=== PATIENT | female | born 1960 ===

== ENCOUNTER → 2020-12-06 10:36 | Outpatient (REF) | payer OTHER, SELFPAY ==
--- NOTE | 2020-12-06 10:30 | CA_ITS ---
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 Normal LV systolic and diastolic function 2. Probably mild mitral regurgitation 3. Normal RV systolic pressure 4. No pericardial effusion is Findings Left Ventricle Normal left ventricular size, thickness, and systolic function. The visually estimated ejection fraction is between 60-65%. Diastolic function is normal for age. Right Ventricle Normal right ventricular cavity size and systolic function. Atria Both atria are normal in size. Interatrial shunt cannot be excluded. Aortic Valve The aortic valve structure and function is likely normal. There is no aortic valve stenosis. There is no aortic valve regurgitation. Mitral Valve Likely normal mitral valve structure and function. There is mild mitral valve regurgitation. There is no mitral valve stenosis. Pulmonic Valve The pulmonic valve was not well visualized. Tricuspid Valve Likely normal tricuspid valve structure and function. There is trace tricuspid valve regurgitation. The right ventricular systolic pressure is normal. The right ventricular systolic pressure is 24 mmHg. Normal right atrial pressure. There is no evidence of pulmonary hypertension. Great Vessels All visible segments of the aorta are normal in size. The pulmonary artery was not well visualized. Venous The inferior vena cava is normal in size and collapses greater than 50% with inspiration. Pericardium/Pleural There is no evidence of pericardial effusion. Prior Study Comparison No significant change compared to prior study dated: 09/24/2018. Measurements 2D Linear Measurements IVSd: 1.03 0.6-0.9/0.6-1.0 cm LVIDd: 4.83 3.9-5.3/4.2-5.9 cm LVIDd Index: 2.67 2.4-3.2/2.2-3.1 cm/m2 LVIDs: 3.25 2.0-3.6 cm LVPWd: 0.94 0.7-1.1 cm Ao Root: 2.10 2.1-3.5 cm LA Diam: 3.70 2.7-3.8/3.0-4.0 cm LAIDs Index: 2.04 1.5-2.3 cm/m2 LV Mass: 209.10 67-162/88-224 g LV Mass Index: 115.53 43-95/49-115 g/m2 LVOT Diam: 2.00 3.0+(-)1.3 cm 2D Systolic Function EF 4C: 56.50 >55% Mitral Valve MV Pk E: 0.71 MV PK A: 0.53 MV Decel Time: 193.00 E/A: 1.30 E'Lateral: 12.20 E'Medial: 9.19 E/E' Med: 7.70 E/E' Lat: 5.80 PHT: 56.00 MVA PHT: 3.93 Decel [place]: 3.67 Aortic Valve AoV Pk Jared: 1.30 AoV Pk Grad: 7.00 LVOT LVOT Pk Jared: 0.98 LVOT Mn Jared: 0.67 LVOT VTI: 0.21 LVOT Pk Grad: 4.00 LVOT Mn Grad: 2.00 LVOT Diam: 2.00 LVOT Area: 3.14 Diastolic Function MV Pk E: 0.71 MV Pk A: 0.53 E/A: 1.30 E'Medial: 9.19 E/E' Med: 7.70 E' Laterial: 12.20 E/E' Lat: 5.80 Tricuspid Valve TR Pk Jared: 2.28 TR Pk Grad: 21.00 RA Press: 3.00 RVSP: 24.00 Great Vessels Aorta Ao Root-2D: 2.10 2.0-3.7 cm Ao Asc: 3.60 2.1-3.4 cm Ao Arch: 2.80 Updated in Other Vendor System with Status of Final Salvatore Carolina MD electronically signed on 12/06/2020 4:52:11 PM with status of Final
== END ==
LOC: HO.CARD 10:36
PROVIDERS: Visit Provider Family Medicine
DX: I34.0 Nonrheumatic mitral (valve) insufficiency (principal)
CPT/HCPCS: 93306

== ENCOUNTER 2020-12-24 12:45 | Outpatient (REF) | payer OTHER, SELFPAY | END 2020-12-24 12:46 | disposition home or self-care (01) | LOC: HO.HMGCLDS 12:45 | PROVIDERS: PCP Family Medicine; Visit Provider Internal Medicine | DX: Z20.822 Contact with and (suspected) exposure to COVID-19 (principal) | CPT/HCPCS: 36415; C9803; U0003 ==

== ENCOUNTER 2020-12-31 14:05 | Outpatient (REF) | payer OTHER, SELFPAY ==
[2020-12-31 14:20] LABS: Glucose Urine UA NEG (NEG); Leukocyte Esterase Urine 1+ (NEG); Nitrite Urine NEG (NEG); Specific Gravity - Urine 1.025 (1.005-1.025); UACC Culture Trigger YES; Urine Blood NEG (NEG); Urine Ketones NEG (NEG); Urine Protein NEG (NEG-TRACE)
[2020-12-31 14:21] LABS: Appearance Urine HAZY; Color Urine YELLOW
[2020-12-31 14:40] LABS: Bacteria Urine TRACE /LPF; Calcium Oxalate Crystals Urine 1+ /LPF; RBC Urine 0 /HPF (0); Squamous Epithelial Cell Urine 2+ /LPF
== END 2020-12-31 14:06 | disposition home or self-care (01) ==
LOC: HO.LNP 14:05
PROVIDERS: Visit Provider Physician Assistant
DX: N39.0 Urinary tract infection, site not specified (principal)
CPT/HCPCS: 81001; 81003; 87086

== ENCOUNTER 2021-01-08 16:45 | Outpatient (REF) | payer OTHER, SELFPAY | END 2021-01-08 16:46 | disposition home or self-care (01) | LOC: HO.LNP 16:45 | PROVIDERS: Visit Provider Nurse Practitioner Family | DX: N39.0 Urinary tract infection, site not specified (principal); N76.0 Acute vaginitis; B96.89 Other specified bacterial agents as the cause of diseases classified elsewhere | CPT/HCPCS: 87086 ==

== ENCOUNTER 2021-01-16 16:50 | Outpatient (REF) | payer OTHER, SELFPAY ==
--- NOTE | ~2021-01-16 | XR_ITS ---
EXAMINATION: XR KNEE, LEFT CLINICAL INFORMATION: Unspecified injury of left lower leg COMPARISON: Left knee 10/04/2019 TECHNIQUE: Four views of the left knee. FINDINGS: Again seen are some minimal unchanged degenerative changes in the patellofemoral joint. Some tiny osteophytes are noted arising from the tibial tuberosities. No fracture or effusion is seen. XR/XR knee LT 4V IMPRESSION: Minimal unchanged degenerative changes. No acute injury seen.
== END 2021-01-16 16:51 | disposition home or self-care (01) ==
LOC: HO.HMGCX 16:50
PROVIDERS: PCP Family Medicine; Visit Provider Nurse Practitioner Family
DX: S89.92XA Unspecified injury of left lower leg, initial encounter (principal)
CPT/HCPCS: 73564

== ENCOUNTER 2021-01-17 10:31 | Outpatient (REF) | payer OTHER, SELFPAY ==
--- NOTE | ~2021-01-17 | US_ITS ---
EXAMINATION: US ABDOMEN COMPLETE CLINICAL INFORMATION: Epigastric pain. COMPARISON: Renal ultrasound 02/11/2019 and 03/17/2014. CT abdomen and pelvis 04/12/2016. KUB 03/04/2011. TECHNIQUE: Real-time imaging of the abdominal viscera. FINDINGS: PANCREAS: Visualized pancreas is unremarkable. The tail is obscured by bowel gas shadowing. ABDOMINAL AORTA: Visualized portions unremarkable. INFERIOR VENA CAVA: Visualized portions unremarkable. LIVER: Unremarkable. GALLBLADDER: Unremarkable. COMMON BILE DUCT: Normal in caliber measuring 0.5 cm in diameter. RIGHT KIDNEY: 11.7 cm. Unremarkable. LEFT KIDNEY: 11.8 cm. Unremarkable. SPLEEN: 10.0 cm. Unremarkable. FREE FLUID: None. US/US abdomen complete IMPRESSION: Unremarkable abdominal ultrasound.
== END 2021-01-17 10:32 | disposition home or self-care (01) ==
LOC: HO.HMGCX 10:31
PROVIDERS: PCP Family Medicine; Visit Provider Family Medicine
DX: R10.13 Epigastric pain (principal)
CPT/HCPCS: 76700

== ENCOUNTER 2021-01-28 12:07 | Outpatient (REF) | payer OTHER, SELFPAY ==
--- NOTE | ~2021-01-28 | XR_ITS ---
EXAMINATION: XR KNEE, RIGHT CLINICAL INFORMATION: Pain COMPARISON: Previous x-ray September 2019 TECHNIQUE: Four views of the right knee. FINDINGS: Bone alignment is normal. No fracture or dislocation is seen. There are small osteophytes at the patellofemoral joint. Joint spaces are otherwise normal. There is an osteophyte at the quadriceps tendon insertion to the patella. There is no joint effusion. XR/XR knee RT 4V IMPRESSION: Mild degenerative changes at the patellofemoral joint.
--- NOTE | ~2021-01-28 | XR_ITS ---
EXAMINATION: LEFT ELBOW AND FOREARM X-RAY CLINICAL INFORMATION: Pain COMPARISON: None TECHNIQUE: 3 views of the left elbow and 2 views of the left forearm FINDINGS: Left elbow: Bone alignment is normal. No fracture or dislocation is seen. Joint spaces are normal. There is no joint effusion. Left forearm: Bone alignment is normal. No acute fracture or dislocation is seen. There is question of old trauma to the radial styloid. Joint spaces are normal. Soft tissues are normal. XR/XR forearm LT 2V IMPRESSION: Left elbow: Unremarkable exam. Left forearm: Question old trauma to the radial styloid otherwise unremarkable exam.
--- NOTE | ~2021-01-28 | XR_ITS ---
EXAMINATION: LEFT ELBOW AND FOREARM X-RAY CLINICAL INFORMATION: Pain COMPARISON: None TECHNIQUE: 3 views of the left elbow and 2 views of the left forearm FINDINGS: Left elbow: Bone alignment is normal. No fracture or dislocation is seen. Joint spaces are normal. There is no joint effusion. Left forearm: Bone alignment is normal. No acute fracture or dislocation is seen. There is question of old trauma to the radial styloid. Joint spaces are normal. Soft tissues are normal. XR/XR elbow LT min 3V IMPRESSION: Left elbow: Unremarkable exam. Left forearm: Question old trauma to the radial styloid otherwise unremarkable exam.
== END 2021-01-28 12:08 | disposition home or self-care (01) ==
LOC: HO.XRAY 12:07
PROVIDERS: Visit Provider Nurse Practitioner Family
DX: M25.561 Pain in right knee (principal); M79.602 Pain in left arm
CPT/HCPCS: 73080; 73090; 73564

== ENCOUNTER 2021-03-15 11:54 | Outpatient (REF) | payer OTHER, SELFPAY ==
--- NOTE | ~2021-03-15 | XR_ITS ---
EXAMINATION: XR HAND, LEFT CLINICAL INFORMATION: Pain COMPARISON: Left hand x-ray August 2010 TECHNIQUE: PA, lateral, and oblique views of the left hand. FINDINGS: The bones and soft tissues are normal. No fracture. Alignment is anatomic. Joint spaces are maintained. No erosions or soft tissue calcifications. XR/XR hand LT min 3V IMPRESSION: Normal left hand.
== END 2021-03-15 11:55 | disposition home or self-care (01) ==
LOC: HO.HMGCX 11:54
PROVIDERS: PCP Family Medicine; Visit Provider Nurse Practitioner Family
DX: M79.645 Pain in left finger(s) (principal)
CPT/HCPCS: 73130

== ENCOUNTER 2021-04-25 14:09 | Outpatient (REF) | payer OTHER, SELFPAY ==
--- NOTE | ~2021-04-25 | XR_ITS ---
EXAMINATION: XR CHEST 2 VIEWS CLINICAL INFORMATION: Persistent nocturnal cough of several months duration. COMPARISON: Radiographs dated 01/28/2018. TECHNIQUE: Frontal and lateral views of the chest were obtained. FINDINGS: The heart, great vessels, pulmonary vasculature and mediastinum are normal. The lungs show no focal infiltrate, effusion or pneumothorax. There is no acute osseous abnormality. There is multi-level thoracic spondylosis, with an appearance suggesting possible DISH (diffuse idiopathic skeletal hyperostosis). XR/XR chest 2V IMPRESSION: No active cardiopulmonary disease.
== END 2021-04-25 14:10 | disposition home or self-care (01) ==
LOC: HO.XRAY 14:09
PROVIDERS: PCP Family Medicine; Visit Provider Family Medicine
DX: R05 Cough (principal)
CPT/HCPCS: 71046

== ENCOUNTER 2021-06-17 11:06 | Outpatient (REF) | payer OTHER, SELFPAY ==
--- NOTE | ~2021-06-17 | XR_ITS ---
EXAMINATION: XR RIBS, LEFT CLINICAL INFORMATION: Pleurodynia COMPARISON: None TECHNIQUE: 3 views of the left ribs were obtained. FINDINGS: The lungs are well-expanded and clear. The heart size and pulmonary vascularity is normal. There is moderate spondylosis dorsal spine. No lytic process. Multiple views of left ribs reveal no visible acute fracture, dislocation or subluxation seen. No soft tissue abnormality seen. XR/XR ribs LT min 3V w CXR1V IMPRESSION: No acute cardiopulmonary process seen. No visible left rib fracture.
== END 2021-06-17 11:07 | disposition home or self-care (01) ==
LOC: HO.XRAY 11:06
PROVIDERS: PCP Family Medicine; Referring Provider Family Medicine; Visit Provider Emergency Medicine
DX: R07.81 Pleurodynia (principal); Z91.81 History of falling
CPT/HCPCS: 71101

== ENCOUNTER 2021-08-30 13:55 | Outpatient (REF) | payer OTHER, SELFPAY ==
--- NOTE | ~2021-08-30 | MM_ITS ---
EXAMINATION: MM SCREENING DIGITAL BREAST TOMOSYNTHESIS, BILATERAL CLINICAL INFORMATION: Screening. Asymptomatic. The lifetime risk of breast cancer based on the Tyrer-Cuzick Model is 5%. COMPARISON: Mammography: 08/24/2020, 04/19/2019, 03/22/2018 TECHNIQUE: Digital breast tomosynthesis is performed in both the craniocaudal and mediolateral oblique views along with computer-aided detection (CAD). Synthesized 2D images are generated from the tomosynthesis. Additional bilateral CC and additional bilateral MLO views are provided. FINDINGS: There are scattered areas of fibroglandular density (ACR BI-RADS breast composition Category b). Breast tissue composition borders on predominantly fatty. Background stromal and fibroglandular densities are stable. There is no interval mass or architectural abnormality or abnormal calcifications. The axilla and skin contours are unremarkable. No significant changes. MM/MM tomosynthesis screening BI IMPRESSION: No mammographic evidence of malignancy. ASSESSMENT: BI-RADS 1: Negative RECOMMENDATION: Routine annual mammography screening. This patient's information was entered into a reminder system with a target due date for their next mammogram.
== END 2021-08-30 13:56 | disposition home or self-care (01) ==
LOC: HO.MAMMO 13:55
PROVIDERS: Visit Provider Family Medicine
DX: Z12.31 Encounter for screening mammogram for malignant neoplasm of breast (principal)
CPT/HCPCS: 77063; 77067

== ENCOUNTER → 2021-09-12 09:40 | Outpatient (BNVA) | payer OTHER, SELFPAY | PROVIDERS: PCP Family Medicine; Visit Provider Internal Medicine Pulmonary Disease | DX: K21.9 Gastro-esophageal reflux disease without esophagitis (principal); R05.3 Chronic cough | CPT/HCPCS: 99202 ==

== ENCOUNTER 2021-09-23 09:52 | Outpatient (REF) | payer OTHER, SELFPAY ==
--- NOTE | 2021-09-23 17:11 | PFT_ITS ---
The patient was unable to perform slow vital capacity maneuver despite several attempts and different coaching methods. The patient did not want to continue further with the test. Test was aborted. IMPRESSION: Aborted pulmonary function test. MD NATIVIDAD Pozo/KIM / [phone]
== END 2021-09-23 09:53 | disposition home or self-care (01) ==
LOC: HO.RESP 09:52
PROVIDERS: PCP Family Medicine; Visit Provider Internal Medicine Pulmonary Disease
DX: Z13.89 Encounter for screening for other disorder (principal)

== ENCOUNTER 2021-09-25 14:09 | Outpatient (REF) | payer OTHER, SELFPAY ==
[2021-09-25 15:08] LABS: Influenza A PCR NEGATIVE (Negative); Influenza B PCR NEGATIVE (Negative); Resp Syncy Virus RNA Qual PCR NEGATIVE (Negative); SARS COV2 PCR INHOUSE POSITIVE (Negative)
== END 2021-09-25 14:10 | disposition home or self-care (01) ==
LOC: HO.LNP 14:09
PROVIDERS: Visit Provider Physician Assistant Medical
DX: J06.9 Acute upper respiratory infection, unspecified (principal); Z20.822 Contact with and (suspected) exposure to COVID-19
CPT/HCPCS: 0241U

== ENCOUNTER → 2021-12-04 14:08 | Outpatient (BNVA) | payer OTHER, SELFPAY | PROVIDERS: PCP Family Medicine; Visit Provider Internal Medicine Pulmonary Disease | DX: R05.3 Chronic cough (principal) | CPT/HCPCS: 99212 ==

== ENCOUNTER → 2022-03-21 13:32 | Outpatient (BNVA) | payer OTHER, SELFPAY | PROVIDERS: PCP Family Medicine; Visit Provider Internal Medicine Pulmonary Disease | DX: R05.3 Chronic cough (principal); Z79.899 Other long term (current) drug therapy | CPT/HCPCS: 99212 ==

== ENCOUNTER 2022-04-17 07:56 | Outpatient (REF) | payer OTHER, SELFPAY | END 2022-04-17 07:57 | disposition home or self-care (01) | LOC: HO.HOSX 07:56 | PROVIDERS: Visit Provider Physician Assistant | DX: Z13.89 Encounter for screening for other disorder (principal) ==

== ENCOUNTER 2022-04-29 09:02 | Outpatient (REF) | payer OTHER, SELFPAY | END 2022-04-29 09:03 | disposition home or self-care (01) | LOC: HO.HOSX 09:02 | PROVIDERS: Visit Provider Orthopaedic Surgery | DX: Z13.89 Encounter for screening for other disorder (principal) ==

== ENCOUNTER 2022-05-22 05:38 | Outpatient (REF) | payer OTHER, SELFPAY ==
--- NOTE | ~2022-05-22 | XR_ITS ---
EXAMINATION: AP BILATERAL KNEE AND LEFT KNEE 2 VIEWS CLINICAL INFORMATION: Pain right knee. COMPARISON: Right knee 01/28/2021. TECHNIQUE: AP bilateral knee standing and right knee 2 views. FINDINGS: AP BILATERAL KNEE: The medial and lateral compartment joint space of both knees are normal. No visible fracture, dislocation or bony erosive changes seen. The soft tissues are normal. LEFT KNEE: There is loss of patellofemoral compartment joint space. No bony erosive changes. The soft tissues are normal. XR/XR knee standing BI IMPRESSION: Unremarkable AP bilateral knee exam. Unremarkable left knee exam.
--- NOTE | ~2022-05-22 | XR_ITS ---
EXAMINATION: AP BILATERAL KNEE AND LEFT KNEE 2 VIEWS CLINICAL INFORMATION: Pain right knee. COMPARISON: Right knee 01/28/2021. TECHNIQUE: AP bilateral knee standing and right knee 2 views. FINDINGS: AP BILATERAL KNEE: The medial and lateral compartment joint space of both knees are normal. No visible fracture, dislocation or bony erosive changes seen. The soft tissues are normal. LEFT KNEE: There is loss of patellofemoral compartment joint space. No bony erosive changes. The soft tissues are normal. XR/XR knee LT 2V IMPRESSION: Unremarkable AP bilateral knee exam. Unremarkable left knee exam.
== END 2022-05-22 05:39 | disposition home or self-care (01) ==
LOC: HO.HOSX 05:38
PROVIDERS: Visit Provider Physician Assistant
DX: M22.2X2 Patellofemoral disorders, left knee (principal); M25.561 Pain in right knee; M25.562 Pain in left knee; M17.0 Bilateral primary osteoarthritis of knee
CPT/HCPCS: 73560; 73565; 99212

== ENCOUNTER 2022-08-08 12:39 | Outpatient (REF) | payer OTHER, SELFPAY ==
--- NOTE | ~2022-08-08 | XR_ITS ---
EXAMINATION: XR WRIST, RIGHT CLINICAL INFORMATION: Right wrist pain. COMPARISON: None TECHNIQUE: PA, lateral, and oblique views of the right wrist. FINDINGS: The bones and soft tissues are unremarkable aside from the presence of a tiny focus of calcification at the tip of the ulnar styloid of questionable significance. Alignment is anatomic with normal joint spaces. No erosions or abnormal soft tissue calcifications. XR/XR wrist RT min 3V IMPRESSION: No acute finding. Tiny area of calcification in the tip of the ulnar styloid may be related to remote trauma.
== END 2022-08-08 12:40 | disposition home or self-care (01) ==
LOC: HO.HMGCX 12:39
DX: M25.531 Pain in right wrist (principal)
CPT/HCPCS: 73110

== ENCOUNTER 2022-08-12 09:05 | Outpatient (REF) | payer OTHER, SELFPAY ==
--- NOTE | ~2022-08-12 | XR_ITS ---
EXAMINATION: XR HAND, RIGHT CLINICAL INFORMATION: Pain in right hand. COMPARISON: X-rays of the right wrist 08/08/2022 TECHNIQUE: PA, lateral, and oblique views of the right hand. FINDINGS: The bones and soft tissues are normal. No fracture. Alignment is anatomic. Joint spaces are maintained. No erosions. Minimal tiny calcification distal to the ulnar styloid unchanged dating back to 2009 likely dystrophic without clinical significance. XR/XR hand RT min 3V IMPRESSION: Normal right hand.
== END 2022-08-12 09:06 | disposition home or self-care (01) ==
LOC: HO.HOSX 09:05
PROVIDERS: Visit Provider Orthopaedic Surgery
DX: M65.4 Radial styloid tenosynovitis [de Quervain] (principal)
CPT/HCPCS: 20550; 73130; 99202; J1100

== ENCOUNTER 2022-09-01 10:28 | Outpatient (REF) | payer OTHER, SELFPAY ==
--- NOTE | ~2022-09-01 | MM_ITS ---
EXAMINATION: MM SCREENING DIGITAL BREAST TOMOSYNTHESIS, BILATERAL CLINICAL INFORMATION: Screening. Asymptomatic. The lifetime risk of breast cancer based on the Tyrer-Cuzick Model is 5%. COMPARISON: Mammography: 08/30/2021, 08/24/2020, 04/19/2019 TECHNIQUE: Digital breast tomosynthesis is performed in both the craniocaudal and mediolateral oblique views along with computer-aided detection (CAD). Synthesized 2D images are generated from the tomosynthesis. FINDINGS: There are scattered areas of fibroglandular density (ACR BI-RADS breast composition Category b). There are no significant masses, abnormal calcifications, or other abnormalities. Breast tissue composition borders on predominantly fatty. The stromal and fibroglandular markings are stable. No developing density. No architectural abnormality. The axilla are unremarkable. MM/MM tomosynthesis screening BI IMPRESSION: No mammographic evidence of malignancy. ASSESSMENT: BI-RADS 1: Negative RECOMMENDATION: Routine annual mammography screening. This patient's information was entered into a reminder system with a target due date for their next mammogram.
== END 2022-09-01 10:29 | disposition home or self-care (01) ==
LOC: HO.MAMMO 10:28
PROVIDERS: PCP Family Medicine; Visit Provider Family Medicine
DX: Z12.31 Encounter for screening mammogram for malignant neoplasm of breast (principal)
CPT/HCPCS: 77063; 77067

== ENCOUNTER 2022-09-21 00:33 | Emergency (ER) | payer OTHER, SELFPAY ==
--- NOTE | ~2022-09-21 | XR_ITS ---
EXAMINATION: XR FOOT, RIGHT CLINICAL INFORMATION: Toe pain COMPARISON: None TECHNIQUE: AP, lateral, and oblique views of the right foot. FINDINGS: No acute fracture or dislocation. Demineralized bones. Small marginal osteophytes of the first metatarsophalangeal joint. Bulky plantar posterior calcaneal enthesophytes. Diffuse mild soft tissue swelling. XR/XR foot RT 2V IMPRESSION: No acute findings
[2022-09-21 00:54] VITALS: BP 154/89; PULSE 84; RESP 20; TEMP 37.3; O2SAT 98; BMI 37.3
[2022-09-21] MEDS: Acetaminophen 325 MG TABLET 650 MG PO (00:59)
[2022-09-21 04:39] VITALS: BP 137/73; PULSE 90; RESP 20; TEMP 36.7; O2SAT 99
--- NOTE | 2022-09-21 06:10 | ED_ITS ---
HPI - Extremity Injury (Lower) General Chief Complaint: Extremity Injury, Lower Stated Complaint: foot pain Time Seen by Provider: 09/21/22 05:28 Source: patient Mode of arrival: ambulatory History of Present Illness HPI Narrative: 61-year-old female who is diabetic states that she began having significant pain at the right MTP and denies any preceding trauma. Related Data Home Medications Medication Instructions Recorded Confirmed aspirin 81 mg tablet,delayed 81 mg PO DAILY 03/15/21 09/20/22 release atorvastatin 40 mg tablet 40 mg PO BEDTIME 03/15/21 09/20/22 cholecalciferol (vitamin D3) 50 50 mcg PO DAILY 03/15/21 09/20/22 mcg (2,000 unit) tablet docusate sodium 100 mg capsule 100 mg PO BID 03/15/21 09/20/22 multivitamin-ferrous 0 tab PO 03/15/21 09/20/22 fumarate-folic acid 18 mg-400 mcg tablet omeprazole 20 mg capsule,delayed 20 mg PO BID 03/15/21 09/20/22 release polyethylene glycol 3350 17 17 g PO DAILY PRN constipation 03/15/21 09/20/22 gram/dose oral powder sertraline 50 mg tablet 50 mg PO DAILY 03/15/21 09/20/22 albuterol sulfate 90 mcg/actuation 2 puff PO Q4-6H PRN cough 03/21/22 09/20/22 aerosol inhaler losartan 50 mg tablet 50 mg PO DAILY 03/21/22 09/20/22 ascorbate calcium (vitamin C) 500 500 mg PO DAILY 05/22/22 09/20/22 mg tablet blood sugar diagnostic (FreeStyle #10 ea 05/22/22 09/20/22 Lite Strips) omega 0-gwq-ipa-fish oil 100 cap PO DAILY 05/22/22 09/20/22 mg-160 mg-1,000 mg capsule (Fish Oil) polyethylene glycol 3350 17 gram 17 g PO DAILY 09/20/22 09/20/22 oral powder packet (Miralax) Previous Rx's Medication Instructions Recorded fluticasone furoate 200 1 inh inhalation DAILY 30 days #1 12/04/21 mcg-vilanterol 25 mcg/dose ea inhalation powder (Breo Ellipta) diclofenac sodium 1 % topical gel 2 g topical QID #100 grams 09/20/22 (Voltaren Arthritis Pain) Allergies Allergy/AdvReac Type Severity Reaction Status Date / Time ibuprofen [From MOTRIN] Allergy Mild RASH Verified 09/21/22 00:53 Motrin Allergy Unknown rash Verified 09/21/22 00:53 Review of Systems Review of Systems: Pertinent positives and negatives as stated in HPI 10 point review of systems is otherwise negative. 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 GENERAL: Well developed, well nourished, in no acute distress. HEAD: Normocephalic/atraumatic EYES: PERRLA, EOMI EARS: Ext canals without abnormality OROPHARYNX: no oral lesions noted, posterior pharynx clear LUNGS: Normal breath sounds. No adventitious sounds or accessory muscle use. SpO2<99> CARDIOVASCULAR: Regular rate and rhythm without noted murmurs ABDOMEN: Soft, non-tender, non-distended with bowel sounds. MUSCULOSKELETAL: No tenderness, deformities, or effusions noted on gross inspection. EXTREMITIES: No cyanosis, clubbing or edema; RIGHT GREAT TOE: Erythematous and mildly swollen at the MTP, appears to be consistent with a gouty flare, no skin breaks noted, no toenail injuries. SKIN: Inspection of the skin reveals no rashes NEUROLOGIC: Alert and oriented x 4. Strength and sensation to light touch were grossly intact x 4. Course Course Course Narrative: 61-year-old female with history and clinical presentation most likely consistent with gout flare and will provide medication and I have instructed this patient to follow-up with her primary care provider. Review of the x-ray is negative for any bony or joint abnormality. Discharge Plan Discharge Clinical Impression: Gout attack Patient Disposition: Home, Self-Care Instructions: Gout (ED), Low Purine Diet (ED) Additional Instructions: 1. Resume all home medications as prescribed. 2. Suspect that you have gout and have undergone initial treatment. 3. Drink plenty of water over the next 24-48 hours. 4. Please follow-up with primary care provider by calling the office on Thursday morning. Return to the ER for worsening symptoms. Prescriptions: No Action polyethylene glycol 3350 17 gram/dose powder 17 g PO DAILY PRN (Reason: constipation) Centrum Women 18-400 mg-mcg tablet 0 tab PO cholecalciferol (vitamin D3) 50 mcg (2,000 unit) tablet 50 mcg PO DAILY sertraline 50 mg tablet 50 mg PO DAILY aspirin 81 mg tablet,delayed release (DR/EC) 81 mg PO DAILY omeprazole 20 mg capsule,delayed release(DR/EC) 20 mg PO BID atorvastatin 40 mg tablet 40 mg PO BEDTIME docusate sodium 100 mg capsule 100 mg PO BID polyethylene glycol 3350 [Miralax] 17 gram powder in packet 17 g PO DAILY diclofenac sodium [Voltaren Arthritis Pain] 1 % gel 2 g topical QID Qty: 100 0RF Rx Instructions: apply to single elbow, wrist or hand; for hand includes palm/fingers/back of hand losartan 50 mg tablet 50 mg PO DAILY albuterol sulfate 90 mcg/actuation HFA aerosol inhaler 2 puff PO Q4-6H PRN (Reason: cough) (DME) FreeStyle Lite Strips Strip See Rx Instructions Not Applicable BID Qty: 10 Rx Instructions: As directed ascorbate calcium (vitamin C) 500 mg tablet 500 mg PO DAILY Fish Oil 100-160-1,000 mg capsule PO DAILY Breo Ellipta 200-25 mcg/dose blister with device 1 inh inhalation DAILY 30 Days Qty: 1 6RF Referrals: Lorene Lugo DO [Primary Care Provider] -
[2022-09-21] MEDS: Colchicine 0.6 MG TABLET 1.2 MG PO (06:32)
[2022-09-21] MEDS: Colchicine 0.6 MG TABLET PO (06:34)
== END 2022-09-21 06:43 | disposition home or self-care (01) ==
PROVIDERS: Emergency Provider Student in an Organized Health Care Education/Training Program; PCP Family Medicine
DX: M10.09 Idiopathic gout, multiple sites (principal); Z79.899 Other long term (current) drug therapy
CPT/HCPCS: 73620; 99284

== ENCOUNTER → 2022-09-30 09:25 | Outpatient (BNVA) | payer OTHER, SELFPAY | PROVIDERS: PCP Family Medicine; Visit Provider Orthopaedic Surgery | DX: M65.4 Radial styloid tenosynovitis [de Quervain] (principal) | CPT/HCPCS: 99212 ==

== ENCOUNTER 2022-10-13 10:30 | Day surgery (SDC) | payer OTHER, SELFPAY ==
[2022-10-13 11:53] VITALS: BP 153/60; PULSE 75; RESP 16; TEMP 36.7; O2SAT 97; BMI 37.3
--- NOTE | 2022-10-13 13:16 | MHC.SHP ---
Pre-Procedural Eval Section A Date of Service: 10/13/22 The patient is an INPATIENT: No Changes since office visit: No Cold of Flu in the past 2 weeks, No New Medical Problems, No Changes in Medication and No Patient answered all questions The History & Physical has been completed within 30 days and I have reviewed it.: Yes Section B Chief Complaint: Radial styloid tenosynovitis [de Quervain] Allergies: Allergies Allergy/AdvReac Type Severity Reaction Status Date / Time ibuprofen [From MOTRIN] Allergy Mild RASH Verified 09/30/22 10:00 Motrin Allergy Unknown rash Verified 09/30/22 10:00 Plan I have reviewed the history and physical and performed a pertinent physical examination on my patient. No changes have occurred unless specified.
--- NOTE | 2022-10-13 13:16 | W.PM.OPN ---
Operative Note Operative Note Date of Service: 10/13/22 Narrative: Operative Note Preop diagnosis: 1. [ ] DeQuervain's tenosynovitis Postop diagnosis: 1. right DeQuervain's tenosynovitis Procedure: 1. right 1st dorsal compartment release 2. Right abductor pollicis longus tenosynovectomy Surgeon: Antonia Saavedra MD Anesthesia: local block using 1% lidocaine with epinephrine Findings: Thickened 1st dorsal compartment. abundant inflamed tenosynovium about the APL tendon EBL: Less than 5 mL Tourniquet time: None Specimens: None Complications: None Disposition: Brought to recovery room in stable condition Plan: Follow-up for 7-10 days for wound check and suture removal Indications: The patient is 61 years old, with right DeQuervain's tenosynovitis that has been unresponsive to nonoperative management. The risks and benefits of operative treatment including but not limited to risk of damage to blood vessels, nerves, tendons, infection, persistent pain, persistent symptoms, recurrence or possible need for additional surgery were discussed with the patient and the patient wishes to proceed with surgery. Procedure: Once consent was obtained a local block was performed in the preop area using a combination of 1% lidocaine with epinephrine. The patient was then brought back to the operating suite and placed on the operative table in supine position. A tourniquet was applied to the proximal aspect of the right upper extremity and the limb was prepped and draped in a standard surgical fashion. Once assured that we had a good block, a 1.5 cm longitudinal incision was made centered over the 1st dorsal compartment as it passed over the radial styloid of the right wrist. The incision was made through the skin to the subcutaneous tissues using a #15 blade. Careful dissection was made down to the level of the 1st dorsal compartment using tenotomy scissors, with care being taken to protect the nearby branches of the superficial radial nerve. Once the 1st dorsal compartment was exposed, A longitudinal incision was made in the 1st dorsal compartment 1st using a #15 blade, then using tenotomy scissors under direct visualization. The 1st dorsal compartment was noted to be thickened. both the APL and EPB tendons were noted to be in the same compartment. However, there was abundant inflamed tenosynovium about the APL tendon as well as a bit of an hourglass deformity of the tendon. I performed a tenosynovectomy excising this inflamed tenosynovium from about the APL tendon using tenotomy scissors. Following our release, we saw smooth gliding abductor pollicis longus and extensor pollicis brevis tendons. Once satisfied with our 1st dorsal compartment release and tenosynovectomythe wound was copiously irrigated with normal saline and hemostasis was obtained with a brief period of local pressure. The subcutaneous layer was closed with some 4-0 Vicryl suture, and the skin edges were reapproximated with some 5.0 nylon suture material. A sterile dressing was applied. The patient appears to have tolerated the procedure well and with no complications. All digits were well vascularized at the conclusion of the case.
[2022-10-13 14:23] VITALS: BP 144/62; PULSE 83; RESP 18; TEMP 36.8; O2SAT 97
== END 2022-10-13 14:33 | disposition home or self-care (01) ==
PROVIDERS: PCP Family Medicine; Visit Provider Orthopaedic Surgery
PROC: (CPT 25000; principal; 2022-10-13 12:00)
DX: M65.4 Radial styloid tenosynovitis [de Quervain] (principal)
CPT/HCPCS: 25000; J0171

== ENCOUNTER 2023-01-12 11:14 | Outpatient (REF) | payer OTHER, SELFPAY ==
--- NOTE | ~2023-01-12 | US_ITS ---
EXAMINATION: US RETROPERITONEAL LIMITED (RENAL ONLY) CLINICAL INFORMATION: Pain abdomen and flank. COMPARISON: Abdominal ultrasound 01/17/2021, lumbar radiographs 07/12/2019 TECHNIQUE: Ultrasound of the kidneys is performed using grayscale imaging and color Doppler. FINDINGS: RIGHT KIDNEY: 11.3 x 4.6 x 6.0 cm (SAG x AP x TRV). The kidney is normal in size, contour, and echogenicity. Renal cortical thickness is normal. No focal parenchymal lesions. No hydronephrosis or caliectasis. There are scattered specular echoes in the renal sinus but no focal posterior acoustic shadowing or definite twinkling artifact to confirm nonobstructing calculi. LEFT KIDNEY: 11.2 x 5.0 x 6.0 cm (SAG x AP x TRV). The kidney is normal in size, contour, and echogenicity. Renal cortical thickness is normal. No focal parenchymal lesions. No hydronephrosis or caliectasis. There are scattered specular echoes in the renal sinus but no focal posterior acoustic shadowing or definite twinkling artifact to confirm nonobstructing calculi. US/US renal BI IMPRESSION: 1. No hydronephrosis or caliectasis. 2. No definite posterior acoustic shadowing or twinkling artifact to confirm nonobstructing calculi.
== END 2023-01-12 11:15 | disposition home or self-care (01) ==
LOC: HO.HMGCX 11:14
PROVIDERS: PCP Family Medicine; Visit Provider Nurse Practitioner Family
DX: R10.9 Unspecified abdominal pain (principal); M54.50 Low back pain, unspecified; N39.0 Urinary tract infection, site not specified
CPT/HCPCS: 76775

== ENCOUNTER → 2023-04-29 08:33 | Outpatient (REF) | payer OTHER, SELFPAY ==
--- NOTE | 2023-04-29 08:36 | CA_ITS ---
Transthoracic Echocardiogram Patient (Last, First, Middle): Cheryl Samson I Gender: Female Date of : 1960 Age: 62 Procedure Date: 04/29/2023 Procedure Type: Transthoracic Echocardiogram Location: OP Height: 152.4 cm Weight: 87.54 kg BSA: 1.84 m2 Heart Rate: bpm BP: 130 / 70 mmHg [employer]: TO Referring MD: Lorene Lugo DO Organisation And Methods Analyst: Salvatore Carolina MD Symptoms: FATIGUE R53.83 WORSNING , H/O MR FOR FU Study Quality: Technically Difficult/No IV Access ECG Rhythm: Sinus Conclusions: - 1. Technically limited study, IV access could not be obtained 2. Normal LV systolic function with LVEF of 55-60% with normal filling pattern 3. Mild mitral regurgitation 4. Upper limits normal ascending aortic size Findings Left Ventricle Normal left ventricular size, thickness, and systolic function. The visually estimated ejection fraction is between 55-60%. Regional wall motion abnormalities can not be excluded due to suboptimal endocardial definition. Spectral Doppler is indicative of a normal filling pattern. Right Ventricle Normal right ventricular cavity size and systolic function. Atria The left atrium is likely dilated. Interatrial shunt cannot be excluded. The right atrium was not well visualized. Aortic Valve The aortic valve was not well visualized. There is no aortic valve stenosis. There is no aortic valve regurgitation. Mitral Valve There is mild anterior mitral leaflet thickening. There is mild mitral annular calcification. There is mild mitral valve regurgitation. There is no mitral valve stenosis. Pulmonic Valve The pulmonic valve was not well visualized. Tricuspid Valve The tricuspid valve was not well visualized. Tricuspid regurgitation envelope is inadequate for calculation of right ventricular systolic pressure. Normal right atrial pressure. Great Vessels The pulmonary artery was not well visualized. Venous The inferior vena cava is normal in size. Pericardium/Pleural The pericardium was not well visualized. Prior Study Comparison No significant change compared to prior study dated: 12/06/2020. Measurements 2D Linear Measurements IVSd: 1.07 0.6-0.9/0.6-1.0 cm LVIDd: 4.72 3.9-5.3/4.2-5.9 cm LVIDd Index: 2.57 2.4-3.2/2.2-3.1 cm/m2 LVIDs: 2.98 2.0-3.6 cm LVPWd: 0.88 0.7-1.1 cm LA Diam: 3.40 2.7-3.8/3.0-4.0 cm LAIDs Index: 1.85 1.5-2.3 cm/m2 LV Mass: 199.11 67-162/88-224 g LV Mass Index: 108.21 43-95/49-115 g/m2 LVOT Diam: 2.10 3.0+(-)1.3 cm 2D Systolic Function EF 4C: 56.60 >55% Mitral Valve MV Pk E: 0.69 MV PK A: 0.60 MV Decel Time: 242.00 E/A: 1.20 E'Lateral: 10.10 E'Medial: 5.66 E/E' Med: 12.20 E/E' Lat: 6.80 PHT: 75.00 MVA PHT: 2.93 Decel [place]: 2.56 Aortic Valve AoV Pk Jared: 1.32 AoV Mn Jared: 0.90 AoV VTI: 0.30 AoV Pk Grad: 7.00 Aov Mn Grad: 4.00 KALEN Cont.VTI: 2.39 LVOT LVOT Pk Jared: 0.95 LVOT Mn Jared: 0.63 LVOT VTI: 0.21 LVOT Pk Grad: 4.00 LVOT Mn Grad: 2.00 LVOT Diam: 2.10 LVOT Area: 3.46 Diastolic Function MV Pk E: 0.69 MV Pk A: 0.60 E/A: 1.20 E'Medial: 5.66 E/E' Med: 12.20 E' Laterial: 10.10 E/E' Lat: 6.80 Right Ventricle TAPSE (mm): 20.70 TVS' Jared: 14.40 Tricuspid Valve RA Press: 3.00 Great Vessels Aorta Sinus of Valsalva: 2.86 2.0-3.[address] [place]: 2.43 1.7-3.4 cm Ao Asc: 3.60 2.1-3.4 cm Updated in Other Vendor System with Status of Final Salvatore Carolina MD electronically signed on 05/01/2023 12:54:32 PM with status of Final
== END ==
LOC: HO.CARD 08:33
PROVIDERS: PCP Family Medicine; Visit Provider Family Medicine
DX: G47.30 Sleep apnea, unspecified (principal); R53.83 Other fatigue
CPT/HCPCS: 93306

== ENCOUNTER 2023-06-19 18:04 | Outpatient (REF) | payer OTHER, SELFPAY ==
[2023-06-20 11:48] LABS: BV Int Neg Control Negative (Negative); BV Int Pos Control Positive (Positive)
== END 2023-06-19 18:05 | disposition home or self-care (01) ==
LOC: HO.HHCLNP 18:04
PROVIDERS: Visit Provider Student in an Organized Health Care Education/Training Program
DX: N89.8 Other specified noninflammatory disorders of vagina (principal); R39.9 Unspecified symptoms and signs involving the genitourinary system
CPT/HCPCS: 87086; 87480; 87510; 87660

== ENCOUNTER 2023-07-04 09:15 | Outpatient (AMB) | payer OTHER, SELFPAY ==
--- NOTE | 2023-07-04 09:20 | AM.OFFWIN_ITS ---
Intake Vital Signs 07/04/23 09:25 BP 112/72 Blood Pressure Location Lt brachial Position Sitting Pulse 99 Pulse Source Pulse Oximeter Temp 99.2 F Temp Source Oral Pulse Oximetry (%) 97 Oxygen Delivery Method Room Air Intake Visit Reasons: Cough, runny nose Intake Note: Pt is here today c/o cough and nasal congestion x2days Patient Tobacco Use Status: Never used Tobacco Allergies ibuprofen [From Motrin] Allergy (Mild, Verified 07/04/23 09:48) Rash Medication List - Last Reconciled 07/04/23 by Lacie Byrnes CNP alcohol swabs 0 pad topical DAILY ascorbate calcium (vitamin C) 500 mg PO DAILY aspirin 81 mg PO DAILY atorvastatin 40 mg PO BEDTIME blood sugar diagnostic (FreeStyle Lite Strips) As directed cholecalciferol (vitamin D3) 50 mcg PO DAILY docusate sodium 100 mg PO BID lancets (FreeStyle Lancets) As directed losartan 50 mg PO DAILY dfuhgsqeskhm-dygg-oejll acid 18-400 mg-mcg 0 tabs PO omega 1-ecf-git-fish oil 100-160-1,000 mg (Fish Oil) caps PO DAILY omeprazole 20 mg PO BID polyethylene glycol 3350 17 grams PO DAILY PRN polyethylene glycol 3350 (Miralax) 17 grams PO DAILY sertraline 50 mg PO DAILY HPI HPI Comments History of Present Illness Details 62-year-old female presents today for sick visit complaining of runny nose, cough, and sore throat x2-4 days. She denies known contact to person + for covid, denies fever, chills, CP, SOB, headache, dizziness, abdominal pain, nausea, vomiting, changes in bowels or bladder. She does endorse sinus pressure. 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 Review of Systems Const All systems reviewed & are unremarkable except as noted in HPI and below Physical Exam Vital Signs: Last Vital Signs Temp 99.2 F 07/04/23 09:25 Pulse 99 07/04/23 09:25 BP 112/72 07/04/23 09:25 Pulse Ox 97 07/04/23 09:25 Oxygen Delivery Method Room Air 07/04/23 09:25 Const General: cooperative and no acute distress Nutritional Appearance: well nourished Orientation/consciousness: patient oriented x3 Limitations: no limitations HEENT Head: Yes normocephalic and Yes atraumatic Ears: hearing grossly normal bilaterally and TM's normal bilaterally General nose exam: Abnormal mucous membranes and turbinates present erythematous and no nasal discharge noted Face and sinus: Yes sinus tenderness Mouth: moist mucous membranes Throat: Yes posterior oropharynx normal Eyes General: appearance normal, both eyes and all related structures Resp Effort & Inspection: normal respiratory effort, Actively coughing Quality: dry, no respiratory distress and not tachypneic Auscultation: clear to auscultation bilaterally, no rhonchi and no wheezes Cardio Rate: regular rate Rhythm: regular rhythm Heart sounds: S1 normal heart sound present, S2 normal heart sound present and no murmurs Peripheral pulses: Peripheral pulses 2+ throughout GI Palpation (GI): Soft to palpation, nontender and No hepatosplenomegaly present Auscultation: normal bowel sounds General: Yes no CVA tenderness Back/Spine/Pelvis Back: no CVA tenderness Skin General skin exam: no rashes or lesions noted and turgor normal Neuro General: patient oriented x3, gait normal and moves all extremities Extrem General: Yes normal to inspection, Yes full ROM, Yes capillary refill normal and Yes no clubbing, cyanosis or edema Psych Appearance: well kempt Mental Status: mental status grossly normal Speech and movement: Normal speech and movement present Affect: normal affect Attitude: cooperative Assessment & Plan Assessment & Plan (1) Upper respiratory infection with cough and congestion: Code(s): J06.9 - Acute upper respiratory infection, unspecified Plan: 62-year-old female seen today with his upper respiratory infection symptoms. Nasal swab obtained to rule out COVID/RSV/influenza; will call patient with results Will treat with Z-Angel, 2 tabs p.o. today followed by 1 tab x4 days. Encouraged to drink plenty of fluid and get plenty of rest. Will return to office or follow-up with primary care provider for worsening or unresolved symptoms Orders: Orders SARS-CoV2/FLU/RSV Today J06.9 - Acute upper respiratory infection, unspecified Medications: New azithromycin For 250 mg dose pack: take 500 mg today (day 1), then 250 mg for 4 days (days 2-5) PO 6 tabs 0RF J06.9 - Acute upper respiratory infection, unspecified Coding Level of Care Code Est Pt Level 3 (43176) Diagnoses Upper respiratory infection with cough and congestion J06.9
[2023-07-04 09:25] VITALS: BP 112/72; PULSE 99; TEMP 37.3; O2SAT 97
== END 2023-07-04 09:58 | disposition home or self-care (01) ==
PROVIDERS: PCP Family Medicine; Visit Provider Nurse Practitioner Acute Care
DX: J06.9 Acute upper respiratory infection, unspecified (principal)
CPT/HCPCS: 99213

== ENCOUNTER 2023-07-04 09:56 | Outpatient (REF) | payer OTHER, SELFPAY | END 2023-07-04 09:57 | disposition home or self-care (01) | LOC: HO.LAB 09:56 | PROVIDERS: Visit Provider Nurse Practitioner Acute Care | DX: Z13.89 Encounter for screening for other disorder (principal) ==

== ENCOUNTER 2023-07-07 13:00 | Outpatient (REF) | payer OTHER, SELFPAY ==
[2023-07-07 13:34] LABS: Binax Internal Control QC Valid; Binax Now Covid-19 Ag Positive (Negative); Binax Performed by: PAULP
== END 2023-07-07 13:01 | disposition home or self-care (01) ==
LOC: HO.HMGCLDS 13:00
PROVIDERS: PCP Family Medicine; Visit Provider Internal Medicine
DX: J06.9 Acute upper respiratory infection, unspecified (principal); Z20.822 Contact with and (suspected) exposure to COVID-19
CPT/HCPCS: 87811; C9803

== ENCOUNTER → 2023-07-15 10:28 | Outpatient (REF) | payer OTHER, SELFPAY | LOC: HO.SL 10:28 | PROVIDERS: PCP Family Medicine; Visit Provider Family Medicine | DX: G47.30 Sleep apnea, unspecified (principal); R53.83 Other fatigue | CPT/HCPCS: 95806 ==

== ENCOUNTER → 2023-07-15 19:00 | Outpatient (BNV) | payer OTHER, SELFPAY | PROVIDERS: PCP Family Medicine; Visit Provider Internal Medicine | DX: R06.83 Snoring (principal) | CPT/HCPCS: 95806 ==

== ENCOUNTER 2023-08-25 18:39 | Outpatient (REF) | payer OTHER, SELFPAY | END 2023-08-25 18:40 | disposition home or self-care (01) | LOC: HO.HHCLNP 18:39 | PROVIDERS: Visit Provider Family Medicine | DX: R39.9 Unspecified symptoms and signs involving the genitourinary system (principal) | CPT/HCPCS: 87086 ==

== ENCOUNTER 2023-09-08 10:19 | Outpatient (REF) | payer OTHER, SELFPAY | END 2023-09-08 10:20 | disposition home or self-care (01) | LOC: HO.MAMMO 10:19 | PROVIDERS: PCP Family Medicine; Visit Provider Family Medicine | DX: Z12.31 Encounter for screening mammogram for malignant neoplasm of breast (principal) | CPT/HCPCS: 77063; 77067 ==

== ENCOUNTER → 2023-09-08 10:30 | Outpatient (BNV) | payer OTHER, SELFPAY | PROVIDERS: PCP Family Medicine; Visit Provider Radiology Diagnostic Radiology | DX: Z12.31 Encounter for screening mammogram for malignant neoplasm of breast (principal) | CPT/HCPCS: 77063; 77067 ==

== ENCOUNTER 2023-10-02 08:37 | Outpatient (REF) | payer OTHER, SELFPAY ==
--- NOTE | ~2023-10-02 | US_ITS ---
EXAMINATION: US ABDOMEN COMPLETE CLINICAL INFORMATION: Fatty liver. COMPARISON: Previous ultrasound December [address] of the abdomen and pelvis from 2016 TECHNIQUE: Real-time imaging of the abdominal viscera. FINDINGS: PANCREAS: Normal. ABDOMINAL AORTA: The proximal, mid, and distal segments are normal in caliber. INFERIOR VENA CAVA: Visualized portions are normal. LIVER: The liver is normal in size. The liver contour is normal. Parenchymal echogenicity is slightly increased. No focal hepatic lesion. There is no intrahepatic biliary duct dilatation seen. GALLBLADDER: Normal. The gallbladder is physiologically distended without evidence of stones, sludge, polyps, wall thickening or pericholecystic fluid. COMMON BILE DUCT: Normal in caliber measuring 0.3 cm in diameter. RIGHT KIDNEY: Normal. No hydronephrosis. No renal calculi or focal parenchymal lesions. The kidney measures 11 cm in maximum dimension. LEFT KIDNEY: Question small stone in the lower pole measuring 5 mm No hydronephrosis. No focal parenchymal lesions. The kidney measures 11 cm in maximum dimension. SPLEEN: Normal. The spleen measures 11 cm in maximum dimension. FREE FLUID: None. US/US abdomen complete IMPRESSION: Slightly echogenic liver probably representing fatty infiltration. Question small left renal stone.
== END 2023-10-02 08:38 | disposition home or self-care (01) ==
LOC: HO.HMGCX 08:37
PROVIDERS: PCP Family Medicine; Visit Provider Family Medicine
DX: K76.0 Fatty (change of) liver, not elsewhere classified (principal)
CPT/HCPCS: 76700

== ENCOUNTER 2023-10-27 09:19 | Outpatient (AMB) | payer OTHER, SELFPAY ==
[2023-10-27 10:31] VITALS: BP 120/70; PULSE 74; TEMP 36.7; O2SAT 98; BMI 37.5
--- NOTE | 2023-10-27 10:31 | AM.OFFWIN_ITS ---
Intake Vital Signs 10/27/23 10:31 Height 5 ft Weight 192 lb BMI 37.5 BP 120/70 Blood Pressure Location Lt brachial Position Sitting Pulse 74 Pulse Source Pulse Oximeter Temp 98.0 F Temp Source Oral Pulse Oximetry (%) 98 Oxygen Delivery Method Room Air Intake Visit Reasons: EP ?UTI (lobby) Intake Note: Pt is here today c/o foul urine odor x1week Patient Tobacco Use Status: Never used Tobacco Allergies ibuprofen [From Motrin] Allergy (Mild, Verified 10/27/23 10:43) Rash Medication List - Last Reconciled 10/27/23 by Jason Moscoso MD alcohol swabs 0 pad topical DAILY ascorbate calcium (vitamin C) 500 mg PO DAILY aspirin 81 mg PO DAILY atorvastatin 40 mg PO BEDTIME blood sugar diagnostic (FreeStyle Lite Strips) As directed cholecalciferol (vitamin D3) 50 mcg PO DAILY docusate sodium 100 mg PO BID lancets (FreeStyle Lancets) As directed losartan 50 mg PO DAILY dhakmlcloads-befd-svzud acid 18-400 mg-mcg 0 tabs PO omega 3-fck-mog-fish oil 100-160-1,000 mg (Fish Oil) caps PO DAILY omeprazole 20 mg PO BID polyethylene glycol 3350 17 grams PO DAILY PRN polyethylene glycol 3350 (Miralax) 17 grams PO DAILY sertraline 50 mg PO DAILY HPI EP ?UTI (lobby) HPI Details Patient presents for a sick visit. Reports symptoms of increased frequency of urination, burning on urination and discomfort in the suprapubic area. Symptoms started in the past few days. No fevers or chills. No nausea or vomiting. 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 Physical Exam Vital Signs: Last Vital Signs Temp 98.0 F 10/27/23 10:31 Pulse 74 10/27/23 10:31 BP 120/70 10/27/23 10:31 Pulse Ox 98 10/27/23 10:31 Oxygen Delivery Method Room Air 10/27/23 10:31 BMI result Body Mass Index 37.5 General: Yes Bimanual renal exam normal bilaterally, Yes bladder normal to inspection and Yes no CVA tenderness Back/Spine/Pelvis Back: no CVA tenderness Results AMB Urinalysis, Automated UA Leukoctes 15 Crispin/uL Last Edit by Guillermina Townsend CMA on 10/27/23 10:43 UA Nitrite Negative Last Edit by Guillermina Townsend CMA on 10/27/23 10:43 UA Urobilinogen 0.2 mg/dL Last Edit by Guillermina Townsend CMA on 10/27/23 10:43 UA Protein 0 mg/dL Last Edit by Guillermina Townsend CMA on 10/27/23 10:43 UA pH 6.0 Last Edit by Guillermina Townsend, EDDY on 10/27/23 10:43 UA Blood 80 Norman/uL Last Edit by Guillermina Townsend CMA on 10/27/23 10:43 UA Specific Serena 1.020 Last Edit by Guillermina Townsend CMA on 10/27/23 10:43 UA Ketone Negative Last Edit by Guillermina Townsend CMA on 10/27/23 10:43 UA Bilirubin 0 mg/dL Last Edit by Guillermina Townsend CMA on 10/27/23 10:43 UA Glucose 0 mg/dL Last Edit by Guillermina Townsend CMA on 10/27/23 10:43 Results Reviewed Results Reviewed: Laboratory Last Values Urine pH (Auto) 6.0 10/27/23 10:31 Specific Serena (Auto) 1.020 10/27/23 10:31 Urine Protein (Auto) 0 mg/dL 10/27/23 10:31 Glucose (UA)(Auto) 0 mg/dL 10/27/23 10:31 Urine Ketones (Auto) Negative 10/27/23 10:31 Urine Blood (Auto) 80 Norman/uL 10/27/23 10:31 Urine Nitrite (Auto) Negative 10/27/23 10:31 Urine Bilirubin (Auto) 0 mg/dL 10/27/23 10:31 Urine Urobilinogen (Auto) 0.2 mg/dL 10/27/23 10:31 Leukocyte Esterase (Auto) 15 Crispin/uL 10/27/23 10:31 Assessment & Plan Assessment & Plan (1) Urinary tract infection: Code(s): N39.0 - Urinary tract infection, site not specified Plan: Take antibiotics and Pyridium as directed. Increase fluid intake. If symptoms of burning persist, new onset of fever or lower back pain, to follow-up at the clinic. Orders: Orders AMB Urinalysis Automated Today Z13.9 - Encounter for screening, unspecified Coding Level of Care Code Est Pt Level 3 (90873) Diagnoses Urinary tract infection N39.0
== END 2023-10-27 11:37 | disposition home or self-care (01) ==
PROVIDERS: PCP Family Medicine; Visit Provider Internal Medicine
DX: N39.0 Urinary tract infection, site not specified (principal); R35.0 Frequency of micturition
CPT/HCPCS: 81003; 99213

== ENCOUNTER 2023-11-02 08:58 | Outpatient (REF) | payer OTHER, SELFPAY ==
[2023-11-02 11:26] LABS: MANUAL DIFF FLAG NO
[2023-11-02 11:37] LABS: Basophils Percent Auto 0.4 % (0-2); Eosinophils Absolute Auto 0.1 X10*3/uL (0.0-0.4); Eosinophils Percent Auto 2.5 % (0-4); Hematocrit 38.4 % (37.0-47.0); Hemoglobin 12.1 g/dl (12.0-16.0); Imm Gran Abs Auto 0.02 X10*3/uL (0.00-0.03); Imm Gran Pct Auto 0.4 % (0.0-0.4); Lymphocytes Absolute Auto 1.8 X10*3/uL (1.2-4.9); Lymphocytes Percent Auto 32.4 % (20-40); Mean Corpuscular HGB Conc 31.5 g/dl (31.0-35.0); Mean Corpuscular Hemoglobin 27.6 pg (27.0-33.0); Mean Corpuscular Volume 87.7 fL (80.0-98.0); Monocytes Absolute Auto 0.7 X10*3/uL (0.1-1.2); Monocytes Percent Auto 11.6 % (2-11); Neutrophils Percent Auto 52.7 % (45-73); Platelet Count 215 X10*3/uL (160-400); Red Blood Count 4.38 X10*6/uL (4.20-5.50); White Blood Count 5.7 X10*3/uL (4.8-10.8)
[2023-11-02 11:55] LABS: Alanine Aminotransferase 29 U/L (0-31); Alkaline Phosphatase 78 U/L (39-117); Anion Gap 13 (12-20); Aspartate Amino Transferase 27 U/L (5-31); Bilirubin Direct 0.2 mg/dL (0.0-0.5); Bilirubin Total 0.5 mg/dL (0.0-1.0); Blood Urea Nitrogen 9 mg/dL (9-16); Calcium 9.4 mg/dL (8.4-10.2); Carbon Dioxide 28 mmol/L (22-29); Chloride 106 mmol/L (96-108); Cholesterol 142 mg/dL (<200); Estimated Glomerular Filt Rate > 60; Glucose Random 144 mg/dL (60-115); HDL Cholesterol 48 mg/dL (>40); LDL Cholesterol Calculated 78 mg/dL (<100); Potassium 4.5 mmol/L (3.3-5.1); Sodium 142 mmol/L (135-145); Total Protein 7.3 g/dL (6.5-8.0); Triglycerides 80 mg/dL (<150)
[2023-11-02 12:06] LABS: Estimated Average Glucose 163 mg/dL; Hemoglobin A1c % 7.3 % (<6.0)
[2023-11-02 12:19] LABS: Free T4 (Free Thyroxine) 1.03 ng/dL (0.71-1.85); Thyroid Stimulating Hormone 0.76 uIU/mL (0.32-4.0); Vitamin D 25-OH Total 55.3 ng/mL (>30)
== END 2023-11-02 08:59 | disposition home or self-care (01) ==
LOC: HO.HHCL 08:58
PROVIDERS: Visit Provider Family Medicine
DX: R42 Dizziness and giddiness (principal); E55.9 Vitamin D deficiency, unspecified; E11.9 Type 2 diabetes mellitus without complications; E66.9 Obesity, unspecified; E78.5 Hyperlipidemia, unspecified; R80.9 Proteinuria, unspecified
CPT/HCPCS: 36415; 80048; 80061; 80076; 82306; 83036; 84439; 84443; 85025

== ENCOUNTER 2024-01-22 09:01 | Outpatient (AMB) | payer OTHER, SELFPAY ==
[2024-01-22 09:01] VITALS: BP 132/80; PULSE 76; TEMP 36.1; O2SAT 96; BMI 37.7
--- NOTE | 2024-01-22 09:01 | AM.OFFWIN_ITS ---
Intake Vital Signs 01/22/24 09:01 Height 5 ft Weight 193 lb BMI 37.7 BP 132/80 Blood Pressure Location Lt brachial Position Sitting Pulse 76 Pulse Source Pulse Oximeter Temp 97.0 F Temp Source Temporal Artery Scan Pulse Oximetry (%) 96 Oxygen Delivery Method Room Air Intake Visit Reasons: EP yeast infection Intake Note: pt is here today for yeast infection started 2 days ago Patient Tobacco Use Status: Never used Tobacco Allergies ibuprofen [From Motrin] Allergy (Mild, Verified 01/22/24 09:02) Rash Do you need a note to return to daycare/school/sports/work: No HPI HPI Comments History of Present Illness Details 63 y/o female patient who presents to [facility] in clinic with c/o vaginal itching for 2 days. Denies any H/o STIs. Sexually active with 1 male partner. Denies urinary symptoms. 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 OB/external & speculum: Deferred OB/external & speculum exam Psych Appearance: grossly normal Speech and movement: Normal speech and movement present Affect: normal affect Assessment & Plan Assessment & Plan (1) Vaginal itching: Code(s): N89.8 - Other specified noninflammatory disorders of vagina Plan: - Keep the skin dry and clean - Control BS - Use cream as directed. Medications: New clotrimazole-betamethasone 1-0.05 % 1 appl topical BID 2 weeks 45 grams 0RF N89.8 - Other specified noninflammatory disorders of vagina Coding Level of Care Code Est Pt Level 3 (48297) Diagnoses Vaginal itching N89.8 Time Spent (min) 15
== END 2024-01-22 09:50 | disposition home or self-care (01) ==
PROVIDERS: PCP Family Medicine; Visit Provider Nurse Practitioner Family
DX: N89.8 Other specified noninflammatory disorders of vagina (principal)
CPT/HCPCS: 99213

== ENCOUNTER 2024-01-26 15:18 | Outpatient (AMB) | payer OTHER, SELFPAY ==
[2024-01-26 15:25] VITALS: BP 132/80; PULSE 97; TEMP 36.7; O2SAT 97; BMI 37.7
--- NOTE | 2024-01-26 15:25 | MHC.OFFWIV ---
Intake Vital Signs 01/26/24 15:25 Height 5 ft Weight 193 lb BMI 37.7 BP 132/80 Blood Pressure Location Rt brachial Position Sitting Pulse 97 Pulse Source Pulse Oximeter Temp 98.0 F Temp Source Temporal Artery Scan Pulse Oximetry (%) 97 Oxygen Delivery Method Room Air Intake Visit Reasons: EST/heart palpitations since this morning (lobby) Intake Note: pt is here for c.o heart racing, possible palpitations since this morning, denies any other symptoms Patient Tobacco Use Status: Never used Tobacco Allergies ibuprofen [From Motrin] Allergy (Mild, Verified 01/26/24 15:27) Rash Do you need a note to return to daycare/school/sports/work: No HPI HPI Comments History of Present Illness Details This is a 63-year-old female with a past medical history of diabetes and hyperlipidemia presenting for evaluation of palpitations that she 1st felt last night. Patient states the palpitations have been persistent throughout the day. Patient denies having any chest pain, shortness for breath, cough, dyspnea on exertion, nausea, vomiting, abdominal pain or back pain. Patient denies taking any new medications. Patient has not yet checked her blood glucose today. 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 Review of Systems Const All systems reviewed & are unremarkable except as noted in HPI and below Reports no additional complaints Eyes Reports no additional complaints ENT Reports no additional complaints Card Denies chest pain, Denies chest pain at rest, Denies chest pain with activity, Reports rapid heart rate, Denies lightheadedness, Denies dyspnea and Denies dyspnea on exertion Resp Denies cough, Denies hemoptysis, Denies dyspnea and Denies dyspnea on exertion Physical Exam Vital Signs: Last Vital Signs Temp 98.0 F 01/26/24 15:25 Pulse 97 01/26/24 15:25 BP 132/80 01/26/24 15:25 Pulse Ox 97 01/26/24 15:25 Oxygen Delivery Method Room Air 01/26/24 15:25 BMI result Body Mass Index 37.7 Patient is afebrile and not tachycardic. Const General: cooperative, comfortable and no acute distress Nutritional Appearance: well nourished and overweight Orientation/consciousness: patient oriented x3 Limitations: no limitations HEENT Head: Yes normal to inspection and Yes normocephalic Eyes General: appearance normal, both eyes and all related structures Neck Lymphatic: no lymphadenopathy noted Resp Effort & Inspection: normal respiratory effort, able to speak in complete sentences, normal respiratory pattern, no cough, no respiratory distress and not tachypneic Auscultation: clear to auscultation bilaterally Cardio Rate: tachycardic Rhythm: regular rhythm Neuro General: patient oriented x3 Psych Appearance: grossly normal Mental Status: mental status grossly normal Insight: Good insight present (Psych) Judgement: Good judgement present (Psych) Results Reviewed Results Reviewed: EKG reveals normal sinus rhythm at a rate of 69bpm, blood glucose 107. Assessment & Plan Assessment & Plan (1) Palpitations: Comment: Patient is not tachycardic and is denying chest pain or shortness a breath. Patient's EKG reveals normal sinus rhythm at a rate of 69 beats per minute. Code(s): R00.2 - Palpitations Plan: Follow up with primary care provider as an outpatient within 5-7 days if symptoms persist. Orders: Orders AMB Random Glucose (hemocue) Today Z13.9 - Encounter for screening, unspecified AMB EKG-In Office Today R00.2 - Palpitations Coding Level of Care Code Est Pt Level 3 (01613) Diagnoses Palpitations R00.2 Time Spent (min) 25
== END 2024-01-26 16:39 | disposition home or self-care (01) ==
PROVIDERS: PCP Family Medicine; Visit Provider Physician Assistant
DX: R00.2 Palpitations (principal)
CPT/HCPCS: 99213

== ENCOUNTER → 2024-01-27 08:52 | Outpatient (BNV) | payer OTHER, SELFPAY | PROVIDERS: PCP Family Medicine; Visit Provider Physician Assistant | DX: E11.9 Type 2 diabetes mellitus without complications (principal) | CPT/HCPCS: 82948 ==

== ENCOUNTER 2024-02-17 16:54 | Outpatient (REF) | payer OTHER, SELFPAY ==
[2024-02-18 03:04] LABS: CT PCR NOT DETECTED (Not Detect.); NG PCR NOT DETECTED (Not Detect.)
[2024-02-18 15:42] LABS: BV Int Neg Control Negative (Negative); BV Int Pos Control Positive (Positive)
== END 2024-02-17 16:55 | disposition home or self-care (01) ==
LOC: HO.HHCLNP 16:54
PROVIDERS: Visit Provider Family Medicine
DX: N89.8 Other specified noninflammatory disorders of vagina (principal)
CPT/HCPCS: 0353U; 87480; 87510; 87660

== ENCOUNTER 2024-03-05 09:25 | Outpatient (AMB) | payer OTHER, SELFPAY ==
[2024-03-05 09:42] VITALS: BP 126/80; PULSE 69; TEMP 37.1; O2SAT 99; BMI 38.2
--- NOTE | 2024-03-05 09:42 | MHC.OFFWIV ---
Intake Vital Signs 03/05/24 09:42 Height 5 ft Weight 195 lb 6 oz BMI 38.2 BP 126/80 Blood Pressure Location Lt brachial Position Sitting Pulse 69 Pulse Source Pulse Oximeter Temp 98.8 F Temp Source Oral Pulse Oximetry (%) 99 Oxygen Delivery Method Room Air Intake Visit Reasons: EP Pain LT side~ Head-Ear Intake Note: Patient is here with left sided pain for 2 weeks, started with pain in left side of head down to her leg. Patient Tobacco Use Status: Never used Tobacco Allergies ibuprofen [From Motrin] Allergy (Mild, Verified 03/05/24 09:46) Rash Do you need a note to return to daycare/school/sports/work: No HPI EP Pain LT side~ Head-Ear HPI Details Patient is a 63-year-old female comes to the walk-in clinic complaining of left-sided neck pain for the last 2 weeks. She reports that the pain radiates down the left side of her neck into her shoulder area. No acute weakness numbness or tingling of the upper extremity. No acute trauma noted. 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 Review of Systems Const All systems reviewed & are unremarkable except as noted in HPI and below Physical Exam Vital Signs: Last Vital Signs Temp 98.8 F 03/05/24 09:42 Pulse 69 03/05/24 09:42 BP 126/80 03/05/24 09:42 Pulse Ox 99 03/05/24 09:42 Oxygen Delivery Method Room Air 03/05/24 09:42 BMI result Body Mass Index 38.2 Const General: cooperative, healthy appearing, comfortable, no acute distress, alert, awake, Physically active and well groomed; No anxious, diaphoretic, ill appearing, intoxicated appearing, poor hygiene or tired appearing Nutritional Appearance: average body habitus Orientation/consciousness: oriented to person Limitations: no limitations HEENT Head: Yes normal to inspection, Yes normocephalic and Yes atraumatic Ears: hearing grossly normal bilaterally, external ears normal, TM's normal bilaterally and EAC's normal General nose exam: Normal external nose present, Normal nares present, No nasal polyps present, Normal nasal mucous membranes and turbinates present, Normal septum present and No nasal discharge present Face and sinus: Yes normal facial exam, Yes sinuses nontender and Yes face symmetric Mouth: Normal oral and palatal mucosa present, lip normal and tongue normal Throat: Yes posterior oropharynx normal, No peritonsillar mass, No postnasal drainage, No uvular edema and No cobblestoning Eyes General: appearance normal, both eyes and all related structures Neck Neck: Yes normal visual inspection, Yes no lymphadenopathy, Yes trachea midline, Yes supple and No anterior neck swelling Resp Effort & Inspection: normal respiratory effort Auscultation: clear to auscultation bilaterally, no crackles, no rales, no rhonchi, no wheezes, lung sounds not diminished and No rub present Cardio Palpation: normal PMI Rate: regular rate Rhythm: regular rhythm Heart sounds: S1 normal heart sound present and S2 normal heart sound present Back/Spine/Pelvis Cervical Spine: pain with cervical ROM, cervical spasm and cervical ROM abnormal Skin Other: Good color, warm and dry Neuro General: oriented to person Psych Appearance: grossly normal Mental Status: mental status grossly normal Speech and movement: Normal speech and movement present Affect: normal affect Attitude: cooperative Thought process: Normal thought process present Insight: Good insight present (Psych) Judgement: Good judgement present (Psych) Assessment & Plan Assessment & Plan (1) Cervicalgia: Code(s): M54.2 - Cervicalgia Plan Patient is a 63-year-old female who comes to the walk-in clinic complaining left side neck pain. Twelve lead EKG done to rule out atypical cardiac symptoms, nondiagnostic for ACS but she does not have any other associated symptoms. Plain film x-ray today does show multilevel degenerative changes with obvious for mental stenosis of the upper and mid C-spine. This would be consistent with her having stiffness and decreased range of motion of her head and neck. There was no acute trauma reported. We discussed doing heating and gentle stretching, as well as continuing [id number] anti-inflammatories. I also wrote her for a course of Flexeril. She should follow up with PCP to discuss considering physical therapy or physiatry or other specialist referral if symptoms persist despite this, or shingles to the emergency department with worrisome symptoms. Orders: Orders AMB EKG-In Office 03/05/24 M54.2 - Cervicalgia Medications: New cyclobenzaprine Can cause sedation, so do not drive or do safety sensitive work while taking 5 mg PO TID 20 tabs 0RF muscle spasm Coding Level of Care Code Est Pt Level 4 (27862) Diagnoses Cervicalgia M54.2
== END 2024-03-05 10:45 | disposition home or self-care (01) ==
PROVIDERS: PCP Family Medicine; Visit Provider Physician Assistant Medical
DX: M54.2 Cervicalgia (principal)
CPT/HCPCS: 99214

== ENCOUNTER 2024-03-05 10:06 | Outpatient (REF) | payer OTHER, SELFPAY ==
--- NOTE | ~2024-03-05 | XR_ITS ---
EXAMINATION: XR CERVICAL SPINE CLINICAL INFORMATION: Cervicalgia COMPARISON: None available. TECHNIQUE: 5 views of the cervical spine including bilateral oblique views. FINDINGS: The cervical spine maintains normal alignment. C7 is not well evaluated on this exam. There is multilevel loss of intervertebral disc space with endplate degenerative changes. Vertebral body heights are maintained. There is multilevel bilateral mild foraminal stenosis of the upper and mid cervical spine. The paravertebral soft tissues are unremarkable. XR/XR cervical spine 5V IMPRESSION: Mild degenerative disease of the cervical spine.
== END 2024-03-05 10:07 | disposition home or self-care (01) ==
LOC: HO.HMGCX 10:06
PROVIDERS: PCP Family Medicine; Visit Provider Physician Assistant Medical
DX: M54.2 Cervicalgia (principal)
CPT/HCPCS: 72050

== ENCOUNTER → 2024-03-22 13:42 | Outpatient (REF) | payer OTHER, SELFPAY ==
--- NOTE | 2024-03-22 13:45 | CA_ITS ---
Transthoracic Echocardiogram Patient (Last, First, Middle): Cheryl Samson I Gender: Female Date of : 1960 Age: 63 Procedure Date: 03/22/2024 Procedure Type: Transthoracic Echocardiogram Location: OP Height: 152.4 cm Weight: 88.45 kg BSA: 1.85 m2 Heart Rate: bpm BP: 128 / 82 mmHg Wood Casket Maker: TO Referring MD: Lorene Lugo DO Chemical Process Project Engineer: Salvatore Carolina MD Symptoms: MITRAL VALVE INSUFFICIENCY Study Quality: Fair/Contrast ECG Rhythm: Sinus Conclusions: - 1. Low normal LV ejection fraction 50-55% 2. Mild mitral regurgitation 3. Mildly dilated ascending aorta at 3.7 cm Findings Procedure Information Contrast agent, definity, is being given per protocol without apparent complications. Left Ventricle Normal left ventricular cavity size. There is normal left ventricular wall thickness. The left ventricular systolic function is low normal. The visually estimated ejection fraction is between 50-55%. Spectral Doppler is indicative of a normal filling pattern. Right Ventricle Normal right ventricular cavity size and systolic function. Atria The left atrium is normal in size. Interatrial shunt cannot be excluded. The right atrium was not well visualized. Aortic Valve Normal aortic valve structure and function. There is no aortic valve stenosis. There is no aortic valve regurgitation. Mitral Valve Normal mitral valve structure and function. There is mild mitral valve regurgitation. There is no mitral valve stenosis. Pulmonic Valve The pulmonic valve is likely normal. There is trace pulmonic valve regurgitation. Tricuspid Valve Likely normal tricuspid valve structure and function. Tricuspid regurgitation envelope is inadequate for calculation of right ventricular systolic pressure. Normal right atrial pressure. Great Vessels The aorta was not well visualized. The pulmonary artery was not well visualized. There is mild dilatation of the ascending aorta measuring 3.70 cm. Venous The inferior vena cava is normal in size and collapses greater than 50% with inspiration. Pericardium/Pleural There is no evidence of pericardial effusion. Prior Study Comparison Changes noted compared to prior study dated: 04/29/2023. LV systolic function is marginally lower at 50-55% Measurements 2D Linear Measurements IVSd: 0.94 0.6-0.9/0.6-1.0 cm LVIDd: 4.42 3.9-5.3/4.2-5.9 cm LVIDd Index: 2.39 2.4-3.2/2.2-3.1 cm/m2 LVIDs: 3.07 2.0-3.6 cm LVPWd: 0.88 0.7-1.1 cm LA Diam: 3.50 2.7-3.8/3.0-4.0 cm LAIDs Index: 1.89 1.5-2.3 cm/m2 LV Mass: 162.64 67-162/88-224 g LV Mass Index: 87.91 43-95/49-115 g/m2 LVOT Diam: 2.00 3.0+(-)1.3 cm 2D Systolic Function EF 4C: 53.00 >55% EF 2C: 53.00 >55% EF BiP: 52.30 >55% Mitral Valve MV Pk E: 0.66 MV PK A: 0.54 MV Decel Time: 157.00 E/A: 1.20 E'Lateral: 8.38 E'Medial: 4.57 E/E' Med: 14.40 E/E' Lat: 7.90 PHT: 46.00 MVA PHT: 4.78 Decel Converse: 4.21 Aortic Valve AoV Pk Jared: 1.23 AoV Mn Jared: 0.83 AoV VTI: 0.24 AoV Pk Grad: 6.00 Aov Mn Grad: 3.00 KALEN Cont.VTI: 2.78 LVOT LVOT Pk Jared: 0.93 LVOT Mn Jared: 0.58 LVOT VTI: 0.21 LVOT Pk Grad: 3.00 LVOT Mn Grad: 2.00 LVOT Diam: 2.00 LVOT Area: 3.14 Diastolic Function MV Pk E: 0.66 MV Pk A: 0.54 E/A: 1.20 E'Medial: 4.57 E/E' Med: 14.40 E' Laterial: 8.38 E/E' Lat: 7.90 Right Ventricle TAPSE (mm): 22.60 TVS' Jared: 13.20 Tricuspid Valve RA Press: 3.00 Great Vessels Aorta Sinus of Valsalva: 2.75 2.0-3.5 cm Ao Asc: 3.70 2.1-3.4 cm Ao Arch: 2.80 Updated in Other Vendor System with Status of Final Salvatore Carolina MD electronically signed on 03/22/2024 4:24:41 PM with status of Final
== END ==
LOC: HO.CARD 13:42
PROVIDERS: PCP Family Medicine; Visit Provider Family Medicine
DX: I34.0 Nonrheumatic mitral (valve) insufficiency (principal)
CPT/HCPCS: 93306; Q9957

== ENCOUNTER → 2024-03-22 13:45 | Outpatient (BNV) | payer OTHER, SELFPAY | PROVIDERS: PCP Family Medicine; Visit Provider Internal Medicine Cardiovascular Disease | DX: I34.0 Nonrheumatic mitral (valve) insufficiency (principal) | CPT/HCPCS: 93306 ==

== ENCOUNTER 2024-04-01 08:25 | Outpatient (AMB) | payer OTHER, SELFPAY ==
[2024-04-01 08:28] VITALS: BP 128/86; PULSE 89; TEMP 37; O2SAT 96; BMI 38.1
--- NOTE | 2024-04-01 08:28 | AM.OFFWIN_ITS ---
Intake Vital Signs 04/01/24 08:28 Height 5 ft Weight 195 lb BMI 38.1 BP 128/86 Blood Pressure Location Lt brachial Position Sitting Pulse 89 Pulse Source Pulse Oximeter Temp 98.6 F Temp Source Oral Pulse Oximetry (%) 96 Oxygen Delivery Method Room Air Intake Visit Reasons: EP ?Pinched Nerve/?UTI Intake Note: Pt presents to the office today for c/o questioning pinched nerve/UTI. Pt states this started a few weeks ago. She states right lower back is painful when she bends down or is walking. She denies any injury to her back. Pt denies any UTI symptoms at this time. Patient Tobacco Use Status: Never used Tobacco Allergies ibuprofen [From Motrin] Allergy (Mild, Verified 04/01/24 08:29) Rash HPI EP ?Pinched Nerve/?UTI HPI Details This is a 63 year old female patient who presents today with a 2-3 week history of right lower back/buttocks pain. She is unsure if this is related to a UTI. Denies any dysuria, frequency, urgency of urination. No fever or chills. She reports pain is aching and throbbing, and will sometimes radiate down the back of her right leg. Denies any radiation down entire leg; denies any weakness/numbness/paresthesias. Denies any inciting event or trauma to area. Pain is worse with standing/walking and somewhat improved with rest. 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 Review of Systems Const All systems reviewed & are unremarkable except as noted in HPI and below Physical Exam Vital Signs: BMI result Body Mass Index 38.1 Const General: cooperative and no acute distress Nutritional Appearance: obese Limitations: no limitations HEENT Head: Yes normal to inspection Resp Effort & Inspection: normal respiratory effort Auscultation: clear to auscultation bilaterally Cardio Rate: regular rate Rhythm: regular rhythm General: Yes no CVA tenderness Back/Spine/Pelvis Back: no CVA tenderness Thoracic/Lumbar Spine: thoracic and lumbar spine normal to inspection, thoraco- lumbar ROM normal and straight leg raise negative bilaterally Sacroiliac joints: on the right tender to palpation, by compression of iliac crest and by passive hyperextension of lower ext Skin General skin exam: no rashes or lesions noted Neuro General: gait normal and deep tendon reflexes 2+ bilaterally Motor exam (neuro): 5/5 motor strength present throughout Extrem General: Yes capillary refill normal and Yes no clubbing, cyanosis or edema Psych Appearance: grossly normal Mental Status: mental status grossly normal Speech and movement: Normal speech and movement present Results AMB Urinalysis, Automated UA Leukoctes 70 Crispin/uL Last Edit by Kaur Banuelos CMA on 04/01/24 08:38 UA Nitrite Negative Last Edit by Kaur Banuelos CMA on 04/01/24 08:38 UA Urobilinogen 0.2 mg/dL Last Edit by Kaur Banuelos CMA on 04/01/24 08:38 UA Protein 0 mg/dL Last Edit by Kaur Banuelos CMA on 04/01/24 08:38 UA pH 6.5 Last Edit by Kaur Banuelos CMA on 04/01/24 08:38 UA Blood 0 Norman/uL Last Edit by Kaur Banuelos CMA on 04/01/24 08:38 UA Specific [place] 1.015 Last Edit by Kaur Banuelos CMA on 04/01/24 08:38 UA Ketone Negative Last Edit by Kaur Banuelos CMA on 04/01/24 08:38 UA Bilirubin 0 mg/dL Last Edit by Kaur Banuelos CMA on 04/01/24 08:38 UA Glucose 0 mg/dL Last Edit by Kaur Banuelos CMA on 04/01/24 08:38 Assessment & Plan Assessment & Plan (1) Inflammation of right sacroiliac joint: Code(s): M46.1 - Sacroiliitis, not elsewhere classified Plan: Patient's exam consistent with right SIJ inflammation. We discussed options for treatment. She cannot take NSAIDs however can take Tylenol, which I recommended she take prn for this pain. I am also going to start her on a short course of Baclofen, which she has done well on in the past. We reviewed indications, use, possible s/e of this. I offered her referral to physical therapy, however she declined at this time. We reviewed in the office some gentle stretches she can do for the SIJ. I will also obtain XR of the SIJ as she may be interested in interventional therapy/injections at the Pain Management office should this persist. She will f/u with PCP as needed if symptoms persist despite time and conservative measures. She agrees to plan. Orders: Orders AMB Urinalysis Automated Today Z13.9 - Encounter for screening, unspecified Medications: New baclofen 5 mg PO BID 7 days 14 tabs 0RF M46.1 - Sacroiliitis, not elsewhere classified Coding Level of Care Code Est Pt Level 4 (42381) Diagnoses Inflammation of right sacroiliac joint M46.1
== END 2024-04-01 09:06 | disposition home or self-care (01) ==
PROVIDERS: PCP Family Medicine; Visit Provider Nurse Practitioner Family
DX: M46.1 Sacroiliitis, not elsewhere classified (principal)
CPT/HCPCS: 81003; 99214

== ENCOUNTER 2024-04-01 08:58 | Outpatient (REF) | payer OTHER, SELFPAY ==
--- NOTE | ~2024-04-01 | XR_ITS ---
EXAMINATION: XR SACROILIAC JOINTS CLINICAL INFORMATION: Right SIJ dysfunction. COMPARISON: No similar priors. TECHNIQUE: 3 views of the sacroiliac joints FINDINGS: Mild asymmetric widening of the lower third of the right SI joint on the frontal view. On the oblique views both SI joints appear quite symmetric. No evidence of fractures or subluxation. No significant soft tissue abnormality. XR/XR sacroiliac joint min 3V IMPRESSION: Nonspecific mild asymmetric widening/lucency of the lower third of the right SI joint on the frontal view, consider further evaluation with CT of the pelvis as clinically warranted.
== END 2024-04-01 08:59 | disposition home or self-care (01) ==
LOC: HO.HMGCX 08:58
PROVIDERS: PCP Family Medicine; Visit Provider Nurse Practitioner Family
DX: M46.1 Sacroiliitis, not elsewhere classified (principal)
CPT/HCPCS: 72202

== ENCOUNTER 2024-04-22 07:25 | Day surgery (SDC) | payer OTHER, SELFPAY ==
[2024-01-29 13:45] VITALS: BMI 38.3
--- NOTE | 2024-01-29 15:49 | HO.ANESPROP2 ---
HPI - Anesthesia Eval Consult details Narrative: 63yo F for Colonoscopy, 02/23/24 Recent walk-in clinic visit for palps. EKG and exam reassuring. Anesthesia Pre-Procedure Meds Is the patient on any of the following meds?: Any other SGL-1 drugs or drugs that delay gastric emptying (Jardiance) PMFSH Active Problems Active Problems: All Active Problems (Updated 01/29/24 @ 13:55 by Faith Del Real, BROWN) Palpitations (Acute) Upper respiratory infection with cough and congestion (Acute) Upper respiratory tract infection (Acute) Right flank pain (Acute) Urinary tract infection (Acute) Foul smelling urine (Acute) Vaginal itching (Acute) Metatarsophalangeal joint sprain (Acute) De Quervain's tenosynovitis, right (Acute) Low back pain (Acute) Patellofemoral syndrome of left knee (Acute) Viral illness (Acute) GERD (gastroesophageal reflux disease) (Acute) Chronic cough (Acute) Contusion (Acute) Somatic dysfunction of right sacroiliac joint (Acute) Finger pain, left (Acute) Pharyngitis (Acute) Knee injury (Acute) Bacterial vaginosis (Acute) Urinary tract infection (Acute) Serous otitis media (Acute) Wrist pain, right (Acute) Past Medical History Medical History (Updated 01/29/24 @ 13:55 by Faith Del Real RN) History of palpitations Mitral valve regurgitation Hyperlipidemia Nephrolithiasis Wrist pain, right Diabetes Surgical History Surgical History (Updated 01/29/24 @ 13:48 by Faith Del Real RN) Hx of colonoscopy History of esophagogastroduodenoscopy (EGD) History of tubal ligation Social History Social History Patient Tobacco Use Status: Never used Tobacco Current occupational status: disabled 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 Meds Allergies Allergy/AdvReac Type Severity Reaction Status Date / Time ibuprofen [From Motrin] Allergy Mild Rash Verified 02/13/24 09:45 Home Medications Medication Instructions Recorded Confirmed Last Taken Type aspirin 81 mg tablet,delayed 81 mg PO DAILY 03/15/21 01/12/23 Unknown History release atorvastatin 40 mg tablet 40 mg PO BEDTIME 03/15/21 01/12/23 Unknown History cholecalciferol (vitamin D3) 50 50 mcg PO DAILY 03/15/21 01/12/23 Unknown History mcg (2,000 unit) tablet docusate sodium 100 mg capsule 100 mg PO BID 03/15/21 01/12/23 Unknown History multivitamin-ferrous 0 tab PO 03/15/21 01/12/23 Unknown History fumarate-folic acid 18 mg-400 mcg tablet omeprazole 20 mg capsule,delayed 20 mg PO BID 03/15/21 01/12/23 Unknown History release sertraline 50 mg tablet 50 mg PO DAILY 03/15/21 01/12/23 Unknown History losartan 50 mg tablet 50 mg PO DAILY 03/21/22 01/12/23 Unknown History ascorbate calcium (vitamin C) 500 500 mg PO DAILY 05/22/22 01/12/23 Unknown History mg tablet blood sugar diagnostic (FreeStyle #10 ea 05/22/22 01/12/23 Unknown History Lite Strips) omega 0-pyw-pds-fish oil 100 cap PO DAILY 05/22/22 01/12/23 Unknown History mg-160 mg-1,000 mg capsule (Fish Oil) polyethylene glycol 3350 17 gram 17 g PO DAILY 09/20/22 01/12/23 Unknown History oral powder packet (Miralax) alcohol swabs 0 pad topical DAILY 12/09/22 01/12/23 Unknown History lancets 28 gauge (FreeStyle #100 ea 12/09/22 01/12/23 Unknown History Lancets) empagliflozin 10 mg tablet 10 mg PO DAILY 01/22/24 Unknown History (Jardiance) multivit with min-folic 1 tab PO QAM 01/22/24 Unknown History acid-lutein 0.4 mg-250 mcg tablet (Essential Woman 50 Plus) Exam Height,Weight and Vital Signs: Height 4 ft 11.5 in Weight 87.453 kg Pertinent Lab Results Pertinent Lab Results: Laboratory Tests 11/02/23 09:03 WBC 5.7 Hgb 12.1 Hct 38.4 Plt Count 215 Sodium 142 Potassium 4.5 Chloride 106 Carbon Dioxide 28 BUN 9 Creatinine 0.78 Narrative Narrative: EKG 12/2023 NSR @ 69 ECHO 2022 Conclusions: - 1. Technically limited study, IV access could not be obtained 2. Normal LV systolic function with LVEF of 55-60% with normal filling pattern 3. Mild mitral regurgitation 4. Upper limits normal ascending aortic size Assessment and Plan Assessment Anesthesia Assessment: Chart Reviewed
[2024-04-20 11:34] VITALS: BMI 38.1
--- NOTE | 2024-04-21 09:32 | HO.ANESPROP2 ---
Documented by User: Prisca Rebolledo NP 04/21/24 09:33 HPI - Anesthesia Eval Consult details Narrative: 63yo F for Colonoscopy Anesthesia Pre-Procedure Meds Is the patient on any of the following meds?: GLP1/DPP4 PMFSH Active Problems Active Problems: All Active Problems Palpitations (Acute) Upper respiratory infection with cough and congestion (Acute) Upper respiratory tract infection (Acute) Right flank pain (Acute) Urinary tract infection (Acute) Foul smelling urine (Acute) Vaginal itching (Acute) Metatarsophalangeal joint sprain (Acute) De Quervain's tenosynovitis, right (Acute) Low back pain (Acute) Patellofemoral syndrome of left knee (Acute) Viral illness (Acute) GERD (gastroesophageal reflux disease) (Acute) Chronic cough (Acute) Contusion (Acute) Somatic dysfunction of right sacroiliac joint (Acute) Finger pain, left (Acute) Pharyngitis (Acute) Knee injury (Acute) Bacterial vaginosis (Acute) Urinary tract infection (Acute) Serous otitis media (Acute) Wrist pain, right (Acute) Past Medical History Medical History (Updated 04/22/24 @ 07:44 by Carmelita Elder RN) GERD (gastroesophageal reflux disease) Arthritis HTN (hypertension) History of palpitations Mitral valve regurgitation Hyperlipidemia Nephrolithiasis Wrist pain, right Diabetes Surgical History Surgical History Hx of colonoscopy History of esophagogastroduodenoscopy (EGD) History of tubal ligation Social History Social History Patient Tobacco Use Status: Never used Tobacco Use of substances other than those prescribed or required for medical reasons: No Are you DNR?: No Advance Directives: No Advance Directives Information Provided: Yes Current occupational status: disabled 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 Meds Allergies Allergy/AdvReac Type Severity Reaction Status Date / Time ibuprofen [From Motrin] Allergy Mild Rash Verified 04/22/24 07:45 Home Medications ?Medication ?Instructions ?Recorded ?Confirmed ?Last Taken ?Type aspirin 81 mg tablet,delayed 81 mg PO DAILY 03/15/21 04/20/24 Unknown History release atorvastatin 40 mg tablet 40 mg PO BEDTIME 03/15/21 04/20/24 Unknown History cholecalciferol (vitamin D3) 50 50 mcg PO DAILY 03/15/21 04/20/24 Unknown History mcg (2,000 unit) tablet docusate sodium 100 mg capsule 100 mg PO DAILY 03/15/21 04/20/24 Unknown History multivitamin-ferrous 1 tab PO DAILY 03/15/21 04/20/24 Unknown History fumarate-folic acid 18 mg-400 mcg tablet omeprazole 20 mg capsule,delayed 20 mg PO DAILY 03/15/21 04/20/24 Unknown History release sertraline 50 mg tablet 50 mg PO DAILY 03/15/21 04/20/24 Unknown History losartan 50 mg tablet 50 mg PO DAILY 03/21/22 04/20/24 Unknown History blood sugar diagnostic (FreeStyle #10 ea 05/22/22 01/12/23 Unknown History Lite Strips) omega 6-guq-xkb-fish oil 100 1 cap PO DAILY 05/22/22 04/20/24 Unknown History mg-160 mg-1,000 mg capsule (Fish Oil) lancets 28 gauge (FreeStyle #100 ea 12/09/22 01/12/23 Unknown History Lancets) dulaglutide 0.75 mg/0.5 mL 0.75 mg subcut QWEEK 04/01/24 04/20/24 04/13/24 History subcutaneous pen injector (Trulicity) cetirizine 10 mg tablet 10 mg PO DAILY 04/20/24 04/20/24 Unknown History Exam Height,Weight and Vital Signs: Height 4 ft 11.5 in Weight 87.09 kg Narrative Narrative: ECHO 02/2024 Conclusions: - 1. Low normal LV ejection fraction 50-55% 2. Mild mitral regurgitation 3. Mildly dilated ascending aorta at 3.7 cm Assessment and Plan Assessment Anesthesia Assessment: Chart Reviewed Documented by User: Kishan Wyatt MD 04/22/24 08:09 [facility] Past Medical History Medical History (Updated 04/22/24 @ 07:44 by Carmelita Elder RN) GERD (gastroesophageal reflux disease) Arthritis HTN (hypertension) History of palpitations Mitral valve regurgitation Hyperlipidemia Nephrolithiasis Wrist pain, right Diabetes Family History Family history of problems with anesthesia: No Surgical History Surgical History Hx of colonoscopy History of esophagogastroduodenoscopy (EGD) History of tubal ligation History of Problems with Anesthesia: No Social History Social History Patient Tobacco Use Status: Never used Tobacco Use of substances other than those prescribed or required for medical reasons: No Are you DNR?: No Advance Directives: No Advance Directives Information Provided: Yes Current occupational status: disabled 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 Meds Allergies Allergy/AdvReac Type Severity Reaction Status Date / Time ibuprofen [From Motrin] Allergy Mild Rash Verified 04/22/24 07:45 Home Medications ?Medication ?Instructions ?Recorded ?Confirmed ?Last Taken ?Type aspirin 81 mg tablet,delayed 81 mg PO DAILY 03/15/21 04/20/24 Unknown History release atorvastatin 40 mg tablet 40 mg PO BEDTIME 03/15/21 04/20/24 Unknown History cholecalciferol (vitamin D3) 50 50 mcg PO DAILY 03/15/21 04/20/24 Unknown History mcg (2,000 unit) tablet docusate sodium 100 mg capsule 100 mg PO DAILY 03/15/21 04/20/24 Unknown History multivitamin-ferrous 1 tab PO DAILY 03/15/21 04/20/24 Unknown History fumarate-folic acid 18 mg-400 mcg tablet omeprazole 20 mg capsule,delayed 20 mg PO DAILY 03/15/21 04/20/24 Unknown History release sertraline 50 mg tablet 50 mg PO DAILY 03/15/21 04/20/24 Unknown History losartan 50 mg tablet 50 mg PO DAILY 03/21/22 04/20/24 Unknown History blood sugar diagnostic (FreeStyle #10 ea 05/22/22 01/12/23 Unknown History Lite Strips) omega 5-maz-qxw-fish oil 100 1 cap PO DAILY 05/22/22 04/20/24 Unknown History mg-160 mg-1,000 mg capsule (Fish Oil) lancets 28 gauge (FreeStyle #100 ea 12/09/22 01/12/23 Unknown History Lancets) dulaglutide 0.75 mg/0.5 mL 0.75 mg subcut QWEEK 04/01/24 04/20/24 04/13/24 History subcutaneous pen injector (Trulicity) cetirizine 10 mg tablet 10 mg PO DAILY 04/20/24 04/20/24 Unknown History Exam Airway Mallampati Class: III TM Dist: <=3cm Neck ROM: Full Loose/Missing/Broken Teeth: No Heart: rrr Lungs: cta Assessment and Plan Assessment Anesthesia Assessment: Anesthesia Plan Discussed Final Anesthetic Review Family History of Problems with Anesthesia: No History of Problems with Anesthesia: No NPO: Yes ASA Class: III Final Preanesthetic Review: No Changes in Pt Med Stat, Meds/Allgs Chart Reviewed, Consent Obtained/Reviewed and Anes Risks/Benef Reviewed Patient Risk: Intermediate Procedure Risk: Intermediate Anesthetic Plan Anesthetic Plan: MAC: Disposition: Standard PACU
[2024-04-22 07:47] VITALS: BMI 38.1
[2024-04-22 07:55] VITALS: BP 171/80; PULSE 84; RESP 16; TEMP 36.6; O2SAT 97
[2024-04-22] MEDS: Lactated Ringers 1,000 ML 100 ML IVCONT (08:10)
[2024-04-22 08:15] LABS: Glucose, Whole Blood 84 mg/dL (60-115)
--- NOTE | 2024-04-22 08:54 | MHC.SHP ---
Pre-Procedural Eval Section A - 24 Hr Update-Section A only Date of Service: 04/22/24 Section B - Complete if H&P > 30 days Chief Complaint: Constipation, unspecified Details of Present Illness: see H&P no changes Relevant Family History (Specify if Yes): No Relevant Social History: None Present Medications: see Short Stay Collaborative assessment Medical History: No relevant PMH History of Previous Operations: No relevant previous surgery Allergies: Allergies Allergy/AdvReac Type Severity Reaction Status Date / Time ibuprofen [From Motrin] Allergy Mild Rash Verified 04/22/24 07:45 Review of Systems Sugical H&P ROS: Negative: Constitution, Cardiovascular, Respiratory, Neurological, Psychiatric, Hem-Onc, Allergic/Immunologic, Gastrointestinal, Genitourinary, Musculoskeletal, Integumentary, Endocrine and Eyes/Ears/Nose/Throat Exam Surgical H&P Exam: Normal: HEENT, Normal: Heart, Normal: Lungs, Normal: Extremities, Normal: Abdomen, Normal: Skin and Normal: Neurological Plan Diagnosis/Plan: Unchanged I have reviewed the history and physical and performed a pertinent physical examination on my patient. No changes have occurred unless specified. Time Spent With Patient Time: Total time managing care of this patient today ____ minutes.
[2024-04-22 09:31] VITALS: BP 111/55; PULSE 77; RESP 16; TEMP 36.2; O2SAT 97
[2024-04-22 09:46] VITALS: BP 129/73; PULSE 86; RESP 16; TEMP 36.2; O2SAT 99
--- NOTE | 2024-04-22 10:27 | OP_ITS ---
DATE OF SERVICE: 04/22/2024 SURGEON: Lauro Paredes MD INDICATIONS: Constipation and colon cancer screening. PREOPERATIVE DIAGNOSIS: POSTOPERATIVE DIAGNOSIS: PROCEDURE PERFORMED: Colonoscopy to the terminal ileum with snare polypectomy and biopsy. ESTIMATED BLOOD LOSS: COMPLICATIONS: ANESTHESIA: Monitored anesthesia care. ASSISTANTS: SPECIMENS: DESCRIPTION OF PROCEDURE: A history and physical was performed. The risks and benefits of the procedure were explained to the patient and informed consent was obtained. The patient was placed in the left lateral decubitus position. A digital rectal exam was performed and was found to be normal. The Olympus pediatric video colonoscope was introduced into the rectum and advanced to the cecum. The cecum was identified by transillumination, palpation, and identification of ileocecal valve. Examination was performed and the scope was removed. She tolerated the procedure well and was returned to the recovery area in stable condition. FINDINGS: The terminal ileum was examined and appeared normal. The visualized colonic mucosa was normal. The quality of the prep was good. Two polyps were identified. At 50 cm, a 7 mm polyp was removed with a hot snare and recovered via suction. At 45 cm, a less than 5 mm polyp was removed with biopsy forceps and no other polyps were identified. Retroflexed examination showed small internal hemorrhoids. IMPRESSION: Colon polyps. RECOMMENDATION: Follow up the biopsy results. MD DYAN Vásquez/KIM / [id number]
== END 2024-04-22 10:08 | disposition home or self-care (01) ==
PROVIDERS: PCP Family Medicine; Visit Provider Internal Medicine Gastroenterology
PROC: 0DJD8ZZ Inspection of Lower Intestinal Tract, Via Natural or Artificial Opening Endoscopic (ICD-10-PCS; CPT 45378; principal; 2024-04-22 09:10)
DX: Z12.11 Encounter for screening for malignant neoplasm of colon (principal); D12.5 Benign neoplasm of sigmoid colon; K64.8 Other hemorrhoids; K59.00 Constipation, unspecified; E11.9 Type 2 diabetes mellitus without complications; I10 Essential (primary) hypertension; E78.5 Hyperlipidemia, unspecified; Z79.82 Long term (current) use of aspirin; Z79.02 Long term (current) use of antithrombotics/antiplatelets; Z79.85 Long-term (current) use of injectable non-insulin antidiabetic drugs; Z79.899 Other long term (current) drug therapy
CPT/HCPCS: 45385; 45380; 82947; 88305; J2704

== ENCOUNTER 2024-05-05 08:29 | Outpatient (REF) | payer OTHER, SELFPAY ==
--- NOTE | ~2024-05-05 | XR_ITS ---
EXAMINATION: XR HAND, RIGHT CLINICAL INFORMATION: Pain, arthritis middle finger? COMPARISON: 08/12/2022 TECHNIQUE: PA, lateral, and oblique views of the right hand. FINDINGS: Minimal tiny calcification distal to the ulnar styloid stable dating back to 2009. Bones are diffusely demineralized. Moderate degenerative changes in the first carpometacarpal joint with joint space narrowing and hypertrophic change. Mild degenerative changes in multiple IP joints. No displaced fracture of the third digit appreciated. XR/XR hand RT min 3V IMPRESSION: 1. Moderate degenerative changes first carpometacarpal joint. 2. Mild degenerative changes multiple IP joints. 3. No displaced fracture of the third digit appreciated. Recommend follow-up imaging in 10-14 days if fracture is suspected.
== END 2024-05-05 08:30 | disposition home or self-care (01) ==
LOC: HO.HOSX 08:29
PROVIDERS: PCP Family Medicine; Visit Provider Physical Medicine & Rehabilitation
DX: M65.331 Trigger finger, right middle finger (principal); M54.50 Low back pain, unspecified; Z86.69 Personal history of other diseases of the nervous system and sense organs
CPT/HCPCS: 73130; 99202

== ENCOUNTER 2024-05-05 08:29 | Outpatient (AMB) | payer OTHER, SELFPAY ==
--- NOTE | 2024-05-05 08:31 | MHC.OFFVIS ---
Vital Signs 05/05/24 08:37 Height 5 ft Intake Visit Reasons: Newprob-Lower right side back pain Intake Note: This is a 63 year old female who presents for right hand middle finger pain. She reports the pain in her finger started a few weeks ago. She has pain with bending her finger. Allergies ibuprofen [From Motrin] Allergy (Mild, Verified 05/05/24 08:36) Rash Medication List - Last Reconciled 05/05/24 by Carmelita Lopes RN aspirin 81 mg PO DAILY atorvastatin 40 mg PO BEDTIME blood sugar diagnostic (FreeStyle Lite Strips) As directed cetirizine 10 mg PO DAILY cholecalciferol (vitamin D3) 50 mcg PO DAILY docusate sodium 100 mg PO DAILY dulaglutide (Trulicity) 0.75 mg subcut QWEEK lancets (FreeStyle Lancets) As directed losartan 50 mg PO DAILY cjlveadpsgon-efds-ggodn acid 18-400 mg-mcg 1 tab PO DAILY omega 1-jsj-kyp-fish oil 100-160-1,000 mg (Fish Oil) 1 cap PO DAILY omeprazole 20 mg PO DAILY sertraline 50 mg PO DAILY HPI Comments Details: 2 weeks ago, started having problems with right middle finger, gets stuck and painful on palm side. Denies numbness. Drops things or bothers her when she elena her hair. No inciting injuries. Says she has history of CTS, based on EMG. I don't have the EMG record for review. She has a scar which may have been de quervain surgery. 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 MSK: Minimal tenderness right 3rd IP joints and MCP joint. No joint effusion noted. No deformity noted. No intrinsic hand weakness noted. No atrophy noted. Raad test negative. Carpal compression test negative. Tinel sign negative. No actual triggering, no nodule palpable. Strength is 5/5 in all muscle groups tested. No increased tone noted. Neurological: Neurologic examination of the upper and lower extremities was nonfocal with intact sensation, muscle stretch reflexes and without focal motor deficits . Amaya?s negative bilaterally. Babinski was down going bilaterally. Clonus was negative. Results Reviewed Results Reviewed: I independently reviewed the results of the following: Cervical x-ray 03/05/2024 showed spondylosis. Ordering Physician: Carleen Armenta Date of Service: 03/05/24 Procedure(s): XR cervical spine 5V Accession Number(s): [id number] cc: Lorene Lugo DO; Carleen Armenta~ EXAMINATION: XR CERVICAL SPINE CLINICAL INFORMATION: Cervicalgia COMPARISON: None available. TECHNIQUE: 5 views of the cervical spine including bilateral oblique views. FINDINGS: The cervical spine maintains normal alignment. C7 is not well evaluated on this exam. There is multilevel loss of intervertebral disc space with endplate degenerative changes. Vertebral body heights are maintained. There is multilevel bilateral mild foraminal stenosis of the upper and mid cervical spine. The paravertebral soft tissues are unremarkable. XR/XR cervical spine 5V IMPRESSION: Mild degenerative disease of the cervical spine. I reviewed records from the following: PCP saw her 04/01/24 for right-sided back pain Occupational medicine saw her 03/05/2024 for left-sided neck pain Assessment & Plan Assessment & Plan (1) Trigger finger, right middle finger: Code(s): M65.331 - Trigger finger, right middle finger Category: Medical (2) History of carpal tunnel syndrome: Code(s): Z86.69 - Personal history of other diseases of the nervous system and sense organs Category: Medical Plan Patient with history of multiple pain complaints, coming today for pain on right middle finger. Possibly beginning of right trigger finger, 3rd digit. We will put her on a finger splint. We will do x-rays today to rule out DJD. She has history of Carpal Tunnel Syndrome, we will schedule EMG to confirm. Assessment and plan discussed with patient, and patient was agreeable. All questions were answered thoroughly. Traci Caballero MD, TIM Board Certified, [place] [employer] Physical Medicine and Rehabilitation (ABPMR) Board Certified, [place] Board of Electrodiagnostic Medicine (ABEM) Orders: Orders XR hand RT min 3V Today M65.331 - Trigger finger, right middle finger, M79.643 - Pain in unspecified hand, Z86.69 - Personal history of other diseases of the nervous system and sense organs NE nerve conduction velocity Today M65.331 - Trigger finger, right middle finger, Z86.69 - Personal history of other diseases of the nervous system and sense organs NE electromyogram (EMG) Today M65.331 - Trigger finger, right middle finger, Z86.69 - Personal history of other diseases of the nervous system and sense organs Coding Level of Care Code New Pt Level 4 (81179) Diagnoses Trigger finger, right middle finger M65.331 History of carpal tunnel syndrome Z86.69
== END 2024-05-05 10:22 | disposition home or self-care (01) ==
PROVIDERS: PCP Family Medicine; Visit Provider Physical Medicine & Rehabilitation
DX: M65.331 Trigger finger, right middle finger (principal); Z86.69 Personal history of other diseases of the nervous system and sense organs
CPT/HCPCS: 99203

== ENCOUNTER 2024-05-13 14:06 | Outpatient (REF) | payer OTHER, SELFPAY ==
--- NOTE | 2024-05-13 14:10 | EMG_ITS ---
Chief complaint: Right hand numbness, triggering of the middle finger Reason for referral: Evaluate for Carpal Tunnel Syndrome Procedure done: Right upper extremity NCS/EMG Precautions and/or limitations: None The limb temperature was monitored continuously and remained between 32-36 degrees C during the performance of the NCS. Nerve Conduction Studies Anti Sensory Summary Table ?Stim Site NR Onset (ms) Norm Onset (ms) Peak (ms) Norm Peak (ms) O-P Amp (?V) Norm O-P Amp Site1 Site2 Delta-0 (ms) Dist (cm) Jared (m/s) Norm Jared (m/s) Right Median Anti Sensory (2nd Digit) Wrist ? 3.6 4.4 <3.6 13.1 >10 Wrist 2nd Digit 3.6 14.0 39 Right Radial Anti Sensory (Thumb) Forearm ? 1.6 2.1 <3.1 2.9 Forearm Thumb 1.6 0.0 Right Ulnar Anti Sensory (5th Digit) Wrist ? 0.9 2.9 <3.7 18.2 >15.0 Wrist 5th Digit 0.9 14.0 156 Motor Summary Table ?Stim Site NR Onset (ms) Norm Onset (ms) O-P Amp (mV) Norm O-P Amp iAmp (mV) Amp (1st) (%) Site1 Site2 Delta-0 (ms) Dist (cm) Jared (m/s) Norm Jared (m/s) Right Median Motor (Abd Poll Brev) Wrist ? 4.9 <3.9 8.9 >4.5 10.4 100.0 Elbow Wrist 3.4 19.0 56 >45 Elbow ? 8.3 8.5 9.9 95.5 Right Ulnar Motor (Abd Dig Minimi) Wrist ? 2.7 <3.0 8.2 >5 9.7 100.0 B Elbow Wrist 2.9 17.0 59 >45 B Elbow ? 5.6 7.5 9.0 91.5 A Elbow B Elbow 1.6 10.0 62 >45 A Elbow ? 7.2 7.2 8.6 87.8 EMG ?Side Muscle Nerve Root Ins Act Fibs Psw Amp Dur Poly Recrt Int Pat Comment Right 1stDorInt Ulnar C8-T1 Nml Nml Nml Nml Nml 0 Nml Complete Right FlexCarRad Median C6-7 Nml Nml Nml Nml Nml 0 Nml Complete Right Biceps Musculocut C5-6 Nml Nml Nml Nml Nml 0 Nml Complete Right Triceps Radial C6-7-8 Nml Nml Nml Nml Nml 0 Nml Complete Right Deltoid Axillary C5-6 Nml Nml Nml Nml Nml 0 Nml Complete FINDINGS: Right median motor nerve showed prolonged distal latency, normal amplitude and normal conduction velocity. Right median sensory nerve showed prolonged peak latency. All other nerves tested were within normal. Concentric needle EMG was performed in selected muscles of the right upper extremity. Study did not reveal signs of electric abnormalities as shown in the table above. IMPRESSION: 1. This is an abnormal study. 2. There is electrodiagnostic evidence for right moderate-severe median neuropathy at the wrist, consistent with carpal tunnel syndrome. 3. There is no electrodiagnostic evidence for ulnar neuropathy, brachial plexopathy, or cervical radiculopathy. CLINICAL COMMENT: Offered referral to Dr. Saavedra for consideration of surgery, patient to think about it. Thank you for your kind referral. Traci Caballero MD, TIM Board Certified, [place] [employer] and [employer] (ABPMR) Board Certified, [place] Board of Electrodiagnostic Medicine (ABEM) [facility] [id number] [facility]
== END 2024-05-13 14:07 | disposition home or self-care (01) ==
LOC: HO.NEURO 14:06
PROVIDERS: Visit Provider Physical Medicine & Rehabilitation
DX: M65.331 Trigger finger, right middle finger (principal); Z86.69 Personal history of other diseases of the nervous system and sense organs; R20.0 Anesthesia of skin
CPT/HCPCS: 95886; 95909

== ENCOUNTER → 2024-05-13 14:10 | Outpatient (BNV) | payer OTHER, SELFPAY | PROVIDERS: Visit Provider Physical Medicine & Rehabilitation | DX: G56.01 Carpal tunnel syndrome, right upper limb (principal) | CPT/HCPCS: 95886; 95909 ==

== ENCOUNTER 2024-06-15 10:11 | Outpatient (AMB) | payer OTHER, SELFPAY ==
--- NOTE | 2024-06-15 10:13 | A.OFFVIS_ITS ---
Vital Signs 06/15/24 10:16 Height 5 ft Weight 199 lb BMI 38.9 Intake Visit Reasons: OV Trigger finger, right middle finger Intake Note: Cheryl is a 63 year old female who presents today for a follow up of her right hand middle trigger finger and EMG to evaluate CTS. EMG done on 05/13/24. Patient has been compliant with finger splinting for the right middle finger sinc her last visit, she is interested in an injection today. Allergies ibuprofen [From Motrin] Allergy (Mild, Verified 06/15/24 10:16) Rash Medication List - Last Reconciled 06/15/24 by Traci Caballero MD aspirin 81 mg PO DAILY atorvastatin 40 mg PO BEDTIME blood sugar diagnostic (FreeStyle Lite Strips) As directed cetirizine 10 mg PO DAILY cholecalciferol (vitamin D3) 50 mcg PO DAILY docusate sodium 100 mg PO DAILY dulaglutide (Trulicity) 0.75 mg subcut QWEEK lancets (FreeStyle Lancets) As directed losartan 50 mg PO DAILY bhdnddazlqur-uchl-bwmkv acid 18-400 mg-mcg 1 tab PO DAILY omega 4-cns-vme-fish oil 100-160-1,000 mg (Fish Oil) 1 cap PO DAILY omeprazole 20 mg PO DAILY sertraline 50 mg PO DAILY HPI Comments Details: Patient initially seen for right middle finger getting stuck and painful on palm side. Drops things or bothers her when she elena her hair. No inciting injuries. We placed her on a finger splint. Continues to have locking. Would like to have injection today. Says she has history of CTS, based on EMG years ago. Repeated EMG which showed Carpal Tunnel Syndrome, report below. She has a scar which may have been de quervain surgery. 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 MSK: Minimal tenderness right 3rd IP joints and MCP joint. No joint effusion noted. No deformity noted. No intrinsic hand weakness noted. No atrophy noted. Raad test negative. Carpal compression test positive right. Triggering right 3rd digit with palpable nodule. Strength is 5/5 in all muscle groups tested. No increased tone noted. Neurological: Neurologic examination of the upper and lower extremities was nonfocal with intact sensation, muscle stretch reflexes and without focal motor deficits . Amaya?s negative bilaterally. Office Procedures Tendon Injection Tendon Injection Details: Risks and benefits discussed. Consent obtained. Patient places right hand palm up on table. Identified and marked area over the A1 timur of the flexor tendon sheath of the right 3rd digit. Area prepped in sterile manner. I then injected the flexor tendon sheath with a combination of 10mg Kenalog and 0.75mg 2% Lidocaine, using a 27 gauge 0.5 inch needle. Patient tolerated procedure well. Post injection instructions given. [id number] Tendon Sheath Injection All charges added?: Procedure code (CPT) selection complete Results Reviewed Results Reviewed: EMG done by me 05/13/2024 IMPRESSION: 1. This is an abnormal study. 2. There is electrodiagnostic evidence for right moderate-severe median neuropathy at the wrist, consistent with carpal tunnel syndrome. 3. There is no electrodiagnostic evidence for ulnar neuropathy, brachial plexopa thy, or cervical radiculopathy. Ordering Physician: Traci Bee Date of Service: 05/05/24 Procedure(s): XR hand RT min 3V Accession Number(s): [id number] cc: Lorene Lugo DO; Traci Bee~ EXAMINATION: XR HAND, RIGHT CLINICAL INFORMATION: Pain, arthritis middle finger? COMPARISON: 08/12/2022 TECHNIQUE: PA, lateral, and oblique views of the right hand. FINDINGS: Minimal tiny calcification distal to the ulnar styloid stable dating back to 2009. Bones are diffusely demineralized. Moderate degenerative changes in the first carpometacarpal joint with joint space narrowing and hypertrophic change. Mild degenerative changes in multiple IP joints. No displaced fracture of the third digit appreciated. XR/XR hand RT min 3V IMPRESSION: 1. Moderate degenerative changes first carpometacarpal joint. 2. Mild degenerative changes multiple IP joints. 3. No displaced fracture of the third digit appreciated. Recommend follow-up imaging in 10-14 days if fracture is suspected. Assessment & Plan Assessment & Plan (1) Carpal tunnel syndrome of right wrist: Code(s): G56.01 - Carpal tunnel syndrome, right upper limb Category: Medical (2) Trigger finger, right middle finger: Code(s): M65.331 - Trigger finger, right middle finger Category: Medical Plan 1. Carpal Tunnel Syndrome-patient needs to see Dr. Saavedra to discuss Carpal Tunnel Syndrome surgery. To be scheduled. 2. Patient would like to proceed with trigger finger injection. Advised no driving or heavy lifting today. Continue to wear finger splint. Watch blood sugars Carpal Tunnel Syndrome that can be elevated temporarily with steroid. Patient tolerated procedure well. Instructions given. No complications. Assessment and plan discussed with patient, and patient was agreeable. All questions were answered thoroughly. Traci Caballero MD, TIM Board Certified, [place] [employer] and [employer] (ABPMR) Board Certified, [place] [employer] Electro[employer] (ABEM) Orders: Orders AMB Tendon Injection Today M65.331 - Trigger finger, right middle finger Coding Level of Care Code Est Pt Level 3 (75088) Diagnoses Carpal tunnel syndrome of right wrist G56.01 Trigger finger, right middle finger M65.331 CPT Codes Tendon Injection - Tendon Injection 1: [id number] Tendon Sheath Injection ([id number])
[2024-06-15 10:16] VITALS: BMI 38.9
== END 2024-06-15 10:41 | disposition home or self-care (01) ==
PROVIDERS: Visit Provider Physical Medicine & Rehabilitation
DX: G56.01 Carpal tunnel syndrome, right upper limb (principal); M65.331 Trigger finger, right middle finger
CPT/HCPCS: 20550; 99213

== ENCOUNTER → 2024-06-15 10:11 | Outpatient (BNVA) | payer OTHER, SELFPAY | PROVIDERS: Visit Provider Physical Medicine & Rehabilitation | DX: G56.01 Carpal tunnel syndrome, right upper limb (principal); M65.331 Trigger finger, right middle finger | CPT/HCPCS: 20550; 99212; J3301 ==

== ENCOUNTER 2024-08-18 09:00 | Outpatient (AMB) | payer OTHER, SELFPAY ==
[2024-08-18 09:07] VITALS: BP 126/74; PULSE 76; TEMP 37.1; O2SAT 98; BMI 38.9
--- NOTE | 2024-08-18 09:07 | MHC.OFFWIV ---
Intake Vital Signs 08/18/24 09:07 Height 5 ft Weight 199 lb BMI 38.9 BP 126/74 Blood Pressure Location Lt brachial Position Sitting Pulse 76 Pulse Source Pulse Oximeter Temp 98.7 F Temp Source Oral Pulse Oximetry (%) 98 Oxygen Delivery Method Room Air Intake Visit Reasons: EP-Pelvic pain Intake Note: pt c/o pelvic pain. Started 4 days ago Patient Tobacco Use Status: Never used Tobacco Allergies ibuprofen [From Motrin] Allergy (Mild, Verified 08/18/24 09:10) Rash Do you need a note to return to daycare/school/sports/work: No HPI HPI Comments History of Present Illness Details Patient is a 63-year-old female complaining of pelvic pain. She states the pain started 4 days ago. She says she has some abnormal discharge but is unable to describe it. She states it does not burn when she urinates but her urine does not seem normal but again she is unable to describe it. She states she is sexually active with 1 partner, this is not a new partner. She states she is not concerned about sexually transmitted diseases. She states she does have a history of bacterial vaginosis and she thinks maybe it is that. She denies any low back pain, fevers, a change in her bowels or her urinary habits. 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 Review of Systems Const All systems reviewed & are unremarkable except as noted in HPI and below Physical Exam Vital Signs: Last Vital Signs Temp 98.7 F 08/18/24 09:07 Pulse 76 08/18/24 09:07 BP 126/74 08/18/24 09:07 Pulse Ox 98 08/18/24 09:07 Oxygen Delivery Method Room Air 08/18/24 09:07 BMI result Body Mass Index 38.9 Const General: cooperative, healthy appearing, comfortable and no acute distress Orientation/consciousness: patient oriented x3 HEENT Head: Yes normal to inspection Ears: hearing grossly normal bilaterally General nose exam: Normal external nose present Face and sinus: Yes normal facial exam Neck Neck: Yes normal visual inspection, Yes trachea midline and Yes supple Resp Effort & Inspection: normal respiratory effort and able to speak in complete sentences Skin General skin exam: no rashes or lesions noted Neuro General: patient oriented x3 Psych Appearance: grossly normal Speech and movement: Normal speech and movement present Attitude: cooperative Thought process: Normal thought process present Insight: Good insight present (Psych) Judgement: Good judgement present (Psych) Results AMB Urinalysis, Automated UA Leukoctes 15 Crispin/uL Last Edit by Agueda Cade CCM on 08/18/24 09:39 UA Nitrite Negative Last Edit by Agueda Cade [facility] on 08/18/24 09:39 UA Urobilinogen 0.2 mg/dL Last Edit by Agueda Cade [facility] on 08/18/24 09:39 UA Protein 0 mg/dL Last Edit by Agueda Cade [facility] on 08/18/24 09:39 UA pH 6.0 Last Edit by Agueda Cade [facility] on 08/18/24 09:39 UA Blood 0 Norman/uL Last Edit by Agueda Cade [facility] on 08/18/24 09:39 UA Specific Guinda 1.015 Last Edit by Agueda Cade CCM on 08/18/24 09:39 UA Ketone Negative Last Edit by Agueda Cade [facility] on 08/18/24 09:39 UA Bilirubin 0 mg/dL Last Edit by Agueda Cade [facility] on 08/18/24 09:39 UA Glucose 0 mg/dL Last Edit by Agueda Cade [facility] on 08/18/24 09:39 Results Reviewed Results Reviewed: Laboratory Last Values Urine pH (Auto) 6.0 08/18/24 09:38 Specific Guinda (Auto) 1.015 08/18/24 09:38 Urine Protein (Auto) 0 mg/dL 08/18/24 09:38 Glucose (UA)(Auto) 0 mg/dL 08/18/24 09:38 Urine Ketones (Auto) Negative 08/18/24 09:38 Urine Blood (Auto) 0 Norman/uL 08/18/24 09:38 Urine Nitrite (Auto) Negative 08/18/24 09:38 Urine Bilirubin (Auto) 0 mg/dL 08/18/24 09:38 Urine Urobilinogen (Auto) 0.2 mg/dL 08/18/24 09:38 Leukocyte Esterase (Auto) 15 Crispin/uL 08/18/24 09:38 Assessment & Plan Assessment & Plan (1) Pelvic pain in female: Code(s): R10.2 - Pelvic and perineal pain Plan: UA is positive for 15 leukocyte esterase/uL, negative for nitrites, patient not particularly symptomatic for a UTI. We also did a bacterial vaginosis panel, once that results, if it is all negative, I will treat her for a UTI. As patient is unable to articulate how she is feeling and the UA is barely positive, could just be contamination, we will wait and see before we treat her. Did advise if her symptoms get dramatically worse prior to the bacterial vaginosis panel resulting, to call us and let us know. Plan See above Orders: Orders AMB Urinalysis Automated Today Z13.9 - Encounter for screening, unspecified Bacterial Vaginosis Panel Today R10.2 - Pelvic and perineal pain Coding Level of Care Code New Pt Level 3 (11732) Diagnoses Pelvic pain in female R10.2
== END 2024-08-18 10:07 | disposition home or self-care (01) ==
PROVIDERS: PCP Family Medicine; Visit Provider Physician Assistant
DX: R10.2 Pelvic and perineal pain (principal); Z13.9 Encounter for screening, unspecified

== ENCOUNTER 2024-08-18 09:00 | Outpatient (REF) | payer OTHER, SELFPAY ==
[2024-08-18 14:44] LABS: Bacterial Vaginosis PCR NEGATIVE (Negative); Candida Group PCR NOT DETECTED (Not Detect); Candida glab krusei PCR NOT DETECTED (Not Detect); Trichomonas vaginalis PCR NOT DETECTED (Not Detect)
== END 2024-08-18 09:01 | disposition home or self-care (01) ==
LOC: HO.LAB 09:00
PROVIDERS: PCP Family Medicine; Visit Provider Physician Assistant
DX: R10.2 Pelvic and perineal pain (principal)
CPT/HCPCS: 0352U; 81003; 99202

== ENCOUNTER 2024-09-15 09:42 | Outpatient (REF) | payer OTHER, SELFPAY ==
--- NOTE | ~2024-09-15 | MM_ITS ---
EXAMINATION: MM SCREENING DIGITAL BREAST TOMOSYNTHESIS, BILATERAL CLINICAL INFORMATION: Screening. Asymptomatic. COMPARISON: Mammography: Comparison is made with available priors TECHNIQUE: Digital breast mammography with tomosynthesis is performed in both the craniocaudal and mediolateral oblique views along with computer-aided detection (CAD). FINDINGS: There are scattered areas of fibroglandular density (ACR BI-RADS breast composition Category b). There are no significant masses, abnormal calcifications, or other abnormalities. MM/MM tomosynthesis screening BI IMPRESSION: No mammographic evidence of malignancy. ASSESSMENT: BI-RADS BI-RADS 1 - Negative RECOMMENDATION: Routine annual mammography screening. 1 year F/U This examination should not preclude the clinical evaluation of a suspicious palpable abnormality. This patient's information was entered into a reminder system with a target due date for their next mammogram. Electronically signed by: Audrey Ambrosio DO 09/27/2024 12:27 PM EDT
== END 2024-09-15 09:43 | disposition home or self-care (01) ==
LOC: HO.MAMMO 09:42
PROVIDERS: PCP Family Medicine; Visit Provider Family Medicine
DX: Z12.31 Encounter for screening mammogram for malignant neoplasm of breast (principal)
CPT/HCPCS: 77063; 77067

== ENCOUNTER → 2024-09-15 10:00 | Outpatient (BNV) | payer OTHER, SELFPAY | PROVIDERS: PCP Family Medicine; Visit Provider Internal Medicine | DX: Z12.31 Encounter for screening mammogram for malignant neoplasm of breast (principal) | CPT/HCPCS: 77063; 77067 ==

== ENCOUNTER 2024-10-21 10:01 | Outpatient (REF) | payer OTHER, SELFPAY ==
--- NOTE | ~2024-10-21 | XR_ITS ---
EXAMINATION: XR KNEE, LEFT CLINICAL INFORMATION: low back and L hip pain radiating down L leg COMPARISON: May 22, 2022 TECHNIQUE: Four views of the left knee. FINDINGS: No acute cortical disruption or malalignment. No joint effusion. No lytic or blastic lesions. XR/XR knee LT 3V IMPRESSION: No acute fracture or dislocation. Electronically signed by: Jules Devries MD 10/21/2024 03:34 PM EST
--- NOTE | ~2024-10-21 | XR_ITS ---
EXAMINATION: XR ANKLE, RIGHT CLINICAL INFORMATION: increased ankle pain and swelling COMPARISON: Collated to x-ray right foot dated May 25, 2016. TECHNIQUE: AP, lateral, and mortise views of the right ankle. FINDINGS: No acute cortical disruption or malalignment. No lytic or blastic lesions. Plantar calcaneal spur, large. Exostosis at the Achilles tendon insertion. Vascular calcifications. XR/XR ankle RT min 3V IMPRESSION: No acute fracture or dislocation. Concerning plantar fasciitis. Probable enthesopathy, Achilles tendon. Electronically signed by: Jules Devries MD 10/21/2024 03:33 PM [facility]
--- NOTE | ~2024-10-21 | XR_ITS ---
EXAMINATION: XR HIP, LEFT CLINICAL INFORMATION: low back and L hip pain radiating down L leg COMPARISON: X-ray dated August 07, 2015 TECHNIQUE: Two views of the left hip. FINDINGS: No acute cortical disruption or malalignment. Calcification adjacent to the greater trochanter. No lytic or blastic lesions. XR/XR hip LT min 2V IMPRESSION: No acute fracture or dislocation. Bursitis, greater trochanter cannot be excluded. Electronically signed by: Jules Devries MD 10/21/2024 03:27 PM [facility]
--- NOTE | ~2024-10-21 | XR_ITS ---
EXAMINATION: XR LUMBOSACRAL SPINE CLINICAL INFORMATION: low back and L hip pain radiating down L leg COMPARISON: X-ray dated July 12, 2019 TECHNIQUE: Three views of the lumbosacral spine. FINDINGS: No acute cortical disruption or malalignment. Multilevel syndesmophyte formation and marginal osteophyte formation lower thoracic spine. No lytic or blastic lesions. Sclerosis and the sacroiliac joints. XR/XR lumbar spine 2-3V IMPRESSION: Multilevel spondylosis without acute fracture or listhesis Electronically signed by: Jules Devries MD 10/21/2024 03:26 PM [facility]
[2024-10-21 11:22] LABS: Hematocrit 36.9 % (37.0-47.0); Hemoglobin 11.7 g/dl (12.0-16.0); Mean Corpuscular HGB Conc 31.7 g/dl (31.0-35.0); Mean Corpuscular Hemoglobin 27.6 pg (27.0-33.0); Mean Platelet Volume 10.4 fL (9.4-12.3); Platelet Count 217 X10*3/uL (160-400); Red Blood Count 4.24 X10*6/uL (4.20-5.50); Red Cell Distribution Width 13.2 % (11.0-16.0); White Blood Count 6.1 X10*3/uL (4.8-10.8)
[2024-10-21 11:31] LABS: Estimated Average Glucose 134 mg/dL; Hemoglobin A1C 136.1148 umol/L; Hemoglobin A1c % 6.3 % (<6.0); Total Hemoglobin (HGBA1C) 3036.6881 umol/L
[2024-10-21 12:20] LABS: Creatinine Urine 62.52 mg/dL; Microalbum/Creatinine Ratio Ur 15.9 ug/mg cr (<30)
[2024-10-21 12:23] LABS: Alanine Aminotransferase 25 U/L (0-31); Albumin Level 3.8 g/dL (3.5-5.0); Alkaline Phosphatase 83 U/L (39-117); Anion Gap 11 (12-20); Aspartate Amino Transferase 24 U/L (5-31); Bilirubin Direct 0.1 mg/dL (0.0-0.5); Bilirubin Total 0.4 mg/dL (0.0-1.0); Blood Urea Nitrogen 11 mg/dL (9-16); Calcium 9.3 mg/dL (8.4-10.2); Carbon Dioxide 30 mmol/L (22-29); Chloride 104 mmol/L (96-108); Cholesterol 170 mg/dL (<200); Estimated Glomerular Filt Rate > 60; Glucose Random 147 mg/dL (60-115); HDL Cholesterol 40 mg/dL (>40); LDL Cholesterol Calculated 104 mg/dL (<100); Potassium 4.4 mmol/L (3.3-5.1); Sodium 141 mmol/L (135-145); Total Protein 6.8 g/dL (6.5-8.0); Triglycerides 131 mg/dL (<150)
[2024-10-21 12:29] LABS: Free T4 (Free Thyroxine) 1.11 ng/dL (0.71-1.85); Thyroid Stimulating Hormone 0.97 uIU/mL (0.32-4.0); Vitamin D 25-OH Total 63.4 ng/mL (>30)
[2024-10-21 15:57] LABS: Iron 74 mcg/dL (30-160); Percent Iron Saturation 27 % (15-50); Total Iron Binding Capacity 274 mcg/dL (228-428); Unsaturated Iron Binding 200 ug/dL
[2024-10-21 16:17] LABS: Ferritin 96 ng/mL (10-250)
[2024-10-24 12:53] LABS: Alpha Fetoprotein 3.5 ng/mL
== END 2024-10-21 10:02 | disposition home or self-care (01) ==
LOC: HO.HHCL 10:01
PROVIDERS: Visit Provider Family Medicine
DX: E11.29 Type 2 diabetes mellitus with other diabetic kidney complication (principal); R80.9 Proteinuria, unspecified; K76.0 Fatty (change of) liver, not elsewhere classified; M79.605 Pain in left leg; E11.22 Type 2 diabetes mellitus with diabetic chronic kidney disease; D64.9 Anemia, unspecified; M25.571 Pain in right ankle and joints of right foot; G89.29 Other chronic pain
CPT/HCPCS: 36415; 72100; 73502; 73562; 73610; 80048; 80061; 80076; 82043; 82105; 82306; 82570; 82728; 83036; 83540; 84439; 84443; 85027

== ENCOUNTER → 2024-10-21 10:19 | Outpatient (BNV) | payer OTHER, SELFPAY | PROVIDERS: Visit Provider Radiology Diagnostic Radiology | DX: M47.894 Other spondylosis, thoracic region (principal); M47.897 Other spondylosis, lumbosacral region; M25.552 Pain in left hip; M25.562 Pain in left knee; M25.571 Pain in right ankle and joints of right foot | CPT/HCPCS: 72100; 73502; 73562; 73610 ==

== ENCOUNTER 2024-10-31 13:59 | Outpatient (REF) | payer OTHER, SELFPAY | END 2024-10-31 14:00 | disposition home or self-care (01) | LOC: HO.US 13:59 | PROVIDERS: PCP Family Medicine; Visit Provider Family Medicine | DX: M79.605 Pain in left leg (principal) | CPT/HCPCS: 93925 ==

== ENCOUNTER 2024-11-08 05:49 | Outpatient (REF) | payer OTHER, SELFPAY ==
--- NOTE | 2024-11-08 | EMG_ITS ---
FINDINGS: Left tibial and peroneal motor studies were performed. Left superficial peroneal, sural and medial and lateral mixed plantars sensory studies were performed. Tibial H-reflex was obtained and paraspinal muscles were tested with a needle. IMPRESSION: Fsrq-kf-[id number] axonal sensory motor peripheral neuropathy. MD GUY Jay/KIM / [id number]
== END 2024-11-08 05:50 | disposition home or self-care (01) ==
LOC: HO.NEURO 05:49
PROVIDERS: PCP Family Medicine; Visit Provider Family Medicine
DX: M79.605 Pain in left leg (principal)
CPT/HCPCS: 95886; 95910

== ENCOUNTER 2024-11-17 09:41 | Outpatient (AMB) | payer OTHER, SELFPAY ==
[2024-11-17 09:50] VITALS: BMI 38.9
--- NOTE | 2024-11-17 09:50 | A.OFFVIS_ITS ---
Vital Signs 11/17/24 09:50 Height 5 ft Weight 199 lb BMI 38.9 Intake Visit Reasons: New problem-lower back pain radiates to bilat hips Intake Note: Cheryl 63 yr old female presents today for a new problem visit for her left lower back pain. States her pain radiates to bilateral hips. No injury or falls she can recall. States she has had this pain for many years. She describe pain as a constant ache. She has tried cortisone injection many years in her left hip with good results. Denies doing P.T for LB or hip, numbness or tingling in toes. Hx of DM and high cholesterol. Allergies ibuprofen [From Motrin] Allergy (Mild, Verified 11/17/24 09:54) Rash HPI Comments Details: Previously seen for Carpal Tunnel Syndrome and trigger finger. Eventually saw Dr. Saavedra, but no surgery yet. Doing better. Here for left hip pain. Chronic, mostly at night. Does not go to groin. But goes to lateral thigh and calf. Calf feels hard . No numbness. She also has back pain. Does not want to try injections again. Had injection years ago, which only worked for a few weeks only. 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 Patient was appropriately conversant and oriented. Good historian. MSK: No specific abnormalities found on inspection of the spine and all extremities. No pain with palpation over the lumbar area. She indicates that the pain usually is in the left lateral hip but there was no specific tenderness over GT or ITB. No specific tenderness on SI joint. Lumbar ROM was full. Bilateral hip, knee and ankle ROM WNL. No ligamentous laxity or crepitance. No increased effusion. Straight-leg raising test negative. FABERE test negative. Strength is 5/5 in all muscle groups tested. No increased tone noted. Neurological: Neurologic examination of the upper and lower extremities was nonfocal with intact sensation, muscle stretch reflexes and without focal motor deficits . Amaya?s negative bilaterally. Babinski was down going bilaterally. Clonus was negative. Gait is non-antalgic without loss of balance. Results Reviewed Results Reviewed: Ordering Physician: Lorene Lugo DO Date of Service: 10/21/24 Procedure(s): XR lumbar spine 2-3V Accession Number(s): [id number] cc: Lorene Lugo DO~ EXAMINATION: XR LUMBOSACRAL SPINE CLINICAL INFORMATION: low back and L hip pain radiating down L leg COMPARISON: X-ray dated July 12, 2019 TECHNIQUE: Three views of the lumbosacral spine. FINDINGS: No acute cortical disruption or malalignment. Multilevel syndesmophyte formation and marginal osteophyte formation lower thoracic spine. No lytic or blastic lesions. Sclerosis and the sacroiliac joints. XR/XR lumbar spine 2-3V IMPRESSION: Multilevel spondylosis without acute fracture or listhesis Ordering Physician: Lorene Lugo DO Date of Service: 10/21/24 Procedure(s): XR hip LT min 2V Accession Number(s): [id number] cc: Lorene Lugo DO~ EXAMINATION: XR HIP, LEFT CLINICAL INFORMATION: low back and L hip pain radiating down L leg COMPARISON: X-ray dated August 07, 2015 TECHNIQUE: Two views of the left hip. FINDINGS: No acute cortical disruption or malalignment. Calcification adjacent to the greater trochanter. No lytic or blastic lesions. XR/XR hip LT min 2V IMPRESSION: No acute fracture or dislocation. Bursitis, greater trochanter cannot be excluded. Assessment & Plan Assessment & Plan (1) Lateral pain of left hip: Code(s): M25.552 - Pain in left hip Category: Medical Plan Chronic left lateral hip pain. X-ray 2022 did show calcification in the trochanteric? Although she does not have any pinpoint tenderness over GT that would indicate active bursitis. We talked about possible referral to PT versus injection. Patient defers both. Patient says she will call when pain is really severe. We talked about better sleeping position, perhaps avoiding sleeping on her left side. Also can trial icy hot lidocaine/menthol. No signs of lumbar radiculopathy on exam. Assessment and plan discussed with patient, and patient was agreeable. All questions were answered thoroughly. Traci Caballero MD, TIM Board Certified, [place] [employer] and [employer] (ABPMR) Board Certified, [place] [employer] Electrodiagnostic [employer] (ABEM) Coding Level of Care Code Est Pt Level 3 (77461) Diagnoses Lateral pain of left hip M25.552
== END 2024-11-17 10:12 | disposition home or self-care (01) ==
PROVIDERS: PCP Family Medicine; Visit Provider Physical Medicine & Rehabilitation
DX: M25.552 Pain in left hip (principal)
CPT/HCPCS: 99213

== ENCOUNTER → 2024-11-17 09:41 | Outpatient (BNVA) | payer OTHER, SELFPAY | PROVIDERS: PCP Family Medicine; Visit Provider Physical Medicine & Rehabilitation | DX: M25.552 Pain in left hip (principal) | CPT/HCPCS: 99212 ==

== ENCOUNTER 2025-02-14 03:07 | Emergency (ER) | payer OTHER, SELFPAY ==
[2025-02-14 03:10] VITALS: BP 163/81; PULSE 98; RESP 12; TEMP 36.9; O2SAT 97; BMI 38.5
[2025-02-14 03:26] VITALS: BP 163/81; PULSE 98; RESP 12; TEMP 36.9; O2SAT 97
[2025-02-14 04:02] LABS: MANUAL DIFF FLAG NO
[2025-02-14 04:03] LABS: Appearance Urine Cloudy; Color Urine Yellow; Glucose Urine UA Negative (Negative); Leukocyte Esterase Urine Small (1+) (Negative); Nitrite Urine Negative (Negative); UMIC TRIGGER UA YES; Urine Blood Negative (Negative); Urine Ketones Negative (Negative); Urine Protein Negative (Neg-Trace)
[2025-02-14 04:04] LABS: Basophils Percent Auto 0.3 % (0-2); Eosinophils Absolute Auto 0.1 X10*3/uL (0.0-0.4); Eosinophils Percent Auto 1.2 % (0-4); Hemoglobin 12.1 g/dl (12.0-16.0); Imm Gran Abs Auto 0.02 X10*3/uL (0.00-0.03); Imm Gran Pct Auto 0.3 % (0.0-0.4); Lymphocytes Absolute Auto 1.9 X10*3/uL (1.2-4.9); Lymphocytes Percent Auto 25.3 % (20-40); Mean Corpuscular HGB Conc 33.6 g/dl (31.0-35.0); Mean Corpuscular Hemoglobin 28.3 pg (27.0-33.0); Mean Corpuscular Volume 84.3 fL (80.0-98.0); Mean Platelet Volume 10.5 fL (9.4-12.3); Monocytes Absolute Auto 0.8 X10*3/uL (0.1-1.2); Monocytes Percent Auto 10.8 % (2-11); Neutrophils Absolute Auto 4.7 x10*3/uL (2.0-8.3); Neutrophils Percent Auto 62.1 % (45-73); Platelet Count 210 X10*3/uL (160-400); Red Blood Count 4.27 X10*6/uL (4.20-5.50); Red Cell Distribution Width 13.2 % (11.0-16.0); White Blood Count 7.6 X10*3/uL (4.8-10.8)
[2025-02-14 04:12] LABS: Bacteria Urine None Seen (None Seen); Hyaline Casts Urine 0-2 /LPF (0-2); Other Crystals Urine Present; RBC Urine 0-2 /HPF (0-2); Squamous Epithelial Cell Urine 0-2 /HPF (0-2); WBC Urine 0-5 /HPF (0-5)
[2025-02-14 04:16] LABS: IDNOW Serial# 58CA691E; Strep A Nucleic Acid Negative (Negative)
[2025-02-14 04:29] LABS: Alanine Aminotransferase 26 U/L (0-31); Albumin Level 3.8 g/dL (3.5-5.0); Alkaline Phosphatase 79 U/L (39-117); Anion Gap 13 (12-20); Aspartate Amino Transferase 27 U/L (5-31); Bilirubin Total 0.4 mg/dL (0.0-1.0); Blood Urea Nitrogen 12 mg/dL (9-16); Calcium 9.4 mg/dL (8.4-10.2); Carbon Dioxide 29 mmol/L (22-29); Chloride 105 mmol/L (96-108); Creatinine Clr Calc Pharmacy 83.4; Estimated Glomerular Filt Rate > 60; Glucose Random 154 mg/dL (60-115); Potassium 3.9 mmol/L (3.3-5.1); Sodium 143 mmol/L (135-145); Total Protein 7.3 g/dL (6.5-8.0)
[2025-02-14 04:42] LABS: Influenza A PCR NEGATIVE (Negative); Influenza B PCR NEGATIVE (Negative); Resp Syncy Virus RNA Qual PCR NEGATIVE (Negative); SARS COV2 PCR INHOUSE NEGATIVE (Negative)
--- NOTE | 2025-02-14 05:32 | ED_ITS ---
HPI - General Adult General Chief complaint: Upper Respiratory Symptoms Stated complaint: not feeling well Time Seen by Provider: 02/14/25 05:27 Source: patient Mode of arrival: ambulatory Limitations: no limitations History of Present Illness ED Provider: Dr. Laureen Mtz HPI narrative: Patient comes to the emergency room reporting that 3 hours ago patient woke up feeling hot and shaky. Patient denies chest pain or shortness of breath. Patient states that she feels a little sore throat but now it is gone. Denies nausea vomiting diarrhea. Denies abdominal pain. Patient states that at this time she feels much better than earlier today when she was at home. Related Data Home Medications ?Medication ?Instructions ?Recorded ?Confirmed aspirin 81 mg tablet,delayed 81 mg PO DAILY 03/15/21 06/15/24 release atorvastatin 40 mg tablet 40 mg PO BEDTIME 03/15/21 06/15/24 cholecalciferol (vitamin D3) 50 50 mcg PO DAILY 03/15/21 06/15/24 mcg (2,000 unit) tablet docusate sodium 100 mg capsule 100 mg PO DAILY 03/15/21 06/15/24 multivitamin-ferrous 1 tab PO DAILY 03/15/21 06/15/24 fumarate-folic acid 18 mg-400 mcg tablet omeprazole 20 mg capsule,delayed 20 mg PO DAILY 03/15/21 06/15/24 release sertraline 50 mg tablet 50 mg PO DAILY 03/15/21 06/15/24 losartan 50 mg tablet 50 mg PO DAILY 03/21/22 06/15/24 blood sugar diagnostic (FreeStyle #10 ea 05/22/22 06/15/24 Lite Strips) omega 0-voe-rih-fish oil 100 1 cap PO DAILY 05/22/22 06/15/24 mg-160 mg-1,000 mg capsule (Fish Oil) lancets 28 gauge (FreeStyle #100 ea 12/09/22 06/15/24 Lancets) cetirizine 10 mg tablet 10 mg PO DAILY 04/20/24 06/15/24 ascorbic acid (vitamin C) 500 mg mg PO 08/18/24 capsule dulaglutide 1.5 mg/0.5 mL mg subcut 08/18/24 subcutaneous pen injector (Trulicity) Previous Rx's ?Medication ?Instructions ?Recorded cefuroxime axetil 500 mg tablet 500 mg PO Q12H #10 tabs 08/18/24 Allergies Allergy/AdvReac Type Severity Reaction Status Date / Time ibuprofen [From Motrin] Allergy Mild Rash Verified 02/14/25 03:13 Review of Systems 2 Review of Systems: Constitutional : No Weight loss, No Fever, No Chills, No Night Sweats, No Fatigue, No Malaise, complaining of feeling hot ENT/Mouth : No Hearing loss, No Ear Pain, No Nasal Congestion, No Sinus Pain, No Hoarseness, complaining of mild sore throat, No Rhinorrhea, No Swallowing Difficulty Eyes: No Eye Pain, No Swelling, No Redness, No Foreign Body, No Discharge, No Vision Changes Cardiovascular : No Chest Pain, No SOB, No Dyspnea on Exertion, No Orthopnea, No Edema, No Palpitations Respiratory : No Cough, No Sputum, No Wheezing, No Smoke Exposure, No Dyspnea Gastrointestinal : No Nausea, No Vomiting, No Diarrhea, No Constipation, No abdominal Pain, No Hematochezia, No Melena Genitourinary : no irregular bleeding, No Dysuria, No Urinary Frequency, No Hematuria, No Urinary Incontinence, No Urgency, No Flank Pain, No Urinary Flow Changes, No Hesitancy Musculoskeletal : No joint pain, No Myalgias, No Joint Swelling Skin : No Skin Lesions, No rash Neuro : No Weakness, No Numbness, No Paresthesias, No Loss of Consciousness, No Dizziness, No Headache Psych : No Anxiety/Panic, No Depression, No SI/HI/AH/VH, No Social Issues, Heme/Lymph: No Bruising, No Bleeding,No Lymphadenopathy Endocrine : No Polyuria, No Polydipsia, No Temperature Intolerance [facility] Past Medical History Medical History Carpal tunnel syndrome of right wrist History of carpal tunnel syndrome GERD (gastroesophageal reflux disease) Arthritis HTN (hypertension) History of palpitations Mitral valve regurgitation Hyperlipidemia Nephrolithiasis Wrist pain, right Diabetes Surgical History Hx of colonoscopy History of esophagogastroduodenoscopy (EGD) History of tubal ligation Social History Social History Patient Tobacco Use Status: Never used Tobacco Smoked in Last 30 Days: No Use of substances other than those prescribed or required for medical reasons: No Advance Directives: No Advance Directives Information Provided: Yes Do you have a plan to hurt others: No Plan Current occupational status: disabled 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 Oriented X3. No acute distress. Eyes: Pupils equal, round and reactive to light. ENT: Pharynx normal. Neck: Normal inspection. Neck supple. No lymph nodes noted. No crepitus CVS: Normal heart rate and rhythm. Pulses normal. Normal S1 and S2 Respiratory: No respiratory distress. Breath sounds normal. No Wheezing. No rales Abdomen: Soft and nontender. No rigidity. No distention. Skin: Skin warm and dry. Normal skin color. Normal skin turgor. Extremities: No lower extremity edema. No Lacerations. No Rash Neuro: Oriented X 3. No motor deficit. No sensory deficit. Moving all extremities. No slurred speech. CN 2 through 12 grossly intact Psych: calm, cooperative, normal affect Medical Decision Making Medical Decision Making [facility] Narrative: My interpretation of labs, normal hematology, normal chemistry, normal LFTs, urinalysis negative, serology negative patient's physical exam is normal No acute abnormality in patient's vitals. Patient likely had a viral syndrome. Patient states that this time she feels better without any medication, feels well to go home. Differential Diagnosis Differential Diagnoses: The differential diagnosis associated with the presentation includes Lab Data [facility] Lab Attestation statement: I reviewed the patient's lab results. 02/14/25 03:48 02/14/25 03:48 Labs: Lab Results 02/14/25 02/14/25 02/14/25 Range/Units 03:44 03:48 03:51 WBC 7.6 (4.8-10.8) X10*3/uL RBC 4.27 (4.20-5.50) X10*6/uL Hgb 12.1 (12.0-16.0) g/dl Hct 36.0 L (37.0-47.0) % MCV 84.3 (80.0-98.0) fL MCH 28.3 (27.0-33.0) pg MCHC 33.6 (31.0-35.0) g/dl RDW 13.2 (11.0-16.0) % Plt Count 210 (160-400) X10*3/uL MPV 10.5 (9.4-12.3) fL Immature Gran % (Auto) 0.3 (0.0-0.4) % Neut % (Auto) 62.1 (45-73) % Lymph % (Auto) 25.3 (20-40) % [place] % (Auto) 10.8 (2-11) % Eos % (Auto) 1.2 (0-4) % Baso % (Auto) 0.3 (0-2) % Lymph # (Auto) 1.9 (1.2-4.9) X10*3/uL [place] # (Auto) 0.8 (0.1-1.2) X10*3/uL Eos # (Auto) 0.1 (0.0-0.4) X10*3/uL Baso # (Auto) 0.0 (0.0-0.2) X10*3/uL Abs Immat Gran (auto) 0.02 (0.00-0.03) X10*3/uL Absolute Neuts (auto) 4.7 (2.0-8.3) x10*3/uL Absolute Nucleated RBC 0.000 (0.0-0.012) X10*3/uL Nucleated RBC % (auto) 0.0 (0.0-0.2) /100WBC Sodium 143 (135-145) mmol/L Potassium 3.9 (3.3-5.1) mmol/L Chloride 105 (96-108) mmol/L Carbon Dioxide 29 (22-29) mmol/L Anion Gap 13 (12-20) BUN 12 (9-16) mg/dL Creatinine 0.66 (0.5-1.4) mg/dL Estim Creat Clear Calc 83.4 Estimated GFR > 60 Random Glucose 154 H (60-115) mg/dL Calcium 9.4 (8.4-10.2) mg/dL Total Bilirubin 0.4 (0.0-1.0) mg/dL AST 27 (5-31) U/L ALT 26 (0-31) U/L Alkaline Phosphatase 79 (39-117) U/L Total Protein 7.3 (6.5-8.0) g/dL Albumin 3.8 (3.5-5.0) g/dL Urine Color Yellow Urine Appearance Cloudy Urine pH 7.0 (5.0-9.0) Ur Specific [place] 1.010 (1.005-1.025) Urine Protein Negative (Neg-Trace) mg/dL Urine Glucose (UA) Negative (Negative) mg/dL Urine Ketones Negative (Negative) mg/dL Urine Blood Negative (Negative) Urine Nitrite Negative (Negative) Ur Leukocyte Esterase Small (1+) H (Negative) Urine RBC 0-2 (0-2) /HPF Urine WBC 0-5 (0-5) /HPF Ur Squamous Epith Cells 0-2 (0-2) /HPF Other Crystals Present Urine Bacteria None Seen (None Seen) Hyaline Casts 0-2 (0-2) /LPF Influenza Type A (PCR) NEGATIVE (Negative) Influenza Type B (PCR) NEGATIVE (Negative) RSV RNA Qual (PCR) NEGATIVE (Negative) SARS-CoV-2 RNA (RT-PCR) NEGATIVE (Negative) S. pyogenes GrpA JOSTIN Negative (Negative) Discharge Plan Discharge Clinical Impression: Acute viral syndrome Patient Disposition: Home, Self-Care Instructions: Viral Syndrome (ED) Additional Instructions: Please follow-up with your primary care physician tomorrow. If you have any worsening or new symptoms, please return to the emergency room or call 911 Prescriptions: No Action cefuroxime axetil 500 mg tablet 500 mg PO Q12H Qty: 10 0RF cetirizine 10 mg Tablet 10 mg PO DAILY Centrum Women 18-400 mg-mcg tablet 1 tab PO DAILY cholecalciferol (vitamin D3) 50 mcg (2,000 unit) tablet 50 mcg PO DAILY sertraline 50 mg tablet 50 mg PO DAILY aspirin 81 mg tablet,delayed release (DR/EC) 81 mg PO DAILY omeprazole 20 mg capsule,delayed release(DR/EC) 20 mg PO DAILY atorvastatin 40 mg tablet 40 mg PO BEDTIME docusate sodium 100 mg capsule 100 mg PO DAILY (DME) lancets [FreeStyle Lancets] 28 gauge misc See Rx Instructions .ROUTE BID Qty: 100 Rx Instructions: As directed losartan 50 mg tablet 50 mg PO DAILY (DME) FreeStyle Lite Strips Strip See Rx Instructions Not Applicable BID Qty: 10 Rx Instructions: As directed Fish Oil 100-160-1,000 mg capsule 1 cap PO DAILY Trulicity 1.5 mg/0.5 mL pen injector subcut ascorbic acid (vitamin C) 500 mg capsule PO Print Language: Lithuanian
[2025-02-14 05:40] VITALS: BP 154/74; PULSE 93; RESP 16; TEMP 36.6; O2SAT 98
== END 2025-02-14 05:49 | disposition home or self-care (01) ==
PROVIDERS: Emergency Provider Emergency Medicine; PCP Family Medicine
DX: B34.9 Viral infection, unspecified (principal); I10 Essential (primary) hypertension; E11.9 Type 2 diabetes mellitus without complications; K21.9 Gastro-esophageal reflux disease without esophagitis; E78.5 Hyperlipidemia, unspecified; Z03.818 Encounter for observation for suspected exposure to other biological agents ruled out; Z79.899 Other long term (current) drug therapy
CPT/HCPCS: 0241U; 80053; 81001; 81003; 85025; 87651; 99283; 99284

== ENCOUNTER 2025-03-17 02:33 | Emergency (ER) | payer OTHER, SELFPAY ==
--- NOTE | ~2025-03-17 | CT_ITS ---
EXAMINATION: CT ABDOMEN PELVIS WITH IV CONTRAST HISTORY: RLQ pain, R/O appy COMPARISON: Comparison is made with the prior examination dated 04/12/2016. TECHNIQUE: CT scan of the abdomen and pelvis was performed following administration of 85 mL Omnipaque 350 using standard departmental protocol. Coronal and sagittal reformatted images were generated and reviewed. Oral contrast material was not administered at the request of the referring physician. This CT exam was performed with one or more of the following dose reduction techniques: automated exposure control, adjustment of the mA and/or kV according to patient size, use of iterative reconstruction technique. DLP: 707 mGy-cm FINDINGS: LOWER CHEST: The visualized lung bases are clear. There is no pleural effusion. CARDIOVASCULATURE: The heart is normal in size. There is no pericardial effusion. LIVER: The liver is normal in size and contour. No liver mass is identified. The hepatic and portal veins are patent. GALLBLADDER / BILE DUCTS: The gallbladder is unremarkable. There is no intra or extrahepatic biliary ductal dilatation. SPLEEN: The spleen is normal in size. No focal splenic lesion is identified. PANCREAS: The pancreas is unremarkable in appearance. ADRENAL GLANDS: Within normal limits. KIDNEYS/RETROPERITONEUM: There is a 6 mm nonobstructing calculus in the interpolar region of the right kidney. A 3 mm nonobstructing calculus is seen at the lower pole of the left kidney. There is no hydronephrosis. No renal masses are identified. LYMPH NODES: There are mildly prominent mesenteric lymph nodes with associated slight mesenteric haziness without change. No para-aortic lymphadenopathy is seen. VASCULATURE: The abdominal aorta is normal in caliber. MESENTERY/PERITONEUM: No free fluid. No masses. There is no free intraperitoneal gas. STOMACH: The stomach is collapsed, limiting evaluation. SMALL BOWEL: The small bowel is normal in caliber. COLON: The colon is unremarkable. APPENDIX: Normal. URINARY BLADDER/PELVIC ORGANS: The urinary bladder is unremarkable. The uterus and ovaries are unremarkable. BONES / SOFT TISSUES: No suspicious bony or soft tissue abnormalities. CT/CT abdomen pelvis w IV con IMPRESSION: 1. A normal appendix is visualized. 2. Bilateral nephrolithiasis as described, without evidence of ureteral obstruction. Electronically signed by: Tung King MD 03/17/2025 08:56 AM EDT
[2025-03-17 02:35] VITALS: BP 168/86; PULSE 102; RESP 18; TEMP 36.4; O2SAT 97; BMI 35.2
[2025-03-17 04:17] LABS: MANUAL DIFF FLAG NO
[2025-03-17 04:20] LABS: Basophils Percent Auto 0.2 % (0-2); Eosinophils Percent Auto 0.4 % (0-4); Hemoglobin 11.9 g/dl (12.0-16.0); Imm Gran Abs Auto 0.01 X10*3/uL (0.00-0.03); Imm Gran Pct Auto 0.1 % (0.0-0.4); Lymphocytes Absolute Auto 1.2 X10*3/uL (1.2-4.9); Lymphocytes Percent Auto 15.2 % (20-40); Mean Corpuscular HGB Conc 33.1 g/dl (31.0-35.0); Mean Corpuscular Hemoglobin 28.3 pg (27.0-33.0); Mean Corpuscular Volume 85.7 fL (80.0-98.0); Mean Platelet Volume 10.2 fL (9.4-12.3); Monocytes Absolute Auto 0.7 X10*3/uL (0.1-1.2); Monocytes Percent Auto 8.2 % (2-11); Neutrophils Absolute Auto 6.1 x10*3/uL (2.0-8.3); Neutrophils Percent Auto 75.9 % (45-73); Platelet Count 198 X10*3/uL (160-400); Red Cell Distribution Width 13.2 % (11.0-16.0); White Blood Count 8.1 X10*3/uL (4.8-10.8)
--- NOTE | 2025-03-17 04:41 | PC.NURSE ---
pt feels like she is constipated. states she has to push too much when she needs to have a bm. last bm after buddhism at 2200.
[2025-03-17 04:47] LABS: Alanine Aminotransferase 23 U/L (0-31); Albumin Level 3.8 g/dL (3.5-5.0); Alkaline Phosphatase 78 U/L (39-117); Anion Gap 13 (12-20); Aspartate Amino Transferase 26 U/L (5-31); Bilirubin Total 0.4 mg/dL (0.0-1.0); Blood Urea Nitrogen 15 mg/dL (9-16); Calcium 8.9 mg/dL (8.4-10.2); Carbon Dioxide 24 mmol/L (22-29); Chloride 107 mmol/L (96-108); Creatinine Clr Calc Pharmacy 84.4; Estimated Glomerular Filt Rate > 60; Glucose Random 151 mg/dL (60-115); Potassium 3.9 mmol/L (3.3-5.1); Sodium 140 mmol/L (135-145)
[2025-03-17 04:56] VITALS: BP 162/83; PULSE 99; RESP 16; TEMP 36.8; O2SAT 97
[2025-03-17 06:00] VITALS: BP 151/75; PULSE 101; RESP 16; TEMP 37.5; O2SAT 95
--- NOTE | 2025-03-17 07:07 | ED.ABDPAIN ---
HPI - Abdominal Pain General Chief Complaint: Abdominal Pain Stated Complaint: abd pain Time Seen by Provider: 03/17/25 07:06 Source: patient Mode of arrival: ambulatory Limitations: no limitations History of Present Illness ED Provider: CITLALI AKINS narrative: 64 year-old female with PMHx of GERD, T2DM, presents to the ED today due to abdominal pain. She states she has chronic constipation and when she went to move her bowels last night (03/16) she experienced a sudden onset of generalized abdominal pain and pressure. She reports the pain is intermittent, worsens with movement and is associated with nausea, but did not vomit. She also reports having some chills last night after experiencing the abdominal pain. She explains she has never felt abdominal pain like this in her past. She denies recent illness, black or bloody stools, vomiting, fever, cough, chest pain, SOB or urinary symptoms. MD elicited complaint: abdominal pain Pertinent past history: constipation and other (T2DM) Onset (ago): hour(s) (last night (03/16) 10pm ) Pain Consistency: intermittent Location: RLQ Severity: moderate Quality: other (pressure ) Radiation: none Exacerbating factors: movement Relieving factors: nothing Related Data Home Medications ?Medication ?Instructions ?Recorded ?Confirmed aspirin 81 mg tablet,delayed 81 mg PO DAILY 03/15/21 06/15/24 release atorvastatin 40 mg tablet 40 mg PO BEDTIME 03/15/21 06/15/24 cholecalciferol (vitamin D3) 50 50 mcg PO DAILY 03/15/21 06/15/24 mcg (2,000 unit) tablet docusate sodium 100 mg capsule 100 mg PO DAILY 03/15/21 06/15/24 multivitamin-ferrous 1 tab PO DAILY 03/15/21 06/15/24 fumarate-folic acid 18 mg-400 mcg tablet omeprazole 20 mg capsule,delayed 20 mg PO DAILY 03/15/21 06/15/24 release sertraline 50 mg tablet 50 mg PO DAILY 03/15/21 06/15/24 losartan 50 mg tablet 50 mg PO DAILY 03/21/22 06/15/24 blood sugar diagnostic (FreeStyle #10 ea 05/22/22 06/15/24 Lite Strips) omega 6-qfq-edc-fish oil 100 1 cap PO DAILY 05/22/22 06/15/24 mg-160 mg-1,000 mg capsule (Fish Oil) lancets 28 gauge (FreeStyle #100 ea 12/09/22 06/15/24 Lancets) cetirizine 10 mg tablet 10 mg PO DAILY 04/20/24 06/15/24 ascorbic acid (vitamin C) 500 mg mg PO 08/18/24 capsule dulaglutide 1.5 mg/0.5 mL mg subcut 08/18/24 subcutaneous pen injector (Trulicity) Previous Rx's ?Medication ?Instructions ?Recorded cefuroxime axetil 500 mg tablet 500 mg PO Q12H #10 tabs 08/18/24 aluminum hydrox-magnesium carb 254 10 ml PO QID PRN dyspepsia #355 mL 03/17/25 mg-237.5 mg/5 mL oral suspension (Gaviscon Extra Strength) Allergies Allergy/AdvReac Type Severity Reaction Status Date / Time ibuprofen [From Motrin] Allergy Mild Rash Verified 03/17/25 02:37 Review of Systems Review of Systems Yes all other systems are reviewed and are negative PMFSH Past Medical History Attestation statement: The following information was validated with the patient. Source: old records reviewed Medical History Carpal tunnel syndrome of right wrist History of carpal tunnel syndrome GERD (gastroesophageal reflux disease) Arthritis HTN (hypertension) History of palpitations Mitral valve regurgitation Hyperlipidemia Nephrolithiasis Wrist pain, right Diabetes Surgical History Hx of colonoscopy History of esophagogastroduodenoscopy (EGD) History of tubal ligation Social History Social History Alcohol intake: never Patient Tobacco Use Status: Never used Tobacco Smoked in Last 30 Days: No Use of substances other than those prescribed or required for medical reasons: No Advance Directives: No Advance Directives Information Provided: Yes Do you have a plan to hurt others: No Plan Current occupational status: disabled 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 Physical Exam ED Vital Signs: Vital Signs - 24 hr 03/17/25 02:35 03/17/25 04:56 03/17/25 06:00 Temperature 97.5 F 98.3 F 99.5 F Pulse Rate 102 H 99 101 H Respiratory Rate 18 16 16 Blood Pressure 168/86 H 162/83 H 151/75 H Pulse Oximetry 97 97 95 Oxygen Delivery Method Room Air Room Air Room Air 03/17/25 08:42 Temperature 97.8 F Pulse Rate 102 H Respiratory Rate 16 Blood Pressure 141/77 H Pulse Oximetry 97 Oxygen Delivery Method Room Air BMI result Body Mass Index 35.2 Initial vital signs: Tachycardic rate- 101 BPM Elevated BP- 151/57 Exam: General: Awake, alert in no distress Head: Normocephalic, atraumatic EENT: PERRL, Lids normal, sclera normal, conjunctiva normal, nose normal , ears normal, throat without erythema or exudates Neck: Supple, no adenopathy Lung: breath sounds symmetric, no wheezing, rales or rhonchi Chest: symmetric movement, tenderness to palpation over right chest wall Heart: tachycardic rate and normal rhythm, normal S1, S2 no murmurs or rubs Abdomen: soft, nondistended, hyperactive bowel sounds, mild tenderness to palpation over epigastric region, moderate to severe tenderness to palpation over RLQ. Rovsing sign negative, Mcdowell's sign negative, mild tenderness to palpation over suprapubic area. Back: no vertebral tenderness, no CVAT Extremities: no deformities, moves all extremities symmetrically Neuro: Awake, alert, oriented, normal speech, cranial nerves intact, moves all extremities symmetrically Psych: Pleasant, cooperative Medical Decision Making Medical Decision Making MDM Narrative: 64 year-old female with PMHx of GERD, T2DM, presents to the ED today due to abdominal pain. She states she has chronic constipation and when she went to move her bowels last night (03/16) she experienced a sudden onset of generalized abdominal pain and pressure. She reports the pain is intermittent, worsens with movement and is associated with nausea, but did not vomit. She also reports having some chills last night after experiencing the abdominal pain. She explains she has never felt abdominal pain like this in her past. She denies recent illness, black or bloody stools, vomiting, fever, cough, chest pain, SOB or urinary symptoms. Patient vital signs are stable with exception of tacycardic rate at 101BPM and elevated BP at 151/75. She is in no acute distress and non-toxic appearing. On physical exam she has moderate to severe pain to palpation over the RLQ, does not appear to have peritoneal signs, rovsing sign is negative, Mcdowell's sign is negative. There are hyperactive bowel sounds over all abdominal quadrants. My interpretation of the labs are as follows: Labs are stable and unremarkable with exception of chronic normocitic anemia and elevated glucose at 151. Will start patient on IV fluids, IV Tylenol for pain management, and Ondansetron to address nausea. CT abdomen ordered to observe for acute abdomen. High suspicion for appendicitis as abdomen is significant for RLQ pain. Patient is passing flatus and stool, lower concerns for obstruction. Hyperactive bowel sounds make ileus less likely. Lipase within normal limits less likely pancreatitis. Course 09:12: CT abdomen pelvis resulted with no acute findings. Abdominal pain has resolved completely at this time, repeat exam showed no abdominal tenderness. Most likely gastritis. Patient counseled on continuing to take her omeprazole, and adding Gaviscon to her regimen to manage gastric acid production. She feels comfortable to go home. Differential Diagnosis Differential Diagnoses: The differential diagnosis associated with the presentation includes appendicitis, diverticulitis, pancreatitis, gastritis, gastroparesis, obstruction, ovarian cyst Admission/Observation Consideration of admission/observation: Escalation of care including admission/observation considered Lab Data MDM Lab Attestation statement: I reviewed the patient's lab results. 03/17/25 04:08 03/17/25 04:08 Labs: Lab Results 03/17/25 03/17/25 Range/Units 04:08 07:36 WBC 8.1 (4.8-10.8) X10*3/uL RBC 4.20 (4.20-5.50) X10*6/uL Hgb 11.9 L (12.0-16.0) g/dl Hct 36.0 L (37.0-47.0) % MCV 85.7 (80.0-98.0) fL MCH 28.3 (27.0-33.0) pg MCHC 33.1 (31.0-35.0) g/dl RDW 13.2 (11.0-16.0) % Plt Count 198 (160-400) X10*3/uL MPV 10.2 (9.4-12.3) fL Immature Gran % (Auto) 0.1 (0.0-0.4) % Neut % (Auto) 75.9 H (45-73) % Lymph % (Auto) 15.2 L (20-40) % [place] % (Auto) 8.2 (2-11) % Eos % (Auto) 0.4 (0-4) % Baso % (Auto) 0.2 (0-2) % Lymph # (Auto) 1.2 (1.2-4.9) X10*3/uL [place] # (Auto) 0.7 (0.1-1.2) X10*3/uL Eos # (Auto) 0.0 (0.0-0.4) X10*3/uL Baso # (Auto) 0.0 (0.0-0.2) X10*3/uL Abs Immat Gran (auto) 0.01 (0.00-0.03) X10*3/uL Absolute Neuts (auto) 6.1 (2.0-8.3) x10*3/uL Absolute Nucleated RBC 0.000 (0.0-0.012) X10*3/uL Nucleated RBC % (auto) 0.0 (0.0-0.2) /100WBC Sodium 140 (135-145) mmol/L Potassium 3.9 (3.3-5.1) mmol/L Chloride 107 (96-108) mmol/L Carbon Dioxide 24 (22-29) mmol/L Anion Gap 13 (12-20) BUN 15 (9-16) mg/dL Creatinine 0.62 (0.5-1.4) mg/dL Estim Creat Clear Calc 84.4 Estimated GFR > 60 Random Glucose 151 H (60-115) mg/dL Calcium 8.9 (8.4-10.2) mg/dL Total Bilirubin 0.4 (0.0-1.0) mg/dL AST 26 (5-31) U/L ALT 23 (0-31) U/L Alkaline Phosphatase 78 (39-117) U/L Total Protein 7.0 (6.5-8.0) g/dL Albumin 3.8 (3.5-5.0) g/dL Lipase 29 (8-78) U/L Urine Color Yellow Urine Appearance Clear Urine pH 6.5 (5.0-9.0) Ur Specific [place] 1.015 (1.005-1.025) Urine Protein Negative (Neg-Trace) mg/dL Urine Glucose (UA) Negative (Negative) mg/dL Urine Ketones Negative (Negative) mg/dL Urine Blood Negative (Negative) Urine Nitrite Negative (Negative) Ur Leukocyte Esterase Moderate (2+) H (Negative) Urine RBC 0-2 (0-2) /HPF Urine WBC 11-20 H (0-5) /HPF Ur Squamous Epith Cells 6-10 (0-2) /HPF Urine Bacteria Trace (None Seen) Hyaline Casts 0-2 (0-2) /LPF Independent Interpretation I performed an independent interpretation of an: CT Scan Radiology Impression Discussion of test interpretation with radiology: I have reviewed the radiologist's reading. Radiologist Impression: CT/CT abdomen pelvis w IV con IMPRESSION: 1. A normal appendix is visualized. 2. Bilateral nephrolithiasis as described, without evidence of ureteral obstruction. Electronically signed by: Tung King MD 03/17/2025 08:56 AM EDT External Record Review External record reviewed: Inpatient record Prescription Management I considered prescription management with: Other (Gaviscon, antacid medication ) Chronic Conditions Patient?s care impacted by: Diabetes Medications Administered Discontinued Medications Generic Name Dose Route Start Last Admin Trade Name Freq PRN Reason Stop Dose Admin Acetaminophen 1,000 mg in 100 mls @ 400 mls/hr 03/17/25 07:25 03/17/25 08:26 Ofirmev IV 03/17/25 07:39 Infused ONCE ONE Infusion Iohexol 100 ml 03/17/25 08:40 03/17/25 08:42 Iohexol 350 Mg/Ml 100 Ml Infus..Btl IV 03/17/25 08:41 85 ml ONCE ONE Administration Ondansetron HCl 4 mg 03/17/25 07:25 03/17/25 07:39 Ondansetron Hcl 4 Mg/2 Ml Vial IVPUSH 03/17/25 07:26 4 mg ONCE ONE Administration Discharge Plan Discharge Clinical Impression: Abdominal pain Qualifiers: Abdominal location: right lower quadrant Qualified Code(s): R10.31 - Right lower quadrant pain Gastritis Qualifiers: Gastritis type: unspecified gastritis Chronicity: acute Gastritis bleeding: without bleeding Qualified Code(s): K29.00 - Acute gastritis without bleeding Patient Disposition: Home, Self-Care Instructions: Gastritis (ED) Additional Instructions: You were evaluated in the Ed today for abdominal pain. Your vital signs, lab work and CT imaging of your abdomen and pelvis were all reassuring and did not reveal any findings. Your abdominal pain is due to gastritis due to overproduction of stomach acid causing your discomfort. It is important that you continue to take your omeprazole for management. Additionally, you will be discharged with a new medication called Gaviscon which is an extra strength antacid and anti gas medication that can offer additional aid in managing your symptoms. Please follow up with your primary care provider within 5 days to ensure your improvement of symptoms. Please return to the ED if you are experiencing fevers over 100.4, worsening abdominal pain, vomiting, diarrhea, or any other symptoms or concerns. Prescriptions: New Gaviscon Extra Strength 254-237.5 mg/5 mL suspension 10 ml PO QID PRN (Reason: dyspepsia) Qty: 355 0RF No Action cefuroxime axetil 500 mg tablet 500 mg PO Q12H Qty: 10 0RF cetirizine 10 mg Tablet 10 mg PO DAILY Centrum Women 18-400 mg-mcg tablet 1 tab PO DAILY cholecalciferol (vitamin D3) 50 mcg (2,000 unit) tablet 50 mcg PO DAILY sertraline 50 mg tablet 50 mg PO DAILY aspirin 81 mg tablet,delayed release (DR/EC) 81 mg PO DAILY omeprazole 20 mg capsule,delayed release(DR/EC) 20 mg PO DAILY atorvastatin 40 mg tablet 40 mg PO BEDTIME docusate sodium 100 mg capsule 100 mg PO DAILY (DME) lancets [FreeStyle Lancets] 28 gauge misc See Rx Instructions .ROUTE BID Qty: 100 Rx Instructions: As directed losartan 50 mg tablet 50 mg PO DAILY (DME) FreeStyle Lite Strips Strip See Rx Instructions Not Applicable BID Qty: 10 Rx Instructions: As directed Fish Oil 100-160-1,000 mg capsule 1 cap PO DAILY Trulicity 1.5 mg/0.5 mL pen injector subcut ascorbic acid (vitamin C) 500 mg capsule PO Print Language: Mauritian
[2025-03-17 07:28] LABS: Lipase 29 U/L (8-78)
[2025-03-17] MEDS: ondansetron HCL 4 MG/2 ML VIAL IVPUSH (07:39)
[2025-03-17] MEDS: Acetaminophen 1,000 MG/100 ML PIGGYBACK 400 MG IV (07:39)
[2025-03-17 07:45] LABS: Appearance Urine Clear; Color Urine Yellow; Glucose Urine UA Negative (Negative); Leukocyte Esterase Urine Moderate (2+) (Negative); Nitrite Urine Negative (Negative); PH 6.5 (5.0-9.0); Specific Gravity - Urine 1.015 (1.005-1.025); UMIC TRIGGER UACC YES; Urine Blood Negative (Negative); Urine Ketones Negative (Negative); Urine Protein Negative (Neg-Trace)
[2025-03-17 07:47] LABS: Bacteria Urine Trace (None Seen); Hyaline Casts Urine 0-2 /LPF (0-2); RBC Urine 0-2 /HPF (0-2); UACC Culture Trigger YES
[2025-03-17 08:42] VITALS: BP 141/77; PULSE 102; RESP 16; TEMP 36.6; O2SAT 97
[2025-03-17] MEDS: iohexoL 350 MG/ML 100 ML INFUS..BTL IV (08:42)
[2025-03-17 09:35] VITALS: BP 141/77; PULSE 102; RESP 16; TEMP 36.6; O2SAT 97
== END 2025-03-17 09:37 | disposition home or self-care (01) ==
PROVIDERS: Emergency Provider Emergency Medicine Emergency Medical Services; PCP Family Medicine
DX: K29.00 Acute gastritis without bleeding (principal); R10.2 Pelvic and perineal pain; K59.00 Constipation, unspecified; R10.31 Right lower quadrant pain; Z79.899 Other long term (current) drug therapy
CPT/HCPCS: 36415; 74177; 80053; 81001; 83690; 85025; 87086; 96365; 96375; 99284; 99285; J0131; J2405; Q9967

== ENCOUNTER → 2025-03-17 08:14 | Outpatient (BNV) | payer OTHER, SELFPAY | PROVIDERS: Emergency Provider Emergency Medicine Emergency Medical Services; PCP Family Medicine; Visit Provider Radiology Diagnostic Radiology | DX: N20.0 Calculus of kidney (principal) | CPT/HCPCS: 74177 ==

== ENCOUNTER 2025-03-27 23:05 | Emergency (ER) | payer OTHER, SELFPAY ==
[2025-03-27 23:10] VITALS: BP 158/76; PULSE 97; RESP 16; TEMP 36.6; O2SAT 99; BMI 35.3
[2025-03-27 23:30] LABS: MANUAL DIFF FLAG NO
[2025-03-27 23:31] LABS: Basophils Percent Auto 0.2 % (0-2); Eosinophils Absolute Auto 0.1 X10*3/uL (0.0-0.4); Eosinophils Percent Auto 0.8 % (0-4); Hematocrit 37.2 % (37.0-47.0); Hemoglobin 12.3 g/dl (12.0-16.0); Imm Gran Abs Auto 0.02 X10*3/uL (0.00-0.03); Imm Gran Pct Auto 0.2 % (0.0-0.4); Lymphocytes Absolute Auto 2.7 X10*3/uL (1.2-4.9); Lymphocytes Percent Auto 26.8 % (20-40); Mean Corpuscular HGB Conc 33.1 g/dl (31.0-35.0); Mean Corpuscular Hemoglobin 28.3 pg (27.0-33.0); Mean Corpuscular Volume 85.7 fL (80.0-98.0); Mean Platelet Volume 10.3 fL (9.4-12.3); Monocytes Absolute Auto 0.8 X10*3/uL (0.1-1.2); Monocytes Percent Auto 8.5 % (2-11); Neutrophils Absolute Auto 6.3 x10*3/uL (2.0-8.3); Neutrophils Percent Auto 63.5 % (45-73); Platelet Count 215 X10*3/uL (160-400); Red Blood Count 4.34 X10*6/uL (4.20-5.50); Red Cell Distribution Width 13.1 % (11.0-16.0); White Blood Count 9.9 X10*3/uL (4.8-10.8)
[2025-03-27 23:41] LABS: Appearance Urine Cloudy; Color Urine Dark Yellow; Glucose Urine UA Negative (Negative); Leukocyte Esterase Urine Moderate (2+) (Negative); Nitrite Urine Negative (Negative); Specific Gravity - Urine 1.025 (1.005-1.025); UMIC TRIGGER UACC YES; Urine Blood Negative (Negative); Urine Ketones Trace mg/dL (Negative); Urine Protein Trace mg/dL (Neg-Trace)
[2025-03-27 23:48] LABS: Alanine Aminotransferase 23 U/L (0-31); Alkaline Phosphatase 83 U/L (39-117); Anion Gap 15 (12-20); Aspartate Amino Transferase 26 U/L (5-31); Bilirubin Total 0.4 mg/dL (0.0-1.0); Blood Urea Nitrogen 14 mg/dL (9-16); Calcium 8.6 mg/dL (8.4-10.2); Carbon Dioxide 25 mmol/L (22-29); Chloride 107 mmol/L (96-108); Creatinine Clr Calc Pharmacy 84.7; Estimated Glomerular Filt Rate > 60; Glucose Random 140 mg/dL (60-115); Potassium 3.5 mmol/L (3.3-5.1); Sodium 143 mmol/L (135-145); Total Protein 7.1 g/dL (6.5-8.0)
[2025-03-27 23:54] LABS: Bacteria Urine Trace (None Seen); Calcium Oxalate Crystals Urine Present; Hyaline Casts Urine 0-2 /LPF (0-2); RBC Urine 0-2 /HPF (0-2); UACC Culture Trigger YES
[2025-03-28 00:07] LABS: Influenza A PCR NEGATIVE (Negative); Influenza B PCR NEGATIVE (Negative); Resp Syncy Virus RNA Qual PCR NEGATIVE (Negative); SARS COV2 PCR INHOUSE NEGATIVE (Negative)
--- OUTSIDE RECORDS SUMMARY | 2025-03-28 00:25 | XMS_ITS | Clinical Summary ---
Author Organization [address] [facility] Address 175 [place] [address] Phone Care Team Providers Care Skid Road Man Name Role Phone Lorene Lugo DO Primary Care Provider [phone] Social History Tobacco Use Types Packs/Day Years Used Date Smoking Tobacco: Never Assessed Comments Unknown Sex and Gender Information Value Date Recorded Sex Assigned at Not on file Legal Sex Female 10:48 PM EST Gender Identity Not on file Sexual Orientation Not on file Plan of Treatment Upcoming Encounters Date Type Department Care Team ([facility] Contact Info) Description 04/12/2025 9:15 AM EDT Consult Orthopedic Surgery - [place] [address] [address] Eleuterio Santiago, DPM [address] [address] Health Maintenance Due Date Last Done Comments Breast Cancer Screening 1960 DTaP,Tdap,and Td Vaccines (1 - Tdap) 1977 Pneumococcal Vaccine: 50+ Ye ars (1 of 1 - PCV) 2008 Zoster Vaccines (1 of 2) 2008 COVID-19 Vaccine ( - 2023-2 5 season) 2024 Colorectal Cancer Screening: Colonoscopy 11/22/2024 Depression Screening 11/22/2024 Falls Risk Assessment 11/22/2024 Hepatitis C Screening 11/22/2024 Medicare Annual Wellness Visit 11/22/2024 Osteoporosis Screening (Bone Density Screening) 11/22/2024 Social Influencers of Health Screening 11/22/2024 Influenza Vaccine (Season Ended) 2025 RSV Immunization Adult Patie nts (1 - 1-dose 75+ series) 2033 HIB Vaccines Aged Out No longer eligi ble based on patient's age to complete this topic HPV Vaccines Aged Out No longer eligi ble based on patient's age to complete this topic Hepatitis A Vaccines Aged Out No long er eligible based on patient's age to complete this topic Hepatitis B Vaccines Aged Out No long er eligible based on patient's age to complete this topic IPV Vaccines Aged Out No longer eligi ble based on patient's age to complete this topic MMR Vaccines Aged Out No longer eligi ble based on patient's age to complete this topic Meningococcal ACWY Vaccine Aged Out N o longer eligible based on patient's age to complete this topic Meningococcal B Vaccine Aged Out No l onger eligible based on patient's age to complete this topic RSV Immunization Patients Un katalina 20 months Aged Out No longer eligible b ased on patient's age to complete this topic Varicella Vaccines Aged Out No longer eligible based on patient's age to complete this topic Insurance [employer] MEDICARE Member Subscriber Plan / Payer (Ef fective 2024-Present) Name:Cheryl Samson Relation to Subscriber:Self Name:Cheryl Samson Payer ID:[id number] Group ID:[id number] Type:Not on file Address: [place] [address] [address] MEDICAID - [place] Care Teams Skid [address] Man Relationship Specialty Start Date End Date Lorene Lugo DO [address] [place] [address] PCP - General Family Medicine 11/21/24
--- OUTSIDE RECORDS SUMMARY | 2025-03-28 00:25 | XMS_ITS | Encounter Summary ---
Author Organization [employer] Address [address] [place] [address] 7t [place] [address] Care Team Providers Care Nuclear Fuel Processing Technician Name Role Phone Lorene Lugo DO Primary Care Provider [phone] [phone] Keiko Bowman PharmD Unavailable Reason for Visit * Reason Comments Med Refill Encounter Details Date Type Department Care Team ([facility] st Contact Info) Description 08/14/2024 Refill [facility] CHC MED & PEDS [address] [place], [place] [phone] Ximena Florez FNP 505 [place], [place] [phone] Social History Tobacco Use Types Packs/Day Years Used Date Smoking Tobacco: Never Passive Smoke Exposure: Never Smokeless Tobacco: Never Alcohol Use Standard Drinks/Week Comments Never 0 (1 standard drink = 0.6 oz pur e alcohol) Depression Answer Date Recorded Patient Health Questionnaire-9 Score 0 08/25/2023 Housing Stability Answer Date Recorded What is your housing situation today? I have patricia iraheta 09/14/[address] you li ve. Do you have problems with any of the following? None of the above 09/14/2023 Food Insecurity Answer Date Recorded Within the past 12 months, y ou worried that your food would run out before you got money to buy more: Never True 09/14/2023 Within the past 12 months,th e food you bought just didn't last and you didn't have enough money to get more: Never True Transportation Answer Date Recorded In the past 12 months, has l ack of transportation kept you from medical appts, meetings, work or from getting things needed for daily living? No 09/14/2023 Utilities Answer Date Recorded In the past 12 months, has t he electric, gas, oil or water company threatened to shut off services in your home? No 09/14/2023 Depression Answer Date Recorded Patient Health Questionnaire-2 Score 0 08/25/2023 Comments Unknown Sex and Gender Information Value Date Recorded Sex Assigned at Female 09/29/2022 10:16 AM EDT Legal Sex Female 10:16 AM EDT Gender Identity Female 09/29/2022 10:16 AM EDT Sexual Orientation Don't know 09/29/2022 10 :16 AM EDT documented as of this encounter Plan of Treatment Upcoming Encounters Date Type Department Care Team (Late st Contact Info) Description 04/10/2025 9:30 AM EDT Medication Management [facility] MEDICINE [address] [place] [address] Keiko Bowman, PharmD [address] [place] [address] documented as of this encounter Goals Goal Patient Goal Type Associated Problems Recent Progress Patient-Stated? Author Blood Pressure < 140/90 Blood Pressure 128/70(2024 8:59 AM EST) No Dellogono, Alo, PharmD Record your blood pressure at least once per week Blood Pressure Worsening(11/2022 9:44 AM EDT) No Puia, Keiko, PharmD Hemoglobin A1c < 7 Result Component 6.6( 9:01 AM EST) No Dellogono, Alo, PharmD Record your blood sugar as directed Result Component On track( 023 9:44 AM EDT) No Puia Keiko, PharmD documented as of this encounter Visit Diagnoses Not on filedocumented in this encounter Additional Health Concerns Assessment Noted Time PHQ-9 Depression Total Score: 0 08/25/20 23 9:41 AM EDT documented as of this encounter Care Teams Nuclear Fuel Processing Technician Relationship Specialty Start Date End Date Lorene Lugo DO [address] [place], [place] [phone] PCP - General Family Medicine 11/30/18 Keiko Bowman, EdsonD [address] [place] [address] [place] [address] Pharmacist Internal Medicine 06/19/23 documented as of this encounter
--- OUTSIDE RECORDS SUMMARY | 2025-03-28 00:25 | XMS_ITS | Encounter Summary ---
Author Organization [employer] Address [address] [place] [address] 7t [place] [address] Care Team Providers Care Investment Advisor Name Role Phone Lorene Lugo DO Primary Care Provider [phone] Keiko Bowman PharmD Unavailable [phone] Reason for Visit * Reason Onset Date Comments Request For Order(s) 02/22/2024 Encounter Details Date Type Department Care Team (Late st Contact Info) Description 02/22/2024 Telephone [facility] MEDICINE [address] [place], [place] [phone] Lorene Lugo DO [address] [place], [place] [phone] Request For Order(s) Social History Tobacco Use Types Packs/Day Years [...] AM EDT documented as of this encounter Miscellaneous Notes * Telephone Encounter - Yolis Woodruff RN - 02/22/2024 3:57 PM EDT TC placed to pt [phone] in regards to below message. Pt reports she has already called [facility] to cancel the colonoscopy. Pt informed PCP is going to order the cologuard test and it will be mailed to her house. Pt advised if cologuard returns positive, pt will need to have colonoscopy performed. Pt verbalized understanding. * Telephone Encounter - Beth Massey - 02/22/2024 10:20 AM EDT Tc from pt requesting to get a at home colon guard. Pt is scheduled for a colonoscopy tomorrow (02/22) but will be cancelled due to pt not feeling well. Please contact pt at [phone] documented in this encounter Plan of Treatment Upcoming Encounters Date Type Department Care Team (Late st Contact Info) Description 04/10/2025 9:30 AM EDT Medication Management [facility] MEDICINE [address] [place], [place] [phone] Keiko Bowman, PharmD [address] [place] [address] documented as of this encounter Goals Goal Patient Goal Type Associated Problems Recent Progress Patient-Stated? Author Blood Pressure < 140/90 Blood Pressure 128/70(2024 8:59 AM EST) No Alo Freitas PharmDillon Record your blood pressure at least once per week Blood Pressure Worsening(11/2022 9:44 AM EDT) No Keiko Bowman PharmD Hemoglobin A1c < 7 Result Component 6.6( 9:01 AM EST) No Alo Freitas PharmDillon Record your blood sugar as directed Result Component On track( 023 9:44 AM EDT) No Keiko Bowman PharmD documented as of this encounter Visit Diagnoses Not on filedocumented in this encounter Additional Health Concerns Assessment Noted Time PHQ-9 Depression Total Score: 0 08/25/20 9:41 AM EDT documented as of this encounter Care Teams Investment Advisor Relationship Specialty Start Date End Date Lorene Lugo DO [address] [place] [address] PCP - General Family Medicine 11/30/18 Keiko Bowman PharmD [address] [place] [address] Pharmacist Internal Medicine 06/19/23 documented as of this encounter
--- OUTSIDE RECORDS SUMMARY | 2025-03-28 00:25 | XMS_ITS | Encounter Summary ---
Author Organization [employer] Address [address] [place] [address] 7t [place] [address] Care Team Providers Care Podiatrist Name Role Phone Lorene Lugo DO Primary Care Provider [phone] Puia, Keiko PharmD Unavailable Reason for Visit * Reason Comments Med Refill Encounter Details Date Type Department Care Team (Late st Contact Info) Description 02/09/2025 Refill [facility] MEDICINE [address] [place], [place] [phone] Puia, Keiko, PharmD [address] [place] [address] Social History Tobacco Use Types Packs/Day Years [...] encounter Miscellaneous Notes * Telephone Encounter - Keiko Bowman PharmD - 02/10/2025 10:03 AM EDT Outgoing call to pharmacy, confirmed that patient has RX for Mounjaro 5 mg (increase, as intended per last CDTM plan) waiting for machine operator picker. This request for 2.5 mg was sent in error. No action required. documented in this encounter Plan of Treatment Upcoming Encounters Date Type Department Care Team (Late st Contact Info) Description 04/10/2025 9:30 AM EDT Medication Management [facility] MEDICINE [address] [place] [address] Keiko Bowman PharmD [address] [place] [address] documented as of this encounter Goals Goal Patient Goal Type Associated Problems Recent Progress Patient-Stated? Author Blood Pressure < 140/90 Blood Pressure 128/70(2024 8:59 AM EST) No Alo Freitas PharmD Record your blood pressure at least once per week Blood Pressure Worsening(11/2022 9:44 AM EDT) No Keiko Bowman PharmD Hemoglobin A1c < 7 Result Component 6.6( 9:01 AM EST) No Alo Freitas PharmD Record your blood sugar as directed Result Component On track( 023 9:44 AM EDT) No Keiko Bowman PharmD documented as of this encounter Visit Diagnoses Not on filedocumented in this encounter Additional Health Concerns Assessment Noted Time PHQ-9 Depression Total Score: 0 08/25/20 23 9:41 AM EDT documented as of this encounter Care Teams Podiatrist Relationship Specialty Start Date End Date Lorene Lugo DO [address] [place] [address] PCP - General Family Medicine 11/30/18 Keiko Bowman PharmD [address] [place] [address] Pharmacist Internal Medicine 06/19/23 documented as of this encounter
--- OUTSIDE RECORDS SUMMARY | 2025-03-28 00:25 | XMS_ITS | Encounter Summary ---
Author Organization [employer] Address [address] [place] [address] 7t [place] [address] Care Team Providers Care Dumb Waiter Operator Name Role Phone Lorene Lugo DO Primary Care Provider [phone] Keiko Bowman PharmD Unavailable Reason for Visit * Reason Comments Med Refill Encounter Details Date Type Department Care Team ([facility] st Contact Info) Description 07/13/2024 Refill [facility] CHC MED & PEDS [address] [place], [place] [phone] Ximena Florez FNP 505 [place], [place] [phone] Social History Tobacco Use Types Packs/Day Years [...] Description 04/10/2025 9:30 AM EDT Medication Management [facility] MEDICINE [address] [place] [address] Keiko Bowman, PharmD 230 [place] [address] documented as of this encounter Goals Goal [...] documented as of this encounter Care Teams Dumb Waiter Operator Relationship Specialty Start Date End Date Lorene Lugo DO [address] [place], [place] [phone] PCP - General Family Medicine 11/30/18 Keiko Bowman, EdsonD [address] [place] [address] [place] [address] Pharmacist Internal Medicine 06/19/23 documented as of this encounter
--- OUTSIDE RECORDS SUMMARY | 2025-03-28 00:25 | XMS_ITS | Encounter Summary ---
Author Organization [employer] Address [address] [facility] 7t [place] [address] Care Team Providers Care Supervisor Asphalt Paving Name Role Phone Lorene Lugo DO Primary Care Provider [phone] Keiko Bowman PharmD Unavailable [phone] Reason for Visit * Reason Comments Med Refill Encounter Details Date Type Department Care Team (Late st Contact Info) Description 02/09/2025 Refill [facility] CHC MED & PEDS [address] [place], [place] [phone] Lorene Luog DO [address] [place], [place] [phone] Healthcare maintenance Social History Tobacco Use Types Packs/Day Years [...] Description 04/10/2025 9:30 AM EDT Medication Management [facility] MEDICINE [address] [place] [address] PuiaNaderKeiko, PharmD [address] [place] [address] documented as of this encounter Goals Goal [...] On track( 023 9:44 AM EDT) No Puia, Keiko, PharmD documented as of this encounter Visit Diagnoses Diagnosis Healthcare maintenance documented in this encounter Additional Health Concerns Assessment Noted Time PHQ-9 Depression Total Score: 0 08/25/20 23 9:41 AM EDT documented as of this encounter Care Teams Supervisor Asphalt Paving Relationship Specialty Start Date End Date Lorene Lugo DO [address] [place] [address] PCP - General Family Medicine 11/30/18 Keiko Bowman, Sumit [address] [place] [address] Pharmacist Internal Medicine 06/19/23 documented as of this encounter
--- OUTSIDE RECORDS SUMMARY | 2025-03-28 00:25 | XMS_ITS | Encounter Summary ---
Author Organization [employer] Address [address] [facility] 7t [place] [address] Care Team Providers Care Informatics Analyst Name Role Phone Lorene Lugo DO Primary Care Provider [phone] Keiko Bowman PharmD Unavailable Reason for Visit * Reason Comments Med Refill Encounter Details Date Type Department Care Team ([facility] st Contact Info) Description 09/24/2024 Refill [facility] CHC MED & PEDS [address] [place], [place] [phone] Lorene Lugo DO 230 [place], [place] [phone] Social History Tobacco Use Types Packs/Day Years [...] Description 04/10/2025 9:30 AM EDT Medication Management [facility] MEDICINE [address] [place] [address] Keiko Bowman PharmD [address] [place] [address] documented as of this encounter Goals Goal Patient Goal Type Associated Problems Recent Progress Patient-Stated? Author Blood Pressure < 140/90 Blood Pressure 128/70(2024 8:59 AM EST) No Dellogono Alo, PharmD Record your blood pressure at least once per week Blood Pressure Worsening(11/2022 9:44 AM EDT) No PuiaNaderKeiko, PharmD Hemoglobin A1c < 7 Result Component 6.6( 9:01 AM EST) No Dellogono Alo, PharmD Record your blood sugar as directed Result Component On track( 023 9:44 AM EDT) No Puia Keiko, PharmD documented as of this encounter Visit Diagnoses Not on filedocumented in this encounter Additional Health Concerns Assessment Noted Time PHQ-9 Depression Total Score: 0 08/25/20 23 9:41 AM EDT documented as of this encounter Care Teams Informatics Analyst Relationship Specialty Start Date End Date Lorene Lugo DO [address] [place] [address] PCP - General Family Medicine 11/30/18 Keiko Bowman, Sumit [address] [place] [address] Pharmacist Internal Medicine 06/19/23 documented as of this encounter
--- OUTSIDE RECORDS SUMMARY | 2025-03-28 00:25 | XMS_ITS | Encounter Summary ---
Author Organization [employer] Address [address] [place] [address] 7t [place] [address] Care Team Providers Care Senior Housekeeper Name Role Phone Lorene Lugo DO Primary Care Provider [phone] Keiko Bowman PharmD Unavailable Reason for Visit * Reason Comments Med Refill Encounter Details Date Type Department Care Team ([facility] st Contact Info) Description 08/12/2024 Refill [facility] CHC MED & PEDS [address] [place], [place] [phone] Ximena Florez FNP [address] [place], [place] [phone] Social History Tobacco Use Types Packs/Day Years [...] 9:30 AM EDT Medication Management [facility] MEDICINE [address] [place] [address] Keiko Bwoman, PharmD [address] [place] [address] documented as of this encounter Goals Goal [...] documented as of this encounter Care Teams Senior Housekeeper Relationship Specialty Start Date End Date Lorene Lugo DO 230 [place], [place] [phone] PCP - General Family Medicine 11/30/18 Keiko Bowman, EdsonD [address] [place] [address] [place] [address] Pharmacist Internal Medicine 06/19/23 documented as of this encounter
--- OUTSIDE RECORDS SUMMARY | 2025-03-28 00:25 | XMS_ITS | Encounter Summary ---
Author Organization [employer] Address [address] [place] [address] 7t [place] [address] Care Team Providers Care Director Of Sales Marketing Name Role Phone Lorene Lugo DO Primary Care Provider [phone] Keiko Bowman PharmD Unavailable [phone] Reason for Visit * Reason Comments Med Refill Encounter Details Date Type Department Care Team (Late st Contact Info) Description 12/28/2024 Refill [facility] MEDICINE [address] [place], [place] [phone] Lorene Lugo DO 230 [place], [place] [phone] Social History Tobacco Use Types Packs/Day Years [...] 9:30 AM EDT Medication Management [facility] MEDICINE [address] [place] [address] PuiaKeiko, PharmD 230 [place] [address] documented as of this encounter Goals Goal [...] documented as of this encounter Care Teams Director Of Sales Marketing Relationship Specialty Start Date End Date Lorene Lugo DO [address] [place] [address] PCP - General Family Medicine 11/30/18 Keiko Bowman, EdsonD [address] [place] [address] Pharmacist Internal Medicine 06/19/23 documented as of this encounter
--- OUTSIDE RECORDS SUMMARY | 2025-03-28 00:25 | XMS_ITS | Encounter Summary ---
Author Organization [employer] Address [address] [place] [address] 7 [place] [address] Care Team Providers Care Security Expert Name Role Phone Lorene Lugo DO Primary Care Provider [phone] Keiko Bowman PharmD Unavailable [phone] Encounter Details Date Type Department Care Team (Late st Contact Info) Description 12/27/2024 Orders Only [facility] [address] [place] [address] ProviderBelinda MD Social History Tobacco Use Types Packs/Day Years [...] 9:30 AM EDT Medication Management [facility] MEDICINE 230 [place], [place] [phone] Keiko Bowman PharmD [address] [place] [address] documented as of this encounter Goals Goal Patient Goal Type Associated Problems Recent Progress Patient-Stated? Author Blood Pressure < 140/90 Blood Pressure 128/70(2024 8:59 AM EST) No DellogonoBillyis, PharmD Record your blood pressure at least once per week Blood Pressure Worsening(11/2022 9:44 AM EDT) No PuiaNaderKeiko, PharmD Hemoglobin A1c < 7 Result Component 6.6( 9:01 AM EST) No DellogAlo shrestha, PharmD Record your blood sugar as directed Result Component On track( 023 9:44 AM EDT) No PuiaNaderKeiko, PharmD documented as of this encounter Procedures Procedure Name Priority Date/Time Associated Diagnosis Comments CT ABDOMEN PELVIS WO CONTRAST Routine 12/26/2024 1:32 PM EST documented in this encounter Results * CT Abdomen Pelvis w/o Contrast (12/26/2024 1:32 PM EST) Anatomical Region Laterality Modality Body, Pelvis, Abdomen Computed T omography us Historical Provider MD NICOLAS CT PROCEDURES Final R esult documented in this encounter Visit Diagnoses Not on filedocumented in this encounter Additional Health Concerns Assessment Noted Time PHQ-9 Depression Total Score: 0 08/25/20 9:41 AM EDT documented as of this encounter Care Teams Security Expert Relationship Specialty Start Date End Date Lorene Lugo DO [address] [place] [address] PCP - General Family Medicine 11/30/18 Keiko Bowman PharmD [address] [place] [address] Pharmacist Internal Medicine 06/19/23 documented as of this encounter
--- OUTSIDE RECORDS SUMMARY | 2025-03-28 00:25 | XMS_ITS | Encounter Summary ---
Author Organization [employer] Address [address] [facility] [address] [place] [address] Care Team Providers Care Business Services Manager Name Role Phone Lorene Lugo DO Primary Care Provider [phone] Keiko Bowman PharmD Unavailable [phone] Reason for Visit * Reason Onset Date Comments Appointment Request 02/01/2024 Encounter Details Date Type Department Care Team (Late st Contact Info) Description 02/01/2024 Telephone [facility] [address], [place] [phone] Lorene Lugo DO [address] [place], [place] [phone] Appointment Request Social History Tobacco Use Types Packs/Day Years [...] encounter Miscellaneous Notes * Telephone Encounter - Estrella Mcmahon - 02/01/2024 2:19 PM EST TC from pt requesting to make a DM follow up appt with PCP. Agricultural Services Director verify notes from last visit on 08/25/2023 pcp put appt should be around 12/25 but we can't schedule [place] appts. Agricultural Services Director advised someone will be calling to schedule appt. documented in this encounter Plan of Treatment Upcoming Encounters Date Type Department Care Team (Late st Contact Info) Description 04/10/2025 9:30 AM EDT Medication Management [facility] [address] [place] [address] Keiko Bowman PharmD [address] [place] [address] documented as of this encounter Goals Goal Patient Goal Type Associated Problems Recent Progress Patient-Stated? Author Blood Pressure < 140/90 Blood Pressure 128/70(2024 8:59 AM EST) No Alo Freitas PharmDillon Record your blood pressure at least once per week Blood Pressure Worsening(11/2022 9:44 AM EDT) No Keiko Bowman PharmDillon Hemoglobin A1c < 7 Result Component 6.6(02/28/202 5 9:01 AM EST) No Alo Freitas PharmD Record your blood sugar as directed Result Component On track( 023 9:44 AM EDT) No Keiko Bowman PharmD documented as of this encounter Visit Diagnoses Not on filedocumented in this encounter Additional Health Concerns Assessment Noted Time PHQ-9 Depression Total Score: 0 08/25/20 23 9:41 AM EDT documented as of this encounter Care Teams Business Services Manager Relationship Specialty Start Date End Date Lorene Lugo DO [address] [place] [address] PCP - General Family Medicine 11/30/18 Keiko Bowman PharmD [address] [place] [address] Pharmacist Internal Medicine 06/19/23 documented as of this encounter
--- OUTSIDE RECORDS SUMMARY | 2025-03-28 00:26 | XMS_ITS | Encounter Summary ---
Author Organization [facility] Address [address] [place] [address] [address] [place] [address] Care Team Providers Care Sales Team Recruiter Name Role Phone Lorene Lugo DO Primary Care Provider Dellogono Alo PharmD Unavailable Unavail able Puia, Keiko PharmD Unavailable [phone] Encounter Details Date Type Department Care Team (Late st Contact Info) Description 12/30/2022 Telephone [facility] [address] [place] [phone] Lorene Lugo DO [address] [place] [address] Social History Tobacco Use Types Packs/Day Years [...] Medication Management [facility] [address] [place] [phone] Puia, Keiko, PharmD [address] [place] [address] documented as of this encounter Visit Diagnoses Not on filedocumented in this encounter Care Teams Sales Team Recruiter Relationship Specialty Start Date End Date Lroene Lugo DO [address] [place] [address] PCP - General Family Medicine 11/30/18 Alo Freitas, EdsonD [address] [place] [address] Pharmacist Internal Medicine 02/11/23 06/18/23 Keiko Bowman PharmD [address] [place] [address] Pharmacist Internal Medicine 06/19/23 documented as of this encounter
--- OUTSIDE RECORDS SUMMARY | 2025-03-28 00:26 | XMS_ITS | Clinical Summary ---
Author Organization [employer] Address [address] [place] [address] [address] [place] [address] Care Team Providers Care Care Taker Name Role Phone Lorene Lugo DO Primary Care Provider [phone] Keiko Bowman PharmD Unavailable [phone] Allergies Active Allergy Reactions Criticality Noted Date Comments Goyo Inhibitors Cough Ibuprofen Rash Medium Other reaction(s): rash Other Reaction(s): Unknown Medications ascorbid acid ER (Vitamin C) 1000 MG ER tablet 1 tab by mouth daily OTC Active losartan (Cozaar) 50 MG tabletIndications:E ssential hypertension,Type 2 diabetes mellitus with diabetic microalbuminuria, without long-term current use of insulin ([facility]) Take 1 tablet (50 mg) by mouth Once daily. 90 tablet 3 024 Active glucose blood (FREESTYLE LITE) test stripIndications:Ty pe 2 diabetes mellitus with microalbuminuria, without long-term current use of insulin ([facility]) USE TO TEST BLOOD SUGAR TWICE DAILY 100 strip 11 024 Active acetaminophen (Tylenol 8 Hour) 650 MG ER tablet Take 1 tablet (650 mg) by mouth every 8 (eight) hours if needed for mild pain. Do not crush, chew, or split. 60 tablet 2 024 2024 Active baclofen (Lioresal) 10 MG tablet Take 1 tablet (10 mg) by mouth if needed in the morning, at noon, and at bedtime for muscle spasms. 60 tablet 2 024 Active Aspirin Low Dose 81 MG EC tabletIndications:T ype 2 diabetes mellitus with microalbuminuria, without long-term current use of insulin ([facility]) TAKE 1 TABLET BY MOUTH EVERY MORNING 90 tablet 3 025 Active polyethylene glycol, PEG, 3350 (Glycolax) 17 GM/SCOOP powderIndications:C onstipation, unspecified constipation type DISSOLVE AND MIX 17 GM INTO WATER. DRINK ONCE DAILY NEEDED FOR CONSTIPATION 238 g 5 025 Active Alcohol Swabs (Alcohol Prep) 70 % pads USE TWICE DAILY 100 each 025 Active docusate sodium (Colace) 100 MG capsule TAKE 1 CAPSULE(100 MG) BY MOUTH TWICE DAILY 180 capsule 3 025 Active Tirzepatide (Mounjaro) 5 MG/0.5ML solution auto-injector Inject 5 mg under the skin 1 (one) time per week. 2 mL 025 Active sertraline (Zoloft) 50 MG tablet Take 1 tablet (50 mg) by mouth Once per day. 90 tablet 3 025 Active cetirizine (ZyrTEC) 10 MG tablet TAKE 1 TABLET BY MOUTH EVERY MORNING 90 tablet 025 Active atorvastatin (Lipitor) 80 MG tablet Take 1 tablet (80 mg) by mouth Once per day. 90 tablet 1 025 Active gabapentin (Neurontin) 100 MG capsule Take 1 capsule (100 mg) by mouth at bedtime. 30 capsule 3 025 2025 Active cholecalciferol (Vitamin D-3) 50 MCG (1999 UT) tablet TAKE 1 TABLET BY MOUTH EVERY DAY 90 tablet 025 Active Multiple Vitamins-Minerals (Multi For Her 50+) tabletIndications:H ealthcare maintenance TAKE 1 TABLET BY MOUTH EVERY MORNING 90 tablet 3 025 Active FreeStyle lancetsIndications: Type 2 diabetes mellitus with microalbuminuria, without long-term current use of insulin ([facility]) USE TO TEST BLOOD SUGAR TWICE DAILY 200 each 11 025 Active omeprazole (PriLOSEC) [address] capsuleIndications: Chronic gastroesophageal reflux disease TAKE 1 CAPSULE BY MOUTH TWICE DAILY BEFORE BREAKFAST AND DINNER 180 capsule 025 Active FreeStyle lancetsIndications: Type 2 diabetes mellitus with microalbuminuria, without long-term current use of insulin (CMS/HCC) 1 each by Other route 2 times daily. USE TWICE DAILY 100 each 11 024 2024 Discontinued omeprazole (PriLOSEC) [address] capsuleIndications: Chronic gastroesophageal reflux disease TAKE 1 CAPSULE BY MOUTH TWICE DAILY BEFORE BREAKFAST AND DINNER 180 capsule 025 2024 Discontinued Active Problems Problem Noted Date Diagnosed Date Fatty liver 02/17/2024 Assessment & Plan (02/17/2024 2:54 PM EDT): -abd US with echogenic liver, no focal lesion SEP 2023 -LFTs nml OCT 2023 -check AFP next labs -Hep A immune -Hep B booster today Sleep-disordered breathing 02/17/2024 Assessment & Plan (02/17/2024 2:56 PM EDT): -re-referred for sleep study as never done Essential hypertension 05/20/2023 Assessment & Plan (02/17/2024 2:53 PM EDT): BP controlled -cont losartan daily -Cr/GFR and urine microalbumin nml OCT 2023 -there is nml EKG in chart -optho as above Chronic gastroesophageal reflux disease 01/16/20 Assessment & Plan (02/17/2024 2:55 PM EDT): Controlled -cont prilosec BID History of nephrolithiasis 01/16/2023 Assessment & Plan (02/17/2024 3:00 PM EDT): -renal US with no hydronephrosis and bilateral, non-obstructing renal calculi JUL 2023 -f/u with urology as scheduled, due JUL 2024 Anxiety 01/16/2023 Assessment & Plan (02/17/2024 2:55 PM EDT): -she denies any SI/HI -she has the number for crisis -cont zoloft daily -she declines referral to therapist Mitral valve regurgitation 11/05/2015 Assessment & Plan (02/17/2024 2:55 PM EDT): ECHO with nml EF, mild MR, no significant change from prior March 2023 -referred for repeat Type 2 diabetes mellitus 11/05/2015 Assessment & Plan (02/17/2024 2:52 PM EDT): A1c at goal -she agrees to trial trulicity weekly, reviewed potential SEs with pt -advised stop jardiance daily -cont lifestyle modifications -cont regular FS monitoring -f/u with [facility] pharmacist as scheduled -cont aspirin, statin and ARB daily -s/p optho eval with Dr. Jara 2023 for annual f/u, will get copy of recent eval -nml monofilament exam April 2018, repeat next visit* Vitamin D deficiency 11/05/2015 Chronic constipation 10/03/2015 Assessment & Plan (02/17/2024 2:56 PM EDT): Sx unchanged -encouraged increased fiber, water, fruits, and vegetables -encouraged colace and fiber supplementation BID -cont senna nightly -cont miralax daily as needed -colonoscopy scheduled -f/u with GI as scheduled Anemia 10/03/2015 Hyperlipidemia 10/03/2015 Assessment & Plan (02/17/2024 2:53 PM EDT): LDL near-goal OCT 2023 -cont lipitor nightly with fish oil supplementation Microalbuminuria 10/03/2015 BMI 39.0-39.9,adult 10/03/2015 Resolved Problems Problem Noted Date Diagnosed Date Resolved Date Suprapubic pain 06/19/2023 08/25/2023 Assessment & Plan (06/19/2023 12:34 PM EDT): Pt w reported 1 week of SP pain after urination but improving ,denies other symptoms ,stable constipation improving w current meds and vaginal discharge appears normal Here UA only trace LE ,rest neg -will do Ucx and sureswab -self obtained -x now px pyridium x 2 days -tylenol prn -alarm signs and symptoms discussed Encounters Date Type Department Care Team Description 03/27/2025 Orders Only GENERIC EXTERNAL DATA DEPARTMENT Provider, Generic External Data 03/17/2025 Orders Only GENERIC EXTERNAL DATA DEPARTMENT Provider, Generic External Data 03/16/2025 Telephone [facility] [address] [place] [phone] Lorene Lugo DO Nurse Triage 03/10/2025 Refill [facility] [address] [place] [address] Lorene Lugo DO Chronic gastroesophageal reflux disease 02/27/2025 Refill [facility] [address] [place] [address] Lorene Lugo DO Type 2 diabetes mellitus with microalbuminuria, without long-term current use of insulin (CMS/HCC) 02/15/2025 Telephone [facility] [address] [place] [phone] Lorene Lugo DO ER Follow-up 02/14/2025 Orders Only GENERIC EXTERNAL DATA DEPARTMENT Provider, Generic External Data 02/09/2025 Refill [facility] [address] [place] [phone] Keiko Bowman, PharmD 02/09/2025 Refill [facility] [address] [place] [address] Lorene Lugo DO Healthcare maintenance 02/09/2025 Refill [facility] [address] [place] [address] Lorene Lugo DO Healthcare maintenance 01/27/2025 9:00 AM EST Office Visit [facility] [address] [place] [id number] Lorene Lugo DO Type 2 diabetes mellitus with diabetic microalbuminuria, without long-term current use of insulin ([facility]) (Primary Dx); Essential hypertension; Other hyperlipidemia; Fatty liver; Anxiety; Mitral valve insufficiency, unspecified etiology; Chronic gastroesophageal reflux disease; Chronic constipation; Sleep-disordered breathing; History of nephrolithiasis; Left leg pain; Healthcare maintenance 01/27/2025 Travel 01/24/2025 Travel 01/13/2025 Refill [facility] [address] [place] [address] Jayne Richardson MD 01/10/2025 Refill [facility] [address] [place] [address] Lorene Lugo, 01/10/2025 Travel 01/04/2025 Refill [facility] [address] [place] [address] Lorene Lugo, 12/28/2024 Refill [facility] [address] [place] [address] Lorene Lugo, 12/28/2024 Refill [facility] [address] [place] [address] Lorene Lugo, from Last 3 Months Immunizations Name Administration Dates Next Due Hep B, adult 02/17/2024, 5,08/28/2014,07/18 Influenza Injectable Quadriv alant Preservative Free IIV4 MDCK 09/03/2022,09/02/2021 Influenza injectable quadriv alent IIV4 with preservative 09/29/2018,09/10/2016,09/11/2015 Influenza injectable quadriv alent preservative free 08/25/2023,08/23/2020,08/30/2019,09/24 Influenza, High Dose Seasona l, Preservative Free 10/07/2024 Influenza, IIV3, injectable 11/30/2023,0 08/28/2014,08/14/2011,09/11,10/07/2007,09/24/2006,10/28/2005 ,10/07/2004,09/19/2003,09/29/2002,10/01 Influenza, Split (incl. shravan fied surface antigen) 09/16/2013,09/03/2012 Pfizer Covid-19 Vaccine 12+ 12/17/2021,,05/09/2021 Pneumococcal Conjugate PCV 20 03/11/2023 Pneumococcal Polysaccharide PPSV23 02/04/2011, RSV Bivalent 11/11/2023 TD (adult), 2 Lf tetanus tox oid, preservative free, adsorbed 08/02/2021,05/06/2002 Tdap 02/04/2011 Zoster, Recombinant 04/18/2019,02/14/2019 Social History Tobacco Use Types Packs/Day Years Used Date Smoking Tobacco: Never Passive Smoke Exposure: Never Smokeless Tobacco: Never Tobacco Cessation:Counseling Given: Not Answered Alcohol Use Standard Drinks/Week Comments Never 0 [...] Don't know 09/29/2022 10 :16 AM EDT Last Filed Vital Signs Vital Sign Reading Time Taken Comments Blood Pressure 128/70 01/27/2025 8:59 AM EST Pulse 78 01/27/2025 8:59 AM EST Temperature 37.1 ??C (98.7 ??F) 01/27/2025 8:59 AM ES T Respiratory Rate 18 01/27/2025 8:59 AM EST Oxygen Saturation 98% 06/20/2024 9:08 AM EDT Inhaled Oxygen Concentration - - Weight 91.4 kg (201 lb 9.6 oz) 01/27/2025 8:59 A M EST Height 154.9 cm (5' 1 ) 01/27/2025 8:59 AM EST Body Mass Index 38.09 01/27/2025 8:59 AM EST Plan of Treatment Upcoming Encounters Date Type Department Care Team (Late st Contact Info) Description 04/10/2025 9:30 AM EDT Medication Management [facility] [address] [place], [place] [phone] Keiko Bowman, PharmD [address] [place] [address] Health Maintenance Due Date Last Done Comments CT Colonography 1960 FIT 1960 FOBT 1960 Sigmoidoscopy 1960 Diabetes: Foot Exam 1968 Eye Exam 1968 Alcohol/Substance Use Screening 1970 Hepatitis A Vaccines (1 of 2 - Risk 2-dose series) 1977 COVID-19 Vaccine ( season) 2024 12/17/2021, 05/30/2021, 05/09/2021 Depression Screening 08/25/2024 08/25/2023, 08/25/20 23 SDOH Screening 08/25/2024 08/25/2023 Colonoscopy 12/13/2024 12/13/2014 Diabetes: Hemoglobin A1C 07/27/2025 025, 01/10/2025, 10/21/2024, Additional history exists Mammogram 09/15/2025 09/15/2024, 08/30, 09/08/2023, Additional history exists Lipid Panel 10/21/2025 10/21/2024, 1202/2023, 01/23/2023, Additional history exists Tobacco Screening 10/21/2025 10/21/2024 Colorectal Cancer Screening 03/04/2027 FIT DNA/Cologuard 03/04/2027 03/04/2024 DTaP/Tdap/Td Vaccines (3 - Td or Tdap) 08/02/2031 08/02/2021, 02/04/2011, 05/06/2002 Zoster Vaccines Completed 04/18/2019, 02/14/2019 Cervical Cancer Screening Discontinued HPV/Cotest Discontinued 01/16/2023, 01/01, 11/21/2016 Pap Smear Discontinued 01/16/2023 Hepatitis C Screening Completed 01/23/2023, 020 Pneumococcal Vaccine: 50+ Years Completed 03/11/2023, 02/04/2011, 05/06/2002 RSV Patients and Patients Aged 60 years or older Completed 11/11/2023 Hepatitis B Vaccines Completed 02/17/2024, 01/17/2015, 08/28/2014, Additional history exists Influenza Vaccine Completed 10/07/2024, , 08/25/2023, Additional history exists HIB Vaccines Aged Out No longer eligi ble based on patient's age to complete this topic HPV Vaccines Aged Out No longer eligi ble based on patient's age to complete this topic IPV Vaccines Aged Out No longer eligi ble based on patient's age to complete this topic Meningococcal Vaccine Aged Out No delano fatimah eligible based on patient's age to complete this topic RSV under 20 months Aged Out No longe r eligible based on patient's age to complete this topic Rotavirus Vaccines Aged Out No longer eligible based on patient's age to complete this topic Goals Goal Patient Goal Type Associated Problems Recent Progress Patient-Stated? Author Blood Pressure < 140/90 Blood Pressure 128/70(2024 8:59 AM EST) No Alo Freitas, PharmD Record your blood pressure at least once per week Blood Pressure Worsening(11/2022 9:44 AM EDT) No Keiko Bowman, PharmDillon Hemoglobin A1c < 7 Result Component 6.6( 9:01 AM EST) No Alo Freitas, PharmDillon Record your blood sugar as directed Result Component On track( 023 9:44 AM EDT) No Keiko Bowman PharmDillon Procedures Procedure Name Priority Date/Time Associated Diagnosis Comments URINALYSIS, COMPLETE, WITH REFLEX TO CULTURE Routine 03/27/2025 11:36 PM EDT COMPREHENSIVE METABOLIC PANEL Routine 03/27/2025 11:26 PM EDT CBC WITH AUTO DIFFERENTIAL Routine 03/27/2025 11:26 PM EDT SARS COV2/INFLUENZA A/B AND RSV RNA QL NAAT Routine 03/27/2025 11:[address] ABDOMEN PELVIS W CONTRAST Routine 03/17/2025 8:22 AM EDT URINALYSIS, COMPLETE, WITH REFLEX TO CULTURE Routine 03/17/2025 7:36 AM EDT COMPREHENSIVE METABOLIC PANEL Routine 03/17/2025 4:08 AM EDT CBC WITH AUTO DIFFERENTIAL Routine 03/17/2025 4:08 AM EDT CULTURE, URINE, ROUTINE Routine 03/17/2025 12:00 AM EDT URINALYSIS, COMPLETE Routine 02/14/2025 3:51 AM EDT COMPREHENSIVE METABOLIC PANEL Routine 02/14/2025 3:48 AM EDT CBC WITH AUTO DIFFERENTIAL Routine 02/14/2025 3:48 AM EDT SARS COV2/INFLUENZA A/B AND RSV RNA QL NAAT Routine 02/14/2025 3:44 AM EDT STREP A NUCLEIC ACID Routine 02/14/2025 3:44 AM EDT POCT GLUCOSE Routine 01/27/2025 9:02 AM EST Type 2 diabetes mellitus with diabetic microalbuminuria, without long-term current use of insulin ([facility]) POCT GLYCOSYLATED HEMOGLOBIN (HGB A1C) Routine 01/27/2025 9:01 AM EST Type 2 diabetes mellitus with diabetic microalbuminuria, without long-term current use of insulin ([facility]) POCT GLYCATED HEMOGLOBIN, TOTAL Routine 01/10/2025 9:20 AM EST Type 2 diabetes mellitus with diabetic microalbuminuria, without long-term current use of insulin (CMS/HCC) LIPID PANEL, STANDARD Routine 10/21/2024 10:04 AM EST Type 2 diabetes mellitus with diabetic microalbuminuria, without long-term current use of insulin (CMS/HCC) BI MAMMOGRAM SCREENING TOMOSYNTHESIS BILATERAL Routine 09/15/2024 9:52 AM EDT LAB COLOGUARD?? COLON CANCER SCREEN Routine 03/04/2024 3:00 PM EDT Colon cancer screening HEPATITIS C AB W/RFL RNA, PCR W/RFL GENOTYPE,LIPA Routine 01/23/2023 8:47 AM EST Type 2 diabetes mellitus with microalbuminuria, without long-term current use of insulin (CMS/HCC) THINPREP PAP, HPV MRNA E6/E7 RFX HPV 16,18/45, CHLAMYDIA/N.GONORRHOE AE Routine 01/16/2023 10:19 AM EST Encounter for gynecological examination without abnormal finding COLONOSCOPY Routine 12/13/2014 from Last 3 Months or Most Recently Relevant to Health Maintenance Results * (ABNORMAL) Urinalysis, Complete, with Reflex to Culture (03/27/2025 11:36 PM EDT) Only the most recent of2 resultswithin the time period is included. Color Urine Dark Yellow [facility] Appearance Urine Cloudy [facility] PH 6.0 5.0 - 9.0 [facility] Glucose Urine UA Negative Negative mg/dL [facility] Urine Blood Negative Negative [facility] Specific [place] - Urine 1.025 1.005 - 1.025 [facility] Urine Protein Trace Neg-Trace mg/dL [facility] Urine Ketones Trace Negative mg/dL [facility] Nitrite Urine Negative Negative [facility] Leukocyte Esterase Urine Moderate (2+)(A) Negative [facility] RBC Urine 0-2 0 - 2 /HPF [facility] Urine WBC 6-10 0 - 5 /HPF [facility] Urine Squamous Epithelial Cell 11-20 0 - 2 /HPF [facility] CALCIUM OXALATE CRYSTAL, UR Present [facility] Urine Bacteria Trace None Seen [facility] Hyaline Casts, Urine 0-2 0 - 2 /LPF [facility] 03/27/2025 11:3 6 PM EDT 03/27/2025 11:43 PM EDT Narrative [facility] - 03/27/2025 11:56 PM EDT [id number], Clean Catch us Generic External Data Provider LAB URINE ORDERAB LES Final Result [facility] [address] [place] [address] [phone] * SARS-CoV-2 RNA, Influenza A/B, and RSV RNA, Ql NAAT (03/27/2025 11:26 PM EDT) Only the most recent of2 resultswithin the time period is included. Influenza A PCR NEGATIVE Negative [facility] Influenza B PCR NEGATIVE Negative [facility] Resp Syncy Virus RNA Qual PCR NEGATIVE Negative [facility] SARS COV2 PCR NEGATIVE Negative [facility] Comment:All test results mus t be correlated with clinical findings.Negative results do not preclude SARS-CoV2, influenza Avirus, influenza B virus and/or RSV infectionand should not be used as the sole basis for treatment orother patient management decisions. Negative results must becombined with clinical observations, patient history, andepidemiological information.This test has not been evaluated for monitoring treatment ofinfection.This test has been authorized by the FDA under an EmergencyUse Authorization (EUA) for use by authorized laboratories.Testing performed on the Palmap GeneXpert utilizingreal-time RT-PCR.All SARS CoV2 and positive influenza A/B results arereported to [facility]. 03/27/2025 11:2 6 PM EDT 03/27/2025 11:28 PM EDT us Generic External Data Provider LAB MICROBIOLOGY - GENERAL ORDERABLES Final Result [facility] [address] [place] [address] [phone] * CBC auto differential (03/27/2025 11:26 PM EDT) Only the most recent of3 resultswithin the time period is included. White Blood Count 9.9 4.8 - 10.8 X10*3/uL [facility] Red Blood Count 4.34 4.20 - 5.50 X10*6/uL [facility] Hemoglobin 12.3 12.0 - 16.0 g/dl [facility] Hematocrit 37.2 37.0 - 47.0 % [facility] Mean Corpuscular Volume 85.7 80.0 - 98.0 fL [facility] Mean Corpuscular Hemoglobin 28.3 27.0 - 33.0 pg [facility] Mean Corpuscular HGB Conc 33.1 31.0 - 35.0 g/dl [facility] Red Cell Distribution Width 13.1 11.0 - 16.0 % [facility] Platelet Count 215 160 - 400 X10*3/uL [facility] Mean Platelet Volume 10.3 9.4 - 12.3 fL [facility] Neutrophils Percent Auto 63.5 45 - 73 % [facility] Imm Gran Pct Auto 0.2 0.0 - 0.4 % [facility] Lymphocytes Percent Auto 26.8 20 - 40 % [facility] Monocytes Percent Auto 8.5 2 - 11 % [facility] Eosinophils Percent Auto 0.8 0 - 4 % [facility] Basophils Percent Auto 0.2 0 - 2 % [facility] NRBC Pct Auto 0.0 0.0 - 0.2 /100WBC [facility] Neutrophils Absolute Auto 6.3 2.0 - 8.3 x10*3/uL [facility] Imm Gran Abs Auto 0.02 0.00 - 0.03 X10*3/uL [facility] Lymphocytes Absolute Auto 2.7 1.2 - 4.9 X10*3/uL [facility] Monocytes Absolute Auto 0.8 0.1 - 1.2 X10*3/uL [facility] Eosinophils Absolute Auto 0.1 0.0 - 0.4 X10*3/uL [facility] Basophils Absolute Auto 0.0 0.0 - 0.2 X10*3/uL [facility] NRBC Abs Auto 0.000 0.0 - 0.012 X10*3/uL [facility] 03/27/2025 11:2 6 PM EDT 03/27/2025 11:29 PM EDT us Generic External Data Provider LAB BLOOD ORDERAB LES Final Result [facility] [address] [place] [phone] * (ABNORMAL) Comprehensive Metabolic Panel (03/27/2025 11:26 PM EDT) Only the most recent of3 resultswithin the time period is included. Sodium 143 135 - 145 mmol/L [facility] Potassium 3.5 3.3 - 5.1 mmol/L [facility] Chloride 107 96 - 108 mmol/L [facility] Carbon Dioxide 25 22 - 29 mmol/L [facility] Anion Gap 15 12 - 20 [facility] Urea Nitrogen (BUN) 14 9 - 16 mg/dL [facility] Creatinine, Serum 0.62 0.5 - 1.4 mg/dL [facility] Creatinine Clr Calc Pharmacy 84.7 [facility] Comment:Provided height and weight: 152.4 cm,82.1 kg.eGFR (calculated from the MDRD study equation) and eCrCl(calculated from the Cockcroft-Gault equation) are based ondifferent parameters and may not yield comparable results.If eCrCl result is absurd, please check patient'sheight/weight. Estimated Glomerular Filt Rate >60 [facility] Comment:Chronic Kidney Disea se: Estimated GFR < 60 mL/min/1.58o0Djprgi Kidney Disease: Estimated GFR < 15 mL/min/1.73m2 Glucose 140(H) 60 - 115 mg/dL [facility] Calcium 8.6 8.4 - 10.2 mg/dL [facility] Bilirubin, Total 0.4 0.0 - 1.0 mg/dL [facility] Aspartate Amino Transferase 26 5 - 31 U/L [facility] Alanine Aminotransferase 23 0 - 31 U/L [facility] Total Protein 7.1 6.5 - 8.0 g/dL [facility] Albumin Level 4.0 3.5 - 5.0 g/dL [facility] Alkaline Phosphatase 83 39 - 117 U/L [facility] 03/27/2025 11:2 6 PM EDT 03/27/2025 11:29 PM EDT us Generic External Data Provider LAB BLOOD ORDERAB LES Final Result [facility] [address] [place] [address] [phone] * CT Abdomen Pelvis w/ Contrast (03/17/2025 8:22 AM EDT) Anatomical Region Laterality Modality Body, Pelvis, Abdomen Computed T omography 03/17/2025 8:22 AM EDT Narrative 03/17/2025 8:59 AM EDT ? [facility] ?[address] [facility] ?[place] [address] ? CT Scan Report ? Signed ? Patient: Chapin,Cheryl I ?MR#: [id number] ?? 96 ? : 1960 ?Acct:[id number] ? Age/Sex: 64 / F ?ADM Date: 04/18/25 ? Loc: HO.ED ? Attending Dr: ? Ordering Physician: Ethan Lester MD ?? Date of Service: 03/17/25 ?? Procedure(s): CT abdomen pelvis w IV con ?? Accession Number(s): [id number] ? cc: Lorene Lugo DO; Ethan Lester MD ? Report Number: ?? [id number]: Total DLP = ??707.00 mGy-cm ?? EXAMINATION: ??CT ABDOMEN PELVIS WITH IV CONTRAST ? HISTORY: RLQ pain, R/O appy ? COMPARISON: Comparison is made with the prior examination dated ?? 04/12/2016. ? TECHNIQUE: CT scan of the abdomen and pelvis was performed following ?? administration of 85 mL Omnipaque 350 using standard departmental ?? protocol. Coronal and sagittal reformatted images were generated and ?? reviewed. ??Oral contrast material was not administered at the request ?? of the referring physician. ? This CT exam was performed with one or more of the following dose ?? reduction techniques: automated exposure control, adjustment of the mA ?? and/or kV according to patient size, use of iterative reconstruction ?? technique. ? DLP: 707 mGy-cm ? FINDINGS: ? LOWER CHEST: The visualized lung bases are clear. There is no pleural ?? effusion. ? CARDIOVASCULATURE: The heart is normal in size. ??There is no ?? pericardial effusion. ? LIVER: ??The liver is normal in size and contour. ??No liver mass is ?? identified. ??The hepatic and portal veins are patent. ? GALLBLADDER / BILE DUCTS: ??The gallbladder is unremarkable. There is no ?? intra or extrahepatic biliary ductal dilatation. ? SPLEEN: The spleen is normal in size. No focal splenic lesion is ?? identified. ? PANCREAS: The pancreas is unremarkable in appearance. ? ADRENAL GLANDS: Within normal limits. ? KIDNEYS/RETROPERITONEUM: There is a 6 mm nonobstructing calculus in the ?? interpolar region of the right kidney. A 3 mm nonobstructing calculus ?? is seen at the lower pole of the left kidney. There is no ?? hydronephrosis. ??No renal masses are identified. ? LYMPH NODES: ??There are mildly prominent mesenteric lymph nodes with ?? associated slight mesenteric haziness without change. No para-aortic ?? lymphadenopathy is seen. ? VASCULATURE: ??The abdominal aorta is normal in caliber. ? MESENTERY/PERITONEUM: No free fluid. No masses. ??There is no free ?? intraperitoneal gas. ? STOMACH: ??The stomach is collapsed, limiting evaluation. ? SMALL BOWEL: ?? The small bowel is normal in caliber. ? COLON: ??The colon is unremarkable. ? APPENDIX: ??Normal. ? URINARY BLADDER/PELVIC ORGANS: The urinary bladder is unremarkable. ? The uterus and ovaries are unremarkable. ? BONES / SOFT TISSUES: ??No suspicious bony or soft tissue abnormalities. ? CT/CT abdomen pelvis w IV con ?? IMPRESSION: ? 1. A normal appendix is visualized. ? 2. Bilateral nephrolithiasis as described, without evidence of ureteral ?? obstruction. ? Electronically signed by: ??Tung King MD ??03/17/2025 08:56 AM EDT ? Dictated By: ?Tung King MD ? Signed By: ?<Electronically signed by Tung King MD in OV> ?03/17/25 0856 ? DD/ 0822 ? TD/TT: 03/17/25 0839 ? [employer] Compounder: ? Procedure Note Chante Joe - 03/17/[address] [place] [address] [address] Scan Report Signed Patient: Cheryl Samson IMR#: [id number] 96 : 9Acct:[id number] Age/Sex: 64 / FADM Date: 03/17/25 Loc: HO.ED Attending Dr: Ordering Physician: Ethan Lester MD Date of Service: 03/17/25 Procedure(s): CT abdomen pelvis w IV con Accession Number(s): [id number] cc: Jurcsak,Lorene Ethan Jerez MD Report Number: [id number]: Total DLP = 707.00 mGy-cm EXAMINATION: CT ABDOMEN PELVIS WITH IV CONTRAST HISTORY: RLQ pain, R/O appy COMPARISON: Comparison is made with the prior examination dated 04/12/2016. TECHNIQUE: CT scan of the abdomen and pelvis was performed following administration of 85 mL Omnipaque 350 using standard departmental protocol. Coronal and sagittal reformatted images were generated and reviewed. Oral contrast material was not administered at the request of the referring physician. This CT exam was performed with one or more of the following dose reduction techniques: automated exposure control, adjustment of the mA and/or kV according to patient size, use of iterative reconstruction technique. DLP: 707 mGy-cm FINDINGS: LOWER CHEST: The visualized lung bases are clear. There is no pleural effusion. CARDIOVASCULATURE: The heart is normal in size. There is no pericardial effusion. LIVER: The liver is normal in size and contour. No liver mass is identified. The hepatic and portal veins are patent. GALLBLADDER / BILE DUCTS: The gallbladder is unremarkable. There is no intra or extrahepatic biliary ductal dilatation. SPLEEN: The spleen is normal in size. No focal splenic lesion is identified. PANCREAS: The pancreas is unremarkable in appearance. ADRENAL GLANDS: Within normal limits. KIDNEYS/RETROPERITONEUM: There is a 6 mm nonobstructing calculus in the interpolar region of the right kidney. A 3 mm nonobstructing calculus is seen at the lower pole of the left kidney. There is no hydronephrosis. No renal masses are identified. LYMPH NODES: There are mildly prominent mesenteric lymph nodes with associated slight mesenteric haziness without change. No para-aortic lymphadenopathy is seen. VASCULATURE: The abdominal aorta is normal in caliber. MESENTERY/PERITONEUM: No free fluid. No masses. There is no free intraperitoneal gas. STOMACH: The stomach is collapsed, limiting evaluation. SMALL BOWEL: The small bowel is normal in caliber. COLON: The colon is unremarkable. APPENDIX: Normal. URINARY BLADDER/PELVIC ORGANS: The urinary bladder is unremarkable. The uterus and ovaries are unremarkable. BONES / SOFT TISSUES: No suspicious bony or soft tissue abnormalities. CT/CT abdomen pelvis w IV con IMPRESSION: 1. A normal appendix is visualized. 2. Bilateral nephrolithiasis as described, without evidence of ureteral obstruction. Electronically signed by: Tung King MD 03/17/2025 08:56 AM EDT RP Dictated By: Tung King MD Signed By: <Electronically signed by Tung King MD in OV> 03/17/25 0856 DD/ TD/TT: 03/17/25 0839 [employer] Compounder: [facility] External Provider IMG CT PROCEDURES Edited Result - Final * Culture, Urine, Routine (03/17/2025 12:00 AM EDT) Urine Urine specimen obtained by clean catch procedure / Unknown 03/17/2025 03/17/2025 Comment:UACC Narrative [facility] - 03/19/2025 11:18 AM EDT Urine Culture Report Result Urine Culture 10,000 to 50,000 cfu/ml Urine Culture Mixed bacterial meenu characteristic of Urine Culture urogenital contamination. Specimen Source: Urine clean catch Generic External Data Provider LAB MICROBIOLOGY - GENERAL ORDERABLES Final Result [facility] [address] [place] [phone] * (ABNORMAL) Urinalysis Complete (02/14/2025 3:51 AM EDT) Color Urine Yellow [facility] Appearance Urine Cloudy [facility] PH 7.0 5.0 - 9.0 [facility] Glucose Urine UA Negative Negative mg/dL [facility] Urine Blood Negative Negative [facility] Specific [place] - Urine 1.010 1.005 - 1.025 [facility] Urine Protein Negative Neg-Trace mg/dL [facility] Urine Ketones Negative Negative mg/dL [facility] Nitrite Urine Negative Negative [facility] Leukocyte Esterase Urine Small (1+)(A) Negative [facility] RBC Urine 0-2 0 - 2 /HPF [facility] Urine WBC 0-5 0 - 5 /HPF [facility] Urine Squamous Epithelial Cell 0-2 0 - 2 /HPF [facility] Other Crystals Urine Present [facility] Urine Bacteria None Seen None Seen [facility] Hyaline Casts, Urine 0-2 0 - 2 /LPF [facility] 02/14/2025 3:51 AM EDT 02/14/2025 3:59 AM EDT us Generic External Data Provider LAB URINE ORDERAB LES Final Result Performing Organization Address [facility] Co de Phone Number [facility] [address] [place] [phone] * Strep A Nucleic Acid (02/14/2025 3:44 AM EDT) IDNOW SERIAL# [id number] [facility] Strep A Nucleic Acid Negative Negative [facility] Comment:All test results mus t be correlated with clinical findings.This test has not been evaluated for monitoring treatment ofinfection.Additional follow-up testing using the culture method isrequired if the result is negative and clinical symptomspersist, or in the event of an acute rheumatic feveroutbreak. 02/14/2025 3:44 AM EDT 02/14/2025 3:59 AM EDT us Generic External Data Provider LAB MICROBIOLOGY - GENERAL ORDERABLES Final Result Performing Organization Address [facility]/ZIP Co de Phone Number [facility] [address] [place] [phone] * POCT glucose manually resulted (01/27/2025 9:02 AM EST) Glucose Blood, POC 187 60 - 200 mg/dL QC Media Lot # [id number] Lot# Expiration Date [id number] Blood Capillary blood specimen / Unknown 01/27/2025 9:02 AM EST Lorene Lugo DO POINT OF CARE TEST ENTER/TANNER T ORDERABLES Final Result * (ABNORMAL) POCT glycosylated hemoglobin (Hgb A1c) (01/27/2025 9:01 AM EST) Hemoglobin A1C 6.6(A) 4.0 - 6.0 % QC Media Lot # [id number] Lot# Expiration Date [id number] Blood Capillary blood specimen / Unknown 01/27/2025 9:01 AM EST Lorene Lugo DO POINT OF CARE TEST ENTER/TANNER T ORDERABLES Final Result * (ABNORMAL) POCT HGB A1C (01/10/2025 9:20 AM EST) Pathologist [facility] Hemoglobin A1C 6.5(A) 4.0 - 6.0 % QC Media Lot # [id number] Blood 01/10/2025 9:20 AM EST Lorene Lugo DO POINT OF CARE TEST ENTER/TANNER T ORDERABLES Final Result * (ABNORMAL) Lipid Panel, Standard (10/21/2024 10:04 AM EST) Triglycerides 131 <150 mg/dL [facility] Comment:Desirable Triglyceri de: less than 150 mg/dLBorderline High Triglyceride 150-199 mg/dLHigh Triglyceride: 200-499 mg/dLVery High Triglyceride: greater than or equal to 5OO mg/dL Cholesterol 170 <200 mg/dL [facility] Comment:Desirable Cholestero l: less than 200 mg/dLBorderline High Cholesterol: 200-239 mg/dLHigh Cholesterol: greater than 239 mg/dL LDL Cholesterol Calculated 104(H) <100 mg/dL [facility] Comment:Desirable LDL: less than 100 mg/dLNear Optimal/Above Optimal LDL: 110- 129 mg/dLBorderline High LDL: 130-159 mg/dLHigh LDL: 160-189 mg/dLVery High LDL: greater than or equal to 190 mg/dL HDL Cholesterol 40(L) >40 mg/dL [facility] Comment:Desirable HDL: great er than 40 mg/dL Note: This HDL assay may give artificially low results in patients with liver disease. Blood Venous blood specimen / Unknown 10/21/2024 10:04 AM EST 10/21/2024 11:05 AM EST us Lorene Lugo DO LAB BLOOD ORDERABLES Final R esult [facility] [address] [place] [phone] * BI Mammogram Screening Tomosynthesis Bilateral (09/15/2024 9:52 AM EDT) Anatomical Region Laterality Modality Breast Bilateral Mammography 09/15/2024 9:52 AM EDT Narrative 09/27/2024 12:30 PM EDT ? [facility] [place] ? [address] ?[place] [address] ? Mammography Report ? Signed with Addenda ? Patient: Chapin,Cheryl I ?MR#: [id number] ?? 96 ? : 1960 ?Acct:[id number] ? Age/Sex: 63 / F ?ADM Date: 10//24 ? Loc: HO.MAMMO ? Attending Dr: Lorene Lugo DO ? Ordering Physician: Lorene Lugo DO ?Results: 1N ?? egative ? Date of Service: 09/15/24 ?Follow Up: 1 Year From Orig ?? inal Mammogram ? Procedure(s): MM tomosynthesis screening BI ?? Accession Number(s): [id number] ? cc: Lorene Lugo DO ?ADDENDUM ? ADDENDUM #1 ? ADDENDUM: ?? Due to a software issue related to the original report, this case has ?? been reviewed again and the original findings and recommendations ?? remain the same. ? OVERALL ASSESSMENT: ?? BI-RADS 1 - Negative ? RECOMMENDATION: ?? 1 year F/U ? Electronically signed by: ??Audrey Ambrosio DO ??09/30/2024 10:49 AM EDT ? Addendum Dictated By: ?Audrey Ambrosio, DO ? Addendum Signed By: ? <Electronically signed by Audrey Ambrosio, DO in OV> ? 09/30/24 1049 ?? Addendum Cosigned By: ? DD/ ? TD/TT: 09/15/24 ? EXAMINATION: ?? MM SCREENING DIGITAL BREAST TOMOSYNTHESIS, BILATERAL ? CLINICAL INFORMATION: ? Screening. Asymptomatic. ? COMPARISON: ?? Mammography: Comparison is made with available priors ? TECHNIQUE: ?? Digital breast mammography with tomosynthesis is performed in both the ?? craniocaudal and mediolateral oblique views along with computer-aided ?? detection (CAD). ? FINDINGS: ?? There are scattered areas of fibroglandular density (ACR BI-RADS breast ?? composition Category b). ? There are no significant masses, abnormal calcifications, or other ?? abnormalities. ? MM/MM tomosynthesis screening BI ?? IMPRESSION: ?? No mammographic evidence of malignancy. ? ASSESSMENT: ? BI-RADS BI-RADS 1 - Negative ? RECOMMENDATION: ?? Routine annual mammography screening. ? 1 year F/U ? This examination should not preclude the clinical evaluation of a ?? suspicious palpable abnormality. ? This patient's information was entered into a reminder system with a ?? target due date for their next mammogram. ? Electronically signed by: ??Audrey Ambrosio DO ??09/27/2024 12:27 PM EDT ?? RP ? Dictated By: ?Audrey Ambrosio DO ? Signed By: ?<Electronically signed by Audrey Ambrosio, DO in OV> ? 09/27/24 1227 ? DD/ 0952 ? TD/TT: 09/15/24 1010 ? [employer] Compounder: ? Procedure Note [place], Image - 09/30/2024 [place] [facility] [address] [place], [place] [address] Mammography Report Signed with Addenda Patient: Cheryl Samson IMR#: [id number] 96 : 9Acct:[id number] Age/Sex: 63 / FADM Date: 09/15/24 Loc: HO.MAMMO Attending Dr: Lorene Lugo DO Ordering Physician: Lorene Lugoults: 1N egative Date of Service: 09/15/24Follow Up: 1 Year From Orig inal Mammogram Procedure(s): MM tomosynthesis screening BI Accession Number(s): [id number] cc: Lorene Lugo DO ADDENDUM ADDENDUM #1 ADDENDUM: Due to a software issue related to the original report, this case has been reviewed again and the original findings and recommendations remain the same. OVERALL ASSESSMENT: BI-RADS 1 - Negative RECOMMENDATION: 1 year F/U Electronically signed by: Audrey Ambrosio DO 09/30/2024 10:49 AM EDT Addendum Dictated By: Audrey Ambrosio DO Addendum Signed By: <Electronically signed by DO Abdiel in OV> 09/30/24 1049 Addendum Cosigned By: DD/ TD/TT: 09/15/24 EXAMINATION: MM SCREENING DIGITAL BREAST TOMOSYNTHESIS, BILATERAL CLINICAL INFORMATION: Screening. Asymptomatic. COMPARISON: Mammography: Comparison is made with available priors TECHNIQUE: Digital breast mammography with tomosynthesis is performed in both the craniocaudal and mediolateral oblique views along with computer-aided detection (CAD). FINDINGS: There are scattered areas of fibroglandular density (ACR BI-RADS breast composition Category b). There are no significant masses, abnormal calcifications, or other abnormalities. MM/MM tomosynthesis screening BI IMPRESSION: No mammographic evidence of malignancy. ASSESSMENT: BI-RADS BI-RADS 1 - Negative RECOMMENDATION: Routine annual mammography screening. 1 year F/U This examination should not preclude the clinical evaluation of a suspicious palpable abnormality. This patient's information was entered into a reminder system with a target due date for their next mammogram. Electronically signed by: Audrey Ambrosio DO 09/27/2024 12:27 PM EDT Dictated By: Audrey Ambrosio DO Signed By: <Electronically signed by Audrey Ambrosio DO in OV> 09/27/24 1227 DD/ 0952 TD/TT: 09/15/24 1010 [employer] Compounder: Lorene Lugo DO IMG BI PROCEDURES Edited Res ult - Final * (ABNORMAL) Cologuard?? colon cancer screening (03/04/2024 3:00 PM EDT) Cologuard Result Positive( A) Negative 03/10/2024 10:28 AM EDT [facility] (CLIA #:[id number]) Comment: POSITIVE TEST RESULT. A positive Cologuard result should be followed with a colonoscopy or visual examination of the colon. The normal value (reference range) for this assay is negative. TEST DESCRIPTION: Composite algorithmic analysis of stool DNA-biomarkers with hemoglobin immunoassay. ?? Quantitative values of individual biomarkers are not reportable and are not associated with individual biomarker result reference ranges. Cologuard is intended for colorectal cancer screening of adults of either sex, 45 years or older, who are at average-risk for colorectal cancer (CRC). Cologuard has been approved for use by the U.S. FDA. The performance of Cologuard was established in a cross sectional study of average-risk adults aged 50-84. Cologuard performance in patients ages 45 to 49 years was estimated by sub-group analysis of near-age groups. Colonoscopies performed for a positive result may find as the most clinically significant lesion: colorectal cancer [4.0%], advanced adenoma (including sessile serrated polyps greater than or equal to 1cm diameter) [20%] or non- advanced adenoma [31%]; or no colorectal neoplasia [45%]. These estimates are derived from a prospective cross-sectional screening study of 10,000 individuals at average risk for colorectal cancer who were screened with both Cologuard and colonoscopy. (Dominique Otto al, N Engl J Med 2014;370(14):0240-3715.) Cologuard may produce a false negative or false positive result (no colorectal cancer or precancerous polyp present at colonoscopy follow up). A negative Cologuard test result does not guarantee the absence of CRC or advanced adenoma (pre-cancer). The current Cologuard screening interval is every 3 years. ([place] [employer] and U.S. Multi-Society Task Force). Cologuard performance data in a 10,000 patient pivotal study using colonoscopy as the reference method can be accessed at the following location: www.[employer]/results. Additional description of the Cologuard test process, warnings and precautions can be found at www.Collect[employer].mangofizz jobs. Stool specimen (specimen) 03/04/2024 3:00 PM EDT 03/05/2024 11:39 AM EDT Lorene Lugo DO LAB MOLECULAR DIAGNOSTICS OR DERABLES Final Result [facility] (CLIA #:[id number]) [place] [address], * Hepatitis C Antibody with Reflex to HCV RNA,PCR w/Reflex to Genotype, LiPA (01/23/2023 8:47 AM EST) Hepatitis C Antibody NON-REACT MARCE NON-REACT MARCE [facility] Index <0.02 <1.00 [facility]os[facility] Comment: HCV antibody was non-reactive. There is no laboratory evidence of HCV infection. In most cases, no further action is required. However, if recent HCV exposure is suspected, a test for HCV RNA (test code 72581) is suggested. For additional information, please refer to http://education.Hurray!/faq/EAA497 (This link is being provided for informational/ educational purposes only.) 01/23/2023 8:47 AM EST 01/23/2023 8:48 AM EST Narrative [facility] - 01/24/2023 6:35 PM EST FASTING:YES FASTING: YES us Lorene Lugo DO LAB BLOOD ORDERABLES Final R esult [facility] [address] [place] [address], [place] [address] [facility] [address] [place] [address], ([address]2) [place] [address] * Thinprep PAP, HPV mRNA E6/E7 RFX HPV 16,18/45, Chlamydia/N. Gonorrhoeae (01/16/2023 10:19 AM EST) Clinical Information: SREENIN PAP [facility] LMP: NONE GIVEN [facility] Prev. PAP: YES [facility] Prev. BX: NO [facility] SOURCE: Cervix [facility] Statement Of Adequacy: SATISFACTORY FOR EVALUATION Partially obscuring inflammation [facility] Interpretation/Re sult: [facility] Comment: Negative for intraepithelial lesion or malignancy. Atrophic pattern; predominantly parabasal cells Detective: Qu Klatchert Comment: KR, CT(ASCP) CT screening location: [address] ??[address] (Always Message) [facility] Comment: EXPLANATORY NOTE: The Pap is a screening test for cervical cancer. It is not a diagnostic test and is subject to false negative and false positive results. It is most reliable when a satisfactory sample, regularly obtained, is submitted with relevant clinical findings and history, and when the Pap result is evaluated along with historic and current clinical information. HPV nRNA E6/E7 Not Detected Not Detected [facility] Comment: Methodology: Zipper Sewing Machine Operator-Mediated Amplification This assay detects E6/E7 viral messenger RNA (mRNA) from 14 high-risk HPV types (16,18,31,33,35,39,45,51,52,56,58,59,66,68). Cervical sources are required for HPV testing. If a vaginal source from a patient who has had a total hysterectomy with removal of cervix was submitted, please contact the testing laboratory for alternative testing options. For additional information, please refer to http://Ophis Vape.Vascular Dynamics/faq/KKB979w7 (This link if provided for information/ educational purposes only.) Chlamydia trachomatis RNA, TMA, Urogenital NOT DETECTED NOT DETECTED [facility] Neisseria gonorrhoeae RNA, TMA, Urogenital NOT DETECTED NOT DETECTED [facility] (Always Message) [facility] Comment: The analytical performance characteristics of this assay, when used to test SurePath(TM) specimens have been determined by [facility]. The modifications have not been cleared or approved by the FDA. This assay has been validated pursuant to the CLIA regulations and is used for clinical purposes. For additional information, please refer to https://Ophis Vape.V[employer] Dynamics/faq/PWY182 (This link is being provided for information/ educational purposes only.) Specimen from uterine cervix (specimen) 01/16/2023 10:19 AM EST 01/19/2023 12:52 AM EST Lorene Lugo DO LAB PATHOLOGY ORDERABLES Fin al Result [facility] [address], [place] [address] [facility] [address] [facility], (Nl2) [place] [address] * Hm Colonoscopy (12/13/2014) Colonoscopy Normal Normal Comment:Hyperplastic polyps 10yr 12/13/2014 Lauro Paredes MD HEALTH MAINTENANCE Final Res ult from Last 3 Months or Most Recently Relevant to Health Maintenance Insurance [facility] [employer] OPT[employer] (HMO D-SNP) [place] [id number] Care Teams Care Taker Relationship Specialty Start Date End Date Lorene Lugo DO [address] [place] [address] PCP - General Family Medicine 11/30/18 Keiko Bowman PharmD [address] [place] [address] Pharmacist Internal Medicine 06/19/23
--- OUTSIDE RECORDS SUMMARY | 2025-03-28 00:26 | XMS_ITS | Encounter Summary ---
Author Organization [facility] [employer] Address [address] [facility] [address] [place] [address] Care Team Providers Care Tire Maintenance Technician Name Role Phone Lorene Lugo DO Primary Care Provider [phone] Keiko Bowman PharmD Unavailable [phone] Encounter Details Date Type Department Care Team (Late st Contact Info) Description 03/27/2025 Orders Only GENERIC EXTERNAL DATA DEPARTMENT Provider, Generic External Data Social History Tobacco Use Types Packs/Day Years [...] Description 04/10/2025 9:30 AM EDT Medication Management [facility] [address] [place] [address] Keiko Bowman PharmD [address] [place] [address] documented as of this encounter Goals Goal Patient Goal Type Associated Problems Recent Progress Patient-Stated? Author Blood Pressure < 140/90 Blood Pressure 128/70(2024 8:59 AM EST) No Alo Freitas, PharmD Record your blood pressure at least once per week Blood Pressure Worsening(11/2022 9:44 AM EDT) No Keiko Bowman PharmDillon Hemoglobin A1c < 7 Result Component 6.6( 9:01 AM EST) No Alo Freitas, PharmD Record your blood sugar as directed Result Component On track( 023 9:44 AM EDT) No Keiko Bowman, PharmD documented as of this encounter Procedures Procedure Name Priority Date/Time Associated Diagnosis Comments URINALYSIS, COMPLETE, WITH REFLEX TO CULTURE Routine 03/27/2025 11:36 PM EDT SARS COV2/INFLUENZA A/B AND RSV RNA QL NAAT Routine 03/27/2025 11:26 PM EDT CBC WITH AUTO DIFFERENTIAL Routine 03/27/2025 11:26 PM EDT COMPREHENSIVE METABOLIC PANEL Routine 03/27/2025 11:26 PM EDT documented in this encounter Results * (ABNORMAL) Urinalysis, Complete, with Reflex to Culture (03/27/2025 11:36 PM EDT) Color Urine Dark Yellow [facility] Appearance Urine Cloudy [facility] PH 6.0 5.0 - 9.0 [facility] Glucose Urine UA Negative Negative mg/dL [facility] Urine Blood Negative Negative [facility] Specific [place] - Urine 1.025 1.005 - 1.025 [facility] Urine Protein Trace Neg-Trace mg/dL [facility] Urine Ketones Trace Negative mg/dL [facility] Nitrite Urine Negative Negative [facility] Leukocyte Esterase Urine Moderate (2+)(A) Negative [facility] RBC Urine 0-2 0 - 2 /HPF [facility] Urine WBC 6-10 0 - 5 /HPF [facility] Urine Squamous Epithelial Cell 11-20 0 - 2 /HPF [facility] CALCIUM OXALATE CRYSTAL, UR Present [facility] Urine Bacteria Trace None Seen [facility] Hyaline Casts, Urine 0-2 0 - 2 /LPF [facility] 03/27/2025 11:3 6 PM EDT 03/27/2025 11:43 PM EDT Narrative [facility] - 03/27/2025 11:56 PM EDT [id number], Clean Catch us Generic External Data Provider LAB URINE ORDERAB LES Final Result [facility] [address] [place] [address] [phone] * SARS-CoV-2 RNA, Influenza A/B, and RSV RNA, Ql NAAT (03/27/2025 11:26 PM EDT) Influenza A PCR NEGATIVE Negative [facility] Influenza B PCR NEGATIVE Negative [facility] Resp Syncy Virus RNA Qual PCR NEGATIVE Negative [facility] SARS COV2 PCR NEGATIVE Negative [facility] Comment:All test results mus t [...] use by authorized laboratories.Testing performed on the [facility] GeneXpert utilizingreal-time RT-PCR.All SARS CoV2 and positive influenza A/B results arereported to [facility]. 03/27/2025 11:2 6 PM EDT 03/27/2025 11:28 PM EDT us Generic External Data Provider LAB MICROBIOLOGY - GENERAL ORDERABLES Final Result [facility] [address] [place] [phone] * (ABNORMAL) Comprehensive Metabolic Panel (03/27/2025 11:26 PM EDT) Sodium 143 135 - 145 mmol/L [facility] Potassium 3.5 3.3 - 5.1 mmol/L [facility] Chloride 107 96 - 108 mmol/L [facility] Carbon Dioxide 25 22 - 29 mmol/L [facility] Anion Gap 15 12 - 20 [facility] Urea Nitrogen (BUN) 14 9 - 16 mg/dL [facility] Creatinine, Serum 0.62 0.5 - 1.4 mg/dL [facility] Creatinine Clr Calc Pharmacy 84.7 [facility] Comment:Provided height and weight: 152.4 cm,82.1 kg.eGFR (calculated from the MDRD study equation) and eCrCl(calculated from the Cockcroft-Gault equation) are based ondifferent parameters and may not yield comparable results.If eCrCl result is absurd, please check patient'sheight/weight. Estimated Glomerular Filt Rate >60 [facility] Comment:Chronic Kidney Disea se: Estimated GFR < 60 mL/min/[id number] Kidney Disease: Estimated GFR < 15 mL/min/1.73m2 Glucose 140(H) 60 - 115 mg/dL [facility] Calcium 8.6 8.4 - 10.2 mg/dL [facility] Bilirubin, Total 0.4 0.0 - 1.0 mg/dL [facility] Aspartate Amino Transferase 26 5 - 31 U/L [facility] Alanine Aminotransferase 23 0 - 31 U/L [facility] Total Protein 7.1 6.5 - 8.0 g/dL [facility] Albumin Level 4.0 3.5 - 5.0 g/dL [facility] Alkaline Phosphatase 83 39 - 117 U/L [facility] 03/27/2025 11:2 6 PM EDT 03/27/2025 11:29 PM EDT us Generic External Data Provider LAB BLOOD ORDERAB LES Final Result [facility] [address] [place] [address] [phone] * CBC auto differential (03/27/2025 11:26 PM EDT) White Blood Count 9.9 4.8 - 10.8 X10*3/uL [facility] Red Blood Count 4.34 4.20 - 5.50 X10*6/uL [facility] Hemoglobin 12.3 12.0 - 16.0 g/dl [facility] Hematocrit 37.2 37.0 - 47.0 % [facility] Mean Corpuscular Volume 85.7 80.0 - 98.0 fL [facility] Mean Corpuscular Hemoglobin 28.3 27.0 - 33.0 pg [facility] Mean Corpuscular HGB Conc 33.1 31.0 - 35.0 g/dl [facility] Red Cell Distribution Width 13.1 11.0 - 16.0 % [facility] Platelet Count 215 160 - 400 X10*3/uL [facility] Mean Platelet Volume 10.3 9.4 - 12.3 fL [facility] Neutrophils Percent Auto 63.5 45 - 73 % [facility] Imm Gran Pct Auto 0.2 0.0 - 0.4 % [facility] Lymphocytes Percent Auto 26.8 20 - 40 % [facility] Monocytes Percent Auto 8.5 2 - 11 % [facility] Eosinophils Percent Auto 0.8 0 - 4 % [facility] Basophils Percent Auto 0.2 0 - 2 % [facility] NRBC Pct Auto 0.0 0.0 - 0.2 /100WBC [facility] Neutrophils Absolute Auto 6.3 2.0 - 8.3 x10*3/uL [facility] Imm Gran Abs Auto 0.02 0.00 - 0.03 X10*3/uL [facility] Lymphocytes Absolute Auto 2.7 1.2 - 4.9 X10*3/uL [facility] Monocytes Absolute Auto 0.8 0.1 - 1.2 X10*3/uL [facility] Eosinophils Absolute Auto 0.1 0.0 - 0.4 X10*3/uL [facility] Basophils Absolute Auto 0.0 0.0 - 0.2 X10*3/uL [facility] NRBC Abs Auto 0.000 0.0 - 0.012 X10*3/uL [facility] 03/27/2025 11:2 6 PM EDT 03/27/2025 11:29 PM EDT us Generic External Data Provider LAB BLOOD ORDERAB LES Final Result [facility] [address] [place] [address] [phone] documented in this encounter Visit Diagnoses Not on filedocumented in this encounter Additional Health Concerns Assessment Noted Time PHQ-9 Depression Total Score: 0 08/25/20 23 9:41 AM EDT documented as of this encounter Care Teams Tire Maintenance Technician Relationship Specialty Start Date End Date Lorene Lugo DO [address] [place] [address] PCP - General Family Medicine 11/30/18 Keiko Bowman, Sumit [address] [place] [address] Pharmacist Internal Medicine 06/19/23 documented as of this encounter
--- OUTSIDE RECORDS SUMMARY | 2025-03-28 00:26 | XMS_ITS | Encounter Summary ---
Author Organization [employer] Address [address] [place] [address] [address] [place] [address] Care Team Providers Care Senior Net Application Developer Name Role Phone Lorene Lugo DO Primary Care Provider [phone] Dellogono Alo PharmD Unavailable Unavail able Puia, Keiko PharmD Unavailable [phone] Encounter Details Date Type Department Care Team (Late st Contact Info) Description 01/06/2023 Orders Only [facility] [address] [place] [address] Lorene Hollingsworth LPN Social History Tobacco Use Types Packs/Day Years [...] Medication Management [facility] [address] [place] [address] Puia, Keiko, PharmD [address] [place] [address] documented as of this encounter Procedures Procedure Name Priority Date/Time Associated Diagnosis Comments CULTURE, URINE, ROUTINE Routine 08/25/2023 9:49 AM EDT [facility] COVID-19 AG Routine 07/07/2023 1:04 PM EDT documented in this encounter Results * Culture, Urine, Routine (08/25/2023 9:49 AM EDT) Urine Urine specimen obtained by clean catch procedure / Unknown 08/25/2023 9:49 AM EDT 08/25/2023 6:40 PM EDT Comment:UACC Narrative [facility] - 08/27/2023 11:24 AM EDT Urine Culture Report Result Urine Culture 10,000 to 50,000 cfu/ml Urine Culture Mixed bacterial meenu characteristic of Urine Culture urogenital contamination. Specimen Source: Urine clean catch Lorene Lugo DO LAB MICROBIOLOGY - GENERAL O RDERABLES Final Result Performing Organization Address [facility] Co de Phone Number [facility] [address] [place] [phone] * (ABNORMAL) [facility]axNOW Covid-19 Ag (07/07/2023 1:04 PM EDT) [facility] Covid-19 Ag Positive (A) Negative [facility] Comment:Result reported to [facility].All test results must be correlated with clinical findings.This test has been authorized by the FDA under an EmergencyUse Authorization(EUA)for use by authorized laboratories.Testing performed on the [employer]axNow Covid-19 Ag Card which eva lateral flow immunoassay. The test does not differentiatebetween the SARS-CoV and SARS-COV-2. 07/07/2023 1:04 PM EDT 07/07/2023 1:34 PM EDT [facility] Exter nal Provider LAB BODY FLUIDS AND STOOLS ORDERABLES Final Result Performing Organization Address [facility]/ZIP Co de Phone Number [facility] [address] [place] [phone] documented in this encounter Visit Diagnoses Not on filedocumented in this encounter Care Teams Senior Net Application Developer Relationship Specialty Start Date End Date Lorene Lugo DO [address] [place] [address] PCP - General Family Medicine 11/30/18 Alo Freitas, EdsonD [address] [place] [address] Pharmacist Internal Medicine 02/11/23 06/18/23 Keiko Bowman PharmD [address] [place] [address] Pharmacist Internal Medicine 06/19/23 documented as of this encounter
--- NOTE | 2025-03-28 00:47 | ED_ITS ---
HPI - Abdominal Pain General Chief Complaint: Abdominal Pain Stated Complaint: Stomach Pain Time Seen by Provider: 03/28/25 00:32 Source: patient Mode of arrival: ambulatory Limitations: no limitations History of Present Illness ED Provider: Dr. Laureen Mtz HPI narrative: Patient comes to the emergency room complaining of epigastric pain for several days. Also 1 episode of diarrhea. Patient denies nausea or vomiting. Denies fever chills. Denies hematuria or dysuria. Denies chest pain. Patient states that she has a burning sensation in the epigastric area that radiates towards the chest. Patient has been taking omeprazole which was prescribed less than 2 weeks ago. Patient was seen here for the same reason. Related Data Home Medications ?Medication ?Instructions ?Recorded ?Confirmed aspirin 81 mg tablet,delayed 81 mg PO DAILY 03/15/21 06/15/24 release atorvastatin 40 mg tablet 40 mg PO BEDTIME 03/15/21 06/15/24 cholecalciferol (vitamin D3) 50 50 mcg PO DAILY 03/15/21 06/15/24 mcg (2,000 unit) tablet docusate sodium 100 mg capsule 100 mg PO DAILY 03/15/21 06/15/24 multivitamin-ferrous 1 tab PO DAILY 03/15/21 06/15/24 fumarate-folic acid 18 mg-400 mcg tablet omeprazole 20 mg capsule,delayed 20 mg PO DAILY 03/15/21 06/15/24 release sertraline 50 mg tablet 50 mg PO DAILY 03/15/21 06/15/24 losartan 50 mg tablet 50 mg PO DAILY 03/21/22 06/15/24 blood sugar diagnostic (FreeStyle #10 ea 05/22/22 06/15/24 Lite Strips) omega 6-sil-edv-fish oil 100 1 cap PO DAILY 05/22/22 06/15/24 mg-160 mg-1,000 mg capsule (Fish Oil) lancets 28 gauge (FreeStyle #100 ea 12/09/22 06/15/24 Lancets) cetirizine 10 mg tablet 10 mg PO DAILY 04/20/24 06/15/24 ascorbic acid (vitamin C) 500 mg mg PO 08/18/24 capsule dulaglutide 1.5 mg/0.5 mL mg subcut 08/18/24 subcutaneous pen injector ([facility] Previous Rx's ?Medication ?Instructions ?Recorded cefuroxime axetil 500 mg tablet 500 mg PO Q12H #10 tabs 08/18/24 aluminum hydrox-magnesium carb 254 10 ml PO QID PRN dyspepsia #355 mL 03/17/25 mg-237.5 mg/5 mL oral suspension (Gaviscon Extra Strength) sucralfate 1 gram tablet (Carafate) 1 g PO BID #60 tabs 03/28/25 Allergies Allergy/AdvReac Type Severity Reaction Status Date / Time ibuprofen [From Motrin] Allergy Mild Rash Verified 03/27/25 23:12 Review of Systems Review of Systems Constitutional : No Weight loss, No Fever, No Chills, No Night Sweats, No Fatigue, No Malaise ENT/Mouth : No Hearing loss, No Ear Pain, No Nasal Congestion, No Sinus Pain, No Hoarseness, No sore throat, No Rhinorrhea, No Swallowing Difficulty Eyes: No Eye Pain, No Swelling, No Redness, No Foreign Body, No Discharge, No Vision Changes Cardiovascular : No Chest Pain, No SOB, No Dyspnea on Exertion, No Orthopnea, No Edema, No Palpitations Respiratory : No Cough, No Sputum, No Wheezing, No Smoke Exposure, No Dyspnea Gastrointestinal : No Nausea, No Vomiting, No Diarrhea, No Constipation, Complaining of burning epigastric pain radiating into chest Genitourinary : no irregular bleeding, No Dysuria, No Urinary Frequency, No Hematuria, No Urinary Incontinence, No Urgency, No Flank Pain, No Urinary Flow Changes, No Hesitancy Musculoskeletal : No joint pain, No Myalgias, No Joint Swelling Skin : No Skin Lesions, No rash Neuro : No Weakness, No Numbness, No Paresthesias, No Loss of Consciousness, No Dizziness, No Headache Psych : No Anxiety/Panic, No Depression, No SI/HI/AH/VH, No Social Issues, Heme/Lymph: No Bruising, No Bleeding,No Lymphadenopathy Endocrine : No Polyuria, No Polydipsia, No Temperature Intolerance PMFSH Past Medical History Medical History Carpal tunnel syndrome of right wrist History of carpal tunnel syndrome GERD (gastroesophageal reflux disease) Arthritis HTN (hypertension) History of palpitations Mitral valve regurgitation Hyperlipidemia Nephrolithiasis Wrist pain, right Diabetes Surgical History Hx of colonoscopy History of esophagogastroduodenoscopy (EGD) History of tubal ligation Social History Social History Alcohol intake: never Patient Tobacco Use Status: Never used Tobacco Advance Directives: No Advance Directives Information Provided: Yes Do you have a plan to hurt others: No Plan Current occupational status: disabled 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 Oriented X3. No acute distress. Eyes: Pupils equal, round and reactive to light. ENT: Pharynx normal. Neck: Normal inspection. Neck supple. No lymph nodes noted. No crepitus CVS: Normal heart rate and rhythm. Pulses normal. Normal S1 and S2 Respiratory: No respiratory distress. Breath sounds normal. No Wheezing. No rales Abdomen: Soft and nontender. No rigidity. No distention. Skin: Skin warm and dry. Normal skin color. Normal skin turgor. Extremities: No lower extremity edema. No Lacerations. No Rash Neuro: Oriented X 3. No motor deficit. No sensory deficit. Moving all extremities. No slurred speech. CN 2 through 12 grossly intact Psych: calm, cooperative, normal affect Course Course Course Narrative: on physical exam, patient did not have any significant abdominal pain to deep palpation. No rebound or guarding. Patient states it is mostly a burning sensation. patient was given p.o. viscous lidocaine and Maalox Medical Decision Making Medical Decision Making [facility] Narrative: my interpretation of labs: No significant abnormality in patient's hematology and chemistry. LFTs normal, lipase normal. Urinalysis negative for UTI. Serology negative patient has CT scan done does not 2 weeks ago. Did not show any acute abnormality. Physical exam is reassuring. At this time, repeating a CT scan or adding an ultrasound would not be helpful at this time. patient well-appearing. Perforation not suspected Patient had improvement with the GI cocktail my interpretation of EKG: Normal sinus rhythm, heart rate 82, no ST segment depression or elevation, no T-wave inversion, QTC 4 awake I discussed with the patient that if within the next few weeks she does not have any improvement with the treatment, she may need an endoscopy. Differential Diagnosis Differential Diagnoses: The differential diagnosis associated with the presentation includes ( gastritis, peptic ulcer disease) Admission/Observation Consideration of admission/observation: Escalation of care including admission/observation considered ( given patient's reoccurrence of symptoms, observation was considered) Lab Data MDM Lab Attestation statement: I reviewed the patient's lab results. 03/27/25 23:26 03/27/25 23:26 Labs: Lab Results 03/27/25 03/27/25 Range/Units 23:26 23:36 WBC 9.9 (4.8-10.8) X10*3/uL RBC 4.34 (4.20-5.50) X10*6/uL Hgb 12.3 (12.0-16.0) g/dl Hct 37.2 (37.0-47.0) % MCV 85.7 (80.0-98.0) fL MCH 28.3 (27.0-33.0) pg MCHC 33.1 (31.0-35.0) g/dl RDW 13.1 (11.0-16.0) % Plt Count 215 (160-400) X10*3/uL MPV 10.3 (9.4-12.3) fL Immature Gran % (Auto) 0.2 (0.0-0.4) % Neut % (Auto) 63.5 (45-73) % Lymph % (Auto) 26.8 (20-40) % Harvey % (Auto) 8.5 (2-11) % Eos % (Auto) 0.8 (0-4) % Baso % (Auto) 0.2 (0-2) % Lymph # (Auto) 2.7 (1.2-4.9) X10*3/uL Harvey # (Auto) 0.8 (0.1-1.2) X10*3/uL Eos # (Auto) 0.1 (0.0-0.4) X10*3/uL Baso # (Auto) 0.0 (0.0-0.2) X10*3/uL Abs Immat Gran (auto) 0.02 (0.00-0.03) X10*3/uL Absolute Neuts (auto) 6.3 (2.0-8.3) x10*3/uL Absolute Nucleated RBC 0.000 (0.0-0.012) X10*3/uL Nucleated RBC % (auto) 0.0 (0.0-0.2) /100WBC Sodium 143 (135-145) mmol/L Potassium 3.5 (3.3-5.1) mmol/L Chloride 107 (96-108) mmol/L Carbon Dioxide 25 (22-29) mmol/L Anion Gap 15 (12-20) BUN 14 (9-16) mg/dL Creatinine 0.62 (0.5-1.4) mg/dL Estim Creat Clear Calc 84.7 Estimated GFR > 60 Random Glucose 140 H (60-115) mg/dL Calcium 8.6 (8.4-10.2) mg/dL Total Bilirubin 0.4 (0.0-1.0) mg/dL AST 26 (5-31) U/L ALT 23 (0-31) U/L Alkaline Phosphatase 83 (39-117) U/L Total Protein 7.1 (6.5-8.0) g/dL Albumin 4.0 (3.5-5.0) g/dL Lipase 44 (8-78) U/L Urine Color Dark Yellow Urine Appearance Cloudy Urine pH 6.0 (5.0-9.0) Ur Specific [place] 1.025 (1.005-1.025) Urine Protein Trace (Neg-Trace) mg/dL Urine Glucose (UA) Negative (Negative) mg/dL Urine Ketones Trace (Negative) mg/dL Urine Blood Negative (Negative) Urine Nitrite Negative (Negative) Ur Leukocyte Esterase Moderate (2+) H (Negative) Urine RBC 0-2 (0-2) /HPF Urine WBC 6-10 (0-5) /HPF Ur Squamous Epith Cells 11-20 (0-2) /HPF Calcium Oxalate Crystal Present Urine Bacteria Trace (None Seen) Hyaline Casts 0-2 (0-2) /LPF Influenza Type A (PCR) NEGATIVE (Negative) Influenza Type B (PCR) NEGATIVE (Negative) RSV RNA Qual (PCR) NEGATIVE (Negative) SARS-CoV-2 RNA (RT-PCR) NEGATIVE (Negative) Critical Care Time Critical Care Time Critical Care Time: Yes Total Critical Care Time: 35 Attestation: I have personally provided critical care time. Time includes review of lab data, radiology results, discussion with consultants, and monitoring for potential decompensation. Intervention performed as documented. Discharge Plan Discharge Clinical Impression: Peptic ulcer disease Patient Disposition: Home, Self-Care Instructions: Peptic Ulcer (ED), Diet for Stomach Ulcers and Gastritis (ED) Additional Instructions: Please follow-up with your primary care physician tomorrow. Avoid using ibuprofen /Advil. If you have any worsening or new symptoms, please return to the emergency room or call 911 Prescriptions: New sucralfate [Carafate] 1 gram tablet 1 g PO BID Qty: 60 0RF No Action cefuroxime axetil 500 mg tablet 500 mg PO Q12H Qty: 10 0RF Gaviscon Extra Strength 254-237.5 mg/5 mL suspension 10 ml PO QID PRN (Reason: dyspepsia) Qty: 355 0RF cetirizine 10 mg Tablet 10 mg PO DAILY Centrum Women 18-400 mg-mcg tablet 1 tab PO DAILY cholecalciferol (vitamin D3) 50 mcg (2,000 unit) tablet 50 mcg PO DAILY sertraline 50 mg tablet 50 mg PO DAILY aspirin 81 mg tablet,delayed release (DR/EC) 81 mg PO DAILY omeprazole 20 mg capsule,delayed release(DR/EC) 20 mg PO DAILY atorvastatin 40 mg tablet 40 mg PO BEDTIME docusate sodium 100 mg capsule 100 mg PO DAILY (DME) lancets [FreeStyle Lancets] 28 gauge misc See Rx Instructions .ROUTE BID Qty: 100 Rx Instructions: As directed losartan 50 mg tablet 50 mg PO DAILY (DME) FreeStyle Lite Strips Strip See Rx Instructions Not Applicable BID Qty: 10 Rx Instructions: As directed Fish Oil 100-160-1,000 mg capsule 1 cap PO DAILY Trulicity 1.5 mg/0.5 mL pen injector subcut ascorbic acid (vitamin C) 500 mg capsule PO Print Language: Vietnamese
--- NOTE | 2025-03-28 00:48 | ECG_ITS ---
Test Reason : ABD PAIN Blood Pressure : */* mmHG Vent. Rate : 82 BPM Atrial Rate : 82 BPM P-R Int : 160 ms QRS Dur : 76 ms QT Int : 350 ms P-R-T Axes : 44 42 36 degrees QTcB Int : 408 ms Normal sinus rhythm Normal ECG When compared with ECG of 23-Jan-2019 03:41, No significant change was found Referred By: Laureen Mtz Electronically Signed By: Robin Conti
[2025-03-28 00:49] LABS: Lipase 44 U/L (8-78)
[2025-03-28] MEDS: Magnesium Hydrox/Alum Hydrox 30 ML ORAL.SUSP PO (01:11)
[2025-03-28] MEDS: Lidocaine HCl Viscous 2 % 15 ML SOLUTION MUCOUS MEM (01:11)
[2025-03-28 01:14] VITALS: BP 158/76; PULSE 97; RESP 16; TEMP 36.6; O2SAT 99
== END 2025-03-28 01:15 | disposition home or self-care (01) ==
PROVIDERS: Emergency Provider Emergency Medicine; PCP Family Medicine
DX: K27.9 Peptic ulcer, site unspecified, unspecified as acute or chronic, without hemorrhage or perforation (principal); R10.13 Epigastric pain; R19.7 Diarrhea, unspecified; I10 Essential (primary) hypertension; E11.9 Type 2 diabetes mellitus without complications; Z79.899 Other long term (current) drug therapy; Z03.818 Encounter for observation for suspected exposure to other biological agents ruled out
CPT/HCPCS: 0241U; 36415; 80053; 81001; 83690; 85025; 87086; 93005; 99284

== ENCOUNTER → 2025-03-28 00:48 | Outpatient (BNV) | payer OTHER, SELFPAY | PROVIDERS: Emergency Provider Emergency Medicine; PCP Family Medicine; Visit Provider Internal Medicine Cardiovascular Disease | DX: R10.9 Unspecified abdominal pain (principal) | CPT/HCPCS: 93010 ==

== ENCOUNTER 2025-04-05 18:03 | Outpatient (REF) | payer OTHER, SELFPAY ==
--- OUTSIDE RECORDS SUMMARY | 2025-04-05 18:05 | XMS_ITS | Encounter Summary ---
Author Organization [employer] Address 75 [facility] 7t [place] [address] Care Team Providers Care Software Development Coordinator Name Role Phone Lorene Lugo DO Primary Care Provider [phone] Puia, Keiko PharmD Unavailable [phone] Reason for Visit * Reason Comments Med Refill Encounter Details Date Type Department Care Team (Late st Contact Info) Description 02/09/2025 Refill [facility] MEDICINE [address] [place] [address] Puia, Keiko, PharmD [address] [place], [place] [phone] Social History Tobacco Use Types Packs/Day Years [...] intended per last CDTM plan) waiting for pickle processor. This request for 2.5 mg was sent in error. No action required. documented in this encounter Plan of Treatment Upcoming Encounters Date Type Department Care Team (Late st Contact Info) Description 04/10/2025 9:30 AM EDT Medication Management [facility] MEDICINE [address] [place] [address] Keiko Bowman PharmD [address] [place] [address] documented as of this encounter Goals Goal Patient Goal Type Associated Problems Recent Progress Patient-Stated? Author Blood Pressure < 140/90 Blood Pressure 124/70(2024 11:52 AM EDT) No Alo Freitas PharmD Record your blood pressure at least once per week Blood Pressure Worsening(11/2022 9:44 AM EDT) No Keiko Bowman PharmD Hemoglobin A1c < 7 Result Component 6.2( 11:55 AM EDT) No Alo Freitas PharmD Record your blood sugar as directed Result Component On track( 023 9:44 AM EDT) No Keiko Bowman PharmD documented as of this encounter Visit Diagnoses Not on filedocumented in this encounter Additional Health Concerns Assessment Noted Time PHQ-9 Depression Total Score: 0 08/25/20 23 9:41 AM EDT documented as of this encounter Care Teams Software Development Coordinator Relationship Specialty Start Date End Date Lorene Lugo DO [address] [place] [address] PCP - General Family Medicine 11/30/18 Keiko Bowman PharmD [address] [place] [address] Pharmacist Internal Medicine 06/19/23 documented as of this encounter
--- OUTSIDE RECORDS SUMMARY | 2025-04-05 18:05 | XMS_ITS | Encounter Summary ---
Author Organization [employer] Address 75 [facility] 7t [place] [address] Care Team Providers Care Manufacturing Engineer Name Role Phone Lorene Lugo DO Primary Care Provider [phone] Keiko Bowman PharmD Unavailable [phone] Reason for Visit * Reason Comments Med Refill Encounter Details Date Type Department Care Team (Late st Contact Info) Description 04/13/2024 Refill [facility] CHC MED & PEDS [address] [place], [place] [phone] Lorene Lugo DO 230 [place], [place] [phone] Social History Tobacco Use Types Packs/Day Years [...] Description 04/10/2025 9:30 AM EDT Medication Management [facility] MEDICINE [address] [place] [address] Keiko Bowman PharmD 230 [place] [address] documented as of this encounter Goals Goal Patient Goal Type Associated Problems Recent Progress Patient-Stated? Author Blood Pressure < 140/90 Blood Pressure 124/70(2024 11:52 AM EDT) No Dellogono Alo, PharmD Record your blood pressure at least once per week Blood Pressure Worsening(11/2022 9:44 AM EDT) No Puia Keiko, PharmD Hemoglobin A1c < 7 Result Component 6.2( 11:55 AM EDT) No Dellogono, Alo, PharmD Record your blood sugar as directed Result Component On track( 023 9:44 AM EDT) No Puia Keiko, PharmD documented as of this encounter Visit Diagnoses Not on filedocumented in this encounter Additional Health Concerns Assessment Noted Time PHQ-9 Depression Total Score: 0 08/25/20 23 9:41 AM EDT documented as of this encounter Care Teams Manufacturing Engineer Relationship Specialty Start Date End Date Lorene Lugo DO 230 [place] [address] PCP - General Family Medicine 11/30/18 Keiko Bowman, Sumit 230 [place] [address] Pharmacist Internal Medicine 06/19/23 documented as of this encounter
--- OUTSIDE RECORDS SUMMARY | 2025-04-05 18:05 | XMS_ITS | Encounter Summary ---
Author Organization [employer] Address 75 [facility] 7t [place] [address] Care Team Providers Care Devops Solutions Architect Name Role Phone Lorene Lugo DO Primary Care Provider [phone] Keiko Bowman PharmD Unavailable [phone] Reason for Visit * Reason Comments Med Refill Encounter Details Date Type Department Care Team ([facility] st Contact Info) Description 07/13/2024 Refill [facility] CHC MED & PEDS [address] [place], [place] [phone] Ximena Florez FNP 505 [place], [place] [phone] Social History Tobacco Use Types Packs/Day Years [...] 9:30 AM EDT Medication Management [facility] MEDICINE [address] [place] [address] PuiaKeiko, PharmD [address] [place] [address] documented as of this encounter Goals Goal Patient Goal Type Associated Problems Recent Progress Patient-Stated? Author Blood Pressure < 140/90 Blood Pressure 124/70(2024 11:52 AM EDT) No Dellogono, Alo, PharmD Record [...] documented as of this encounter Care Teams Devops Solutions Architect Relationship Specialty Start Date End Date Lorene Luog DO [address] [place], [place] [phone] PCP - General Family Medicine 11/30/18 Keiko Bowman, EdsonD [address] [place] [address] [place] [address] Pharmacist Internal Medicine 06/19/23 documented as of this encounter
--- OUTSIDE RECORDS SUMMARY | 2025-04-05 18:05 | XMS_ITS | Clinical Summary ---
Author Organization 175 [facility] Address [address] [place] [address] Phone Care Team Providers Care Colloid Mill Operator Name Role Phone Lorene Lugo DO Primary Care Provider [phone] Social History Tobacco Use Types Packs/Day Years Used Date Smoking Tobacco: Never Assessed Comments Unknown Sex and Gender Information Value Date Recorded Sex Assigned at Not on file Legal Sex Female 10:48 PM EST Gender Identity Not on file Sexual Orientation Not on file Plan of Treatment Upcoming Encounters Date Type Department Care Team ([facility] Contact Info) Description 04/12/2025 9:15 AM EDT Consult Orthopedic Surgery - [place] [address] [address] Eleuteiro Santiago, DPM [address] [address] Health Maintenance Due Date Last Done Comments [...] ID:[id number] Group ID:[id number] Type:Not on file Address: [place] [address] [id number] MEDICAID - [place] Care Teams Colloid Mill Operator Relationship Specialty Start Date End Date Lorene Lugo DO [address] [place] [address] PCP - General Family Medicine 11/21/24
--- OUTSIDE RECORDS SUMMARY | 2025-04-05 18:05 | XMS_ITS | Encounter Summary ---
Author Organization [employer] Address 75 [facility] 7t [place] [address] Care Team Providers Care Manager Economic Name Role Phone Lorene Lugo DO Primary Care Provider [phone] Keiko Bowman PharmD Unavailable [phone] Reason for Visit * Reason Onset Date Comments Request For Order(s) 02/22/2024 Encounter Details Date Type Department Care Team (Late st Contact Info) Description 02/22/2024 Telephone [facility] MEDICINE [address] [place], [place] [phone] Lorene Lugo DO [address] [place], [place] [phone] Request For Order(s) Social History Tobacco Use Types Packs/Day Years Used Date Smoking Tobacco: Never Passive Smoke Exposure: Never Smokeless Tobacco: Never Alcohol Use Standard Drinks/Week Comments Never 0 (1 standard drink = 0.6 oz pur e alcohol) Depression Answer Date Recorded Patient Health Questionnaire-9 Score 0 08/25/2023 Housing Stability Answer Date Recorded What is your housing situation today? I have patriciamireya iraheta 09/14/[address] you [...] 3:57 PM EDT TC placed to pt [phone] in regards to below message. Pt reports she has already called [facility] to cancel the colonoscopy. Pt informed [...] not feeling well. Please contact pt at [phone] documented in this encounter Plan of Treatment Upcoming Encounters Date Type Department Care Team (Late st Contact Info) Description 04/10/2025 9:30 AM EDT Medication Management [facility] MEDICINE [address] [place] [address] Keiko Bowman, PharmD [address] [place] [address] documented as of this encounter Goals Goal Patient Goal Type Associated Problems Recent Progress Patient-Stated? Author Blood Pressure < 140/90 Blood Pressure 124/70(2024 11:52 AM EDT) No Alo Freitas, PharmDillon Record your blood pressure at least once per week Blood Pressure Worsening(11/2022 9:44 AM EDT) No Keiko Bowman PharmD Hemoglobin A1c < 7 Result Component 6.2( 11:55 AM EDT) No Alo Freitas, PharmD Record your blood sugar as directed Result Component On track( 023 9:44 AM EDT) No Keiko Bowman PharmD documented as of this encounter Visit Diagnoses Not on filedocumented in this encounter Additional Health Concerns Assessment Noted Time PHQ-9 Depression Total Score: 0 08/25/20 9:41 AM EDT documented as of this encounter Care Teams Manager Economic Relationship Specialty Start Date End Date Lorene Lugo DO [address] [place] [address] PCP - General Family Medicine 11/30/18 Keiko Bowman PharmD [address] [place] [address] Pharmacist Internal Medicine 06/19/23 documented as of this encounter
--- OUTSIDE RECORDS SUMMARY | 2025-04-05 18:05 | XMS_ITS | Encounter Summary ---
Author Organization [email or web address] Address 75 [facility] 7t [place] [address] Care Team Providers Care Tax Associate Attorney Name Role Phone Lorene Lugo DO Primary Care Provider [phone] Keiko Bowman PharmD Unavailable Reason for Visit * Reason Comments Med Refill Encounter Details Date Type Department Care Team ([facility] st Contact Info) Description 08/14/2024 Refill [facility] CHC MED & PEDS [address] [place], [place] [phone] Ximena Florez FNP 505 [place], [place] [phone] Social History Tobacco Use Types Packs/Day Years [...] Description 04/10/2025 9:30 AM EDT Medication Management [facility] MEDICINE [address] [place] [address] PuiaKeiko, PharmD [address] [place] [address] documented as of this encounter Goals Goal [...] documented as of this encounter Care Teams Tax Associate Attorney Relationship Specialty Start Date End Date Lorene Lugo DO [address] [place], [place] [phone] PCP - General Family Medicine 11/30/18 Keiko Bowman, EdsonD [address] [place] [address] [place] [address] Pharmacist Internal Medicine 06/19/23 documented as of this encounter
--- OUTSIDE RECORDS SUMMARY | 2025-04-05 18:05 | XMS_ITS | Encounter Summary ---
Author Organization [employer] Address 75 [facility] 7t [place] [address] Care Team Providers Care Marketing Co Op Name Role Phone Lorene Lugo DO Primary Care Provider [phone] Keiko Bowman PharmD Unavailable [phone] Reason for Visit * Reason Comments Med Refill Encounter Details Date Type Department Care Team ([facility] st Contact Info) Description 02/09/2025 Refill [facility] CHC MED & PEDS [address] [place], [place] [phone] Lorene Lugo DO [address] [place], [place] [phone] Healthcare maintenance Social History Tobacco Use Types [...] Medication Management [facility] MEDICINE [address] [place] [address] FrandyiaKeiko, PharmD [address] [place] [address] documented as of this encounter Goals Goal [...] documented as of this encounter Care Teams Marketing Co Op Relationship Specialty Start Date End Date Lorene Lugo DO 230 [place] [address] PCP - General Family Medicine 11/30/18 Keiko Bowman, Sumit [address] [place] [address] Pharmacist Internal Medicine 06/19/23 documented as of this encounter
--- OUTSIDE RECORDS SUMMARY | 2025-04-05 18:05 | XMS_ITS | Encounter Summary ---
Author Organization [employer] Address 75 [facility] 7t [place] [address] Care Team Providers Care Line Leader Name Role Phone Lorene Lugo DO Primary Care Provider [phone] Keiko Bowman PharmD Unavailable Reason for Visit * Reason Comments Med Refill Encounter Details Date Type Department Care Team ([facility] st Contact Info) Description 09/24/2024 Refill [facility] CHC MED & PEDS [address] [place], [place] [phone] Lorene Lugo DO [address] [place], [place] [phone] Social History Tobacco Use Types Packs/Day Years [...] Description 04/10/2025 9:30 AM EDT Medication Management [facility] MEDICINE [address] [place] [address] Keiko Bowman PharmD [address] [place] [address] documented as of this encounter Goals Goal [...] documented as of this encounter Care Teams Line Leader Relationship Specialty Start Date End Date Lorene Lugo DO [address] [place] [address] PCP - General Family Medicine 11/30/18 Keiko Bowman, Sumit [address] [place] [address] Pharmacist Internal Medicine 06/19/23 documented as of this encounter
--- OUTSIDE RECORDS SUMMARY | 2025-04-05 18:05 | XMS_ITS | Encounter Summary ---
Author Organization [employer] Address 75 [facility] 7t [place] [address] Care Team Providers Care Route Service Representative Name Role Phone Lorene Lugo DO Primary Care Provider [phone] Keiko Bowman PharmD Unavailable Reason for Visit * Reason Comments Med Refill Encounter Details Date Type Department Care Team (Late st Contact Info) Description 12/28/2024 Refill [facility] MEDICINE [address] [place], [place] [phone] Lorene Lugo DO [address] [place], [place] [phone] Social History Tobacco Use Types Packs/Day Years [...] 9:30 AM EDT Medication Management [facility] MEDICINE 230 [place] [address] PuiaNaderKeiko, PharmD [address] [place] [address] documented as of this encounter Goals Goal [...] track( 023 9:44 AM EDT) No Puia, Ekiko, PharmD documented as of this encounter Visit Diagnoses Not on filedocumented in this encounter Additional Health Concerns Assessment Noted Time PHQ-9 Depression Total Score: 0 08/25/20 23 9:41 AM EDT documented as of this encounter Care Teams Route Service Representative Relationship Specialty Start Date End Date Lorene Lugo DO [address] [place] [address] PCP - General Family Medicine 11/30/18 Keiko Bowman, EdsonD [address] [place] [address] Pharmacist Internal Medicine 06/19/23 documented as of this encounter
--- OUTSIDE RECORDS SUMMARY | 2025-04-05 18:05 | XMS_ITS | Patient Health Record ---
Author Organization [facility] Address [address] [place] [address] Care Team Providers Care Sash Finisher Name Role Phone Anna Marie Lugo M.D. Primary Care Provider Lauro Lock Jr Unavailable [phone] Allergies Allergen (clinical drug ingredient) Drug/Non Drug Allergy documented on EMR Reaction Allergy Type Onset Date Status Motrin Unknown Drug Allergy Active Results Component Value Reference Range Notes Glucose, Whole Blood Reviewed date:04/22/2024 04:22:48 PM Interpretation: Performing Lab:[facility], [address] [place] [id number] Notes/Report: Glucose, Whole Blood 84 60-115 mg/dL METER # : [id number] Pathology Reviewed date:05/05/2024 01:16:40 PM Interpretation: Performing Lab:[facility], [address] [place] [phone] Notes/Report: ----- Name: ChapinAlexandra Femi Age/Sex: 63/F : 1960 Unit#: [id number] Attend Dr: Lauro Paredes MD Re04/22/24 Status : [facility] Location: [facility] Disch: ----- SPEC : [id number] REC STATUS: ANAID BETANCOURT NUM: [id number] [place]: 04/22/[address] [facility] [address]: Lauro Paredes MD ENTERED: 04/22/24 39 SP TYPE: Surgical OTHR DR: Anna Marie Lugo DO ORDERED: HE Stain/6, Gross Micro L4/2 Diagnosis A. Colon, at 50 cm, polyp: Tubular adenoma; negative for high-grade dysplasia and carcinoma. B. Colon, at 45 cm, polyp: Polypoid colonic mucosa with lymphoid aggregate and focal hyperplastic changes ; no adenomatous dysplasia seen. Clinical History Pre-Op Dx: Constipation Post-Op Dx: Colon polyps Microscopic Description Microscopic sections reviewed. Material Received A. Polyp at 50 B. Polyp at 45 Gross Description Received in two parts. Part A: Received in formalin labeled ?polyp at 50 cm? is a 0.45 cm shelton-pink papular tissue fragment, submitted in toto in a cassette labeled A. Part B: Received in formalin labeled ?polyp at 45? is a 0.35 cm shelton-pink rectangular- papular tissue fragm ent, submitted in toto in a cassette labeled B. CEDS Copies To: Lauro Paredes MD [address] [place] [address] [address] [place], [place] [phone] Anna Marie Lugo DO [address] [place] [address] CONTINUED ON NEXT PAGE ----- Name: Alexandra Samson I Age/Sex: 63/F : 1960 Unit#: [id number] Attend Dr: Lauro Paredes MD Re04/22/24 Status : [facility] Location: [facility] Disch: ----- SPEC : [id number] RECD : 04/22/24 STATUS: ANAID BETANCOURT NUM: [id number] [place]: 04/22/[address] [facility] [address]: Lauro aPredes MD ENTERED: 04/22/24 39 SP TYPE: Surgical OTHR DR: Anna Marie Lugo DO ORDERED: BINA Vogel/6, Gross Micro L4/2 ----- Signed (signature on file) Faith Sam 04/26/24 1606 ----- END OF REPORT Reason For Referral No Information Medications Medication SIG (Take, Route, Frequency, Duration) Notes Start Date End Date Status MiraLax (colon prep) 17 GM/SCOOP mixed with Gatorade or Crystal Light Orally begin at 5:00 p.m. the day before the procedure for 1 day 12/28/2023 Active Dulcolax (colon prep) 5 MG take at 3:00 p.m and 7:00p.m. Orally two tablets twice a day for one day for 1 day 12/28/2023 Active Fish Oil 1000mg Acti ve Jardiance 10 MG Oral for 90 Ac tive MiraLax (colon prep) 8.3 ounce ((238) grams mixed with Gatorade or Crystal Light orally begin at 5:00 p.m. the day before the procedure for 1 day 12/28/2023 Active Doc-Q-Lace 60mg Acti ve Aspirin Low Dose 81 MG Oral for 90 Active Aspir-81 81mg Active MiraLax Active Multi For Her 50+ - TAKE 1 TABLET BY SIRI TH EVERY MORNING Oral for 90 Active Sertraline HCl 50 MG Oral for 90 Active Simvastatin 40mg Act may Atorvastatin Calcium 40 MG Oral for 90 Active Senna Lax 8.6mg Acti ve Docusate Sodium 100 MG Oral for 90 Active Candesartan Cilexetil 4mg Active Vitamin D3 50 MCG (1999 UT) Oral for 90 Active Omeprazole 20mg Acti ve Polyethylene Glycol 3350 17 GM/SCOOP Oral for 14 Active Colyte with Flavor Packs 240 GM As directed Orally Over the specified time. for 1 day(s) 03/01/2014 Active Iron Active Cetirizine HCl 10 MG Oral for 90 Active Losartan Potassium 50 MG Oral for 90 Active Immunizations Vaccine Route Administration Date Status Comme nts Influenza Unknown 11/30/2023 Administered Problems Problem Type SNOMED Code ICD Code Onset Dates Problem Status W/U Status Risk Notes Problem [id number] Constipation, unspecified constipation type (K59.00) Active confirmed Encounters Encounter Location Date Provider Diagnosis [facility] [address] [place], [place] [phone] 04/22/2024 Lauro Paredes Jr Encounter for screening colonoscopy Z12.11 and Colon polyps K63.5 [facility] [address] [facility] [address] [place] [address] 05/05/2024 Lauro Paredes Jr Assessments Encounter Date Diagnosis (ICD Code) Assessment Notes Treatment Notes Treatment Clinical Notes Section Notes 04/22/2024 Encounter for screening colonoscopy (ICD-10 - Z12.11) 04/22/2024 Colon polyps (ICD-10 - K63.5) Plan Of Treatment Future Test Test Name Order Date COLONOSCOPY 03/01/2014 COLONOSCOPY 12/28/2023 Insurance Providers Payer Name Payer Address Payer Phone Subscriber Number Group Number Insured Name Patient Relationship to Insured Coverage Start Date Coverage End Date [facility] [address] Attn Claims [place] [id number] ALEXANDRA SAMSON Self - patient is the insured Medical (General) History Medical History History ICD Code Gastroesophageal reflux dise ase, EGD 07/07, no H. pylori or Davila's esophagus. Diabetes type 2 Nephrolithiasis Hyperlipidemia Mitral valve regurgitation Elevated body mass index Colonoscopy 12/14, hyperplastic polyps, t en-year followup Surgical History Surgery Date(Month/Year) tubal ligation
--- OUTSIDE RECORDS SUMMARY | 2025-04-05 18:05 | XMS_ITS | Encounter Summary ---
Author Organization [employer] Address 75 [facility] 7t [place] [address] Care Team Providers Care Carbonation Tester Name Role Phone Lorene Lugo DO Primary Care Provider [phone] Keiko Bowman PharmD Unavailable [phone] Reason for Visit * Reason Comments Med Refill Encounter Details Date Type Department Care Team ([facility] st Contact Info) Description 08/12/2024 Refill [facility] CHC MED & PEDS [address] [place], [place] [phone] Ximena Florez FNP [address] [place], [place] [phone] Social History Tobacco Use Types Packs/Day Years [...] Description 04/10/2025 9:30 AM EDT Medication Management [facility] MEDICINE [address] [place] [address] PuiaKeiko, PharmD [address] [place] [address] documented as of this encounter Goals Goal [...] documented as of this encounter Care Teams Carbonation Tester Relationship Specialty Start Date End Date Lorene Lugo DO [address] [place], [place] [phone] PCP - General Family Medicine 11/30/18 Keiko Bowman, EdsonD [address] [place] [address] [place] [address] Pharmacist Internal Medicine 06/19/23 documented as of this encounter
--- OUTSIDE RECORDS SUMMARY | 2025-04-05 18:05 | XMS_ITS | Encounter Summary ---
Author Organization [employer] Address 75 [facility] 7t [place] [address] Care Team Providers Care Manager Pharmaceutical Name Role Phone Lorene Lugo DO Primary Care Provider [phone] Keiko Bowman PharmD Unavailable [phone] Encounter Details Date Type Department Care Team (Late st Contact Info) Description 12/27/2024 Orders Only [facility] [address] [place] [address] Provider, MD Belinda Social History Tobacco Use Types Packs/Day Years [...] 04/10/2025 9:30 AM EDT Medication Management [facility] MEDICINE [address] [place] [address] Keiko Bowman PharmD [address] [place] [address] documented as of this encounter Goals Goal Patient Goal Type Associated Problems Recent Progress Patient-Stated? Author Blood Pressure < 140/90 Blood Pressure 124/70(2024 11:52 AM EDT) No Dellogono Alo, PharmD Record your blood pressure at least once per week Blood Pressure Worsening(11/2022 9:44 AM EDT) No PuiaNaderKeiko, PharmD Hemoglobin A1c < 7 Result Component 6.2( 11:55 AM EDT) No DellogonoBillyis, PharmD Record your blood sugar as directed Result Component On track( 023 9:44 AM EDT) No Puia, Keiko, PharmD documented as of this encounter Procedures [...] as of this encounter Care Teams Manager Pharmaceutical Relationship Specialty Start Date End Date Lorene Lugo DO [address] [place] [address] PCP - General Family Medicine 11/30/18 Keiko Bowman PharmD [address] [place] [address] Pharmacist Internal Medicine 06/19/23 documented as of this encounter
--- OUTSIDE RECORDS SUMMARY | 2025-04-05 18:06 | XMS_ITS | Encounter Summary ---
Author Organization [employer] Address [address] [facility] [address] [place] [address] Care Team Providers Care Shell Reprint Operator Name Role Phone Lorene Lugo DO Primary Care Provider [phone] Keiko Bowman PharmD Unavailable [phone] Reason for Visit * Reason Comments Med Refill Encounter Details Date Type Department Care Team (Late st Contact Info) Description 03/30/2025 Refill [facility] [address], [place] [phone] Lorene Lugo DO [address], [place] [phone] Social History Tobacco Use Types Packs/Day Years [...] Description 04/10/2025 9:30 AM EDT Medication Management [facility] [address] [place] [address] PuiaNaderKeiko, PharmD [address] [place] [address] documented as of this encounter Goals Goal [...] documented as of this encounter Care Teams Shell Reprint Operator Relationship Specialty Start Date End Date Lorene Lugo DO [address] [place] [address] PCP - General Family Medicine 11/30/18 Keiko Bowman, EdsonD [address] [place] [id number] Pharmacist Internal Medicine 06/19/23 documented as of this encounter
--- OUTSIDE RECORDS SUMMARY | 2025-04-05 18:06 | XMS_ITS | Clinical Summary ---
Author Organization [employer] Address [address] [place] [address] [address] [place] [address] Care Team Providers Care Brim Stitcher Name Role Phone Lorene Lugo DO Primary Care Provider [phone] Keiko Bowman PharmD Unavailable [phone] Allergies Active Allergy Reactions Criticality Noted Date Comments Goyo Inhibitors Cough Ibuprofen Rash Medium Other reaction(s): rash Other Reaction(s): Unknown Medications ascorbid acid ER (Vitamin C) 1000 MG ER tablet 1 tab by mouth daily OTC Active losartan (Cozaar) 50 MG tabletIndications:E ssential hypertension,Type 2 diabetes mellitus with diabetic microalbuminuria, without long-term current use of insulin ([facility]) Take 1 tablet (50 mg) by mouth Once daily. 90 tablet 3 024 Active glucose blood (FREESTYLE LITE) test stripIndications:Ty pe 2 diabetes mellitus with microalbuminuria, without long-term current use of insulin ([facility]) USE TO TEST BLOOD SUGAR TWICE DAILY [...] microalbuminuria, without long-term current use of insulin ([facility]) TAKE 1 TABLET BY MOUTH EVERY MORNING [...] microalbuminuria, without long-term current use of insulin ([facility]) USE TO TEST BLOOD SUGAR TWICE DAILY 200 each 11 025 Active omeprazole (PriLOSEC) [address] capsuleIndications: Chronic gastroesophageal reflux disease TAKE 1 CAPSULE BY MOUTH TWICE DAILY BEFORE BREAKFAST AND DINNER 180 capsule 025 Active famotidine (Pepcid) 20 MG tablet Take 1 tablet (20 mg) by mouth if needed at bedtime for heartburn. 30 tablet 11 025 2025 Active omeprazole (PriLOSEC) [address] capsuleIndications: [...] Encounters Date Type Department Care Team Description 04/05/2025 11:00 AM EDT Office Visit [facility] [address] [place] [address] Lorene Lugo DO Epigastric pain (Primary Dx); Fatigue, unspecified type; Type 2 diabetes mellitus with diabetic microalbuminuria, without long-term current use of insulin ([facility]) 04/03/2025 Telephone [facility] [address] [place] [address] Lorene Lugo DO Chart Prep 03/30/2025 Refill [facility] [address] [place] [address] Lorene Lugo DO 03/29/2025 Telephone [facility] [address] [place] [phone] Lorene Lugo DO ER Follow-up 03/27/2025 Orders Only GENERIC EXTERNAL DATA DEPARTMENT Provider, Generic External Data 03/17/2025 Orders Only GENERIC EXTERNAL DATA DEPARTMENT Provider, Generic External Data 03/16/[address] [address] Lorene Lugo DO Nurse Triage 03/10/2025 Refill [facility] [address] [place], [place] [phone] Lorene Lugo DO Chronic gastroesophageal reflux disease 02/27/2025 Refill [facility] [address] [place] [phone] Lorene Lugo DO Type 2 diabetes mellitus with microalbuminuria, without long-term current use of insulin ([facility]) 02/15/2025 Telephone [facility] [address] [place] [phone] Lorene Lugo DO ER Follow-up 02/14/2025 Orders Only GENERIC EXTERNAL DATA DEPARTMENT Provider, Generic External Data 02/09/2025 Refill [facility] [address] [place] [phone] Keiko Bowman, PharmD 02/09/2025 Refill [facility] [address] [place] [address] Lorene Lugo DO Healthcare maintenance 02/09/2025 Refill [facility] [address] [place] [address] Lorene Lugo DO Healthcare maintenance 01/27/2025 9:00 AM EST Office Visit [facility] [address] [place] [address] Lorene Lugo DO Type 2 diabetes mellitus with diabetic microalbuminuria, without long-term current use of insulin ([facility]) (Primary Dx); Essential hypertension; Other hyperlipidemia; Fatty liver; Anxiety; Mitral valve insufficiency, unspecified etiology; Chronic gastroesophageal reflux disease; Chronic constipation; Sleep-disordered breathing; History of nephrolithiasis; Left leg pain; Healthcare maintenance 01/27/2025 Travel 01/24/2025 Travel 01/13/2025 Refill [facility] [address] [place] [address] Jayne Richardson MD 01/10/2025 Refill [facility] [address] [place] [address] Lorene Lugo DO 01/10/2025 Travel from Last 3 Months Immunizations Name Administration [...] the past 12 months, has t he Closet[employer], gas, oil or water company threatened to shut off services in your home? No 09/14/2023 Depression Answer Date Recorded Patient Health Questionnaire-2 Score 0 08/25/2023 Comments No Sex and Gender Information Value Date Recorded Sex Assigned at Female 09/29/2022 10:16 AM EDT Legal Sex Female 10:16 AM EDT Gender Identity Female 09/29/2022 10:16 AM EDT Sexual Orientation Don't know 09/29/2022 10 :16 AM EDT Last Filed Vital Signs Vital Sign Reading Time Taken Comments Blood Pressure 124/70 04/05/2025 11:52 AM EDT Pulse 82 04/05/2025 11:52 AM EDT Temperature 36.5 ??C (97.7 ??F) 04/05/2025 11:52 AM E DT Respiratory Rate 19 04/05/2025 11:52 AM EDT Oxygen Saturation 98% 04/05/2025 11:52 AM EDT Inhaled Oxygen Concentration - - Weight 87.3 kg (192 lb 8 oz) 04/05/2025 11:52 AM EDT Height 152.4 cm (5') 04/05/2025 11:52 AM EDT Body Mass Index 37.6 04/05/2025 11:52 AM EDT Plan of Treatment Upcoming Encounters Date Type Department Care Team (Late st Contact Info) Description 04/10/2025 9:30 AM EDT Medication Management [facility] [address], [place] [phone] Keiko Bowman, PharmD [address] [place], [place] [phone] Health Maintenance Due Date Last Done Comments CT Colonography 1960 FIT 1960 FOBT 1960 Sigmoidoscopy 1960 Diabetes: Foot Exam 1968 Eye Exam 1968 Hepatitis A Vaccines (1 of 2 - Risk 2-dose series) 1977 COVID-19 Vaccine ( season) 2024 12/17/2021, 05/30/2021, 05/09/2021 Depression Screening 08/25/2024 08/25/2023, 08/25/20 23 SDOH Screening 08/25/2024 08/25/2023 Colonoscopy 12/13/2024 12/13/2014 Mammogram 09/15/2025 09/15/2024, 08/30, 09/08/2023, Additional history exists Diabetes: Hemoglobin A1C 10/06/2025 025, 01/27/2025, 01/10/2025, Additional history exists Lipid Panel 10/21/2025 10/21/2024, 12/0 02/2023, 01/23/2023, Additional history exists Alcohol/Substance Use Screening 04/05/2026 04/05/2025 Tobacco Screening 04/05/2026 04/05/2025 Colorectal Cancer Screening 03/04/2027 FIT DNA/Cologuard 03/04/2027 [...] 124/70(2024 11:52 AM EDT) No Alo Freitas, PharmD Record your blood pressure at least once per week Blood Pressure Worsening(11/2022 9:44 AM EDT) No Keiko Bowman PharmD Hemoglobin A1c < 7 Result Component 6.2( 11:55 AM EDT) No Alo Freitas, PharmD Record your blood sugar as directed Result Component On track( 023 9:44 AM EDT) No Puia, Keiko, PharmD Procedures Procedure Name Priority Date/Time Associated Diagnosis Comments POCT GLYCATED HEMOGLOBIN, TOTAL Routine 04/05/2025 11:55 AM EDT Type 2 diabetes mellitus with diabetic microalbuminuria, without long-term current use of insulin ([facility]) POCT GLUCOSE Routine 04/05/2025 11:54 AM EDT Type 2 diabetes mellitus with diabetic microalbuminuria, without long-term current use of insulin ([facility]) URINALYSIS, COMPLETE, WITH REFLEX TO CULTURE Routine 03/27/2025 11:36 PM EDT COMPREHENSIVE METABOLIC PANEL Routine 03/27/2025 11:26 PM EDT CBC WITH AUTO DIFFERENTIAL Routine 03/27/2025 11:26 PM EDT SARS COV2/INFLUENZA A/B AND RSV RNA QL NAAT Routine 03/27/2025 11:26 PM EDT CULTURE, URINE, ROUTINE Routine 03/27/2025 12:[address] ABDOMEN PELVIS W CONTRAST Routine [...] without long-term current use of insulin (CMS/HCC) POCT GLYCOSYLATED HEMOGLOBIN (HGB A1C) Routine 01/27/2025 9:01 AM EST Type 2 diabetes mellitus with diabetic microalbuminuria, without long-term current use of insulin (CMS/HCC) POCT GLYCATED HEMOGLOBIN, TOTAL Routine 01/10/2025 9:20 [...] Encounter for gynecological examination without abnormal finding HM COLONOSCOPY Routine 12/13/2014 from Last 3 Months or Most Recently Relevant to Health Maintenance Results * (ABNORMAL) POCT HGB A1C (04/05/2025 11:55 AM EDT) Only the most recent of2 resultswithin the time period is included. Hemoglobin A1C 6.2(A) 4.0 - 6.0 % QC Media Lot # [id number] Lot# Expiration Date Blood 04/05/2025 11:5 5 AM EDT Lorene Brittney DO POINT OF CARE TEST ENTER/TANNER T ORDERABLES Final Result * POCT Glucose (04/05/2025 11:54 AM EDT) Only the most recent of2 resultswithin the time period is included. Pathologist [facility] Glucose Blood, POC 184 60 - 200 mg/dL QC Analyze Re Lot # [id number] Lot# Expiration Date Blood Capillary blood specimen / Unknown 04/05/2025 11:54 AM EDT Lorene [email or web address] DO POINT OF CARE TEST ENTER/TANNER T ORDERABLES Final Result * (ABNORMAL) Urinalysis, Complete, with Reflex to Culture (03/27/2025 11:36 PM EDT) Only the most recent of2 resultswithin the time period is included. Color Urine Dark Yellow [facility] Appearance Urine Cloudy [facility] PH 6.0 5.0 - 9.0 [facility] Glucose Urine UA Negative Negative mg/dL [facility] Urine Blood Negative Negative [facility] Specific [place] - Urine 1.025 1.005 - 1.025 [facility] Urine Protein Trace Neg-Trace mg/dL [facility] Urine Ketones Trace Negative mg/dL [facility] Nitrite Urine Negative Negative [facility] Leukocyte Esterase Urine Moderate (2+)(A) Negative [facility] RBC Urine 0-2 0 - 2 /HPF [facility] Urine WBC 6-10 0 - 5 /HPF [facility] Urine Squamous Epithelial Cell 11-20 0 - 2 /HPF [facility] CALCIUM OXALATE CRYSTAL, UR Present [facility] Urine Bacteria Trace None Seen [facility] Hyaline Casts, Urine 0-2 0 - 2 /LPF [facility] 03/27/2025 11:3 6 PM EDT 03/27/2025 11:43 PM EDT Narrative [facility] - 03/27/2025 11:56 PM EDT [id number], Clean Catch us Generic External Data Provider LAB URINE ORDERAB LES Final Result [facility] [address] [place] [phone] * SARS-CoV-2 RNA, Influenza A/B, and RSV RNA, Ql NAAT (03/27/2025 11:26 PM EDT) Only the most recent of2 resultswithin the time period is included. Influenza A PCR NEGATIVE Negative [facility] Influenza B PCR NEGATIVE Negative [facility] Resp Syncy Virus RNA Qual PCR NEGATIVE Negative [facility] SARS COV2 PCR NEGATIVE Negative [facility] Comment:All test results mus t be [...] use by authorized laboratories.Testing performed on the [employer] GeneXpert utilizingreal-time RT-PCR.All SARS CoV2 and positive influenza A/B results arereported to [facility]. 03/27/2025 11:2 6 PM EDT 03/27/2025 11:28 PM EDT us Generic External Data Provider LAB MICROBIOLOGY - GENERAL ORDERABLES Final Result [facility] [address] [place] [phone] * CBC auto differential (03/27/2025 11:26 PM EDT) Only the most recent of3 resultswithin the time period is included. Pathologist [facility] White Blood Count 9.9 4.8 - 10.8 X10*3/uL [facility] Red Blood Count 4.34 4.20 - 5.50 X10*6/uL [facility] Hemoglobin 12.3 12.0 - 16.0 g/dl [facility] Hematocrit 37.2 37.0 - 47.0 % [facility] Mean Corpuscular Volume 85.7 80.0 - 98.0 fL [facility] Mean Corpuscular Hemoglobin 28.3 27.0 - 33.0 pg [facility] Mean Corpuscular HGB Conc 33.1 31.0 - 35.0 g/dl [facility] Red Cell Distribution Width 13.1 11.0 - 16.0 % [facility] Platelet Count 215 160 - 400 X10*3/uL [facility] Mean Platelet Volume 10.3 9.4 - 12.3 fL [facility] Neutrophils Percent Auto 63.5 45 - 73 % [facility] Imm Gran Pct Auto 0.2 0.0 - 0.4 % [facility] Lymphocytes Percent Auto 26.8 20 - 40 % [facility] Monocytes Percent Auto 8.5 2 - 11 % [facility] Eosinophils Percent Auto 0.8 0 - 4 % [facility] Basophils Percent Auto 0.2 0 - 2 % [facility] NRBC Pct Auto 0.0 0.0 - 0.2 /100WBC [facility] Neutrophils Absolute Auto 6.3 2.0 - 8.3 x10*3/uL [facility] Imm Gran Abs Auto 0.02 0.00 - 0.03 X10*3/uL [facility] Lymphocytes Absolute Auto 2.7 1.2 - 4.9 X10*3/uL [facility] Monocytes Absolute Auto 0.8 0.1 - 1.2 X10*3/uL [facility] Eosinophils Absolute Auto 0.1 0.0 - 0.4 X10*3/uL [facility] Basophils Absolute Auto 0.0 0.0 - 0.2 X10*3/uL [facility] NRBC Abs Auto 0.000 0.0 - 0.012 X10*3/uL [facility] 03/27/2025 11:2 6 PM EDT 03/27/2025 11:29 PM EDT us Generic External Data Provider LAB BLOOD ORDERAB LES Final Result [facility] [address] [place] [phone] * (ABNORMAL) Comprehensive Metabolic Panel (03/27/2025 11:26 PM EDT) Only the most recent of3 resultswithin the time period is included. Sodium 143 135 - 145 mmol/L [facility] Potassium 3.5 3.3 - 5.1 mmol/L [facility] Chloride 107 96 - 108 mmol/L [facility] Carbon Dioxide 25 22 - 29 mmol/L [facility] Anion Gap 15 12 - 20 [facility] Urea Nitrogen (BUN) 14 9 - 16 mg/dL [facility] Creatinine, Serum 0.62 0.5 - 1.4 mg/dL [facility] Creatinine Clr Calc Pharmacy 84.7 [facility] Comment:Provided height and weight: 152.4 cm,82.1 kg.eGFR (calculated from the MDRD study equation) and eCrCl(calculated from the Cockcroft-Gault equation) are based ondifferent parameters and may not yield comparable results.If eCrCl result is absurd, please check patient'sheight/weight. Estimated Glomerular Filt Rate >60 [facility] Comment:Chronic Kidney Disea se: Estimated GFR < 60 mL/min/1.65e2Umltqe Kidney Disease: Estimated GFR < 15 mL/min/1.73m2 Glucose 140(H) 60 - 115 mg/dL [facility] Calcium 8.6 8.4 - 10.2 mg/dL [facility] Bilirubin, Total 0.4 0.0 - 1.0 mg/dL [facility] Aspartate Amino Transferase 26 5 - 31 U/L [facility] Alanine Aminotransferase 23 0 - 31 U/L [facility] Total Protein 7.1 6.5 - 8.0 g/dL [facility] Albumin Level 4.0 3.5 - 5.0 g/dL [facility] Alkaline Phosphatase 83 39 - 117 U/L [facility] 03/27/2025 11:2 6 PM EDT 03/27/2025 11:29 PM EDT us Generic External Data Provider LAB BLOOD ORDERAB LES Final Result Performing Organization Address City/[facility]/ZIP Co de Phone Number [facility] [address] [place] [phone] * Culture, Urine, Routine (03/27/2025 12:00 AM EDT) Only the most recent of2 resultswithin the time period is included. Urine Urine specimen obtained by clean catch procedure / Unknown 03/27/2025 03/27/2025 Comment:[facility] Narrative [facility] - 03/29/2025 11:26 AM EDT Lactobacillus species Quant 50,000 to 100,000 cfu/mL Specimen Source: Urine clean catch us Generic External Data Provider LAB MICROBIOLOGY - GENERAL ORDERABLES Final Result [facility] [address] [place] [phone] * CT Abdomen Pelvis w/ Contrast (03/17/2025 8:22 AM EDT) Anatomical Region Laterality Modality Body, Pelvis, Abdomen Computed T omography 03/17/2025 8:22 AM EDT Narrative 03/17/2025 8:59 AM EDT ? [facility] ?[address] ?[place], [place] [address] ? CT Scan Report ? Signed ? Patient: Chapin,Cheryl I ?MR#: [id number] ?? 96 ? : 1960 ?Acct:[id number] ? Age/Sex: 64 / F ?ADM Date: 03/17/25 ? Loc: HO.ED ? Attending Dr: ? Ordering Physician: Ethan Lester MD ?? Date of Service: 03/17/25 ?? Procedure(s): CT abdomen pelvis w IV con ?? Accession Number(s): [id number] ? cc: Lorene Lugo DO; Ethan Lester MD ? Report Number: ?? [id number]: Total DLP = ??707.00 mGy-cm ?? EXAMINATION: [...] ??Tung King MD ??03/17/2025 08:56 AM EDT ?? RP ? Dictated By: ?Tung King MD ? Signed By: ?<Electronically signed by Tung King MD in OV> ?03/17/25 0856 ? DD/ 0822 ? TD/TT: 03/17/25 0839 ? Tax Accounting Assistant: ? Procedure Note Donotuseinterpreter, Image - 03/17/[address] [address] [address] Scan Report Signed Patient: Cheryl Samson IMR#: [id number] [birth year] : 9Acct:[id number] Age/Sex: 64 / FADM Date: 03/17/25 Loc: HO.ED Attending Dr: Ordering Physician: Ethan Lester MD Date of Service: 03/17/25 Procedure(s): CT abdomen pelvis w IV con Accession Number(s): [id number] cc: Lorene Lugo DO; Ethan Lester MD Report Number: [id number]: Total DLP = 707.00 mGy-cm EXAMINATION: CT [...] King MD in OV> 03/17/25 0856 DD/ 0822 TD/TT: 03/17/25 0839 Tax Accounting Assistant: [facility] External Provider IMG CT PROCEDURES Edited Result - Final * (ABNORMAL) Urinalysis Complete (02/14/2025 3:51 AM EDT) Color Urine Yellow [facility] Appearance Urine Cloudy [facility] PH 7.0 5.0 - 9.0 [facility] Glucose Urine UA Negative Negative mg/dL [facility] Urine Blood Negative Negative [facility] Specific [place] - Urine 1.010 1.005 - 1.025 [facility] Urine Protein Negative Neg-Trace mg/dL [facility] Urine Ketones Negative Negative mg/dL [facility] Nitrite Urine Negative Negative [facility] Leukocyte Esterase Urine Small (1+)(A) Negative [facility] RBC Urine 0-2 0 - 2 /HPF [facility] Urine WBC 0-5 0 - 5 /HPF [facility] Urine Squamous Epithelial Cell 0-2 0 - 2 /HPF [facility] Other Crystals Urine Present [facility] Urine Bacteria None Seen None Seen [facility] Hyaline Casts, Urine 0-2 0 - 2 /LPF [facility] 02/14/2025 3:5 1 AM EDT 02/14/2025 3:59 AM EDT Generic External Data Provider LAB URINE ORDERAB LES Final Result Performing Organization Address [facility] Co de Phone Number [facility] [address] [place] [phone] * Strep A Nucleic Acid (02/14/2025 3:44 AM EDT) IDNOW SERIAL# [id number] [facility] Strep A Nucleic Acid Negative Negative [facility] Comment:All test results mus t be correlated with clinical findings.This test has not been evaluated for monitoring treatment ofinfection.Additional follow-up testing using the culture method isrequired if the result is negative and clinical symptomspersist, or in the event of an acute rheumatic feveroutbreak. 02/14/2025 3:44 AM EDT 02/14/2025 3:59 AM EDT Generic External Data Provider LAB MICROBIOLOGY - GENERAL ORDERABLES Final Result Performing Organization Address [facility]/ZIP Co de Phone Number [facility] [address] [place] [phone] [phone] * (ABNORMAL) POCT glycosylated hemoglobin (Hgb A1c) (01/27/2025 9:01 AM EST) Hemoglobin A1C 6.6(A) 4.0 - 6.0 % QC Media Lot # [id number] Lot# Expiration Date [id number] Blood Capillary blood specimen / Unknown 01/27/2025 9:01 AM EST Lorene Lugo DO POINT OF CARE TEST ENTER/TANNER T ORDERABLES Final Result * (ABNORMAL) Lipid Panel, Standard (10/21/2024 10:04 AM EST) Triglycerides 131 <150 mg/dL [facility] Comment:Desirable Triglyceri de: less than 150 mg/dLBorderline High Triglyceride 150-199 mg/dLHigh Triglyceride: 200-499 mg/dLVery High Triglyceride: greater than or equal to 5OO mg/dL Cholesterol 170 <200 mg/dL [facility] Comment:Desirable Cholestero l: less than 200 mg/dLBorderline High Cholesterol: 200-239 mg/dLHigh Cholesterol: greater than 239 mg/dL LDL Cholesterol Calculated 104(H) <100 mg/dL [facility] Comment:Desirable LDL: less than 100 mg/dLNear Optimal/Above Optimal LDL: 110- 129 mg/dLBorderline High LDL: 130-159 mg/dLHigh LDL: 160-189 mg/dLVery High LDL: greater than or equal to 190 mg/dL HDL Cholesterol 40(L) >40 mg/dL [facility] Comment:Desirable HDL: great er than 40 mg/dL Note: This HDL assay may give artificially low results in patients with liver disease. Blood Venous blood specimen / Unknown 10/21/2024 10:04 AM EST 10/21/2024 11:05 AM EST Lorene Lugo DO LAB BLOOD ORDERABLES Final R esult [facility] [address] [place] [phone] * BI Mammogram Screening Tomosynthesis Bilateral (09/15/2024 9:52 AM EDT) Anatomical Region Laterality Modality Breast Bilateral Mammography 09/15/2024 9:52 AM EDT Narrative 09/27/2024 12:30 PM EDT ? [facility] ? [address] ?[place] [address] ? Mammography Report ? Signed with Addenda ? Patient: Chapin,Cehryl I ?MR#: [id number] ?? 96 ? : 1960 ?Acct:[id number] ? Age/Sex: 63 / F ?ADM Date: 09/15/24 ? Loc: HO.MAMMO ? Attending Dr: Lorene Lugo DO ? Ordering Physician: Lorene Lugo DO ?Results: 1N ?? egative ? Date of Service: 09/15/24 ?Follow Up: 1 Year From Orig ?? inal Mammogram ? Procedure(s): MM tomosynthesis screening BI ?? Accession Number(s): [id number] ? cc: Lorene Lugo DO ?ADDENDUM ? [...] ??Audrey Ambrosio DO ??09/30/2024 10:49 AM EDT ?? RP ? Addendum Dictated By: ?Audrey Ambrosio, DO ? Addendum Signed By: ? <Electronically signed by Audrey Ambrosio, DO in OV> ? 09/30/249 ?? Addendum Cosigned By: ? DD/ ? [...] ??Audrey Ambrosio DO ??09/27/2024 12:27 PM EDT ? Dictated By: ?Audrey Ambrosio DO ? Signed By: ?<Electronically signed by Audrey Ambrosio, DO in OV> ? 09/27/24 1227 ? DD/ 0952 ? TD/TT: 09/15/24 1010 ? Tax Accounting Assistant: ? Procedure Note Tatyana, Image - 09/30/2024 [place] [facility] [address] [place], [place] [address] Mammography Report Signed with Corrieenda Patient: Cheryl Samson IMR#: [id number] 96 : 9Acct:[id number] Age/Sex: 63 / FADM Date: 09/15/24 Loc: [facility].MAMMO Attending Dr: Lorene Lugo DO Ordering Physician: Lorene Lugoults: 1N egative Date of Service: 09/15/24Follow Up: 1 Year From Orig inal Mammogram Procedure(s): MM tomosynthesis screening BI Accession Number(s): [id number] cc: Lorene Lugo DO ADDENDUM ADDENDUM #1 ADDENDUM: Due to a software issue related to the original report, this case has been reviewed again and the original findings and recommendations remain the same. OVERALL ASSESSMENT: BI-RADS 1 - Negative RECOMMENDATION: 1 year F/U Electronically signed by: Audrey Ambrosio DO 09/30/2024 10:49 AM EDT RP Addendum Dictated By: Audrey Ambrosio DO Addendum [...] their next mammogram. Electronically signed by: Audrey Abmrosio DO 09/27/2024 12:27 PM EDT RP Dictated By: Audrey Ambrosio DO Signed By: <Electronically signed by Audrey Ambrosio DO in OV> 09/27/24 1227 DD/ 1 TD/TT: 09/15/24 101 Tax Accounting Assistant: Lorene Lugo DO IMG BI PROCEDURES Edited Res ult - Final * (ABNORMAL) Cologuard?? colon cancer screening (03/04/2024 3:00 PM EDT) Cologuard Result Positive( A) Negative 03/10/2024 10:28 AM EDT [facility] (CLIA #:[id number]) Comment: POSITIVE TEST RESULT. A positive Cologuard [...] screened with both Cologuard and colonoscopy. (Dominique Rivers et al, N Engl J Med 2014;370(14):5862-8327.) Cologuard may produce a false negative or false positive result (no colorectal cancer or precancerous polyp present at colonoscopy follow up). A negative Cologuard test result does not guarantee the absence of CRC or advanced adenoma (pre-cancer). The current Cologuard screening interval is every 3 years. ([place] [employer] and U.S. Multi-Society Task Force). Cologuard performance data in a 10,000 patient pivotal study using colonoscopy as the reference method can be accessed at the following location: www.[employer]results. Additional description of the Cologuard test process, warnings and precautions can be found at www.cologuard.com. Stool specimen (specimen) 03/04/2024 3:00 PM EDT 03/05/2024 11:39 AM EDT Lorene Lugo DO LAB MOLECULAR DIAGNOSTICS OR DERABLES Final Result Performing Organization Address City/[facility]/ZIP Co de Phone Number [employer] (CLIA #:[id number]) [place] [address], * Hepatitis C Antibody with Reflex to HCV RNA,PCR w/Reflex to Genotype, LiPA (01/23/2023 8:47 AM EST) Pathologist [facility] Hepatitis C Antibody NON-REACT MARCE NON-REACT MARCE [employer] [place] [employer] Index <0.02 <1.00 [facility] [place] [facility] Comment: HCV antibody was non-reactive. There is no laboratory evidence of HCV infection. In most cases, no further action is required. However, if recent HCV exposure is suspected, a test for HCV RNA (test code 40521) is suggested. For additional information, please refer to http://education.TapTrak/faq/IXT378 (This link is being provided for informational/ educational purposes only.) 01/23/2023 8:47 AM EST 01/23/2023 8:48 AM EST Narrative [facility] - 01/24/2023 6:35 PM EST FASTING:YES FASTING: YES Lorene Lugo DO LAB BLOOD ORDERABLES Final R esult Performing Organization Address City/[facility]/ZIP Co de Phone Number [facility] [address], [place] [address] [employer] [place] [facility] [address] [facility], (Nl2) [place] [address] * Thinprep PAP, HPV mRNA E6/E7 RFX HPV 16,18/45, Chlamydia/N. Gonorrhoeae (01/16/2023 10:19 AM EST) Pathologist [facility] Clinical Information: SREENIN PAP [employer] [place] [facility] LMP: NONE GIVEN [employer] [place] Cash Check Card-[employer] Prev. PAP: YES [employer] [place] [employer] Prev. BX: NO [employer] [place] [facility] SOURCE: Cervix [facility] [employer] [facility] [place] [facility] Statement Of Adequacy: SATISFACTORY FOR EVALUATION Partially obscuring inflammation [facility] [employer] [place] [facility] Interpretation/Re sult: [employer] [place] [employer] Comment: Negative for intraepithelial lesion or malignancy. Atrophic pattern; predominantly parabasal cells Client Technologies Analyst: Quirino pack [employer] [place] [employer] Comment: KR, CT(ASCP) CT screening location: [address] ??[address] (Always Message) [facility] [place] [facility] Comment: EXPLANATORY NOTE: The Pap is a [...] HPV nRNA E6/E7 Not Detected Not Detected [employer] Comment: Methodology: Clinical Laboratory Assistant-Mediated Amplification This assay detects E6/E7 viral messenger RNA (mRNA) from 14 high-risk HPV types (16,18,31,33,35,39,45,51,52,56,58,59,66,68). Cervical sources are required for HPV testing. If a vaginal source from a patient who has had a total hysterectomy with removal of cervix was submitted, please contact the testing laboratory for alternative testing options. For additional information, please refer to http://education.Moodsnap/faq/CAX354e8 (This link if provided for information/ educational purposes only.) Chlamydia trachomatis RNA, TMA, Urogenital NOT DETECTED NOT DETECTED [employer] [place] [employer] Neisseria gonorrhoeae RNA, TMA, Urogenital NOT DETECTED NOT DETECTED [employer] (Always Message) Que [facility] [place] [facility] Comment: The analytical performance characteristics of this assay, when used to test SurePath(TM) specimens have been determined by [employer]. The modifications have not been cleared or approved by the FDA. This assay has been validated pursuant to the CLIA regulations and is used for clinical purposes. For additional information, please refer to https://education.Passlogix.[employer]Rx [employer]/faq/MRU340 (This link is being provided for information/ educational purposes only.) Specimen from uterine cervix (specimen) 01/16/2023 10:19 AM EST 01/19/2023 12:52 AM EST Lorene Lugo DO LAB PATHOLOGY ORDERABLES Fin al Result [facility] [address] [facility], [facility], [place] [address] [employer] [facility] [address] [facility], ([address]2) [place] [address] * Colonoscopy (12/13/2014) Colonoscopy Normal Normal Comment:Hyperplastic polyps 10yr 12/13/2014 Lauro Paredes MD HEALTH MAINTENANCE Final Res ult from Last 3 Months or Most Recently Relevant to Health Maintenance Insurance [facility] INTERMEDIATE OPTIONS (O D-SNP) [place] [id number] Care Teams Brim Stitcher Relationship Specialty Start Date End Date Lorene Lugo DO [address] [place] [address] PCP - General Family Medicine 11/30/18 Keiko Bowman PharmD [address] [place] [address] Pharmacist Internal Medicine 06/19/23
--- OUTSIDE RECORDS SUMMARY | 2025-04-05 18:06 | XMS_ITS | Encounter Summary ---
Author Organization [employer] Address [address] [facility] 7t [place] [address] Care Team Providers Care Paramedical Aide Name Role Phone Lorene Lugo DO Primary Care Provider [phone] Keiko Bowman PharmD Unavailable Reason for Visit * Reason Onset Date Comments Chart Prep 04/03/2025 Encounter Details Date Type Department Care Team ([facility] st Contact Info) Description 04/03/2025 Telephone [facility] [address] [place], [place] [phone] Lorene Lugo DO [address] [place], [place] [phone] Chart Prep Social History Tobacco Use Types Packs/Day Years [...] encounter Miscellaneous Notes * Telephone Encounter - Yelena Almonte [place] - 04/03/2025 3:30 PM EDT Chart Prep Labs: done Images: done CT Abdomen Report-03/17/25([facility]) Referrals: not applicable Vaccines due: Covid and Hep A Screenings: eye exam and foot exam Overdue care gaps: A1c, Glucose, SBIRT, SDOH, PHQ-9, DONIS-7, and Oral health screening documented in this encounter Plan of Treatment Upcoming Encounters Date Type Department Care Team (Late st Contact Info) Description 04/10/2025 9:30 AM EDT Medication Management [facility] [address] [place] [address] Keiko Bowman PharmD [address] [place] [address] documented as of this encounter Goals Goal Patient Goal Type Associated Problems Recent Progress Patient-Stated? Author Blood Pressure < 140/90 Blood Pressure 124/70(2024 11:52 AM EDT) No Alo Freitas, PharmD Record your blood pressure at least once per week Blood Pressure Worsening(11/2022 9:44 AM EDT) No Keiko Bowman PharmD Hemoglobin A1c < 7 Result Component 6.2( 5 11:55 AM EDT) No Alo Freitas PharmD Record your blood sugar as directed Result Component On track( 023 9:44 AM EDT) No Keiko Bowman PharmD documented as of this encounter Visit Diagnoses Not on filedocumented in this encounter Additional Health Concerns Assessment Noted Time PHQ-9 Depression Total Score: 0 08/25/20 23 9:41 AM EDT documented as of this encounter Care Teams Paramedical Aide Relationship Specialty Start Date End Date Lorene Lugo DO [address] [place] [address] PCP - General Family Medicine 11/30/18 Keiko Bowman PharmD [address] [place] [address] Pharmacist Internal Medicine 06/19/23 documented as of this encounter
--- OUTSIDE RECORDS SUMMARY | 2025-04-05 18:06 | XMS_ITS | Encounter Summary ---
Author Organization [employer] Address [address] [facility] 7t [place] [address] Care Team Providers Care Janitor And Cleaner Name Role Phone Lorene Lugo DO Primary Care Provider [phone] Keiko Bowman PharmD Unavailable Reason for Visit * Reason Onset Date Comments Appointment Request 02/01/2024 Encounter Details Date Type Department Care Team ([facility] st Contact Info) Description 02/01/2024 Telephone [facility] [address] [place], [place] [phone] Lorene Lugo DO [address] [place], [place] [phone] Appointment Request Social History Tobacco Use Types [...] a DM follow up appt with PCP. Bilingual Medical Receptionist verify notes from last visit on 08/25/2023 pcp put appt should be around 12/25 but we can't schedule [place] appts. Bilingual Medical Receptionist advised someone will be calling to schedule appt. documented in this encounter Plan of Treatment Upcoming Encounters Date Type Department Care Team (Late st Contact Info) Description 04/10/2025 9:30 AM EDT Medication Management [facility] [address] [place] [address] Keiko Bowman PharmD [address] [place] [address] documented as of this encounter Goals Goal Patient Goal Type Associated Problems Recent Progress Patient-Stated? Author Blood Pressure < 140/90 Blood Pressure 124/70(2024 11:52 AM EDT) No Alo Freitas PharmDillon Record your blood pressure at least once per week Blood Pressure Worsening(11/2022 9:44 AM EDT) No Keiko Bowman PharmDillon Hemoglobin A1c < 7 Result Component 6.2(05/07/202 5 11:55 AM EDT) No Alo Freitas PharmD Record your blood sugar as directed Result Component On track( 023 9:44 AM EDT) No Keiko Bowman PharmD documented as of this encounter Visit Diagnoses Not on filedocumented in this encounter Additional Health Concerns Assessment Noted Time PHQ-9 Depression Total Score: 0 08/25/20 23 9:41 AM EDT documented as of this encounter Care Teams Janitor And Cleaner Relationship Specialty Start Date End Date Lorene Lugo DO [address] [place] [address] PCP - General Family Medicine 11/30/18 Keiko Bowman PharmD [address] [place] [address] Pharmacist Internal Medicine 06/19/23 documented as of this encounter
--- OUTSIDE RECORDS SUMMARY | 2025-04-05 18:06 | XMS_ITS ---
Author Organization [facility] Address [address] [place] [address] Care Team Providers Care Flat Lock Machine Operator Name Role Phone Brittney James, Anna Marie Primary Care Provider Lauro Lock Jr Unavailable REASON FOR VISIT POSITIVE COLOGUARD Encounters Encounter Location Date Provider Diagnosis [facility] [address] [place], [place] [phone] 04/22/2024 Lauro Paredes Jr Encounter for screening colonoscopy Z12.11 and Colon polyps K63.5 Assessments Encounter Date Diagnosis (ICD Code) Assessment Notes Treatment Notes Treatment Clinical Notes Section Notes 04/22/2024 Encounter for screening colonoscopy (ICD-10 - Z12.11) 04/22/2024 Colon polyps (ICD-10 - K63.5) Plan Of Treatment No Information Progress Notes * ARMIN ALEXANDRA IDOB: 9 (64 yo F)Acc No.[id number]:04/22/2024 COLON WITH MAC Patient:?ARMIN ALEXANDRA Kahn Provider:?Lauro Paredes MD :1960???Age:63 Y???Sex:Female D ate:04/22/2024 Address:[address] [place] [address], [facility] Pcp:Anna Marie Lugo M.D. Subjective: * Chief Complaints: * ???1. POSITIVE COLOGUARD. * Medical History:? Objective: * Vitals:? Assessment: * Assessment: 1.?Encounter for screening c olonoscopy - Z12.11 (Primary)???2.?Colon polyps - K63.5??? Plan: * Treatment: * Procedure Codes:?27232 LESIO N REMOVAL COLONOSCOPY, 60808 COLONOSCOPY AND BIOPSY, Modifiers: 59 * * The named appointment provid er may or may not be the originator of this progress note, and it is not deemed complete until electronically signed by the appointment provider. Sign off status: Pending * Provider:?Lauro Paredes MD Date:?0 04/22/2024 Generated for Mariano knox/Radha/Annitting on:?04/05/2025 06:06 PM EDT
--- OUTSIDE RECORDS SUMMARY | 2025-04-05 18:06 | XMS_ITS | Encounter Summary ---
Author Organization [employer] Address [address] [place] [address] 7t [place] [address] Care Team Providers Care Director Enterprise Systems Name Role Phone Lorene Lugo DO Primary Care Provider Keiko Bowman PharmD Unavailable [phone] Reason for Referral * Consultation (STAT) - Pending Review Specialty Diagnoses / Procedures Referred By Chantell finn Referred To Contact Gastroenterology Diagnoses Epigastric pain Lorene Lugo DO [address] [place] [address] Phone: tel: fax: Referral ID Status Reason Start Date Expiration Date Visits Requested Visits Authorized [id number] Pending Review Specialty Services Required 04/05/2025 04/05/2026 1 1 Encounter Details Date Type Department Care Team (Late st Contact Info) Description 04/05/2025 11:00 AM EDT Office Visit [facility] [address] [place], [place] [phone] Lorene Lugo DO [address] [place], [place] [phone] Epigastric pain (Primary Dx); Fatigue, unspecified type; Type 2 diabetes mellitus with diabetic microalbuminuria, without long-term current use of insulin ([facility]) Social History Tobacco Use Types Packs/Day Years [...] AM EDT documented as of this encounter Last Filed Vital Signs Vital Sign Reading [...] Mass Index 37.6 04/05/2025 11:52 AM EDT documented in this encounter Plan of Treatment Upcoming Encounters Date Type Department Care Team (Late st Contact Info) Description 04/10/2025 9:30 AM EDT Medication Management [facility] [address] [place] [address] Keiko Bowman, PharmD [address] [place] [address] Scheduled Orders Name Type Priority Associated Diagnoses Orde r Schedule CBC auto differential Lab Routine Epigastric pain Fatigue, unspecified type Type 2 diabetes mellitus with diabetic microalbuminuria, without long-term current use of insulin ([facility]) Expected: 04/05/2025 (Approximate), Expires: 04/05/2026 Vitamin B12 (Cobalamin) and Folate Panel, Serum Lab Routine Epigastric pain Fatigue, unspecified type Type 2 diabetes mellitus with diabetic microalbuminuria, without long-term current use of insulin (CMS/HCC) Expected: 04/05/2025, Expires: 04/05/2026 Ferritin Lab Routine Epigastric pain Fatigue, unspecified type Type 2 diabetes mellitus with diabetic microalbuminuria, without long-term current use of insulin (CMS/HCC) Expected: 04/05/2025, Expires: 04/05/2026 Iron And Total Iron Binding Capacity Lab Routine Epigastric pain Fatigue, unspecified type Type 2 diabetes mellitus with diabetic microalbuminuria, without long-term current use of insulin (CMS/HCC) Expected: 04/05/2025, Expires: 04/05/2026 T4, Free Lab Routine Epigastric pain Fatigue, unspecified type Type 2 diabetes mellitus with diabetic microalbuminuria, without long-term current use of insulin (CMS/HCC) Expected: 04/05/2025 (Approximate), Expires: 04/05/2026 Lipid Panel, Standard Lab Routine Epigastric pain Fatigue, unspecified type Type 2 diabetes mellitus with diabetic microalbuminuria, without long-term current use of insulin (CMS/HCC) Expected: 04/05/2025 (Approximate), Expires: 04/05/2026 TSH Lab Routine Epigastric pain Fatigue, unspecified type Type 2 diabetes mellitus with diabetic microalbuminuria, without long-term current use of insulin (CMS/HCC) Expected: 04/05/2025 (Approximate), Expires: 04/05/2026 Vitamin D, 25-Hydroxy, Total, Immunoassay Lab Routine Epigastric pain Fatigue, unspecified type Type 2 diabetes mellitus with diabetic microalbuminuria, without long-term current use of insulin ([facility]) Expected: 04/05/2025 (Approximate), Expires: 04/05/2026 Hepatic Function Panel Lab Routine Epigastric pain Fatigue, unspecified type Type 2 diabetes mellitus with diabetic microalbuminuria, without long-term current use of insulin ([facility]) Expected: 04/05/2025 (Approximate), Expires: 04/05/2026 Hemoglobin A1c Lab Routine Epigastric pain Fatigue, unspecified type Type 2 diabetes mellitus with diabetic microalbuminuria, without long-term current use of insulin ([facility]) Expected: 04/05/2025 (Approximate), Expires: 04/05/2026 Basic Metabolic Panel Lab Routine Epigastric pain Fatigue, unspecified type Type 2 diabetes mellitus with diabetic microalbuminuria, without long-term current use of insulin ([facility]) Expected: 04/05/2025 (Approximate), Expires: 04/05/2026 Helicobacter pylori, Urea Breath Test Lab Routine Epigastric pain Ordered: 04/05/2025 Helicobacter pylori, Urea Breath Test Lab Routine Epigastric pain Expected: 04/05/2025 (Approximate), Expires: 04/05/2026 Scheduled Referrals Name Type Priority Associated Diagnoses Order Schedule Referral to Gastroenterology Outpatient Referral STAT Epigastric pain Expected: 04/05/2025 (Approximate), Expires: 04/05/2026 documented as of this encounter Goals Goal Patient Goal Type Associated Problems Recent Progress Patient-Stated? Author Blood Pressure < 140/90 Blood Pressure 124/70(2024 11:52 AM EDT) No Alo Freitas, PharmD Record your blood pressure at least once per week Blood Pressure Worsening(11/2022 9:44 AM EDT) No Keiko Bowman, PharmDillon Hemoglobin A1c < 7 Result Component 6.2( 11:55 AM EDT) No Alo Freitas, PharmD Record your blood sugar as directed Result Component On track( 023 9:44 AM EDT) No Keiko Bowman PharmD documented as of this encounter Procedures Procedure Name Priority Date/Time Associated Diagnosis Comments POCT GLYCATED HEMOGLOBIN, TOTAL Routine 04/05/2025 11:55 AM EDT Type 2 diabetes mellitus with diabetic microalbuminuria, without long-term current use of insulin ([facility]) POCT GLUCOSE Routine 04/05/2025 11:54 AM EDT Type 2 diabetes mellitus with diabetic microalbuminuria, without long-term current use of insulin ([facility]) documented in this encounter Results * (ABNORMAL) POCT HGB A1C (04/05/2025 11:55 AM EDT) Hemoglobin A1C 6.2(A) 4.0 - 6.0 % QC Media Lot # [id number] Lot# Expiration Date Blood 04/05/2025 11:5 5 AM EDT Lorene Lugo DO POINT OF CARE TEST ENTER/TANNER T ORDERABLES Final Result * POCT Glucose (04/05/2025 11:54 AM EDT) Glucose Blood, POC 184 60 - 200 mg/dL QC Media Lot # [id number] Lot# Expiration Date Blood Capillary blood specimen / Unknown 04/05/2025 11:54 AM EDT Lorene Lugo DO POINT OF CARE TEST ENTER/TANNER T ORDERABLES Final Result documented in this encounter Visit Diagnoses Diagnosis Epigastric pain- Primary Abdominal pain, epigastric Fatigue, unspecified type Type 2 diabetes mellitus with diabetic microalbuminuria, without long-term current use of insulin ([facility]) documented in this encounter Additional Health Concerns Assessment Noted Time PHQ-9 Depression Total Score: 0 08/25/20 23 9:41 AM EDT documented as of this encounter Care Teams Director Enterprise Systems Relationship Specialty Start Date End Date Lorene Lugo DO [address] [place] [address] PCP - General Family Medicine 11/30/18 Keiko Bowman, PharmD [address] [place] [address] Pharmacist Internal Medicine 06/19/23 documented as of this encounter
--- OUTSIDE RECORDS SUMMARY | 2025-04-05 18:06 | XMS_ITS ---
Author Organization [facility] Address [address] [place] [address] Care Team Providers Care Bed Teacher Name Role Phone Anna Marie Lugo M.D. Primary Care Provider Lauro Lock Jr REASON FOR VISIT medication adjustments for colonoscopy Encounters Encounter Location Date Provider Diagnosis [facility] [address] [place] [address] 03/10/2024 Lauro Paredes Jr Plan Of Treatment No Information Progress Notes * ALEXANDRA FUNEZ IDOB: 9 (63 yo F)Acc No.[id number]:03/10/2024 Patient:?ALEXANDRA FUNEZ I :1960???Age:63 Y???Sex:Female Address:[address] [facility] [address] [address] , [place] [address] * true * Date:? Generated for Mariano knox/Radha/eTransmitting on:?04/05/2025 08:54 AM EDT
--- OUTSIDE RECORDS SUMMARY | 2025-04-05 18:06 | XMS_ITS | Encounter Summary ---
Author Organization [employer] Address [address] [place] [address] 7t [place] [address] Care Team Providers Care Golf Stud Riveter Name Role Phone Lorene Lugo DO Primary Care Provider Dellogono Alo PharmD Unavailable Unavail able Puia, Keiko PharmD Unavailable Encounter Details Date Type Department Care Team (Late st Contact Info) Description 12/30/2022 Telephone [facility] [address] [place] [address] Lorene Lugo DO [address] [place] [address] Social History Tobacco Use Types Packs/Day Years [...] Description 04/10/2025 9:30 AM EDT Medication Management [facility] [address] [place] [address] Puia, Keiko, PharmD [address] [place] [address] documented as of this encounter Visit Diagnoses Not on filedocumented in this encounter Care Teams Golf Stud Riveter Relationship Specialty Start Date End Date Lorene Lugo DO [address] [place] [address] PCP - General Family Medicine 11/30/18 Alo Freitas, EdsonD [address] [place] [address] Pharmacist Internal Medicine 02/11/23 06/18/23 Keiko Bowman PharmD [address] [place] [address] Pharmacist Internal Medicine 06/19/23 documented as of this encounter
--- OUTSIDE RECORDS SUMMARY | 2025-04-05 18:06 | XMS_ITS ---
Author Organization [facility] Address [address] [place] [address] Care Team Providers Care Shot Grinder Operator Name Role Phone Anna Marie Lugo M.D. Primary Care Provider Lauro Lock Jr REASON FOR VISIT pathology Encounters Encounter Location Date Provider Diagnosis [facility] [address] [place] [address] 05/05/2024 Lauro Paredes Jr Plan Of Treatment No Information Progress Notes * ALEXANDRA FUNEZ IDOB: [birth year] (63 yo F)Acc No.[id number]:05/05/2024 Patient:?ALEXANDRA FUNEZ I :1960???Age:63 Y???Sex:Female Address:[address] [facility] [facility] [address], [place] [address] * true * Date:? Generated for Mariano knox/Radha/eTransmitting on:?04/05/2025 08:54 AM EDT
--- OUTSIDE RECORDS SUMMARY | 2025-04-05 18:06 | XMS_ITS | Encounter Summary ---
Author Organization [employer] Address [address] [place] [address] 7t [place] [address] Care Team Providers Care Dredge Engineer Name Role Phone Lorene Lugo DO Primary Care Provider [phone] Dellogono Alo PharmD Unavailable Unavail able Puia, Keiko PharmD Unavailable Encounter Details Date Type Department Care Team (Late st Contact Info) Description 01/06/2023 Orders Only [facility] CHC MED & PEDS [address] [place] [address] Lorene Hollingsworth LPN Social History Tobacco Use [...] 9:30 AM EDT Medication Management [facility] MEDICINE 230 [place] [address] Puia, Keiko, PharmD [address] [place] [address] documented as of this encounter Procedures Procedure Name Priority Date/Time Associated Diagnosis Comments CULTURE, URINE, ROUTINE Routine 08/25/2023 9:49 AM EDT BINAXNOW COVID-19 AG Routine 07/07/2023 1:04 PM EDT documented in this encounter Results * Culture, Urine, Routine (08/25/2023 9:49 AM EDT) Urine Urine specimen obtained by clean catch procedure / Unknown 08/25/2023 9:49 AM EDT 08/25/2023 6:40 PM EDT Comment:UACC Narrative [facility] - 08/27/2023 11:24 AM EDT Urine Culture Report Result Urine Culture 10,000 to 50,000 cfu/ml Urine Culture Mixed bacterial meenu characteristic of Urine Culture urogenital contamination. Specimen Source: Urine clean catch Lorene Lugo DO LAB MICROBIOLOGY - GENERAL O RDERABLES Final Result Performing Organization Address [facility] de Phone Number [facility] [address] [place] [phone] * (ABNORMAL) BinaxNOW Covid-19 Ag (07/07/2023 1:04 PM EDT) BinaxNOW Covid-19 Ag Positive (A) Negative [facility] Comment:Result reported to [facility].All test results must be correlated with clinical findings.This test has been authorized by the FDA under an EmergencyUse Authorization(EUA)for use by authorized laboratories.Testing performed on the BinaxNow Covid-19 Ag Card which eva lateral flow immunoassay. The test does not differentiatebetween the SARS-CoV and SARS-COV-2. 07/07/2023 1:04 PM EDT 07/07/2023 1:34 PM EDT [facility] Exter nal Provider LAB BODY FLUIDS AND STOOLS ORDERABLES Final Result Performing Organization Address [facility] Co de Phone Number [facility] [address] [place] [phone] documented in this encounter Visit Diagnoses Not on filedocumented in this encounter Care Teams Dredge Engineer Relationship Specialty Start Date End Date Lorene Lugo DO [address] [place] [address] PCP - General Family Medicine 11/30/18 Alo Freitas, EdsonD [address] [place] [address] Pharmacist Internal Medicine 02/11/23 06/18/23 Keiko Bowman PharmD [address] [place] [address] Pharmacist Internal Medicine 06/19/23 documented as of this encounter
[2025-04-06 08:59] LABS: H Pylori Breath Test Negative (Negative)
== END 2025-04-05 18:04 | disposition home or self-care (01) ==
LOC: HO.HHCLNP 18:03
PROVIDERS: Visit Provider Family Medicine
DX: R10.13 Epigastric pain (principal)
CPT/HCPCS: 83013

== ENCOUNTER 2025-04-06 10:17 | Outpatient (REF) | payer OTHER, SELFPAY ==
[2025-04-06 11:09] LABS: MANUAL DIFF FLAG NO
[2025-04-06 11:12] LABS: Basophils Percent Auto 0.5 % (0-2); Eosinophils Absolute Auto 0.1 X10*3/uL (0.0-0.4); Eosinophils Percent Auto 1.5 % (0-4); Hematocrit 36.5 % (37.0-47.0); Hemoglobin 12.2 g/dl (12.0-16.0); Imm Gran Abs Auto 0.01 X10*3/uL (0.00-0.03); Imm Gran Pct Auto 0.2 % (0.0-0.4); Lymphocytes Absolute Auto 1.7 X10*3/uL (1.2-4.9); Lymphocytes Percent Auto 28.3 % (20-40); Mean Corpuscular HGB Conc 33.4 g/dl (31.0-35.0); Mean Corpuscular Hemoglobin 28.4 pg (27.0-33.0); Mean Corpuscular Volume 85.1 fL (80.0-98.0); Mean Platelet Volume 10.5 fL (9.4-12.3); Monocytes Absolute Auto 0.6 X10*3/uL (0.1-1.2); Monocytes Percent Auto 9.3 % (2-11); Neutrophils Absolute Auto 3.7 x10*3/uL (2.0-8.3); Neutrophils Percent Auto 60.2 % (45-73); Platelet Count 198 X10*3/uL (160-400); Red Blood Count 4.29 X10*6/uL (4.20-5.50); Red Cell Distribution Width 13.5 % (11.0-16.0); White Blood Count 6.1 X10*3/uL (4.8-10.8)
[2025-04-06 11:23] LABS: Estimated Average Glucose 131 mg/dL; Hemoglobin A1C 144.4063 umol/L; Hemoglobin A1c % 6.2 % (<6.0); Total Hemoglobin (HGBA1C) 3263.2445 umol/L
--- OUTSIDE RECORDS SUMMARY | 2025-04-06 11:27 | XMS_ITS | Encounter Summary ---
Author Organization [employer] Address 75 [facility] 7t [place] [address] Care Team Providers Care Gas Fitter Name Role Phone Lorene Lugo DO Primary Care Provider [phone] [phone] Keiko Bowman PharmD Unavailable Reason for Visit * Reason Comments Med Refill Encounter Details Date Type Department Care Team ([facility] st Contact Info) Description 08/12/2024 Refill [facility] CHC MED & PEDS 505 [place], [place] [phone] Ximena Florez FNP 505 [place], [place] [phone] Social History Tobacco Use Types Packs/Day Years [...] Description 04/10/2025 9:30 AM EDT Medication Management [facility] MEDICINE 230 [place] [address] PuiaKeiko, PharmD 230 [place] [address] documented as of this encounter Goals Goal Patient Goal Type Associated Problems Recent Progress Patient-Stated? Author Blood Pressure < 140/90 Blood Pressure 124/70(2024 11:52 AM EDT) No Dellogono, Alo, PharmD Record your blood pressure at least once per week Blood Pressure Worsening(11/2022 9:44 AM EDT) No Puia, Keiko, PharmD Hemoglobin A1c < 7 Result Component 6.2( 10:19 AM EDT) No Dellogono, Alo, PharmD Record your blood sugar as directed Result Component On track( 023 9:44 AM EDT) No Puia, Keiko, PharmD documented as of this encounter Visit Diagnoses Not on filedocumented in this encounter Additional Health Concerns Assessment Noted Time PHQ-9 Depression Total Score: 0 08/25/20 23 9:41 AM EDT documented as of this encounter Care Teams Gas Fitter Relationship Specialty Start Date End Date Lorene Lugo DO 230 [place], [place] [phone] PCP - General Family Medicine 11/30/18 Keiko Bowman, EdsonD [address] [place] [address] [place] [address] Pharmacist Internal Medicine 06/19/23 documented as of this encounter
--- OUTSIDE RECORDS SUMMARY | 2025-04-06 11:27 | XMS_ITS | Encounter Summary ---
Author Organization [employer] Address 75 [facility] 7t [place] [address] Care Team Providers Care Water Control Station Engineer Name Role Phone Lorene Lugo DO Primary Care Provider [phone]- [phone] Keiko Bowman PharmD Unavailable [phone] Reason for Visit * Reason Comments Med Refill Encounter Details Date Type Department Care Team ([facility] st Contact Info) Description 02/09/2025 Refill [facility] CHC MED & PEDS [address] [place], [place] [phone] Lorene Lugo DO [address] [place], [place] [phone] Healthcare maintenance Social History Tobacco Use Types [...] Description 04/10/2025 9:30 AM EDT Medication Management [facility] MEDICINE 230 [place] [address] PuiaKeiko, PharmD [address] [place] [address] documented as of this encounter Goals Goal [...] documented as of this encounter Care Teams Water Control Station Engineer Relationship Specialty Start Date End Date Lorene Lugo DO 230 [place] [address] PCP - General Family Medicine 11/30/18 Keiko Bowman, Sumit [address] [place] [address] Pharmacist Internal Medicine 06/19/23 documented as of this encounter
--- OUTSIDE RECORDS SUMMARY | 2025-04-06 11:27 | XMS_ITS | Encounter Summary ---
Author Organization [employer] Address 75 [facility] 7t [place] [address] Care Team Providers Care Tax Clerk Name Role Phone Lorene Lugo DO Primary Care Provider [phone] [phone] Keiko Bowman PharmD Unavailable [phone] Reason for Visit * Reason Onset Date Comments Request For Order(s) 02/22/2024 Encounter Details Date Type Department Care Team (Late st Contact Info) Description 02/22/2024 Telephone [facility] MEDICINE 230 [place], [place] [phone] Lorene Lugo DO 230 [place], [place] [phone] Request For Order(s) Social History Tobacco Use [...] 3:57 PM EDT TC placed to pt [phone] in regards to below message. Pt reports she has already called [facility] to cancel the colonoscopy. Pt informed [...] not feeling well. Please contact pt at [phone] documented in this encounter Plan of Treatment Upcoming Encounters Date Type Department Care Team (Late st Contact Info) Description 04/10/2025 9:30 AM EDT Medication Management [facility] MEDICINE [address] [place] [address] Keiko Bowman, PharmD 230 [place] [address] documented as of this encounter Goals Goal Patient Goal Type Associated Problems Recent Progress Patient-Stated? Author Blood Pressure < 140/90 Blood Pressure 124/70(2024 11:52 AM EDT) No Alo Freitas, PharmDillon Record your blood pressure at least once per week Blood Pressure Worsening(11/2022 9:44 AM EDT) No Keiko Bowman PharmD Hemoglobin A1c < 7 Result Component 6.2( 10:19 AM EDT) No Alo Freitas, PharmD Record your blood sugar as directed Result Component On track( 023 9:44 AM EDT) No Keiko Bowman PharmD documented as of this encounter Visit Diagnoses Not on filedocumented in this encounter Additional Health Concerns Assessment Noted Time PHQ-9 Depression Total Score: 0 08/25/20 9:41 AM EDT documented as of this encounter Care Teams Tax Clerk Relationship Specialty Start Date End Date Lorene Lugo DO 230 [place] [address] PCP - General Family Medicine 11/30/18 Keiko Bowman PharmD [address] [place] [phone] Pharmacist Internal Medicine 06/19/23 documented as of this encounter
--- OUTSIDE RECORDS SUMMARY | 2025-04-06 11:27 | XMS_ITS | Encounter Summary ---
Author Organization [employer] Address 75 [facility] 7t [place] [address] Care Team Providers Care Transfer Coordinator Name Role Phone Lorene Lugo DO Primary Care Provider [phone] Puia, Keiko PharmD Unavailable [phone] Reason for Visit * Reason Comments Med Refill Encounter Details Date Type Department Care Team (Late st Contact Info) Description 02/09/[address] [facility] MEDICINE 230 [place] [address] Puia, Keiko, PharmD 230 [place], [place] [phone] Social History Tobacco Use Types Packs/Day Years [...] intended per last CDTM plan) waiting for tow picker. This request for 2.5 mg was sent in error. No action required. documented in this encounter Plan of Treatment Upcoming Encounters Date Type Department Care Team (Late st Contact Info) Description 04/10/2025 9:30 AM EDT Medication Management [facility] MEDICINE [address] [place] [address] Keiko Bowman PharmD [address] [place] [address] documented as of this encounter Goals Goal Patient Goal Type Associated Problems Recent Progress Patient-Stated? Author Blood Pressure < 140/90 Blood Pressure 124/70(2024 11:52 AM EDT) No Alo Freitas PharmD Record your blood pressure at least once per week Blood Pressure Worsening(11/2022 9:44 AM EDT) No Keiko Bowman PharmD Hemoglobin A1c < 7 Result Component 6.2( 10:19 AM EDT) No Alo Freitas PharmD Record your blood sugar as directed Result Component On track( 023 9:44 AM EDT) No Keiko Bowman PharmD documented as of this encounter Visit Diagnoses Not on filedocumented in this encounter Additional Health Concerns Assessment Noted Time PHQ-9 Depression Total Score: 0 08/25/20 23 9:41 AM EDT documented as of this encounter Care Teams Transfer Coordinator Relationship Specialty Start Date End Date Lorene Lugo DO 230 [place] [address] PCP - General Family Medicine 11/30/18 Keiko Bowman PharmD 230 [place] [address] Pharmacist Internal Medicine 06/19/23 documented as of this encounter
--- OUTSIDE RECORDS SUMMARY | 2025-04-06 11:27 | XMS_ITS | Encounter Summary ---
Author Organization [employer] Address 75 [facility] 7t [place] [address] Care Team Providers Care Composition Board Press Operator Name Role Phone Lorene Lugo DO Primary Care Provider [phone] [phone] Keiko Bowman PharmD Unavailable [phone] Encounter Details Date Type Department Care Team (Late st Contact Info) Description 12/27/2024 Orders Only [facility] 230 [place] [address] Provider, MD Belinda Social History Tobacco Use [...] Management [facility] MEDICINE 230 [place] [address] Keiko Bowman PharmD [address] [place] [address] documented as of this encounter Goals Goal Patient Goal Type Associated Problems Recent Progress Patient-Stated? Author Blood Pressure < 140/90 Blood Pressure 124/70(2024 11:52 AM EDT) No Dellogono Alo, PharmD Record your blood pressure at least once per week Blood Pressure Worsening(11/2022 9:44 AM EDT) No PuiaNaderKeiko, PharmD Hemoglobin A1c < 7 Result Component 6.2( 10:19 AM EDT) No Dellogono Alo, PharmD Record [...] documented as of this encounter Care Teams Composition Board Press Operator Relationship Specialty Start Date End Date Lorene Lugo DO 230 [place] [address] PCP - General Family Medicine 11/30/18 Keiko Bowman PharmD [address] [place] [address] Pharmacist Internal Medicine 06/19/23 documented as of this encounter
--- OUTSIDE RECORDS SUMMARY | 2025-04-06 11:27 | XMS_ITS | Encounter Summary ---
Author Organization [employer] Address 75 [facility] 7t [place] [address] Care Team Providers Care Grinder Operator Tool Name Role Phone Lorene Lugo DO Primary Care Provider [phone] Keiko Bowman PharmD Unavailable [phone] Reason for Visit * Reason Comments Med Refill Encounter Details Date Type Department Care Team (Late st Contact Info) Description 12/28/[address] [facility] MEDICINE 230 [place], [place] [phone] Lorene Lugo DO 230 [place], [place] [phone] Social History Tobacco Use Types Packs/Day Years [...] 9:30 AM EDT Medication Management [facility] MEDICINE [address] [place] [address] PuiaNaderKeiko, PharmD [address] [place] [address] documented as of this encounter Goals Goal [...] documented as of this encounter Care Teams Grinder Operator Tool Relationship Specialty Start Date End Date Lorene Lugo DO 230 [place] [address] PCP - General Family Medicine 11/30/18 Keiko Bowman, EdsonD [address] [place] [address] Pharmacist Internal Medicine 06/19/23 documented as of this encounter
--- OUTSIDE RECORDS SUMMARY | 2025-04-06 11:27 | XMS_ITS | Patient Health Record ---
Author Organization [facility] Address [address] [place] [address] Care Team Providers Care Recovery Unit Operator Name Role Phone Anna Marie Lugo M.D. Primary Care Provider Lauro Lock Jr Unavailable [phone] Allergies Allergen (clinical drug ingredient) Drug/Non Drug Allergy documented on EMR Reaction Allergy Type Onset Date Status Motrin Unknown Drug Allergy Active Results Component Value Reference Range Notes Glucose, Whole Blood Reviewed date:04/22/2024 04:22:48 PM Interpretation: Performing Lab:[facility], [address] [place] [phone] Notes/Report: Glucose, Whole Blood 84 60-115 mg/dL METER # : [id number] Pathology Reviewed date:05/05/2024 01:16:40 PM Interpretation: Performing Lab:[facility], [address] [place] [phone] Notes/Report: ----- Name: ChapinAlexandra Femi Age/Sex: 63/F : 1960 Unit#: [id number] Attend Dr: Lauro Paredes MD Re04/22/24 Status : [facility] Location: [facility] Disch: ----- SPEC : [id number] REC STATUS: ANAID BETANCOURT NUM: [id number] [place]: 04/22/[address] [facility] [address]: Lauro Paredes MD ENTERED: 04/22/24 [...] B. CEDS Copies To: Lauro Paredes MD [address] [place] [address] [address] [place], [place] [phone] Anna Marie Lugo DO [address] [place] [address] CONTINUED ON NEXT PAGE ----- Name: Alexandra Samson I Age/Sex: 63/F : 1960 Unit#: [id number] Attend Dr: Lauro Paredes MD Re04/22/24 [place] [facility] [place] [facility] Disch: ----- SPEC : [id number] RECD : 04/22/24 STATUS: ANAID BETANCOURT NUM: [id number] [place]: 04/22/[address] [facility] [address]: Lauro Paredes MD ENTERED: 04/22/24 [...] Problem Status W/U Status Risk Notes Problem [id number] Constipation, unspecified constipation type (K59.00) Active confirmed Encounters Encounter Location Date Provider Diagnosis [facility] Outpatient [address] [place], [place] [id number] 04/22/2024 Lauro Paredes Jr Encounter for screening colonoscopy Z12.11 and Colon polyps K63.5 [facility] [address] [facility] [address] [place] [address] 05/05/2024 Lauro Paredes Jr Assessments Encounter Date [...] Insured Coverage Start Date Coverage End Date [facility] [address] Attn Claims [place] [id number] ALEXANDRA SAMSON Self - patient is the insured Medical (General) History Medical History History ICD Code Gastroesophageal reflux dise ase, EGD 07/07, no H. pylori or Davila's esophagus. Diabetes type 2 Nephrolithiasis Hyperlipidemia Mitral valve regurgitation Elevated body mass index Colonoscopy 12/14, hyperplastic polyps, t en-year followup Surgical History Surgery Date(Month/Year) tubal ligation
--- OUTSIDE RECORDS SUMMARY | 2025-04-06 11:27 | XMS_ITS | Encounter Summary ---
Author Organization [employer] Address 75 [facility] 7t [place] [address] Care Team Providers Care Commercial Drone Pilot Name Role Phone Lorene Lugo DO Primary Care Provider [phone] Keiko Bowman PharmD Unavailable Reason for Visit * Reason Comments Med Refill Encounter Details Date Type Department Care Team (Late st Contact Info) Description 04/13/2024 Refill [facility] CHC MED & PEDS [address] [place], [place] [phone] Lorene Lugo DO [address] [place], [place] [phone] Social History Tobacco Use Types Packs/Day Years [...] 9:30 AM EDT Medication Management [facility] MEDICINE [address] [place] [address] Keiko Bowman PharmD 230 [place] [address] documented as of this encounter Goals Goal [...] documented as of this encounter Care Teams Commercial Drone Pilot Relationship Specialty Start Date End Date Lorene Lugo DO 230 [place] [address] PCP - General Family Medicine 11/30/18 Keiko Bowman, Sumit [address] [place] [address] Pharmacist Internal Medicine 06/19/23 documented as of this encounter
--- OUTSIDE RECORDS SUMMARY | 2025-04-06 11:27 | XMS_ITS | Clinical Summary ---
Author Organization [facility] Address [address] [place] [address] Phone Care Team Providers Care Arborist Name Role Phone Lorene Lugo DO Primary Care Provider [phone] Social History Tobacco Use Types Packs/Day Years Used Date Smoking Tobacco: Never Assessed Comments Unknown Sex and Gender Information Value Date Recorded Sex Assigned at Not on file Legal Sex Female 10:48 PM EST Gender Identity Not on file Sexual Orientation Not on file Plan of Treatment Upcoming Encounters Date Type Department Care Team ([facility] Contact Info) Description 04/12/2025 9:15 AM EDT Consult Orthopedic Surgery - [place] [address] [phone] Eleuterio Santiago, DPM [address] [address] Health Maintenance Due Date Last Done Comments [...] ID:[id number] Group ID:[id number] Type:Not on file Address: [place] [address] [address] [address] MEDICAID - [place] Care Teams Arborist Relationship Specialty Start Date End Date Lorene Lugo DO [address] [place] [address] PCP - General Family Medicine 11/21/24
--- OUTSIDE RECORDS SUMMARY | 2025-04-06 11:27 | XMS_ITS | Encounter Summary ---
Author Organization [employer] Address 75 [facility] 7t [place] [address] Care Team Providers Care Cover Making Machine Operator Name Role Phone Lorene Lugo DO Primary Care Provider [phone] Keiko Bowman PharmD Unavailable [phone] Reason for Visit * Reason Comments Med Refill Encounter Details Date Type Department Care Team ([facility] st Contact Info) Description 09/24/2024 Refill [facility] CHC MED & PEDS [address] [place], [place] [phone] Lorene Lugo DO [address] [place], [place] [phone] Social History Tobacco Use Types Packs/Day Years [...] [facility] MEDICINE [address] [place] [address] Keiko Bowman PharmD [address] [place] [address] documented as of this encounter Goals Goal [...] documented as of this encounter Care Teams Cover Making Machine Operator Relationship Specialty Start Date End Date Lorene Lugo DO [address] [place] [address] PCP - General Family Medicine 11/30/18 Keiko Bowman, Sumit [address] [place] [address] Pharmacist Internal Medicine 06/19/23 documented as of this encounter
--- OUTSIDE RECORDS SUMMARY | 2025-04-06 11:27 | XMS_ITS | Encounter Summary ---
Author Organization [employer] Address [address] [facility] 7t [place] [address] Care Team Providers Care Appraiser Timber Name Role Phone Lorene Lugo DO Primary Care Provider [phone] Keiko Bowman PharmD Unavailable Reason for Visit * Reason Comments Med Refill Encounter Details Date Type Department Care Team ([facility] st Contact Info) Description 08/14/2024 Refill [facility] CHC MED & PEDS [address] [place], [place] [phone] Ximena Florez FNP [address] [place], [place] [phone] Social History Tobacco Use Types Packs/Day Years [...] Description 04/10/2025 9:30 AM EDT Medication Management [facility] MEDICINE [address] [place] [address] PuiaKeiko, PharmD [address] [place] [address] documented as of this encounter Goals Goal [...] documented as of this encounter Care Teams Appraiser Timber Relationship Specialty Start Date End Date Lorene Lugo DO [address] [place], [place] [phone] PCP - General Family Medicine 11/30/18 Keiko Bowman, EdsonD [address] [place] [address] [place] [address] Pharmacist Internal Medicine 06/19/23 documented as of this encounter
--- OUTSIDE RECORDS SUMMARY | 2025-04-06 11:28 | XMS_ITS | Encounter Summary ---
Author Organization [employer] Address 75 [facility] 7t [place] [address] Care Team Providers Care Railroad Wheels And Axles Inspector Name Role Phone Lorene Lugo DO Primary Care Provider [phone] Keiko Bowman PharmD Unavailable [phone] Reason for Visit * Reason Onset Date Comments Appointment Request 02/01/2024 Encounter Details Date Type Department Care Team ([facility] st Contact Info) Description 02/01/2024 Telephone [facility] MEDICINE [address] [place], [place] [phone] Lorene Lugo DO [address] [place], [place] [phone] Appointment Request Social History Tobacco Use Types [...] a DM follow up appt with PCP. Twitchell Operator verify notes from last visit on 08/25/2023 pcp put appt should be around 12/25 but we can't schedule [place] appts. Twitchell Operator advised someone will be calling to schedule appt. documented in this encounter Plan of Treatment Upcoming Encounters Date Type Department Care Team (Late st Contact Info) Description 04/10/2025 9:30 AM EDT Medication Management [facility] MEDICINE [address] [place] [address] Keiko Bowman PharmD [address] [place] [address] documented as of this encounter Goals Goal Patient Goal Type Associated Problems Recent Progress Patient-Stated? Author Blood Pressure < 140/90 Blood Pressure 124/70(2024 11:52 AM EDT) No Alo Freitas PharmDillon Record your blood pressure at least once per week Blood Pressure Worsening(11/2022 9:44 AM EDT) No Keiko Bowman PharmDillon Hemoglobin A1c < 7 Result Component 6.2(05/08/202 5 10:19 AM EDT) No Alo Freitas PharmD Record your blood sugar as directed Result Component On track( 023 9:44 AM EDT) No Keiko Bowman PharmD documented as of this encounter Visit Diagnoses Not on filedocumented in this encounter Additional Health Concerns Assessment Noted Time PHQ-9 Depression Total Score: 0 08/25/20 23 9:41 AM EDT documented as of this encounter Care Teams Railroad Wheels And Axles Inspector Relationship Specialty Start Date End Date Lorene Lugo DO [address] [place] [address] PCP - General Family Medicine 11/30/18 Keiko Bowman PharmD [address] [place] [address] Pharmacist Internal Medicine 06/19/23 documented as of this encounter
--- OUTSIDE RECORDS SUMMARY | 2025-04-06 11:28 | XMS_ITS ---
Author Organization [facility] Address [address] [place] [phone] Care Team Providers Care Egg Smeller Name Role Phone Brittney James, Anna Marie Primary Care Provider Lauro Lock Jr Unavailable REASON FOR VISIT POSITIVE COLOGUARD Encounters Encounter Location Date Provider Diagnosis [facility] [address] [place] [phone] 04/22/2024 Lauro Paredes Jr Encounter for screening colonoscopy Z12.11 and Colon polyps K63.5 Assessments Encounter Date Diagnosis (ICD Code) Assessment Notes Treatment Notes Treatment Clinical Notes Section Notes 04/22/2024 Encounter for screening colonoscopy (ICD-10 - Z12.11) 04/22/2024 Colon polyps (ICD-10 - K63.5) Plan Of Treatment No Information Progress Notes * ARMIN ALEXANDRA IDOB: [birth year] (64 yo F)Acc No.[id number]:04/22/2024 COLON WITH MAC Patient:?ARMIN ALEXANDRA Kahn Provider:?Lauro Paredes MD :[id number]???Age:63 Y???Sex:Female D ate:04/22/2024 Address:[address] [place] [address], [id number] Pcp:Anna Marie Lugo M.D. Subjective: * Chief Complaints: * ???1. POSITIVE COLOGUARD. * Medical History:? Objective: * Vitals:? Assessment: * Assessment: 1.?Encounter for screening c olonoscopy - Z12.11 (Primary)???2.?Colon polyps - K63.5??? Plan: * Treatment: * Procedure Codes:?05365 LESIO N REMOVAL COLONOSCOPY, 61220 COLONOSCOPY AND BIOPSY, Modifiers: 59 * * The named appointment provid er may or may not be the originator of this progress note, and it is not deemed complete until electronically signed by the appointment provider. Sign off status: Pending * Provider:?Lauro Paredes MD Date:?0 04/22/2024 Generated for Mariano knox/Radha/Annitting on:?04/06/2025 11:28 AM EDT
--- OUTSIDE RECORDS SUMMARY | 2025-04-06 11:28 | XMS_ITS | Encounter Summary ---
Author Organization [employer] Address [address] [place] [address] [address] [place] [address] Care Team Providers Care Securities Sales Associate Name Role Phone Lorene Lugo DO Primary Care Provider [phone] Keiko Bowman PharmD Unavailable Reason for Referral * Consultation (STAT) - Pending Review Specialty Diagnoses / Procedures Referred By Chantell finn Referred To Contact Gastroenterology Diagnoses Epigastric pain Lorene Lugo DO [address] [place] [address] Phone: tel: fax: Referral ID Status Reason Start Date Expiration Date Visits Requested Visits Authorized [id number] Pending Review Specialty Services Required 04/05/2025 04/05/2026 1 1 Encounter Details Date Type Department Care Team (Late st Contact Info) Description 04/05/2025 11:00 AM EDT Office Visit [facility] [address] [place], [place] [phone] Lorene Lugo DO [address], [place] [phone] Epigastric pain (Primary Dx); Fatigue, unspecified type; Type 2 diabetes mellitus with diabetic microalbuminuria, without long-term current use of insulin ([facility]) Social History Tobacco Use Types Packs/Day Years [...] Description 04/10/2025 9:30 AM EDT Medication Management [facility] [address] [place] [address] Keiko Bowman, PharmD [address] [place] [address] Scheduled Orders Name Type Priority Associated Diagnoses Orde r Schedule Vitamin B12 (Cobalamin) and Folate Panel, Serum Lab Routine Epigastric pain Fatigue, unspecified type Type 2 diabetes mellitus with diabetic microalbuminuria, without long-term current use of insulin ([facility]) Expected: 04/05/2025, Expires: 04/05/2026 Ferritin Lab Routine [...] insulin (CMS/HCC) Expected: 04/05/2025 (Approximate), Expires: 04/05/2026 Hepatic Function Panel Lab Routine Epigastric pain Fatigue, unspecified type Type 2 diabetes mellitus with diabetic microalbuminuria, without long-term current use of insulin ([facility]) Expected: 04/05/2025 (Approximate), Expires: 04/05/2026 Basic Metabolic Panel Lab Routine Epigastric pain Fatigue, unspecified type Type 2 diabetes mellitus with diabetic microalbuminuria, without long-term current use of insulin (CMS/HCC) Expected: 04/05/2025 (Approximate), Expires: 04/05/2026 Helicobacter pylori, [...] Procedure Name Priority Date/Time Associated Diagnosis Comments CBC WITH AUTO DIFFERENTIAL Routine 04/06/2025 10:19 AM EDT Epigastric pain Fatigue, unspecified type Type 2 diabetes mellitus with diabetic microalbuminuria, without long-term current use of insulin ([facility]) HEMOGLOBIN A1C Routine 04/06/2025 10:19 AM EDT Epigastric pain Fatigue, unspecified type Type 2 diabetes mellitus with diabetic microalbuminuria, without long-term current use of insulin ([facility]) HELICOBACTER PYLORI, UREA BREATH TEST Routine 04/05/2025 1:15 PM EDT Epigastric pain POCT GLYCATED HEMOGLOBIN, TOTAL Routine 04/05/2025 11:55 AM EDT Type 2 diabetes mellitus with diabetic microalbuminuria, without long-term current use of insulin ([facility]) POCT GLUCOSE Routine 04/05/2025 11:54 AM EDT Type 2 diabetes mellitus with diabetic microalbuminuria, without long-term current use of insulin ([facility]) documented in this encounter Results * (ABNORMAL) Hemoglobin A1c (04/06/2025 10:19 AM EDT) Hemoglobin A1c 6.2(H) <6.0 % [facility] Comment:Hemoglobin A1C Refer ence Range Adults: 4.8 - 6.0 % Non diabetic: < 6.0 % Goal: < 7.0 %Additional Action Suggested: > 8.0 %Note: Hemoglobin A1c results are invalid for patients with abnormal amounts of HbF. Blood transfusions may impact the HbA1c concentration in the patient sample. Estimated Average Glucose 131 mg/dL [facility] Comment:eAG = Estimated ave rage glucose which is %A1C expressed asaverage glucose, using the formula of the U7O-QqhvoiqCovndaj Glucose study (ADAG), Diabetes Care, Vol.31,#8,Aug. 2007 Blood Venous blood specimen / Unknown 04/06/2025 10:19 AM EDT 04/06/2025 11:05 AM EDT us Lorene Lugo DO LAB BLOOD ORDERABLES Final R esult [facility] [address] [place] [phone] * (ABNORMAL) CBC auto differential (04/06/2025 10:19 AM EDT) White Blood Count 6.1 4.8 - 10.8 X10*3/uL [facility] Red Blood Count 4.29 4.20 - 5.50 X10*6/uL [facility] Hemoglobin 12.2 12.0 - 16.0 g/dl [facility] Hematocrit 36.5(L) 37.0 - 47.0 % [facility] Mean Corpuscular Volume 85.1 80.0 - 98.0 fL [facility] Mean Corpuscular Hemoglobin 28.4 27.0 - 33.0 pg [facility] Mean Corpuscular HGB Conc 33.4 31.0 - 35.0 g/dl [facility] Red Cell Distribution Width 13.5 11.0 - 16.0 % [facility] Platelet Count 198 160 - 400 X10*3/uL [facility] Mean Platelet Volume 10.5 9.4 - 12.3 fL [facility] Neutrophils Percent Auto 60.2 45 - 73 % [facility] Imm Gran Pct Auto 0.2 0.0 - 0.4 % [facility] Lymphocytes Percent Auto 28.3 20 - 40 % [facility] Monocytes Percent Auto 9.3 2 - 11 % [facility] Eosinophils Percent Auto 1.5 0 - 4 % [facility] Basophils Percent Auto 0.5 0 - 2 % [facility] NRBC Pct Auto 0.0 0.0 - 0.2 /100WBC [facility] Neutrophils Absolute Auto 3.7 2.0 - 8.3 x10*3/uL [facility] Imm Gran Abs Auto 0.01 0.00 - 0.03 X10*3/uL [facility] Lymphocytes Absolute Auto 1.7 1.2 - 4.9 X10*3/uL [facility] Monocytes Absolute Auto 0.6 0.1 - 1.2 X10*3/uL [facility] Eosinophils Absolute Auto 0.1 0.0 - 0.4 X10*3/uL [facility] Basophils Absolute Auto 0.0 0.0 - 0.2 X10*3/uL [facility] NRBC Abs Auto 0.000 0.0 - 0.012 X10*3/uL [facility] Blood Venous blood specimen / Unknown 04/06/2025 10:19 AM EDT 04/06/2025 11:05 AM EDT Lorene Lugo NeuroDerm LAB BLOOD ORDERABLES Final R esult Performing Organization Address [facility] Co de Phone Number [facility] [address] [place] [phone] * Helicobacter pylori, Urea Breath Test (04/05/2025 1:15 PM EDT) H. pylori Breath Test Negative Negative [facility] Comment:Antimicrobials, prot on pump inhibitors and bismuthpreparations are known to suppress H. pylori. Ingestingthese medications within two weeks prior to performing thebreath test may produce negative test results. A positiveresult is still clinically valid. Breath Oral cavity structure / Unknown 04/05/2025 1:15 PM EDT 04/05/2025 6:03 PM EDT Lorene Gilesmalenaterri [place] LAB BLOOD ORDERABLES Final R esult Performing Organization Address [facility] Co de Phone Number [facility] [address] [place] [phone] * (ABNORMAL) POCT HGB A1C (04/05/2025 11:55 AM EDT) Hemoglobin A1C 6.2(A) 4.0 - 6.0 % QC Media Lot # [id number] Lot# Expiration Date , Blood 04/05/2025 11:5 5 AM EDT Lorenejerel Tranterri DO POINT OF CARE TEST ENTER/TANNER T ORDERABLES Final Result * POCT Glucose (04/05/2025 11:54 AM EDT) Glucose Blood, POC 184 60 - 200 mg/dL QC Media Lot # [id number] Lot# Expiration Date ,025 Blood Capillary blood specimen / Unknown 04/05/2025 11:54 AM EDT Lorene Lugo DO POINT OF CARE TEST ENTER/TANNER T ORDERABLES Final Result documented in this encounter Visit Diagnoses Diagnosis Epigastric pain- Primary Abdominal pain, epigastric Fatigue, unspecified type Type 2 diabetes mellitus with diabetic microalbuminuria, without long-term current use of insulin ([facility]) documented in this encounter Additional Health Concerns Assessment Noted Time PHQ-9 Depression Total Score: 0 08/25/20 9:41 AM EDT documented as of this encounter Care Teams Securities Sales Associate Relationship Specialty Start Date End Date Lorene Lugo DO [address] [place] [address] PCP - General Family Medicine 11/30/18 Keiko Bowman PharmD [address] [place] [phone] Pharmacist Internal Medicine 06/19/23 documented as of this encounter
--- OUTSIDE RECORDS SUMMARY | 2025-04-06 11:28 | XMS_ITS | Clinical Summary ---
Author Organization [employer] Address [address] [place] [address] 7[address] [place] [address] Care Team Providers Care Utilization Review Rn Name Role Phone Lorene Lugo DO Primary Care Provider [phone] Keiko Bowman PharmD Unavailable Allergies Active Allergy Reactions Criticality Noted Date Comments Goyo Inhibitors Cough Ibuprofen Rash Medium Other reaction(s): rash Other Reaction(s): Unknown Medications ascorbid acid ER (Vitamin C) 1000 MG ER tablet 1 tab by mouth daily OTC Active losartan (Cozaar) 50 MG tabletIndications:E ssential hypertension,Type 2 diabetes mellitus with diabetic microalbuminuria, without long-term current use of insulin ([facility]) Take 1 tablet (50 mg) by mouth Once daily. 90 tablet 3 024 Active glucose blood (FREESTYLE LITE) test stripIndications:Ty pe 2 diabetes mellitus with microalbuminuria, without long-term current use of insulin ([facility]) USE TO TEST BLOOD SUGAR TWICE DAILY [...] microalbuminuria, without long-term current use of insulin ([facility]) TAKE 1 TABLET BY MOUTH EVERY MORNING [...] microalbuminuria, without long-term current use of insulin ([facility]) USE TO TEST BLOOD SUGAR TWICE DAILY [...] Description 04/05/2025 11:00 AM EDT Office Visit [facility] [address] [place] [address] Lorene Lugo DO Epigastric pain (Primary Dx); Fatigue, unspecified type; Type 2 diabetes mellitus with diabetic microalbuminuria, without long-term current use of insulin ([facility]) 04/03/[address] [facility] [address] [place] [address] Lorene Lugo DO Chart Prep 03/30/[address] [facility] [address] [place] [address] Lorene Lugo DO 03/29/[address] [facility] [address] [place] [phone] Lorene Lugo DO ER Follow-up 03/27/2025 Orders Only GENERIC EXTERNAL DATA DEPARTMENT Provider, Generic External Data 03/17/2025 Orders Only GENERIC EXTERNAL DATA DEPARTMENT Provider, Generic External Data 03/16/[address] [address] Lorene Lugo DO Nurse Triage 03/10/[address] [facility] [address] [place], [place] [phone] Lorene Lugo DO Chronic gastroesophageal reflux disease 02/27/[address] [facility] [address] [place] [phone] Lorene Lugo DO Type 2 diabetes mellitus with microalbuminuria, without long-term current use of insulin ([facility]) 02/15/[address] [facility] [address] [place] [phone] Lorene Lugo DO ER Follow-up 02/14/2025 Orders Only GENERIC EXTERNAL DATA DEPARTMENT Provider, Generic External Data 02/09/[address] [facility] [address] [place] [phone] Keiko Bowman, PharmD 02/09/[address] [facility] [address] [place] [address] Lorene Lugo DO Healthcare maintenance 02/09/[address] [facility] [address] [place] [address] Lorene Lugo DO Healthcare maintenance 01/27/2025 9:00 AM EST Office Visit [facility] [address] [place] [address] Lorene Lugo DO Type 2 diabetes mellitus with diabetic microalbuminuria, without long-term current use of insulin ([facility]) (Primary Dx); Essential hypertension; Other hyperlipidemia; Fatty liver; Anxiety; Mitral valve insufficiency, unspecified etiology; Chronic gastroesophageal reflux disease; Chronic constipation; Sleep-disordered breathing; History of nephrolithiasis; Left leg pain; Healthcare maintenance 01/27/2025 Travel 01/24/2025 Travel 01/13/[address] [facility] [address] [place] [phone] Jayne Richardson MD 01/10/[address] [facility] [address] [place] [address] Lorene Lugo DO 01/10/2025 Travel from Last [...] the past 12 months, has t he [employer], gas, oil or water company threatened to [...] EDT Medication Management [facility] [address] [place], [place] [phone] Keiko Bowman, PharmD [address] [place], [place] [phone] Health Maintenance Due Date Last Done Comments [...] history exists Diabetes: Hemoglobin A1C 10/06/2025 025, 04/05/2025, 01/27/2025, Additional history exists Lipid Panel 10/21/2025 10/21/2024, [...] Procedure Name Priority Date/Time Associated Diagnosis Comments HEMOGLOBIN A1C Routine 04/06/2025 10:19 AM EDT Epigastric pain Fatigue, unspecified type Type 2 diabetes mellitus with diabetic microalbuminuria, without long-term current use of insulin ([facility]) CBC WITH AUTO DIFFERENTIAL Routine 04/06/2025 10:19 AM EDT Epigastric pain Fatigue, unspecified type Type 2 diabetes mellitus with diabetic microalbuminuria, without long-term current use of insulin ([facility]) HELICOBACTER PYLORI, UREA BREATH TEST Routine 04/05/2025 1:15 PM EDT Epigastric pain POCT GLYCATED HEMOGLOBIN, TOTAL Routine 04/05/2025 11:55 AM EDT Type 2 diabetes mellitus with diabetic microalbuminuria, without long-term current use of insulin ([facility]) POCT GLUCOSE Routine 04/05/2025 11:54 AM EDT Type 2 diabetes mellitus with diabetic microalbuminuria, without long-term current use of insulin ([facility]) URINALYSIS, COMPLETE, WITH REFLEX TO CULTURE Routine [...] microalbuminuria, without long-term current use of insulin ([facility]) POCT GLYCOSYLATED HEMOGLOBIN (HGB A1C) Routine 01/27/2025 9:01 AM EST Type 2 diabetes mellitus with diabetic microalbuminuria, without long-term current use of insulin ([facility]) POCT GLYCATED HEMOGLOBIN, TOTAL Routine 01/10/2025 9:20 AM EST Type 2 diabetes mellitus with diabetic microalbuminuria, without long-term current use of insulin ([facility]) LIPID PANEL, STANDARD Routine 10/21/2024 10:04 AM EST Type 2 diabetes mellitus with diabetic microalbuminuria, without long-term current use of insulin ([facility]) BI MAMMOGRAM SCREENING TOMOSYNTHESIS BILATERAL Routine 09/15/2024 [...] Relevant to Health Maintenance Results * (ABNORMAL) CBC auto differential (04/06/2025 10:19 AM EDT) Only the most recent of4 resultswithin the time period is included. White Blood Count 6.1 4.8 - 10.8 X10*3/uL [facility] Red Blood Count 4.29 4.20 - 5.50 X10*6/uL [facility] Hemoglobin 12.2 12.0 - 16.0 g/dl [facility] Hematocrit 36.5(L) 37.0 - 47.0 % [facility] Mean Corpuscular Volume 85.1 80.0 - 98.0 fL [facility] Mean Corpuscular Hemoglobin 28.4 27.0 - 33.0 pg [facility] Mean Corpuscular HGB Conc 33.4 31.0 - 35.0 g/dl [facility] Red Cell Distribution Width 13.5 11.0 - 16.0 % [facility] Platelet Count 198 160 - 400 X10*3/uL [facility] Mean Platelet Volume 10.5 9.4 - 12.3 fL [facility] Neutrophils Percent Auto 60.2 45 - 73 % [facility] Imm Gran Pct Auto 0.2 0.0 - 0.4 % [facility] Lymphocytes Percent Auto 28.3 20 - 40 % [facility] Monocytes Percent Auto 9.3 2 - 11 % [facility] Eosinophils Percent Auto 1.5 0 - 4 % [facility] Basophils Percent Auto 0.5 0 - 2 % [facility] NRBC Pct Auto 0.0 0.0 - 0.2 /100WBC [facility] Neutrophils Absolute Auto 3.7 2.0 - 8.3 x10*3/uL [facility] Imm Gran Abs Auto 0.01 0.00 - 0.03 X10*3/uL [facility] Lymphocytes Absolute Auto 1.7 1.2 - 4.9 X10*3/uL [facility] Monocytes Absolute Auto 0.6 0.1 - 1.2 X10*3/uL [facility] Eosinophils Absolute Auto 0.1 0.0 - 0.4 X10*3/uL [facility] Basophils Absolute Auto 0.0 0.0 - 0.2 X10*3/uL [facility] NRBC Abs Auto 0.000 0.0 - 0.012 X10*3/uL [facility] Blood Venous blood specimen / Unknown 04/06/2025 10:19 AM EDT 04/06/2025 11:05 AM EDT us Lorene Lugo DO LAB BLOOD ORDERABLES Final R esult [facility] [address] [place] [phone] * (ABNORMAL) Hemoglobin A1c (04/06/2025 10:19 AM EDT) Hemoglobin A1c 6.2(H) <6.0 % [facility] Comment:Hemoglobin A1C Refer ence Range Adults: 4.8 - 6.0 % Non diabetic: < 6.0 % Goal: < 7.0 %Additional Action Suggested: > 8.0 %Note: Hemoglobin A1c results are invalid for patients with abnormal amounts of HbF. Blood transfusions may impact the HbA1c concentration in the patient sample. Estimated Average Glucose 131 mg/dL [facility] Comment:eAG = Estimated ave rage glucose which is %A1C expressed asaverage glucose, using the formula of the Y0B-ObcpdjnQdfpvdh Glucose study (ADAG), Diabetes Care, Vol.31,#8,Jun. 2007 Blood Venous blood specimen / Unknown 04/06/2025 10:19 AM EDT 04/06/2025 11:05 AM EDT Lorene Lugo DO LAB BLOOD ORDERABLES Final R esult Performing Organization Address [facility] Co de Phone Number [facility] [address] [place] [phone] * Helicobacter pylori, Urea Breath Test (04/05/2025 1:15 PM EDT) H. pylori Breath Test Negative Negative [facility] Comment:Antimicrobials, prot on pump inhibitors and bismuthpreparations are known to suppress H. pylori. Ingestingthese medications within two weeks prior to performing thebreath test may produce negative test results. A positiveresult is still clinically valid. Breath Oral cavity structure / Unknown 04/05/2025 1:15 PM EDT 04/05/2025 6:03 PM EDT Lorene Lugo DO LAB BLOOD ORDERABLES Final R esult Performing Organization Address [facility] de Phone Number [facility] [address] [place] [phone] * (ABNORMAL) POCT HGB A1C (04/05/2025 [...] of2 resultswithin the time period is included. Glucose Blood, POC 184 60 - 200 [...] period is included. Color Urine Dark Yellow [facility] Appearance Urine Cloudy [facility] PH 6.0 5.0 - 9.0 [facility] Glucose Urine UA Negative Negative mg/dL [facility] Urine Blood Negative Negative [facility] Specific [place] - Urine 1.025 1.005 - 1.025 [facility] Urine Protein Trace Neg-Trace mg/dL [facility] Urine Ketones Trace Negative mg/dL [facility] Nitrite Urine Negative Negative [facility] Leukocyte Esterase Urine Moderate (2+)(A) Negative [facility] RBC Urine 0-2 0 - 2 /HPF [facility] Urine WBC 6-10 0 - 5 /HPF [facility] Urine Squamous Epithelial Cell 11-20 0 - 2 /HPF [facility] CALCIUM OXALATE CRYSTAL, UR Present [facility] Urine Bacteria Trace None Seen [facility] Hyaline Casts, Urine 0-2 0 - 2 /LPF [facility] 03/27/2025 11:3 6 PM EDT 03/27/2025 11:43 PM EDT Narrative [facility] - 03/27/2025 11:56 PM EDT [id number], Clean Catch Generic External Data Provider LAB URINE ORDERAB LES Final Result Performing Organization Address [facility] Co de Phone Number [facility] [address] [place] [phone] * SARS-CoV-2 RNA, Influenza A/B, and RSV RNA, Ql NAAT (03/27/2025 11:26 PM EDT) Only the most recent of2 resultswithin the time period is included. Pathologist [facility] Influenza A PCR NEGATIVE Negative [facility] Influenza B PCR NEGATIVE Negative [facility] Resp Syncy Virus RNA Qual PCR NEGATIVE Negative [facility] SARS COV2 PCR NEGATIVE Negative [facility] Comment:All test results mus t [...] use by authorized laboratories.Testing performed on the [employer] GeneXpert utilizingreal-time RT-PCR.All SARS CoV2 and positive influenza A/B results arereported to [facility]. 03/27/2025 11:2 6 PM EDT 03/27/2025 11:28 PM EDT Generic External Data Provider LAB MICROBIOLOGY - GENERAL ORDERABLES Final Result Performing Organization Address [facility]/ZIP Co de Phone Number [facility] [address] [place] [phone] * (ABNORMAL) Comprehensive Metabolic Panel (03/27/2025 11:26 PM EDT) Only the most recent of3 resultswithin the time period is included. Sodium 143 135 - 145 mmol/L [facility] Potassium 3.5 3.3 - 5.1 mmol/L [facility] Chloride 107 96 - 108 mmol/L [facility] Carbon Dioxide 25 22 - 29 mmol/L [facility] Anion Gap 15 12 - 20 [facility] Urea Nitrogen (BUN) 14 9 - 16 mg/dL [facility] Creatinine, Serum 0.62 0.5 - 1.4 mg/dL [facility] Creatinine Clr Calc Pharmacy 84.7 [facility] Comment:Provided height and weight: 152.4 cm,82.1 kg.eGFR (calculated from the MDRD study equation) and eCrCl(calculated from the Cockcroft-Gault equation) are based ondifferent parameters and may not yield comparable results.If eCrCl result is absurd, please check patient'sheight/weight. Estimated Glomerular Filt Rate >60 [facility] Comment:Chronic Kidney Disea se: Estimated GFR < 60 mL/min/1.17w6Dhjinz Kidney Disease: Estimated GFR < 15 mL/min/1.73m2 Glucose 140(H) 60 - 115 mg/dL [facility] Calcium 8.6 8.4 - 10.2 mg/dL [facility] Bilirubin, Total 0.4 0.0 - 1.0 mg/dL [facility] Aspartate Amino Transferase 26 5 - 31 U/L [facility] Alanine Aminotransferase 23 0 - 31 U/L [facility] Total Protein 7.1 6.5 - 8.0 g/dL [facility] Albumin Level 4.0 3.5 - 5.0 g/dL [facility] Alkaline Phosphatase 83 39 - 117 U/L [facility] 03/27/2025 11:2 6 PM EDT 03/27/2025 11:29 PM EDT us Generic External Data Provider LAB BLOOD ORDERAB LES Final Result [facility] [address] [place] [phone] [phone] * Culture, Urine, Routine (03/27/2025 12:00 AM EDT) Only the most recent of2 resultswithin the time period is included. Urine Urine specimen obtained by clean catch procedure / Unknown 03/27/2025 03/27/2025 Comment:UACC Narrative [facility] - 03/29/2025 11:26 AM EDT Lactobacillus species Quant 50,000 to 100,000 cfu/mL Specimen Source: Urine clean catch us Generic External Data Provider LAB MICROBIOLOGY - GENERAL ORDERABLES Final Result [facility] [address] [place] [phone] * CT Abdomen Pelvis w/ Contrast (03/17/2025 8:22 AM EDT) Anatomical Region Laterality Modality Body, Pelvis, Abdomen Computed T omography 03/17/2025 8:22 AM EDT Narrative 03/17/2025 8:59 AM EDT ? [facility] ?[address] ?[place] [address] ? CT Scan Report ? Signed ? Patient: Cheryl Samson I ?MR#: [id number] ?? 96 ? : 1960 ?Acct:[id number] ? Age/Sex: 64 / F ?ADM Date: 03/17/25 ? Loc: HO.ED ? Attending Dr: ? Ordering Physician: Ethan Lester MD ?? Date of Service: 03/17/25 ?? Procedure(s): CT abdomen pelvis w IV con ?? Accession Number(s): [id number] ? cc: Lorene Lugo DO; Ethan Lester MD ? Report Number: ?? [id number]: Total DLP = ??707.00 mGy-cm ?? EXAMINATION: [...] DD/ 0822 ? TD/TT: 03/17/25 0839 ? Accountant Bookkeeper: ? Procedure Note Tatyana, Chante - 03/17/[address] [place] [address] [address] Scan Report Signed Patient: Cheryl Samson IMR#: [id number] 96 : 9Acct:[id number] Age/Sex: 64 / FADM Date: 03/17/25 Loc: HO.ED Attending Dr: Ordering Physician: Ethan Lester MD Date of Service: 03/17/25 Procedure(s): CT abdomen pelvis w IV con Accession Number(s): [id number] cc: Lorene Lugo DO; Ethan Lester MD Report Number: [id number]: Total DLP = 707.00 mGy-cm EXAMINATION: CT [...] Tung King MD 03/17/2025 08:56 AM EDT Dictated By: Tung King MD Signed By: <Electronically signed by Tung King MD in OV> 03/17/25 0856 DD/ 0822 TD/TT: 03/17/25 0839 Accountant Bookkeeper: [facility] External Provider IMG CT PROCEDURES Edited Result - Final * (ABNORMAL) Urinalysis Complete (02/14/2025 3:51 AM EDT) Color Urine Yellow [facility] Appearance Urine Cloudy [facility] PH 7.0 5.0 - 9.0 [facility] Glucose Urine UA Negative Negative mg/dL [facility] Urine Blood Negative Negative [facility] Specific [place] - Urine 1.010 1.005 - 1.025 [facility] Urine Protein Negative Neg-Trace mg/dL [facility] Urine Ketones Negative Negative mg/dL [facility] Nitrite Urine Negative Negative [facility] Leukocyte Esterase Urine Small (1+)(A) Negative [facility] RBC Urine 0-2 0 - 2 /HPF [facility] Urine WBC 0-5 0 - 5 /HPF [facility] Urine Squamous Epithelial Cell 0-2 0 - 2 /HPF [facility] Other Crystals Urine Present [facility] Urine Bacteria None Seen None Seen [facility] Hyaline Casts, Urine 0-2 0 - 2 /LPF [facility] 02/14/2025 3:51 AM EDT 02/14/2025 3:59 AM EDT us Generic External Data Provider LAB URINE ORDERAB LES Final Result Performing Organization Address City/State/[facility] Co de Phone Number [facility] [address] [place] [phone] * Strep A Nucleic Acid (02/14/2025 3:44 AM EDT) IDNOW SERIAL# [id number] [facility] Strep A Nucleic Acid Negative Negative [facility] Comment:All test results mus t [...] LAB MICROBIOLOGY - GENERAL ORDERABLES Final Result [facility] [address] [place] [phone] * (ABNORMAL) POCT glycosylated hemoglobin (Hgb A1c) (01/27/2025 9:01 AM EST) Hemoglobin A1C 6.6(A) 4.0 - 6.0 % QC Media Lot # [id number] Lot# Expiration Date ,080 Blood Capillary blood specimen / Unknown 01/27/2025 9:01 AM EST Lorene Lugo DO POINT OF CARE TEST ENTER/TANNER T ORDERABLES Final Result * (ABNORMAL) Lipid Panel, Standard (10/21/2024 10:04 AM EST) Triglycerides 131 <150 mg/dL [facility] Comment:Desirable Triglyceri de: less than 150 mg/dLBorderline High Triglyceride 150-199 mg/dLHigh Triglyceride: 200-499 mg/dLVery High Triglyceride: greater than or equal to 5OO mg/dL Cholesterol 170 <200 mg/dL [facility] Comment:Desirable Cholestero l: less than 200 mg/dLBorderline High Cholesterol: 200-239 mg/dLHigh Cholesterol: greater than 239 mg/dL LDL Cholesterol Calculated 104(H) <100 mg/dL [facility] Comment:Desirable LDL: less than 100 mg/dLNear Optimal/Above Optimal LDL: 110- 129 mg/dLBorderline High LDL: 130-159 mg/dLHigh LDL: 160-189 mg/dLVery High LDL: greater than or equal to 190 mg/dL HDL Cholesterol 40(L) >40 mg/dL [facility] Comment:Desirable HDL: great er than 40 mg/dL Note: This HDL assay may give artificially low results in patients with liver disease. Blood Venous blood specimen / Unknown 10/21/2024 10:04 AM EST 10/21/2024 11:05 AM EST us Lorene Lugo DO LAB BLOOD ORDERABLES Final R esult [facility] [address] [place] [address] [phone] * BI Mammogram Screening Tomosynthesis Bilateral (09/15/2024 9:52 AM EDT) Anatomical Region Laterality Modality Breast Bilateral Mammography 09/15/2024 9:52 AM EDT Narrative 09/27/2024 12:30 PM EDT ? [facility] ? [address] ?[place] [address] ? Mammography Report ? Signed with Addenda ? Patient: Cheryl Samson I ?MR#: [id number] ?? 96 ? : 1960 ?Acct:[id number] ? Age/Sex: 63 / F ?ADM Date: 09/15/24 ? Loc: HO.MAMMO ? Attending Dr: Lorene Lugo DO ? Ordering Physician: Lorene Lugo DO ?Results: 1N ?? egative ? Date of Service: 09/15/24 ?Follow Up: 1 Year From Orig ?? inal Mammogram ? Procedure(s): MM tomosynthesis screening BI ?? Accession Number(s): [id number] ? cc: Lorene Lugo DO ?ADDENDUM ? [...] DD/ 0952 ? TD/TT: 09/15/24 1010 ? Accountant Bookkeeper: ? Procedure Note Tatyana, Image - 09/30/2024 [facility] [address] [place], [place] [address] Mammography Report Signed with Addenda Patient: Cheryl Samson IMR#: [id number] 96 : 9Acct:[id number] Age/Sex: 63 / FADM Date: 09/15/24 Loc: HO.MAMMO Attending Dr: Lorene Lugo DO Ordering Physician: Lorene Lugoults: 1N egative Date of Service: 09/15/24Follow Up: 1 Year From Orig ina Mammogram Procedure(s): MM tomosynthesis screening BI Accession Number(s): [id number] cc: Lorene Lugo DO ADDENDUM ADDENDUM #1 [...] 09/27/24 1227 DD/ 0952 TD/TT: 09/15/24 1010 Accountant Bookkeeper: us Lorene Brittney DO IMG BI PROCEDURES Edited Res ult - Final * (ABNORMAL) Cologuard?? colon cancer screening (03/04/2024 3:00 PM EDT) Cologuard Result Positive( A) Negative 03/10/2024 10:28 AM EDT [employer] (CLIA #:[id number]) Comment: POSITIVE TEST RESULT. A positive Cologuard [...] (Dominique Otto al, N Engl J Med 2014;370(14):8181-0095.) Cologuard may produce a false negative or false positive result (no colorectal cancer or precancerous polyp present at colonoscopy follow up). A negative Cologuard test result does not guarantee the absence of CRC or advanced adenoma (pre-cancer). The current Cologuard screening interval is every 3 years. ([place] [employer] and U.S. Multi-Society Task Force). Cologuard performance data in a 10,000 patient pivotal study using colonoscopy as the reference method can be accessed at the following location: www.[email or web address]results. Additional description of the Cologuard test process, warnings and precautions can be found at [email or web address] Stool specimen (specimen) 03/04/2024 3:00 PM EDT 03/05/2024 11:39 AM EDT Lorene Lugo DO LAB MOLECULAR DIAGNOSTICS OR DERABLES Final Result [employer] (CLIA #:[id number]) [place] [address], * Hepatitis C Antibody with Reflex to HCV RNA,PCR w/Reflex to Genotype, LiPA (01/23/2023 8:47 AM EST) Hepatitis C Antibody NON-REACT MARCE NON-REACT MARCE [employer] Index <0.02 <1.00 [facility] Comment: HCV antibody was non-reactive. There is no laboratory evidence of HCV infection. In most cases, no further action is required. However, if recent HCV exposure is suspected, a test for HCV RNA (test code 02060) is suggested. For additional information, please refer to http://education.[employer]/faq/QOE229 (This link is being provided for informational/ educational purposes only.) 01/23/2023 8:47 AM EST 01/23/2023 8:48 AM EST Narrative [facility] - 01/24/2023 6:35 PM EST FASTING:YES FASTING: YES Lorene Lugo DO LAB BLOOD ORDERABLES Final R esult [facility] [address] [place] [address] Utility Funding [address], ([address]) [place] [address] * Thinprep PAP, HPV mRNA E6/E7 RFX HPV 16,18/45, Chlamydia/N. Gonorrhoeae (01/16/2023 10:19 AM EST) Clinical Information: SREENIN PAP Utility Funding LMP: NONE GIVEN Utility Funding Prev. PAP: YES Utility Funding Prev. BX: NO Utility Funding SOURCE: [employer] Utility Funding Statement Of Adequacy: SATISFACTORY FOR EVALUATION Partially obscuring inflammation Utility Funding Interpretation/Re sult: Utility Funding Comment: Negative for intraepithelial lesion or malignancy. Atrophic pattern; predominantly parabasal cells Teamsite Developer: Quirino Earthineer Comment: KR CT(ASCP) CT screening location: [address] ??[phone] (Always Message) [facility] [employer] Comment: EXPLANATORY NOTE: The Pap is a [...] HPV nRNA E6/E7 Not Detected Not Detected Utility Funding Comment: Methodology: Extraction Operator-Mediated Amplification This assay detects E6/E7 viral messenger RNA (mRNA) from 14 high-risk HPV types (16,18,31,33,35,39,45,51,52,56,58,59,66,68). Cervical sources are required for HPV testing. If a vaginal source from a patient who has had a total hysterectomy with removal of cervix was submitted, please contact the testing laboratory for alternative testing options. For additional information, please refer to http://[employer] [place]/faq/JVO627i5 (This link if provided for information/ educational purposes only.) Chlamydia trachomatis RNA, TMA, Urogenital NOT DETECTED NOT DETECTED [facility] [place] [employer] Neisseria gonorrhoeae RNA, TMA, Urogenital NOT DETECTED NOT DETECTED [facility] [place] [employer] (Always Message) [facility] [place] [employer] [facility] Comment: The analytical performance characteristics of this assay, when used to test SurePath(TM) specimens have been determined by [facility]. The modifications have not been cleared or approved by the FDA. This assay has been validated pursuant to the CLIA regulations and is used for clinical purposes. For additional information, please refer to https://[employer] [place]/faq/QCC343 (This link is being provided for information/ educational purposes only.) Specimen from uterine cervix (specimen) 01/16/2023 10:19 AM EST 01/19/2023 12:52 AM EST Lorene Lugo DO LAB PATHOLOGY ORDERABLES Fin al Result [facility] [address], [place] [address] [facility] [place] [employer] [address] [facility], (Nl2) [place] [address] * Colonoscopy (12/13/2014) Colonoscopy Normal Normal Comment:Hyperplastic polyps 10yr 12/13/2014 Lauro Paredes MD HEALTH MAINTENANCE Final Res ult from Last 3 Months or Most Recently Relevant to Health Maintenance Insurance [facility] LONG-TERM OPTIONS (HMO D-SNP) [place] [id number] Care Teams Utilization Review Rn Relationship Specialty Start Date End Date Lorene Lugo DO [address] [place] [address] PCP - General Family Medicine 11/30/18 Keiko Bowman PharmD [address] [place] [address] Pharmacist Internal Medicine 06/19/23
--- OUTSIDE RECORDS SUMMARY | 2025-04-06 11:28 | XMS_ITS | Encounter Summary ---
Author Organization [employer] Address [address] [facility] 7t [place] [address] Care Team Providers Care Beveling And Edging Machine Operator Name Role Phone Lorene Lugo DO Primary Care Provider [phone] Keiko Bowman PharmD Unavailable Reason for Visit * Reason Comments Med Refill Encounter Details Date Type Department Care Team ([facility] st Contact Info) Description 07/13/2024 Refill [facility] [address] [place], [place] [phone] Ximena Florez FNP [address] [place], [place] [phone] Social History Tobacco Use Types Packs/Day Years [...] 9:30 AM EDT Medication Management [facility] [address] [place] [address] PuiaKeiko, PharmD [address] [place] [address] documented as of this encounter Goals Goal [...] documented as of this encounter Care Teams Beveling And Edging Machine Operator Relationship Specialty Start Date End Date Lorene Lugo DO [address] [place], [place] [phone] PCP - General Family Medicine 11/30/18 Keiko Bowman, EdsonD [address] [place] [address] [place] [address] Pharmacist Internal Medicine 06/19/23 documented as of this encounter
--- OUTSIDE RECORDS SUMMARY | 2025-04-06 11:28 | XMS_ITS ---
Author Organization [facility] Address [address] [place] [address] Care Team Providers Care Marketing Intern Name Role Phone Anna Marie Lugo M.D. Primary Care Provider Lauro Lock Jr REASON FOR VISIT pathology Encounters Encounter Location Date Provider Diagnosis [facility] [address] [place] [address] 05/05/2024 Lauro Paredes Jr Plan Of Treatment No Information Progress Notes * ALEXANDRA FUNEZ IDOB: 9 (63 yo F)Acc No.[id number]:05/05/2024 Patient:?ALEXANDRA FUNEZ I :1960???Age:63 Y???Sex:Female Address:[address], [place] [address] * true * Date:? Generated for Mariano knox/Radha/eTransmitting on:?04/06/2025 10:34 AM EDT
--- OUTSIDE RECORDS SUMMARY | 2025-04-06 11:28 | XMS_ITS | Encounter Summary ---
Author Organization [facility] [employer] Address [address] [facility] 7t [place] [address] Care Team Providers Care Launch Manager Name Role Phone Lorene Lugo DO Primary Care Provider [phone] Keiko Bowman PharmD Unavailable Reason for Visit * Reason Comments Med Refill Encounter Details Date Type Department Care Team (Late st Contact Info) Description 03/30/2025 Refill [facility] [address] [place], [place] [phone] Lorene Lugo DO [address] [place], [place] [phone] Social History Tobacco Use Types Packs/Day Years [...] Description 04/10/2025 9:30 AM EDT Medication Management [facility] [address] [place] [address] PuiaNaderKeiko, PharmD [address] [place] [address] documented as of this encounter Goals Goal [...] documented as of this encounter Care Teams Launch Manager Relationship Specialty Start Date End Date Lorene Lugo DO [address] [place] [address] PCP - General Family Medicine 11/30/18 Keiko Bowman, EdsonD [address] [place] [phone] Pharmacist Internal Medicine 06/19/23 documented as of this encounter
--- OUTSIDE RECORDS SUMMARY | 2025-04-06 11:28 | XMS_ITS | Encounter Summary ---
Author Organization [facility] [employer] Address [address] [place] [address] 7t [place] [address] Care Team Providers Care Supervisor Underwriting Clerks Name Role Phone Lorene Lugo DO Primary Care Provider [phone] Dellogono Alo PharmD Unavailable Unavail able Puia, Keiko PharmD Unavailable [phone] Encounter Details Date Type Department Care Team (Late st Contact Info) Description 01/06/2023 Orders Only [facility] PEDS [address] [place] [address] Lorene Hollingsworth LPN Social History Tobacco Use [...] Description 04/10/2025 9:30 AM EDT Medication Management [facility] [address] [place] [address] Puia, Keiko, PharmD [address] [place] [address] documented as of this encounter Procedures Procedure Name Priority Date/Time Associated Diagnosis Comments CULTURE, URINE, ROUTINE Routine 08/25/2023 9:49 AM EDT [facility] COVID-19 AG Routine 07/07/2023 1:04 PM EDT documented in this encounter Results * Culture, Urine, Routine (08/25/2023 9:49 AM EDT) Urine Urine specimen obtained by clean catch procedure / Unknown 08/25/2023 9:49 AM EDT 08/25/2023 6:40 PM EDT Comment:UACC Narrative [facility] - 08/27/2023 11:24 AM EDT Urine Culture Report Result Urine Culture 10,000 to 50,000 cfu/ml Urine Culture Mixed bacterial meenu characteristic of Urine Culture urogenital contamination. Specimen Source: Urine clean catch Lorene Lugo DO LAB MICROBIOLOGY - GENERAL O RDERABLES Final Result Performing Organization Address [facility] de Phone Number [facility] [address] [place] [phone] * (ABNORMAL) [facility]axNOW Covid-19 Ag (07/07/2023 1:04 PM EDT) [facility] Covid-19 Ag Positive (A) Negative [facility] Comment:Result reported to [facility].All test results must be correlated with clinical findings.This test has been authorized by the FDA under an EmergencyUse Authorization(EUA)for use by authorized laboratories.Testing performed on the BinaxNow Covid-19 Ag Card which eva lateral flow immunoassay. The test does not differentiatebetween the SARS-CoV and SARS-COV-2. 07/07/2023 1:04 PM EDT 07/07/2023 1:[address]T [facility] Exter nal Provider LAB BODY FLUIDS AND STOOLS ORDERABLES Final Result Performing Organization Address [facility] Co de Phone Number [facility] [address] [place] [phone] documented in this encounter Visit Diagnoses Not on filedocumented in this encounter Care Teams Supervisor Underwriting Clerks Relationship Specialty Start Date End Date Lorene Lugo DO [address] [place] [address] PCP - General Family Medicine 11/30/18 Alo Freitas, EdsonD [address] [place] [address] Pharmacist Internal Medicine 02/11/23 06/18/23 Keiko Bowman PharmD [address] [place] [address] Pharmacist Internal Medicine 06/19/23 documented as of this encounter
--- OUTSIDE RECORDS SUMMARY | 2025-04-06 11:28 | XMS_ITS ---
Author Organization [facility] Address [address] [place] [address] Care Team Providers Care Scraper Hand Name Role Phone Anna Marie Lugo M.D. Primary Care Provider Lauro Lock Jr [phone] REASON FOR VISIT medication adjustments for colonoscopy Encounters Encounter Location Date Provider Diagnosis [facility] [address] [place] [address] 03/10/2024 Lauro Paredes Jr Plan Of Treatment No Information Progress Notes * ALEXANDRA FUNEZ IDOB: [birth year] (63 yo F)Acc No.[id number]:03/10/2024 Patient:?ALEXANDRA FUNEZ I :1960???Age:63 Y???Sex:Female Address:[address] , [place] [address] * true * Date:? Generated for Mariano knox/Radha/eTransmitting on:?04/06/2025 10:34 AM EDT
--- OUTSIDE RECORDS SUMMARY | 2025-04-06 11:28 | XMS_ITS | Encounter Summary ---
Author Organization [employer] Address [address] [place] [address] 7t [place] [address] Care Team Providers Care High School Music Director Name Role Phone Lorene Lugo DO Primary Care Provider [phone] Dellogono Alo PharmD Unavailable Unavail able Puia, Keiko PharmD Unavailable [phone] Encounter Details Date Type Department Care Team (Late st Contact Info) Description 12/30/2022 Telephone [facility] [address] [place] [phone] Lorene Lugo DO [address] [place] [address] Social History Tobacco Use Types Packs/Day Years [...] Description 04/10/2025 9:30 AM EDT Medication Management [facility] [address] [place] [phone] Puia, Keiko, PharmD [address] [place] [address] documented as of this encounter Visit Diagnoses Not on filedocumented in this encounter Care Teams High School Music Director Relationship Specialty Start Date End Date Lorene Lugo DO [address] [place] [address] PCP - General Family Medicine 11/30/18 Alo Freitas, EdsonD [address] [place] [address] Pharmacist Internal Medicine 02/11/23 06/18/23 Keiko Bowman PharmD [address] [place] [address] Pharmacist Internal Medicine 06/19/23 documented as of this encounter
--- OUTSIDE RECORDS SUMMARY | 2025-04-06 11:28 | XMS_ITS | Encounter Summary ---
Author Organization [facility] [employer] Address [address] [facility] 7t [place] [address] Care Team Providers Care Membership Correspondent Name Role Phone Lorene Lugo DO Primary Care Provider [phone] Keiko Bowman PharmD Unavailable [phone] Reason for Visit * Reason Onset Date Comments Chart Prep 04/03/2025 Encounter Details Date Type Department Care Team ([facility] st Contact Info) Description 04/03/2025 Telephone [facility] [address] [place], [place] [phone] Lorene Lugo DO [address] [place], [place] [phone] Chart Prep Social History Tobacco Use Types [...] Prep Labs: done Images: done CT Abdomen Report-03/17/25[facility] Referrals: not applicable Vaccines due: Covid and Hep A Screenings: eye exam and foot exam Overdue care gaps: A1c, Glucose, SBIRT, SDOH, PHQ-9, DONIS-7, and Oral health screening documented in this encounter Plan of Treatment Upcoming Encounters Date Type Department Care Team (Late st Contact Info) Description 04/10/2025 9:30 AM EDT Medication Management [facility] [address] [place] [address] Keiko Bowman PharmD [address] [place] [address] documented as of this encounter Goals Goal Patient Goal Type Associated Problems Recent Progress Patient-Stated? Author Blood Pressure < 140/90 Blood Pressure 124/70(2024 11:52 AM EDT) No Alo Freitas, PharmD Record your blood pressure at least once per week Blood Pressure Worsening(11/2022 9:44 AM EDT) No Keiko Bowman PharmD Hemoglobin A1c < 7 Result Component 6.2( 5 10:19 AM EDT) No Alo Freitas PharmD Record your blood sugar as directed Result Component On track( 023 9:44 AM EDT) No Keiko Bowman PharmD documented as of this encounter Visit Diagnoses Not on filedocumented in this encounter Additional Health Concerns Assessment Noted Time PHQ-9 Depression Total Score: 0 08/25/20 23 9:41 AM EDT documented as of this encounter Care Teams Membership Correspondent Relationship Specialty Start Date End Date Lorene Lugo DO [address] [place] [phone] PCP - General Family Medicine 11/30/18 Keiko Bowman PharmD [address] [place] [address] Pharmacist Internal Medicine 06/19/23 documented as of this encounter
[2025-04-06 11:45] LABS: Alanine Aminotransferase 24 U/L (0-31); Albumin Level 3.8 g/dL (3.5-5.0); Alkaline Phosphatase 70 U/L (39-117); Anion Gap 11 (12-20); Aspartate Amino Transferase 26 U/L (5-31); Bilirubin Direct 0.2 mg/dL (0.0-0.5); Bilirubin Total 0.4 mg/dL (0.0-1.0); Blood Urea Nitrogen 12 mg/dL (9-16); Calcium 9.1 mg/dL (8.4-10.2); Carbon Dioxide 28 mmol/L (22-29); Chloride 108 mmol/L (96-108); Cholesterol 115 mg/dL (<200); Estimated Glomerular Filt Rate > 60; Ferritin 88 ng/mL (10-250); Free T4 (Free Thyroxine) 1.06 ng/dL (0.71-1.85); Glucose Random 107 mg/dL (60-115); HDL Cholesterol 40 mg/dL (>40); Iron 53 mcg/dL (30-160); LDL Cholesterol Calculated 61 mg/dL (<100); Percent Iron Saturation 22 % (15-50); Potassium 4.2 mmol/L (3.3-5.1); Sodium 143 mmol/L (135-145); Thyroid Stimulating Hormone 0.77 uIU/mL (0.32-4.0); Total Iron Binding Capacity 244 mcg/dL (228-428); Total Protein 6.9 g/dL (6.5-8.0); Triglycerides 74 mg/dL (<150); Unsaturated Iron Binding 191 ug/dL; Vitamin D 25-OH Total 63.1 ng/mL (>30)
[2025-04-06 11:56] LABS: Folate 14.4 ng/mL (> or = 4.0); Vitamin B12 1225 pg/mL (200-900)
== END 2025-04-06 10:18 | disposition home or self-care (01) ==
LOC: HO.HHCL 10:17
PROVIDERS: Visit Provider Family Medicine
DX: R10.13 Epigastric pain (principal); R53.83 Other fatigue; E11.29 Type 2 diabetes mellitus with other diabetic kidney complication; R80.9 Proteinuria, unspecified
CPT/HCPCS: 36415; 80048; 80061; 80076; 82306; 82607; 82728; 82746; 83036; 83540; 84439; 84443; 85025

== ENCOUNTER 2025-04-12 11:46 | Emergency (ER) | payer OTHER, SELFPAY ==
--- NOTE | ~2025-04-12 | CT_ITS ---
EXAMINATION: CT CERVICAL SPINE WITHOUT CONTRAST CLINICAL INFORMATION: Fall, head strike, neck pain. COMPARISON: None available. TECHNIQUE: Spiral CT imaging of the cervical spine performed in axial plane without contrast. Multiplanar reformatted images were constructed from the axial data set. This CT examination was performed using dose optimization techniques as appropriate, variously including the following: *Automated exposure control *Adjustment of mA and/or kV according to patient size (this includes techniques or standardized protocols for targeted exams where dose is matched to indication/reason for exam; i.e. extremities or head) *Use of iterative reconstruction technique FINDINGS: CORONAL ALIGNMENT: -Normal. SAGITTAL ALIGNMENT: -Normal lordosis. No traumatic subluxation. C1-C2 AND CRANIOCERVICAL JUNCTION: -Intact and normally aligned. VERTEBRAL BODIES AND FACETS: -No fractures, compression deformities, or suspicious bone lesions. No evidence of traumatic subluxation. -Normal facet alignment bilaterally. DISCS: -Mild disc degeneration noted C3-C7. CENTRAL CANAL: -No evidence of high-grade central canal narrowing or large disc herniation allowing for modality limitations. PREVERTEBRAL AND PARAVERTEBRAL SOFT TISSUES: -No prevertebral or paravertebral soft tissue swelling or edema. -Normal-appearing thyroid gland by CT. - No masses or abnormal lymph nodes. LUNG APICES: -Clear bilaterally. CT/CT cervical spine wo IV con IMPRESSION: 1. No CT evidence of acute cervical spine fracture or injury. Electronically signed by: Will Oneal MD 04/12/2025 01:29 PM EDT
--- NOTE | ~2025-04-12 | XR_ITS ---
EXAMINATION: XR TIBIA AND FIBULA, LEFT CLINICAL INFORMATION: Pain and injury. COMPARISON: None available. TECHNIQUE: AP and lateral views of the left tibia and fibula were obtained. FINDINGS: The bones and soft tissues are normal. No fracture. No osseous lesions. Mild degenerative changes at the tibiotalar joint. There are prominent plantar and dorsal calcaneal spurs incidentally noted. XR/XR tibia fibula LT 2V IMPRESSION: Normal left tibia and fibula. Electronically signed by: Will Oneal MD 04/12/2025 03:35 PM EDT
--- NOTE | ~2025-04-12 | CT_ITS ---
EXAMINATION: CT HEAD WITHOUT CONTRAST CLINICAL INFORMATION: Fall with head strike. COMPARISON: 08/09/2015 TECHNIQUE: Contiguous axial imaging was performed from the skull base to vertex without intravenous administration of contrast. This CT examination was performed using dose optimization techniques as appropriate, variously including the following: *Automated exposure control *Adjustment of mA and/or kV according to patient size (this includes techniques or standardized protocols for targeted exams where dose is matched to indication/reason for exam; i.e. extremities or head) *Use of iterative reconstruction technique FINDINGS: There is no evidence of intracranial hemorrhage or extra-axial fluid collection. There is no mass effect, or edema. No CT evidence of acute territorial infarct. Ventricles, sulci, and cisterns are normal in size and configuration for patient age. No hydrocephalus. No midline shift. Negative hyperdense MCA sign. Negative insular ribbon sign. No significant white matter abnormality. Normal pituitary. Globes and orbital contents image normally. No extracranial soft tissue abnormalities. The paranasal sinuses, mastoid air cells, and tympanic cavities are normally aerated. No suspicious bony abnormalities. There are no acute fractures evident. CT/CT head/brain wo IV con IMPRESSION: No acute intracranial abnormality. No fractures seen. Electronically signed by: Will Oneal MD 04/12/2025 01:26 PM EDT
[2025-04-12 11:49] VITALS: BP 144/67; PULSE 74; RESP 16; TEMP 36.6; O2SAT 97; BMI 38.6
--- NOTE | 2025-04-12 11:51 | ED_ITS ---
HPI - General Adult General Chief complaint: Fall Stated complaint: fall, leg numbness Time Seen by Provider: 04/12/25 14:51 Source: patient Mode of arrival: ambulatory Limitations: no limitations History of Present Illness ED Provider: Chrissie Hwang PA-C HPI narrative: Patient is a 64 year old assigned female at with a history of GERD, chronic cough, and carpal tunnel presenting to the emergency department today with left lower leg pain after falling backwards. Patient states that she tripped and fell backwards outside and hit her head but did not lose consciousness. Patient denies any dizziness, lightheadedness, abdominal pain, nausea, vomiting, fever, chills, blurry vision, double vision, loss of vision, chest pain, difficulty breathing, shortness of breath, back pain, night sweats, pain with urination, increased urinary frequency, increased urinary urgency, blood in her urine or stool, syncope or a near syncopal episode, bowel incontinence, bladder incontinence, or any other complaints at this time. Relieving factors: none Exacerbating factors: none Treatments prior to arrival: none Related Data Home Medications ?Medication ?Instructions ?Recorded ?Confirmed aspirin 81 mg tablet,delayed 81 mg PO DAILY 03/15/21 06/15/24 release atorvastatin 40 mg tablet 40 mg PO BEDTIME 03/15/21 06/15/24 cholecalciferol (vitamin D3) 50 50 mcg PO DAILY 03/15/21 06/15/24 mcg (2,000 unit) tablet docusate sodium 100 mg capsule 100 mg PO DAILY 03/15/21 06/15/24 multivitamin-ferrous 1 tab PO DAILY 03/15/21 06/15/24 fumarate-folic acid 18 mg-400 mcg tablet omeprazole 20 mg capsule,delayed 20 mg PO DAILY 03/15/21 06/15/24 release sertraline 50 mg tablet 50 mg PO DAILY 03/15/21 06/15/24 losartan 50 mg tablet 50 mg PO DAILY 03/21/22 06/15/24 blood sugar diagnostic (Gideonyle #10 ea 05/22/22 06/15/24 Lite Strips) omega 6-sjh-xig-fish oil 100 1 cap PO DAILY 05/22/22 06/15/24 mg-160 mg-1,000 mg capsule (Fish Oil) lancets 28 gauge (FreeStyle #100 ea 12/09/22 06/15/24 Lancets) cetirizine 10 mg tablet 10 mg PO DAILY 04/20/24 06/15/24 ascorbic acid (vitamin C) 500 mg mg PO 08/18/24 capsule dulaglutide 1.5 mg/0.5 mL mg subcut 08/18/24 subcutaneous pen injector (Trulicity) Previous Rx's ?Medication ?Instructions ?Recorded cefuroxime axetil 500 mg tablet 500 mg PO Q12H #10 tabs 08/18/24 aluminum hydrox-magnesium carb 254 10 ml PO QID PRN dyspepsia #355 mL 03/17/25 mg-237.5 mg/5 mL oral suspension (Gaviscon Extra Strength) sucralfate 1 gram tablet (Carafate) 1 g PO BID #60 tabs 03/28/25 Allergies Allergy/AdvReac Type Severity Reaction Status Date / Time ibuprofen [From Motrin] Allergy Mild Rash Verified 04/12/25 11:52 Review of Systems 2 Constitutional: Constitutional: Reports no additional constitutional complaints, Denies chills, Denies fever(s) and Denies night sweats Eyes: Eyes: Reports no additional eye complaints, Denies blurry vision, Denies change in vision, Denies diplopia, Denies eye discharge, Denies loss of vision and Denies eye pain ENT: Denies dizziness Cardiovascular: Cardiovascular: Reports no additional cardiovascular comp laints, Denies chest pain, Denies lightheadedness, Denies Loss of Consciousness and Denies dyspnea Respiratory: Respiratory: Reports no additional respiratory complaints and Denies dyspnea Gastrointestinal: Gastrointestinal: Reports no additional gastrointestinal complaints, Denies abdominal pain, Denies melena, Denies hematochezia, Denies change in bowel habits and Denies change in stool character Genitourinary: Genitourinary: Denies hematuria, Denies urinary frequency, Denies dysuria, Denies urinary incontinence, Denies urinary hesitancy and Denies urinary urgency Musculoskeletal: Musculoskeletal: Reports no additional musculoskeletal complaints, Denies numbness and Denies tingling Comments: left lower leg pain Neurologic: Denies dizziness, Denies loss of vision, Denies numbness and Denies tingling Psychiatric: Psychiatric: Reports no additional psychiatric complaints Endocrine: Endocrine: Reports no additional endocrine complaints Hematologic/Lymphatic: Hematologic/Lymphatic: Reports no additional hematologic/lymphatic complaints Allergic/Immunologic: Allergic/Immunologic: Reports no additional allergic/immunologic complaints [facility] Past Medical History Attestation statement: The following information was validated with the patient. Source: old records reviewed and nursing notes reviewed Medical History Carpal tunnel syndrome of right wrist History of carpal tunnel syndrome GERD (gastroesophageal reflux disease) Arthritis HTN (hypertension) History of palpitations Mitral valve regurgitation Hyperlipidemia Nephrolithiasis Wrist pain, right Diabetes Surgical History Hx of colonoscopy History of esophagogastroduodenoscopy (EGD) History of tubal ligation Social History Social History Alcohol intake: never Patient Tobacco Use Status: Never used Tobacco Smoked in Last 30 Days: No Use of substances other than those prescribed or required for medical reasons: No Advance Directives: No Advance Directives Information Provided: Yes Current occupational status: disabled 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 Physical Exam ED Vital Signs: Vital Signs - 24 hr 04/12/25 11:49 04/12/25 16:17 Temperature 97.9 F 98.0 F Pulse Rate 74 62 Respiratory Rate 16 18 Blood Pressure 144/67 H 136/80 Pulse Oximetry 97 97 Oxygen Delivery Method Room Air Room Air BMI result Body Mass Index 38.6 Const General: cooperative, no acute distress, alert and awake Nutritional Appearance: well nourished Orientation/consciousness: patient oriented x3 HENMT Head: Yes normal to inspection and Yes atraumatic Ears: hearing grossly normal bilaterally and external ears normal General nose exam: Normal external nose present, no nasal discharge noted and no epistaxis Face and sinus: Yes normal facial exam, No abrasion and No laceration Mouth: Normal oral and palatal mucosa present, no drooling and no muffled voice Eyes General: appearance normal, both eyes and all related structures Periorbital: periorbital findings normal Eyelids: Yes eyelids normal Conjunctivae: conjunctivae normal Pupils: Equal, round and reactive pupils present EOM: EOMs intact bilaterally Neck Neck: Yes normal visual inspection, Yes full ROM and Yes no lymphadenopathy Resp Effort & Inspection: normal respiratory effort and able to speak in complete sentences Neuro General: patient oriented x3, moves all extremities and CN's II-XI intact bilaterally Cranial nerves: Yes Equal, round and reactive pupils present Cognition (Neuro): normal cognition Extrem Other: pain with palpation with the anterior left lower leg General: Yes normal to inspection, Yes full ROM and Yes capillary refill normal Psych Appearance: grossly normal Mental Status: mental status grossly normal Affect: normal affect Attitude: cooperative Thought process: Normal thought process present Thought content: Normal thought content present Insight: Good insight present (Psych) Course Course Course Narrative: This is a rapid medical exam performed by Mili Nelson NP: Additional HPI, ROS, PE not included below will be deferred to primary provider. Patient is a 64-year-old female with history of GERD presenting with complaint of lower back pain and bilateral lower extremity paresthesias after a trip and fall earlier today, has baseline balance issues. +HS, no LOC. Not anticoagulated. Plan: CT head and neck, will defer imaging of lumbar spine to primary provider after better physical exam Medical Decision Making Medical Decision Making MDM Narrative: Patient is a 64 year old assigned female at with a history of GERD, chronic cough, and carpal tunnel presenting to the emergency department today with left lower leg pain after falling backwards. Patient's physical exam was as noted in the physical exam portion of this note. Patient's left tib fib x-ray showed no acute process. Patient's CT head and c-spine showed no acute process. Patient declined any back pain to me. I explained my physical exam findings as well as all test results to the patient. I answered all questions asked by the patient. I stressed the importance of the patient taking her medication as direc sammy (either prescribed or as the over the counter packaging recommends). I stressed the importance of the patient following up with her primary care provider. I stressed the importance of the patient returning to the emergency department immediately if her symptoms were to worsen or if she were to develop any dizziness, shortness of breath, difficulty breathing, chest pain, blurry vision, loss of vision, nausea, vomiting, abdominal pain, fever, chills, back pain, or any other complaints. Patient verbalized agreement and understanding with this treatment plan and discharge. Differential Diagnosis Differential Diagnoses: The differential diagnosis associated with the presentation includes Fall Left lower leg pain Admission/Observation Consideration of admission/observation: Escalation of care including admission/observation considered Patient would have been admitted to the hospital had her work up had any findings where hospital admission was appropriate and her clinical presentation warranted hospital admission. Independent Interpretation I performed an independent interpretation of an: Plain X-Ray and CT Scan Interpretation: My interpretation is in agreement with the radiologist's impression of these imaging studies. Report Number: [id number]: Total DLP = 0.00 mGy-cm EXAMINATION: CT HEAD WITHOUT CONTRAST CLINICAL INFORMATION: Fall with head strike. COMPARISON: 08/09/2015 TECHNIQUE: Contiguous axial imaging was performed from the skull base to vertex without intravenous administration of contrast. This CT examination was performed using dose optimization techniques as appropriate, variously including the following: *Automated exposure control *Adjustment of mA and/or kV according to patient size (this includes techniques or standardized protocols for targeted exams where dose is matched to indication/reason for exam; i.e. extremities or head) *Use of iterative reconstruction technique FINDINGS: There is no evidence of intracranial hemorrhage or extra-axial fluid collection. There is no mass effect, or edema. No CT evidence of acute territorial infarct. Ventricles, sulci, and cisterns are normal in size and configuration for patient age. No hydrocephalus. No midline shift. Negative hyperdense MCA sign. Negative insular ribbon sign. No significant white matter abnormality. Normal pituitary. Globes and orbital contents image normally. No extracranial soft tissue abnormalities. The paranasal sinuses, mastoid air cells, and tympanic cavities are normally aerated. No suspicious bony abnormalities. There are no acute fractures evident. CT/CT head/brain wo IV con IMPRESSION: No acute intracranial abnormality. No fractures seen. Electronically signed by: Will Oneal MD 04/12/2025 01:26 PM EDT Dictated By: Will Oneal MD Signed By: Electronically signed by Will Oneal MD 04/12/25 1326 Report Number: [id number]: Total DLP = 1132.00 mGy-cm EXAMINATION: CT CERVICAL SPINE WITHOUT CONTRAST CLINICAL INFORMATION: Fall, head strike, neck pain. COMPARISON: None available. TECHNIQUE: Spiral CT imaging of the cervical spine performed in axial plane without contrast. Multiplanar reformatted images were constructed from the axial data set. This CT examination was performed using dose optimization techniques as appropriate, variously including the following: *Automated exposure control *Adjustment of mA and/or kV according to patient size (this includes techniques or standardized protocols for targeted exams where dose is matched to indication/reason for exam; i.e. extremities or head) *Use of iterative reconstruction technique FINDINGS: CORONAL ALIGNMENT: -Normal. SAGITTAL ALIGNMENT: -Normal lordosis. No traumatic subluxation. C1-C2 AND CRANIOCERVICAL JUNCTION: -Intact and normally aligned. VERTEBRAL BODIES AND FACETS: -No fractures, compression deformities, or suspicious bone lesions. No evidence of traumatic subluxation. -Normal facet alignment bilaterally. DISCS: -Mild disc degeneration noted C3-C7. CENTRAL CANAL: -No evidence of high-grade central canal narrowing or large disc herniation allowing for modality limitations. PREVERTEBRAL AND PARAVERTEBRAL SOFT TISSUES: -No prevertebral or paravertebral soft tissue swelling or edema. -Normal-appearing thyroid gland by CT. -No masses or abnormal lymph nodes. LUNG APICES: -Clear bilaterally. CT/CT cervical spine wo IV con IMPRESSION: 1. No CT evidence of acute cervical spine fracture or injury. Electronically signed by: Will Oneal MD 04/12/2025 01:29 PM EDT RP Dictated By: Will Oneal MD Signed By: Electronically signed by Will Oneal MD 04/12/25 1329 EXAMINATION: XR TIBIA AND FIBULA, LEFT CLINICAL INFORMATION: Pain and injury. COMPARISON: None available. TECHNIQUE: AP and lateral views of the left tibia and fibula were obtained. FINDINGS: The bones and soft tissues are normal. No fracture. No osseous lesions. Mild degenerative changes at the tibiotalar joint. There are prominent plantar and dorsal calcaneal spurs incidentally noted. XR/XR tibia fibula LT 2V IMPRESSION: Normal left tibia and fibula. Electronically signed by: Will Oneal MD 04/12/2025 03:35 PM EDT RP Dictated By: Will Oneal MD Signed By: Electronically signed by Will Oneal MD 04/12/25 1535 Radiology Impression Discussion of test interpretation with radiology: I have reviewed the radiologist's reading. Discharge Plan Discharge Clinical Impression: Leg pain, Fall Patient Disposition: Home, Self-Care Instructions: Leg Pain (ED) Additional Instructions: Your work up today was reassuring. Your CT head and c-spine were negative. Your left lower leg x-ray was negative. Follow up with your primary care provider. Return to the emergency department immediately if your symptoms worsen or if you develop any dizziness, shortness of breath, difficulty breathing, chest pain, blurry vision, loss of vision, nausea, vomiting, abdominal pain, fever, chills, back pain, or any other complaints. Hurtado trabajo de hoy fue tranquilizador. La tomograf?a de la skylar y la columna vertebral fueron negativas. La radiograf?a de la pierna izquierda shaw sido negativa. Alexy un seguimiento con hurtado m?dico de cabecera. Vuelva al servicio de urgencias inmediatamente si ernestine s?ntomas empeoran o si presenta mareos, falta de aliento, dificultad para respirar, dolor tor?cico, visi?n borrosa, p?rdida de visi?n, n?useas, v?mitos, dolor abdominal, fiebre, escalofr?os, dolor de espalda o cualquier otra molestia. Please see the information below about our Patient Portal. If you are not yet enrolled in the [facility] Patient Portal, you will receive an enrollment email invitation following your visit to any [facility] care setting. You may also self-enroll in the Patient Portal by visiting our website: [email or web address] The following information is required to access the Patient Portal: - Your [facility] Medical Record Number - Your personal home email address (must match what is in your electronic medical record, Registration staff can assist with this) - Name - Date of Capabilities of the Patient Portal: - Message some providers - View upcoming appointments - Access your health summary, medical history, and visit history - View current conditions and allergies - View procedure and lab results - View your medications, including guidelines, side effects, and precautions - Complete pre-appointment questionnaires requested by your provider - Ready summary reports of your office visits and procedures To access the Patient Portal Mobile Delicia, follow these directions: - Search Phoneplus in the Delicia Store or buySAFE Store - Download the Delicia - Search for [facility] - Enter your login/password Portal del paciente Si usted no esta inscrito en el portal de pacientes de [facility], recibira jefferson invitacion de inscripcion despues de hurtado visita al [facility] o al [facility] via correo electronico. Tambien puede inscribirse voluntariamente en el portal de pacientes visitando nuestra pagina web: [email or web address] La siguiente informacion sera requerida para acceder al portal: - Hurtado suleman de historia medica de [facility] - Hurtado direccion de correo electronico personal - Nombre - Fecha de nacimiento Capacidades: Las siguientes capacidades estan disponibles en el portal de pacientes: - Enviar mensajes a algunos doctores - Verificar proximas citas - Acceso a hurtado historial de zaki, registro medico e historial de visitas - Quinn las condiciones actuales y alergias quinn procedimientos y resultados del laboratorio - Quinn ernestine medicamentos, incluyendo las pautas - Efectos secundarios y precauciones - Completar o llenar formularios / cuestionarios de - Citas solicitadas por hurtado doctor - Leer los resumenes de reportes medicos de ernestine visitas y procedimientos Leti acceder a la aplicacion movil: - Glynn Phoneplus en la Delicia Store o buySAFE Store - Descargue la aplicacion - [facility] - Ingrese hurtado nombre de usuario / Contrasena Prescriptions: No Action cefuroxime axetil 500 mg tablet 500 mg PO Q12H Qty: 10 0RF Gaviscon Extra Strength 254-237.5 mg/5 mL suspension 10 ml PO QID PRN (Reason: dyspepsia) Qty: 355 0RF cetirizine 10 mg Tablet 10 mg PO DAILY sucralfate [Carafate] 1 gram tablet 1 g PO BID Qty: 60 0RF Centrum Women 18-400 mg-mcg tablet 1 tab PO DAILY cholecalciferol (vitamin D3) 50 mcg (2,000 unit) tablet 50 mcg PO DAILY sertraline 50 mg tablet 50 mg PO DAILY aspirin 81 mg tablet,delayed release (DR/EC) 81 mg PO DAILY omeprazole 20 mg capsule,delayed release(DR/EC) 20 mg PO DAILY atorvastatin 40 mg tablet 40 mg PO BEDTIME docusate sodium 100 mg capsule 100 mg PO DAILY (DME) lancets [FreeStyle Lancets] 28 gauge misc See Rx Instructions .ROUTE BID Qty: 100 Rx Instructions: As directed losartan 50 mg tablet 50 mg PO DAILY (DME) FreeStyle Lite Strips Strip See Rx Instructions Not Applicable BID Qty: 10 Rx Instructions: As directed Fish Oil 100-160-1,000 mg capsule 1 cap PO DAILY Trulicity 1.5 mg/0.5 mL pen injector subcut ascorbic acid (vitamin C) 500 mg capsule PO Referrals: Lorene Lugo DO [Primary Care Provider] - Interventions: ED Discharge Assessment Last Done: 04/12/25 16:17 Discharge Date/Time: 04/12/25 16:30 Print Language: Kiswahili
--- OUTSIDE RECORDS SUMMARY | 2025-04-12 14:11 | XMS_ITS | Encounter Summary ---
Author Organization [employer] Address [address] [facility] [address] [place] [address] Care Team Providers Care Save All Operator Name Role Phone Lorene Lugo DO Primary Care Provider [phone] Puia, Keiko PharmD Unavailable [phone] Reason for Visit * Reason Comments Med Refill Encounter Details Date Type Department Care Team ([facility] st Contact Info) Description 02/09/2025 Refill [facility] [address] [place] [address] Puia, Keiko, PharmD [address] [place], [place] [phone] Social History Tobacco Use Types Packs/Day Years [...] per last CDTM plan) waiting for pickle maker. This request for 2.5 mg was sent in error. No action required. documented in this encounter Plan of Treatment Not on file documented as of this encounter Goals Goal Patient Goal Type Associated Problems Recent Progress Patient-Stated? Author Blood Pressure < 140/90 Blood Pressure 120/74(2024 9:58 AM EDT) No Alo Freitas PharmD Record [...] documented as of this encounter Care Teams Save All Operator Relationship Specialty Start Date End Date Lorene Lugo DO [address] [place] [address] PCP - General Family Medicine 11/30/18 Keiko Bowman PharmD [address] [place] [address] Pharmacist Internal Medicine 06/19/23 04/09/25 documented as of this encounter
--- OUTSIDE RECORDS SUMMARY | 2025-04-12 14:11 | XMS_ITS | Encounter Summary ---
Author Organization [employer] Address [address] [facility] [address] [place] [address] Care Team Providers Care Junior Account Manager Name Role Phone Lorene Lugo DO Primary Care Provider [phone] Keiko Bowman PharmD Unavailable [phone] Reason for Visit * Reason Comments Med Refill Encounter Details Date Type Department Care Team (Late st Contact Info) Description 04/13/2024 Refill [facility] [address] [place], [place] [phone] Lorene Lugo DO [address] [place], [place] [phone] Social History Tobacco Use Types Packs/Day Years [...] as of this encounter Plan of Treatment Not on file documented as of this encounter Goals Goal Patient Goal Type Associated Problems Recent Progress Patient-Stated? Author Blood Pressure < 140/90 Blood Pressure 120/74(2024 9:58 AM EDT) No Dellogono Alo, PharmD Record [...] documented as of this encounter Care Teams Junior Account Manager Relationship Specialty Start Date End Date Lorene Lugo DO [address] [place] [address] PCP - General Family Medicine 11/30/18 PuiaKeiko, PharmD [address] [place] [address] Pharmacist Internal Medicine 06/19/23 04/09/25 documented as of this encounter
--- OUTSIDE RECORDS SUMMARY | 2025-04-12 14:11 | XMS_ITS | Encounter Summary ---
Author Organization [employer] Address [address] [facility] [address] [place] [address] Care Team Providers Care Marketing Assistant Name Role Phone Lorene Lugo DO Primary Care Provider [phone] Keiko Bowman PharmD Unavailable [phone] Reason for Visit * Reason Onset Date Comments Request For Order(s) 02/22/2024 Encounter Details Date Type Department Care Team (Late st Contact Info) Description 02/22/2024 Telephone [facility] [address] [place], [place] [phone] Lorene Lugo DO [address] [place], [place] [phone] Request For Order(s) Social History Tobacco Use [...] 3:57 PM EDT TC placed to pt [phone] in regards to below message. Pt reports she has already called [facility] to cancel the colonoscopy. Pt informed [...] not feeling well. Please contact pt at [phone] documented in this encounter Plan of Treatment Not on file documented as of this encounter Goals Goal Patient Goal Type Associated Problems Recent Progress Patient-Stated? Author Blood Pressure < 140/90 Blood Pressure 120/74(2024 9:58 AM EDT) No Dellogono, Alo, PharmD Record [...] as of this encounter Care Teams Marketing Assistant Relationship Specialty Start Date End Date Lorene Lugo DO [address] [place] [address] PCP - General Family Medicine 11/30/18 Keiko Bowman PharmD [address] [place] [address] Pharmacist Internal Medicine 06/19/23 04/09/25 documented as of this encounter
--- OUTSIDE RECORDS SUMMARY | 2025-04-12 14:11 | XMS_ITS | Encounter Summary ---
Author Organization [employer] Address [address] [facility] [address] [place] [address] Care Team Providers Care Mouse Breeder Name Role Phone Lorene Lugo DO Primary Care Provider [phone] Keiko Bowman PharmD Unavailable [phone] Reason for Visit * Reason Comments Med Refill Encounter Details Date Type Department Care Team ([facility] st Contact Info) Description 02/09/2025 Refill [facility] [address] [place], [place] [phone] Lorene Lugo DO [address] [place], [place] [phone] Healthcare maintenance Social History Tobacco Use Types [...] documented as of this encounter Care Teams Mouse Breeder Relationship Specialty Start Date End Date Lorene Lugo DO [address] [place] [address] PCP - General Family Medicine 11/30/18 Puia, Keiko, PharmD [address] [place] [address] Pharmacist Internal Medicine 06/19/23 04/09/25 documented as of this encounter
--- OUTSIDE RECORDS SUMMARY | 2025-04-12 14:12 | XMS_ITS | Encounter Summary ---
Author Organization [facility] Address [address] [place] [address] Care Team Providers Care Shactor Helper Name Role Phone Lorene Lugo DO Primary Care Provider [phone] Reason for Visit * Reason Comments Consult NPV right foot and a nkle pain * Consultation (Routine) - Authorized Specialty Diagnoses / Procedures Referred By Chantell finn Referred To Contact Podiatry / Orthopaedic Surgery Diagnoses Pain in right ankle and joints of right foot Other chronic pain Calcaneal spur, right foot Plantar fascial fibromatosis Lorene Lugo DO [address] [place], [place] Phone: tel: fax: Eleuterio Santiago DPM [address] [address] Phone: tel: fax: Referral ID Status Reason Start Date Expiration Date Visits Requested Visits Authorized [id number] Authorized Specialty Services Required 4 11/21/2025 1 1 Encounter Details Date Type Department Care Team ([facility] Contact Info) Description 04/12/2025 9:15 AM EDT Consult Orthopedic Surgery - [place] [address] [phone] Eleuterio Santiago DPM [address] [address] Pain in right ankle and joints of right foot (Primary Dx); Other chronic pain; Calcaneal spur, right foot; Plantar fascial fibromatosis; Neuritis; Diabetic mononeuropathy simplex (CMS/HCC V24, CMS/HCC V28) Social History Tobacco Use Types Packs/Day Years Used Date Smoking Tobacco: Never Assessed Comments Unknown Sex and Gender Information Value Date Recorded Sex Assigned at Not on file Legal Sex Female 10:48 PM EST Gender Identity Not on file Sexual Orientation Not on file documented as of this encounter Last Filed Vital Signs Vital Sign Reading Time Taken Comments Blood Pressure - - Pulse - - Temperature - - Respiratory Rate - - Oxygen Saturation - - Inhaled Oxygen Concentration - - Weight 87.1 kg (192 lb) 04/12/2025 9:29 AM EDT Height 152.4 cm (5') 04/12/2025 9:29 AM EDT Body Mass Index 37.5 04/12/2025 9:29 AM EDT documented in this encounter Ordered Prescriptions Prescription Sig Dispense Quantity Refills Last Filled Start Date End Date lidocaine (LIDODERM) 5 % patchIndications:N euritis Apply 1 patch topically 1 (one) time each day. Remove & discard patch within 12 hours or as directed by MD. 30 each 2 04/12/2025 documented in this encounter Progress Notes * Eleuterio Santiago DPM - 04/12/2025 9:15 AM EDT Last PCP visit:Referring MD: Lorene Lugo DO IDENTIFIER: Chapin is a 64 y.o. year old female who presents for consultation. CC: Foot pain HPI: Chapin is a 64 y.o. year old female presents complaining of chronic pain in her right ankle and footshe is throbbing achy pain is comes a 7-10 vision is good she has not that radiates to her feet sheis a type II diabetic endorses occasional numbness and tingling to her feet presents today with herhusband present reports that somebody for prolonged period time several months and affects the way she walks and her activities throughout the day ROS: GENERAL: Pt denies nausea, fever, vomiting, chills, or shortness of breath. Pt in NAD. CARDIOLOGY: pt denies chest pain, palpitations LUNGS: pt denies shortness of breath MUSCULOSKELETAL: See HPI, otherwise no joint pain or swelling, back pain, or muscle pain. SKIN: see HPI, otherwise no lesions, rash or itching NEURO: No persistent headache, weakness or numbness The remainder of the review of systems is noncontributory PAST MEDICAL HISTORY: There is no problem list on file for this patient. Type 2 diabetes vitamin D deficiency chronic gastroesophageal reflux disease history of nephrolithiasis anxiety fatty liver disease sleep breathing disorder SOCIAL HISTORY: Social History Tobacco Use Smoking status: Not on file Smokeless tobacco: Not on file Substance Use Topics Alcohol use: Not on file ACTIVE MEDICATIONS: No outpatient medications have been marked as taking for the 04/12/25 encounter (Consult) with Eleuterio Santiago DPM. ALLERGIES: Allergies Allergen Reactions Motrin [Ibuprofen] PHYSICAL EXAM: Visit Vitals Ht 1.524 m (60 ) Wt 87.1 kg (192 lb) BMI 37.50 kg/m?? BSA 1.83 m?? PODIATRIC EXAMINATION: GENERAL: Patient appears well nourished, with NAD. VASCULAR: Dorsalis pedis pulses are 2/4 bilaterally and Posterior tibial pulses are 2/4 bilaterally. Capillary filling time within normal limits the digits. No pallor on elevation or rubor on dependency. No varicosities. Denies rest pain or claudication pain. NEUROLOGICAL: Sharp/dull sensation , protective sensation 7/10 with Ipswitch touch test bilaterally, vibratory sensation intact to the tibial tuberosity. ORTHOPEDIC: Good muscle strength 5/5 of all flexors and extensors. Dorsi flexion of ankle ,10 degrees, plantar flexion WNL. No muscle atrophy. DERMATOLOGICAL:.No masses or skin lesions noted. Normal skin temperature, normal skin turgor. BIOMECHANICS: Ankle ROM WNL, STJ ROM pain patient with cervical interosseous ligament right with some crepitation impingement of the right ankle subtalar joint range of motion, MTJ ROM wnl, 1st MPJ ROM wnl. IMAGING: IMPRESSION: 1. Pain in right ankle and joints of right foot 2. Other chronic pain 3. Calcaneal spur, right foot 4. Plantar fascial fibromatosis 5. Neuritis 6. Diabetic mononeuropathy simplex ([facility] V24, [facility] V28) PLAN: Pt was seen and examined, history reviewed. Treatment options were discussed and reviewed including stretching exercises demonstrated for patient anti-inflammatory medications steroid injections orthotics and insoles Recommendations given for prefabricated insoles Referral offered physical therapy patient declined Prescription given for anti-inflammatory medication X-rays reviewed from September of last year Strongly recommend steroid injection patient declined Discussed with patient regarding proper glucose control, exercise, and diet. Explained to patient proper shoe gear, and importance of daily foot checks. I reviewed neuropathy and why it occurs in diabetics. I educated the patient on proper blood sugar control and the importance of an HgBA1c of less than 7.0%. I reviewed the signs and symptoms of neuropathy with the patient Pt to return for another evaluation in 1 months. Eleuterio Santiago DPM documented in this encounter Plan of Treatment Upcoming Encounters Date Type Department Care Team (Late st Contact Info) Description 05/24/2025 9:45 AM EDT Office Visit Orthopedic Surgery - [place] [address] [phone] Eleuterio Santiago DPM [address] [address] documented as of this encounter Visit Diagnoses Diagnosis Pain in right ankle and joints of right foot- Primary Other chronic pain Calcaneal spur, right foot Plantar fascial fibromatosis Neuritis Unspecified neuralgia, neuritis, and radiculitis Diabetic mononeuropathy simplex (CMS/HCC V24, CMS/HCC V28) Type II or unspecified type diabetes mellitus with neurological manifestations, not stated as uncontrolled documented in this encounter Orders Outpatient Referral Count Last Ordered Date Ordered Date AMB REFERRAL TO PODIATRY 1 04/12/2025 documented in this encounter Care Teams Shactor Helper Relationship Specialty Start Date End Date Lorene Lugo DO [address] [place] [address] PCP - General Family Medicine 11/21/24 documented as of this encounter
--- OUTSIDE RECORDS SUMMARY | 2025-04-12 14:12 | XMS_ITS | Encounter Summary ---
Author Organization [employer] Address [address] [facility] 7[address] [place] [address] Care Team Providers Care Rehabilitation Services Manager Name Role Phone Lorene Lugo DO Primary Care Provider [phone] Keiko Bowman PharmD Unavailable Reason for Visit * Reason Comments Med Refill Encounter Details Date Type Department Care Team (Late st Contact Info) Description 12/28/2024 Refill [facility] MEDICINE [address] [place], [place] [phone] Lorene Lugo DO [address] [place], [place] [phone] Social History Tobacco Use Types Packs/Day Years [...] Blood Pressure 120/74(2024 9:58 AM EDT) No DellogonoBillyis, PharmD Record your blood pressure [...] documented as of this encounter Care Teams Rehabilitation Services Manager Relationship Specialty Start Date End Date Lorene Lugo DO [address] [place] [address] PCP - General Family Medicine 11/30/18 Keiko Bowman, PharmD [address] [place] [address] Pharmacist Internal Medicine 06/19/23 04/09/25 documented as of this encounter
--- OUTSIDE RECORDS SUMMARY | 2025-04-12 14:12 | XMS_ITS | Encounter Summary ---
Author Organization [email or web address] Address [address] [facility] 7[address] [place] [address] Care Team Providers Care Valet Parking Attendant Name Role Phone Lorene Lugo DO Primary Care Provider [phone] Keiko Bowman PharmD Unavailable [phone] Encounter Details Date Type Department Care Team (Late st Contact Info) Description 12/27/2024 Orders Only [facility] [address] [place] [address] Provider, MD Belinda Social History Tobacco Use [...] Worsening(11/2022 9:44 AM EDT) No Keiko Bowman, PharmD Hemoglobin A1c < 7 Result Component 6.2( 10:19 AM EDT) No DellogBilly shresthais, PharmD Record your blood sugar as directed [...] documented as of this encounter Care Teams Valet Parking Attendant Relationship Specialty Start Date End Date Lorene Lugo DO [address] [place] [address] PCP - General Family Medicine 11/30/18 Keiko Bowman, EdsonD [address] [place] [address] Pharmacist Internal Medicine 06/19/23 04/09/25 documented as of this encounter
--- OUTSIDE RECORDS SUMMARY | 2025-04-12 14:12 | XMS_ITS | Encounter Summary ---
Author Organization [employer] Address [address] [facility] 7[address] [place] [address] Care Team Providers Care Lithographic Press Operator Name Role Phone Lorene Lugo DO Primary Care Provider + [phone] Encounter Details Date Type Department Care Team (Late st Contact Info) Description 04/12/2025 Orders Only [facility] External Provider, [facility] Social History Tobacco Use Types Packs/Day Years [...] Pressure 120/74(2024 9:58 AM EDT) No Alo Freitas, PharmD Record your blood pressure at least once per week Blood Pressure Worsening(11/2022 9:44 AM EDT) No Keiko Bowman PharmD Hemoglobin A1c < 7 Result Component 6.2( 10:19 AM EDT) No Alo Freitas PharmDillon Record your blood sugar as directed Result Component On track( 023 9:44 AM EDT) No Keiko Bowman PharmDillon documented as of this encounter Procedures Procedure Name Priority Date/Time Associated Diagnosis Comments CT CERVICAL SPINE WO CONTRAST Routine 04/12/2025 12:[address] HEAD WO CONTRAST Routine 04/12/2025 1 1:54 AM EDT documented in this encounter Results * CT Cervical Spine w/o Contrast (04/12/2025 12:54 PM EDT) Anatomical Region Laterality Modality Spine, C-spine Computed Tomogra phy 04/12/2025 12:5 4 PM EDT Narrative 04/12/2025 1:32 PM EDT ? [facility] ?[address] ?[place] [address] ? CT Scan Report ? Signed ? Patient: Chapin,Cheryl I ?MR#: [id number] ?? 96 ? : 1960 ?Acct:[id number] ? Age/Sex: 64 / F ?ADM Date: 05/14/25 ? Loc: HO.ED ? Attending Dr: ? Ordering Physician: Jenny Nelson NP ?? Date of Service: 04/12/25 ?? Procedure(s): CT cervical spine wo IV con ?? Accession Number(s): [id number] ? cc: Lorene Lugo DO; Jenny Nelson NP ? Report Number: ?? [id number]: Total DLP = 1132.00 mGy-cm ?? EXAMINATION: ?? CT CERVICAL SPINE WITHOUT CONTRAST ? CLINICAL INFORMATION: ?? Fall, head strike, neck pain. ? COMPARISON: ?? None available. ? TECHNIQUE: ?? Spiral CT imaging of the cervical spine performed in axial plane ?? without contrast. Multiplanar reformatted images were constructed from ?? the axial data set. ? This CT examination was performed using dose optimization techniques as ?? appropriate, variously including the following: ?? *Automated exposure control ?? *Adjustment of mA and/or kV according to patient size (this includes ?? techniques or standardized protocols for targeted exams where dose is ?? matched to indication/reason for exam; i.e. extremities or head) ?? *Use of iterative reconstruction technique ? FINDINGS: ?? CORONAL ALIGNMENT: ?? -Normal. ? SAGITTAL ALIGNMENT: ?? -Normal lordosis. No traumatic subluxation. ? C1-C2 AND CRANIOCERVICAL JUNCTION: ?? -Intact and normally aligned. ? VERTEBRAL BODIES AND FACETS: ?? -No fractures, compression deformities, or suspicious bone lesions. No ?? evidence of traumatic subluxation. ?? -Normal facet alignment bilaterally. ? DISCS: ?? -Mild disc degeneration noted C3-C7. ? CENTRAL CANAL: ?? -No evidence of high-grade central canal narrowing or large disc ?? herniation allowing for modality limitations. ? PREVERTEBRAL AND PARAVERTEBRAL SOFT TISSUES: ?? -No prevertebral or paravertebral soft tissue swelling or edema. ?? -Normal-appearing thyroid gland by CT. ?? - No masses or abnormal lymph nodes. ? LUNG APICES: ?? -Clear bilaterally. ? CT/CT cervical spine wo IV con ?? IMPRESSION: ?? 1. No CT evidence of acute cervical spine fracture or injury. ? Electronically signed by: ??Will Oneal MD ??04/12/2025 01:29 PM EDT RP ? Dictated By: ?Will Oneal MD ? Signed By: ?<Electronically signed by Will Oneal MD in OV> ?04/12/25 1329 ? DD/ 1254 ? TD/TT: 04/12/25 1313 ? Medical Case Manager: ? Procedure Note Donsj, Chante - 04/12/[address] [address] [address] Scan Report Signed Patient: Cheryl Samson IMR#: [id number] 96 : 9Acct:[id number] Age/Sex: 64 / FADM Date: 04/12/25 Loc: HO.ED Attending Dr: Ordering Physician: Jenny Nelson NP Date of Service: 04/12/25 Procedure(s): CT cervical spine wo IV con Accession Number(s): [id number] cc: Lorene Lugo DO; Jenny Nelson NP Report Number: [id number]: Total DLP = 1132.00 mGy-cm EXAMINATION: CT CERVICAL SPINE WITHOUT CONTRAST CLINICAL INFORMATION: Fall, head strike, neck pain. COMPARISON: None available. TECHNIQUE: Spiral CT imaging of the cervical spine performed in axial plane without contrast. Multiplanar reformatted images were constructed from the axial data set. This CT examination was performed using dose optimization techniques as appropriate, variously including the following: *Automated exposure control *Adjustment of mA and/or kV according to patient size (this includes techniques or standardized protocols for targeted exams where dose is matched to indication/reason for exam; i.e. extremities or head) *Use of iterative reconstruction technique FINDINGS: CORONAL ALIGNMENT: -Normal. SAGITTAL ALIGNMENT: -Normal lordosis. No traumatic subluxation. C1-C2 AND CRANIOCERVICAL JUNCTION: -Intact and normally aligned. VERTEBRAL BODIES AND FACETS: -No fractures, compression deformities, or suspicious bone lesions. No evidence of traumatic subluxation. -Normal facet alignment bilaterally. DISCS: -Mild disc degeneration noted C3-C7. CENTRAL CANAL: -No evidence of high-grade central canal narrowing or large disc herniation allowing for modality limitations. PREVERTEBRAL AND PARAVERTEBRAL SOFT TISSUES: -No prevertebral or paravertebral soft tissue swelling or edema. -Normal-appearing thyroid gland by CT. - No masses or abnormal lymph nodes. LUNG APICES: -Clear bilaterally. CT/CT cervical spine wo IV con IMPRESSION: 1. No CT evidence of acute cervical spine fracture or injury. Electronically signed by: Will Oneal MD 04/12/2025 01:29 PM EDT RP Dictated By: Will Oneal MD Signed By: <Electronically signed by Will Oneal MD in OV> 04/12/25 1329 DD/ 1254 TD/TT: 04/12/25 1313 Medical Case Manager: [facility] External Provider IMG CT PROCEDURES Final Result * CT Head w/o Contrast (04/12/2025 11:54 AM EDT) Anatomical Region Laterality Modality Head, Neck Computed Tomogra phy 04/12/2025 11:5 4 AM EDT Narrative 04/12/2025 1:29 PM EDT ? [facility] ?[address] ?[place] [address] ? CT Scan Report ? Signed ? Patient: Cheryl Samson I ?MR#: [id number] ?? 96 ? : 1960 ?Acct:[id number] ? Age/Sex: 64 / F ?ADM Date: 04/12/25 ? Loc: HO.ED ? Attending Dr: ? Ordering Physician: Jenny Nelson NP ?? Date of Service: 04/12/25 ?? Procedure(s): CT head/brain wo IV con ?? Accession Number(s): [id number] ? cc: Lorene Lugo DO; Jenny Nelson SENIOR RESEARCH ASSOCIATE ? Report Number: ?? [id number]: Total DLP = ?0.00 mGy-cm ?? EXAMINATION: ?? CT HEAD WITHOUT CONTRAST ? CLINICAL INFORMATION: ?? Fall with head strike. ? COMPARISON: ?? 08/09/2015 ? TECHNIQUE: ?? Contiguous axial imaging was performed from the skull base to vertex ?? without intravenous administration of contrast. ? This CT examination was performed using dose optimization techniques as ?? appropriate, variously including the following: ?? *Automated exposure control ?? *Adjustment of mA and/or kV according to patient size (this includes ?? techniques or standardized protocols for targeted exams where dose is ?? matched to indication/reason for exam; i.e. extremities or head) ?? *Use of iterative reconstruction technique ? FINDINGS: ?? There is no evidence of intracranial hemorrhage or extra-axial fluid ?? collection. ?? There is no mass effect, or edema. No CT evidence of acute territorial ?? infarct. ?? Ventricles, sulci, and cisterns are normal in size and configuration ?? for patient age. No hydrocephalus. No midline shift. ?? Negative hyperdense MCA sign. Negative insular ribbon sign. ? No significant white matter abnormality. Normal pituitary. ? Globes and orbital contents image normally. ?? No extracranial soft tissue abnormalities. ? The paranasal sinuses, mastoid air cells, and tympanic cavities are ?? normally aerated. ?? No suspicious bony abnormalities. There are no acute fractures evident. ? CT/CT head/brain wo IV con ?? IMPRESSION: ?? No acute intracranial abnormality. No fractures seen. ? Electronically signed by: ??Will Oneal MD ??04/12/2025 01:26 PM EDT RP ? Dictated By: ?Will Oneal MD ? Signed By: ?<Electronically signed by Will Oneal MD in OV> ?04/12/25 1326 ? DD/ 1154 ? TD/TT: 04/12/25 1313 ? Medical Case Manager: ? Procedure Note Chante Joe - 04/12/[address] [address] [address] Scan Report Signed Patient: Cheryl Samson [facility]#: [id number] 96 : 9Acct:[id number] Age/Sex: 64 / FADM Date: 04/12/25 Loc: HO.ED Attending Dr: Ordering Physician: Jenny Nelson NP Date of Service: 04/12/25 Procedure(s): CT head/brain wo IV con Accession Number(s): [id number] cc: Lorene Lugo DO; Jenny Nelson NP Report Number: [id number]: Total DLP = 0.00 mGy-cm EXAMINATION: CT HEAD WITHOUT CONTRAST CLINICAL INFORMATION: Fall with head strike. COMPARISON: 08/09/2015 TECHNIQUE: Contiguous axial imaging was performed from the skull base to vertex without intravenous administration of contrast. This CT examination was performed using dose optimization techniques as appropriate, variously including the following: *Automated exposure control *Adjustment of mA and/or kV according to patient size (this includes techniques or standardized protocols for targeted exams where dose is matched to indication/reason for exam; i.e. extremities or head) *Use of iterative reconstruction technique FINDINGS: There is no evidence of intracranial hemorrhage or extra-axial fluid collection. There is no mass effect, or edema. No CT evidence of acute territorial infarct. Ventricles, sulci, and cisterns are normal in size and configuration for patient age. No hydrocephalus. No midline shift. Negative hyperdense MCA sign. Negative insular ribbon sign. No significant white matter abnormality. Normal pituitary. Globes and orbital contents image normally. No extracranial soft tissue abnormalities. The paranasal sinuses, mastoid air cells, and tympanic cavities are normally aerated. No suspicious bony abnormalities. There are no acute fractures evident. CT/CT head/brain wo IV con IMPRESSION: No acute intracranial abnormality. No fractures seen. Electronically signed by: Will Oneal MD 04/12/2025 01:26 PM EDT Dictated By: Will Oneal MD Signed By: <Electronically signed by Will Oneal MD in OV> 04/12/25 1326 DD/ 1154 TD/TT: 04/12/25 1313 Medical Case Manager: [facility] External Provider IMG CT PROCEDURES Final Result documented in this encounter Visit Diagnoses Not on filedocumented in this encounter Additional Health Concerns Assessment Noted Time PHQ-9 Depression Total Score: 0 08/25/20 23 9:41 AM EDT documented as of this encounter Care Teams Lithographic Press Operator Relationship Specialty Start Date End Date Lorene Lugo DO [address] [place] [address] PCP - General Family Medicine 11/30/18 documented as of this encounter
--- OUTSIDE RECORDS SUMMARY | 2025-04-12 14:12 | XMS_ITS ---
Author Organization [facility] Address [address] [place] [address] Care Team Providers Care Automotive Fuel Injection Servicer Name Role Phone Brittney James, Anna Marie Primary Care Provider Lauro Lock Jr Unavailable REASON FOR VISIT POSITIVE COLOGUARD Encounters Encounter Location Date Provider Diagnosis [facility] [place] [address] [place], [place] [phone] 04/22/2024 Lauro Paredes Jr Encounter for screening colonoscopy Z12.11 and Colon polyps K63.5 Assessments Encounter Date Diagnosis (ICD Code) Assessment Notes Treatment Notes Treatment Clinical Notes Section Notes 04/22/2024 Encounter for screening colonoscopy (ICD-10 - Z12.11) 04/22/2024 Colon polyps (ICD-10 - K63.5) Plan Of Treatment No Information Progress Notes * ARMIN ALEXANDRA IDOB: [birth year] (64 yo F)Acc No.[id number]:04/22/2024 COLON WITH MAC Patient:?ARMIN ALEXANDRA Kahn Provider:?Lauro Paredes MD :1960???Age:63 Y???Sex:Female D ate:04/22/2024 Address:[address] [place] [address], [facility] Pcp:Anna Marie Lugo M.D. Subjective: * Chief Complaints: * ???1. POSITIVE COLOGUARD. * Medical History:? Objective: * Vitals:? Assessment: * Assessment: 1.?Encounter for screening c olonoscopy - Z12.11 (Primary)???2.?Colon polyps - K63.5??? Plan: * Treatment: * Procedure Codes:?16322 LESIO N REMOVAL COLONOSCOPY, 23437 COLONOSCOPY AND BIOPSY, Modifiers: 59 * * The named appointment provid er may or may not be the originator of this progress note, and it is not deemed complete until electronically signed by the appointment provider. Sign off status: Pending * Provider:?Lauro Paredes MD Date:?0 04/22/2024 Generated for Mariano knox/Radha/Annitting on:?04/12/2025 02:12 PM EDT
--- OUTSIDE RECORDS SUMMARY | 2025-04-12 14:12 | XMS_ITS | Encounter Summary ---
Author Organization [employer] Address [address] [place] [address] 7 [place] [address] Care Team Providers Care Machine Or Machinery Mechanic Name Role Phone Lorene Lugo DO Primary Care Provider Alo Freitas PharmD Unavailable Unavail able Keiko Bowman PharmD Unavailable [phone] Encounter Details Date Type Department Care Team (Late st Contact Info) Description 12/30/2022 Telephone [facility] MEDICINE [address] [place], [place] [phone] Lorene Lugo DO [address] [place], [place] [phone] Social History Tobacco Use Types Packs/Day Years [...] on file documented as of this encounter Visit Diagnoses Not on filedocumented in this encounter Care Teams Machine Or Machinery Mechanic Relationship Specialty Start Date End Date Lorene Lugo DO [address] [place] [address] PCP - General Family Medicine 11/30/18 Alo Freitas, PharmD [address] [place] [address] Pharmacist Internal Medicine 02/11/23 06/18/23 Keiko Bowman, PharmD [address] [place] [address] Pharmacist Internal Medicine 06/19/23 04/09/25 documented as of this encounter
--- OUTSIDE RECORDS SUMMARY | 2025-04-12 14:12 | XMS_ITS | Encounter Summary ---
Author Organization [employer] Address [address] [facility] [address] [place] [address] Care Team Providers Care Striker Off Name Role Phone Lorene Lugo DO Primary Care Provider [phone] Keiko Bowman PharmD Unavailable [phone] Reason for Visit * Reason Comments Med Refill Encounter Details Date Type Department Care Team (Late st Contact Info) Description 04/06/2025 Refill [facility] [address] [place], [place] [phone] Lorene Lugo DO [address] [place], [place] [phone] Social History Tobacco Use Types Packs/Day Years [...] documented as of this encounter Care Teams Striker Off Relationship Specialty Start Date End Date Lorene Lugo DO [address] [place] [address] PCP - General Family Medicine 11/30/18 Keiko Bowman, PharmD [address] [place] [address] Pharmacist Internal Medicine 06/19/23 04/09/25 documented as of this encounter
--- OUTSIDE RECORDS SUMMARY | 2025-04-12 14:12 | XMS_ITS | Encounter Summary ---
Author Organization [employer] Address [address] [facility] [address] [place] [address] Care Team Providers Care Electronic Game Developer Name Role Phone Lorene Lugo DO Primary Care Provider [phone] Encounter Details Date Type Department Care Team (Latest Contact Info) Description 04/10/2025 Travel Social History Tobacco Use Types Packs/Day Years [...] documented as of this encounter Care Teams Electronic Game Developer Relationship Specialty Start Date End Date Lorene Lugo DO [address] [place] [address] PCP - General Family Medicine 11/30/18 documented as of this encounter
--- OUTSIDE RECORDS SUMMARY | 2025-04-12 14:12 | XMS_ITS | Encounter Summary ---
Author Organization [employer] Address [address] [facility] [address] [place] [address] Care Team Providers Care [employer] Senior Sergeant Name Role Phone Lorene Lugo DO Primary Care Provider Dellogono, Alo PharmD Unavailable Unavail able Puia, Keiko PharmD Unavailable [phone] Encounter Details Date Type Department Care Team (Late st Contact Info) Description 01/06/2023 Orders Only [facility] [address] [place] [address] Lorene Hollingsworth LPN Social History Tobacco Use [...] on file documented as of this encounter Procedures Procedure [...] 6:40 PM EDT Comment:UACC Narrative [facility] - 08/27/2023 11:24 AM EDT Urine Culture Report Result Urine Culture 10,000 to 50,000 cfu/ml Urine Culture Mixed bacterial meenu characteristic of Urine Culture urogenital contamination. Specimen Source: Urine clean catch Lorene Lugo DO LAB MICROBIOLOGY - GENERAL O RDERABLES Final Result Performing Organization Address [facility] Co de Phone Number [facility] [address] [place] [address] [phone] * (ABNORMAL) [employer] Covid-19 Ag (07/07/2023 1:04 PM EDT) [employer] Covid-19 Ag Positive (A) Negative [facility] Comment:Result reported to Raul [facility].All test results must be correlated with clinical findings.This test has been authorized by the FDA under an EmergencyUse Authorization(EUA)for use by authorized laboratories.Testing performed on the [employer] Covid-19 Ag Card which eva lateral flow immunoassay. The test does not differentiatebetween the SARS-CoV and SARS-COV-2. 07/07/2023 1:04 PM EDT 07/07/2023 1:34 PM EDT [facility] Exter nal Provider LAB BODY FLUIDS AND STOOLS ORDERABLES Final Result Performing Organization Address [facility] de Phone Number [facility] [address] [place] [address] [phone] documented in this encounter Visit Diagnoses Not on filedocumented in this encounter Care Teams [employer] Senior Sergeant Relationship Specialty Start Date End Date Lorene Lugo DO [address] [place] [phone] PCP - General Family Medicine 11/30/18 Alo Freitas PharmD [address] [place] [address] Pharmacist Internal Medicine 02/11/23 06/18/23 Keiko Bowman, PharmD [address] [place] [address] Pharmacist Internal Medicine 06/19/23 04/09/25 documented as of this encounter
--- OUTSIDE RECORDS SUMMARY | 2025-04-12 14:12 | XMS_ITS ---
Author Organization [facility] Address [address] [place] [address] Care Team Providers Care Nuclear Reactor Technician Name Role Phone Anna Marie Lugo M.D. Primary Care Provider Lauro Lock Jr REASON FOR VISIT medication adjustments for colonoscopy Encounters Encounter Location Date Provider Diagnosis [facility] [address] [place] [address] 03/10/2024 Lauro Paredes Jr Plan Of Treatment No Information Progress Notes * ALEXANDRA FUNEZ IDOB: [birth year] (63 yo F)Acc No.[id number]:03/10/2024 Patient:?ALEXANDRA FUNEZ I :1960???Age:63 Y???Sex:Female Address:[address] [facility] [address] , [place] [address] * true * Date:? Generated for Mariano knox/Radha/eTransmitting on:?04/12/2025 02:11 PM EDT
--- OUTSIDE RECORDS SUMMARY | 2025-04-12 14:12 | XMS_ITS | Clinical Summary ---
Author Organization [email or web address] Address [address] [place] [address] [address] [place] [address] Care Team Providers Care Storage Wharfage Clerk Name Role Phone Lorene Lugo DO Primary Care Provider + [phone] Allergies Active Allergy Reactions Criticality Noted Date Comments Goyo Inhibitors Cough Ibuprofen Rash Medium Other reaction(s): rash Other Reaction(s): Unknown Medications glucose blood (FREESTYLE LITE) test stripIndications:T ype 2 diabetes mellitus with microalbuminuria, without long-term current use of insulin ([facility]) USE TO TEST BLOOD SUGAR TWICE DAILY 100 strip 11 024 Active acetaminophen (Tylenol 8 Hour) 650 MG ER tablet Take 1 tablet (650 mg) by mouth every 8 (eight) hours if needed for mild pain. Do not crush, chew, or split. 60 tablet 2 024 2024 Active polyethylene glycol, PEG, 3350 (Glycolax) 17 GM/SCOOP powderIndications: Constipation, unspecified constipation type DISSOLVE AND MIX 17 GM INTO WATER. DRINK ONCE DAILY NEEDED FOR CONSTIPATION 238 g 5 025 Active Alcohol Swabs (Alcohol Prep) 70 % pads USE TWICE DAILY 100 each 11 025 Active docusate sodium (Colace) 100 MG capsule TAKE 1 CAPSULE(100 MG) BY MOUTH TWICE DAILY 180 capsule 3 025 Active sertraline (Zoloft) 50 MG tablet Take 1 tablet (50 mg) by mouth Once per day. 90 tablet 3 025 Active gabapentin (Neurontin) 100 MG capsule Take 1 capsule (100 mg) by mouth at bedtime. 30 capsule 3 025 2025 Active cholecalciferol (Vitamin D-3) 50 MCG (1999) tablet TAKE 1 TABLET BY MOUTH EVERY DAY 90 tablet Active Multiple Vitamins-Minerals (Multi For Her 50+) tabletIndications: Healthcare maintenance TAKE 1 TABLET BY MOUTH EVERY MORNING 90 tablet 3 Active FreeStyle lancetsIndications :Type 2 diabetes mellitus with microalbuminuria, without long-term current use of insulin ([facility]) USE TO TEST BLOOD SUGAR TWICE DAILY 200 each 11 Active omeprazole (PriLOSEC) [address] capsuleIndications :Chronic gastroesophageal reflux disease TAKE 1 CAPSULE BY MOUTH TWICE DAILY BEFORE BREAKFAST AND DINNER 180 capsule Active famotidine (Pepcid) 20 MG tablet Take 1 tablet (20 mg) by mouth if needed at bedtime for heartburn. 30 tablet 025 2025 Active cetirizine (ZyrTEC) 10 MG tablet TAKE 1 TABLET BY MOUTH EVERY MORNING 90 tablet Active sucralfate (Carafate) 1 g tablet Take 1 tablet by mouth 2 times daily. Active aspirin (Aspirin Low Dose) 81 MG EC tabletIndications: Type 2 diabetes mellitus with microalbuminuria, without long-term current use of insulin ([facility]),Other hyperlipidemia Take 1 tablet (81 mg) by mouth in the morning. 90 tablet 3 025 Active atorvastatin (Lipitor) 80 MG tabletIndications: Type 2 diabetes mellitus with microalbuminuria, without long-term current use of insulin ([facility]),Other hyperlipidemia Take 1 tablet (80 mg) by mouth Once per day. 90 tablet 3 025 Active losartan (Cozaar) 50 MG tabletIndications: Type 2 diabetes mellitus with microalbuminuria, without long-term current use of insulin ([facility]),Essentia l hypertension Take 1 tablet (50 mg) by mouth Once daily. 90 tablet 3 025 Active Tirzepatide (Mounjaro) 5 MG/0.5ML solution auto-injectorIndic ations:Type 2 diabetes mellitus with microalbuminuria, without long-term current use of insulin ([facility]) Inject 5 mg under the skin 1 (one) time per week. 2 mL 025 Active ascorbid acid ER (Vitamin C) 1000 MG ER tablet 1 tab by mouth daily OTC 2024 Discontinued(T herapy completed) losartan (Cozaar) 50 MG tabletIndications: Essential hypertension,Type 2 diabetes mellitus with diabetic microalbuminuria, without long-term current use of insulin ([facility]) Take 1 tablet (50 mg) by mouth Once daily. 90 tablet 3 024 2024 Discontinued(R eorder (will not trigger notification to Pharmacy)) baclofen (Lioresal) 10 MG tablet Take 1 tablet (10 mg) by mouth if needed in the morning, at noon, and at bedtime for muscle spasms. 60 tablet 2 024 2024 Discontinued(M ed list cleanup (will not trigger notification to Pharmacy)) Aspirin Low Dose 81 MG EC tabletIndications: Type 2 diabetes mellitus with microalbuminuria, without long-term current use of insulin ([facility]) TAKE 1 TABLET BY MOUTH EVERY MORNING 90 tablet 3 025 2024 Discontinued(R eorder (will not trigger notification to Pharmacy)) Tirzepatide (Mounjaro) 5 MG/0.5ML solution auto-injector Inject 5 mg under the skin 1 (one) time per week. 2 mL 11 025 2024 Discontinued(R eorder (will not trigger notification to Pharmacy)) cetirizine (ZyrTEC) 10 MG tablet TAKE 1 TABLET BY MOUTH EVERY MORNING 90 tablet 025 2024 Discontinued atorvastatin (Lipitor) 80 MG tablet Take 1 tablet (80 mg) by mouth Once per day. 90 tablet 1 025 2024 Discontinued(R eorder (will not trigger notification to Pharmacy)) Active Problems Problem Noted Date Diagnosed Date [...] Encounters Date Type Department Care Team Description 04/12/2025 Orders Only [facility] External Provider, [facility] 04/10/2025 Travel 04/06/[address] [facility] [address] [place] [address] Lorene Lugo DO 04/05/2025 11:00 AM EDT Office Visit [facility] [address] [place] [address] Lorene Lugo DO Epigastric pain (Primary Dx); Fatigue, unspecified type; Type 2 diabetes mellitus with diabetic microalbuminuria, without long-term current use of insulin ([facility]) 04/03/[address] [facility] [address] [place] [address] Lorene Lugo, Chart Prep 03/30/[address] [facility] [address] [place] [address] Lorene Lugo DO 03/29/[address] [facility] [address] [place] [address] Lorene Lugo DO ER Follow-up 03/27/2025 Orders Only GENERIC EXTERNAL DATA DEPARTMENT Provider, Generic External Data 03/17/2025 Orders Only GENERIC EXTERNAL DATA DEPARTMENT Provider, Generic External Data 03/16/[address] [facility] [address] [place] [address] Lorene Lugo DO Nurse Triage 03/10/2025 Refill [facility] [address] [place] [address] Lorene Lugo DO Chronic gastroesophageal reflux disease 02/27/[address] [facility] [address] [place] [address] Lorene Lugo, Type 2 diabetes mellitus with microalbuminuria, without long-term current use of insulin ([facility]) 02/15/[address] [facility] [address] [place] [address] Lorene Lugo DO ER Follow-up 02/14/2025 Orders Only GENERIC EXTERNAL DATA DEPARTMENT Provider, Generic External Data 02/09/[address] [facility] [address] [place] [address] Keiko Bowman, PharmD 02/09/[address] [facility] [address] [place] [address] Lorene Lugo DO Healthcare maintenance 02/09/[address] [facility] [address] [place] [address] Lorene Lugo DO Healthcare maintenance 01/27/2025 9:00 AM EST Office Visit [facility] [address] [place] [address] Lorene Lugo, Type 2 diabetes mellitus with diabetic microalbuminuria, without long-term current use of insulin ([facility]) (Primary Dx); Essential hypertension; Other hyperlipidemia; Fatty liver; Anxiety; Mitral valve insufficiency, unspecified etiology; Chronic gastroesophageal reflux disease; Chronic constipation; Sleep-disordered breathing; History of nephrolithiasis; Left leg pain; Healthcare maintenance 01/27/2025 Travel 01/24/2025 Travel 01/13/[address] [address] Jayne Richardson MD from Last 3 Months Immunizations Immunization Administration Dates Next Due Hep B, adult [...] Sign Reading Time Taken Comments Blood Pressure 120/74 04/10/2025 9:58 AM EDT Pulse 82 04/05/2025 11:52 AM [...] 04/05/2025 11:52 AM EDT Plan of Treatment Health Maintenance Due Date Last Done Comments [...] 09/08/2023, Additional history exists Diabetes: Hemoglobin A1C 10/07/2025 025, 04/05/2025, 01/27/2025, Additional history exists Alcohol/Substance Use Screening 04/05/2026 04/05/2025 Tobacco Screening 04/05/2026 04/05/2025 Lipid Panel 04/06/2026 04/06/2025, 10/01, 11/02/2023, Additional history exists Colorectal Cancer Screening 03/04/2027 FIT DNA/Cologuard 03/04/2027 [...] 9:44 AM EDT) No Keiko Bowman PharmD Procedures Procedure Name Priority Date/Time Associated Diagnosis Comments CT CERVICAL SPINE WO CONTRAST Routine 04/12/2025 12:[address] HEAD WO CONTRAST Routine 04/12/2025 1 1:54 AM EDT BASIC METABOLIC PANEL Routine 04/06/2025 10:19 AM EDT Epigastric pain Fatigue, unspecified type Type 2 diabetes mellitus with diabetic microalbuminuria, without long-term current use of insulin ([facility]) HEMOGLOBIN A1C Routine 04/06/2025 10:19 AM EDT Epigastric pain Fatigue, unspecified type Type 2 diabetes mellitus with diabetic microalbuminuria, without long-term current use of insulin ([facility]) HEPATIC FUNCTION PANEL Routine 04/06/2025 10:19 AM EDT Epigastric pain Fatigue, unspecified type Type 2 diabetes mellitus with diabetic microalbuminuria, without long-term current use of insulin (CMS/HCC) VITAMIN D,25-OH,TOTAL,IA Routine 04/06/2025 10:19 AM EDT Epigastric pain Fatigue, unspecified type Type 2 diabetes mellitus with diabetic microalbuminuria, without long-term current use of insulin (CMS/HCC) TSH Routine 04/06/2025 10:19 AM EDT Epigastric pain Fatigue, unspecified type Type 2 diabetes mellitus with diabetic microalbuminuria, without long-term current use of insulin (CMS/HCC) LIPID PANEL, STANDARD Routine 04/06/2025 10:19 AM EDT Epigastric pain Fatigue, unspecified type Type 2 diabetes mellitus with diabetic microalbuminuria, without long-term current use of insulin (CMS/HCC) T4, FREE Routine 04/06/2025 10:19 AM EDT Epigastric pain Fatigue, unspecified type Type 2 diabetes mellitus with diabetic microalbuminuria, without long-term current use of insulin (CMS/HCC) IRON AND TOTAL IRON BINDING CAPACITY Routine 04/06/2025 10:19 AM EDT Epigastric pain Fatigue, unspecified type Type 2 diabetes mellitus with diabetic microalbuminuria, without long-term current use of insulin (CMS/HCC) FERRITIN Routine 04/06/2025 10:19 AM EDT Epigastric pain Fatigue, unspecified type Type 2 diabetes mellitus with diabetic microalbuminuria, without long-term current use of insulin (CMS/HCC) VITAMIN B12/FOLATE, SERUM PANEL Routine 04/06/2025 10:19 AM EDT Epigastric pain Fatigue, unspecified type Type 2 diabetes mellitus with diabetic microalbuminuria, without long-term current use of insulin (CMS/HCC) CBC WITH AUTO DIFFERENTIAL Routine 04/06/2025 10:19 AM EDT Epigastric pain Fatigue, unspecified type Type 2 diabetes mellitus with diabetic microalbuminuria, without long-term current use of insulin ([facility]) HELICOBACTER PYLORI, UREA BREATH TEST Routine 04/05/2025 1:15 PM EDT Epigastric pain POCT GLYCATED HEMOGLOBIN, TOTAL Routine 04/05/2025 11:55 AM EDT Type 2 diabetes mellitus with diabetic microalbuminuria, without long-term current use of insulin ([facility]) POCT GLUCOSE Routine 04/05/2025 11:54 AM EDT Type 2 diabetes mellitus with diabetic microalbuminuria, without long-term current use of insulin ([facility]) URINALYSIS, COMPLETE, WITH REFLEX TO CULTURE Routine [...] microalbuminuria, without long-term current use of insulin ([facility]/HCC) THINPREP PAP, HPV MRNA E6/E7 RFX HPV 16,18/45, CHLAMYDIA/N.GONORRHOE AE Routine 01/16/2023 10:19 AM EST Encounter for gynecological examination without abnormal finding HM COLONOSCOPY Routine 12/13/2014 from Last 3 Months or Most Recently Relevant to Health Maintenance Results * CT Cervical Spine w/o Contrast (04/12/2025 12:54 PM EDT) Anatomical Region Laterality Modality Spine, C-spine Computed Tomogra phy 04/12/2025 12:5 4 PM EDT Narrative 04/12/2025 1:32 PM EDT ? [facility] ?[address] ?[place], [place] [address] ? CT Scan Report ? Signed ? Patient: Chapin,Cheryl I ?MR#: [id number] ?? 96 ? : 1960 ?Acct:[id number] ? Age/Sex: 64 / F ?ADM Date: 04/12/25 ? Loc: HO.ED ? Attending Dr: ? Ordering Physician: Jenny Nelson NP ?? Date of Service: 04/12/25 ?? Procedure(s): CT cervical spine wo IV con ?? Accession Number(s): [id number] ? cc: Lorene Lugo DO; Jenny Nelson NP ? Report Number: ?? [id number]: Total DLP = 1132.00 mGy-cm ?? EXAMINATION: [...] DD/ 1254 ? TD/TT: 04/12/25 1313 ? Assistant Branch Manager: ? Procedure Note [place] - 04/12/[address] [place] [address] [address] Scan Report Signed Patient: Cheryl Samson IMR#: [id number] 96 : 9Acct:[id number] Age/Sex: 64 / FADM Date: 04/12/25 Loc: HO.ED Attending Dr: Ordering Physician: Jenny Nelson NP Date of Service: 04/12/25 Procedure(s): CT cervical spine wo IV con Accession Number(s): [id number] cc: Lorene Lugo DO; Jenny Nelson NP Report Number: [id number]: Total DLP = 1132.00 mGy-cm EXAMINATION: CT [...] Will Oneal MD 04/12/2025 01:29 PM EDT Dictated By: Will Oneal MD Signed By: <Electronically signed by Will Oneal MD in OV> 04/12/25 1329 DD/ 1254 TD/TT: 04/12/25 1313 Assistant Branch Manager: [facility] External Provider IMG CT PROCEDURES Final Result * CT Head w/o Contrast (04/12/2025 11:54 AM EDT) Anatomical Region Laterality Modality Head, Neck Computed Tomogra phy 04/12/2025 11:5 4 AM EDT Narrative 04/12/2025 1:29 PM EDT ? [facility] ?[address] ?[place] [address] ? CT Scan Report ? Signed ? Patient: Chapin,Cheryl I ?MR#: [id number] ?? 96 ? : 1960 ?Acct:[id number] ? Age/Sex: 64 / F ?ADM Date: 05/14/25 ? Loc: HO.ED ? Attending Dr: ? Ordering Physician: Jenny Nelson NP ?? Date of Service: 04/12/25 ?? Procedure(s): CT head/brain wo IV con ?? Accession Number(s): [id number] ? cc: Lorene Lugo DO; Jenny Nelson NP ? Report Number: ?? [id number]: Total DLP = ?0.00 mGy-cm ?? EXAMINATION: [...] DD/ 1154 ? TD/TT: 04/12/25 1313 ? Assistant Branch Manager: ? Procedure Note Donotuseinterpreter, Image - 04/12/[address] [address] [address] Scan Report Signed Patient: Cheryl Samson IMR#: [id number] 96 : 9Acct:[id number] Age/Sex: 64 / FADM Date: 04/12/25 Loc: HO.ED Attending Dr: Ordering Physician: Jenny Nelson NP Date of Service: 04/12/25 Procedure(s): CT head/brain wo IV con Accession Number(s): [id number] cc: Lorene Lugo DO; Jenny Nelson NP Report Number: [id number]: Total DLP = 0.00 mGy-cm EXAMINATION: CT [...] Will Oneal MD 04/12/2025 01:26 PM EDT RP Dictated By: Will Oneal MD Signed By: <Electronically signed by Will Oneal MD in OV> 04/12/25 1326 DD/ 1154 TD/TT: 04/12/25 1313 Assistant Branch Manager: [facility] External Provider IMG CT PROCEDURES Final Result * Vitamin D, 25-Hydroxy, Total, Immunoassay (04/06/2025 10:19 AM EDT) Vitamin D 25-OH Total 63.1 >30 ng/mL [facility] Comment: Health Based Reference Values*< 20 ??ng/mL ??Uebulrofn73-08 ng/mL ??Insufficient> 30 ??ng/mL ??Sufficient*Kyrie RUSSELL. N Engl J Med. 2007;357:266-280There is no well-established upper level of normal vitamin Dlevels. Some laboratories use 50 ng/mL as an upper limit ofnormal. However, toxicity is patient-dependent and may occurat any level. Careful correlation with the patient'spresentation is necessary and, if there is concern forvitamin D toxicity, treatment should be consideredirrespective of the serum level.Care must be taken in interpreting Vitamin D results fromdifferent laboratories and methodologies. ??Published datademonstrated that results from patients undergoinghemodialysis may show a negative bias when tested withvarious automated 25-OH vitamin D assays when compared toLC- MS/MS.When testing samples from patients whose predominant form ofVitamin D is Vitamin D2, such as patients receiving VitaminD2 supplementation, results that are subtherapeutic shouldbe confirmed with another method such as LC-MS/MS. Blood Venous blood specimen / Unknown 04/06/2025 10:19 AM EDT 04/06/2025 11:05 AM EDT Lorene Lugo DO LAB BLOOD ORDERABLES Final R esult [facility] [address] [place], [place] [phone] * (ABNORMAL) Vitamin B12 (Cobalamin) and Folate Panel, Serum (04/06/2025 10:19 AM EDT) Pathologist [facility] Vitamin B12 1,225(H) 200 - 900 pg/mL [facility] Comment:NORMAL 200-900 PG/ML INDETERMINATE 160-199 PG/ML DEFICIENT < 160 PG/ML Folate 14.4 > or = 4.0 ng/mL [facility] Comment:Reference Values:> o r = 4.0 ng/mL< 4.0 ng/mL suggests folate deficiency Methotrexate, aminopterin and folinic acid(leucovorin) are chemotherapeutic agents whose molecularstructures are similar to folate; therefore, the Architectfolate assay cannot be used for patients using these drugs. Blood 04/06/2025 10:1 9 AM EDT 04/06/2025 11:05 AM EDT Lorene Lugo DO LAB BLOOD ORDERABLES Final R esult [facility] [address] [place] [phone] * (ABNORMAL) CBC auto differential (04/06/2025 10:19 AM EDT) Only the most recent of4 resultswithin the time period is included. Pathologist [facility] White Blood Count 6.1 4.8 - 10.8 X10*3/uL [facility] Red Blood Count 4.29 4.20 - 5.50 X10*6/uL [facility] Hemoglobin 12.2 12.0 - 16.0 g/dl [facility] Hematocrit 36.5(L) 37.0 - 47.0 % [facility] Mean Corpuscular Volume 85.1 80.0 - 98.0 fL [facility] Mean Corpuscular Hemoglobin 28.4 27.0 - 33.0 pg [facility] Mean Corpuscular HGB Conc 33.4 31.0 - 35.0 g/dl [facility] Red Cell Distribution Width 13.5 11.0 - 16.0 % [facility] Platelet Count 198 160 - 400 X10*3/uL [facility] Mean Platelet Volume 10.5 9.4 - 12.3 fL [facility] Neutrophils Percent Auto 60.2 45 - 73 % [facility] Imm Gran Pct Auto 0.2 0.0 - 0.4 % [facility] Lymphocytes Percent Auto 28.3 20 - 40 % [facility] Monocytes Percent Auto 9.3 2 - 11 % [facility] Eosinophils Percent Auto 1.5 0 - 4 % [facility] Basophils Percent Auto 0.5 0 - 2 % [facility] NRBC Pct Auto 0.0 0.0 - 0.2 /100WBC [facility] Neutrophils Absolute Auto 3.7 2.0 - 8.3 x10*3/uL [facility] Imm Gran Abs Auto 0.01 0.00 - 0.03 X10*3/uL [facility] Lymphocytes Absolute Auto 1.7 1.2 - 4.9 X10*3/uL [facility] Monocytes Absolute Auto 0.6 0.1 - 1.2 X10*3/uL [facility] Eosinophils Absolute Auto 0.1 0.0 - 0.4 X10*3/uL [facility] Basophils Absolute Auto 0.0 0.0 - 0.2 X10*3/uL [facility] NRBC Abs Auto 0.000 0.0 - 0.012 X10*3/uL [facility] Blood Venous blood specimen / Unknown 04/06/2025 10:19 AM EDT 04/06/2025 11:05 AM EDT us Lorene Lugo DO LAB BLOOD ORDERABLES Final R esult [facility] [address] [place] [phone] * Iron And Total Iron Binding Capacity (04/06/2025 10:19 AM EDT) Iron 53 30 - 160 mcg/dL [facility] Total Iron Binding Capacity 244 228 - 428 mcg/dL [facility] Percent Iron Saturation 22 15 - 50 % [facility] Unsaturated Iron Binding 191 ug/dL [facility] Blood Venous blood specimen / Unknown 04/06/2025 10:19 AM EDT 04/06/2025 11:05 AM EDT us Lorene Lugo DO LAB BLOOD ORDERABLES Final R esult Performing Organization Address City/[facility]/ZIP Co de Phone Number [facility] [address] [place] [phone] * TSH (04/06/2025 10:19 AM EDT) Thyroid Stimulating Hormone 0.77 0.32 - 4.0 uIU/mL [facility] Comment:TSH 3rd Generation ( [facility]) Blood Venous blood specimen / Unknown 04/06/2025 10:19 AM EDT 04/06/2025 11:05 AM EDT Lorene Lugo DO LAB BLOOD ORDERABLES Final R esult Performing Organization Address [facility] Co de Phone Number [facility] [address] [place] [phone] * T4, Free (04/06/2025 10:19 AM EDT) Free T4 (Free Thyroxine) 1.06 0.71 - 1.85 ng/dL [facility] Blood Venous blood specimen / Unknown 04/06/2025 10:19 AM EDT 04/06/2025 11:05 AM EDT Lorene Lugo DO LAB BLOOD ORDERABLES Final R esult Performing Organization Address [facility]/ZIP Co de Phone Number [facility] [address] [place] [phone] * (ABNORMAL) Hemoglobin A1c (04/06/2025 10:19 AM EDT) Hemoglobin A1c 6.2(H) <6.0 % [facility] Comment:Hemoglobin A1C Refer ence Range Adults: 4.8 - 6.0 % Non diabetic: < 6.0 % Goal: < 7.0 %Additional Action Suggested: > 8.0 %Note: Hemoglobin A1c results are invalid for patients with abnormal amounts of HbF. Blood transfusions may impact the HbA1c concentration in the patient sample. Estimated Average Glucose 131 mg/dL [facility] Comment:eAG = Estimated ave rage glucose which is %A1C expressed asaverage glucose, using the formula of the D9V-GvruddlUwecooa Glucose study (ADAG), Diabetes Care, Vol.31,#8,Jun. 2007 Blood Venous blood specimen / Unknown 04/06/2025 10:19 AM EDT 04/06/2025 11:05 AM EDT us Lorene Lugo DO LAB BLOOD ORDERABLES Final R esult Performing Organization Address City/[facility]/ZIP Co de Phone Number [facility] [address] [place] [phone] * Ferritin (04/06/2025 10:19 AM EDT) Ferritin 88 10 - 250 ng/mL [facility] Blood Venous blood specimen / Unknown 04/06/2025 10:19 AM EDT 04/06/2025 11:05 AM EDT [facility] Final R esult Performing Organization Address City/[facility]/ZIP Co de Phone Number [facility] [address] [place] [phone] * Hepatic Function Panel (04/06/2025 10:19 AM EDT) Bilirubin, Total 0.4 0.0 - 1.0 mg/dL [facility] Bilirubin, Direct 0.2 0.0 - 0.5 mg/dL [facility] Aspartate Amino Transferase 26 5 - 31 U/L [facility] Alanine Aminotransferase 24 0 - 31 U/L [facility] Total Protein 6.9 6.5 - 8.0 g/dL [facility] Albumin Level 3.8 3.5 - 5.0 g/dL [facility] Alkaline Phosphatase 70 39 - 117 U/L [facility] Blood Venous blood specimen / Unknown 04/06/2025 10:19 AM EDT 04/06/2025 11:05 AM EDT us Lorene Lugo DO LAB BLOOD ORDERABLES Final R esult [facility] [address] [place] [phone] * (ABNORMAL) Lipid Panel, Standard (04/06/2025 10:19 AM EDT) Triglycerides 74 <150 mg/dL [facility] Comment:Desirable Triglyceri de: less than 150 mg/dLBorderline High Triglyceride 150-199 mg/dLHigh Triglyceride: 200-499 mg/dLVery High Triglyceride: greater than or equal to 5OO mg/dL Cholesterol 115 <200 mg/dL [facility] Comment:Desirable Cholestero l: less than 200 mg/dLBorderline High Cholesterol: 200-239 mg/dLHigh Cholesterol: greater than 239 mg/dL LDL Cholesterol Calculated 61 <100 mg/dL [facility] [facility] Comment:Desirable LDL: less than 100 mg/dLNear Optimal/Above Optimal LDL: 110- 129 mg/dLBorderline High LDL: 130-159 mg/dLHigh LDL: 160-189 mg/dLVery High LDL: greater than or equal to 190 mg/dL HDL Cholesterol 40(L) >40 mg/dL [facility] Comment:Desirable HDL: great er than 40 mg/dL Note: This HDL assay may give artificially low results in patients with liver disease. Blood Venous blood specimen / Unknown 04/06/2025 10:19 AM EDT 04/06/2025 11:05 AM EDT Lorene Brittney DO LAB BLOOD ORDERABLES Final R esult Performing Organization Address [facility] Co de Phone Number [facility] [address] [place] [address] [phone] * (ABNORMAL) Basic Metabolic Panel (04/06/2025 10:19 AM EDT) Sodium 143 135 - 145 mmol/L [facility] Potassium 4.2 3.3 - 5.1 mmol/L [facility] Chloride 108 96 - 108 mmol/L [facility] Carbon Dioxide 28 22 - 29 mmol/L [facility] Anion Gap 11(L) 12 - 20 [facility] Urea Nitrogen (BUN) 12 9 - 16 mg/dL [facility] Creatinine, Serum 0.56 0.5 - 1.4 mg/dL [facility] Estimated Glomerular Filt Rate >60 [facility] Comment:Chronic Kidney Disea se: Estimated GFR < 60 mL/min/1.37n7Izmuwe Kidney Disease: Estimated GFR < 15 mL/min/1.73m2 Glucose 107 60 - 115 mg/dL [facility] Calcium 9.1 8.4 - 10.2 mg/dL [facility] Blood Venous blood specimen / Unknown 04/06/2025 10:19 AM EDT 04/06/2025 11:05 AM EDT Lorene Lugo DO LAB BLOOD ORDERABLES Final R esult Performing Organization Address City/[facility]/ZIP Co de Phone Number [facility] [address] [place] [phone] * Helicobacter pylori, Urea Breath Test (04/05/2025 1:15 PM EDT) H. pylori Breath Test Negative Negative [facility] Comment:Antimicrobials, prot on pump inhibitors and bismuthpreparations are known to suppress H. pylori. Ingestingthese medications within two weeks prior to performing thebreath test may produce negative test results. A positiveresult is still clinically valid. Breath Oral cavity structure / Unknown 04/05/2025 1:15 PM EDT 04/05/2025 6:03 PM EDT Lorene Brittney DO LAB BLOOD ORDERABLES Final R esult [facility] [address] [place] [phone] * (ABNORMAL) POCT HGB A1C (04/05/2025 11:55 AM EDT) Hemoglobin A1C 6.2(A) 4.0 - 6.0 % QC Media Lot # [id number] Lot# Expiration Date , Blood 04/05/2025 11:5 5 AM EDT Lorenecosta Gilesmalenaterri DO POINT OF CARE TEST ENTER/TANNER T ORDERABLES Final Result * POCT Glucose (04/05/2025 11:54 AM EDT) Only the most recent of2 resultswithin the time period is included. Pathologist [facility] Glucose Blood, POC 184 60 - 200 mg/dL QC Media Lot # [id number] Lot# Expiration Date Blood Capillary blood specimen / Unknown 04/05/2025 11:54 AM EDT Lorenecosta [employer] POINT OF CARE TEST ENTER/TANNER T ORDERABLES Final Result * (ABNORMAL) Urinalysis, Complete, with Reflex to Culture (03/27/2025 11:36 PM EDT) Only the most recent of2 resultswithin the time period is included. Color Urine Dark Yellow [facility] Appearance Urine Cloudy [facility] PH 6.0 5.0 - 9.0 [facility] Glucose Urine UA Negative Negative mg/dL [facility] Urine Blood Negative Negative [facility] Specific [place] - Urine 1.025 1.005 - 1.025 [facility] Urine Protein Trace Neg-Trace mg/dL [facility] Urine Ketones Trace Negative mg/dL [facility] Nitrite Urine Negative Negative [facility] Leukocyte Esterase Urine Moderate (2+)(A) Negative [facility] RBC Urine 0-2 0 - 2 /HPF [facility] Urine WBC 6-10 0 - 5 /HPF [facility] Urine Squamous Epithelial Cell 11-20 0 - 2 /HPF [facility] CALCIUM OXALATE CRYSTAL, UR Present [facility] Urine Bacteria Trace None Seen [facility] Hyaline Casts, Urine 0-2 0 - 2 /LPF [facility] 03/27/2025 11:3 6 PM EDT 03/27/2025 11:43 PM EDT Narrative [facility] - 03/27/2025 11:56 PM EDT [id number], Clean Catch us Generic External Data Provider LAB URINE ORDERAB LES Final Result [facility] [address] [place] [phone] * SARS-CoV-2 RNA, Influenza A/B, and RSV RNA, Ql NAAT (03/27/2025 11:26 PM EDT) Only the most recent of2 resultswithin the time period is included. Influenza A PCR NEGATIVE Negative [facility] Influenza B PCR NEGATIVE Negative [facility] Resp Syncy Virus RNA Qual PCR NEGATIVE Negative [facility] SARS COV2 PCR NEGATIVE Negative [facility] Comment:All test results mus t [...] use by authorized laboratories.Testing performed on the Bunks[employer]ed GeneXpert utilizingreal-time RT-PCR.All SARS CoV2 and positive influenza A/B results arereported to [facility]. 03/27/2025 11:2 6 PM EDT 03/27/2025 11:28 PM EDT us Generic External Data Provider LAB MICROBIOLOGY - GENERAL ORDERABLES Final Result [facility] [address] [place] [phone] * (ABNORMAL) Comprehensive Metabolic Panel (03/27/2025 11:26 PM EDT) Only the most recent of3 resultswithin the time period is included. Sodium 143 135 - 145 mmol/L [facility] Potassium 3.5 3.3 - 5.1 mmol/L [facility] Chloride 107 96 - 108 mmol/L [facility] Carbon Dioxide 25 22 - 29 mmol/L [facility] Anion Gap 15 12 - 20 [facility] Urea Nitrogen (BUN) 14 9 - 16 mg/dL [facility] Creatinine, Serum 0.62 0.5 - 1.4 mg/dL [facility] Creatinine Clr Calc Pharmacy 84.7 [facility] Comment:Provided height and weight: 152.4 cm,82.1 kg.eGFR (calculated from the MDRD study equation) and eCrCl(calculated from the Cockcroft-Gault equation) are based ondifferent parameters and may not yield comparable results.If eCrCl result is absurd, please check patient'sheight/weight. Estimated Glomerular Filt Rate >60 [facility] Comment:Chronic Kidney Disea se: Estimated GFR < 60 mL/min/1.72u8Coqbng Kidney Disease: Estimated GFR < 15 mL/min/1.73m2 Glucose 140(H) 60 - 115 mg/dL [facility] Calcium 8.6 8.4 - 10.2 mg/dL [facility] Bilirubin, Total 0.4 0.0 - 1.0 mg/dL [facility] Aspartate Amino Transferase 26 5 - 31 U/L [facility] Alanine Aminotransferase 23 0 - 31 U/L [facility] Total Protein 7.1 6.5 - 8.0 g/dL [facility] Albumin Level 4.0 3.5 - 5.0 g/dL [facility] Alkaline Phosphatase 83 39 - 117 U/L [facility] 03/27/2025 11:2 6 PM EDT 03/27/2025 11:29 PM EDT Generic External Data Provider LAB BLOOD ORDERAB LES Final Result Performing Organization Address [facility] Co de Phone Number [facility] [address] [place] [phone] * Culture, Urine, Routine (03/27/2025 12:00 AM EDT) Only the most recent of2 resultswithin the time period is included. Urine Urine specimen obtained by clean catch procedure / Unknown 03/27/2025 03/27/2025 Comment:[facility] Narrative [facility] - 03/29/2025 11:26 AM EDT Lactobacillus species Quant 50,000 to 100,000 cfu/mL Specimen Source: Urine clean catch Generic External Data Provider LAB MICROBIOLOGY - GENERAL ORDERABLES Final Result Performing Organization Address [facility] de Phone Number [facility] [address] [place] [phone] * CT Abdomen Pelvis w/ Contrast (03/17/2025 8:22 AM EDT) Anatomical Region Laterality Modality Body, Pelvis, Abdomen Computed T omography 03/17/2025 8:22 AM EDT Narrative 03/17/2025 8:59 AM EDT ? [facility] ?[address] ?[place] [address] ? CT Scan Report ? Signed ? Patient: Chapin,Cheryl I ?MR#: [id number] ?? 96 ? : 1960 ?Acct:[id number] ? Age/Sex: 64 / F ?ADM Date: 03/17/25 ? Loc: HO.ED ? Attending Dr: ? Ordering Physician: Ethan Lester MD ?? Date of Service: 03/17/25 ?? Procedure(s): CT abdomen pelvis w IV con ?? Accession Number(s): [id number] ? cc: Lorene Lugo DO; Ethan Lester MD ? Report Number: ?? [id number]: Total DLP = ??707.00 mGy-cm ?? EXAMINATION: [...] MD in OV> ?03/17/25 0856 ? DD/ 08 ? TD/TT: 03/17/25 0839 ? Assistant Branch Manager: ? Procedure Note Chante Joe - 03/17/[address] [address] [address] Scan Report Signed Patient: Ingris Samsonm [facility]#: [id number] 96 : 9Acct:[id number] Age/Sex: 64 / FADM Date: 03/17/25 Loc: HO.ED Attending Dr: Ordering Physician: Ethan Lester MD Date of Service: 03/17/25 Procedure(s): CT abdomen pelvis w IV con Accession Number(s): [id number] cc: Lorene Lugo DO; Ethan Lester MD Report Number: [id number]: Total DLP = 707.00 mGy-cm EXAMINATION: CT [...] OV> 03/17/25 0856 DD/ TD/TT: 03/17/25 0839 Assistant Branch Manager: [facility] External Provider IMG CT PROCEDURES Edited Result - Final * (ABNORMAL) Urinalysis Complete (02/14/2025 3:51 AM EDT) Color Urine Yellow [facility] Appearance Urine Cloudy [facility] PH 7.0 5.0 - 9.0 [facility] Glucose Urine UA Negative Negative mg/dL [facility] Urine Blood Negative Negative [facility] Specific [place] - Urine 1.010 1.005 - 1.025 [facility] Urine Protein Negative Neg-Trace mg/dL [facility] Urine Ketones Negative Negative mg/dL [facility] Nitrite Urine Negative Negative [facility] Leukocyte Esterase Urine Small (1+)(A) Negative [facility] RBC Urine 0-2 0 - 2 /HPF [facility] Urine WBC 0-5 0 - 5 /HPF [facility] Urine Squamous Epithelial Cell 0-2 0 - 2 /HPF [facility] Other Crystals Urine Present [facility] Urine Bacteria None Seen None Seen [facility] Hyaline Casts, Urine 0-2 0 - 2 /LPF [facility] 02/14/2025 3:51 AM EDT 02/14/2025 3:59 AM EDT Generic External Data Provider LAB URINE ORDERAB LES Final Result Performing Organization Address [facility] Co de Phone Number [facility] [address] [place] [phone] * Strep A Nucleic Acid (02/14/2025 3:44 AM EDT) IDNOW SERIAL# [id number] [facility] Strep A Nucleic Acid Negative Negative [facility] Comment:All test results mus t be [...] Result Performing Organization Address [facility] de Phone Number [facility] [address] [place] [phone] * (ABNORMAL) POCT glycosylated hemoglobin (Hgb A1c) (01/27/2025 9:01 AM EST) Hemoglobin A1C 6.6(A) 4.0 - 6.0 % QC Media Lot # [id number] Lot# Expiration Date [id number] Blood Capillary blood specimen / Unknown 01/27/2025 9:01 AM EST Lorene Lugo DO POINT OF CARE TEST ENTER/TANNER T ORDERABLES Final Result * BI Mammogram Screening Tomosynthesis Bilateral (09/15/2024 9:52 AM EDT) Anatomical Region Laterality Modality Breast Bilateral Mammography 09/15/2024 9:52 AM EDT Narrative 09/27/2024 12:30 PM EDT ? [facility] ? [address] ?[place] [address] ? Mammography Report ? Signed with Addenda ? Patient: Chapin,Cheryl I ?MR#: [id number] ?? 96 ? : 1960 ?Acct:[id number] ? Age/Sex: 63 / F ?ADM Date: 09/15/24 ? Loc: HO.MAMMO ? Attending Dr: Lorene Lugo DO ? Ordering Physician: Lorene Lugo DO ?Results: 1N ?? egative ? Date of Service: 09/15/24 ?Follow Up: 1 Year From Orig ?? inal Mammogram ? Procedure(s): MM tomosynthesis screening BI ?? Accession Number(s): [id number] ? cc: Lorene Lugo DO ?ADDENDUM ? [...] DD/ 0952 ? TD/TT: 09/15/24 1010 ? Assistant Branch Manager: ? Procedure Note Chante Joe - 09/30/2024 [facility] [address] [place] [address] Dr. Jones, REGULO [address] Mammography Report Signed with Willard Patient: Cheryl Samson IMR#: [id number] 96 : 9Acct:[id number] Age/Sex: 63 / FADM Date: 09/15/24 Loc: HO.MAMMO Attending Dr: Lorene Lugo DO Ordering Physician: Lorene Lugoults: 1N egative Date of Service: 09/15/24Follow Up: 1 Year From Orig ina Mammogram Procedure(s): MM tomosynthesis screening BI Accession Number(s): [id number] cc: Lorene Lugo ADDENDUM ADDENDUM #1 ADDENDUM: Due to a [...] Audrey Ambrosio DO 09/27/2024 12:27 PM EDT RP Dictated By: Audrey Ambrosio DO Signed By: <Electronically signed by Audrey Ambrosio DO in OV> 09/27/24 1227 DD/ 1 TD/TT: 09/15/24 1010 Assistant Branch Manager: Lorene Lugo DO IMG BI PROCEDURES Edited Res ult - Final * (ABNORMAL) Cologuard?? colon cancer screening (03/04/2024 3:00 PM EDT) Cologuard Result Positive( A) Negative 03/10/2024 10:28 AM EDT [facility] (CLIA #:[id number]) Comment: POSITIVE TEST RESULT. A positive Cologuard [...] (Dominique Otto al, N Engl J Med 2014;370(14):1931-6001.) Cologuard may produce a false negative or false positive result (no colorectal cancer or precancerous polyp present at colonoscopy follow up). A negative Cologuard test result does not guarantee the absence of CRC or advanced adenoma (pre-cancer). The current Cologuard screening interval is every 3 years. ([place] Cancer Society and U.S. Multi-Society Task Force). Cologuard performance data in a 10,000 patient pivotal study using colonoscopy as the reference method can be accessed at the following location: www.[employer].Skai/results. Additional description of the Cologuard test process, warnings and precautions can be found at www.colColoraderdamrd.com. Stool specimen (specimen) 03/04/2024 3:00 PM EDT 03/05/2024 11:39 AM EDT Lorene Lugo DO LAB MOLECULAR DIAGNOSTICS OR DERABLES Final Result Performing Organization Address City/[facility] Co de Phone Number [facility] (CLIA #:[id number]) [address] [place] [address], * Hepatitis C Antibody with Reflex to HCV RNA,PCR w/Reflex to Genotype, LiPA (01/23/2023 8:47 AM EST) Hepatitis C Antibody NON-REACT MARCE NON-REACT MARCE [employer] Options [place] [employer] Index <0.02 <1.00 [facility] [place] [employer] Comment: HCV antibody was non-reactive. There is no laboratory evidence of HCV infection. In most cases, no further action is required. However, if recent HCV exposure is suspected, a test for HCV RNA (test code 57331) is suggested. For additional information, please refer to http://education.[employer]/faq/AIT008 (This link is being provided for informational/ educational purposes only.) 01/23/2023 8:47 AM EST 01/23/2023 8:48 AM EST Narrative [facility] - 01/24/2023 6:35 PM EST FASTING:YES FASTING: YES Lorene Lugo DO LAB BLOOD ORDERABLES Final R esult Performing Organization Address City/[facility] Co de Phone Number [facility] [address] [facility], [place] [address] Funding Options [place] [employer] [facility] [address], ([address]) [place] [address] * Thinprep PAP, HPV mRNA E6/E7 RFX HPV 16,18/45, Chlamydia/N. Gonorrhoeae (01/16/2023 10:19 AM EST) Clinical Information: SREENIN PAP [facility] LMP: NONE GIVEN [employer] Prev. PAP: YES [employer] Prev. BX: NO Funding Options [place] [employer] SOURCE: Cervix Funding Options [place] [employer] Statement Of Adequacy: SATISFACTORY FOR EVALUATION Partially obscuring inflammation Kranem Interpretation/Re sult: Kranem Comment: Negative for intraepithelial lesion or malignancy. Atrophic pattern; predominantly parabasal cells Rapid Outsole Stitcher: [facility] Maimai Comment: KR, CT(ASCP) CT screening location: [address] ??[address] (Always Message) [facility] [employer] Comment: EXPLANATORY NOTE: The Pap is a [...] HPV nRNA E6/E7 Not Detected Not Detected Kranem Comment: Methodology: Literacy Coordinator-Mediated Amplification This assay detects E6/E7 viral messenger RNA (mRNA) from 14 high-risk HPV types (16,18,31,33,35,39,45,51,52,56,58,59,66,68). Cervical sources are required for HPV testing. If a vaginal source from a patient who has had a total hysterectomy with removal of cervix was submitted, please contact the testing laboratory for alternative testing options. For additional information, please refer to http://education.K[employer]/faq/LFB031s5 (This link if provided for information/ educational purposes only.) Chlamydia trachomatis RNA, TMA, Urogenital NOT DETECTED NOT DETECTED [employer] Neisseria gonorrhoeae RNA, TMA, Urogenital NOT DETECTED NOT DETECTED Kranem (Always Message) Que [facility] [place] [facility] Comment: The analytical performance characteristics of this assay, when used to test SurePath(TM) specimens have been determined by Funding Options. The modifications have not been cleared or approved by the FDA. This assay has been validated pursuant to the CLIA regulations and is used for clinical purposes. For additional information, please refer to https://education.K[employer]/faq/HJQ192 (This link is being provided for information/ educational purposes only.) Specimen from uterine cervix (specimen) 01/16/2023 10:19 AM EST 01/19/2023 12:52 AM EST Lorene Lugo DO LAB PATHOLOGY ORDERABLES Fin al Result [facility] [address] [facility], [facility], [place] [address] Funding Options [facility] [address], ([address]) [place] [address] * Colonoscopy (12/13/2014) Colonoscopy Normal Normal Comment:Hyperplastic polyps 10yr 12/13/2014 Lauro Paredes MD HEALTH MAINTENANCE Final Res ult from Last 3 Months or Most Recently Relevant to Health Maintenance Insurance [facility] OPTIONS (O D-SNP) S[place] [id number] Care Teams Storage Wharfage Clerk Relationship Specialty Start Date End Date Lorene Lugo DO [address] [place] [phone] PCP - General Family Medicine 11/30/18
--- OUTSIDE RECORDS SUMMARY | 2025-04-12 14:12 | XMS_ITS ---
Author Organization [facility] Address [address] [place] [phone] Care Team Providers Care Pathologist Name Role Phone Anna Marie Lugo M.D. Primary Care Provider Lauro Lock Jr REASON FOR VISIT pathology Encounters Encounter Location Date Provider Diagnosis [facility] [address] [place] [address] 05/05/2024 Lauro Paredes Jr Plan Of Treatment No Information Progress Notes * ALEXANDRA FUNEZ IDOB: [birth year] (63 yo F)Acc No.[id number]:05/05/2024 Patient:?ALEXANDRA FUNEZ I :1960???Age:63 Y???Sex:Female Address:[address], [place] [address] * true * Date:? Generated for Mariano knox/Radha/eTransmitting on:?04/12/2025 02:12 PM EDT
--- OUTSIDE RECORDS SUMMARY | 2025-04-12 14:12 | XMS_ITS | Patient Health Record ---
Author Organization [facility] Address [address] [place] [address] Care Team Providers Care Jumpbasting Canvas Baster Name Role Phone Anna Marie Lugo M.D. Primary Care Provider Lauro Lock Jr Unavailable [phone] 1 Allergies Allergen (clinical drug ingredient) Drug/Non Drug Allergy documented on EMR Reaction Allergy Type Onset Date Status Motrin Unknown Drug Allergy Active Results Component Value Reference Range Notes Glucose, Whole Blood Reviewed date:04/22/2024 04:22:48 PM Interpretation: Performing Lab:[facility], [address] [place] [phone] Notes/Report: Glucose, Whole Blood 84 60-115 mg/dL METER # : [id number] Pathology Reviewed date:05/05/2024 01:16:40 PM Interpretation: Performing Lab:[facility], [address] [place] [phone] Notes/Report: ----- Name: ChapinAlexandra Femi Age/Sex: 63/F : 1960 Unit#: [id number] Attend Dr: Lauro Paredes MD Re04/22/24 Status : [facility] Location: [facility] Disch: ----- SPEC : [id number] REC STATUS: ANAID BETANCOURT NUM: [id number] [place]: 04/22/[address] [facility] [address]: Lauro Paredes MD ENTERED: 04/22/24 39 [...] B. CEDS Copies To: Lauro Paredes MD [address] [place] [address] [address] [place], [place] [phone] Anna Marie Lugo DO [address] [place] [address] CONTINUED ON NEXT PAGE ----- Name: Alexandra Samson I Age/Sex: 63/F : 1960 Unit#: [id number] Attend Dr: Lauro Paredes MD Re04/22/24 Status : [facility] Location: [facility] Disch: ----- SPEC : [id number] RECD : 04/22/24 STATUS: ANAID BETANCOURT NUM: [id number] [place]: 04/22/[address] [facility] [address]: Lauro Paredes MD ENTERED: 04/22/24 39 [...] Problem Status W/U Status Risk Notes Problem [id number] Constipation, unspecified constipation type (K59.00) Active confirmed Encounters Encounter Location Date Provider Diagnosis [facility] Outpatient [address] [place], [place] [phone] 04/22/2024 Lauro Paredes Jr Encounter for screening colonoscopy Z12.11 and Colon polyps K63.5 [facility] [address] [facility] [facility] [address] [place] [address] 05/05/2024 Lauro Paredes Jr Assessments Encounter Date [...] Insured Coverage Start Date Coverage End Date [facility] [address] Attn Claims SETH White [id number] ALEXANDRA SAMSON Self - patient is the insured Medical (General) History Medical History History ICD Code Gastroesophageal reflux dise ase, EGD 07/07, no H. pylori or Davila's esophagus. Diabetes type 2 Nephrolithiasis Hyperlipidemia Mitral valve regurgitation Elevated body mass index Colonoscopy 12/14, hyperplastic polyps, t en-year followup Surgical History Surgery Date(Month/Year) tubal ligation
--- OUTSIDE RECORDS SUMMARY | 2025-04-12 14:12 | XMS_ITS | Clinical Summary ---
Author Organization [address] [facility] Address 175 [place] [address] Phone Care Team Providers Care Stair Builder Name Role Phone Chery Lugofer Raul LOUIS Primary Care Provider [phone] Allergies Active Allergy Reactions Criticality Noted Date Comments Ibuprofen 04/12/2025 Medications lidocaine (LIDODERM) 5 % patchIndication s:Neuritis Apply 1 patch topically 1 (one) time each day. Remove & discard patch within 12 hours or as directed by . 30 each 2 07/11/20 25 Active Encounters Date Type Department Care Team Description 04/12/2025 9:15 AM EDT Consult Orthopedic Surgery - [place] [address] [facility] [address] [place] [address] Eleuterio Santiago, CHINTAN Pain in right ankle and joints of right foot (Primary Dx); Other chronic pain; Calcaneal spur, right foot; Plantar fascial fibromatosis; Neuritis; Diabetic mononeuropathy simplex (CMS/HCC V24, CMS/HCC V28) from Last 3 Months Social History Tobacco Use Types Packs/Day Years Used Date Smoking Tobacco: Never Assessed Comments Unknown Sex and Gender Information Value Date Recorded Sex Assigned at Not on file Legal Sex Female 10:48 PM EST Gender Identity Not on file Sexual Orientation Not on file Last Filed Vital Signs Vital Sign Reading Time Taken Comments Blood Pressure - - Pulse - - Temperature - - Respiratory Rate - - Oxygen Saturation - - Inhaled Oxygen Concentration - - Weight 87.1 kg (192 lb) 04/12/2025 9:29 AM EDT Height 152.4 cm (5') 04/12/2025 9:29 AM EDT Body Mass Index 37.5 04/12/2025 9:29 AM EDT Plan of Treatment Upcoming Encounters Date Type Department Care Team (Late st Contact Info) Description 05/24/2025 9:45 AM EDT Office Visit Orthopedic Surgery - [place] [address] [phone] Eleuterio Santiago, DPM [address] [address] Health Maintenance Due Date Last Done Comments Breast Cancer Screening 1958 Diabetes: Annual Foot Exam 1968 Diabetes: Annual Retina Eye Exam 1968 Hepatitis A Vaccines (1 of 2 - Risk 2-dose series) 1977 COVID-19 Vaccine ( season) 2024 12/17/2021, 05/30/2021, 05/09/2021 Depression Screening 11/22/2024 08/25/2023 Falls Risk Assessment 11/22/2024 Hepatitis C Screening 11/22/2024 Medicare Annual Wellness Visit 11/22/2024 Osteoporosis Screening (Bone Density Screening) 11/22/2024 Social Influencers of Health Screening 11/22/2024 Diabetes: Annual Urine Albumin-Creatinine Ratio (uACR) 04/12/2025 Diabetes: Blood Sugar Control Test (HGBA1C) 10/07/2025 04/06/2025, 04/05/2025, 01/27/2025, Additional history exists Diabetes: Annual GFR (Glomerular Filtration Rate) 04/06/2026 04/06/2025, 03/27/2025, 03/17/2025, Additional history exists Hypertension/CHF/CAD Annual BMP Blood Test 04/06/2026 04/06/2025, 03/27/2025, 03/17/2025, Additional history exists Colorectal Cancer Screening: FIT-DNA (Cologuard) 03/04/2027 03/04/2024 Cholesterol Screening (Lipid Panel) 04/06/2030 04/06/2025, 04/22/1999 DTaP,Tdap,and Td Vaccines (4 - Td or Tdap) 08/02/2031 08/02/2021, 02/04/2011, 05/06/2002 Zoster Vaccines Completed 04/18/2019, 02/14/2019 Pneumococcal Vaccine: 50+ Years Completed 03/11/2023, 02/04/2011, 05/06/2002 RSV Immunization Adult Patients Completed 11/11/2023 Hepatitis B Vaccines Completed 02/17/2024, [...] to complete this topic RSV Immunization Patients Under 20 months Aged Out No longer eligible based on patient's age to complete this topic Varicella Vaccines Aged Out No longer eligible based on patient's age to complete this topic Procedures Procedure Name Priority Date/Time Associated Diagnosis Comments HEMOGLOBIN A1C Routine 04/22/1999 LIPID PANEL Routine 04/22/1999 from Last 3 Months or Most Recently Relevant to Health Maintenance Results * Hemoglobin A1c (04/22/1999) Hemoglobin A1C 6.2 <=6.5 % Blood Venous blood specimen / Unknown Historical Provider LAB BLOOD ORDERABLES Muriel l Result * (ABNORMAL) Lipid panel (04/22/1999) LDL/HDL Ratio 5(A) <=4 Triglycerides 380(A) <=200 mg/dL Cholesterol 203(A) <=200 mg/dL HDL 40 >=34 mg/dL LDL Cholesterol 87 0 - 130 mg/dL Blood Venous blood specimen / Unknown Historical Provider LAB BLOOD ORDERABLES Muriel l Result from Last 3 Months or Most Recently Relevant to Health Maintenance Insurance , [address] [id number] [employer] MEDICARE Member Subscriber Plan / Payer (Ef fective 2024-Present) Name:Cheryl Samson Relation to Subscriber:Self Name:Cheryl Samson Payer ID:[id number] Group ID:[id number] Type:Not on file Address: [address] [place] [address] MEDICAID - [place] Care Teams Stair Builder Relationship Specialty Start Date End Date Lorene Lugo DO [address] [place] [address] PCP - General Family Medicine 11/21/24
--- OUTSIDE RECORDS SUMMARY | 2025-04-12 14:12 | XMS_ITS | Encounter Summary ---
Author Organization [employer] Address [address] [facility] [address]t [place] [address] Care Team Providers Care Insight Leader Name Role Phone Lorene Lugo DO Primary Care Provider [phone] Keiko Bowman PharmD Unavailable [phone] Reason for Visit * Reason Comments Med Refill Encounter Details Date Type Department Care Team ([facility] st Contact Info) Description 09/24/2024 Refill [facility] CHC MED & PEDS [address] [place], [place] [phone] Lorene Lugo DO [address] [place], [place] [phone] Social History Tobacco Use Types Packs/Day Years [...] documented as of this encounter Care Teams Insight Leader Relationship Specialty Start Date End Date Lorene Lugo DO [address] [place] [address] PCP - General Family Medicine 11/30/18 PuiaKeiko, PharmD [address] [place] [address] Pharmacist Internal Medicine 06/19/23 04/09/25 documented as of this encounter
--- OUTSIDE RECORDS SUMMARY | 2025-04-12 14:12 | XMS_ITS | Encounter Summary ---
Author Organization [employer] Address 75 [facility] [address] [place] [address] Care Team Providers Care Program Administrator Name Role Phone Lorene Lugo DO Primary Care Provider [phone] Keiko Bowman PharmD Unavailable [phone] Reason for Visit * Reason Onset Date Comments Appointment Request 02/01/2024 Encounter Details Date Type Department Care Team ([facility] st Contact Info) Description 02/01/2024 Telephone [facility] [address] [place], [place] [phone] Lorene Lugo DO [address] [place], [place] [phone] Appointment Request Social History Tobacco Use Types [...] a DM follow up appt with PCP. Supervisor Smoke Control verify notes from last visit on 08/25/2023 pcp put appt should be around 12/25 but we can't schedule [place] appts. Supervisor Smoke Control advised someone will be calling to schedule [...] documented as of this encounter Care Teams Program Administrator Relationship Specialty Start Date End Date Lorene Lugo DO [address] [place] [address] PCP - General Family Medicine 11/30/18 Keiko Bowman PharmD [address] [place] [address] Pharmacist Internal Medicine 06/19/23 04/09/25 documented as of this encounter
--- OUTSIDE RECORDS SUMMARY | 2025-04-12 14:12 | XMS_ITS | Encounter Summary ---
Author Organization [employer] Address [address] [facility] [address] [place] [address] Care Team Providers Care Security Business Analyst Name Role Phone Lorene Lugo DO Primary Care Provider [phone] Keiko Bowman PharmD Unavailable [phone] Reason for Visit * Reason Comments Med Refill Encounter Details Date Type Department Care Team ([facility] st Contact Info) Description 08/14/2024 Refill [facility] CHC MED & PEDS [address] [place], [place] [phone] Ximena Florez FNP [address] [place], [place] [phone] Social History Tobacco Use Types Packs/Day Years [...] as of this encounter Care Teams Security Business Analyst Relationship Specialty Start Date End Date Lorene Lugo DO [address] [place] [address] PCP - General Family Medicine 11/30/18 PuiaKeiko, PharmD [address] [place] [address] Pharmacist Internal Medicine 06/19/23 04/09/25 documented as of this encounter
--- OUTSIDE RECORDS SUMMARY | 2025-04-12 14:12 | XMS_ITS | Encounter Summary ---
Author Organization [employer] Address 75 [facility] 7t [place] [address] Care Team Providers Care Senior Systems Analyst Name Role Phone Lorene Lugo DO Primary Care Provider [phone] Keiko Bowman PharmD Unavailable Reason for Visit * Reason Comments Med Refill Encounter Details Date Type Department Care Team ([facility] st Contact Info) Description 08/12/2024 Refill [facility] CHC MED & PEDS [address] [place], [place] [phone] Ximena Florez FNP [address] [place], [place] [phone] Social History Tobacco Use Types Packs/Day Years [...] as of this encounter Care Teams Senior Systems Analyst Relationship Specialty Start Date End Date Lorene Lugo DO [address] [place] [address] PCP - General Family Medicine 11/30/18 PuiaKeiko, PharmD [address] [place] [address] Pharmacist Internal Medicine 06/19/23 04/09/25 documented as of this encounter
--- OUTSIDE RECORDS SUMMARY | 2025-04-12 14:12 | XMS_ITS | Encounter Summary ---
Author Organization [employer] Address 75 [facility] 7t [place] [address] Care Team Providers Care Geothermal Production Manager Name Role Phone Lorene Lugo DO Primary Care Provider [phone] Keiko Bwoman PharmD Unavailable [phone] Reason for Visit * Reason Comments Med Refill Encounter Details Date Type Department Care Team ([facility] st Contact Info) Description 07/13/2024 Refill [facility] CHC MED & PEDS [address] [place], [place] [phone] Xmiena Florez FNP [address] [place], [place] [phone] Social History Tobacco Use Types Packs/Day Years [...] documented as of this encounter Care Teams Geothermal Production Manager Relationship Specialty Start Date End Date Lorene Lugo DO [address] [place] [address] PCP - General Family Medicine 11/30/18 PuiaKeiko, PharmD [address] [place] [address] Pharmacist Internal Medicine 06/19/23 04/09/25 documented as of this encounter
--- OUTSIDE RECORDS SUMMARY | 2025-04-12 14:12 | XMS_ITS | Encounter Summary ---
Author Organization [employer] Address 75 [facility] 7t [place] [address] Care Team Providers Care Hand Salter Name Role Phone Lorene Lugo DO Primary Care Provider [phone] Keiko Bowman PharmD Unavailable Reason for Visit * Reason Comments Med Refill Encounter Details Date Type Department Care Team (Late st Contact Info) Description 03/30/2025 Refill [facility] [address] [place], [place] [phone] Lorene Lugo DO [address] [place], [place] [phone] Social History Tobacco Use Types Packs/Day Years Used Date Smoking Tobacco: Never Passive Smoke Exposure: Never Smokeless Tobacco: Never Alcohol Use Standard Drinks/Week Comments Never 0 (1 standard drink = 0.6 oz pur e alcohol) Depression Answer Date Recorded Patient Health Questionnaire-9 Score 0 08/25/2023 Housing Stability Answer Date Recorded What is your housing situation today? I have particia iraheta 09/14/[address] you [...] documented as of this encounter Care Teams Hand Salter Relationship Specialty Start Date End Date Lorene Lugo DO [address] [place] [address] PCP - General Family Medicine 11/30/18 Keiko Bowman, PharmD [address] [place] [address] Pharmacist Internal Medicine 06/19/23 04/09/25 documented as of this encounter
[2025-04-12 16:17] VITALS: BP 136/80; PULSE 62; RESP 18; TEMP 36.7; O2SAT 97
== END 2025-04-12 16:30 | disposition home or self-care (01) ==
PROVIDERS: Emergency Provider Emergency Medicine; PCP Family Medicine
DX: M79.605 Pain in left leg (principal); R51.9 Headache, unspecified; M54.2 Cervicalgia; R20.0 Anesthesia of skin; Z79.899 Other long term (current) drug therapy
CPT/HCPCS: 70450; 72125; 73590; 99284

== ENCOUNTER → 2025-04-12 11:54 | Outpatient (BNV) | payer OTHER, SELFPAY | PROVIDERS: PCP Family Medicine; Visit Provider Radiology Diagnostic Radiology | DX: M54.2 Cervicalgia (principal); S09.90XA Unspecified injury of head, initial encounter; M79.605 Pain in left leg | CPT/HCPCS: 70450; 72125; 73590 ==

== ENCOUNTER → 2025-05-25 00:33 | Outpatient (BNV) | payer OTHER, SELFPAY | PROVIDERS: Emergency Provider Emergency Medicine; Visit Provider General Practice | DX: R07.9 Chest pain, unspecified (principal) | CPT/HCPCS: 71045 ==

== ENCOUNTER 2025-05-25 00:46 | Emergency (ER) | payer OTHER, SELFPAY ==
--- NOTE | 2025-05-25 | ECG_ITS ---
Test Reason : CP Blood Pressure : */* mmHG Vent. Rate : 92 BPM Atrial Rate : 92 BPM P-R Int : 164 ms QRS Dur : 80 ms QT Int : 350 ms P-R-T Axes : 33 25 34 degrees QTcB Int : 432 ms Normal sinus rhythm Normal ECG When compared with ECG of 28-Mar-2025 00:53, No significant change was found Referred By: Generic ED Physician Electronically Signed By: ROOSEVELT ZIEGLER
--- NOTE | ~2025-05-25 | XR_ITS ---
CLINICAL HISTORY: chest pain 1 view chest x-ray Comparison: None provided Findings: The lungs are clear. Heart size is normal. No acute fracture. IMPRESSION: 1. No acute findings. This document has been electronically signed by: Gigi Nielsen MD, PHD on 05/25/2025 02:06:14
[2025-05-25 01:08] VITALS: BP 142/82; PULSE 97; RESP 16; TEMP 36.9; O2SAT 96; BMI 5337.7
[2025-05-25 01:30] LABS: Hematocrit 35.4 % (37.0-47.0); Hemoglobin 11.6 g/dl (12.0-16.0); Mean Corpuscular HGB Conc 32.8 g/dl (31.0-35.0); Mean Corpuscular Hemoglobin 27.9 pg (27.0-33.0); Mean Corpuscular Volume 85.1 fL (80.0-98.0); Mean Platelet Volume 10.8 fL (9.4-12.3); Platelet Count 145 X10*3/uL (160-400); Red Blood Count 4.16 X10*6/uL (4.20-5.50); Red Cell Distribution Width 13.2 % (11.0-16.0); White Blood Count 6.8 X10*3/uL (4.8-10.8)
[2025-05-25 01:48] LABS: Alanine Aminotransferase 24 U/L (0-31); Albumin Level 3.9 g/dL (3.5-5.0); Alkaline Phosphatase 75 U/L (39-117); Anion Gap 14 (12-20); Aspartate Amino Transferase 27 U/L (5-31); Bilirubin Total 0.3 mg/dL (0.0-1.0); Blood Urea Nitrogen 16 mg/dL (9-16); Calcium 9.1 mg/dL (8.4-10.2); Carbon Dioxide 26 mmol/L (22-29); Chloride 106 mmol/L (96-108); Creatinine Clr Calc Pharmacy -20.6; Estimated Glomerular Filt Rate > 60; Glucose Random 157 mg/dL (60-115); Lipase 34 U/L (8-78); Magnesium 1.7 mg/dL (1.6-2.6); Potassium 3.6 mmol/L (3.3-5.1); Sodium 142 mmol/L (135-145); Total Protein 6.8 g/dL (6.5-8.0)
[2025-05-25 01:51] LABS: B Type Natriuretic Peptide 25 pg/mL (<100)
[2025-05-25 01:59] LABS: Troponin-I High Sensitivity < 2.7 ng/L (<3.5-17.0)
--- NOTE | 2025-05-25 02:04 | ED.CHESTPAIN ---
HPI - Chest Pain General Chief Complaint: Chest Pain Stated Complaint: n/v/d Time Seen by Provider: 05/25/25 01:27 Source: patient Mode of arrival: ambulatory Limitations: no limitations History of Present Illness ED Provider: Radha Robbins NP HPI narrative: Patient is a 64-year-old female with past medical history of hypertension, hyperlipidemia, diabetes, mitral valve regurgitation, arthritis, GERD who presents emergency department for evaluation of left anterior chest pain, nausea, feeling hot. Onset approximately 2 hours prior to arrival having self resolved about 20 minutes after arrival to emergency department. The time my evaluation she endorses no complaints at this time. She states that this has happened in the past and typically self resolves. She is not certain whether she pulled a muscle trying to get into your 's truck as it is quite high and she has use her arms to lift her into the truck. She has not recently been sick no URI symptoms or cough. She denied associated shortness of breath with these symptoms. No recent vomiting, heartburn. No abdominal pain diarrhea constipation. Denies any numbness or tingling to the extremities. Related Data Home Medications ?Medication ?Instructions ?Recorded ?Confirmed aspirin 81 mg tablet,delayed 81 mg PO DAILY 03/15/21 06/15/24 release atorvastatin 40 mg tablet 40 mg PO BEDTIME 03/15/21 06/15/24 cholecalciferol (vitamin D3) 50 50 mcg PO DAILY 03/15/21 06/15/24 mcg (2,000 unit) tablet docusate sodium 100 mg capsule 100 mg PO DAILY 03/15/21 06/15/24 multivitamin-ferrous 1 tab PO DAILY 03/15/21 06/15/24 fumarate-folic acid 18 mg-400 mcg tablet omeprazole 20 mg capsule,delayed 20 mg PO DAILY 03/15/21 06/15/24 release sertraline 50 mg tablet 50 mg PO DAILY 03/15/21 06/15/24 losartan 50 mg tablet 50 mg PO DAILY 03/21/22 06/15/24 blood sugar diagnostic (FreeStyle #10 ea 05/22/22 06/15/24 Lite Strips) omega 0-oze-byv-fish oil 100 1 cap PO DAILY 05/22/22 06/15/24 mg-160 mg-1,000 mg capsule (Fish Oil) lancets 28 gauge (FreeStyle #100 ea 12/09/22 06/15/24 Lancets) cetirizine 10 mg tablet 10 mg PO DAILY 04/20/24 06/15/24 ascorbic acid (vitamin C) 500 mg mg PO 08/18/24 capsule dulaglutide 1.5 mg/0.5 mL mg subcut 08/18/24 subcutaneous pen injector (Trulicity) Previous Rx's ?Medication ?Instructions ?Recorded cefuroxime axetil 500 mg tablet 500 mg PO Q12H #10 tabs 08/18/24 aluminum hydrox-magnesium carb 254 10 ml PO QID PRN dyspepsia #355 mL 03/17/25 mg-237.5 mg/5 mL oral suspension (Gaviscon Extra Strength) sucralfate 1 gram tablet (Carafate) 1 g PO BID #60 tabs 03/28/25 Allergies Allergy/AdvReac Type Severity Reaction Status Date / Time ibuprofen (From Motrin) Allergy Mild Rash Verified 05/25/25 01:12 Review of Systems Review of Systems: Yes all other systems are reviewed and are negative [facility] Past Medical History Attestation statement: The following information was validated with the patient. Source: old records reviewed Medical History Carpal tunnel syndrome of right wrist History of carpal tunnel syndrome GERD (gastroesophageal reflux disease) Arthritis HTN (hypertension) History of palpitations Mitral valve regurgitation Hyperlipidemia Nephrolithiasis Wrist pain, right Diabetes Surgical History Hx of colonoscopy History of esophagogastroduodenoscopy (EGD) History of tubal ligation Social History Social History Alcohol intake: never Patient Tobacco Use Status: Never used Tobacco Smoked in Last 30 Days: No Use of substances other than those prescribed or required for medical reasons: No Advance Directives: No Advance Directives Information Provided: Yes Current occupational status: disabled 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 No acute distress.?Normal affect. Eyes: Pupils equal, round and reactive to light.? ENT: Pharynx normal.?? Neck: Normal inspection.? Neck supple.??No JVD. CVS: Heart sounds normal. Normal heart rate and rhythm.? Pulses normal.?? Respiratory: No respiratory distress.? Lung sounds clear to auscultation bilaterally?? Abdomen: Soft and non-tender. Normoactive bowel sounds. No pulsatile mass.?? Skin: Skin warm and dry.? Normal skin color.? ?? Extremities: No lower extremity edema.? No calf ttp? Neuro: Moves all extremities spontaneously. Sensation intact bilaterally. CN II-XII intact. No focal neuro deficits. Ambulates with normal steady gait. Medical Decision Making Medical Decision Making MDM Narrative: Patient is a 64-year-old female with past medical history of hypertension, hyperlipidemia, diabetes, mitral valve regurgitation, arthritis, GERD who presents emergency department for evaluation with complaint of chest pain. No evidence of volume overload or shock on exam. Initial EKG without signs of acute ischemia or STEMI. Low suspicion for acute PE (Wells low risk), pneumothorax, thoracic aortic dissection, cardiac effusion / tamponade. No recent trauma or injury, no tracheal deviation, unlikely tension pneumothorax. No recent URI symptoms to suggest viral illness, pneumonia, costochondritis. No abdominal tenderness upon palpation, negative Mcdowell sign, unlikely acute cholecystitis, choledocholithiasis, no fever or jaundice to suggest acute cholangitis, may possibly be biliary colic secondary to cholelithiasis. Denies associated acid reflux, no tenderness upon palpation over the epigastrium or left upper quadrant to suggest gastritis, no recent hematemesis history less likely to suggest PUD. Denies excessive alcohol consumption, history of diabetes, lower suspicion acute pancreatitis. Reviewed potential for muscular pathology as she does endorse physical strain getting into her 's listed truck, reporting that pain initially was reproducible upon palpation however it has resolved at this time. Overall, was considered given higher risk features, HEART score: 4. Serum labs overall unremarkable. High sensitive troponin was within normal range. Pending delta troponin, patient signed out to my attending Dr. Mtz, I otherwise anticipate discharge home outpatient follow-up with primary care provider with strict return precautions. All questions by patient has been answered. I received sign-out from my colleague PERSONAL BANKING ASSISTANT Itzel, troponin x2 negative. Patient is source of pain likely musculoskeletal. Differential Diagnosis Differential Diagnoses: The differential diagnosis associated with the presentation includes (See narrative above) Admission/Observation Consideration of admission/observation: Escalation of care including admission/observation considered (See narrative above and course narrative for further detail) Lab Data MDM Lab Attestation statement: I reviewed the patient's lab results. 05/25/25 01:24 05/25/25 01:24 Labs: Lab Results 05/25/25 05/25/25 Range/Units 01:24 03:40 WBC 6.8 (4.8-10.8) X10*3/uL RBC 4.16 L (4.20-5.50) X10*6/uL Hgb 11.6 L (12.0-16.0) g/dl Hct 35.4 L (37.0-47.0) % MCV 85.1 (80.0-98.0) fL MCH 27.9 (27.0-33.0) pg MCHC 32.8 (31.0-35.0) g/dl RDW 13.2 (11.0-16.0) % Plt Count 145 L D (160-400) X10*3/uL MPV 10.8 (9.4-12.3) fL Absolute Nucleated RBC 0.000 (0.0-0.012) X10*3/uL Nucleated RBC % (auto) 0.0 (0.0-0.2) /100WBC Sodium 142 (135-145) mmol/L Potassium 3.6 (3.3-5.1) mmol/L Chloride 106 (96-108) mmol/L Carbon Dioxide 26 (22-29) mmol/L Anion Gap 14 (12-20) BUN 16 (9-16) mg/dL Creatinine 0.60 (0.5-1.4) mg/dL Estim Creat Clear Calc -20.6 Estimated GFR > 60 Random Glucose 157 H (60-115) mg/dL Calcium 9.1 (8.4-10.2) mg/dL Magnesium 1.7 (1.6-2.6) mg/dL Total Bilirubin 0.3 (0.0-1.0) mg/dL AST 27 (5-31) U/L ALT 24 (0-31) U/L Alkaline Phosphatase 75 (39-117) U/L Troponin I High Sens < 2.7 < 2.7 (<3.5-17.0) ng/L B-Natriuretic Peptide 25 (<100) pg/mL Total Protein 6.8 (6.5-8.0) g/dL Albumin 3.9 (3.5-5.0) g/dL Lipase 34 (8-78) U/L Independent Interpretation I performed an independent interpretation of an: EKG (EKG reveals normal sinus rhythm with a ventricular rate of 92, normal MARIE, QTC 432, no ST-elevation, no T-wave inversion) and Plain X-Ray (No consolidation or infiltrate, no pleural effusions) Radiology Impression Discussion of test interpretation with radiology: I have reviewed the radiologist's reading. Radiologist Impression: 1 view chest x-ray Comparison: None provided Findings: The lungs are clear. Heart size is normal. No acute fracture. IMPRESSION: 1. No acute findings. External Record Review External record reviewed: Outpatient record Chronic Conditions Patient?s care impacted by: Other (See narrative above) Discharge Plan Discharge Clinical Impression: Chest pain Qualifiers: Chest pain type: unspecified Qualified Code(s): R07.9 - Chest pain, unspecified Patient Disposition: Home, Self-Care Instructions: Chest Pain (ED), Chest Wall Pain (ED) Additional Instructions: You were evaluated in the emergency department for chest pain with onset prior to arrival and resolution while in the emergency department without any intervention. Blood work was very reassuring today in addition to EKG, does not appear consistent with a heart attack. Chest x-ray did not show any abnormal findings. Recommend that you follow-up with your primary care provider. Return to emergency department any new or worsening symptoms or concerns which include but is not limited to chest pain, shortness of breath, difficulty breathing, dizziness, lightheadedness, near passing out, numbness or tingling of the extremities nausea with persistent vomiting, abdominal pain. Prescriptions: No Action cefuroxime axetil 500 mg tablet 500 mg PO Q12H Qty: 10 0RF Gaviscon Extra Strength 254-237.5 mg/5 mL suspension 10 ml PO QID PRN (Reason: dyspepsia) Qty: 355 0RF cetirizine 10 mg Tablet 10 mg PO DAILY sucralfate [Carafate] 1 gram tablet 1 g PO BID Qty: 60 0RF Centrum Women 18-400 mg-mcg tablet 1 tab PO DAILY cholecalciferol (vitamin D3) 50 mcg (2,000 unit) tablet 50 mcg PO DAILY sertraline 50 mg tablet 50 mg PO DAILY aspirin 81 mg tablet,delayed release (DR/EC) 81 mg PO DAILY omeprazole 20 mg capsule,delayed release(DR/EC) 20 mg PO DAILY atorvastatin 40 mg tablet 40 mg PO BEDTIME docusate sodium 100 mg capsule 100 mg PO DAILY (DME) lancets [FreeStyle Lancets] 28 gauge misc See Rx Instructions .ROUTE BID Qty: 100 Rx Instructions: As directed losartan 50 mg tablet 50 mg PO DAILY (DME) FreeStyle Lite Strips Strip See Rx Instructions Not Applicable BID Qty: 10 Rx Instructions: As directed Fish Oil 100-160-1,000 mg capsule 1 cap PO DAILY Trulicity 1.5 mg/0.5 mL pen injector subcut ascorbic acid (vitamin C) 500 mg capsule PO Referrals: Physician,Unknown J [Primary Care Provider, Medical] Print Language: Welsh
--- NOTE | 2025-05-25 02:12 | PC.NURSE ---
Addendum entered by Isidoro Urrutia RN 05/25/25 02:21: AUTO DEALER now at bedside. pt endorsing nausea without vomiting at this time Addendum entered by Isidoro Urrutia RN 05/25/25 02:16: AUTO DEALER Raul tigre Original Note: states symptoms resolved at this time
[2025-05-25 03:20] VITALS: BP 149/71; PULSE 114; RESP 22; TEMP 37.1; O2SAT 98
[2025-05-25 04:06] LABS: Troponin-I High Sensitivity < 2.7 ng/L (<3.5-17.0)
[2025-05-25 04:14] VITALS: BP 149/71; PULSE 88; RESP 16; TEMP 37.1; O2SAT 98
== END 2025-05-25 04:15 | disposition home or self-care (01) ==
PROVIDERS: Nurse Practitioner Family; Emergency Provider Emergency Medicine
DX: R07.89 Other chest pain (principal); I10 Essential (primary) hypertension; E11.9 Type 2 diabetes mellitus without complications; R11.0 Nausea; Z79.899 Other long term (current) drug therapy; Z79.85 Long-term (current) use of injectable non-insulin antidiabetic drugs
CPT/HCPCS: 36415; 71045; 80053; 83690; 83735; 83880; 84484; 85027; 93005; 99283; 99284

== ENCOUNTER → 2025-05-25 01:13 | Outpatient (BNV) | payer OTHER, SELFPAY | PROVIDERS: Emergency Provider Emergency Medicine; Visit Provider Internal Medicine | DX: R07.89 Other chest pain (principal) | CPT/HCPCS: 93010 ==

== ENCOUNTER → 2025-06-05 15:59 | Outpatient (REF) | payer OTHER, SELFPAY ==
--- OUTSIDE RECORDS SUMMARY | 2025-06-05 16:02 | XMS_ITS | Patient Health Record ---
Author Organization [facility] Address [address] [place] [address] Care Team Providers Care Vacuum Spindle Sander Name Role Phone Anna Marie Lugo M.D. Primary Care Provider Lauro Lock Jr Unavailable Allergies Allergen (clinical drug ingredient) Drug/Non Drug Allergy documented on EMR Reaction Allergy Type Onset Date Status Motrin Unknown Drug Allergy Active Reason For Referral No Information Medications Medication [...] Problem Status W/U Status Risk Notes Problem [id number] Constipation, unspecified constipation type (K59.00) Active confirmed Plan Of Treatment Future Test Test Name Order Date COLONOSCOPY 03/01/2014 COLONOSCOPY 12/28/2023 Insurance Providers Payer Name Payer Address Payer Phone Subscriber Number Group Number Insured Name Patient Relationship to Insured Coverage Start Date Coverage End Date [facility] [address] Attn Claims SETH White [phone] [id number] ALEXANDRA FUNEZ Self - patient is the insured Medical (General) History Medical History History ICD Code Gastroesophageal reflux dise ase, EGD 07/07, no H. pylori or Davila's esophagus. Diabetes type 2 Nephrolithiasis Hyperlipidemia Mitral valve regurgitation Elevated body mass index Colonoscopy 12/14, hyperplastic polyps, t en-year followup Surgical History Surgery Date(Month/Year) tubal ligation
--- OUTSIDE RECORDS SUMMARY | 2025-06-05 16:02 | XMS_ITS | Clinical Summary ---
Author Organization [address] [facility] Address [address] [place] [address] Phone Care Team Providers Care Contract Administrative Assistant Name Role Phone Chery Lugofer Raul LOUIS Primary Care Provider [phone] Allergies Active Allergy Reactions Criticality Noted Date Comments Ibuprofen 04/12/2025 Medications lidocaine (LIDODERM) 5 % patchIndication s:Neuritis Apply 1 patch topically 1 (one) time each day. Remove & discard patch within 12 hours or as directed by . 30 each 2 07/11/20 25 Active Encounters Date Type Department Care Team Description 04/12/2025 9:15 AM EDT Consult Orthopedic Surgery - [place] [address] [facility] [address] [place] [address] Eleuterio Santiago, CHINTAN Pain in [...] Care Team (Late st Contact Info) Description 07/12/2025 8:15 AM EDT Office Visit Orthopedic Surgery - [place] [address] [address] Eleuterio Santiago, DPM [address] [address] Health Maintenance Due Date Last Done Comments [...] Diabetes: Annual Urine Albumin-Creatinine Ratio (uACR) 04/12/2025 Influenza Vaccine (#1) 2025 , 11/30/2023, 08/25/2023, Additional history exists Diabetes: Blood Sugar Control Test (HGBA1C) 10/07/2025 [...] Completed 02/17/2024, 01/17/2015, 08/28/2014, Additional history exists HIB Vaccines Aged Out [...] % Blood Venous blood specimen / Unknown us Historical Provider LAB BLOOD ORDERABLES Muriel l Result * (ABNORMAL) Lipid panel (04/22/1999) LDL/HDL Ratio 5(A) <=4 Triglycerides 380(A) <=200 mg/dL Cholesterol 203(A) <=200 mg/dL HDL 40 >=34 mg/dL LDL Cholesterol 87 0 - 130 mg/dL Blood Venous blood specimen / Unknown us Historical Provider LAB BLOOD ORDERABLES Muriel l Result from Last 3 Months or Most Recently Relevant to Health Maintenance Insurance , [address] [place] [address] [employer] MEDICARE Member Subscriber Plan / Payer (Ef fective 2024-Present) Name:ALEXANDRA SAMSON Relation to Subscriber:Self Name:Alexandra Samson Payer ID:[id number] Group ID:[id number] Type:Not on file Address: [facility] [address] [address] MEDICAID - [place] Care Teams Contract Administrative Assistant Relationship Specialty Start Date End Date Lorene Lugo DO [address] [place] [address] PCP - General Family Medicine 11/21/24
--- OUTSIDE RECORDS SUMMARY | 2025-06-05 16:02 | XMS_ITS | Encounter Summary ---
Author Organization [employer] Address [address] [facility] 7[address] [place] [address] Care Team Providers Care Supervisor Small Appliance Assembly Name Role Phone Lorene Lugo DO Primary Care Provider PuKeiko guzman PharmD Unavailable Reason for Visit * Reason Comments Med Refill Encounter Details Date Type Department Care Team (Late st Contact Info) Description 04/13/2024 Refill [facility] [address] [place], [place] [phone] Lorene Lugo DO [address] [place] [address] Social History Tobacco Use Types Packs/Day Years [...] Author Blood Pressure < 140/90 Blood Pressure 144/77(2024 11:35 AM EDT) No Dellogono, Alo, PharmD Record [...] as of this encounter Care Teams Supervisor Small Appliance Assembly Relationship Specialty Start Date End Date Lorene Lugo DO [address] [place] [address] PCP - General Family Medicine 11/30/18 Puia, Keiko, PharmD [address] [place] [address] Pharmacist Internal Medicine 06/19/23 04/09/25 documented as of this encounter
== END ==
LOC: HO.SL 15:59
PROVIDERS: PCP Family Medicine; Visit Provider Family Medicine
DX: G47.30 Sleep apnea, unspecified (principal)
CPT/HCPCS: 95806

== ENCOUNTER → 2025-06-05 21:00 | Outpatient (BNV) | payer OTHER, SELFPAY | PROVIDERS: PCP Family Medicine; Visit Provider Internal Medicine | DX: R06.83 Snoring (principal) | CPT/HCPCS: 95806 ==

== ENCOUNTER 2025-06-06 08:39 | Outpatient (AMB) | payer OTHER, SELFPAY ==
--- NOTE | 2025-06-06 08:48 | A.OFFVIS_ITS ---
Vital Signs 06/06/25 08:50 Height 5 ft Weight 189 lb BMI 36.9 Intake Visit Reasons: New prob rt middle finger stiffness Intake Note: Cheryl 64 yr old right hand dominant female presents today for a new problem visit. States she is having pain and stiffness in her right middle finger for the last year. States her finger catches and locks, soreness and pain if she hurts that finger accidentally. She is S/P right De Quervain's release, DOS: 10/13/22 states surgery resolved her pain. Denies numbness or tingling. Patient also mention she has pain in most of her finger joints and she is already following up with a rhuematologist. Allergies ibuprofen (From Motrin) Allergy (Mild, Verified 06/06/25 08:53) Rash HPI HPI New prob rt middle finger stiffness: Details: Cheryl is a 64 year old right hand dominant Diabetic woman who presents with complaints of right middle finger pain & stiffness. She complains of pain & stiffness in her right middle finger along with occasional locking & catching. She says this has been present for ~1 year now. She denies any numbness or tingling. Her most recent HgA1c was 6.2% on 04/06/25. 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 Review of Systems Const All systems reviewed & are unremarkable except as noted in HPI and below Physical Exam Vital Signs: BMI result Body Mass Index 36.9 Const General: no acute distress and alert Orientation/consciousness: patient oriented x3 Neuro General: patient oriented x3 Extrem Other: Evaluation of Right Upper Extremity: The patient is alert, oriented, and in no acute distress Neuro: Median, Ulnar, Radial nerves motor and sensory intact and sensation is normal to the tips of all digits Vascular: Cap refill brisk ROM: She can make a fist and extend all her digits No locking or catching of the right middle finger. Please note that after the steroid injection we saw visible locking and catching. Tender over the middle finger a1 timur Radiographs: 3 views of the right hand from 05/05/24 were reviewed by me today in clinic. They show no fractures or dislocations. She has some early arthritic changes in multiple DIP joints Psych Appearance: grossly normal Affect: normal affect Attitude: cooperative Office Procedures AMB Fracture Care Details: No fracture, injection Fracture Billing Code: Fracture Billing Code Assessment & Plan Assessment & Plan (1) Trigger finger, right middle finger: Code(s): M65.331 - Trigger finger, right middle finger Category: Medical Plan Assessment & Plan: 1. Right middle finger trigger finger I educated her about this condition I discussed operative and non-operative treatment options The patient would like to proceed with an injection She will work on ROM exercises at home Injection #1: The risks and benefits of a steroid injection including but not limited to risk of damage to blood vessels, nerves, tendons, infection, skin bleaching, failure to improve symptoms, increased pain, and possible need for further injections or other intervention were discussed with the patient and the patient wishes to proceed with the steroid injection. Once consent was obtained, I sterilely prepped the area over the A1 timur of the flexor tendon sheath of the Right middle finger. I then injected the flexor tendon sheath with a combination of 1 mL of dexamethasone (4mg/ml), and 1% lidocaine. The patient tolerated the procedure well with no complications.. Please note the patient had visible locking and catching after the steroid injection. If the patient continues to have locking and catching 4-6 weeks following this injection, they may call to schedule appointment to discuss alternative treatment options Follow-up prn 2. Right De Quervain's Tenosynovitis, S/P release DOS: 10/13/22 Doing well, no complaints Scribed for Antonia Saavedra MD by Ricky Gavin, emergency medical services coordinator, on 06/06/25 at 9:10 AM, EST. Coding Level of Care Code Est Pt Level 4 (97920) Diagnoses Trigger finger, right middle finger M65.331 CPT Codes Fracture Care - Fracture Billing Code: Fracture Billing Code ([id number])
[2025-06-06 08:50] VITALS: BMI 36.9
--- OUTSIDE RECORDS SUMMARY | 2025-06-06 08:53 | XMS_ITS | Patient Health Record ---
Author Organization [facility] Address [address] [place] [address] Care Team Providers Care Dry Drug Worker Name Role Phone Anna Marie Lugo M.D. [...] Problem Status W/U Status Risk Notes Problem [id number] Constipation, unspecified constipation type (K59.00) Active confirmed Plan Of Treatment Future Test Test Name Order Date COLONOSCOPY 03/01/2014 COLONOSCOPY 12/28/2023 Insurance Providers Payer Name Payer Address Payer Phone Subscriber Number Group Number Insured Name Patient Relationship to Insured Coverage Start Date Coverage End Date [facility] [address] Attn Claims SETH White [id number] ALEXANDRA FUNEZ Self - patient is the insured Medical (General) History Medical History History ICD Code Gastroesophageal reflux dise ase, EGD 07/07, no H. pylori or Davila's esophagus. Diabetes type 2 Nephrolithiasis Hyperlipidemia Mitral valve regurgitation Elevated body mass index Colonoscopy 12/14, hyperplastic polyps, t en-year followup Surgical History Surgery Date(Month/Year) tubal ligation
--- OUTSIDE RECORDS SUMMARY | 2025-06-06 08:53 | XMS_ITS | Encounter Summary ---
Author Organization [employer] Address [address] [facility] [address] [place] [address] Care Team Providers Care Gunner'S Mate G Name Role Phone Lorene Lugo DO Primary Care Provider PuKeiko guzman PharmD Unavailable Reason for Visit * Reason Comments Med Refill Encounter Details Date Type Department Care Team (Late st Contact Info) Description 04/13/2024 Refill [facility] [address] [place], [place] [phone] Lorene Lugo DO [address] [place] [address] Social History Tobacco Use Types Packs/Day Years [...] documented as of this encounter Care Teams Gunner'S Mate G Relationship Specialty Start Date End Date Lorene Lugo DO [address] [place] [address] PCP - General Family Medicine 11/30/18 Puia, Keiko, PharmD [address] [place] [address] Pharmacist Internal Medicine 06/19/23 04/09/25 documented as of this encounter
--- OUTSIDE RECORDS SUMMARY | 2025-06-06 08:53 | XMS_ITS | Clinical Summary ---
Author Organization 175 [facility] Address 175 [place] [address] Phone Care Team Providers Care Reproduction Artist Name Role Phone Chery Lugofer Raul LOUIS Primary Care Provider [phone]- [phone] Allergies Active Allergy Reactions Criticality Noted Date Comments Ibuprofen 04/12/2025 Medications lidocaine (LIDODERM) 5 % patchIndication s:Neuritis Apply 1 patch topically 1 (one) time each day. Remove & discard patch within 12 hours or as directed by . 30 each 2 07/11/20 25 Active Encounters Date Type Department Care Team Description 04/12/2025 9:15 AM EDT Consult Orthopedic Surgery - [place] [address] 175 [facility] [address] [place] [address] Eleuterio Santiago, CHINTAN Pain in [...] AM EDT Office Visit Orthopedic Surgery - [place] [address] [address] Eleuterio Santiago, DPM [address] [address] Health Maintenance Due Date Last Done Comments [...] ID:[id number] Group ID:[id number] Type:Not on file Address: [facility] [address] [id number] MEDICAID - [place] Care Teams Reproduction Artist Relationship Specialty Start Date End Date Lorene Lugo DO [address] [place] [address] PCP - General Family Medicine 11/21/24
== END 2025-06-06 09:32 | disposition home or self-care (01) ==
PROVIDERS: PCP Family Medicine; Visit Provider Orthopaedic Surgery
DX: M65.331 Trigger finger, right middle finger (principal)
CPT/HCPCS: 20550; 99214

== ENCOUNTER → 2025-06-06 08:39 | Outpatient (BNVA) | payer OTHER, SELFPAY | PROVIDERS: PCP Family Medicine; Visit Provider Orthopaedic Surgery | DX: M65.331 Trigger finger, right middle finger (principal) | CPT/HCPCS: 20550; 99212; J1100; J2003 ==

== ENCOUNTER 2025-06-27 09:16 | Outpatient (AMB) | payer OTHER, SELFPAY ==
--- NOTE | 2025-06-27 09:19 | A.OFFVIS_ITS ---
Intake Visit Reasons: OV- Left Knee OA Intake Note: Cheryl is a 64 year old female who presents today for a follow up of her left knee OA. At her last visit back in 05/22/22 spoke about getting a cortisone injection or Physical therapy which she declined. Patient reports she is not having pain at the moment. She states her pain is getting worse when she is walking. Patient has tried Tylenol with mild relief. Allergies ibuprofen (From Motrin) Allergy (Mild, Verified 06/27/25 09:31) Rash HPI HPI OV- Left Knee OA: Details: Ms. Samson is a 64-year-old female who presents to the office today for evaluation of left lower extremity pain. Patient initially was being evaluated for the left knee. However, after further interview the patient reports pain that begins in the lateral aspect of the hip and radiates distally. She is unable to sleep on this side. She has increased pain with ambulation. She uses a cane to assist with ambulation. Of note, she did have a mechanical fall in February of this year and reported that she felt numbness and tingling in bilateral lower extremities after the fall for 2 weeks. She states that she was able to ambulate but with the use of a cane at that time. Additionally, the patient was seen by Dr. Caballero on 11/17/2024 for chronic left hip pain mostly at night. At that time, she was diagnosed with chronic lateral hip pain. X-rays from 2022 did show calcification in the trochanter. Dr. Bee ruled out lumbar radiculopathy. 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 No tenderness to palpation along the medial or lateral joint lines. Full knee extension and flexion. Negative Mat's. NVI. Left hip full hip internal external rotation without groin pain. Tenderness to palpation over the greater trochanteric bursa. 4/5 strength with resisted hip flexion, knee extension, abduction, and abduction. Able to perform straight leg raise. NVI. Assessment & Plan Assessment & Plan (1) Greater trochanteric bursitis of left hip: Code(s): M70.62 - Trochanteric bursitis, left hip Category: Medical Plan Ms. Samson is a 64-year-old female who presents to the office today for evaluation of left lower extremity pain. Patient initially was being evaluated for the left knee. However, after further interview the patient reports pain that begins in the lateral aspect of the hip and radiates distally. She is unable to sleep on this side. She has increased pain with ambulation. She uses a cane to assist with ambulation. Of note, she did have a mechanical fall in February of this year and reported that she felt numbness and tingling in bilateral lower extremities after the fall for 2 weeks. She states that she was able to ambulate but with the use of a cane at that time. Additionally, the patient was seen by Dr. Caballero on 11/17/2024 for chronic left hip pain mostly at night. At that time, she was diagnosed with chronic lateral hip pain. X-rays from 2022 did show calcification in the trochanter. Dr. Bee ruled out lumbar radiculopathy. While in the office today, the patient also states that she had a left hip greater troch bursa injection in the past which has helped her greatly. She feels as though her symptoms are similar to those in which she received a cortisone injection in the past. The patient was offered a cortisone injection in the left hip greater trochanteric bursa with 40 mg of DepoMedrol. The patient was explained the risks, benefits, and alternatives to receiving this injection. After receiving consent for the injection, the patient had the procedure done while in the office today. The patient tolerated the procedure well with no complications. Due to the patient?s history of diabetes, they were instructed to monitor their blood glucose level. The patient was informed that they could see a rise in their numbers and if the numbers became too high, they were instructed to call their PCP. The patient was also informed that they could have facial flushing as a side effect of the injection, but this will pass. Follow-up will be PRN, or sooner if needed Coding Level of Care Code Est Pt Level 3 (15907) Diagnoses Greater trochanteric bursitis of left hip M70.62
--- OUTSIDE RECORDS SUMMARY | 2025-06-27 09:43 | XMS_ITS | Clinical Summary ---
Author Organization 175 [facility] Address 175 [place] [address] Phone Care Team Providers Care Bingo Clerk Name Role Phone ChanLorene lockett Raul LOUIS Primary Care Provider [phone]- [phone] Allergies Active Allergy Reactions Criticality Noted Date Comments Ibuprofen 04/12/2025 Medications lidocaine (LIDODERM) 5 % patchIndication s:Neuritis Apply 1 patch topically 1 (one) time each day. Remove & discard patch within 12 hours or as directed by . 30 each 2 07/11/20 25 Active Encounters Date Type Department Care Team Description 06/22/2025 Lab Requisition [facility] - Main Lab [address] [facility] [place] [address] Shant Kohler, PA Calculus of kidney 04/12/2025 9:15 AM EDT Consult Orthopedic Surgery - [place] 250 175 [facility] [address] [place] [address] Eleuterio Santiago, DPM Pain in right ankle and joints of [...] AM EDT Office Visit Orthopedic Surgery - [place] [address] [phone] Eleuterio Santiago, DPM [address] [address] Health Maintenance Due Date Last Done Comments Breast Cancer Screening 1958 Diabetes: Annual Foot Exam 1968 Diabetes: Annual Retina Eye Exam 1968 Hepatitis A Vaccines (1 of 2 - Risk 2-dose series) 1977 COVID-19 Vaccine () 07/31/2024 12/17/2021, 05/30/2021, 05/09/2021 Falls Risk Assessment 11/22/2024 Hepatitis C Screening 11/22/2024 Medicare Annual Wellness Visit 11/22/2024 Osteoporosis Screening (Bone Density Screening) 11/22/2024 Social Influencers of Health Screening 11/22/2024 Depression Screening 11/30/2024 Diabetes: Annual Urine Albumin-Creatinine Ratio (uACR) 04/12/2025 [...] Procedure Name Priority Date/Time Associated Diagnosis Comments PARATHYROID HORMONE INTACT Routine 06/22/2025 2:25 PM EDT [facility] HEMOGLOBIN A1C Routine 04/22/1999 LIPID PANEL Routine 04/22/1999 from Last 3 Months or Most Recently Relevant to Health Maintenance Results * Parathyroid hormone intact (06/22/2025 2:25 PM EDT) PTH 50.1 18.5 - 88.0 pcg/mL LAB CHEMISTRY METHOD 06/22/2025 6:46 PM EDT [facility] Blood Venous blood specimen / Unknown 06/22/2025 2:25 PM EDT 06/22/2025 6:13 PM EDT Shant ANN LAB BLOOD ORDERABLES Final Res ult YUNG [facility] ([facility] [address] [place] [address], * Hemoglobin A1c (04/22/1999) Hemoglobin A1C 6.2 [...] Most Recently Relevant to Health Maintenance Insurance [employer] MEDICARE Member Subscriber Plan / Payer (Ef fective 2024-Present) Name:ALEXANDRA SAMSON Relation to Subscriber:Self Name:Alexandra Samson Payer ID:[id number] Group ID:[id number] Type:Not on file Address: [place] [address] [address] MEDICAID - [place] Care Teams Bingo Clerk Relationship Specialty Start Date End Date Lorene Lugo DO [address] [place] [address] PCP - General Family Medicine 11/21/24
--- OUTSIDE RECORDS SUMMARY | 2025-06-27 09:43 | XMS_ITS | Encounter Summary ---
Author Organization [employer] Address [address] [facility] 7t [place] [address] Care Team Providers Care Steward/Stewardess Room Name Role Phone Lorene Lugo DO Primary Care Provider PuKeiko guzman PharmD Unavailable [phone] Reason for Visit * Reason Comments Med Refill Encounter Details Date Type Department Care Team (Late st Contact Info) Description 04/13/2024 Refill [facility] MED & PEDS [address] [place], [place] [phone] Lorene Lugo DO [address] [place] [address] Social History Tobacco Use Types Packs/Day Years [...] documented as of this encounter Care Teams Steward/Stewardess Room Relationship Specialty Start Date End Date Lorene Lugo DO [address] [place] [address] PCP - General Family Medicine 11/30/18 Puia, Keiko, PharmD [address] [place] [address] Pharmacist Internal Medicine 06/19/23 04/09/25 documented as of this encounter
--- OUTSIDE RECORDS SUMMARY | 2025-06-27 09:44 | XMS_ITS | Patient Health Record ---
Author Organization [facility] Address [address] [place] [address] Care Team Providers Care Melt Superintendant Name Role Phone Anna Marie Lugo M.D. [...] Problem Status W/U Status Risk Notes Problem [id number] Constipation, unspecified constipation type (K59.00) Active confirmed Plan Of Treatment Future Test Test Name Order Date COLONOSCOPY 03/01/2014 COLONOSCOPY 12/28/2023 Insurance Providers Payer Name Payer Address Payer Phone Subscriber Number Group Number Insured Name Patient Relationship to Insured Coverage Start Date Coverage End Date [facility] [address] Attn Claims [place] [id number] ALEXANDRA FUNEZ Self - patient is the insured Medical (General) History Medical History History ICD Code Gastroesophageal reflux dise ase, EGD 07/07, no H. pylori or Davila's esophagus. Diabetes type 2 Nephrolithiasis Hyperlipidemia Mitral valve regurgitation Elevated body mass index Colonoscopy 12/14, hyperplastic polyps, t en-year followup Surgical History Surgery Date(Month/Year) tubal ligation
== END 2025-06-27 10:21 | disposition home or self-care (01) ==
LOC: HO.HOS 09:17
PROVIDERS: PCP Family Medicine; Visit Provider Physician Assistant
DX: M70.62 Trochanteric bursitis, left hip (principal)
CPT/HCPCS: 20610; 99213

== ENCOUNTER → 2025-06-27 09:16 | Outpatient (BNVA) | payer OTHER, SELFPAY | PROVIDERS: PCP Family Medicine; Visit Provider Physician Assistant | DX: M70.62 Trochanteric bursitis, left hip (principal) | CPT/HCPCS: 20610; 99212; J1010; J2003 ==

== ENCOUNTER 2025-07-01 00:34 | Emergency (ER) | payer OTHER, SELFPAY ==
[2025-07-01 00:35] VITALS: BP 166/71; PULSE 94; RESP 15; TEMP 36.9; O2SAT 97; BMI 36.7
--- OUTSIDE RECORDS SUMMARY | 2025-07-01 00:52 | XMS_ITS | Encounter Summary ---
Author Organization [employer] Address [address] [facility] [address] [place] [address] Care Team Providers Care Gleason Gear Generator Name Role Phone Lorene Lugo DO Primary Care Provider PuKeiko guzman PharmD Unavailable Reason for Visit * Reason Comments Med Refill Encounter Details Date Type Department Care Team (Late st Contact Info) Description 04/13/2024 Refill [facility] MED & PEDS [address] [place], [place] [phone] Lorene Lugo DO [address] [place] [address] Social History Tobacco Use Types Packs/Day Years [...] documented as of this encounter Care Teams Gleason Gear Generator Relationship Specialty Start Date End Date Lorene Lugo DO [address] [place] [address] PCP - General Family Medicine 11/30/18 Puia, Keiko, PharmD [address] [place] [address] Pharmacist Internal Medicine 06/19/23 04/09/25 documented as of this encounter
--- OUTSIDE RECORDS SUMMARY | 2025-07-01 00:52 | XMS_ITS | Patient Health Record ---
Author Organization [facility] Address [address] [place] [address] Care Team Providers Care Group Fitness Manager Name Role Phone Anna Marie Lugo M.D. Primary Care Provider Lauro Lock Jr Unavailable [phone] Allergies Allergen (clinical drug ingredient) Drug/Non Drug [...] Problem Status W/U Status Risk Notes Problem [id number] Constipation, unspecified constipation type (K59.00) Active confirmed Plan Of Treatment Future Test Test Name Order Date COLONOSCOPY 03/01/2014 COLONOSCOPY 12/28/2023 Insurance Providers Payer Name Payer Address Payer Phone Subscriber Number Group Number Insured Name Patient Relationship to Insured Coverage Start Date Coverage End Date [facility] [address] Attn Claims [place] [id number] ALEXANDRA FUNEZ Self - patient is the insured Medical (General) History Medical History History ICD Code Gastroesophageal reflux dise ase, EGD 07/07, no H. pylori or Davila's esophagus. Diabetes type 2 Nephrolithiasis Hyperlipidemia Mitral valve regurgitation Elevated body mass index Colonoscopy 12/14, hyperplastic polyps, t en-year followup Surgical History Surgery Date(Month/Year) tubal ligation
--- OUTSIDE RECORDS SUMMARY | 2025-07-01 00:52 | XMS_ITS | Clinical Summary ---
Author Organization 175 [facility] Address 175 [place] [address] Phone Care Team Providers Care Dietary Worker Name Role Phone ChanLorene lockett Raul LOUIS Primary Care Provider [phone]- [phone] Allergies Active Allergy Reactions Criticality Noted Date Comments Ibuprofen 04/12/2025 Medications lidocaine (LIDODERM) 5 % patchIndication s:Neuritis Apply 1 patch topically 1 (one) time each day. Remove & discard patch within 12 hours or as directed by . 30 each 2 07/11/20 25 Active Encounters Date Type Department Care Team Description 06/22/2025 Lab Requisition [facility] - Main Lab [address] [facility] [place] [address] Shant Kohler, PA Calculus of kidney 04/12/2025 9:15 AM EDT Consult Orthopedic Surgery - [place] 250 175 [facility] [address] [place] [address] Eleuterio Santiago, DPM Pain in [...] AM EDT Office Visit Orthopedic Surgery - [place] [address] [phone] Eleuterio Santiago, DPM [address] [address] Health Maintenance Due Date Last Done Comments [...] LAB CHEMISTRY METHOD 06/22/2025 6:46 PM EDT [facility] Blood Venous blood specimen / Unknown 06/22/2025 2:25 PM EDT 06/22/2025 6:13 PM EDT Shant ANN LAB BLOOD ORDERABLES Final Res ult Y[facility]G [facility] ([facility]) [facility] [address] [place] [address], * Hemoglobin A1c (04/22/1999) Hemoglobin A1C 6.2 [...] ID:[id number] Group ID:[id number] Type:Not on file Address: [place] [address] [phone] MEDICAID - [place] Care Teams Dietary Worker Relationship Specialty Start Date End Date Lorene Lugo DO [address] [place] [address] PCP - General Family Medicine 11/21/24
[2025-07-01 00:54] LABS: MANUAL DIFF FLAG NO
[2025-07-01 01:06] LABS: Alanine Aminotransferase 27 U/L (0-31); Albumin Level 4.1 g/dL (3.5-5.0); Alkaline Phosphatase 89 U/L (39-117); Anion Gap 12 (12-20); Aspartate Amino Transferase 23 U/L (5-31); Blood Urea Nitrogen 15 mg/dL (9-16); Calcium 9.4 mg/dL (8.4-10.2); Carbon Dioxide 29 mmol/L (22-29); Chloride 104 mmol/L (96-108); Creatinine Clr Calc Pharmacy 86.4; Estimated Glomerular Filt Rate > 60; Lipase 37 U/L (8-78); Potassium 4.0 mmol/L (3.3-5.1); Sodium 141 mmol/L (135-145); Total Protein 7.0 g/dL (6.5-8.0)
[2025-07-01 01:07] LABS: Hematocrit 35.6 % (37.0-47.0); Hemoglobin 11.9 g/dl (12.0-16.0); Imm Gran Abs Auto 0.03 X10*3/uL (0.00-0.03); Imm Gran Pct Auto 0.3 % (0.0-0.4); Lymphocytes Absolute Auto 2.3 X10*3/uL (1.2-4.9); Mean Corpuscular HGB Conc 33.4 g/dl (31.0-35.0); Mean Corpuscular Hemoglobin 28.3 pg (27.0-33.0); Mean Corpuscular Volume 84.6 fL (80.0-98.0); NRBC Abs Auto 0.000 X10*3/uL (0.0-0.012); NRBC Pct Auto 0.0 /100WBC (0.0-0.2); Platelet Count 220 X10*3/uL (160-400); Red Blood Count 4.21 X10*6/uL (4.20-5.50); White Blood Count 9.5 X10*3/uL (4.8-10.8)
[2025-07-01 01:30] LABS: Resp Syncy Virus RNA Qual PCR NEGATIVE (Negative); SARS COV2 PCR INHOUSE NEGATIVE (Negative)
[2025-07-01 01:39] LABS: Appearance Urine Clear; Glucose Urine UA Negative (Negative); PH 6.5 (5.0-9.0); Specific Gravity - Urine 1.010 (1.005-1.025); UMIC TRIGGER UACC YES
[2025-07-01 01:41] LABS: UACC Culture Trigger YES
--- NOTE | 2025-07-01 02:19 | ECG_ITS ---
Test Reason : ABDOMINAL PAIN Blood Pressure : */* mmHG Vent. Rate : 79 BPM Atrial Rate : 79 BPM P-R Int : 146 ms QRS Dur : 80 ms QT Int : 352 ms P-R-T Axes : 45 43 51 degrees QTcB Int : 403 ms Normal sinus rhythm Normal ECG When compared with ECG of 25-May-2025 01:13, No significant change was found Referred By: Laureen Mtz Electronically Signed By: IMELDA ZELAYA MD
--- NOTE | 2025-07-01 02:19 | ED.GENADULT ---
HPI - General Adult General Chief complaint: Headache Stated complaint: abd pain + n/v Time Seen by Provider: 07/01/25 02:07 Source: patient Mode of arrival: ambulatory Limitations: no limitations History of Present Illness ED Provider: Dr. Laureen Mtz HPI narrative: Patient comes to the emergency room complaining of nausea. Patient states that last night around 21:00 she ate Cheerios with milk, went to bed, few hours later woke up and she was not feeling well. Denies vomiting or diarrhea, just a bit of nausea. No fever or chills, no URI or UTI symptoms. Related Data Home Medications ?Medication ?Instructions ?Recorded ?Confirmed aspirin 81 mg tablet,delayed 81 mg PO DAILY 03/15/21 06/15/24 release atorvastatin 40 mg tablet 40 mg PO BEDTIME 03/15/21 06/15/24 cholecalciferol (vitamin D3) 50 50 mcg PO DAILY 03/15/21 06/15/24 mcg (2,000 unit) tablet docusate sodium 100 mg capsule 100 mg PO DAILY 03/15/21 06/15/24 multivitamin-ferrous 1 tab PO DAILY 03/15/21 06/15/24 fumarate-folic acid 18 mg-400 mcg tablet omeprazole 20 mg capsule,delayed 20 mg PO DAILY 03/15/21 06/15/24 release sertraline 50 mg tablet 50 mg PO DAILY 03/15/21 06/15/24 losartan 50 mg tablet 50 mg PO DAILY 03/21/22 06/15/24 blood sugar diagnostic (FreeStyle #10 ea 05/22/22 06/15/24 Lite Strips) omega 6-tdb-dxx-fish oil 100 1 cap PO DAILY 05/22/22 06/15/24 mg-160 mg-1,000 mg capsule (Fish Oil) lancets 28 gauge (FreeStyle #100 ea 12/09/22 06/15/24 Lancets) cetirizine 10 mg tablet 10 mg PO DAILY 04/20/24 06/15/24 tirzepatide 5 mg/0.5 mL mg subcut 06/06/25 subcutaneous pen injector (Lalita) Previous Rx's ?Medication ?Instructions ?Recorded aluminum hydrox-magnesium carb 254 10 ml PO QID PRN dyspepsia #355 mL 03/17/25 mg-237.5 mg/5 mL oral suspension (Gaviscon Extra Strength) sucralfate 1 gram tablet (Carafate) 1 g PO BID #60 tabs 03/28/25 ondansetron 4 mg disintegrating 4 mg PO Q6H PRN nausea and 07/01/25 tablet vomiting #7 tabs Allergies Allergy/AdvReac Type Severity Reaction Status Date / Time ibuprofen (From Motrin) Allergy Mild Rash Verified 07/01/25 00:38 Review of Systems Review of Systems: Constitutional : No Weight loss, No Fever, No Chills, No Night Sweats, No Fatigue, No Malaise ENT/Mouth : No Hearing loss, No Ear Pain, No Nasal Congestion, No Sinus Pain, No Hoarseness, No sore throat, No Rhinorrhea, No Swallowing Difficulty Eyes: No Eye Pain, No Swelling, No Redness, No Foreign Body, No Discharge, No Vision Changes Cardiovascular : No Chest Pain, No SOB, No Dyspnea on Exertion, No Orthopnea, No Edema, No Palpitations Respiratory : No Cough, No Sputum, No Wheezing, No Smoke Exposure, No Dyspnea Gastrointestinal : Complaining of Nausea, No Vomiting, No Diarrhea, No Constipation, No abdominal Pain, No Hematochezia, No Melena Genitourinary : no irregular bleeding, No Dysuria, No Urinary Frequency, No Hematuria, No Urinary Incontinence, No Urgency, No Flank Pain, No Urinary Flow Changes, No Hesitancy Musculoskeletal : No joint pain, No Myalgias, No Joint Swelling Skin : No Skin Lesions, No rash Neuro : No Weakness, No Numbness, No Paresthesias, No Loss of Consciousness, No Dizziness, No Headache Psych : No Anxiety/Panic, No Depression, No SI/HI/AH/VH, No Social Issues, Heme/Lymph: No Bruising, No Bleeding,No Lymphadenopathy Endocrine : No Polyuria, No Polydipsia, No Temperature Intolerance [facility] Past Medical History Medical History Carpal tunnel syndrome of right wrist History of carpal tunnel syndrome GERD (gastroesophageal reflux disease) Arthritis HTN (hypertension) History of palpitations Mitral valve regurgitation Hyperlipidemia Nephrolithiasis Wrist pain, right Diabetes Surgical History Hx of colonoscopy History of esophagogastroduodenoscopy (EGD) History of tubal ligation Social History Social History Alcohol intake: never Patient Tobacco Use Status: Never used Tobacco Advance Directives: No Advance Directives Information Provided: No Do you have a plan to hurt others: No Plan Current occupational status: disabled 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 Oriented X3. No acute distress. well-appearing Eyes: Pupils equal, round and reactive to light. ENT: Pharynx normal. Neck: Normal inspection. Neck supple. No lymph nodes noted. No crepitus CVS: Normal heart rate and rhythm. Pulses normal. Normal S1 and S2 Respiratory: No respiratory distress. Breath sounds normal. No Wheezing. No rales Abdomen: Soft and nontender. No rigidity. No distention. Skin: Skin warm and dry. Normal skin color. Normal skin turgor. Extremities: No lower extremity edema. No Lacerations. No Rash Neuro: Oriented X 3. No motor deficit. No sensory deficit. Moving all extremities. No slurred speech. CN 2 through 12 grossly intact Psych: calm, cooperative, normal affect Vital Signs: Vital Signs - 24 hr 07/01/25 00:35 Temperature 98.5 F Pulse Rate 94 Respiratory Rate 15 Blood Pressure 166/71 H Pulse Oximetry 97 Oxygen Delivery Method Room Air BMI result Body Mass Index 36.7 Course Course Course Narrative: patient comes in complaining of a bit of nausea after eating Cheerios and milk, no vomiting or diarrhea labs pending Medical Decision Making Medical Decision Making [facility] Narrative: my interpretation of EKG: Normal sinus rhythm, heart rate 79, no ST segment depression or elevation, no T-wave inversion, QTC 403 my interpretation of labs, no significant abnormality in patient's hematology and chemistry, glucose 217, LFTs normal, lipase normal , serology negative on physical exam, there is no abdominal pain. patient was given p.o. Zofran and feeling better. Patient ready for discharge Differential Diagnosis Differential Diagnoses: The differential diagnosis associated with the presentation includes ( viral syndrome, gastritis, gastroenteritis, dyspepsia) Lab Data [facility] Lab Attestation statement: I reviewed the patient's lab results. 07/01/25 00:46 07/01/25 00:46 Labs: Lab Results 07/01/25 07/01/25 Range/Units 00:46 01:33 WBC 9.5 (4.8-10.8) X10*3/uL RBC 4.21 (4.20-5.50) X10*6/uL Hgb 11.9 L (12.0-16.0) g/dl Hct 35.6 L (37.0-47.0) % MCV 84.6 (80.0-98.0) fL MCH 28.3 (27.0-33.0) pg MCHC 33.4 (31.0-35.0) g/dl RDW 13.4 (11.0-16.0) % Plt Count 220 D (160-400) X10*3/uL MPV 10.5 (9.4-12.3) fL Immature Gran % (Auto) 0.3 (0.0-0.4) % Neut % (Auto) 65.1 (45-73) % Lymph % (Auto) 24.4 (20-40) % Van Zandt % (Auto) 9.0 (2-11) % Eos % (Auto) 0.9 (0-4) % Baso % (Auto) 0.3 (0-2) % Lymph # (Auto) 2.3 (1.2-4.9) X10*3/uL [place] Zandt # (Auto) 0.9 (0.1-1.2) X10*3/uL Eos # (Auto) 0.1 (0.0-0.4) X10*3/uL Baso # (Auto) 0.0 (0.0-0.2) X10*3/uL Abs Immat Gran (auto) 0.03 (0.00-0.03) X10*3/uL Absolute Neuts (auto) 6.2 (2.0-8.3) x10*3/uL Absolute Nucleated RBC 0.000 (0.0-0.012) X10*3/uL Nucleated RBC % (auto) 0.0 (0.0-0.2) /100WBC Sodium 141 (135-145) mmol/L Potassium 4.0 (3.3-5.1) mmol/L Chloride 104 (96-108) mmol/L Carbon Dioxide 29 (22-29) mmol/L Anion Gap 12 (12-20) BUN 15 (9-16) mg/dL Creatinine 0.62 (0.5-1.4) mg/dL Estim Creat Clear Calc 86.4 Estimated GFR > 60 Random Glucose 217 H (60-115) mg/dL Calcium 9.4 (8.4-10.2) mg/dL Total Bilirubin 0.3 (0.0-1.0) mg/dL AST 23 (5-31) U/L ALT 27 (0-31) U/L Alkaline Phosphatase 89 (39-117) U/L Total Protein 7.0 (6.5-8.0) g/dL Albumin 4.1 (3.5-5.0) g/dL Lipase 37 (8-78) U/L Urine Color Yellow Urine Appearance Clear Urine pH 6.5 (5.0-9.0) Ur Specific Clutier 1.010 (1.005-1.025) Urine Protein Negative (Neg-Trace) mg/dL Urine Glucose (UA) Negative (Negative) mg/dL Urine Ketones Negative (Negative) mg/dL Urine Blood Negative (Negative) Urine Nitrite Negative (Negative) Ur Leukocyte Esterase Small (1+) H (Negative) Urine RBC 0-2 (0-2) /HPF Urine WBC 6-10 H (0-5) /HPF Ur Squamous Epith Cells 0-2 (0-2) /HPF Urine Bacteria None Seen (None Seen) Hyaline Casts 0-2 (0-2) /LPF Influenza Type A (PCR) NEGATIVE (Negative) Influenza Type B (PCR) NEGATIVE (Negative) RSV RNA Qual (PCR) NEGATIVE (Negative) SARS-CoV-2 RNA (RT-PCR) NEGATIVE (Negative) Discharge Plan Discharge Clinical Impression: Dyspepsia Patient Disposition: Home, Self-Care Instructions: Abdominal Pain (ED) Additional Instructions: Please follow-up with your primary care physician tomorrow. If you have any worsening or new symptoms, please return to the emergency room or call 911 Prescriptions: New ondansetron 4 mg tablet,disintegrating 4 mg PO Q6H PRN (Reason: nausea and vomiting) Qty: 7 0RF No Action Gaviscon Extra Strength 254-237.5 mg/5 mL suspension 10 ml PO QID PRN (Reason: dyspepsia) Qty: 355 0RF cetirizine 10 mg Tablet 10 mg PO DAILY sucralfate [Carafate] 1 gram tablet 1 g PO BID Qty: 60 0RF Centrum Women 18-400 mg-mcg tablet 1 tab PO DAILY cholecalciferol (vitamin D3) 50 mcg (2,000 unit) tablet 50 mcg PO DAILY sertraline 50 mg tablet 50 mg PO DAILY aspirin 81 mg tablet,delayed release (DR/EC) 81 mg PO DAILY omeprazole 20 mg capsule,delayed release(DR/EC) 20 mg PO DAILY atorvastatin 40 mg tablet 40 mg PO BEDTIME docusate sodium 100 mg capsule 100 mg PO DAILY (DME) lancets [FreeStyle Lancets] 28 gauge misc See Rx Instructions .ROUTE BID Qty: 100 Rx Instructions: As directed losartan 50 mg tablet 50 mg PO DAILY (DME) FreeStyle Lite Strips Strip See Rx Instructions Not Applicable BID Qty: 10 Rx Instructions: As directed Fish Oil 100-160-1,000 mg capsule 1 cap PO DAILY Mounjaro 5 mg/0.5 mL pen injector subcut Print Language: Romanian
[2025-07-01 02:43] VITALS: BP 121/79; PULSE 71; RESP 17; TEMP 36.7; O2SAT 99
== END 2025-07-01 02:47 | disposition home or self-care (01) ==
PROVIDERS: Emergency Provider Emergency Medicine; PCP Family Medicine
DX: R10.13 Epigastric pain (principal); R11.0 Nausea; R51.9 Headache, unspecified; K21.9 Gastro-esophageal reflux disease without esophagitis; I10 Essential (primary) hypertension; I34.0 Nonrheumatic mitral (valve) insufficiency; E78.5 Hyperlipidemia, unspecified; E11.9 Type 2 diabetes mellitus without complications; Z79.85 Long-term (current) use of injectable non-insulin antidiabetic drugs
CPT/HCPCS: 80053; 81001; 83690; 85025; 87086; 87637; 93005; 99283; 99285

== ENCOUNTER → 2025-07-01 02:19 | Outpatient (BNV) | payer OTHER, SELFPAY | PROVIDERS: Emergency Provider Emergency Medicine; PCP Family Medicine; Visit Provider Internal Medicine Cardiovascular Disease | DX: R10.9 Unspecified abdominal pain (principal) | CPT/HCPCS: 93010 ==

== ENCOUNTER 2025-07-10 10:40 | Outpatient (AMB) | payer OTHER, SELFPAY ==
[2025-07-10 10:50] VITALS: BP 144/80; PULSE 83; TEMP 37.3; O2SAT 96; BMI 35.7
--- NOTE | 2025-07-10 10:50 | AM.OFFWIN_ITS ---
Intake Vital Signs 07/10/25 10:50 Height 5 ft Weight 183 lb BMI 35.7 BP 144/80 H Blood Pressure Location Rt brachial Position Sitting Pulse 83 Pulse Source Pulse Oximeter Temp 99.2 F Temp Source Oral Pulse Oximetry (%) 96 Oxygen Delivery Method Room Air Intake Visit Reasons: EP-cough, stuffy nose, throat itchy Intake Note: presents with productive cough, sinus congestion, itchy throat Patient Tobacco Use Status: Never used Tobacco Allergies ibuprofen (From Motrin) Allergy (Mild, Verified 07/10/25 10:51) Rash Do you need a note to return to daycare/school/sports/work: No HPI HPI Comments History of Present Illness Details History - The patient is a 64-year-old female pr esenting with upper respiratory infection symptoms. - Symptoms include stuffy nose, mild cou gh, and a fever of 99?F, starting the day before the visit. - No sore throat or ear pain reported, a nd she is eating and drinking normally. - Her is also experiencing simil ar symptoms. - She has not taken any medication for t hese symptoms yet. 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 - She denies CP, SOB, abd pain, n/v/d, e ar pain, or sore throat. Physical Exam General: Cooperative, healthy appearing, comfortable and no acute distress Orientation/consciousness: Patient oriented x3 Limitations: No limitations Head: Normal to inspection Ears: Hearing grossly normal bilaterally, external ears normal and TM's normal bilaterally Nose: Normal external nose present, normal nares present, and no nasal discharge present. Face and sinus: Sinuses nontender to palpation. Mouth: Normal oral and palatal mucosa present and moist mucous membranes noted. Throat: Tonsils normal. Uvula is midline. Posterior oropharynx with erythema and no exudates. Eyes: Appearance normal, both eyes and all related structures Neck: Normal visual inspection, full ROM. No lymphadenopathy noted. Respiratory: Clear to auscultation bilaterally. Normal respiratory effort, able to speak in complete sentences. No respiratory distress, not tachypneic, no tripod positioning and no use of accessory muscles. Cardiovascular: Regular rate and rhythm. Normal S1 and S2 Skin: No rashes or lesions noted Patient was informed and verbally consented to the use of an ambient scribe for clinic note documentation during this visit [facility] Medical History Carpal tunnel syndrome of right wrist History of carpal tunnel syndrome GERD (gastroesophageal reflux disease) Arthritis HTN (hypertension) History of palpitations Mitral valve regurgitation Hyperlipidemia Nephrolithiasis Wrist pain, right Diabetes Surgical History Hx of colonoscopy History of esophagogastroduodenoscopy (EGD) History of tubal ligation Social History Alcohol intake: never Patient Tobacco Use Status: Never used Tobacco Current occupational status: disabled 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 Review of Systems Const All systems reviewed & are unremarkable except as noted in HPI and below Physical Exam Vital Signs: Last Vital Signs Temp 99.2 F 07/10/25 10:50 Pulse 83 07/10/25 10:50 BP 144/80 H 07/10/25 10:50 Pulse Ox 96 07/10/25 10:50 Oxygen Delivery Method Room Air 07/10/25 10:50 BMI result Body Mass Index 35.7 Assessment & Plan Assessment & Plan (1) Congestion of nasal sinus: Code(s): R09.81 - Nasal congestion Plan Most likely URI vs viral illness vs covid vs flu vs RSV Plan - will send covid/flu/rsv swab - tylenol or motrin as needed - zyrtec d daily - flonase daily - drink lots of fluids - will call with the results - follow up with PCP Orders: Orders SARS-CoV2/FLU/RSV Today R09.89 - Other specified symptoms and signs involving the circulatory and respiratory systems Medications: New cetirizine-pseudoephedrine 5-120 mg ER 1 tab PO BID 14 tabs 0RF 7 days fluticasone propionate 50 mcg/actuation administer into each nostril 1 spray intranasal Q12H 16 grams 0RF Coding Level of Care Code Est Pt Level 3 (52953) Diagnoses Congestion of nasal sinus R09.81
--- OUTSIDE RECORDS SUMMARY | 2025-07-10 11:22 | XMS_ITS | Encounter Summary ---
Author Organization [employer] Address [address] [facility] 7t [place] [address] Care Team Providers Care Associate Professor Of Pathology Name Role Phone Lorene Lugo DO Primary Care Provider PuKeiko guzman PharmD Unavailable Reason for Visit * Reason Comments Med Refill Encounter Details Date Type Department Care Team (Late st Contact Info) Description 04/13/2024 Refill [facility] CHC MED & PEDS [address] [place], [place] [phone] Lorene Lugo DO [address] [place] [address] Social History Tobacco Use Types Packs/Day Years [...] documented as of this encounter Care Teams Associate Professor Of Pathology Relationship Specialty Start Date End Date Lorene Lugo DO [address] [place] [address] PCP - General Family Medicine 11/30/18 Puia, Keiko, PharmD [address] [place] [address] Pharmacist Internal Medicine 06/19/23 04/09/25 documented as of this encounter
--- OUTSIDE RECORDS SUMMARY | 2025-07-10 11:22 | XMS_ITS | Clinical Summary ---
Author Organization 175 [facility] Address [address] [place] [address] Phone Care Team Providers Care Public Health Program Manager Name Role Phone ChanLorene lockett Raul LOUIS Primary Care Provider [phone] Allergies Active Allergy Reactions Criticality Noted Date Comments Ibuprofen 04/12/2025 Medications lidocaine (LIDODERM) 5 % patchIndication s:Neuritis Apply 1 patch topically 1 (one) time each day. Remove & discard patch within 12 hours or as directed by . 30 each 2 07/11/20 25 Active Encounters Date Type Department Care Team Description 06/22/2025 Lab Requisition [facility] - Main Lab [address] [facility] [place] [address] Shant Kohler, PA Calculus of kidney 04/12/2025 9:15 AM EDT Consult Orthopedic Surgery - [place] [address] [facility] [address] [place] [address] Eleuterio Santiago, DPM Pain in [...] AM EDT Office Visit Orthopedic Surgery - [place] [address] [phone] Eleuterio Santiago, DPM [address] [address] Health Maintenance Due Date Last Done Comments [...] LAB CHEMISTRY METHOD 06/22/2025 6:46 PM EDT [facility] Blood Venous blood specimen / Unknown 06/22/2025 2:25 PM EDT 06/22/2025 6:13 PM EDT Shant ANN LAB BLOOD ORDERABLES Final Res ult [facility] ([facility]) [facility] [address] [place] [address], * Hemoglobin A1c (04/22/1999) Hemoglobin A1C 6.2 [...] ID:[id number] Group ID:SCO Type:Not on file Address: [place] [address] [place] [id number] MEDICAID - [place] Care Teams Public Health Program Manager Relationship Specialty Start Date End Date Lorene Lugo DO [address] [place] [address] PCP - General Family Medicine 11/21/24
== END 2025-07-10 12:52 | disposition home or self-care (01) ==
PROVIDERS: PCP Family Medicine; Visit Provider Physician Assistant Medical
DX: R09.81 Nasal congestion (principal)

== ENCOUNTER 2025-07-10 10:40 | Outpatient (REF) | payer OTHER, SELFPAY ==
[2025-07-10 14:20] LABS: Resp Syncy Virus RNA Qual PCR NEGATIVE (Negative); SARS COV2 PCR INHOUSE POSITIVE (Negative)
== END 2025-07-10 10:41 | disposition home or self-care (01) ==
LOC: HO.LNP 10:40
PROVIDERS: PCP Family Medicine; Visit Provider Physician Assistant Medical
DX: R09.81 Nasal congestion (principal); R09.89 Other specified symptoms and signs involving the circulatory and respiratory systems; R05.9 Cough, unspecified
CPT/HCPCS: 87637; 99212

== ENCOUNTER 2025-08-01 00:42 | Emergency (ER) | payer OTHER, SELFPAY ==
--- OUTSIDE RECORDS SUMMARY | 2024-02-02 06:00 | XMS_ITS ---
Author Organization [facility] Address [address] [place] [id number] Care Team Providers Care Air Antisubmarine Officer Name Role Phone Brittney James, Anna Marie Primary Care Provider Lauro Lock Jr REASON FOR VISIT constipation Encounters Encounter Location Date Provider Diagnosis [facility] Outpatient [address] [place], [place] [phone] 02/02/2024 Lauro Paredes Jr Plan Of Treatment No Information Progress Notes * MOHAN FUNEZIAM IDOB: 9 (64 yo F)Acc No.[id number]:02/02/2024 COLON WITH MAC Patient: ALEXANDRA SERRANO I Provider: Yaw Paredes MD :1960 A ge:63 Y S ex:Female Date:02/02/2024 Address:[address] [place], [place] [id number] Pcp:Anna Marie Lugo M.D. Subjective: * Chief Complaints: * 1 . Constipation. * Medical History: Objective: * Vitals: Assessment: Plan: * Treatment: * * The named appointment provid er may or may not be the originator of this progress note, and it is not deemed complete until electronically signed by the appointment provider. Sign off status: Pending * Provider: Yaw Paredes MD Date: 02/02/2024 Generated for Mariano knox/Radha/eTransmitting on: 08/01/2025 02:03 AM EDT
--- OUTSIDE RECORDS SUMMARY | 2024-02-23 07:30 | XMS_ITS ---
Author Organization [facility] Address [address] [place] [phone] Care Team Providers Care Filemaker Developer Name Role Phone Brittney James, Anna Marie Primary Care Provider Lauro Lock Jr REASON FOR VISIT constipation Encounters Encounter Location Date Provider Diagnosis [facility] Outpatient [address] [place], [place] [phone] 02/23/2024 Lauro Paredes Jr Plan Of Treatment No Information Progress Notes * ARMIN ALEXANDRA IDOB: 9 (64 yo F)Acc No.[id number]:02/23/2024 COLON WITH MAC Patient: ALEXANDRA SERRANO I Provider: Yaw Paredes MD :1960 A ge:63 Y S ex:Female Date:02/23/2024 Address:[address] [place], [place] [phone] Pcp:Anna Marie Lugo M.D. Subjective: * Chief Complaints: * 1 . Constipation. * Medical History: Objective: * Vitals: Assessment: Plan: * Treatment: * * The named appointment provid er may or may not be the originator of this progress note, and it is not deemed complete until electronically signed by the appointment provider. Sign off status: Pending * Provider: Yaw Paredes MD Date: 02/23/2024 Generated for Mariano knox/Radha/eTransmitting on: 0 08/01/2025 02:04 AM EDT
--- OUTSIDE RECORDS SUMMARY | 2024-04-22 05:10 | XMS_ITS ---
Author Organization [facility] Address [address] [place] [phone] Care Team Providers Care Steel Wheel Engraver Name Role Phone Brittney James, Anna Marie Primary Care Provider Lauro Lock Jr Unavailable REASON FOR VISIT POSITIVE COLOGUARD Encounters Encounter Location Date Provider Diagnosis [facility] Outpatient [address] [place] [id number] 04/22/2024 Lauro Paredes Jr Encounter for screening colonoscopy Z12.11 and Colon polyps K63.5 Assessments Encounter Date Diagnosis (ICD Code) Assessment Notes Treatment Notes Treatment Clinical Notes Section Notes 04/22/2024 Encounter for screening colonoscopy (ICD-10 - Z12.11) 04/22/2024 Colon polyps (ICD-10 - K63.5) Plan Of Treatment No Information Progress Notes * ALEXANDRA FUNEZ IDOB: 9 (64 yo F)Acc No.[id number]:04/22/2024 COLON WITH MAC Patient: ALEXANDRA SERRANO I Provider: Yaw Paredes MD :1960 A ge:63 Y S ex:Female Date:04/22/2024 Address:[address], [facility] [id number] Pcp:Anna Marie Lugo M.D. Subjective: * Chief Complaints: * 1 . POSITIVE COLOGUARD. * Medical History: Objective: * Vitals: Assessment: * Assessment: 1. E ncounter for screening colonoscopy - Z12.11 (Primary) 2 . C olon polyps - K63.5 Plan: * Treatment: * Procedure Codes: 4 5385 LESION REMOVAL COLONOSCOPY, [address]53[address] COLONOSCOPY AND BIOPSY, Modifiers: 59 * * The named appointment provid er may or may not be the originator of this progress note, and it is not deemed complete until electronically signed by the appointment provider. Sign off status: Pending * Provider: Yaw Paredes MD Date: 0 04/22/2024 Generated for Mariano knox/Radha/Annitting on: 0 08/01/2025 02:04 AM EDT
--- NOTE | ~2025-08-01 | XR_ITS ---
CLINICAL HISTORY: pain 1 view abdomen Comparison: None provided Findings: No pneumoperitoneum or pneumatosis. Mild fecal retention within the right colon. No abnormal calcifications. No acute fractures. IMPRESSION: Mild fecal retention. No bowel obstruction or free air. This document has been electronically signed by: David Connolly MD on 08/01/2025 05:09:37
[2025-08-01 00:49] VITALS: BP 175/74; PULSE 80; RESP 18; TEMP 37.1; O2SAT 110; BMI 35.9
--- OUTSIDE RECORDS SUMMARY | 2025-08-01 02:03 | XMS_ITS | Encounter Summary ---
Author Organization [employer] Address [address] [facility] 7t [place] [address] Care Team Providers Care Finished Garment Inspector Name Role Phone Lorene Lugo DO Primary Care Provider PuKeiko guzman PharmD Unavailable [phone] Reason for Visit * Reason Comments Med Refill Encounter Details Date Type Department Care Team (Late st Contact Info) Description 02/09/2025 Refill [facility] CHC MED & PEDS [address] [place], [place] [phone] Lorene Lugo DO [address] [place] [address] Healthcare maintenance Social History Tobacco Use Types [...] documented as of this encounter Care Teams Finished Garment Inspector Relationship Specialty Start Date End Date Lorene Lugo DO [address] [place] [address] PCP - General Family Medicine 11/30/18 Puia, Keiko, PharmD [address] [place] [address] Pharmacist Internal Medicine 06/19/23 04/09/25 documented as of this encounter
--- OUTSIDE RECORDS SUMMARY | 2025-08-01 02:03 | XMS_ITS | Clinical Summary ---
Author Organization 175 [facility] Address [address] [place] [address] Phone Care Team Providers Care Artificial Inseminator Name Role Phone ChanLorene lockett Raul LOUIS Primary Care Provider [phone] Allergies Active Allergy Reactions Criticality Noted Date Comments Ibuprofen 04/12/2025 Medications lidocaine (LIDODERM) 5 % patchIndication s:Neuritis Apply 1 patch topically 1 (one) time each day. Remove & discard patch within 12 hours or as directed by . 30 each 2 07/11/20 25 Encounters Date Type Department Care Team Description 07/20/2025 10:45 AM EDT Office Visit Orthopedic Surgery - [place] [address] [facility] [address] [place] [address] Eleuterio Santiago DPM Disorder of ligament of right foot (Primary Dx); Plantar fascial fibromatosis; Calcaneal spur, right foot; Neuritis; Diabetic mononeuropathy simplex ([facility] V24, [facility] V28) 06/22/2025 Lab Requisition [facility] - Main Lab [address] [facility] [place] [address] Shant Kohler PA Calculus of kidney from Last 3 Months Social History Tobacco [...] Concentration - - Weight 87.1 kg (192 lb 0.3 oz) 07/20/2025 10:43 AM EDT Height 152.4 cm (5') 07/20/2025 10:43 AM EDT Body Mass Index 37.5 07/20/2025 10:43 AM EDT Plan of Treatment Upcoming Encounters Date Type Department Care Team (Late st Contact Info) Description 08/31/2025 8:15 AM EDT Office Visit Orthopedic Surgery - [place] [address] [phone] Eleuterio Santiago, DPM [address] [address] Health Maintenance Due Date Last Done Comments Breast Cancer Screening 1958 Diabetes: Annual Foot Exam 1968 Diabetes: Annual Retina Eye Exam 1968 Hepatitis A Vaccines (1 of 2 - Risk 2-dose series) 1977 Falls Risk Assessment 11/22/2024 Hepatitis C Screening 11/22/2024 Medicare Annual Wellness Visit 11/22/2024 Osteoporosis Screening (Bone Density Screening) 11/22/2024 Social Influencers of Health Screening 11/22/2024 Depression Screening 11/30/2024 Diabetes: Annual Urine Albumin-Creatinine Ratio (uACR) 04/12/2025 COVID-19 Vaccine ( season) 2025 12/17/2021, 05/30/2021, 05/09/2021 Influenza Vaccine (#1) 2025 , 11/30/2023, 08/25/2023, Additional history exists Diabetes: Blood Sugar Control Test (HGBA1C) 10/07/2025 04/06/2025, 04/05/2025, 01/27/2025, Additional history exists Diabetes: Annual GFR (Glomerular Filtration Rate) 07/01/2026 07/01/2025, 04/06/2025, 03/27/2025, Additional history exists Hypertension/CHF/CAD Annual BMP Blood Test 07/01/2026 07/01/2025, 04/06/2025, 03/27/2025, Additional history exists Colorectal Cancer Screening: FIT-DNA [...] LAB CHEMISTRY METHOD 06/22/2025 6:46 PM EDT [facility] Blood Venous blood specimen / Unknown 06/22/2025 2:25 PM EDT 06/22/2025 6:13 PM EDT Shant ANN LAB BLOOD ORDERABLES Final Res ult [facility] ([facility]) [facility] [address] [place] [address], * Hemoglobin A1c (04/22/1999) Hemoglobin A1C 6.2 [...] ID:[id number] Group ID:SCO Type:Not on file Address: [place] [address] [address] [id number] MEDICAID - [place] Care Teams Artificial Inseminator Relationship Specialty Start Date End Date Lorene Lugo DO [address] [place] [address] PCP - General Family Medicine 11/21/24
--- OUTSIDE RECORDS SUMMARY | 2025-08-01 02:03 | XMS_ITS | Encounter Summary ---
Author Organization [employer] Address [address] [facility] [address] [place] [address] Care Team Providers Care Commodity Manager Name Role Phone Lorene Lugo DO Primary Care Provider Keiko Bowman PharmD Unavailable [phone] Reason for Visit * Reason Comments Med Refill Encounter Details Date Type Department Care Team ([facility] st Contact Info) Description 07/13/2024 Refill [facility] CH[facility] MED & PEDS [address] [place], [place] [phone] Ximena Florez FNP [address] [place], [place] [phone] Social History Tobacco Use Types Packs/Day Years [...] documented as of this encounter Care Teams Commodity Manager Relationship Specialty Start Date End Date Lorene Lugo DO [address] [place] [address] PCP - General Family Medicine 11/30/18 Puia, Keiko, PharmD [address] [place] [address] Pharmacist Internal Medicine 06/19/23 04/09/25 documented as of this encounter
--- OUTSIDE RECORDS SUMMARY | 2025-08-01 02:03 | XMS_ITS | Encounter Summary ---
Author Organization [employer] Address [address] [facility] 7[address] [place] [address] Care Team Providers Care Rail Car Painter/Sandblaster Name Role Phone Lorene Lugo DO Primary Care Provider PuKeiko guzman PharmD Unavailable [phone] Reason for Visit * Reason Comments Med Refill Encounter Details Date Type Department Care Team (Late st Contact Info) Description 04/13/[address] [facility] CHC MED & PEDS [address] [place], [place] [phone] Lorene Lugo DO [address] [place] [address] Social History Tobacco Use Types Packs/Day Years [...] documented as of this encounter Care Teams Rail Car Painter/Sandblaster Relationship Specialty Start Date End Date Lorene Lugo DO [address] [place] [address] PCP - General Family Medicine 11/30/18 Puia, Keiko, PharmD [address] [place] [address] Pharmacist Internal Medicine 06/19/23 04/09/25 documented as of this encounter
--- OUTSIDE RECORDS SUMMARY | 2025-08-01 02:03 | XMS_ITS | Patient Health Record ---
Author Organization [facility] Address [address] [place] [address] Care Team Providers Care Insurance Broker Name Role Phone Anna Marie Lugo M.D. Primary Care Provider Lauro Lock Jr Unavailable [phone] Allergies Allergen (clinical drug ingredient) Drug/Non Drug [...] Problem Status W/U Status Risk Notes Problem [id number] Constipation, unspecified constipation type (K59.00) Active confirmed Plan Of Treatment Future Test Test Name Order Date COLONOSCOPY 03/01/2014 COLONOSCOPY 12/28/2023 Insurance Providers Payer Name Payer Address Payer Phone Subscriber Number Group Number Insured Name Patient Relationship to Insured Coverage Start Date Coverage End Date [facility] [address] Attn Claims [place] [id number] ALEXANDRA FUNEZ Self - patient is the insured Medical (General) History Medical History History ICD Code Gastroesophageal reflux dise ase, EGD 07/07, no H. pylori or Davila's esophagus. Diabetes type 2 Nephrolithiasis Hyperlipidemia Mitral valve regurgitation Elevated body mass index Colonoscopy 12/14, hyperplastic polyps, t en-year followup Surgical History Surgery Date(Month/Year) tubal ligation
--- OUTSIDE RECORDS SUMMARY | 2025-08-01 02:03 | XMS_ITS | Encounter Summary ---
Author Organization [employer] Address 75 [facility] 7t [place] [address] Care Team Providers Care Freight Solicitor Name Role Phone Lorene Lugo DO Primary Care Provider PuKeiko guzman PharmD Unavailable Reason for Visit * Reason Comments Med Refill Encounter Details Date Type Department Care Team (Late st Contact Info) Description 12/28/2024 Refill [facility] MEDICINE [address] [place], [place] [phone] Lorene Lugo DO [address] [place], [place] [phone] Social History Tobacco Use Types Packs/Day Years Used Date Smoking Tobacco: Never Passive Smoke Exposure: Never Smokeless Tobacco: Never Alcohol Use Standard Drinks/Week Comments Never 0 (1 standard drink = 0.6 oz pur e alcohol) Depression Answer Date Recorded Patient Health Questionnaire-9 Score 0 08/25/2023 Housing Stability Answer Date Recorded What is your housing situation today? I have patricia esequiel 09/14/[address] you li [...] documented as of this encounter Care Teams Freight Solicitor Relationship Specialty Start Date End Date Lorene Lugo DO [address] [place] [address] PCP - General Family Medicine 11/30/18 Puia, Keiko, PharmD [address] [place] [address] Pharmacist Internal Medicine 06/19/23 04/09/25 documented as of this encounter
--- OUTSIDE RECORDS SUMMARY | 2025-08-01 02:03 | XMS_ITS | Encounter Summary ---
Author Organization [employer] Address 75 [facility] 7t [place] [address] Care Team Providers Care Submarine Advisory Team Watch Officer Name Role Phone Lorene Lugo DO Primary Care Provider [phone] PuKeiko guzman PharmD Unavailable [phone] Reason for Visit * Reason Comments Med Refill Encounter Details Date Type Department Care Team (Late st Contact Info) Description 09/24/[address] [facility] CHC MED & PEDS [address] [place], [place] [phone] Lorene Lugo DO [address] [place] [address] Social History Tobacco Use Types Packs/Day Years [...] documented as of this encounter Care Teams Submarine Advisory Team Watch Officer Relationship Specialty Start Date End Date Lorene Lugo DO [address] [place] [address] PCP - General Family Medicine 11/30/18 Puia, Keiko, PharmD [address] [place] [address] Pharmacist Internal Medicine 06/19/23 04/09/25 documented as of this encounter
--- OUTSIDE RECORDS SUMMARY | 2025-08-01 02:03 | XMS_ITS | Encounter Summary ---
Author Organization [employer] Address 75 [facility] 7t [place] [address] Care Team Providers Care Cardiology Physician Name Role Phone Lorene Lugo DO Primary Care Provider Keiko Bowman PharmD Unavailable [phone] Reason for Visit * Reason Comments Med Refill Encounter Details Date Type Department Care Team ([facility] st Contact Info) Description 08/14/2024 Refill [facility] CHC MED & PEDS [address] [place], [place] [phone] Ximena Florez FNP [address] [place], [place] [phone] Social History Tobacco Use Types Packs/Day Years [...] documented as of this encounter Care Teams Cardiology Physician Relationship Specialty Start Date End Date Lorene Lugo DO 230 [place] [address] PCP - General Family Medicine 11/30/18 Puia, Keiko, PharmD [address] [place] [address] Pharmacist Internal Medicine 06/19/23 04/09/25 documented as of this encounter
--- OUTSIDE RECORDS SUMMARY | 2025-08-01 02:03 | XMS_ITS | Encounter Summary ---
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 This request for 2.5 mg was sent in error. No action required. documented in this encounter Plan of Treatment Not on file documented as of this encounter Goals Goal Patient Goal Type Associated Problems Recent Progress Patient-Stated? Author Blood Pressure < 140/90 Blood Pressure 144/77(2024 11:35 AM EDT) No Alo Freitas PharmD Record [...] documented as of this encounter Care Teams Heating Equipment Installer Relationship Specialty Start Date End Date Lorene Lugo DO [address] [place] [address] PCP - General Family Medicine 11/30/18 Keiko Bowman PharmD [address] [place] [address] Pharmacist Internal Medicine 06/19/23 04/09/25 documented as of this encounter
--- OUTSIDE RECORDS SUMMARY | 2025-08-01 02:03 | XMS_ITS | Encounter Summary ---
Author Organization [employer] Address 75 [facility] 7t [place] [address] Care Team Providers Care Seafood Team Member Name Role Phone Lorene Lugo DO Primary Care Provider Keiko Bowman PharmD Unavailable [phone] Encounter Details Date Type Department Care Team (Late st Contact Info) Description 12/27/2024 Orders Only [facility] [address] [place] [address] Provider, MD Belinda Social History Tobacco Use [...] Pressure 144/77(2024 11:35 AM EDT) No Alo Freitas, PharmD Record [...] documented as of this encounter Care Teams Seafood Team Member Relationship Specialty Start Date End Date Lorene Lugo DO [address] [place] [address] PCP - General Family Medicine 11/30/18 Keiko Bowman, Sumit [address] [place] [phone] Pharmacist Internal Medicine 06/19/23 04/09/25 documented as of this encounter
--- OUTSIDE RECORDS SUMMARY | 2025-08-01 02:03 | XMS_ITS | Encounter Summary ---
Author Organization [facility] Address [address] [place] [address] Care Team Providers Care Brand Engineer Name Role Phone Lorene Lugo DO Primary Care Provider [phone] Encounter Details Date Type Department Care Team (Late Contact Info) Description 06/22/2025 Lab Requisition [facility] - Main Lab [address] [facility] [place] [phone] Shant Kohler, SETH [address] [place] [phone] Calculus of kidney Social History Tobacco Use Types Packs/Day Years Used Date Smoking Tobacco: Never Assessed Comments Unknown Sex and Gender Information Value Date Recorded Sex Assigned at Not on file Legal Sex Female 10:48 PM EST Gender Identity Not on file Sexual Orientation Not on file documented as of this encounter Plan of Treatment Upcoming Encounters Date Type Department Care Team (Late Contact Info) Description 08/31/2025 8:15 AM EDT Office Visit Orthopedic Surgery - [place] [address] [phone] Eleuterio Santiago, DPM [address] [address] documented as of this encounter Procedures Procedure Name Priority Date/Time Associated Diagnosis Comments PARATHYROID HORMONE INTACT Routine 06/22/2025 2:25 PM EDT Calculus of kidney documented in this encounter Results * Parathyroid hormone intact (06/22/2025 2:25 PM EDT) PTH 50.1 18.5 - 88.0 pcg/mL LAB CHEMISTRY METHOD 06/22/2025 6:46 PM EDT [facility] Blood Venous blood specimen / Unknown 06/22/2025 2:25 PM EDT 06/22/2025 6:13 PM EDT us Shant R Edita PA LAB BLOOD ORDERABLES Final Res ult [facility] [address] [place] [address], documented in this encounter Visit Diagnoses Diagnosis Calculus of kidney documented in this encounter Care Teams Brand Engineer Relationship Specialty Start Date End Date Lorene Lugo DO [address] [place] [address] PCP - General Family Medicine 11/21/24 documented as of this encounter
--- OUTSIDE RECORDS SUMMARY | 2025-08-01 02:03 | XMS_ITS | Encounter Summary ---
Author Organization [employer] Address 75 [facility] 7t [place] [address] Care Team Providers Care Peach Grower Name Role Phone Lorene Lugo DO Primary Care Provider PuKeiko guzman PharmD Unavailable Reason for Visit * Reason Onset Date Comments Request For Order(s) 02/22/2024 Encounter Details Date Type Department Care Team ([facility] st Contact Info) Description 02/22/2024 Telephone [facility] MEDICINE [address] [place], [place] [phone] Lorene Lugo DO [address] [place] [address] Request For Order(s) Social History Tobacco Use [...] 3:57 PM EDT TC placed to pt [phone] in regards to below message. Pt reports she has already called [facility] to cancel the colonoscopy. Pt informed [...] not feeling well. Please contact pt at [phone] documented in this encounter Plan of Treatment [...] 6.2( 10:19 AM EDT) No Alo Freitas, PharmDillon Record your blood sugar as directed Result Component On track( 023 9:44 AM EDT) No Keiko Bowman PharmDillon documented as of this encounter Visit Diagnoses Not on filedocumented in this encounter Additional Health Concerns Assessment Noted Time PHQ-9 Depression Total Score: 0 08/25/20 9:41 AM EDT documented as of this encounter Care Teams Peach Grower Relationship Specialty Start Date End Date Lorene Lugo DO [address] [place] [address] PCP - General Family Medicine 11/30/18 Keiko Bowman PharmD [address] [place] [address] Pharmacist Internal Medicine 06/19/23 04/09/25 documented as of this encounter
--- OUTSIDE RECORDS SUMMARY | 2025-08-01 02:03 | XMS_ITS | Encounter Summary ---
Author Organization [employer] Address 75 [facility] 7t [place] [address] Care Team Providers Care Health Sciences Manager Name Role Phone Lorene Lugo DO Primary Care Provider PuKeiko guzman PharmD Unavailable Reason for Visit * Reason Comments Med Refill Encounter Details Date Type Department Care Team (Late st Contact Info) Description 03/30/2025 Refill [facility] MEDICINE [address] [place], [place] [phone] Lorene Lugo DO [address] [place], [place] [phone] Social History Tobacco Use Types Packs/Day Years [...] documented as of this encounter Care Teams Health Sciences Manager Relationship Specialty Start Date End Date Lorene Lugo DO [address] [place] [address] PCP - General Family Medicine 11/30/18 Puia, Keiko, PharmD [address] [place] [address] Pharmacist Internal Medicine 06/19/23 04/09/25 documented as of this encounter
--- OUTSIDE RECORDS SUMMARY | 2025-08-01 02:03 | XMS_ITS | Encounter Summary ---
Author Organization [employer] Address 75 [facility] 7t [place] [address] Care Team Providers Care Aircraft Armorer Name Role Phone Lorene Lugo DO Primary Care Provider [phone] Keiko Bowman PharmD Unavailable [phone] Reason for Visit * Reason Comments Med Refill Encounter Details Date Type Department Care Team ([facility] st Contact Info) Description 08/12/2024 Refill [facility] CHC MED & PEDS [address] [place], [place] [phone] Ximena Florez FNP [address] [place], [place] [phone] Social History Tobacco Use Types Packs/Day Years [...] documented as of this encounter Care Teams Aircraft Armorer Relationship Specialty Start Date End Date Lorene Lugo DO [address] [place] [address] PCP - General Family Medicine 11/30/18 Puia, Keiko, PharmD [address] [place] [address] Pharmacist Internal Medicine 06/19/23 04/09/25 documented as of this encounter
--- OUTSIDE RECORDS SUMMARY | 2025-08-01 02:04 | XMS_ITS | Encounter Summary ---
Author Organization [employer] Address [address] [place] [address] 7t [place] [address] Care Team Providers Care Home Health Lvn Name Role Phone Lorene Lugo DO Primary Care Provider Delloghenrietta Alo PharmD Unavailable Unavail able Keiko Bowman PharmD Unavailable [phone] Encounter Details Date Type Department Care Team (Late st Contact Info) Description 12/30/2022 Telephone [facility] MEDICINE [address] [place], [place] [phone] Lorene Lugo DO [address] [place], [place] [phone] Social History Tobacco Use Types Packs/Day Years [...] on filedocumented in this encounter Care Teams Home Health Lvn Relationship Specialty Start Date End Date Lorene Lugo DO [address] [place], [place] [phone] PCP - General Family Medicine 11/30/18 Alo Freitas, PharmD [address] [place] [address] Pharmacist Internal Medicine 02/11/23 06/18/23 Keiko Bowman, Sumit [address] [place] [address] Pharmacist Internal Medicine 06/19/23 04/09/25 documented as of this encounter
--- OUTSIDE RECORDS SUMMARY | 2025-08-01 02:04 | XMS_ITS | Encounter Summary ---
Author Organization [employer] Address [address] [place] [address] 7t [place] [address] Care Team Providers Care Business Integration Analyst Name Role Phone Lorene Lugo DO Primary Care Provider [phone] Dellogono, Alo PharmD Unavailable Unavail able Pumegan Keiko PharmD Unavailable [phone] Encounter Details Date Type Department Care Team (Late st Contact Info) Description 01/06/2023 Orders Only [facility] CHC MED & PEDS [address] [place] [address] Lorene Hollingsworth LPN Social History Tobacco Use [...] EDT 08/25/2023 6:40 PM EDT Comment:UACC Narrative [facility] - 08/27/2023 11:24 AM EDT Urine Culture Report Result Urine Culture 10,000 to 50,000 cfu/ml Urine Culture Mixed bacterial meenu characteristic of Urine Culture urogenital contamination. Specimen Source: Urine clean catch Lorene Lugo DO LAB MICROBIOLOGY - GENERAL O RDERABLES Final Result Performing Organization Address [facility] Co de Phone Number [facility] [address] [place] [address] [phone] * (ABNORMAL) [facility] Covid-19 Ag (07/07/2023 1:04 PM EDT) [facility] Covid-19 Ag Positive (A) Negative [facility] Comment:Result reported to [facility].All test results must be correlated with clinical findings.This test has been authorized by the FDA under an EmergencyUse Authorization(EUA)for use by authorized laboratories.Testing performed on the [employer] Covid-19 Ag Card which eva lateral flow immunoassay. The test does not differentiatebetween the SARS-CoV and SARS-COV-2. 07/07/2023 1:04 PM EDT 07/07/2023 1:34 PM EDT [facility] Exter nal Provider LAB BODY FLUIDS AND STOOLS ORDERABLES Final Result Performing Organization Address [facility] de Phone Number [facility] [address] [place] [address] [phone] documented in this encounter Visit Diagnoses Not on filedocumented in this encounter Care Teams Business Integration Analyst Relationship Specialty Start Date End Date Lorene Lugo DO [address] [place] [address] PCP - General Family Medicine 11/30/18 Alo Freitas, PharmD [address] [place] [address] Pharmacist Internal Medicine 02/11/23 06/18/23 Keiko Bowman, Sumit [address] [place] [address] Pharmacist Internal Medicine 06/19/23 04/09/25 documented as of this encounter
--- OUTSIDE RECORDS SUMMARY | 2025-08-01 02:04 | XMS_ITS | Encounter Summary ---
Author Organization [employer] Address 75 [facility] 7t [place] [address] Care Team Providers Care Medical Affairs Manager Name Role Phone Lorene Lugo DO Primary Care Provider [phone] Keiko Bowman PharmD Unavailable [phone] Reason for Visit * Reason Onset Date Comments Appointment Request 02/01/2024 Encounter Details Date Type Department Care Team (Late st Contact Info) Description 02/01/2024 Telephone [facility] MEDICINE [address] [place], [place] [phone] Lorene Lugo DO [address] [place], [place] [phone] Appointment Request Social History Tobacco Use Types [...] a DM follow up appt with PCP. Polysomnographic Technician verify notes from last visit on 08/25/2023 pcp put appt should be around 12/25 but we can't schedule [place] appts. Polysomnographic Technician advised someone will be calling to schedule [...] documented as of this encounter Care Teams Medical Affairs Manager Relationship Specialty Start Date End Date Lorene Lugo DO [address] [place] [address] PCP - General Family Medicine 11/30/18 Keiko Bowman PharmD [address] [place] [address] Pharmacist Internal Medicine 06/19/23 04/09/25 documented as of this encounter
--- OUTSIDE RECORDS SUMMARY | 2025-08-01 02:04 | XMS_ITS | Clinical Summary ---
Author Organization [employer] Address [address] [facility] [address] [place] [address] Care Team Providers Care Burglar Alarm Inspector Name Role Phone Lorene Lugo DO Primary Care Provider [phone] Allergies Active Allergy Reactions Criticality Noted Date Comments Goyo Inhibitors Cough Ibuprofen Rash Medium Other reaction(s): rash Other Reaction(s): Unknown Medications glucose blood (FREESTYLE LITE) test stripIndications:Typ e 2 diabetes mellitus with microalbuminuria, without long-term current use of insulin ([facility]) USE TO TEST BLOOD SUGAR TWICE DAILY 100 strip 11 08/08/20 24 Active acetaminophen (Tylenol 8 Hour) 650 MG ER tablet Take 1 tablet (650 mg) by mouth every 8 (eight) hours if needed for mild pain. Do not crush, chew, or split. 60 tablet 2 10/21/20 24 025 Active Alcohol Swabs (Alcohol Prep) 70 % pads USE TWICE DAILY 100 each 11 12/29/19 25 Active docusate sodium (Colace) 100 MG capsule TAKE 1 CAPSULE(100 MG) BY MOUTH TWICE DAILY 180 capsule 3 01/04/20 25 Active sertraline (Zoloft) 50 MG tablet Take 1 tablet (50 mg) by mouth Once per day. 90 tablet 3 01/11/20 25 Active gabapentin (Neurontin) 100 MG capsule Take 1 capsule (100 mg) by mouth at bedtime. 30 capsule 3 01/27/20 25 026 Active Multiple Vitamins-Minerals (Multi For Her 50+) tabletIndications:He althcare maintenance TAKE 1 TABLET BY MOUTH EVERY MORNING 90 tablet 3 02/10/20 25 Active FreeStyle lancetsIndications:T ype 2 diabetes mellitus with microalbuminuria, without long-term current use of insulin ([facility]) USE TO TEST BLOOD SUGAR TWICE DAILY 200 each 02/29/20 25 Active famotidine (Pepcid) 20 MG tablet Take 1 tablet (20 mg) by mouth if needed at bedtime for heartburn. 30 tablet 04/05/20 25 026 Active sucralfate (Carafate) 1 g tablet Take 1 tablet by mouth 2 times daily. 03/30/20 25 Active aspirin (Aspirin Low Dose) 81 MG EC tabletIndications:Ty pe 2 diabetes mellitus with microalbuminuria, without long-term current use of insulin ([facility]),Other hyperlipidemia Take 1 tablet (81 mg) by mouth in the morning. 90 tablet 04/10/20 25 Active atorvastatin (Lipitor) 80 MG tabletIndications:Ty pe 2 diabetes mellitus with microalbuminuria, without long-term current use of insulin ([facility]),Other hyperlipidemia Take 1 tablet (80 mg) by mouth Once per day. 90 tablet 04/10/20 25 Active losartan (Cozaar) 50 MG tabletIndications:Ty pe 2 diabetes mellitus with microalbuminuria, without long-term current use of insulin ([facility]),Essential hypertension Take 1 tablet (50 mg) by mouth Once daily. 90 tablet 04/10/20 25 Active Tirzepatide (Mounjaro) 5 MG/0.5ML solution auto-injectorIndicat ions:Type 2 diabetes mellitus with microalbuminuria, without long-term current use of insulin ([facility]) Inject 5 mg under the skin 1 (one) time per week. 2 mL 04/10/20 25 Active Diclofenac Sodium 1 % gelIndications:Chron ic pain of left knee Apply topically to affected areas twice daily 150 g 04/15/20 25 Active cholecalciferol (Vitamin D-3) 50 MCG (2000 UT) tablet TAKE 1 TABLET BY MOUTH EVERY DAY 90 tablet 1 05/03/20 25 Active polyethylene glycol, PEG, 3350 (Glycolax) 17 GM/SCOOP powderIndications:Co nstipation, unspecified constipation type DISSOLVE AND MIX 17 GM INTO WATER. DRINK ONCE DAILY NEEDED FOR CONSTIPATION 238 g 5 05/29/20 25 Active omeprazole (PriLOSEC) [address] capsuleIndications:C hronic gastroesophageal reflux disease TAKE 1 CAPSULE BY MOUTH TWICE DAILY BEFORE BREAKFAST AND DINNER 180 capsule 06/15/20 25 Active cetirizine (ZyrTEC) 10 MG tablet TAKE 1 TABLET BY MOUTH EVERY MORNING 90 tablet 1 06/28/20 25 Active Active Problems Problem Noted Date Diagnosed Date [...] Encounters Date Type Department Care Team Description 07/10/2025 Orders Only GENERIC EXTERNAL DATA DEPARTMENT Provider, Generic External Data 07/01/2025 Orders Only GENERIC EXTERNAL DATA DEPARTMENT Provider, Generic External Data 06/28/2025 Refill [facility] MEDICINE [address] [place] [address] Keiko Bowman PharmD Type 2 diabetes mellitus with microalbuminuria, without long-term current use of insulin ([facility]); Essential hypertension 06/28/2025 Refill [facility] MEDICINE [address] [place] [address] Lorene Lugo DO 06/14/2025 Refill [facility] [address] [place] [address] Lorene Lugo DO Chronic gastroesophageal reflux disease 05/27/2025 Refill [facility] MEDICINE [address] [place] [address] Lorene Lugo DO Constipation, unspecified constipation type 05/02/2025 Refill [facility] [address] [place], [place] [phone] Lorene Lugo DO from Last 3 Months Immunizations Immunization Administration [...] Sign Reading Time Taken Comments Blood Pressure 144/77 04/15/2025 11:35 AM EDT Pulse 73 04/15/2025 11:35 AM EDT Temperature 36.9 C (98.4 F) 04/15/2025 11:35 AM EDT Respiratory Rate 20 04/15/2025 11:35 AM EDT Oxygen Saturation 95% 04/15/2025 11:35 AM EDT Inhaled Oxygen Concentration - - Weight 87.1 kg (192 lb) 04/15/2025 11:35 AM EDT Height 152.4 cm (5') 04/05/2025 11:52 AM EDT Body Mass Index 37.5 04/05/2025 11:52 AM EDT Plan of Treatment Health Maintenance Due Date Last Done Comments CT Colonography 1960 FIT 1958 FOBT 1960 Sigmoidoscopy 1960 Diabetes: Foot Exam 1968 Eye Exam 1968 Hepatitis A Vaccines (1 of 2 - Risk 2-dose series) 1977 COVID-19 Vaccine ( season) 2024 12/17/2021, 05/30/2021, 05/09/2021 Depression Screening 08/25/2024 08/25/2023, 08/25/20 23 SDOH Screening 08/25/2024 08/25/2023 Colonoscopy 12/13/2024 12/13/2014 Influenza Vaccine (#1) 2025 , 11/30/2023, 08/25/2023, Additional history exists Mammogram 09/15/2025 09/15/2024, 08/30, 09/08/2023, Additional history exists Diabetes: Hemoglobin A1C 10/07/2025 025, 04/05/2025, 01/27/2025, Additional history exists Alcohol/Substance Use Screening 04/05/2026 04/05/2025 Lipid Panel 04/06/2026 04/06/2025, 10/01, 11/02/2023, Additional history exists Tobacco Screening 04/17/2026 04/17/2025 Colorectal Cancer Screening 03/04/2027 FIT DNA/Cologuard 03/04/2027 [...] 9:44 AM EDT) No Keiko Bowman, PharmD Procedures Procedure Name Priority Date/Time Associated Diagnosis Comments SARS COV2/INFLUENZA A/B AND RSV RNA QL NAAT Routine 07/10/2025 10:40 AM EDT URINALYSIS, COMPLETE, WITH REFLEX TO CULTURE Routine 07/01/2025 1:33 AM EDT CBC WITH AUTO DIFFERENTIAL Routine 07/01/2025 12:46 AM EDT LIPASE Routine 07/01/2025 12:46 AM EDT COMPREHENSIVE METABOLIC PANEL Routine 07/01/2025 12:46 AM EDT SARS COV2/INFLUENZA A/B AND RSV RNA QL NAAT Routine 07/01/2025 12:46 AM EDT CULTURE, URINE, ROUTINE Routine 07/01/2025 12:00 AM EDT HEMOGLOBIN A1C Routine 04/06/2025 10:19 AM EDT [...] BILATERAL Routine 09/15/2024 9:52 AM EDT LAB COLOGUARD COLON CANCER SCREEN Routine 03/04/2024 3:00 PM [...] Relevant to Health Maintenance Results * (ABNORMAL) SARS-CoV-2 RNA, Influenza A/B, and RSV RNA, Ql NAAT (07/10/2025 10:40 AM EDT) Only the most recent of2 resultswithin the time period is included. Influenza A PCR NEGATIVE Negative [facility] Influenza B PCR NEGATIVE Negative [facility] Resp Syncy Virus RNA Qual PCR NEGATIVE Negative [facility] SARS COV2 PCR POSITIVE(A) Negative [facility] Comment:All test results mus t [...] use by authorized laboratories.Testing performed on the [employer] GeneXpert utilizingreal-time RT-PCR.All SARS CoV2 and positive influenza A/B results arereported to [facility]. 07/10/2025 10:4 0 AM EDT 07/10/2025 1:26 PM EDT us Generic External Data Provider LAB MICROBIOLOGY - GENERAL ORDERABLES Final Result [facility] [address] [place] [phone] * (ABNORMAL) Urinalysis, Complete, with Reflex to Culture (07/01/2025 1:33 AM EDT) Color Urine Yellow [facility] Appearance Urine Clear [facility] PH 6.5 5.0 - 9.0 [facility] Glucose Urine UA Negative Negative mg/dL [facility] Urine Blood Negative Negative [facility] Specific [place] - Urine 1.010 1.005 - 1.025 [facility] Urine Protein Negative Neg-Trace mg/dL [facility] Urine Ketones Negative Negative mg/dL [facility] Nitrite Urine Negative Negative [facility] Leukocyte Esterase Urine Small (1+)(A) Negative [facility] RBC Urine 0-2 0 - 2 /HPF [facility] Urine WBC 6-10(A) 0 - 5 /HPF [facility] Urine Squamous Epithelial Cell 0-2 0 - 2 /HPF [facility] Urine Bacteria None Seen None Seen [facility] Hyaline Casts, Urine 0-2 0 - 2 /LPF [facility] 07/01/2025 1:33 AM EDT 07/01/2025 1:36 AM EDT Narrative [facility] - 07/01/2025 1:42 AM EDT [id number], Clean Catch us Generic External Data Provider LAB URINE ORDERAB LES Final Result [facility] [address] [place] [phone] * (ABNORMAL) CBC auto differential (07/01/2025 12:46 AM EDT) White Blood Count 9.5 4.8 - 10.8 X10*3/uL [facility] Red Blood Count 4.21 4.20 - 5.50 X10*6/uL [facility] Hemoglobin 11.9(L) 12.0 - 16.0 g/dl [facility] Hematocrit 35.6(L) 37.0 - 47.0 % [facility] Mean Corpuscular Volume 84.6 80.0 - 98.0 fL [facility] Mean Corpuscular Hemoglobin 28.3 27.0 - 33.0 pg [facility] Mean Corpuscular HGB Conc 33.4 31.0 - 35.0 g/dl [facility] Red Cell Distribution Width 13.4 11.0 - 16.0 % [facility] Platelet Count 220 160 - 400 X10*3/uL [facility] Mean Platelet Volume 10.5 9.4 - 12.3 fL [facility] Neutrophils Percent Auto 65.1 45 - 73 % [facility] Imm Gran Pct Auto 0.3 0.0 - 0.4 % [facility] Lymphocytes Percent Auto 24.4 20 - 40 % [facility] Monocytes Percent Auto 9.0 2 - 11 % [facility] Eosinophils Percent Auto 0.9 0 - 4 % [facility] Basophils Percent Auto 0.3 0 - 2 % [facility] NRBC Pct Auto 0.0 0.0 - 0.2 /100WBC [facility] Neutrophils Absolute Auto 6.2 2.0 - 8.3 x10*3/uL [facility] Imm Gran Abs Auto 0.03 0.00 - 0.03 X10*3/uL [facility] Lymphocytes Absolute Auto 2.3 1.2 - 4.9 X10*3/uL [facility] Monocytes Absolute Auto 0.9 0.1 - 1.2 X10*3/uL [facility] Eosinophils Absolute Auto 0.1 0.0 - 0.4 X10*3/uL [facility] Basophils Absolute Auto 0.0 0.0 - 0.2 X10*3/uL [facility] NRBC Abs Auto 0.000 0.0 - 0.012 X10*3/uL [facility] 07/01/2025 12:4 6 AM EDT 07/01/2025 12:52 AM EDT us Generic External Data Provider LAB BLOOD ORDERAB LES Final Result [facility] [address] [place] [phone] * Lipase (07/01/2025 12:46 AM EDT) Lipase 37 8 - 78 U/L [facility] 07/01/2025 12:4 6 AM EDT 07/01/2025 12:52 AM EDT us Generic External Data Provider LAB BLOOD ORDERAB LES Final Result [facility] [address] [place] [phone] * (ABNORMAL) Comprehensive Metabolic Panel (07/01/2025 12:46 AM EDT) Sodium 141 135 - 145 mmol/L [facility] Potassium 4.0 3.3 - 5.1 mmol/L [facility] Chloride 104 96 - 108 mmol/L [facility] Carbon Dioxide 29 22 - 29 mmol/L [facility] Anion Gap 12 12 - 20 [facility] Urea Nitrogen (BUN) 15 9 - 16 mg/dL [facility] Creatinine, Serum 0.62 0.5 - 1.4 mg/dL [facility] Creatinine Clr Calc Pharmacy 86.4 [facility] Comment:Provided height and weight: 152.4 cm,85.2 kg.eGFR (calculated from the MDRD study equation) and eCrCl(calculated from the Cockcroft-Gault equation) are based ondifferent parameters and may not yield comparable results.If eCrCl result is absurd, please check patient'sheight/weight. Estimated Glomerular Filt Rate >60 [facility] Comment:Chronic Kidney Disea se: Estimated GFR < 60 mL/min/1.17u6Lwotjo Kidney Disease: Estimated GFR < 15 mL/min/1.73m2 Glucose 217(H) 60 - 115 mg/dL [facility] Calcium 9.4 8.4 - 10.2 mg/dL [facility] Bilirubin, Total 0.3 0.0 - 1.0 mg/dL [facility] Aspartate Amino Transferase 23 5 - 31 U/L [facility] Alanine Aminotransferase 27 0 - 31 U/L [facility] Total Protein 7.0 6.5 - 8.0 g/dL [facility] Albumin Level 4.1 3.5 - 5.0 g/dL [facility] Alkaline Phosphatase 89 39 - 117 U/L [facility] 07/01/2025 12:4 6 AM EDT 07/01/2025 12:52 AM EDT Generic External Data Provider LAB BLOOD ORDERAB LES Final Result Performing Organization Address City/[facility]/ZIP Co de Phone Number [facility] [address] [place] [phone] * Culture, Urine, Routine (07/01/2025 12:00 AM EDT) Urine Urine specimen obtained by clean catch procedure / Unknown 07/01/2025 07/01/2025 Comment:UACC Narrative [facility] - 07/02/2025 10:19 AM EDT Urine Culture Report Result Urine Culture < 10,000 cfu/ml Specimen Source: Urine clean catch Generic External Data Provider LAB MICROBIOLOGY - GENERAL ORDERABLES Final Result Performing Organization Address [facility] Co de Phone Number [facility] [address] [place] [phone] * (ABNORMAL) Hemoglobin A1c (04/06/2025 10:19 AM EDT) Hemoglobin A1c 6.2(H) <6.0 % [facility] Comment:Hemoglobin A1C Refer ence Range Adults: 4.8 - 6.0 % Non diabetic: < 6.0 % Goal: < 7.0 %Additional Action Suggested: > 8.0 %Note: Hemoglobin A1c results are invalid for patients with abnormal amounts of HbF. Blood transfusions may impact the HbA1c concentration in the patient sample. Estimated Average Glucose 131 mg/dL [facility] Comment:eAG = Estimated ave rage glucose which is %A1C expressed asaverage glucose, using the formula of the W0M-ObychreCblxbit Glucose study (ADAG), Diabetes Care, Vol.31,#8,Jun. 2007 Blood Venous blood specimen / Unknown 04/06/2025 10:19 AM EDT 04/06/2025 11:05 AM EDT Lorene Brittney DO LAB BLOOD ORDERABLES Final R esult Performing Organization Address City/[facility]/ZIP Co de Phone Number [facility] [address] [place] [phone] * (ABNORMAL) Lipid Panel, Standard (04/06/2025 10:19 AM EDT) Triglycerides 74 <150 mg/dL [facility] Comment:Desirable Triglyceri de: less than 150 mg/dLBorderline High Triglyceride 150-199 mg/dLHigh Triglyceride: 200-499 mg/dLVery High Triglyceride: greater than or equal to 5OO mg/dL Cholesterol 115 <200 mg/dL [facility] Comment:Desirable Cholestero l: less than 200 mg/dLBorderline High Cholesterol: 200-239 mg/dLHigh Cholesterol: greater than 239 mg/dL LDL Cholesterol Calculated 61 <100 mg/dL [facility] Comment:Desirable LDL: less than 100 mg/dLNear Optimal/Above Optimal LDL: 110- 129 mg/dLBorderline High LDL: 130-159 mg/dLHigh LDL: 160-189 mg/dLVery High LDL: greater than or equal to 190 mg/dL HDL Cholesterol 40(L) >40 mg/dL [facility] Comment:Desirable HDL: great er than 40 mg/dL Note: This HDL assay may give artificially low results in patients with liver disease. Blood Venous blood specimen / Unknown 04/06/2025 10:19 AM EDT 04/06/2025 11:05 AM EDT Lorene Lugo DO LAB BLOOD ORDERABLES Final R esult Performing Organization Address City/[facility]/ZIP Co de Phone Number [facility] [address] [place] [phone] * BI Mammogram Screening Tomosynthesis Bilateral (09/15/2024 9:52 AM EDT) Anatomical Region Laterality Modality Breast Bilateral Mammography 09/15/2024 9:52 AM EDT Narrative 09/27/2024 12:30 PM EDT [facility] [address] [place], [place] [address] Mammography Report Signed with Addenda Patient: Cheryl Samson I MR#: [id number] : 1960 Acct:[id number] Age/Sex: 63 / F ADM Date: 09/15/24 Loc: HO.MAMMO Attending Dr: Lorene Lugo DO Ordering Physician: Lorene Lugo DO Results: 1N egative Date of Service: 09/15/24 Follow Up: 1 Year From [facility] Mammogram Procedure(s): MM tomosynthesis screening BI Accession Number(s): [id number] cc: Lorene Lugo DO ADDENDUM ADDENDUM #1 [...] DO Addendum Signed By: <Electronically signed by Audrey Ambrosio DO in OV> 09/30/24 1049 Addendum Cosigned By: [...] 09/27/24 1227 DD/ 1 TD/TT: 09/15/24 1010 Information Resources Director: Procedure Note Donotuseinterpreter, Image - 09/30/2024 [facility] [address] [place], [place] [address] Mammography Report Signed with Addenda Patient: Cheryl Samson IMR#: [id number] : 9Acct:[id number] Age/Sex: 63 / FADM Date: 09/15/24 Loc: HO.MAMMO Attending Dr: Lorene Lugo DO Ordering Physician: Lorene Lugoults: 1N egative Date of Service: 09/15/24Follow Up: 1 Year From Orig ina Mammogram Procedure(s): MM tomosynthesis screening BI Accession Number(s): [id number] cc: Lorene Lugo DO ADDENDUM ADDENDUM #1 [...] in OV> 09/27/24 1227 DD/ 1 TD/TT: 09/15/241009 Information Resources Director: Lorene Lugo DO IMG BI PROCEDURES Edited Res ult - Final * (ABNORMAL) Cologuard?? colon cancer screening (03/04/2024 3:00 PM EDT) Cologuard Result Positive( A) Negative 03/10/2024 10:28 AM EDT [facility] (CLIA #:[id number]) Comment: POSITIVE TEST RESULT. A positive Cologuard result should be followed with a colonoscopy or visual examination of the colon. The normal value (reference range) for this assay is negative. TEST DESCRIPTION: Composite algorithmic analysis of stool DNA-biomarkers with hemoglobin immunoassay. Quantitative values of individual biomarkers are not [...] (Dominique Otto al, N Engl J Med 2014;370(14):5969-1021.) Cologuard may produce a false negative or false positive result (no colorectal cancer or precancerous polyp present at colonoscopy follow up). A negative Cologuard test result does not guarantee the absence of CRC or advanced adenoma (pre-cancer). The current Cologuard screening interval is every 3 years. ([place] [employer] Society and U.S. Multi-Society Task Force). Cologuard performance data in a 10,000 patient pivotal study using colonoscopy as the reference method can be accessed at the following location: www.[employer]/results. Additional description of the Cologuard test process, warnings and precautions can be found at www.[employer].com. Stool specimen (specimen) 03/04/2024 3:00 PM EDT 03/05/2024 11:39 AM EDT Lorene Lugo DO LAB MOLECULAR DIAGNOSTICS OR DERABLES Final Result [facility] (CLIA #:[id number]) [place] [address], * Hepatitis C Antibody with Reflex to HCV RNA,PCR w/Reflex to Genotype, LiPA (01/23/2023 8:47 AM EST) Hepatitis C Antibody NON-REACT MARCE NON-REACT MARCE [facility] [place] [employer] Index <0.02 <1.00 [facility] [employer] Comment: HCV antibody was non-reactive. There is no laboratory evidence of HCV infection. In most cases, no further action is required. However, if recent HCV exposure is suspected, a test for HCV RNA (test code 11586) is suggested. For additional information, please refer to http://education.[employer]/faq/GYU540 (This link is being provided for informational/ educational purposes only.) 01/23/2023 8:47 AM EST 01/23/2023 8:48 AM EST Narrative [facility] - 01/24/2023 6:35 PM EST FASTING:YES FASTING: YES Lorene Lugo DO LAB BLOOD ORDERABLES Final R esult [address], [place] [address] [facility] [place] [employer] [address] [place] [address] (Nl2) [place] [address] * Thinprep PAP, HPV mRNA E6/E7 RFX HPV 16,18/45, Chlamydia/N. Gonorrhoeae (01/16/2023 10:19 AM EST) Clinical Information: SREENIN PAP [facility] [place] [employer] [facility] LMP: NONE GIVEN [employer] Prev. PAP: YES [facility] Prev. BX: NO [facility] SOURCE: Cervix [facility] Statement Of Adequacy: SATISFACTORY FOR EVALUATION Partially obscuring inflammation [employer] Interpretation/Re sult: [employer] Comment: Negative for intraepithelial lesion or malignancy. Atrophic pattern; predominantly parabasal cells Municipal Court Judge: Quirino [email or web address] Comment: KR, CT(ASCP) CT screening location: [place] [address] (Always Message) [facility] [employer] Comment: EXPLANATORY NOTE: The Pap is a [...] HPV nRNA E6/E7 Not Detected Not Detected [employer] Comment: Methodology: Travel Service Consultant-Mediated Amplification This assay detects E6/E7 viral messenger RNA (mRNA) from 14 high-risk HPV types (16,18,31,33,35,39,45,51,52,56,58,59,66,68). Cervical sources are required for HPV testing. If a vaginal source from a patient who has had a total hysterectomy with removal of cervix was submitted, please contact the testing laboratory for alternative testing options. For additional information, please refer to http://[employer]/faq/OHW982w7 (This link if provided for information/ educational purposes only.) Chlamydia trachomatis RNA, TMA, Urogenital NOT DETECTED NOT DETECTED [employer] Neisseria gonorrhoeae RNA, TMA, Urogenital NOT DETECTED NOT DETECTED [employer] (Always Message) [facility] [employer] Comment: The analytical performance characteristics of this assay, when used to test SurePath(TM) specimens have been determined by [facility]. The modifications have not been cleared or approved by the FDA. This assay has been validated pursuant to the CLIA regulations and is used for clinical purposes. For additional information, please refer to https://[employer] [place]/faq/JOZ622 (This link is being provided for information/ educational purposes only.) Specimen from uterine cervix (specimen) 01/16/2023 10:19 AM EST 01/19/2023 12:52 AM EST us Lorene Lugo DO LAB PATHOLOGY ORDERABLES Fin al Result [facility] [address] [facility], [place] [address] [employer] [address] [facility], (Nl2) [place] [address] * Colonoscopy (12/13/2014) Colonoscopy Normal Normal Comment:Hyperplastic polyps 10yr 12/13/2014 Lauro Paredes MD HEALTH MAINTENANCE Final Res ult from Last 3 Months or Most Recently Relevant to Health Maintenance Insurance [facility] [employer] OPT[employer] (O D-SNP) [place] [id number] Care Teams Burglar Alarm Inspector Relationship Specialty Start Date End Date Lorene Lugo DO [address] [place] [address] PCP - General Family Medicine 11/30/18
--- OUTSIDE RECORDS SUMMARY | 2025-08-01 02:04 | XMS_ITS | Encounter Summary ---
Author Organization [employer] Address 75 [facility] [address] [place] [address] Care Team Providers Care Mounter Flutes And Piccolos Name Role Phone Lorene Lugo DO Primary Care Provider [phone] Reason for Visit * Reason Comments Med Refill Encounter Details Date Type Department Care Team (Late st Contact Info) Description 06/28/2025 Refill [facility] MED[facility]INE [address] [place], [place] [phone] Keiko Bowman, PharmD [address] [place] [address] Type 2 diabetes mellitus with microalbuminuria, without long-term current use of insulin ([facility]); Essential hypertension Social History Tobacco Use Types Packs/Day Years [...] as of this encounter Visit Diagnoses Diagnosis Type 2 diabetes mellitus with microalbuminuria, without long-term current use of insulin ([facility]) Essential hypertension Unspecified essential hypertension documented in this encounter Additional Health Concerns Assessment Noted Time PHQ-9 Depression Total Score: 0 08/25/20 23 9:41 AM EDT documented as of this encounter Care Teams Mounter Flutes And Piccolos Relationship Specialty Start Date End Date Lorene Lugo DO [address] [place] [address] PCP - General Family Medicine 11/30/18 documented as of this encounter
--- NOTE | 2025-08-01 04:14 | ED.GENADULT ---
HPI - General Adult General Chief complaint: Abdominal Pain Stated complaint: Abdominal Pain Time Seen by Provider: 08/01/25 04:07 Source: patient Limitations: no limitations History of Present Illness ED Provider: Denise Garcia PA-C HPI narrative: 64-year-old female with a history of morbid obesity, GERD, diabetes, hyperlipidemia, hypertension who presents with epigastric pain prior to arrival. Pain over epigastric region, unable to describe the nature of her discomfort, is nonradiating. Associated nausea and constipation. Denies distention or inability to pass flatus. Patient states she had COVID 2 weeks ago. No fevers. No diarrhea Related Data Home Medications ?Medication ?Instructions ?Recorded ?Confirmed aspirin 81 mg tablet,delayed 81 mg PO DAILY 03/15/21 06/15/24 release atorvastatin 40 mg tablet 40 mg PO BEDTIME 03/15/21 06/15/24 cholecalciferol (vitamin D3) 50 50 mcg PO DAILY 03/15/21 06/15/24 mcg (2,000 unit) tablet docusate sodium 100 mg capsule 100 mg PO DAILY 03/15/21 06/15/24 multivitamin-ferrous 1 tab PO DAILY 03/15/21 06/15/24 fumarate-folic acid 18 mg-400 mcg tablet omeprazole 20 mg capsule,delayed 20 mg PO DAILY 03/15/21 06/15/24 release sertraline 50 mg tablet 50 mg PO DAILY 03/15/21 06/15/24 losartan 50 mg tablet 50 mg PO DAILY 03/21/22 06/15/24 blood sugar diagnostic (FreeStyle #10 ea 05/22/22 06/15/24 Lite Strips) lancets 28 gauge (FreeStyle #100 ea 12/09/22 06/15/24 Lancets) cetirizine 10 mg tablet 10 mg PO DAILY 04/20/24 06/15/24 tirzepatide 5 mg/0.5 mL mg subcut 06/06/25 subcutaneous pen injector (Lalita) Previous Rx's ?Medication ?Instructions ?Recorded aluminum hydrox-magnesium carb 254 10 ml PO QID PRN dyspepsia #355 mL 03/17/25 mg-237.5 mg/5 mL oral suspension (Gaviscon Extra Strength) sucralfate 1 gram tablet (Carafate) 1 g PO BID #60 tabs 03/28/25 ondansetron 4 mg disintegrating 4 mg PO Q6H PRN nausea and 07/01/25 tablet vomiting #7 tabs cetirizine 5 mg-pseudoephedrine ER 1 tab PO BID 7 days #14 tabs 07/10/25 120 mg tablet,extended release,12hr fluticasone propionate 50 1 spray intranasal Q12H #16 grams 07/10/25 mcg/actuation nasal spray,suspension cephalexin 500 mg capsule 500 mg PO Q12H #13 caps 08/01/25 sucralfate 100 mg/mL oral 10 ml PO QID PRN indigestion #300 08/01/25 suspension (Carafate) mL Allergies Allergy/AdvReac Type Severity Reaction Status Date / Time ibuprofen (From Motrin) Allergy Mild Rash Verified 08/01/25 00:54 Review of Systems Review of Systems: Yes all other systems are reviewed and are negative Constitutional: Constitutional: Denies fatigue and Denies fever(s) Cardiovascular: Cardiovascular: Denies chest pain and Denies dyspnea Respiratory: Respiratory: Denies cough and Denies dyspnea Gastrointestinal: Gastrointestinal: Reports abdominal pain, Reports constipation, Denies diarrhea, Reports nausea and Denies vomiting Endocrine: Endocrine: Denies fatigue PMFSH Past Medical History Attestation statement: The following information was validated with the patient. Medical History Carpal tunnel syndrome of right wrist History of carpal tunnel syndrome GERD (gastroesophageal reflux disease) Arthritis HTN (hypertension) History of palpitations Mitral valve regurgitation Hyperlipidemia Nephrolithiasis Wrist pain, right Diabetes Surgical History Hx of colonoscopy History of esophagogastroduodenoscopy (EGD) History of tubal ligation Social History Social History Alcohol intake: never Patient Tobacco Use Status: Never used Tobacco Smoked in Last 30 Days: No Any prior treatment program specific to substance use: No Advance Directives: No Advance Directives Information Provided: Yes Current occupational status: disabled 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 Physical Exam ED Vital Signs: Vital Signs - 24 hr 08/01/25 00:49 Temperature 98.8 F Pulse Rate 80 Respiratory Rate 18 Blood Pressure 175/74 H Pulse Oximetry 110 H Oxygen Delivery Method Room Air BMI result Body Mass Index 35.9 Const Other: Alert Resp Effort & Inspection: normal respiratory effort Cardio Other: Normal peripheral perfusion GI Other: Obese, soft, nondistended, nontender no guarding Medications Administered Discontinued Medications Generic Name Dose Route Start Last Admin Trade Name Jarad PRN Reason Stop Dose Admin Ondansetron HCl 4 mg 08/01/25 04:20 08/01/25 05:01 Ondansetron Odt 4 Mg Tab.Rapdis TRANSLINGU 08/01/25 04:21 4 mg ONCE ONE Administration Sucralfate 1 gm 08/01/25 04:20 08/01/25 05:01 Sucralfate Oral Suspension 1 Gm/10 Ml Oral.Susp PO 08/01/25 04:21 1 gm ONCE ONE Administration Medical Decision Making Medical Decision Making [facility] Narrative: 64-year-old female with a history of morbid obesity, GERD, diabetes, hyperlipidemia, hypertension who presents with epigastric pain prior to arrival. Pain over epigastric region, unable to describe the nature of her discomfort, is nonradiating. Associated nausea and constipation. Denies distention or inability to pass flatus. Patient states she had COVID 2 weeks ago. No fevers. No diarrhea Problem: GERD, obesity, diabetes History: Per patient I have considered the following differential diagnoses: Biliary colic, cholecystitis, gastritis, pancreatitis, constipation, indigestion Plan: Given distribution of discomfort with nausea, I am considering underlying biliary versus gastric versus pancreatic etiology as cause for her symptoms. The patient does admit to having indigestion and constipation, this is the likely cause, her abdominal exam is benign. The patient is declining IV medication, we will be giving Zofran and Carafate. Obtaining a KUB. She is willing to have screening labs obtained. I have low suspicion for any acute abdominal pathology at this time. I have independently reviewed the following tests: Labs: No leukocytosis, not anemic, no electrolyte abnormality noted, urine appears potentially infected KUB:Findings: No pneumoperitoneum or pneumatosis. Mild fecal retention within the right colon. No abnormal calcifications. No acute fractures. IMPRESSION: Mild fecal retention. No bowel obstruction or free air. Differential Diagnosis Differential Diagnoses: The differential diagnosis associated with the presentation includes See [facility] Admission/Observation Consideration of admission/observation: Escalation of care including admission/observation considered Not applicable Lab Data [facility] Lab Attestation statement: I reviewed the patient's lab results. 08/01/25 04:32 08/01/25 04:32 Labs: Lab Results 08/01/25 Range/Units 04:32 WBC 6.7 (4.8-10.8) X10*3/uL RBC 4.00 L (4.20-5.50) X10*6/uL Hgb 11.3 L (12.0-16.0) g/dl Hct 33.9 L (37.0-47.0) % MCV 84.8 (80.0-98.0) fL MCH 28.3 (27.0-33.0) pg MCHC 33.3 (31.0-35.0) g/dl RDW 13.3 (11.0-16.0) % Plt Count 189 (160-400) X10*3/uL MPV 10.2 (9.4-12.3) fL Immature Gran % (Auto) 0.3 (0.0-0.4) % Neut % (Auto) 75.9 H (45-73) % Lymph % (Auto) 16.4 L (20-40) % [place] % (Auto) 6.9 (2-11) % Eos % (Auto) 0.3 (0-4) % Baso % (Auto) 0.2 (0-2) % Lymph # (Auto) 1.1 L (1.2-4.9) X10*3/uL [place] # (Auto) 0.5 (0.1-1.2) X10*3/uL Eos # (Auto) 0.0 (0.0-0.4) X10*3/uL Baso # (Auto) 0.0 (0.0-0.2) X10*3/uL Abs Immat Gran (auto) 0.02 (0.00-0.03) X10*3/uL Absolute Neuts (auto) 5.1 (2.0-8.3) x10*3/uL Absolute Nucleated RBC 0.000 (0.0-0.012) X10*3/uL Nucleated RBC % (auto) 0.0 (0.0-0.2) /100WBC Sodium 143 (135-145) mmol/L Potassium 4.4 (3.3-5.1) mmol/L Chloride 108 (96-108) mmol/L Carbon Dioxide 28 (22-29) mmol/L Anion Gap 11 L (12-20) BUN 10 (9-16) mg/dL Creatinine 0.56 (0.5-1.4) mg/dL Estim Creat Clear Calc 94.5 Estimated GFR > 60 Random Glucose 117 H (60-115) mg/dL Calcium 8.7 D (8.4-10.2) mg/dL Magnesium 1.7 (1.6-2.6) mg/dL Total Bilirubin 0.3 (0.0-1.0) mg/dL AST 27 (5-31) U/L ALT 20 (0-31) U/L Alkaline Phosphatase 80 (39-117) U/L Total Protein 6.5 (6.5-8.0) g/dL Albumin 3.7 (3.5-5.0) g/dL Lipase 61 (8-78) U/L Urine Color Yellow Urine Appearance Cloudy Urine pH 6.5 (5.0-9.0) Ur Specific [place] 1.015 (1.005-1.025) Urine Protein Negative (Neg-Trace) mg/dL Urine Glucose (UA) Negative (Negative) mg/dL Urine Ketones Negative (Negative) mg/dL Urine Blood Negative (Negative) Urine Nitrite Negative (Negative) Ur Leukocyte Esterase Large (3+) H (Negative) Urine RBC 0-2 (0-2) /HPF Urine WBC >50 H (0-5) /HPF Ur Squamous Epith Cells 6-10 (0-2) /HPF Urine Bacteria None Seen (None Seen) Hyaline Casts 0-2 (0-2) /LPF Radiology Impression Discussion of test interpretation with radiology: I have reviewed the radiologist's reading. Chronic Conditions Patient?s care impacted by: Diabetes Discharge Plan Discharge Clinical Impression: Urinary tract infection, Constipation, Indigestion Patient Disposition: Home, Self-Care Instructions: Constipation (ED), Urinary Tract Infection in Women (ED), Indigestion (ED) Additional Instructions: The x-ray revealed that you are constipated, you also have a urinary tract infection. You were also treated for indigestion here in the emergency department, this likely occurred secondary to your constipation. See home care instructions. Take the cephalexin as directed for your urinary tract infection. In regard to the indigestion, do not eat 3 hours before bed, eating smaller meals throughout the day can help deter symptoms. Use the Carafate as needed for indigestion related symptoms. In regard to the constipation, you can use [id number] Colace, 1 to 2 times a day, this is a stool softener. Use [id number] MiraLax, 1 to 2 times a day, until your bowel habits self regulate. Follow up with your primary care provider as needed. Prescriptions: New sucralfate [Carafate] 100 mg/mL suspension 10 ml PO QID PRN (Reason: indigestion) Qty: 300 0RF Rx Instructions: swish in mouth and swallow; use after food/drink cephalexin 500 mg capsule 500 mg PO Q12H Qty: 13 0RF No Action Gaviscon Extra Strength 254-237.5 mg/5 mL suspension 10 ml PO QID PRN (Reason: dyspepsia) Qty: 355 0RF cetirizine 10 mg Tablet 10 mg PO DAILY sucralfate [Carafate] 1 gram tablet 1 g PO BID Qty: 60 0RF ondansetron 4 mg tablet,disintegrating 4 mg PO Q6H PRN (Reason: nausea and vomiting) Qty: 7 0RF Centrum Women 18-400 mg-mcg tablet 1 tab PO DAILY cholecalciferol (vitamin D3) 50 mcg (2,000 unit) tablet 50 mcg PO DAILY sertraline 50 mg tablet 50 mg PO DAILY aspirin 81 mg tablet,delayed release (DR/EC) 81 mg PO DAILY omeprazole 20 mg capsule,delayed release(DR/EC) 20 mg PO DAILY atorvastatin 40 mg tablet 40 mg PO BEDTIME docusate sodium 100 mg capsule 100 mg PO DAILY (DME) lancets [FreeStyle Lancets] 28 gauge misc See Rx Instructions .ROUTE BID Qty: 100 Rx Instructions: As directed losartan 50 mg tablet 50 mg PO DAILY (DME) FreeStyle Lite Strips Strip See Rx Instructions Not Applicable BID Qty: 10 Rx Instructions: As directed Mounjaro 5 mg/0.5 mL pen injector subcut cetirizine-pseudoephedrine 5-120 mg tablet extended release 12 hr 1 tab PO BID 7 Days Qty: 14 0RF fluticasone propionate 50 mcg/actuation spray,suspension 1 spray intranasal Q12H Qty: 16 0RF Rx Instructions: administer into each nostril Print Language: Ghanaian
[2025-08-01 04:37] LABS: Hematocrit 33.9 % (37.0-47.0); Hemoglobin 11.3 g/dl (12.0-16.0); Imm Gran Abs Auto 0.02 X10*3/uL (0.00-0.03); Imm Gran Pct Auto 0.3 % (0.0-0.4); Lymphocytes Absolute Auto 1.1 X10*3/uL (1.2-4.9); MANUAL DIFF FLAG NO; Mean Corpuscular HGB Conc 33.3 g/dl (31.0-35.0); Mean Corpuscular Hemoglobin 28.3 pg (27.0-33.0); Mean Corpuscular Volume 84.8 fL (80.0-98.0); NRBC Abs Auto 0.000 X10*3/uL (0.0-0.012); NRBC Pct Auto 0.0 /100WBC (0.0-0.2); Platelet Count 189 X10*3/uL (160-400); Red Blood Count 4.00 X10*6/uL (4.20-5.50); White Blood Count 6.7 X10*3/uL (4.8-10.8)
[2025-08-01 04:38] LABS: Appearance Urine Cloudy; Glucose Urine UA Negative (Negative); PH 6.5 (5.0-9.0); Specific Gravity - Urine 1.015 (1.005-1.025); UMIC TRIGGER UACC YES
[2025-08-01 04:45] LABS: UACC Culture Trigger YES
[2025-08-01 04:51] LABS: Alanine Aminotransferase 20 U/L (0-31); Albumin Level 3.7 g/dL (3.5-5.0); Alkaline Phosphatase 80 U/L (39-117); Anion Gap 11 (12-20); Aspartate Amino Transferase 27 U/L (5-31); Blood Urea Nitrogen 10 mg/dL (9-16); Calcium 8.7 mg/dL (8.4-10.2); Carbon Dioxide 28 mmol/L (22-29); Chloride 108 mmol/L (96-108); Creatinine Clr Calc Pharmacy 94.5; Estimated Glomerular Filt Rate > 60; Lipase 61 U/L (8-78); Magnesium 1.7 mg/dL (1.6-2.6); Potassium 4.4 mmol/L (3.3-5.1); Sodium 143 mmol/L (135-145); Total Protein 6.5 g/dL (6.5-8.0)
[2025-08-01] MEDS: Sucralfate Oral Suspension 1 GM/10 ML ORAL.SUSP PO (05:01)
[2025-08-01 06:15] VITALS: BP 143/69; PULSE 72; RESP 16; TEMP 36.6; O2SAT 97
[2025-08-01 06:16] VITALS: BP 143/69; PULSE 72; RESP 16; TEMP 36.6; O2SAT 97
== END 2025-08-01 06:17 | disposition home or self-care (01) ==
PROVIDERS: Physician Assistant Medical; Emergency Provider Emergency Medicine; PCP Family Medicine
DX: N39.0 Urinary tract infection, site not specified (principal); R10.13 Epigastric pain; K59.00 Constipation, unspecified; R11.0 Nausea; Z79.899 Other long term (current) drug therapy
CPT/HCPCS: 36415; 74018; 80053; 81001; 83690; 83735; 85025; 87086; 99283; 99284

== ENCOUNTER → 2025-08-01 04:11 | Outpatient (BNV) | payer OTHER, SELFPAY | PROVIDERS: Emergency Provider Emergency Medicine; PCP Family Medicine; Visit Provider Radiology Vascular & Interventional Radiology | DX: R10.84 Generalized abdominal pain (principal) | CPT/HCPCS: 74018 ==

== ENCOUNTER 2025-09-21 09:55 | Outpatient (REF) | payer OTHER, SELFPAY ==
--- OUTSIDE RECORDS SUMMARY | 2025-09-21 11:29 | XMS_ITS | Encounter Summary ---
Author Organization [employer] Address 75 [facility] 7t [place] [address] Care Team Providers Care Dull Coat Mill Operator Name Role Phone Lorene Lugo DO Primary Care Provider Keiko Bowman PharmD Unavailable [phone] Encounter Details Date Type Department Care Team (Late st Contact Info) Description 12/27/2024 Orders Only [facility] [address] [place] [address] Provider, MD Belinda Social History Tobacco Use [...] Author Blood Pressure < 140/90 Blood Pressure 132/70(2024 9:14 AM EDT) No Alo Freitas, PharmD Record your blood pressure at least once per week Blood Pressure Worsening(11/2022 9:44 AM EDT) No Keiko Bowman PharmD Hemoglobin A1c < 7 Result Component 6.1( 9:15 AM EDT) No Alo Freitas, PharmD Record [...] documented as of this encounter Care Teams Dull Coat Mill Operator Relationship Specialty Start Date End Date Lorene Lugo DO [address] [place] [address] PCP - General Family Medicine 11/30/18 Keiko Bowman, Sumit [address] [place] [address] Pharmacist Internal Medicine 06/19/23 04/09/25 documented as of this encounter
--- OUTSIDE RECORDS SUMMARY | 2025-09-21 11:29 | XMS_ITS | Encounter Summary ---
Author Organization [employer] Address 75 [facility] 7t [place] [address] Care Team Providers Care Absorber Operator Name Role Phone Lorene Lugo DO Primary Care Provider PuKeiko guzamn PharmD Unavailable Reason for Visit * Reason Onset Date Comments Request For Order(s) 02/22/2024 Encounter Details Date Type Department Care Team ([facility] st Contact Info) Description 02/22/2024 Telephone [facility] MEDICINE [address] [place], [place] [phone] Lorene Lugo DO [address] [place] [address] Request For Order(s) Social History Tobacco Use [...] 3:57 PM EDT TC placed to pt [phone] in regards to below message. Pt reports she has already called [facility] to cancel the colonoscopy. Pt informed [...] not feeling well. Please contact pt at [phone] documented in this encounter Plan of Treatment [...] 6.1( 9:15 AM EDT) No Alo Freitas, PharmDillon Record your blood sugar as directed Result Component On track( 023 9:44 AM EDT) No Keiko Bowman PharmD documented as of this encounter Visit Diagnoses Not on filedocumented in this encounter Additional Health Concerns Assessment Noted Time PHQ-9 Depression Total Score: 0 08/25/20 9:41 AM EDT documented as of this encounter Care Teams Absorber Operator Relationship Specialty Start Date End Date Lorene Lugo DO [address] [place] [address] PCP - General Family Medicine 11/30/18 Keiko Bowman PharmD [address] [place] [address] Pharmacist Internal Medicine 06/19/23 04/09/25 documented as of this encounter
--- OUTSIDE RECORDS SUMMARY | 2025-09-21 11:29 | XMS_ITS | Encounter Summary ---
Author Organization [employer] Address 75 [facility] 7t [place] [address] Care Team Providers Care Physician Intensivist Name Role Phone Lorene Lugo DO Primary Care Provider [phone] Reason for Visit * Reason Comments Med Refill Encounter Details Date Type Department Care Team (Late st Contact Info) Description 08/30/2025 Refill [facility] CHC MED & PEDS [address] [place] [address] Lorene Lugo DO [address] [place] [address] Type 2 diabetes mellitus with microalbuminuria, without long-term current use of insulin (HCC) Social History Tobacco Use Types Packs/Day Years Used Date Smoking Tobacco: Never Passive Smoke Exposure: Never Smokeless Tobacco: Never Alcohol Use Standard Drinks/Week Comments Never 0 (1 standard drink = 0.6 oz pur e alcohol) Depression Answer Date Recorded Patient Health Questionnaire-9 Score 0 08/29/2025 Patient Health Questionnaire-9 Score 0 08/29/2025 Last PHQ-9: Questionnaire Data Not on file 0 08/29/2025 Housing Stability Answer Date Recorded What is your housing situation today? I have patricia iraheta 08/29/[address] you li ve. Do you have problems with any of the following? None of the above 08/29/2025 Food Insecurity Answer Date Recorded Within the past 12 months, y ou worried that your food would run out before you got money to buy more: Never True 08/29/2025 Within the past 12 months,th e food you bought just didn't last and you didn't have enough money to get more: Never True Transportation Answer Date Recorded In the past 12 months, has l ack of transportation kept you from medical appts, meetings, work or from getting things needed for daily living? No 08/29/2025 Utilities Answer Date Recorded In the past 12 months, has t he electric, gas, oil or water company threatened to shut off services in your home? No 08/29/2025 Depression Answer Date Recorded Patient Health Questionnaire-2 Score 0 08/29/2025 Internet Access Answer Date Recorded Internet Access Q1 No 08/29/2025 Internet Access Q2 I do not want or need it 08/02 Comments No Sex and Gender Information Value [...] Blood Pressure 132/70(2024 9:14 AM EDT) No Dellogono, Alo, PharmD Record your blood pressure at least once per week Blood Pressure Worsening(11/2022 9:44 AM EDT) No Puia, Keiko, PharmD Hemoglobin A1c < 7 Result Component 6.1( 9:15 AM EDT) No Dellogono, Alo, PharmD Record your blood sugar as directed Result Component On track( 023 9:44 AM EDT) No Puia, Keiko, PharmD documented as of this encounter Visit Diagnoses Diagnosis Type 2 diabetes mellitus with microalbuminuria, without long-term current use of insulin (HCC) documented in this encounter Additional Health Concerns Assessment Noted Time PHQ-9 Depression Total Score: 0 08/29/20 25 2:16 PM EDT documented as of this encounter Care Teams Physician Intensivist Relationship Specialty Start Date End Date Lorene Lugo DO [address] [place] [address] PCP - General Family Medicine 11/30/18 documented as of this encounter
--- OUTSIDE RECORDS SUMMARY | 2025-09-21 11:29 | XMS_ITS | Encounter Summary ---
Author Organization [email or web address] Address 75 [facility] [address]t [place] [address] Care Team Providers Care Agricultural Research Technologist Name Role Phone Lorene Lugo DO Primary Care Provider [phone] PuKeiko guzman PharmD Unavailable Reason for Visit * Reason Comments Med Refill Encounter Details Date Type Department Care Team (Late st Contact Info) Description 02/09/2025 Refill [facility] CHC MED & PEDS [address] [place], [place] [phone] Lorene Lugo DO [address] [place] [address] Healthcare maintenance Social History Tobacco Use Types [...] documented as of this encounter Care Teams Agricultural Research Technologist Relationship Specialty Start Date End Date Lorene Lugo DO [address] [place] [address] PCP - General Family Medicine 11/30/18 Puia, Keiko, PharmD [address] [place] [address] Pharmacist Internal Medicine 06/19/23 04/09/25 documented as of this encounter
--- OUTSIDE RECORDS SUMMARY | 2025-09-21 11:29 | XMS_ITS | Encounter Summary ---
Author Organization [employer] Address 75 [facility] [address]t [address] [address] Care Team Providers Care Hha Name Role Phone Lorene Lugo DO Primary Care Provider PuKeiko guzman PharmD Unavailable [phone] Reason for Visit * Reason Comments Med Refill Encounter Details Date Type Department Care Team (Late st Contact Info) Description 12/28/2024 Refill [facility] MEDICINE [address] [place], [place] [phone] Lorene Lugo DO [address] [place], [place] [phone] Social History Tobacco Use Types Packs/Day Years [...] documented as of this encounter Care Teams Hha Relationship Specialty Start Date End Date Lorene Lugo DO [address] [place] [address] PCP - General Family Medicine 11/30/18 Puia, Keiko, PharmD [address] [place] [address] Pharmacist Internal Medicine 06/19/23 04/09/25 documented as of this encounter
--- OUTSIDE RECORDS SUMMARY | 2025-09-21 11:29 | XMS_ITS | Encounter Summary ---
Author Organization [employer] Address 75 [facility] [address]t [place] [address] Care Team Providers Care Aircraft Life Support Fitter Name Role Phone Lorene Lugo DO Primary Care Provider PuKeiko guzman PharmD Unavailable [phone] Reason for Visit * Reason Comments Med Refill Encounter Details Date Type Department Care Team (Late st Contact Info) Description 09/24/2024 Refill [facility] CHC MED & PEDS [address] [place], [place] [phone] Lorene Lugo DO [address] [place] [address] Social History Tobacco Use Types Packs/Day Years [...] as of this encounter Care Teams Aircraft Life Support Fitter Relationship Specialty Start Date End Date Lorene Lugo DO [address] [place] [address] PCP - General Family Medicine 11/30/18 Puia, Keiko, PharmD [address] [place] [address] Pharmacist Internal Medicine 06/19/23 04/09/25 documented as of this encounter
--- OUTSIDE RECORDS SUMMARY | 2025-09-21 11:29 | XMS_ITS | Encounter Summary ---
Author Organization [employer] Address 75 [facility] [address]t [place] [address] Care Team Providers Care Pediatric Licensed Practical Nurse Name Role Phone Lorene Lugo DO Primary Care Provider Puia, Keiko PharmD Unavailable Reason for Visit * Reason Comments Med Refill Encounter Details Date Type Department Care Team (Late st Contact Info) Description 02/09/2025 Refill [facility] MEDICINE [address] [place], [place] [phone] Puia, Keiko, PharmD [address] [place] [address] Social History Tobacco Use Types Packs/Day Years [...] intended per last CDTM plan) waiting for pick pulling machine tender. This request for 2.5 mg was sent in error. No action required. documented in this encounter Plan of Treatment Not on file documented as of this encounter Goals Goal Patient Goal Type Associated Problems Recent Progress Patient-Stated? Author Blood Pressure < 140/90 Blood Pressure 132/70(2024 9:14 AM EDT) No Alo Freitas PharmD Record your blood pressure at least once per week Blood Pressure Worsening(11/2022 9:44 AM EDT) No Keiko Bowman PharmD Hemoglobin A1c < 7 Result Component 6.1( 9:15 AM EDT) No Alo Freitas PharmD Record your blood sugar as directed Result Component On track( 023 9:44 AM EDT) No Keiko Bowman PharmD documented as of this encounter Visit Diagnoses Not on filedocumented in this encounter Additional Health Concerns Assessment Noted Time PHQ-9 Depression Total Score: 0 08/25/20 9:41 AM EDT documented as of this encounter Care Teams Pediatric Licensed Practical Nurse Relationship Specialty Start Date End Date Lorene Lugo DO [address] [place] [address] PCP - General Family Medicine 11/30/18 Keiko Bowman PharmD [address] [place] [address] Pharmacist Internal Medicine 06/19/23 04/09/25 documented as of this encounter
--- OUTSIDE RECORDS SUMMARY | 2025-09-21 11:29 | XMS_ITS | Encounter Summary ---
Author Organization [employer] Address [address] [facility] [address] [place] [address] Care Team Providers Care Wireless Architect Name Role Phone Lorene Lugo DO Primary Care Provider PuKeiko guzman PharmD Unavailable Reason for Visit * Reason Comments Med Refill Encounter Details Date Type Department Care Team (Late st Contact Info) Description 04/13/2024 Refill [facility] [address] [place], [place] [phone] Lorene Lugo DO [address] [place] [address] Social History Tobacco Use Types Packs/Day Years [...] documented as of this encounter Care Teams Wireless Architect Relationship Specialty Start Date End Date Lorene Lugo DO [address] [place] [address] PCP - General Family Medicine 11/30/18 Puia, Keiko, PharmD [address] [place] [address] Pharmacist Internal Medicine 06/19/23 04/09/25 documented as of this encounter
--- OUTSIDE RECORDS SUMMARY | 2025-09-21 11:30 | XMS_ITS | Encounter Summary ---
Author Organization [employer] Address [address] [place] [address] [address] [place] [address] Care Team Providers Care Roofer Applicator Name Role Phone Lorene Lugo DO Primary Care Provider Dellogono, Alo PharmD Unavailable Unavail able Pumegan Keiko PharmD Unavailable [phone] Encounter Details Date Type Department Care Team (Late st Contact Info) Description 01/06/2023 Orders Only [facility] [address] [place] [address] Lorene Hollingsworth LPN Social History Tobacco Use [...] EDT 08/25/2023 6:40 PM EDT Comment:[facility] Narrative [facility] - 08/27/2023 11:24 AM EDT Urine Culture Report Result Urine Culture 10,000 to 50,000 cfu/ml Urine Culture Mixed bacterial meenu characteristic of Urine Culture urogenital contamination. Specimen Source: Urine clean catch Lorene Lugo DO LAB MICROBIOLOGY - GENERAL O RDERABLES Final Result Performing Organization Address [facility] Co de Phone Number [facility] [address] [place] [address] [phone] * (ABNORMAL) [employer] Covid-19 Ag (07/07/2023 1:04 PM EDT) [facility] Covid-19 Ag Positive (A) Negative [facility] Comment:Result reported to Raul [facility].All test results must be correlated with clinical findings.This test has been authorized by the FDA under an EmergencyUse Authorization(EUA)for use by authorized laboratories.Testing performed on the [employer] Covid-19 Ag Card which eva lateral flow immunoassay. The test does not differentiatebetween the SARS-CoV and SARS-COV-2. 07/07/2023 1:04 PM EDT 07/07/2023 1:34 PM EDT [facility]al Provider LAB BODY FLUIDS AND STOOLS ORDERABLES Final Result Performing Organization Address [facility] de Phone Number [facility] [address] [place] [address] [phone] documented in this encounter Visit Diagnoses Not on filedocumented in this encounter Care Teams Roofer Applicator Relationship Specialty Start Date End Date Lorene Lugo DO [address] [place] [phone] PCP - General Family Medicine 11/30/18 Alo Freitas, PharmD [address] [place] [address] Pharmacist Internal Medicine 02/11/23 06/18/23 Keiko Bowman, Sumit [address] [place] [address] Pharmacist Internal Medicine 06/19/23 04/09/25 documented as of this encounter
--- OUTSIDE RECORDS SUMMARY | 2025-09-21 11:30 | XMS_ITS | Clinical Summary ---
Author Organization [employer] Address [address] [place] [address] [address] [place] [address] Care Team Providers Care Applications Chemist Name Role Phone Brittney Lorene Primary Care Provider [phone] Allergies Active Allergy Reactions Criticality Noted Date Comments Goyo Inhibitors Cough Ibuprofen Rash Medium Other reaction(s): rash Other Reaction(s): Unknown Medications acetaminophen (Tylenol 8 Hour) 650 MG ER tablet Take 1 tablet (650 mg) by mouth every 8 (eight) hours if needed for mild pain. Do not crush, chew, or split. 60 tablet 2 024 2024 Active Alcohol Swabs (Alcohol Prep) 70 % pads USE TWICE DAILY 100 each 025 Active docusate sodium (Colace) 100 MG capsule TAKE 1 CAPSULE(100 MG) BY MOUTH TWICE DAILY 180 capsule 3 025 Active sertraline (Zoloft) 50 MG tablet Take 1 tablet (50 mg) by mouth Once per day. 90 tablet 3 025 Active Multiple Vitamins-Minerals (Multi For Her 50+) tabletIndications: Healthcare maintenance TAKE 1 TABLET BY MOUTH EVERY MORNING 90 tablet 3 025 Active FreeStyle lancetsIndications :Type 2 diabetes mellitus with microalbuminuria, without long-term current use of insulin (HCC) USE TO TEST BLOOD SUGAR TWICE DAILY 200 each 11 025 Active famotidine (Pepcid) 20 MG tablet Take 1 tablet (20 mg) by mouth if needed at bedtime for heartburn. 30 tablet 11 025 2025 Active sucralfate (Carafate) 1 g tablet Take 1 tablet by mouth 2 times daily. 025 Active aspirin (Aspirin Low Dose) 81 MG EC tabletIndications: Type 2 diabetes mellitus with microalbuminuria, without long-term current use of insulin ([facility]),Other hyperlipidemia Take 1 tablet (81 mg) by mouth in the morning. 90 tablet 3 025 Active losartan (Cozaar) 50 MG tabletIndications: Type 2 diabetes mellitus with microalbuminuria, without long-term current use of insulin ([facility]),Essential hypertension Take 1 tablet (50 mg) by mouth Once daily. 90 tablet 025 Active Tirzepatide (Mounjaro) 5 MG/0.5ML solution auto-injectorIndic ations:Type 2 diabetes mellitus with microalbuminuria, without long-term current use of insulin ([facility]) Inject 5 mg under the skin 1 (one) time per week. 2 mL Active Diclofenac Sodium 1 % gelIndications:Chr onic pain of left knee Apply topically to affected areas twice daily 150 g 025 Active cholecalciferol (Vitamin D-3) 50 MCG (1999 UT) tablet TAKE 1 TABLET BY MOUTH EVERY DAY 90 tablet 1 025 Active polyethylene glycol, PEG, 3350 (Glycolax) 17 GM/SCOOP powderIndications: Constipation, unspecified constipation type DISSOLVE AND MIX 17 GM INTO WATER. DRINK ONCE DAILY NEEDED FOR CONSTIPATION 238 g 5 025 Active omeprazole (PriLOSEC) [address] capsuleIndications :Chronic gastroesophageal reflux disease TAKE 1 CAPSULE BY MOUTH TWICE DAILY BEFORE BREAKFAST AND DINNER 180 capsule 025 Active cetirizine (ZyrTEC) 10 MG tablet TAKE 1 TABLET BY MOUTH EVERY MORNING 90 tablet 025 Active atorvastatin (Lipitor) 80 MG tabletIndications: Type 2 diabetes mellitus with microalbuminuria, without long-term current use of insulin ([facility]),Other hyperlipidemia TAKE 1 TABLET(80 MG) BY MOUTH DAILY 90 tablet 3 025 Active glucose blood (FREESTYLE LITE) test stripIndications:T ype 2 diabetes mellitus with microalbuminuria, without long-term current use of insulin (HCC) USE TO TEST BLOOD TWICE DAILY 100 strip 11 Active polycarbophil (Fibercon) 625 MG tablet Take 1 tablet (625 mg) by mouth 2 times daily. 180 tablet 3 025 2025 Active gabapentin (Neurontin) 100 MG capsule Take 1 capsule (100 mg) by mouth at bedtime. 30 capsule 3 025 2025 Active gabapentin (Neurontin) 100 MG capsule Take 1 capsule (100 mg) by mouth at bedtime. 30 capsule 3 025 2024 Discontinued(R eorder (will not [...] as above Chronic gastroesophageal reflux disease 01/16/20 23 Assessment & Plan (02/17/2024 2:55 PM EDT): [...] with fish oil supplementation Microalbuminuria 10/03/2015 BMI 35.0-35.9,adult 10/03/2015 Resolved Problems Problem Noted Date Diagnosed [...] Encounters Date Type Department Care Team Description 08/30/2025 Refill [facility] [address] [place] [address] Lorene Lugo DO Type 2 diabetes mellitus with microalbuminuria, without long-term current use of insulin ([facility]) 08/28/2025 9:00 AM EDT Office Visit [facility] [address] [place] [phone] Lorene Lugo DO Type 2 diabetes mellitus with diabetic microalbuminuria, without long-term current use of insulin ([facility]) (Primary Dx); Essential hypertension; Other hyperlipidemia; Fatty liver; Anxiety; Mitral valve insufficiency, unspecified etiology; Chronic gastroesophageal reflux disease; Chronic constipation; History of nephrolithiasis; Left leg pain; Balance disorder; Healthcare maintenance; Dietary counseling; Exercise counseling; Encounter for immunization 08/28/2025 Travel 08/24/2025 Telephone [facility] [address] [place] [phone] Lorene Lugo DO Call back request 08/22/2025 Telephone [facility] [address] [place] [phone] Lorene Lugo DO Chart Prep 08/21/2025 Patient Outreach [facility] [address] [place] [phone] Lorene Lugo DO Pre-visit Planning ((Unable to reach for PVP screening, LVM) to be completed in office ) 08/17/2025 Refill [facility] [address] [place] [address] Lorene Lugo DO Type 2 diabetes mellitus with microalbuminuria, without long-term current use of insulin ([facility]) 08/08/2025 Refill [facility] [address] [place] [address] Lorene Lugo DO Type 2 diabetes mellitus with microalbuminuria, without long-term current use of insulin ([facility]); Other hyperlipidemia 08/02/2025 Telephone [facility] [address] [place] [address] Lorene Lugo DO Recall Appointment 08/02/2025 Travel 08/01/2025 Orders Only GENERIC EXTERNAL DATA DEPARTMENT Provider, Generic External Data 07/10/2025 Orders Only GENERIC EXTERNAL DATA DEPARTMENT Provider, Generic External Data 07/01/2025 Orders Only GENERIC EXTERNAL DATA DEPARTMENT Provider, Generic External Data 06/28/2025 Refill [facility] [address] [place] [address] Keiko Bowman, Sumit Type 2 diabetes mellitus with microalbuminuria, without long-term current use of insulin ([facility]); Essential hypertension 06/28/2025 Refill [facility] [address] [place] [address] Lorene Lugo DO from Last 3 Months Immunizations Immunization Administration Dates Next Due Hep B, adult 02/17/2024, 5,08/28/2014,07/18 Influenza Injectable Quadriv alant Preservative Free IIV4 MDCK 09/03/2022,09/02/2021 Influenza injectable quadriv alent IIV4 with preservative 09/29/2018,09/10/2016,09/11/2015 Influenza injectable quadriv alent preservative free 08/25/2023,08/23/2020,08/30/2019,09/24 Influenza, High Dose Seasona l, Preservative Free 08/28/2025,10/07/2024 Influenza, IIV3, injectable 11/30/2023,0 08/28/2014,08/14/2011,09/11,10/07/2007,09/24/2006,10/28/2005 ,10/07/2004,09/19/2003,09/29/2002,10/01 Influenza, [...] housing situation today? I have patriciamireya iraheta 08/29/[address] you [...] Sign Reading Time Taken Comments Blood Pressure 132/70 08/28/2025 9:14 AM EDT Pulse 82 08/28/2025 9:14 AM EDT Temperature 36.6 C (97.9 F) 08/28/2025 9:14 AM EDT Respiratory Rate 20 08/28/2025 9:14 AM EDT Oxygen Saturation 98% 08/28/2025 9:14 AM EDT Inhaled Oxygen Concentration - - Weight 83.2 kg (183 lb 6 oz) 08/28/2025 9:14 AM EDT Height 152.4 cm (5') 08/28/2025 9:14 AM EDT Body Mass Index 35.81 08/28/2025 9:14 AM EDT Plan of Treatment Health Maintenance Due Date Last Done Comments CT Colonography 1958 FIT 1958 Sigmoidoscopy 1960 Diabetes: Foot Exam 1968 Eye Exam 1968 Hepatitis A Vaccines (1 of 2 - Risk 2-dose series) 1977 Colonoscopy 12/13/2024 12/13/2014 FOBT 03/04/2025 03/04/2024 COVID-19 Vaccine ( season) 2025 12/17/2021, 05/30/2021, 05/09/2021 Mammogram 09/15/2025 09/15/2024, 08/30, 09/08/2023, Additional history exists Diabetes: Hemoglobin A1C 02/25/2026 025, 04/06/2025, 04/05/2025, Additional history exists Alcohol/Substance Use Screening 04/05/2026 04/05/2025 Lipid Panel 04/06/2026 04/06/2025, 10/01, 11/02/2023, Additional history exists Tobacco Screening 08/28/2026 08/28/2025 Depression Screening 08/29/2026 08/29/2025, 08/29/20 25 SDOH Screening 08/29/2026 08/29/2025 Colorectal Cancer Screening 03/04/2027 FIT DNA/Cologuard 03/04/2027 [...] 08/28/2014, Additional history exists Influenza Vaccine Completed 08/28/2025, , 11/30/2023, Additional history exists HIB Vaccines Aged Out [...] [facility] Hemoglobin A1c < 7 Result Component 6.1( 9:15 AM EDT) No Alo Freitas, PharmD Record your blood sugar as directed Result Component On track( 023 9:44 AM EDT) No Keiko Bowman, PharmDillon Procedures Procedure Name Priority Date/Time Associated Diagnosis Comments POCT GLYCATED HEMOGLOBIN, TOTAL Routine 08/28/2025 9:15 AM EDT Type 2 diabetes mellitus with diabetic microalbuminuria, without long-term current use of insulin ([facility]) POCT GLUCOSE Routine 08/28/2025 9:15 AM EDT Type 2 diabetes mellitus with diabetic microalbuminuria, without long-term current use of insulin ([facility]) XR KUB AND UPRIGHT 2 VIEWS Routine 08/01/2025 5:09 AM EDT LIPASE Routine 08/01/2025 4:32 AM EDT MAGNESIUM Routine 08/01/2025 4:32 AM EDT COMPREHENSIVE METABOLIC PANEL Routine 08/01/2025 4:32 AM EDT URINALYSIS, COMPLETE, WITH REFLEX TO CULTURE Routine 08/01/2025 4:32 AM EDT CBC WITH AUTO DIFFERENTIAL Routine 08/01/2025 4:32 AM EDT CULTURE, URINE, ROUTINE Routine 08/01/2025 12:00 AM EDT SARS COV2/INFLUENZA A/B AND RSV [...] URINE, ROUTINE Routine 07/01/2025 12:00 AM EDT LIPID PANEL, STANDARD Routine 04/06/2025 10:19 AM [...] to Health Maintenance Results * (ABNORMAL) POCT Hgb A1c (08/28/2025 9:15 AM EDT) Hemoglobin A1C 6.1(A) 4.0 - 5.7 % QC Media Lot # [id number] Lot# Expiration Date Blood 08/28/2025 9:15 AM EDT Lorene Lugo DO POINT OF CARE TEST ENTER/TANNER T ORDERABLES Final Result * POCT Glucose (08/28/2025 9:15 AM EDT) Glucose Blood, POC 174 60 - 200 mg/dL QC Media Lot # [id number] Lot# Expiration Date Blood Capillary blood specimen / Unknown 08/28/2025 9:15 AM EDT Lorene Lugo DO POINT OF CARE TEST ENTER/TANNER T ORDERABLES Final Result * XR KUB and Upright 2 Views (08/01/2025 5:09 AM EDT) Anatomical Region Laterality Modality Radiographic Kalyani ging 08/01/2025 5:09 AM EDT Narrative 08/01/2025 5:11 AM EDT [address] [address] XRay Report Signed Patient: Cheryl Samson I MR#: [id number] 96 : 1960 Acct:[id number] Age/Sex: 64 / F ADM Date: 08/01/25 Loc: .ED Attending Dr: Ordering Physician: Denise Garcia Date of Service: 08/01/25 Procedure(s): XR KUB Accession Number(s): [id number] cc: Denise Garcia; Lorene Lugo DO CLINICAL HISTORY: pain 1 view abdomen Comparison: None provided Findings: No pneumoperitoneum or pneumatosis. Mild fecal retention within the right colon. No abnormal calcifications. No acute fractures. IMPRESSION: Mild fecal retention. No bowel obstruction or free air. This document has been electronically signed by: David Connolly MD on 08/01/2025 05:09:37 Dictated By: David Connolly MD Signed By: <Electronically signed by David Connolly MD in OV> 08/01/25 0510 DD/ 0509 TD/TT: 08/01/25 050 Tea Leaf Reader: Procedure Note Donotuseinterpreter, Image - 08/01/[address] [address] XRay Report Signed Patient: Cheryl Samson IMR#: [id number] 96 : 1960cct:[id number] Age/Sex: 64 / FADM Date: 08/01/25 Loc: HO.ED Attending Dr: Ordering Physician: Denise Garcia Date of Service: 08/01/25 Procedure(s): XR KUB Accession Number(s): [id number] cc: Denise Garcia; Lorene Lugo DO CLINICAL HISTORY: pain 1 view abdomen Comparison: None provided Findings: No pneumoperitoneum or pneumatosis. Mild fecal retention within the right colon. No abnormal calcifications. No acute fractures. IMPRESSION: Mild fecal retention. No bowel obstruction or free air. This document has been electronically signed by: David Connolly MD on 08/01/2025 05:09:37 Dictated By: David Connolly MD Signed By: <Electronically signed by David Connolly MD in OV> 08/01/25 0510 DD/ 8 TD/TT: 08/01/25 050 Tea Leaf Reader: [facility] External Provider IMG XR PROCEDURES Edited Result - Final * (ABNORMAL) Urinalysis, Complete, with Reflex to Culture (08/01/2025 4:32 AM EDT) Only the most recent of2 resultswithin the time period is included. Color Urine Yellow [facility] Appearance Urine Cloudy [facility] PH 6.5 5.0 - 9.0 [facility] Glucose Urine UA Negative Negative mg/dL [facility] Urine Blood Negative Negative [facility] Specific River - Urine 1.015 1.005 - 1.025 [facility] Urine Protein Negative Neg-Trace mg/dL [facility] Urine Ketones Negative Negative mg/dL [facility] Nitrite Urine Negative Negative [facility] Leukocyte Esterase Urine Large (3+)(A) Negative [facility] RBC Urine 0-2 0 - 2 /HPF [facility] Urine WBC >50(A) 0 - 5 /HPF [facility] Urine Squamous Epithelial Cell 6-10 0 - 2 /HPF [facility] Urine Bacteria None Seen None Seen [facility] Hyaline Casts, Urine 0-2 0 - 2 /LPF [facility] 08/01/2025 4:32 AM EDT 08/01/2025 4:36 AM EDT Narrative [facility] - 08/01/2025 4:45 AM EDT [id number], Clean Catch us Generic External Data Provider LAB URINE ORDERAB LES Final Result [facility] [address] [place] [phone] * (ABNORMAL) CBC auto differential (08/01/2025 4:32 AM EDT) Only the most recent of2 resultswithin the time period is included. White Blood Count 6.7 4.8 - 10.8 X10*3/uL [facility] Red Blood Count 4.00(L) 4.20 - 5.50 X10*6/uL [facility] Hemoglobin 11.3(L) 12.0 - 16.0 g/dl [facility] Hematocrit 33.9(L) 37.0 - 47.0 % [facility] Mean Corpuscular Volume 84.8 80.0 - 98.0 fL [facility] Mean Corpuscular Hemoglobin 28.3 27.0 - 33.0 pg [facility] Mean Corpuscular HGB Conc 33.3 31.0 - 35.0 g/dl [facility] Red Cell Distribution Width 13.3 11.0 - 16.0 % [facility] Platelet Count 189 160 - 400 X10*3/uL [facility] Mean Platelet Volume 10.2 9.4 - 12.3 fL [facility] Neutrophils Percent Auto 75.9(H) 45 - 73 % [facility] Imm Gran Pct Auto 0.3 0.0 - 0.4 % [facility] Lymphocytes Percent Auto 16.4(L) 20 - 40 % [facility] Monocytes Percent Auto 6.9 2 - 11 % [facility] Eosinophils Percent Auto 0.3 0 - 4 % [facility] Basophils Percent Auto 0.2 0 - 2 % [facility] NRBC Pct Auto 0.0 0.0 - 0.2 /100WBC [facility] Neutrophils Absolute Auto 5.1 2.0 - 8.3 x10*3/uL [facility] Imm Gran Abs Auto 0.02 0.00 - 0.03 X10*3/uL [facility] Lymphocytes Absolute Auto 1.1(L) 1.2 - 4.9 X10*3/uL [facility] Monocytes Absolute Auto 0.5 0.1 - 1.2 X10*3/uL [facility] Eosinophils Absolute Auto 0.0 0.0 - 0.4 X10*3/uL [facility] Basophils Absolute Auto 0.0 0.0 - 0.2 X10*3/uL [facility] NRBC Abs Auto 0.000 0.0 - 0.012 X10*3/uL [facility] 08/01/2025 4:32 AM EDT 08/01/2025 4:36 AM EDT us Generic External Data Provider LAB BLOOD ORDERAB LES Final Result Performing Organization Address [facility]/ZIP Co de Phone Number [facility] [address] [place] [phone] * Magnesium (08/01/2025 4:32 AM EDT) Magnesium 1.7 1.6 - 2.6 mg/dL [facility] 08/01/2025 4:32 AM EDT 08/01/2025 4:36 AM EDT us Generic External Data Provider LAB BLOOD ORDERAB LES Final Result Performing Organization Address [facility] Co de Phone Number [facility] [address] [place] [phone] * Lipase (08/01/2025 4:32 AM EDT) Only the most recent of2 resultswithin the time period is included. Lipase 61 8 - 78 U/L [facility] 08/01/2025 4:32 AM EDT 08/01/2025 4:36 AM EDT us Generic External Data Provider LAB BLOOD ORDERAB LES Final Result [facility] [address] [place] [phone] * (ABNORMAL) Comprehensive Metabolic Panel (08/01/2025 4:32 AM EDT) Only the most recent of2 resultswithin the time period is included. Sodium 143 135 - 145 mmol/L [facility] Potassium 4.4 3.3 - 5.1 mmol/L [facility] Chloride 108 96 - 108 mmol/L [facility] Carbon Dioxide 28 22 - 29 mmol/L [facility] Anion Gap 11(L) 12 - 20 [facility] Urea Nitrogen (BUN) 10 9 - 16 mg/dL [facility] Creatinine, Serum 0.56 0.5 - 1.4 mg/dL [facility] Creatinine Clr Calc Pharmacy 94.5 [facility] Comment:Provided height and weight: 152.4 cm,83.3 kg.eGFR (calculated from the MDRD study equation) and eCrCl(calculated from the Cockcroft-Gault equation) are based ondifferent parameters and may not yield comparable results.If eCrCl result is absurd, please check patient'sheight/weight. Estimated Glomerular Filt Rate >60 [facility] Comment:Chronic Kidney Disea se: Estimated GFR < 60 mL/min/1.14l2Errbmy Kidney Disease: Estimated GFR < 15 mL/min/1.73m2 Glucose 117(H) 60 - 115 mg/dL [facility] Calcium 8.7 8.4 - 10.2 mg/dL [facility] Bilirubin, Total 0.3 0.0 - 1.0 mg/dL [facility] Aspartate Amino Transferase 27 5 - 31 U/L [facility] Alanine Aminotransferase 20 0 - 31 U/L [facility] Total Protein 6.5 6.5 - 8.0 g/dL [facility] Albumin Level 3.7 3.5 - 5.0 g/dL [facility] Alkaline Phosphatase 80 39 - 117 U/L [facility] 08/01/2025 4:32 AM EDT 08/01/2025 4:36 AM EDT Generic External Data Provider LAB BLOOD ORDERAB LES Final Result Performing Organization Address [facility]/ZIP Co de Phone Number [facility] [address] [place] [phone] * Culture, Urine, Routine (08/01/2025 12:00 AM EDT) Only the most recent of2 resultswithin the time period is included. Urine Urine specimen obtained by clean catch procedure / Unknown 08/01/2025 08/01/2025 Comment:UACC Narrative [facility] - 08/02/2025 10:43 AM EDT Urine Culture Report Result Urine Culture < 10,000 cfu/ml Specimen Source: Urine clean catch Generic External Data Provider LAB MICROBIOLOGY - GENERAL ORDERABLES Final Result Performing Organization Address [facility] Co de Phone Number [facility] [address] [place] [phone] * (ABNORMAL) SARS-CoV-2 RNA, Influenza A/B, and RSV RNA, Ql NAAT (07/10/2025 10:40 AM EDT) Only the most recent of2 resultswithin the time period is included. Influenza A PCR NEGATIVE Negative [facility] Influenza B PCR NEGATIVE Negative [facility] Resp Syncy Virus RNA Qual PCR NEGATIVE Negative [facility] SARS COV2 PCR POSITIVE(A) Negative [facility] Comment:All test results mus t [...] use by authorized laboratories.Testing performed on the [employer] GeneXpert utilizingreal-time RT-PCR.All SARS CoV2 and positive influenza A/B results arereported to [facility]. 07/10/2025 10:4 0 AM EDT 07/10/2025 1:26 PM EDT us Generic External Data Provider LAB MICROBIOLOGY - GENERAL ORDERABLES Final Result [facility] [address] [place] [phone] * (ABNORMAL) Lipid Panel, Standard (04/06/2025 10:19 AM EDT) Triglycerides 74 <150 mg/dL [facility] Comment:Desirable Triglyceri de: less than 150 mg/dLBorderline High Triglyceride 150-199 mg/dLHigh Triglyceride: 200-499 mg/dLVery High Triglyceride: greater than or equal to 5OO mg/dL Cholesterol 115 <200 mg/dL [facility] Comment:Desirable Cholestero l: less than 200 mg/dLBorderline High Cholesterol: 200-239 mg/dLHigh Cholesterol: greater than 239 mg/dL LDL Cholesterol Calculated 61 <100 mg/dL [facility] Comment:Desirable LDL: less than 100 mg/dLNear Optimal/Above Optimal LDL: 110- 129 mg/dLBorderline High LDL: 130-159 mg/dLHigh LDL: 160-189 mg/dLVery High LDL: greater than or equal to 190 mg/dL HDL Cholesterol 40(L) >40 mg/dL [facility] Comment:Desirable HDL: great er than 40 mg/dL Note: This HDL assay may give artificially low results in patients with liver disease. Blood Venous blood specimen / Unknown 04/06/2025 10:19 AM EDT 04/06/2025 11:05 AM EDT us Lorene Lugo DO LAB BLOOD ORDERABLES Final R esult [facility] [address] [place] [phone] * BI Mammogram Screening Tomosynthesis Bilateral (09/15/2024 9:52 AM EDT) Anatomical Region Laterality Modality Breast Bilateral Mammography 09/15/2024 9:52 AM EDT Narrative 09/27/2024 12:30 PM EDT [address] [place] [address] Mammography Report Signed with Addenda Patient: Cheryl Samson I MR#: [id number] 96 : 1960 Acct:[id number] Age/Sex: 63 / F ADM Date: 09/15/24 Loc: HOJamieMAMMO Attending Dr: Lorene Lugo DO Ordering Physician: Lorene Lugo DO Results: 1N egative Date of Service: 09/15/24 Follow Up: 1 Year From [facility] Mammogram Procedure(s): MM tomosynthesis screening BI Accession Number(s): [id number] cc: Lorene Lugo DO ADDENDUM ADDENDUM #1 [...] 09/27/24 1227 DD/ 0952 TD/TT: 09/15/24 1010 Tea Leaf Reader: Procedure Note Donotuseinterpreter, Image - 09/30/2024 [facility] [address] [place], [place] [address] Mammography Report Signed with Addenda Patient: Cheryl Samson IMR#: [id number] [birth year] : 9Acct:[id number] Age/Sex: 63 / FADM Date: 09/15/24 Loc: HO.MAMMO Attending Dr: Lorene Lugo DO Ordering Physician: Lorene Lugoults: 1N egative Date of Service: 09/15/24Follow Up: 1 Year From Orig inal Mammogram Procedure(s): MM tomosynthesis screening BI Accession Number(s): [id number] cc: Lorene Lugo DO ADDENDUM ADDENDUM #1 [...] 09/27/24 1227 DD/ 1 TD/TT: 09/15/24 101 Tea Leaf Reader: Lorene Lugo DO IMG BI PROCEDURES Edited Res ult - Final * (ABNORMAL) Cologuard?? colon cancer screening (03/04/2024 3:00 PM EDT) Cologuard Result Positive( A) Negative 03/10/2024 10:28 AM EDT [employer] (CLIA #:[id number]) Comment: POSITIVE TEST RESULT. A positive Cologuard [...] (Dominique Otto al, N Engl J Med 2014;370(14):5958-1529.) Cologuard may produce a false negative or false positive result (no colorectal cancer or precancerous polyp present at colonoscopy follow up). A negative Cologuard test result does not guarantee the absence of CRC or advanced adenoma (pre-cancer). The current Cologuard screening interval is every 3 years. ([place] [employer] and U.S. Multi-Society Task Force). Cologuard performance data in a 10,000 patient pivotal study using colonoscopy as the reference method can be accessed at the following location: www.[employer] ([employer])/results. Additional description of the Cologuard test process, warnings and precautions can be found at [email or web address]. Stool specimen (specimen) 03/04/2024 3:00 PM EDT 03/05/2024 11:39 AM EDT Lorene Lugo DO LAB MOLECULAR DIAGNOSTICS OR DERABLES Final Result Performing Organization Address City/[facility]/ZIP Co de Phone Number [employer] (CLIA #:[id number]) [place] [address], * Hepatitis C Antibody with Reflex to HCV RNA,PCR w/Reflex to Genotype, LiPA (01/23/2023 8:47 AM EST) Hepatitis C Antibody NON-REACT MARCE NON-REACT MARCE [employer]t Index <0.02 <1.00 [facility] [place] [facility] Comment: HCV antibody was non-reactive. There is no laboratory evidence of HCV infection. In most cases, no further action is required. However, if recent HCV exposure is suspected, a test for HCV RNA (test code 34346) is suggested. For additional information, please refer to http://education.NemeriX/faq/EKE161 (This link is being provided for informational/ educational purposes only.) 01/23/2023 8:47 AM EST 01/23/2023 8:48 AM EST Narrative [facility] - 01/24/2023 6:35 PM EST FASTING:YES FASTING: YES Lorene Lugo DO LAB BLOOD ORDERABLES Final R esult Performing Organization Address City/[facility]/ZIP Co de Phone Number [facility] [address], [place] [address] [employer] [place] [facility] [employer] 200 [facility], (Nl2) [place] [address] * Thinprep PAP, HPV mRNA E6/E7 RFX HPV 16,18/45, Chlamydia/N. Gonorrhoeae (01/16/2023 10:19 AM EST) Clinical Information: SREENIN PAP [employer] [place] [employer] [facility] LMP: NONE GIVEN [employer] [facility] Prev. PAP: YES [employer] [facility] Prev. BX: NO [employer] [place] [facility] [facility] SOURCE: Cervix [employer] [place] [employer] Statement Of Adequacy: SATISFACTORY FOR EVALUATION Partially obscuring inflammation [facility] [employer] [place] Interpretation/Re sult: [employer] [place] [employer] Comment: Negative for intraepithelial lesion or malignancy. Atrophic pattern; predominantly parabasal cells Organ Tuner: Quir[facility] [employer] [place] [employer] Comment: KR, CT(ASCP) CT screening location: [address] [address] (Always Message) Que [employer] [place] [employer] Comment: EXPLANATORY NOTE: The Pap is a [...] HPV nRNA E6/E7 Not Detected Not Detected [employer] [place] [employer] Comment: Methodology: [employer] Machine Operator-Mediated Amplification This assay detects E6/E7 viral messenger RNA (mRNA) from 14 high-risk HPV types (16,18,31,33,35,39,45,51,52,56,58,59,66,68). Cervical sources are required for HPV testing. If a vaginal source from a patient who has had a total hysterectomy with removal of cervix was submitted, please contact the testing laboratory for alternative testing options. For additional information, please refer to http://Webspy.IASO [employer]arma/faq/VHG201y6 (This link if provided for information/ educational purposes only.) Chlamydia trachomatis RNA, TMA, Urogenital NOT DETECTED NOT DETECTED [employer] [place] [facility] [employer] Neisseria gonorrhoeae RNA, TMA, Urogenital NOT DETECTED NOT DETECTED [employer] [place] [facility] [facility] Comment [employer] [place] [employer] Comment: The analytical performance characteristics of this assay, when used to test SurePath(TM) specimens have been determined by [employer]. The modifications have not been cleared or approved by the FDA. This assay has been validated pursuant to the CLIA regulations and is used for clinical purposes. For additional information, please refer to https://Webspy.[employer]/faq/CDR008 (This link is being provided for information/ educational purposes only.) Specimen from uterine cervix (specimen) 01/16/2023 10:19 AM EST 01/19/2023 12:52 AM EST Lorene Lugo DO LAB PATHOLOGY ORDERABLES Fin al Result [facility] 200 [facility] [place] [address] [employer] [facility] 200 [facility], (Nl2) [place] [address] * Colonoscopy (12/13/2014) Colonoscopy Normal Normal Comment:Hyperplastic polyps 10yr 12/13/2014 Lauro Paredes MD HEALTH MAINTENANCE Final Res ult from Last 3 Months or Most Recently Relevant to Health Maintenance Insurance [facility] CUSTODIAL OPTIONS (O D-SNP) [place] [phone] Care Teams Applications Chemist Relationship Specialty Start Date End Date Lorene Lugo DO [address] [place] [address] PCP - General Family Medicine 11/30/18
--- OUTSIDE RECORDS SUMMARY | 2025-09-21 11:30 | XMS_ITS | Encounter Summary ---
Author Organization [employer] Address 75 [facility] 7t [place] [address] Care Team Providers Care Food Order Expediter Name Role Phone Lorene Lugo DO Primary Care Provider Keiko Bowman PharmD Unavailable [phone] Reason for Visit * Reason Comments Med Refill Encounter Details Date Type Department Care Team ([facility] st Contact Info) Description 07/13/2024 Refill [facility] CHC MED & PEDS [address] [place], [place] [phone] Ximena Florez FNP 505 [place], [place] [phone] Social History Tobacco Use Types Packs/Day Years [...] documented as of this encounter Care Teams Food Order Expediter Relationship Specialty Start Date End Date Lorene Lugo DO 230 [place] [address] PCP - General Family Medicine 11/30/18 Puia, Keiko, PharmD 230 [place] [address] Pharmacist Internal Medicine 06/19/23 04/09/25 documented as of this encounter
--- OUTSIDE RECORDS SUMMARY | 2025-09-21 11:30 | XMS_ITS | Encounter Summary ---
Author Organization [employer] Address 75 [facility] 7t [place] [address] Care Team Providers Care Slate Splitter Name Role Phone Lorene Lugo DO Primary Care Provider Keiko Bowman PharmD Unavailable [phone] Reason for Visit * Reason Onset Date Comments Appointment Request 02/01/2024 Encounter Details Date Type Department Care Team (Late st Contact Info) Description 02/01/2024 Telephone [facility] MEDICINE 230 [place], [place] [phone] Lorene Lugo DO 230 [place], [place] [phone] Appointment Request Social History Tobacco Use Types [...] a DM follow up appt with PCP. Scrum Master verify notes from last visit on 08/25/2023 pcp put appt should be around 12/25 but we can't schedule [place] appts. Scrum Master advised someone will be calling to schedule [...] documented as of this encounter Care Teams Slate Splitter Relationship Specialty Start Date End Date Lorene Lugo DO 230 [place] [address] PCP - General Family Medicine 11/30/18 Keiko Bowman PharmD 230 [place] [address] Pharmacist Internal Medicine 06/19/23 04/09/25 documented as of this encounter
--- OUTSIDE RECORDS SUMMARY | 2025-09-21 11:30 | XMS_ITS | Clinical Summary ---
Author Organization 175 [facility] Address [address] [place] [address] Phone Care Team Providers Care Ditch Rider Name Role Phone Lorene Lugo DO Primary Care Provider [phone] Allergies Active Allergy Reactions Criticality Noted Date Comments Gooy Inhibitors Cough 08/31/2025 Ibuprofen 04/12/2025 Medications alcohol swabs pads, medicated 5 Active omeprazole (PRILOSEC) 20 mg tablet,delayed release (DR/EC) Take 1 tablet (20 mg total) by mouth. 5 Active Essential Woman 50 Plus 0.4-250 mg-mcg tablet Take 1 tablet by mouth 1 (one) time each day in the morning. 4 Active losartan (COZAAR) 50 mg tablet Take 1 tablet (50 mg total) by mouth 1 (one) time each day. 3 Active FreeStyle Lancets 28 gauge lancets USE TO TEST BLOOD SUGAR TWICE DAILY 5 Active gabapentin (NEURONTIN) 100 mg capsule Take 1 capsule (100 mg total) by mouth. 5 08/28/20 26 Active fluticasone propionate (FLONASE) 50 mcg/actuation nasal spray SHAKE LIQUID AND USE 1 SPRAY IN EACH NOSTRIL EVERY 12 HOURS 5 Active famotidine (PEPCID) 20 mg tablet Take 1 tablet (20 mg total) by mouth once daily as needed. 5 04/05/20 26 Active empagliflozin (JARDIANCE) 10 mg tablet Take 1 tablet (10 mg total) by mouth daily. Active Trulicity 3 mg/0.5 mL pen injector injection ADMINISTER 3 MG UNDER THE SKIN 1 TIME EVERY WEEK 5 Active docusate sodium (COLACE) 50 mg capsule Take 2 capsules (100 mg total) by mouth daily. Active diclofenac (VOLTAREN) 1 % topical gel Apply topically to affected areas twice daily Active cholecalciferol (VITAMIN D-3) 50 mcg (2,000 unit) tablet Take 1 tablet (2,000 Units total) by mouth 1 (one) time each day. Active cetirizine (ZyrTEC) 10 mg tablet Take 1 tablet (10 mg total) by mouth 1 (one) time each day in the morning. Active Encounters Date Type Department Care Team Description 09/06/2025 8:28 AM EDT - 09/06/2025 11:59 PM EDT Hospital Encounter [facility] MRI [address] [place] [phone] Disorder of ligament of right foot Discharge Disposition: Home or Self Care 08/31/2025 8:15 AM EDT Office Visit Orthopedic Surgery [facility] [address] [phone] Eleuterio Santiago DPM Disorder of ligament of right foot (Primary Dx); Plantar fascial fibromatosis; Calcaneal spur, right foot; Neuritis 07/20/2025 10:45 AM EDT Office Visit Orthopedic [place] [address] [phone] Eleuterio Santiago DPM Disorder of ligament of right foot (Primary Dx); Plantar fascial fibromatosis; Calcaneal spur, right foot; Neuritis; Diabetic mononeuropathy simplex ([facility] V24, [facility] V28) 06/22/2025 Lab Requisition [facility] - Main Lab 299 [facility] [place] [phone] Shant Kohler, PA Calculus of kidney from Last 3 [...] Care Team (Late st Contact Info) Description 10/02/2025 8:15 AM EST Office Visit Orthopedic Surgery - [place] [address] [phone] Eleuterio Santiago, DPM [address] [phone] Health Maintenance Due Date Last Done Comments [...] Vaccine ( season) 2025 12/17/2021, 05/30/2021, 05/09/2021 Diabetes: Blood Sugar Control Test (HGBA1C) 02/25/2026 08/28/2025, 04/06/2025, 04/05/2025, Additional history exists Diabetes: Annual GFR (Glomerular Filtration Rate) 08/01/2026 08/01/2025, 07/01/2025, 04/06/2025, Additional history exists Hypertension/CHF/CAD Annual BMP Blood Test 08/01/2026 08/01/2025, 07/01/2025, 04/06/2025, Additional history exists Colorectal Cancer Screening: FIT-DNA [...] Procedure Name Priority Date/Time Associated Diagnosis Comments MR ANKLE WO CONTRAST RIGHT Routine 09/06/2025 9:14 AM EDT Disorder of ligament of right foot PARATHYROID HORMONE INTACT Routine 06/22/2025 2:25 PM EDT Calculus of kidney HEMOGLOBIN A1C Routine 04/22/1999 LIPID PANEL Routine 04/22/1999 from Last 3 Months or Most Recently Relevant to Health Maintenance Results * MR Ankle wo Contrast Right (09/06/2025 9:14 AM EDT) Anatomical Region Laterality Modality Lower Extremities, Ankle Right Magneti c Resonance 09/07/2025 4:16 AM EDT Impressions 09/07/2025 4:25 AM EDT 1. Degenerative changes of the right ankle 2. Insertional posterior tibial tendinosis 3. Achilles tendinosis with Nini deformity and small amount of retrocalcaneal bursal fluid 4. Findings suspicious for stigmata of prior injury to the AITFL and PITFL fibers -------- FINAL REPORT -------- Dictated By: Mandi Fernandez Dictated Date: 09/07/2025 04:16 ET Assigned Physician: Mandi Fernandez Reviewed and Electronically Signed By: Mandi Fernandez Signed Date: 09/07/2025 04:25 ET Workstation ID: [id number] Transcribed By: Self Edit Transcribed Date: 09/07/2025 04:16 ET Narrative 09/07/2025 4:25 AM EDT INDICATION: disorder ligament pain chronic ankle arthritis versus entrapment/irritation of the interosseous ligament. COMPARISON: None TECHNIQUE: Multiplanar, multisequence MRI was performed of the right ankle without intravenous contrast. FINDINGS: Scan sensitivity is degraded due to motion. Bone: No acute fracture or dislocation. Large posterior plantar calcaneal spur. Achilles tendon enthesophyte formation. Osseous trigonum. Degenerative changes with hypertrophic lipping of the medial and lateral tibiotalar articulation as well as hypertrophic lipping of the anterior and posterior tibiotalar articulation as well as the dorsal talonavicular articulation. Cystic change along the anterior process of the calcaneus and along the calcaneonavicular articulation. Os peroneum. Tendons: Peroneus brevis brevis tendinosis. Anterior extensor tendons are intact. Insertional posterior tibial tendinosis. Achilles tendinosis with Nini deformity and small amount of retrocalcaneal bursal fluid. Ligaments:Heterogeneity of the AITFL and PITFL fibers which may represent stigmata of prior injury. ATFL fibers are intact. Heterogeneity of the PTFL fibers. Deltoid and spring ligament complex are intact. Miscellaneous:Thickening of the plantar fascia in keeping with plantaris fasciitis. Sinus Tarsi and tarsal tunnel are unremarkable. Subcutaneous soft tissue edema along the medial and lateral malleoli. Right ankle joint effusion. Procedure Note Mandi Fernandez MD - 09/07/2025 INDICATION: disorder ligament pain chronic ankle arthritis versusentrapment/irritation of the interosseous ligament. COMPARISON: None TECHNIQUE: Multiplanar, multisequence MRI was performed of the right anklewithout intravenous contrast. FINDINGS: Scan sensitivity is degraded due to motion. Bone: No acute fracture or dislocation. Large posterior plantarcalcaneal spur. Achilles tendon enthesophyte formation. Osseoustrigonum. Degenerative changes with hypertrophic lipping of the medialand lateral tibiotalar articulation as well as hypertrophic lipping of theanterior and posterior tibiotalar articulation as well as the dorsaltalonavicular articulation. Cystic change along the anterior process ofthe calcaneus and along the calcaneonavicular articulation. Osperoneum. Tendons: Peroneus brevis brevis tendinosis. Anterior extensor tendons areintact. Insertional posterior tibial tendinosis. Achilles tendinosiswith Nini deformity and small amount of retrocalcaneal bursal fluid. Ligaments:Heterogeneity of the AITFL and PITFL fibers which may representstigmata of prior injury. ATFL fibers are intact. Heterogeneity of thePTFL fibers. Deltoid and spring ligament complex are intact. Miscellaneous:Thickening of the plantar fascia in keeping with plantarisfasciitis. Sinus Tarsi and tarsal tunnel are unremarkable. Subcutaneoussoft tissue edema along the medial and lateral malleoli. Right anklejoint effusion. IMPRESSION: 1. Degenerative changes of the right ankle 2. Insertional posterior tibial tendinosis 3. Achilles tendinosis with Nini deformity and small amount ofretrocalcaneal bursal fluid 4. Findings suspicious for stigmata of prior injury to the AITFL andPITFL fibers -------- FINAL REPORT -------- Dictated By: Mandi Fernandez Dictated Date: 09/07/2025 04:16 ET Assigned Physician: Mandi Fernandez Reviewed and Electronically Signed By: Mandi Fernandez Signed Date: 09/07/2025 04:25 ET Workstation ID: [id number] Transcribed By: Self Edit Transcribed Date: 09/07/2025 04:16 ET Eleuterio Santiago DPM IMG MRI PROCEDURES Final Result * Parathyroid hormone intact (06/22/2025 2:25 PM EDT) PTH 50.1 18.5 - 88.0 pcg/mL LAB CHEMISTRY METHOD 06/22/2025 6:46 PM EDT [facility] LAB Blood Venous blood specimen / Unknown 06/22/2025 2:25 PM EDT 06/22/2025 6:13 PM EDT Shant ANN LAB BLOOD ORDERABLES Final Res ult [facility] LAB [address] [place] [address], * Hemoglobin A1c (04/22/1999) Pathologist [facility] Hemoglobin A1C 6.2 <=6.5 % Blood Venous blood specimen / Unknown Historical Provider LAB BLOOD ORDERABLES Muriel l Result * (ABNORMAL) Lipid panel (04/22/1999) Pathologist [facility] LDL/HDL Ratio 5(A) <=4 Triglycerides 380(A) <=200 mg/dL Cholesterol 203(A) <=200 mg/dL HDL 40 >=34 mg/dL LDL Cholesterol 87 0 - 130 mg/dL Blood Venous blood specimen / Unknown Historical Provider LAB BLOOD ORDERABLES Muriel l Result from Last 3 Months or Most Recently Relevant to Health Maintenance Insurance MEDICARE Member Subscriber Plan / Payer (Ef fective 2024-Present) Name:ALEXANDRA SAMSON Relation to Subscriber:Self Name:Alexandra Samson Payer ID:[id number] Group ID:[id number] Type:Not on file Address: [address] [place] [address] MEDICAID - [place] Care Teams Ditch Rider Relationship Specialty Start Date End Date Lorene Lugo DO [address] [place] [address] PCP - General Family Medicine 11/21/24
--- OUTSIDE RECORDS SUMMARY | 2025-09-21 11:30 | XMS_ITS | Encounter Summary ---
Author Organization [employer] Address 75 [facility] 7t [place] [address] Care Team Providers Care Director Building Name Role Phone Lorene Lugo DO Primary Care Provider [phone] Reason for Visit * Reason Comments Med Refill Encounter Details Date Type Department Care Team (Late st Contact Info) Description 06/28/2025 Refill [facility] MEDICINE [address] [place], [place] [phone] Keiko Bowman, PharmD 230 [place] [address] Type 2 diabetes mellitus with microalbuminuria, without long-term current use of insulin ([facility]); Essential hypertension Social History Tobacco Use Types [...] Result Component 6.1( 9:15 AM EDT) No Dellogono Alo, PharmD Record your blood sugar as directed Result Component On track( 023 9:44 AM EDT) No Puia, Keiko, PharmD documented as of this encounter Visit Diagnoses Diagnosis Type 2 diabetes mellitus with microalbuminuria, without long-term current use of insulin (HCC) Essential hypertension Unspecified essential hypertension documented in this encounter Additional Health Concerns Assessment Noted Time PHQ-9 Depression Total Score: 0 08/25/20 23 9:41 AM EDT documented as of this encounter Care Teams Director Building Relationship Specialty Start Date End Date Lorene Lugo DO [address] [place] [address] PCP - General Family Medicine 11/30/18 documented as of this encounter
--- OUTSIDE RECORDS SUMMARY | 2025-09-21 11:30 | XMS_ITS | Encounter Summary ---
Author Organization [employer] Address 75 [facility] 7t [place] [address] Care Team Providers Care Rough Planer Tender Name Role Phone Lorene Lugo DO Primary Care Provider Keiko Bowman PharmD Unavailable Reason for Visit * Reason Comments Med Refill Encounter Details Date Type Department Care Team ([facility] st Contact Info) Description 08/12/[address] [facility] CHC MED & PEDS [address] [place], [place] [phone] Ximena Florez FNP 505 [place], [place] [phone] Social History Tobacco Use Types Packs/Day Years [...] documented as of this encounter Care Teams Rough Planer Tender Relationship Specialty Start Date End Date Lorene Lugo DO 230 [place] [address] PCP - General Family Medicine 11/30/18 Puia, Keiko, PharmD [address] [place] [address] Pharmacist Internal Medicine 06/19/23 04/09/25 documented as of this encounter
--- OUTSIDE RECORDS SUMMARY | 2025-09-21 11:30 | XMS_ITS | Encounter Summary ---
Author Organization [facility] [employer] Address 75 [facility] 7t [place] [address] Care Team Providers Care Pea Viner Mechanic Name Role Phone Lorene Lugo DO Primary Care Provider Keiko Bowman PharmD Unavailable [phone] Reason for Visit * Reason Comments Med Refill Encounter Details Date Type Department Care Team ([facility] st Contact Info) Description 08/14/2024 Refill [facility] CHC MED & PEDS 505 [place], [place] [phone] Ximena Florez FNP 505 [place], [place] [phone] Social History Tobacco Use Types Packs/Day Years [...] documented as of this encounter Care Teams Pea Viner Mechanic Relationship Specialty Start Date End Date Lorene Lugo DO [address] [place] [address] PCP - General Family Medicine 11/30/18 Puia, Keiko, PharmD [address] [place] [address] Pharmacist Internal Medicine 06/19/23 04/09/25 documented as of this encounter
--- OUTSIDE RECORDS SUMMARY | 2025-09-21 11:30 | XMS_ITS | Encounter Summary ---
Author Organization [employer] Address 75 [facility] 7t [place] [address] Care Team Providers Care Teletypewriter Installer Name Role Phone Lorene Lugo DO Primary Care Provider [phone] PuKeiko guzman PharmD Unavailable [phone] Reason for Visit * Reason Comments Med Refill Encounter Details Date Type Department Care Team (Late st Contact Info) Description 03/30/2025 Refill [facility] MEDICINE 230 [place], [place] [phone] Lorene Lugo DO [address] [place], [place] [phone] Social History Tobacco Use Types Packs/Day Years [...] documented as of this encounter Care Teams Teletypewriter Installer Relationship Specialty Start Date End Date Lorene Lugo DO [address] [place] [address] PCP - General Family Medicine 11/30/18 Puia, Keiko, PharmD [address] [place] [address] Pharmacist Internal Medicine 06/19/23 04/09/25 documented as of this encounter
--- OUTSIDE RECORDS SUMMARY | 2025-09-21 11:30 | XMS_ITS | Encounter Summary ---
Author Organization [facility] Address [address] [place] [address] Care Team Providers Care Loss Prevention Operations Manager Name Role Phone Lorene Lugo DO Primary Care Provider [phone] Encounter Details Date Type Department Care Team (Late Contact Info) Description 06/22/2025 Lab Requisition [facility] - Main Lab 299 [facility] [place] [phone] Shant Kohler, SETH [address] [place] [phone] Calculus of kidney Social History Tobacco Use [...] Department Care Team (Late Contact Info) Description 10/02/2025 8:15 AM EST Office Visit Orthopedic Surgery - [place] [address] [phone] Eleuterio Santiago, DPM [address] [phone] documented as of this encounter Procedures Procedure [...] EDT 06/22/2025 6:13 PM EDT us Shant ANN LAB BLOOD ORDERABLES Final Res ult [facility] LAB [address] [place] [address], documented in this encounter Visit Diagnoses Diagnosis Calculus of kidney documented in this encounter Care Teams Loss Prevention Operations Manager Relationship Specialty Start Date End Date Lorene Lugo DO [address] [place] [address] PCP - General Family Medicine 11/21/24 documented as of this encounter
--- OUTSIDE RECORDS SUMMARY | 2025-09-21 11:30 | XMS_ITS | Encounter Summary ---
Author Organization [employer] Address [address] [place] [address] 7t [place] [address] Care Team Providers Care Trench Digger Helper Name Role Phone Lorene Lugo DO Primary Care Provider Delloghenrietta Alo PharmD Unavailable Unavail able Keiko Bowman PharmD Unavailable Encounter Details Date Type Department Care Team (Late st Contact Info) Description 12/30/2022 Telephone [facility] MEDICINE 230 [place], [place] [phone] Lorene Lugo DO [address] [place], [place] [phone] Social History Tobacco Use Types Packs/Day Years [...] on filedocumented in this encounter Care Teams Trench Digger Helper Relationship Specialty Start Date End Date Lorene Lugo DO 230 [place], [place] [phone] PCP - General Family Medicine 11/30/18 Alo Freitas, PharmD 230 [place] [address] Pharmacist Internal Medicine 02/11/23 06/18/23 Keiko Bowman, Sumit [address] [place] [address] Pharmacist Internal Medicine 06/19/23 04/09/25 documented as of this encounter
== END 2025-09-21 09:56 | disposition home or self-care (01) ==
LOC: HO.MAMMO 09:55
PROVIDERS: PCP Family Medicine; Visit Provider Family Medicine
DX: Z12.31 Encounter for screening mammogram for malignant neoplasm of breast (principal)
CPT/HCPCS: 77063; 77067

== ENCOUNTER → 2025-09-21 10:15 | Outpatient (BNV) | payer OTHER, SELFPAY | PROVIDERS: PCP Family Medicine; Visit Provider Radiology Body Imaging | DX: Z12.31 Encounter for screening mammogram for malignant neoplasm of breast (principal) | CPT/HCPCS: 77063; 77067 ==

== ENCOUNTER → 2025-09-25 09:42 | Outpatient (BNV) | payer OTHER, SELFPAY | PROVIDERS: PCP Family Medicine; Visit Provider Radiology Diagnostic Radiology | DX: R42 Dizziness and giddiness (principal) | CPT/HCPCS: 70551 ==

== ENCOUNTER 2025-09-25 09:50 | Outpatient (REF) | payer OTHER, SELFPAY ==
--- OUTSIDE RECORDS SUMMARY | 2024-04-22 05:10 | XMS_ITS ---
Author Organization [facility] Address [address] [place] [id number] Care Team Providers Care Toll Collector Supervisor Name Role Phone Brittney James, Anna Marie Primary Care Provider Lauro Lock Jr Unavailable REASON FOR VISIT POSITIVE COLOGUARD Encounters Encounter Location Date Provider Diagnosis [facility] Outpatient [address] [place] [id number] 04/22/2024 Lauro Paredes Jr Encounter for screening colonoscopy Z12.11 and Colon polyps K63.5 Assessments Encounter Date Diagnosis (ICD Code) Assessment Notes Treatment Notes Treatment Clinical Notes Section Notes 04/22/2024 Encounter for screening colonoscopy (ICD-10 - Z12.11) 04/22/2024 Colon polyps (ICD-10 - K63.5) Plan Of Treatment No Information Progress Notes * ALEXANDRA FUNEZ IDOB: 9 (64 yo F)Acc No.[id number]:04/22/2024 COLON WITH MAC Patient: ALEXANDRA SERRANO I Provider: Yaw Paredes MD :1960 A ge:63 Y S ex:Female Date:04/22/2024 Address:[address], [id number] Pcp:Anna Marie Lugo M.D. Subjective: * Chief Complaints: * 1 . POSITIVE COLOGUARD. * Medical History: Objective: * Vitals: Assessment: * Assessment: 1. E ncounter for screening colonoscopy - Z12.11 (Primary) 2 . C olon polyps - K63.5 Plan: * Treatment: * Procedure Codes: 4 5385 LESION REMOVAL COLONOSCOPY, 23581 COLONOSCOPY AND BIOPSY, Modifiers: 59 * * The named appointment provid er may or may not be the originator of this progress note, and it is not deemed complete until electronically signed by the appointment provider. Sign off status: Pending * Provider: Yaw Paredes MD Date: 0 04/22/2024 Generated for Mariano knox/Radha/Annitting on: 1 11:21 AM EDT
--- NOTE | ~2025-09-25 | MR_ITS ---
EXAMINATION: MR BRAIN WITHOUT CONTRAST CLINICAL INFORMATION: Recent fall. Off balance sensation. COMPARISON: Correlated to CT dated April 12, 2025. TECHNIQUE: MRI of the brain was obtained using routine sequences without contrast. FINDINGS: Patient's motion artifact. No restricted diffusion. No acute intracranial hemorrhage, mass effect, midline shift, hydrocephalus or herniation. Vega-white matter differentiation is normal. Bilateral, a few, scattered nonspecific deep periventricular white matter hyperintense T2 FLAIR signal, the most conspicuous in the left parietal. Posterior cranial fossa contents demonstrated no signal abnormality or mass effect. Craniocervical junction is intact with normal position of the cerebellar tonsils. Sellar/suprasellar region is normal. Flow-void signal within the main cerebral vessels is normal. Cerebellopontine angle cisterns are normal. The cochlear, vestibule and internal auditory canals No gross signal abnormality. MR/MR head/brain wo con IMPRESSION: No acute or structural brain abnormality. Nonspecific white matter T2 FLAIR signal. Electronically signed by: Jules Devries MD 09/25/2025 10:48 AM EDT
--- OUTSIDE RECORDS SUMMARY | 2025-09-25 11:21 | XMS_ITS | Encounter Summary ---
Author Organization [employer] Address 75 [facility] 7t [place] [address] Care Team Providers Care Bar Steward Name Role Phone Lorene Lugo DO Primary Care Provider Keiko Bowman PharmD Unavailable Reason for Visit * Reason Comments Med Refill Encounter Details Date Type Department Care Team ([facility] st Contact Info) Description 08/14/2024 Refill [facility] MED & PEDS [address] [place], [place] [phone] Ximena Florez FNP [address] [place], [place] [phone] Social History Tobacco Use Types Packs/Day Years [...] documented as of this encounter Care Teams Bar Steward Relationship Specialty Start Date End Date Lorene Lugo DO [address] [place] [address] PCP - General Family Medicine 11/30/18 Puia, Keiko, PharmD [address] [place] [address] Pharmacist Internal Medicine 06/19/23 04/09/25 documented as of this encounter
--- OUTSIDE RECORDS SUMMARY | 2025-09-25 11:21 | XMS_ITS | Encounter Summary ---
Author Organization [employer] Address 75 [facility] [address]t [place] [address] Care Team Providers Care Dairy Technician Name Role Phone Lorene Lugo DO Primary Care Provider [phone] Reason for Visit * Reason Comments Med Refill Encounter Details Date Type Department Care Team (Late st Contact Info) Description 08/30/2025 Refill [facility] CHC MED & PEDS [address] [place] [address] Lorene Lugo DO [address] [place] [address] Type 2 diabetes mellitus with microalbuminuria, without [...] documented as of this encounter Care Teams Dairy Technician Relationship Specialty Start Date End Date Lorene Lugo DO [address] [place] [address] PCP - General Family Medicine 11/30/18 documented as of this encounter
--- OUTSIDE RECORDS SUMMARY | 2025-09-25 11:21 | XMS_ITS | Encounter Summary ---
Author Organization [employer] Address [address] [place] [address] 7t [place] [address] Care Team Providers Care Director Of Promotions Name Role Phone Lorene Lugo DO Primary Care Provider Dellogono, Alo PharmD Unavailable Unavail able Pumegan Keiko PharmD Unavailable [phone] Encounter Details Date Type Department Care Team (Late st Contact Info) Description 01/06/2023 Orders Only [facility] CHC MED & PEDS [address] [place] [address] Lorene Hollingsworth LPN Social History Tobacco Use [...] EDT 08/25/2023 6:40 PM EDT Comment:UACC Narrative [facility] - 08/27/2023 11:24 AM EDT Urine Culture Report Result Urine Culture 10,000 to 50,000 cfu/ml Urine Culture Mixed bacterial meenu characteristic of Urine Culture urogenital contamination. Specimen Source: Urine clean catch Lorene Lugo DO LAB MICROBIOLOGY - GENERAL O RDERABLES Final Result Performing Organization Address [facility] Co de Phone Number [facility] [address] [place] [address] [phone] * (ABNORMAL) BinaxNOW Covid-19 Ag (07/07/2023 1:04 PM EDT) BinaxNOW Covid-19 Ag Positive (A) Negative [facility] Comment:Result reported to Raul [facility].All test results must be correlated with clinical findings.This test has been authorized by the FDA under an EmergencyUse Authorization(EUA)for use by authorized laboratories.Testing performed on the BinaxIntroMapsw Covid-19 Ag Card which eva lateral flow immunoassay. The test does not differentiatebetween the SARS-CoV and SARS-COV-2. 07/07/2023 1:04 PM EDT 07/07/2023 1:34 PM EDT [facility] Exter nal Provider LAB BODY FLUIDS AND STOOLS ORDERABLES Final Result Performing Organization Address [facility] de Phone Number [facility] [address] [place] [address] [phone] documented in this encounter Visit Diagnoses Not on filedocumented in this encounter Care Teams Director Of Promotions Relationship Specialty Start Date End Date Lorene Lugo DO [address] [place] [address] PCP - General Family Medicine 11/30/18 Alo Freitas, PharmD [address] [place] [address] Pharmacist Internal Medicine 02/11/23 06/18/23 Keiko Bowman, Sumit [address] [place] [address] Pharmacist Internal Medicine 06/19/23 04/09/25 documented as of this encounter
--- OUTSIDE RECORDS SUMMARY | 2025-09-25 11:21 | XMS_ITS | Encounter Summary ---
Author Organization [employer] Address 75 [facility] 7t [place] [address] Care Team Providers Care Outside Cutter Hand Name Role Phone Lorene Lugo DO Primary Care Provider Keiko Bowman PharmD Unavailable [phone] Reason for Visit * Reason Comments Med Refill Encounter Details Date Type Department Care Team ([facility] st Contact Info) Description 08/12/2024 Refill [facility] CHC MED & PEDS [address] [place], [place] [phone] Ximena Florez FNP [address] [place], [place] [phone] Social History Tobacco Use Types Packs/Day Years [...] documented as of this encounter Care Teams Outside Cutter Hand Relationship Specialty Start Date End Date Lorene Lugo DO [address] [place] [address] PCP - General Family Medicine 11/30/18 Puia, Keiko, PharmD [address] [place] [address] Pharmacist Internal Medicine 06/19/23 04/09/25 documented as of this encounter
--- OUTSIDE RECORDS SUMMARY | 2025-09-25 11:21 | XMS_ITS | Encounter Summary ---
Author Organization [employer] Address 75 [facility] 7t [place] [address] Care Team Providers Care National Facilities Manager Name Role Phone Lorene Lugo DO Primary Care Provider PuKeiko guzman PharmD Unavailable [phone] Reason for Visit * Reason Comments Med Refill Encounter Details Date Type Department Care Team (Late st Contact Info) Description 02/09/2025 Refill [facility] CHC MED & PEDS [address] [place], [place] [phone] Lorene Lugo DO [address] [place] [address] Healthcare maintenance Social History Tobacco Use Types [...] documented as of this encounter Care Teams National Facilities Manager Relationship Specialty Start Date End Date Lorene Lugo DO [address] [place] [address] PCP - General Family Medicine 11/30/18 Puia, Keiko, PharmD [address] [place] [address] Pharmacist Internal Medicine 06/19/23 04/09/25 documented as of this encounter
--- OUTSIDE RECORDS SUMMARY | 2025-09-25 11:21 | XMS_ITS | Encounter Summary ---
Author Organization [employer] Address 75 [facility] 7t [place] [address] Care Team Providers Care Power Lineman Name Role Phone Lorene Lugo DO Primary Care Provider [phone] PuKeiko guzman PharmD Unavailable Reason for Visit * Reason Onset Date Comments Request For Order(s) 02/22/2024 Encounter Details Date Type Department Care Team ([facility] st Contact Info) Description 02/22/2024 Telephone [facility] [address] [place], [place] [phone] Lorene Lugo DO [address] [place] [address] Request For Order(s) Social History Tobacco Use [...] 3:57 PM EDT TC placed to pt [phone] in regards to below message. Pt reports she has already called [facility] to cancel the colonoscopy. Pt informed [...] not feeling well. Please contact pt at [phone] documented in this encounter Plan of Treatment [...] documented as of this encounter Care Teams Power Lineman Relationship Specialty Start Date End Date Lorene Lugo DO [address] [place] [address] PCP - General Family Medicine 11/30/18 Keiko Bowman PharmD [address] [place] [address] Pharmacist Internal Medicine 06/19/23 04/09/25 documented as of this encounter
--- OUTSIDE RECORDS SUMMARY | 2025-09-25 11:21 | XMS_ITS | Continuity of Care Document ---
Author Organization [place] - [facility], [facility] Address [address] [place] [address] Care Team Providers Care Percussion Welding Machine Operator Name Role Phone ANNA MARIE HUNT Primary Care Provider [phone] Assessment Encounter Date Assessment Date Assessment LastModified by Organization Details LastModified Time 09/22/2025 09/22/2025 Evidence if left septal nasal nipple, dry at this time. Offered cautery today, but She would like to hold off on cautery now. Wants to come back in a few weeks to cauterize at this time. Told her to hold ASA for the day -RV 2 weeks with left septal cautery dlofgrenmd Not available 09/22/2025 13:51:42 Plan of Treatment Reminders Order Date Submit Date Provider Last Modified By Organization Details Last Modified Time Details Appointments Establish ed 15 2024 10:15A Dayana Land, DO Not available Not available Not available Lab None recorded. Referral None recorded. Procedures None recorded. Surgeries None recorded. Imaging None recorded. Medication Orders None recorded. Patient TargetsNo targets recorded. Patient InstructionsNo instructions recorded. Reason for Referral None Reported. Problems Name Problem SNOMED Code Status Onset Date Resolution Date Notes Provider Name and Address Organization Details Recorded Time Tinnitus of vascular origin 631961506 Active 2019 Pulsatile tinnitus, left ear; Note: Date Diagnosed: 06/13/2020 10:12 AM (H93.A2) Not Available [facility] 4 03:24:42 Sensorine ural hearing loss of bilateral ears 512277315 Active 2019 Sensorineu ral hearing loss, bilateral; Note: Date Diagnosed: 06/13/2020 10:28 AM (H90.3) Not Available [facility] 4 03:24:42 Chronic cough 80380799 Active 2021 Chronic cough; Note: Date Diagnosed: 12/12/2021 12:01 PM (R05.3) Not Available [facility] 4 03:24:42 Bleeding from nose 345648921 Active 2021 Epistaxis; Note: Date Diagnosed: 03/10/2022 1:53 PM (R04.0) Not Available [facility] 4 03:24:42 Recurrent bleeding of nose Active 2024 Chapin Land, [address],[place] [address], [place], [address] , [facility] - [facility] 5 08:45:52 Problem Notes None recorded. Medical Equipment None Reported. Allergies Allergen ID Allergen Name Allergen Category Reaction Reaction Severity Criticality Documentation Date Start Date Code Code System Note Provider Name and Address Organization Details Recorded Time 97867 Motrin medicatio n other Not available Not available 04/12/202400833 8 RxNorm React ion: unkno wn, unspe soila d;; Not Available [facility] 4 00:49:42 Medications Name Sig Start Date Stop Date Status Note LastModified by Organization Details LastModified Time aspirin 81mg ec low dose tablets TAKE 1 TABLET BY MOUTH EVERY MORNING 09/22 completed Not Available Not Available Not Available losartan 50 mg tablet active Not Available Not Available Not Available cetirizin e 5 mg-pseudo ephedrine ER 120 mg tablet,ex tended release,1 2hr TAKE 1 TABLET BY MOUTH TWICE DAILY FOR 7 DAYS 09/22 completed Not Available Not Available Not Available atorvasta tin 40 mg tablet TAKE 1 TABLET BY MOUTH EVERY DAY AT BEDTIME 09/22 completed Not Available Not Available Not Available atorvasta tin 80 mg tablet active Not Available Not Available Not Available doxycycli ne hyclate 100 mg capsule 09/22 completed Medicati on ID: [id number] B rand Name: doxycycl ine hyclate Send Method: E-Prescr ibed Sub s Allowed: subs OK Speci al Instruct ion: TAKE 1 CAPSULE BY MOUTH DAILY WITH FOOD Med icationG enericNa me: doxycycl ine hyclate Not Available Not Available Not Available Saline Mist 0.65 % nasal spray aerosol 09/22 completed Medicati on ID: [id number] D uration Value: 14 Prescri bed By Name: LAVONNE Hensley nd Name: Saline Mist Sen d Method: E-Prescr ibed Sub s Allowed: subs OK Speci al Instruct ion: [place] 2 sprays in each nostril TID x 14 days Med icationG enericNa me: Saline Mist Not Available Not Available Not Available cetirizin e 10 mg tablet TAKE 1 TABLET BY MOUTH EVERY MORNING active Not Available Not Available No t Available senna 8.6 mg tablet 02/12 completed Medicati on ID: [id number] D uration Value: 90 Brand Name: senna Se nd Method: E-Prescr ibed Sub s Allowed: subs OK Medic ationGen ericName : senna Not Available Not Available Not Available sucralfat e 100 mg/mL oral suspensio n active Not Available Not Available Not Available sucralfat e 1 gram tablet TAKE 1 TABLET BY MOUTH TWICE DAILY 09/22 completed Not Available Not Available Not Available FreeStyle Lancets 28 gauge USE TO TEST BLOOD SUGAR TWICE DAILY 09/22 completed Not Available Not Available Not Available meclizine 12.5 mg tablet 03/10 completed Medicati on ID: [id number] B rand Name: meclizin e Send Method: E-Prescr ibed Sub s Allowed: subs OK Speci al Instruct ion: TAKE 1 TABLET BY MOUTH THREE TIMES DAILY NEEDED FOR DIZZINES S Medica tionGene ricName: meclizin e Not Available Not Available Not Available metronida zole 500 mg tablet 09/22 completed Medicati on ID: [id number] B rand Name: metronid azole Se nd Method: E-Prescr ibed Sub s Allowed: subs OK Medic ationGen ericName : metronid azole Not Available Not Available Not Available aspirin 81 mg tablet,de layed release TAKE 1 TABLET BY MOUTH EVERY MORNING 09/22 completed Not Available Not Available Not Available amoxicill in 500 mg tablet TAKE 1 TABLET BY MOUTH THREE TIMES DAILY FOR 7 DAYS 09/22 completed Not Available Not Available Not Available baclofen 10 mg tablet 09/22 completed Not Available Not Available Not Available cephalexi n 500 mg capsule TAKE 1 CAPSULE BY MOUTH EVERY 12 HOURS 09/22 completed Not Available Not Available Not Available metronida zole 0.75 % topical cream 03/10 completed Medicati on ID: [id number] B rand Name: metronid azole Se nd Method: E-Prescr ibed Sub s Allowed: subs OK Speci al Instruct ion: APPLY TOPICALL Y TO FACE EVERY DAY IN THE MORNING NEEDED M geetha Fraga Name: metronid azole Not Available Not Available Not Available docusate sodium 100 mg capsule active Not Available Not Available Not Available omeprazol e 20 mg capsule,d elayed release TAKE 1 CAPSULE BY MOUTH TWICE DAILY BEFORE BREAKFAS T AND DINNER active Not Available Not Available No t Available polyethyl arun glycol 3350 17 gram/dose oral powder DISSOLVE AND MIX 17 GM INTO WATER. DRINK ONCE DAILY NEEDED FOR CONSTIPA TION active Not Available Not Available No t Available albuterol sulfate HFA 90 mcg/actua tion aerosol inhaler 03/10 completed Medicati on ID: [id number] B rand Name: albutero l sulfate Send Method: E-Prescr ibed Sub s Allowed: subs CESARIO Thompsoni al Instruct ion: INHALE 2 PUFFS BY MOUTH EVERY 4 TO 6 HOURS NEEDED FOR COUGH WHEEZE OR SHORTNES S OF BREATH M geetha Flakito Name: albutero l sulfate Not Available Not Available Not Available ondansetr on 4 mg disintegr ating tablet DISSOLVE 1 TABLET ON THE TONGUE EVERY 6 HOURS NEEDED FOR NAUSEA OR VOMITING 09/22 completed Not Available Not Available Not Available fluticaso ne propionat e 50 mcg/actua tion nasal spray,ernestine pension SHAKE LIQUID AND USE 1 SPRAY IN EACH NOSTRIL EVERY 12 HOURS active Not Available Not Available No t Available metformin ER 500 mg tablet,ex tended release 24 hr 03/10 completed Medicati on ID: [id number] B rand Name: metformi n Send Method: E-Prescr ibed Sub s Allowed: subs OK Speci al Instruct ion: TAKE 1 TABLET BY MOUTH EVERY EVENING WITH MEALS Me dication GenericN anisa: metformi n Not Available Not Available Not Available sertralin e 50 mg tablet active Not Available Not Available Not Available candesart an 8 mg tablet 12/12 completed Medicati on ID: [id number] D uration Value: 90 Brand Name: balwinder shelton Send Method: E-Prescr ibed Sub s Allowed: subs OK Meghana al Instruct ion: TK 1 T PO QD Medic ationGen ericName : balwinder shelton Not Available Not Available Not Available amoxicill in 875 mg-potass ium clavulana te 125 mg tablet TAKE 1 TABLET BY MOUTH TWICE DAILY FOR 7 DAYS UNTIL FINISHED 09/22 completed Not Available Not Available Not Available Fiber-Lax 625 mg tablet TAKE 1 TABLET BY MOUTH TWICE DAILY active Not Available Not Available No t Available azelaic acid 15 % topical gel 03/10 completed Medicati on ID: [id number] B rand Name: azelaic acid Sen d Method: E-Prescr ibed Sub s Allowed: subs OK Meghana al Instruct ion: APPLY TOPICALL Y TO FACE IN THE EVENING Medicati onGeneri cName: azelaic acid Not Available Not Available Not Available Alcohol Prep Pads USE TWICE DAILY 09/22 completed Not Available Not Available Not Available omega-3 acid ethyl esters 1 gram capsule 02/12 completed Medicati on ID: [id number] D uration Value: 90 Brand Name: omega-3 acid ethyl esters S end Method: E-Prescr ibed Sub s Allowed: subs OK Meghana al Instruct ion: TK 2 CS PO BID Medi cationGe nericNam e: omega-3 acid ethyl esters Not Available Not Available Not Available Essential Woman 50 Plus 0.4 mg-250 mcg tablet TAKE 1 TABLET BY MOUTH EVERY MORNING 09/22 completed Not Available Not Available Not Available FreeStyle Lite Meter kit 03/10 completed Medicati on ID: [id number] B rand Name: FreeStyl e Lite Meter Se nd Method: E-Prescr ibed Sub s Allowed: subs OK Specdevon al Instruct ion: TEST DIRECTED Medicat ionGener icName: FreeStyl e Lite Meter Not Available Not Available Not Available FreeStyle Lite Strips USE TO TEST BLOOD TWICE DAILY 09/22 completed Not Available Not Available Not Available cholecalc iferol (vitamin D3) 50 mcg (2,000 unit) tablet TAKE 1 TABLET BY MOUTH EVERY DAY active Not Available Not Available No t Available A Thru Z Advanced Formula 18 mg-400 mcg tablet 09/22 completed Medicati on ID: [id number] B rand Name: A Thru Z Advanced Formula Send Method: E-Prescr ibed Sub s Allowed: subs OK Speci al Instruct ion: TAKE 1 TABLET BY MOUTH EVERY DAY Medi cationGe nericNam e: A Thru Z Advanced Formula Not Available Not Available Not Available Breo Ellipta 200 mcg-25 mcg/dose powder for inhalatio n 03/10 completed Medicati on ID: [id number] B rand Name: Breo Ellipta Send Method: E-Prescr ibed Sub s Allowed: subs OK Medic ationGen ericName : Breo Ellipta Not Available Not Available Not Available Trulicity 3 mg/0.5 mL subcutane ous pen injector ADMINIST ER 3 MG UNDER THE SKIN 1 TIME EVERY WEEK active Not Available Not Available No t Available BinaxNOW COVID-19 Ag Self Test kit TEST DIRECTED TODAY 09/22 completed Not Available Not Available Not Available Mounjaro 5 mg/0.5 mL subcutane ous pen injector ADMINIST ER 5 MG UNDER THE SKIN 1 TIME EVERY WEEK active Not Available Not Available No t Available Mounjaro 2.5 mg/0.5 mL subcutane ous pen injector ADMINIST ER 2.5 MG UNDER THE SKIN 1 TIME EVERY WEEK 09/22 completed Not Available Not Available Not Available Vitals None Recorded Social History None recorded. Functional Status None recorded. Mental Status None recorded. Family History Nothing Reported. Medical History Condition Response High Cholesterol Y GERD/Reflux Y Gynecological HistoryNo gynecological history recorded. Obstetrics History GPAL:G 0 P 0 0 0 0 Past Encounters Encounter ID Performer Location Encounter Start Date Encounter Closed Date Diagnosis/Indication Diagnosis SNOMED-CT Code Diagnosis ICD10 Code Diagnosis IMO Codes Diagnosis Note [id number] Chapin Land, DO [facility] [address] [address] 09/22/2025 13:27:19 09/22/2025 13:51:40 Recurrent bleeding of nose [id number] 102 R04.0 [id number] We discussed the importance of nasal moisture preventing nosebleeds . Specifical ly we discussed using a saline spray daily, humidifier , and using vaseline/a quaphor/co conut oil with a finger at night applied to the septum. Also encouraged avoidance of nose blowing and to sneeze with their mouth open. If there is an active bleed, I recommende d using Afrin and demonstrat ed applying pressure to the soft part of the nose to hold for 15 seconds while leaning forward. Would repeat this x3 and if continued bleeding would call office or go to nearest ER. If bleeding stops would recommend calling office to set up cauterizat ion. The patient understand s to not use Afrin if they do not have an active bleed. Health Concerns Section Related Observation LastModified by Organization Detai ls LastModified Time None Recorded Concern Status LastModified by Organization Details LastModified Time None Recorded Payers Encounter Date Sequence Insurance Name Policy Number Policy Mills Covered Member ID Mills Member ID Guarantor Name 09/22/2025 1 [facility] - DOS ON OR AFTER 2023 - ONE C[employer] (MEDICARE REPLACEMENT/AD VANTAGE - HMO) Cheryl Samson [id number] Cheryl Samson Notes Date Note Type Note Provider Name and Address Organization Details Recorded Time 09/22/2025 text/html ROS as noted in the HPI The patient presents with concerns of epistaxis. Most recent event was: Laterally: LeftDuration: Lasts minutesFrequency: DailyHx of Bleeding disorder: NoneBlood Thinners: Yes currently usingASAInterventi ons: NoneRecord/Referra l Review: Seen onPreviously seen in our clinic in December 2023 for recurrent epistaxis. At the time was always from the left for a few minutes. Tamponade works. She does not use an anticoagulant. No other bleeding disorders in the family. Was seen by our PA team Chapin Land, [address], [address], [facility] - [facility] 09/22/2025 13:52:03 OBGyn Episode No OBEpisode recorded.
--- OUTSIDE RECORDS SUMMARY | 2025-09-25 11:21 | XMS_ITS | Encounter Summary ---
Author Organization [email or web address] Address [address] [facility] 7t [place] [address] Care Team Providers Care Promotions Specialist Name Role Phone Lorene Lugo DO Primary Care Provider [phone] Encounter Details Date Type Department Care Team (Late st Contact Info) Description 09/21/2025 Orders Only [facility] MEDICINE [address] [place] [address] Lorene Lugo DO [address] [place], [place] [phone] Social History Tobacco Use Types Packs/Day Years [...] Blood Pressure 132/70(2024 9:14 AM EDT) No DellogonoAlo, PharmD Record your blood pressure at least once per week Blood Pressure Worsening(11/2022 9:44 AM EDT) No PuiaNaderKeiko, PharmD Hemoglobin A1c < 7 Result Component 6.1( 9:15 AM EDT) No Delloghenrietta Alo, PharmD Record your blood sugar as directed Result Component On track( 023 9:44 AM EDT) No PuiaNaderEkiko, PharmD documented as of this encounter Procedures Procedure Name Priority Date/Time Associated Diagnosis Comments BI MAMMOGRAM SCREENING TOMOSYNTHESIS BILATERAL Routine 09/21/2025 10:18 AM EDT documented in this encounter Results * BI Mammogram Screening Tomosynthesis Bilateral (09/21/2025 10:18 AM EDT) Anatomical Region Laterality Modality Breast Bilateral Mammography 09/21/2025 10:1 8 AM EDT Narrative 09/24/2025 6:02 PM EDT [facility] [address] [place] [address] Mammography Report Signed Patient: Cheryl Samson I MR#: [id number] 96 : 1960 Acct:[id number] Age/Sex: 64 / F ADM Date: 09/21/25 Loc: HO.MAMMO Attending Dr: Lorene Lugo DO Ordering Physician: Lorene Lugo DO Results: 1N egative Date of Service: 09/21/25 Follow Up: 1 Year From Orig ina Mammogram Procedure(s): MM tomosynthesis screening BI Accession Number(s): [id number] cc: Lorene Lugo DO Reason For Exam: Z12.31 EXAMINATION: MM SCREENING DIGITAL BREAST TOMOSYNTHESIS, BILATERAL CLINICAL INFORMATION: Screening. Asymptomatic. COMPARISON: Comparison made to multiple prior, most recent September 15, 2024, and most remote March 22, 2018. TECHNIQUE: Digital breast tomosynthesis is performed in mediolateral oblique and craniocaudal views along with computer-aided detection (CAD). Synthesized 2D images are generated from the tomosynthesis. FINDINGS: BREAST COMPOSITION: There are scattered areas of fibroglandular density. BILATERAL BREASTS: No significant masses, suspicious calcifications or other abnormalities are seen in either breast. MM/MM tomosynthesis screening BI IMPRESSION: BILATERAL BREASTS: Negative, no mammographic evidence of malignancy. Normal interval follow-up is recommended in 12 months. ASSESSMENT: BI-RADS: Category 1: Negative RECOMMENDATION: Routine annual mammography screening. FOLLOW-UP: 1 year F/U This examination should not preclude the clinical evaluation of a suspicious palpable abnormality. This patient's information was entered into a reminder system with a target due date for their next mammogram. Electronically signed by: Park Russo MD 09/24/2025 05:59 PM EDT Dictated By: Park Russo MD Signed By: <Electronically signed by Park Russo MD in OV> 09/24/25 0211 DD/ 1018 TD/TT: 09/21/25 1023 Steam Fitter Supervisor: Procedure Note Donotuseinterpreter, Image - 09/24/2025 [place] [facility] [address] [place] [address] Mammography Report Signed Patient: Cheryl Samson IMR#: [id number] 96 : 9Acct:[id number] Age/Sex: 64 / FADM Date: 09/21/25 Loc: HO.MAMMO Attending Dr: Lorene Lugo DO Ordering Physician: Lorene Lugoults: 1N egative Date of Service: 09/21/25Follow Up: 1 Year From Orig inal Mammogram Procedure(s): MM tomosynthesis screening BI Accession Number(s): [id number] cc: Lorene Lugo DO Reason For Exam: Z12.31 EXAMINATION: MM SCREENING DIGITAL BREAST TOMOSYNTHESIS, BILATERAL CLINICAL INFORMATION: Screening. Asymptomatic. COMPARISON: Comparison made to multiple prior, most recent September 15, 2024, and most remote March 22, 2018. TECHNIQUE: Digital breast tomosynthesis is performed in mediolateral oblique and craniocaudal views along with computer-aided detection (CAD). Synthesized 2D images are generated from the tomosynthesis. FINDINGS: BREAST COMPOSITION: There are scattered areas of fibroglandular density. BILATERAL BREASTS: No significant masses, suspicious calcifications or other abnormalities are seen in either breast. MM/MM tomosynthesis screening BI IMPRESSION: BILATERAL BREASTS: Negative, no mammographic evidence of malignancy. Normal interval follow-up is recommended in 12 months. ASSESSMENT: BI-RADS: Category 1: Negative RECOMMENDATION: Routine annual mammography screening. FOLLOW-UP: 1 year F/U This examination should not preclude the clinical evaluation of a suspicious palpable abnormality. This patient's information was entered into a reminder system with a target due date for their next mammogram. Electronically signed by: Park Russo MD 09/24/2025 05:59 PM EDT Dictated By: Park Russo MD Signed By: <Electronically signed by Park Russo MD in OV> 09/24/25 1759 DD/ 1018 TD/TT: 09/21/25 1023 Steam Fitter Supervisor: Lorene Lugo DO IMG BI PROCEDURES Edited Res ult - Final documented in this encounter Visit Diagnoses Not on filedocumented in this encounter Additional Health Concerns Assessment Noted Time PHQ-9 Depression Total Score: 0 08/29/20 25 2:16 PM EDT documented as of this encounter Care Teams Promotions Specialist Relationship Specialty Start Date End Date Lorene Lugo DO [address] [place] [address] PCP - General Family Medicine 11/30/18 documented as of this encounter
--- OUTSIDE RECORDS SUMMARY | 2025-09-25 11:21 | XMS_ITS | Encounter Summary ---
Author Organization [employer] Address [address] [facility] [address] [place] [address] Care Team Providers Care Media Strategist Name Role Phone Lorene Lugo DO Primary Care Provider PuKeiko guzman PharmD Unavailable [phone] Reason for Visit * Reason Comments Med Refill Encounter Details Date Type Department Care Team (Late st Contact Info) Description 04/13/2024 Refill [facility] [address] [place], [place] [phone] Lorene Lugo DO [address] [place] [address] Social History Tobacco Use Types Packs/Day Years [...] documented as of this encounter Care Teams Media Strategist Relationship Specialty Start Date End Date Lorene Lugo DO [address] [place] [address] PCP - General Family Medicine 11/30/18 Puia, Keiko, PharmD [address] [place] [address] Pharmacist Internal Medicine 06/19/23 04/09/25 documented as of this encounter
--- OUTSIDE RECORDS SUMMARY | 2025-09-25 11:21 | XMS_ITS | Encounter Summary ---
Author Organization [facility] Address [address] [place] [address] Care Team Providers Care Guard Driver Name Role Phone Lorene Lugo DO Primary Care Provider [phone] Encounter Details Date Type Department Care Team (Late Contact Info) Description 06/22/[address] [facility] Lab [address] [facility] [place] [phone] Shant Kohler, SETH [address] [place] [phone] Calculus of kidney Social History Tobacco Use [...] AM EST Office Visit Orthopedic Surgery - [place] [address] [phone] Eleuterio Santiago, DPM [address] [phone] documented as of this encounter Procedures Procedure Name Priority Date/Time Associated Diagnosis Comments PARATHYROID HORMONE INTACT Routine 06/22/2025 2:25 PM EDT Calculus of kidney documented in this encounter Results * Parathyroid hormone intact (06/22/2025 2:25 PM EDT) PTH 50.1 18.5 - 88.0 pcg/mL LAB CHEMISTRY METHOD 06/22/2025 6:46 PM EDT [facility] Blood Venous blood specimen / Unknown 06/22/2025 2:25 PM EDT 06/22/2025 6:13 PM EDT us [facility] BLOOD ORDERABLES Final Res ult [facility] [address] [place] [address], documented in this encounter Visit Diagnoses Diagnosis Calculus of kidney documented in this encounter Care Teams Guard Driver Relationship Specialty Start Date End Date Lorene Lugo DO [address] [place] [address] PCP - General Family Medicine 11/21/24 documented as of this encounter
--- OUTSIDE RECORDS SUMMARY | 2025-09-25 11:21 | XMS_ITS | Encounter Summary ---
Author Organization [employer] Address [address] [facility] [address]t [place] [address] Care Team Providers Care Stem Sizer Name Role Phone Lorene Lugo DO Primary Care Provider Keiko Bowman PharmD Unavailable Reason for Visit * Reason Onset Date Comments Appointment Request 02/01/2024 Encounter Details Date Type Department Care Team (Late st Contact Info) Description 02/01/2024 Telephone [facility] MEDICINE [address] [place], [place] [phone] Lorene Lugo DO [address] [place], [place] [phone] Appointment Request Social History Tobacco Use Types [...] a DM follow up appt with PCP. Sec Reporting Consultant verify notes from last visit on 08/25/2023 pcp put appt should be around 12/25 but we can't schedule [place] appts. Sec Reporting Consultant advised someone will be calling to schedule [...] documented as of this encounter Care Teams Stem Sizer Relationship Specialty Start Date End Date Lorene Lugo DO [address] [place] [address] PCP - General Family Medicine 11/30/18 Keiko Bowman PharmD [address] [place] [address] Pharmacist Internal Medicine 06/19/23 04/09/25 documented as of this encounter
--- OUTSIDE RECORDS SUMMARY | 2025-09-25 11:21 | XMS_ITS | Encounter Summary ---
Author Organization [employer] Address [address] [facility] 7t [place] [address] Care Team Providers Care Wellness Assistant Name Role Phone Lorene Lugo DO Primary Care Provider PuKeiko guzman PharmD Unavailable [phone] Reason for Visit * Reason Comments Med Refill Encounter Details Date Type Department Care Team (Late st Contact Info) Description 03/30/2025 Refill [facility] MEDICINE [address] [place], [place] [phone] Lorene Lugo DO [address] [place], [place] [phone] Social History Tobacco Use Types Packs/Day Years [...] documented as of this encounter Care Teams Wellness Assistant Relationship Specialty Start Date End Date Lorene Lugo DO [address] [place] [address] PCP - General Family Medicine 11/30/18 Puia, Keiko, PharmD [address] [place] [address] Pharmacist Internal Medicine 06/19/23 04/09/25 documented as of this encounter
--- OUTSIDE RECORDS SUMMARY | 2025-09-25 11:21 | XMS_ITS | Clinical Summary ---
Author Organization [employer] Address [address] [place] [address] [address] [place] [address] Care Team Providers Care Career Technical Education Teacher Name Role Phone Brittney Lorene Primary Care Provider [phone] Allergies Active Allergy Reactions Criticality Noted Date [...] microalbuminuria, without long-term current use of insulin ([facility]),Other hyperlipidemia Take 1 tablet (81 mg) by mouth in the morning. 90 tablet 3 025 Active losartan (Cozaar) 50 MG tabletIndications: Type 2 diabetes mellitus with microalbuminuria, without long-term current use of insulin ([facility]),Essential hypertension Take 1 tablet (50 mg) by mouth Once daily. 90 tablet 025 Active Tirzepatide (Mounjaro) 5 MG/0.5ML solution auto-injectorIndic ations:Type 2 diabetes mellitus with microalbuminuria, without long-term current use of insulin ([facility]) Inject 5 mg under the skin 1 [...] microalbuminuria, without long-term current use of insulin ([facility]),Other hyperlipidemia TAKE 1 TABLET(80 MG) BY MOUTH [...] Encounters Date Type Department Care Team Description 09/21/2025 Orders Only [facility] [address] [place] [phone] Lorene Lugo DO 08/30/2025 Refill [facility] [address] [place] [address] Lorene Lugo DO Type 2 diabetes mellitus with microalbuminuria, without long-term current use of insulin ([facility]) 08/28/2025 9:00 AM EDT Office Visit [address] [address] Lorene Lugo DO Type 2 diabetes mellitus with diabetic microalbuminuria, without long-term current use of insulin ([facility]) (Primary Dx); Essential hypertension; Other hyperlipidemia; Fatty liver; Anxiety; Mitral valve insufficiency, unspecified etiology; Chronic gastroesophageal reflux disease; Chronic constipation; History of nephrolithiasis; Left leg pain; Balance disorder; Healthcare maintenance; Dietary counseling; Exercise counseling; Encounter for immunization 08/28/2025 Travel 08/24/[address] [address] Lorene Lugo DO Call back request 08/22/2025 Telephone [facility] [address] [place] [phone] Lorene Lugo DO Chart Prep 08/21/2025 Patient Outreach [address] [address] Lorene Lugo DO Pre-visit Planning ((Unable to reach for PVP screening, LVM) to be completed in office ) 08/17/2025 Refill [facility] [address] [place] [address] Lorene Lugo DO Type 2 diabetes mellitus with microalbuminuria, without long-term current use of insulin ([facility]) 08/08/2025 Refill [facility] [address] [place] [address] Lorene Lugo DO Type 2 diabetes mellitus with microalbuminuria, without long-term current use of insulin ([facility]); Other hyperlipidemia 08/02/2025 Telephone [facility] [address] [place] [address] Lorene Lugo DO Recall Appointment 08/02/2025 Travel 08/01/2025 Orders Only GENERIC EXTERNAL DATA DEPARTMENT Provider, Generic External Data 07/10/2025 Orders Only GENERIC EXTERNAL DATA DEPARTMENT Provider, Generic External Data 07/01/2025 Orders Only GENERIC EXTERNAL DATA DEPARTMENT Provider, Generic External Data 06/28/2025 Refill [facility] [address] [place] [address] Keiko Bwoman PharmD Type 2 diabetes mellitus with microalbuminuria, without long-term current use of insulin ([facility]); Essential hypertension 06/28/2025 Refill [facility] [address] [place] [address] Lorene Lugo DO from Last 3 Months [...] ( season) 2025 12/17/2021, 05/30/2021, 05/09/2021 Diabetes: Hemoglobin A1C 02/25/2026 025, 04/06/2025, 04/05/2025, Additional history exists Alcohol/Substance Use Screening 04/05/2026 04/05/2025 Lipid Panel 04/06/2026 04/06/2025, 10/01, 11/02/2023, Additional history exists Tobacco Screening 08/28/2026 08/28/2025 Depression Screening 08/29/2026 08/29/2025, 08/29/20 25 SDOH Screening 08/29/2026 08/29/2025 Mammogram 09/21/2026 09/21/2025, 08/30, 09/08/2023, Additional history exists Colorectal Cancer Screening 03/04/2027 [...] Name Priority Date/Time Associated Diagnosis Comments MR BRAIN WO CONTRAST Routine 09/25/2025 9:53 AM EDT Balance disorder BI MAMMOGRAM SCREENING TOMOSYNTHESIS BILATERAL Routine 09/21/2025 10:18 AM EDT POCT GLYCATED HEMOGLOBIN, TOTAL Routine 08/28/2025 9:15 AM EDT Type 2 diabetes mellitus with diabetic microalbuminuria, without long-term current use of insulin ([facility]) POCT GLUCOSE Routine 08/28/2025 9:15 AM EDT Type 2 diabetes mellitus with diabetic microalbuminuria, without long-term current use of insulin ([facility]) XR KUB AND UPRIGHT 2 VIEWS Routine [...] without long-term current use of insulin (CMS/HCC) LAB COLOGUARD COLON CANCER SCREEN Routine 03/04/2024 [...] Relevant to Health Maintenance Results * MR Brain w/o Contrast (09/25/2025 9:53 AM EDT) Anatomical Region Laterality Modality Brain Magnetic Resonan ce 09/25/2025 9:53 AM EDT Narrative 09/25/2025 10:51 AM EDT [address] [address] Magnetic Resonance Report Signed Patient: Cheryl Samson I MR#: [id number] 96 : 1960 Acct:[id number] Age/Sex: 64 / F ADM Date: 09/25/25 Loc: HO.MRI Attending Dr: Lorene Lugo DO Ordering Physician: Lorene Lugo DO Date of Service: 09/25/25 Procedure(s): MR head/brain wo con Accession Number(s): [id number] cc: Lorene Lugo DO Reason for Exam: off balance sensation, recent falls EXAMINATION: MR BRAIN WITHOUT CONTRAST CLINICAL INFORMATION: Recent fall. Off balance sensation. COMPARISON: Correlated to CT dated April 12, 2025. TECHNIQUE: MRI of the brain was obtained using routine sequences without contrast. FINDINGS: Patient's motion artifact. No restricted diffusion. No acute intracranial hemorrhage, mass effect, midline shift, hydrocephalus or herniation. Vega-white matter differentiation is normal. Bilateral, a few, scattered nonspecific deep periventricular white matter hyperintense T2 FLAIR signal, the most conspicuous in the left parietal. Posterior cranial fossa contents demonstrated no signal abnormality or mass effect. Craniocervical junction is intact with normal position of the cerebellar tonsils. Sellar/suprasellar region is normal. Flow-void signal within the main cerebral vessels is normal. Cerebellopontine angle cisterns are normal. The cochlear, vestibule and internal auditory canals No gross signal abnormality. MR/MR head/brain wo con IMPRESSION: No acute or structural brain abnormality. Nonspecific white matter T2 FLAIR signal. Electronically signed by: Jules Devries MD 09/25/2025 10:48 AM EDT Dictated By: Jules Frank MD Signed By: <Electronically signed by Jules Samson MD in OV> 09/25/25 1048 DD/ 0953 TD/TT: 09/25/25 1030 Wireless Telegrapher: Procedure Note Donotuseinterpreter, Image - 09/25/[address] [address] Magnetic Resonance Report Signed Patient: Cheryl Samson IMR#: [id number] 96 : 1960cct:[id number] Age/Sex: 64 / FADM Date: 09/25/25 Loc: HO.MRI Attending Dr: Lorene Lugo DO Ordering Physician: Lorene Lugo DO Date of Service: 09/25/25 Procedure(s): MR head/brain wo con Accession Number(s): [id number] cc: Lorene Lugo DO Reason for Exam: off balance sensation, recent falls EXAMINATION: MR BRAIN WITHOUT CONTRAST CLINICAL INFORMATION: Recent fall. Off balance sensation. COMPARISON: Correlated to CT dated April 12, 2025. TECHNIQUE: MRI of the brain was obtained using routine sequences without contrast. FINDINGS: Patient's motion artifact. No restricted diffusion. No acute intracranial hemorrhage, mass effect, midline shift, hydrocephalus or herniation. Vega-white matter differentiation is normal. Bilateral, a few, scattered nonspecific deep periventricular white matter hyperintense T2 FLAIR signal, the most conspicuous in the left parietal. Posterior cranial fossa contents demonstrated no signal abnormality or mass effect. Craniocervical junction is intact with normal position of the cerebellar tonsils. Sellar/suprasellar region is normal. Flow-void signal within the main cerebral vessels is normal. Cerebellopontine angle cisterns are normal. The cochlear, vestibule and internal auditory canals No gross signal abnormality. MR/MR head/brain wo con IMPRESSION: No acute or structural brain abnormality. Nonspecific white matter T2 FLAIR signal. Electronically signed by: Jules Devries MD 09/25/2025 10:48 AM EDT Dictated By: Jules Frank MD Signed By: <Electronically signed by Jules Samson MDin OV> 09/25/25 1048 DD/ 0953 TD/TT: 09/25/25 1030 Wireless Telegrapher: Lorene Lugo DO IM MRI PROCEDURES Edited Re sult - Final * BI Mammogram Screening Tomosynthesis Bilateral (09/21/2025 10:18 AM EDT) Anatomical Region Laterality Modality Breast Bilateral Mammography 09/21/2025 10:1 8 AM EDT Narrative 09/24/2025 6:02 PM EDT [facility] [address] [place] [address] Mammography Report Signed Patient: Cheryl Samson I MR#: [id number] 96 : 1960 Acct:[id number] Age/Sex: 64 / F ADM Date: 09/21/25 Loc: HO.MAMMO Attending Dr: Lorene Lugo DO Ordering Physician: Lorene Lugo DO Results: 1N egative Date of Service: 09/21/25 Follow Up: 1 Year From Orig inal Mammogram Procedure(s): MM tomosynthesis screening BI Accession Number(s): [id number] cc: Lorene Lugo DO Reason For Exam: [...] 09/24/25 1759 DD/ 1018 TD/TT: 09/21/25 1023 Wireless Telegrapher: Procedure Note Donotuseinterpreter, Image - 09/24/2025 [facility] [address] [place] [address] Mammography Report Signed Patient: Cheryl Samson [facility]#: [id number] 96 : 9Acct:[id number] Age/Sex: 64 / FADM Date: 09/21/25 Loc: HO.MAMMO Attending Dr: Lorene Lugo DO Ordering Physician: Lorene Lugoults: 1N egative Date of Service: 09/21/25Follow Up: 1 Year From Orig ina Mammogram Procedure(s): MM tomosynthesis screening BI Accession Number(s): [id number] cc: Lorene Lugo DO Reason For Exam: [...] 09/24/25 1759 DD/ 1018 TD/TT: 09/21/25 1023 Wireless Telegrapher: Lorene Lugo DO IMG BI PROCEDURES Edited Res ult - Final * (ABNORMAL) POCT Hgb A1c (08/28/2025 9:15 [...] AM EDT Narrative 08/01/2025 5:11 AM EDT [address] [address] XRay Report Signed Patient: Cheryl Samson I MR#: [id number] 96 : 1960 Acct:[id number] Age/Sex: 64 / F ADM Date: 08/01/25 Loc: .ED Attending Dr: Ordering Physician: Denise Garcia Date of Service: 08/01/25 Procedure(s): XR KUB Accession Number(s): [id number] cc: Denise Garcia; Lorene Lugo DO CLINICAL [...] signed by David Connolly MD in OV> 08/01/25509 DD/ 8 TD/TT: 08/01/25508 Wireless Telegrapher: Procedure Note Donotuseinterpreter, Image - 08/01/2025 [place] [address] XRay Report Signed Patient: Cheryl Samson IMR#: [id number] [birth year] : 9Acct:[id number] Age/Sex: 64 / FADM Date: 08/01/25 Loc: HO.ED Attending Dr: Ordering Physician: Denise Garcia Date of Service: 08/01/25 Procedure(s): XR KUB Accession Number(s): [id number] cc: Denise Garcia; Lornee Lugo DO CLINICAL HISTORY: pain 1 view [...] signed by David Connolly MD in OV> 08/01/25509 DD/ 8 TD/TT: 08/01/25508 Wireless Telegrapher: [facility] External Provider IMG XR PROCEDURES Edited Result - Final * (ABNORMAL) Urinalysis, Complete, with Reflex to Culture (08/01/2025 4:32 AM EDT) Only the most recent of2 resultswithin the time period is included. Color Urine Yellow [facility] Appearance Urine Cloudy [facility] PH 6.5 5.0 - 9.0 [facility] Glucose Urine UA Negative Negative mg/dL [facility] Urine Blood Negative Negative [facility] Specific [place] - Urine 1.015 1.005 - 1.025 [facility] Urine Protein Negative Neg-Trace mg/dL [facility] Urine Ketones Negative Negative mg/dL [facility] Nitrite Urine Negative Negative [facility] Leukocyte Esterase Urine Large (3+)(A) Negative [facility] RBC Urine 0-2 0 - 2 /HPF [facility] Urine WBC >50(A) 0 - 5 /HPF [facility] Urine Squamous Epithelial Cell 6-10 0 - 2 /HPF [facility] Urine Bacteria None Seen None Seen [facility] Hyaline Casts, Urine 0-2 0 - 2 /LPF [facility] 08/01/2025 4:32 AM EDT 08/01/2025 4:36 AM EDT Narrative [facility] - 08/01/2025 4:45 AM EDT [id number], Clean Catch us Generic External Data Provider LAB URINE ORDERAB LES Final Result [facility] [address] [place] [phone] * (ABNORMAL) CBC auto differential (08/01/2025 4:32 AM EDT) Only the most recent of2 resultswithin the time period is included. White Blood Count 6.7 4.8 - 10.8 X10*3/uL [facility] Red Blood Count 4.00(L) 4.20 - 5.50 X10*6/uL [facility] Hemoglobin 11.3(L) 12.0 - 16.0 g/dl [facility] Hematocrit 33.9(L) 37.0 - 47.0 % [facility] Mean Corpuscular Volume 84.8 80.0 - 98.0 fL [facility] Mean Corpuscular Hemoglobin 28.3 27.0 - 33.0 pg [facility] Mean Corpuscular HGB Conc 33.3 31.0 - 35.0 g/dl [facility] Red Cell Distribution Width 13.3 11.0 - 16.0 % [facility] Platelet Count 189 160 - 400 X10*3/uL [facility] Mean Platelet Volume 10.2 9.4 - 12.3 fL [facility] Neutrophils Percent Auto 75.9(H) 45 - 73 % [facility] Imm Gran Pct Auto 0.3 0.0 - 0.4 % [facility] Lymphocytes Percent Auto 16.4(L) 20 - 40 % [facility] Monocytes Percent Auto 6.9 2 - 11 % [facility] Eosinophils Percent Auto 0.3 0 - 4 % [facility] Basophils Percent Auto 0.2 0 - 2 % [facility] NRBC Pct Auto 0.0 0.0 - 0.2 /100WBC [facility] Neutrophils Absolute Auto 5.1 2.0 - 8.3 x10*3/uL [facility] Imm Gran Abs Auto 0.02 0.00 - 0.03 X10*3/uL [facility] Lymphocytes Absolute Auto 1.1(L) 1.2 - 4.9 X10*3/uL [facility] Monocytes Absolute Auto 0.5 0.1 - 1.2 X10*3/uL [facility] Eosinophils Absolute Auto 0.0 0.0 - 0.4 X10*3/uL [facility] Basophils Absolute Auto 0.0 0.0 - 0.2 X10*3/uL [facility] NRBC Abs Auto 0.000 0.0 - 0.012 X10*3/uL [facility] 08/01/2025 4:32 AM EDT 08/01/2025 4:36 AM EDT us Generic External Data Provider LAB BLOOD ORDERAB LES Final Result Performing Organization Address [facility] Co de Phone Number [facility] [address] [place] [phone] * Magnesium (08/01/2025 4:32 AM EDT) Pathologist [facility] Magnesium 1.7 1.6 - 2.6 mg/dL [facility] 08/01/2025 4:32 AM EDT 08/01/2025 4:36 AM EDT Generic External Data Provider LAB BLOOD ORDERAB LES Final Result Performing Organization Address [facility] de Phone Number [facility] [address] [place] [phone] * Lipase (08/01/2025 4:32 AM EDT) Only the most recent of2 resultswithin the time period is included. Pathologist [facility] Lipase 61 8 - 78 U/L [facility] 08/01/2025 4:32 AM EDT 08/01/2025 4:36 AM EDT Generic External Data Provider LAB BLOOD ORDERAB LES Final Result Performing Organization Address [facility] de Phone Number [facility] [address] [place] [phone] * (ABNORMAL) Comprehensive Metabolic Panel (08/01/2025 4:32 AM EDT) Only the most recent of2 resultswithin the time period is included. Pathologist [facility] Sodium 143 135 - 145 mmol/L [facility] Potassium 4.4 3.3 - 5.1 mmol/L [facility] Chloride 108 96 - 108 mmol/L [facility] Carbon Dioxide 28 22 - 29 mmol/L [facility] Anion Gap 11(L) 12 - 20 [facility] Urea Nitrogen (BUN) 10 9 - 16 mg/dL [facility] Creatinine, Serum 0.56 0.5 - 1.4 mg/dL [facility] Creatinine Clr Calc Pharmacy 94.5 [facility] Comment:Provided height and weight: 152.4 cm,83.3 kg.eGFR (calculated from the MDRD study equation) and eCrCl(calculated from the Cockcroft-Gault equation) are based ondifferent parameters and may not yield comparable results.If eCrCl result is absurd, please check patient'sheight/weight. Estimated Glomerular Filt Rate >60 [facility] Comment:Chronic Kidney Disea se: Estimated GFR < 60 mL/min/1.33j2Slbdul Kidney Disease: Estimated GFR < 15 mL/min/1.73m2 Glucose 117(H) 60 - 115 mg/dL [facility] Calcium 8.7 8.4 - 10.2 mg/dL [facility] Bilirubin, Total 0.3 0.0 - 1.0 mg/dL [facility] Aspartate Amino Transferase 27 5 - 31 U/L [facility] Alanine Aminotransferase 20 0 - 31 U/L [facility] Total Protein 6.5 6.5 - 8.0 g/dL [facility] Albumin Level 3.7 3.5 - 5.0 g/dL [facility] Alkaline Phosphatase 80 39 - 117 U/L [facility] 08/01/2025 4:32 AM EDT 08/01/2025 4:36 AM EDT us Generic External Data Provider LAB BLOOD ORDERAB LES Final Result [facility] [address] [place] [phone] [phone] * Culture, Urine, Routine (08/01/2025 12:00 AM EDT) Only the most recent of2 resultswithin the time period is included. Urine Urine specimen obtained by clean catch procedure / Unknown 08/01/2025 08/01/2025 Comment:UACC Narrative [facility] - 08/02/2025 10:43 AM EDT Urine Culture Report Result Urine Culture < 10,000 cfu/ml Specimen Source: Urine clean catch Generic External Data Provider LAB MICROBIOLOGY - GENERAL ORDERABLES Final Result Performing Organization Address [facility] Co de Phone Number [facility] [address] [place] [phone] * (ABNORMAL) SARS-CoV-2 RNA, Influenza A/B, and RSV RNA, Ql NAAT (07/10/2025 10:40 AM EDT) Only the most recent of2 resultswithin the time period is included. Influenza A PCR NEGATIVE Negative [facility] Influenza B PCR NEGATIVE Negative [facility] Resp Syncy Virus RNA Qual PCR NEGATIVE Negative [facility] SARS COV2 PCR POSITIVE(A) Negative [facility] Comment:All test results mus [...] use by authorized laboratories.Testing performed on the [employer] GeneXpert utilizingreal-time RT-PCR.All SARS CoV2 and positive influenza A/B results arereported to [facility]. 07/10/2025 10:4 0 AM EDT 07/10/2025 1:26 PM EDT Generic External Data Provider LAB MICROBIOLOGY - GENERAL ORDERABLES Final Result Performing Organization Address [facility]/ZIP Co de Phone Number [facility] [address] [place] [phone] * (ABNORMAL) Lipid Panel, Standard (04/06/2025 10:19 AM EDT) Triglycerides 74 <150 mg/dL [facility] Comment:Desirable Triglyceri de: less than 150 mg/dLBorderline High Triglyceride 150-199 mg/dLHigh Triglyceride: 200-499 mg/dLVery High Triglyceride: greater than or equal to 5OO mg/dL Cholesterol 115 <200 mg/dL [facility] Comment:Desirable Cholestero l: less than 200 mg/dLBorderline High Cholesterol: 200-239 mg/dLHigh Cholesterol: greater than 239 mg/dL LDL Cholesterol Calculated 61 <100 mg/dL [facility] Comment:Desirable LDL: less than 100 mg/dLNear Optimal/Above Optimal LDL: 110- 129 mg/dLBorderline High LDL: 130-159 mg/dLHigh LDL: 160-189 mg/dLVery High LDL: greater than or equal to 190 mg/dL HDL Cholesterol 40(L) >40 mg/dL [facility] Comment:Desirable HDL: great er than 40 mg/dL Note: This HDL assay may give artificially low results in patients with liver disease. Blood Venous blood specimen / Unknown 04/06/2025 10:19 AM EDT 04/06/2025 11:05 AM EDT us Lorene Lugo DO LAB BLOOD ORDERABLES Final R esult [facility] [address] [place] [phone] * (ABNORMAL) Cologuard?? colon cancer screening (03/04/2024 3:00 PM EDT) Cologuard Result Positive( A) Negative 03/10/2024 10:28 AM EDT [facility] (CLIA #:[id number]) Comment: POSITIVE TEST RESULT. A positive Cologuard [...] (Dominique Otto al, N Engl J Med 2014;370(14):1413-8780.) Cologuard may produce a false negative or false positive result (no colorectal cancer or precancerous polyp present at colonoscopy follow up). A negative Cologuard test result does not guarantee the absence of CRC or advanced adenoma (pre-cancer). The current Cologuard screening interval is every 3 years. ([place] [employer] and U.S. Multi-Society Task Force). Cologuard performance data in a 10,000 patient pivotal study using colonoscopy as the reference method can be accessed at the following location: [email or web address]. Additional description of the Cologuard test process, warnings and precautions can be found at [email or web address]. Stool specimen (specimen) 03/04/2024 3:00 PM EDT 03/05/2024 11:39 AM EDT us Lorene Lugo DO LAB MOLECULAR DIAGNOSTICS OR DERABLES Final Result [facility] (CLIA #:[id number]) [address] [place] [address], * Hepatitis C Antibody with Reflex to HCV RNA,PCR w/Reflex to Genotype, LiPA (01/23/2023 8:47 AM EST) Hepatitis C Antibody NON-REACT MARCE NON-REACT MARCE [facility] [place] [facility] Index <0.02 <1.00 [facility] [place] [facility] Comment: HCV antibody was non-reactive. There is no laboratory evidence of HCV infection. In most cases, no further action is required. However, if recent HCV exposure is suspected, a test for HCV RNA (test code 60859) is suggested. For additional information, please refer to http://education.Myreks/faq/GOJ889 (This link is being provided for informational/ educational purposes only.) 01/23/2023 8:47 AM EST 01/23/2023 8:48 AM EST Narrative [facility] 01/24/2023 6:35 PM EST FASTING:YES FASTING: YES Lorene Lugo DO LAB BLOOD ORDERABLES Final R esult [address] [place] [address] [facility] [place] [employer] [address] [place] [address] (Nl2) [place] [phone] * Thinprep PAP, HPV mRNA E6/E7 RFX HPV 16,18/45, Chlamydia/N. Gonorrhoeae (01/16/2023 10:19 AM EST) Clinical Information: SREENIN PAP [facility] [place] [facility] LMP: NONE GIVEN [employer] [facility] Prev. PAP: YES [employer] [facility] Prev. BX: NO [facility] [employer] SOURCE: Cervix [facility] [place] [employer] Statement Of Adequacy: SATISFACTORY FOR EVALUATION Partially obscuring inflammation [facility] Interpretation/Re sult: [facility] Comment: Negative for intraepithelial lesion or malignancy. Atrophic pattern; predominantly parabasal cells Scientist Immunology: [employer] Comment: KR, CT(ASCP) CT screening location: [address] [address] (Always Message) [facility] [employer] [place] [employer] Comment: EXPLANATORY NOTE: The Pap is a [...] HPV nRNA E6/E7 Not Detected Not Detected [facility] [place] [employer] Comment: Methodology: Galvanizing Pot Runner-Mediated Amplification This assay detects E6/E7 viral messenger RNA (mRNA) from 14 high-risk HPV types (16,18,31,33,35,39,45,51,52,56,58,59,66,68). Cervical sources are required for HPV testing. If a vaginal source from a patient who has had a total hysterectomy with removal of cervix was submitted, please contact the testing laboratory for alternative testing options. For additional information, please refer to http://Serena [employer] Lily.Amcom Software/faq/JDC288g7 (This link if provided for information/ educational purposes only.) Chlamydia trachomatis RNA, TMA, Urogenital NOT DETECTED NOT DETECTED [facility] [place] [facility] Neisseria gonorrhoeae RNA, TMA, Urogenital NOT DETECTED NOT DETECTED [employer] Comment [facility] [place] [employer] Comment: The analytical performance characteristics of this assay, when used to test SurePath(TM) specimens have been determined by [facility]. The modifications have not been cleared or approved by the FDA. This assay has been validated pursuant to the CLIA regulations and is used for clinical purposes. For additional information, please refer to https://Serena [email or web address] Lily.Amcom Software/faq/JUI050 (This link is being provided for information/ educational purposes only.) Specimen from uterine cervix (specimen) 01/16/2023 10:19 AM EST 01/19/2023 12:52 AM EST us Lorene Lugo DO LAB PATHOLOGY ORDERABLES Fin al Result [facility] [address], [place] [address] [facility] [place] [employer] [address] [facility], ([address]) [place] [address] * Colonoscopy (12/13/2014) Colonoscopy Normal Normal Comment:Hyperplastic polyps 10yr 12/13/2014 Lauro Paredes MD HEALTH MAINTENANCE Final Res ult from Last 3 Months or Most Recently Relevant to Health Maintenance Insurance [facility] FDC OPTIONS (O D-SNP) [place] [id number] Care Teams Career Technical Education Teacher Relationship Specialty Start Date End Date Lorene Lugo DO [address] [place] [address] PCP - General Family Medicine 11/30/18
--- OUTSIDE RECORDS SUMMARY | 2025-09-25 11:21 | XMS_ITS | Encounter Summary ---
Author Organization [employer] Address [address] [facility] 7t [place] [address] Care Team Providers Care Electron Beam Operator Name Role Phone Lorene Lugo DO Primary Care Provider Keiko Bowman PharmD Unavailable [phone] Reason for Visit * Reason Comments Med Refill Encounter Details Date Type Department Care Team ([facility] st Contact Info) Description 07/13/2024 Refill [facility] CH[facility] MED & PEDS [address] [place], [place] [phone] Ximena Florez FNP [address] [place], [place] [phone] Social History Tobacco Use Types Packs/Day Years [...] documented as of this encounter Care Teams Electron Beam Operator Relationship Specialty Start Date End Date Lorene Lugo DO [address] [place] [address] PCP - General Family Medicine 11/30/18 Puia, Keiko, PharmD [address] [place] [address] Pharmacist Internal Medicine 06/19/23 04/09/25 documented as of this encounter
--- OUTSIDE RECORDS SUMMARY | 2025-09-25 11:21 | XMS_ITS | Encounter Summary ---
Author Organization [employer] Address [address] [facility] 7t [place] [address] Care Team Providers Care Identification Printing Machine Setter Name Role Phone Lorene Lugo DO Primary Care Provider Keiko Bowman PharmD Unavailable [phone] Encounter Details Date Type Department Care Team (Late st Contact Info) Description 12/27/2024 Orders Only [facility] [address] [place] [address] Provider, MD Belinda Social History Tobacco Use [...] track( 023 9:44 AM EDT) No Keiko Bowamn PharmD documented as of this encounter Procedures [...] documented as of this encounter Care Teams Identification Printing Machine Setter Relationship Specialty Start Date End Date Lorene Lugo DO [address] [place] [address] PCP - General Family Medicine 11/30/18 Keiko Bowman, Sumit [address] [place] [address] Pharmacist Internal Medicine 06/19/23 04/09/25 documented as of this encounter
--- OUTSIDE RECORDS SUMMARY | 2025-09-25 11:21 | XMS_ITS | Clinical Summary ---
Author Organization [facility] Address [address] [place] [address] Phone Care Team Providers Care Turret Lathe Set Up Operator Name Role Phone Lorene Lugo DO Primary Care Provider [phone] Allergies Active Allergy Reactions Criticality Noted Date Comments Goyo Inhibitors Cough 08/31/2025 Ibuprofen 04/12/2025 Medications alcohol [...] - 09/06/2025 11:59 PM EDT Hospital Encounter [facility] MRI [address] [place] [phone] Disorder of ligament of right foot Discharge Disposition: Home or Self Care 08/31/2025 8:15 AM EDT Office Visit Orthopedic Surgery [place] [address] [phone] Eleuterio Santiago DPM Disorder of ligament of right foot (Primary Dx); Plantar fascial fibromatosis; Calcaneal spur, right foot; Neuritis 07/20/2025 10:45 AM EDT Office Visit Orthopedic [place] [address] [address] Eleuterio Santiago DPM Disorder of ligament of right foot (Primary Dx); Plantar fascial fibromatosis; Calcaneal spur, right foot; Neuritis; Diabetic mononeuropathy simplex (CMS/HCC V24, CMS/HCC [...] AM EST Office Visit Orthopedic Surgery - [place] [address] [address] Eleuterio Santiago, DPM [address] [address] Health Maintenance Due Date Last [...] EDT Disorder of ligament of right foot HEMOGLOBIN A1C Routine 04/22/1999 LIPID PANEL Routine [...] Signed Date: 09/07/2025 04:25 ET Workstation ID: [id number] Transcribed By: Self Edit Transcribed Date: 09/07/2025 [...] Signed Date: 09/07/2025 04:25 ET Workstation ID: [id number] Transcribed By: Self Edit Transcribed Date: 09/07/2025 04:16 ET Eleuterio Santiago DPM IMG MRI PROCEDURES Final Result * Hemoglobin A1c (04/22/1999) Hemoglobin A1C 6.2 [...] ID:[id number] Group ID:[id number] Type:Not on file Address: [facility] [address] [id number] MEDICAID - [place] Care Teams Turret Lathe Set Up Operator Relationship Specialty Start Date End Date Lorene Lugo DO [address] [place], [place] PCP - General Family Medicine 11/21/24
--- OUTSIDE RECORDS SUMMARY | 2025-09-25 11:21 | XMS_ITS | Patient Health Record ---
Author Organization [facility] Address [address] [place] [address] Care Team Providers Care Network Consultant Name Role Phone Anna Marie Lugo M.D. [...] at 5:00 p.m. the day before the procedure; Duration: 1 day 12/28/2023 Active Dulcolax (colon prep) 5 MG take at 3:00 p.m and 7:00p.m. Orally two tablets twice a day for one day; Duration: 1 day 12/28/2023 Active Fish Oil 1000mg Acti ve Jardiance 10 MG Oral; Duration: 90 Active MiraLax (colon prep) 8.3 ounce ((238) grams mixed with Gatorade or Crystal Light orally begin at 5:00 p.m. the day before the procedure; Duration: 1 day 12/28/2023 Active Doc-Q-Lace 60mg Acti ve Aspirin Low Dose 81 MG Oral; Duration: 90 Active Aspir-81 81mg Active MiraLax Active Multi For Her 50+ - TAKE 1 TABLET BY SIRI TH EVERY MORNING Oral; Duration: 90 Active Sertraline HCl 50 MG Oral; Duration: 90 Active Simvastatin 40mg Act may Atorvastatin Calcium 40 MG Oral; Duration: 90 Active Senna Lax 8.6mg Acti ve Docusate Sodium 100 MG Oral; Duration: 90 Active Candesartan Cilexetil 4mg Active Vitamin D3 50 MCG (1999 UT) Oral; Duration: Active Omeprazole 20mg Acti ve Polyethylene Glycol 3350 17 GM/SCOOP Oral; Duration: 14 Active Colyte with Flavor Packs 240 GM As directed Orally Over the specified time.; Duration: 1 day(s) 03/01/2014 Active Iron Active Cetirizine HCl 10 MG Oral; Duration: 90 Active Losartan Potassium 50 MG Oral; Duration: 90 Active Immunizations Vaccine Route Administration Date Status Comme nts Influenza Unknown 11/30/2023 Administered Problems Problem Type SNOMED Code ICD Code Onset Dates Problem Status W/U Status Risk Notes Problem Constipation (17040635) Constipation, unspecified constipation type (K59.00) Active confirmed Plan Of Treatment Future Test Test Name Order Date COLONOSCOPY 03/01/2014 COLONOSCOPY 12/28/2023 Insurance Providers Payer Name Payer Address Payer Phone Subscriber Number Group Number Insured Name Patient Relationship to Insured Coverage Start Date Coverage End Date [facility] [address] Attn Claims [place] [id number] ALEXANDRA FUNEZ Self - patient is the insured Medical (General) History Medical History History ICD Code Gastroesophageal reflux dise ase, EGD 07/07, no H. pylori or Davila's esophagus. Diabetes type 2 Nephrolithiasis Hyperlipidemia Mitral valve regurgitation Elevated body mass index Colonoscopy 12/14, hyperplastic polyps, t en-year followup Surgical History Surgery Date(Month/Year) tubal ligation
--- OUTSIDE RECORDS SUMMARY | 2025-09-25 11:21 | XMS_ITS | Encounter Summary ---
Author Organization [employer] Address [address] [place] [address] 7t [place] [address] Care Team Providers Care Synthetic Filament Extruder Name Role Phone Lorene Lugo DO Primary Care Provider Delloghenrietta Alo PharmD Unavailable Unavail able Keiko Bowman PharmD Unavailable [phone] Encounter Details Date Type Department Care Team (Late st Contact Info) Description 12/30/2022 Telephone [facility] MEDICINE [address] [place], [place] [phone] Lorene Lugo DO [address] [place], [place] [phone] Social History Tobacco Use Types Packs/Day Years [...] on filedocumented in this encounter Care Teams Synthetic Filament Extruder Relationship Specialty Start Date End Date Lorene Lugo DO [address] [place], [place] [phone] PCP - General Family Medicine 11/30/18 Alo Freitas, PharmD [address] [place] [address] Pharmacist Internal Medicine 02/11/23 06/18/23 Keiko Bowman, Sumit [address] [place] [address] Pharmacist Internal Medicine 06/19/23 04/09/25 documented as of this encounter
--- OUTSIDE RECORDS SUMMARY | 2025-09-25 11:21 | XMS_ITS | Encounter Summary ---
Author Organization [employer] Address [address] [facility] 7t [place] [address] Care Team Providers Care Dental Laboratory Technician Name Role Phone Lorene Lugo DO Primary Care Provider [phone] Reason for Visit * Reason Comments Med Refill Encounter Details Date Type Department Care Team (Late st Contact Info) Description 06/28/2025 Refill [facility] MEDICINE [address] [place], [place] [phone] Keiko Bowman, PharmD [address] [place] [address] Type 2 diabetes mellitus with microalbuminuria, without long-term current use of insulin ([facility]); Essential hypertension Social History Tobacco Use Types [...] documented as of this encounter Care Teams Dental Laboratory Technician Relationship Specialty Start Date End Date Lorene Lugo DO [address] [place] [address] PCP - General Family Medicine 11/30/18 documented as of this encounter
--- OUTSIDE RECORDS SUMMARY | 2025-09-25 11:21 | XMS_ITS | Encounter Summary ---
Author Organization [employer] Address [address] [facility] 7t [place] [address] Care Team Providers Care Electrical Systems Designer Name Role Phone Lorene Lugo DO Primary Care Provider PuKeiko guzman PharmD Unavailable Reason for Visit * Reason Comments Med Refill Encounter Details Date Type Department Care Team (Late st Contact Info) Description 09/24/2024 Refill [facility] CHC MED & PEDS [address] [place], [place] [phone] Lorene Lugo DO [address] [place] [address] Social History Tobacco Use Types Packs/Day Years [...] documented as of this encounter Care Teams Electrical Systems Designer Relationship Specialty Start Date End Date Lorene Lugo DO [address] [place] [address] PCP - General Family Medicine 11/30/18 Puia, Keiko, PharmD [address] [place] [address] Pharmacist Internal Medicine 06/19/23 04/09/25 documented as of this encounter
--- OUTSIDE RECORDS SUMMARY | 2025-09-25 11:21 | XMS_ITS | Encounter Summary ---
Author Organization [employer] Address 75 [facility] 7t [place] [address] Care Team Providers Care Monkey Trainer Name Role Phone Lorene Lugo DO Primary Care Provider Puia, Keiko PharmD Unavailable Reason for Visit * Reason Comments Med Refill Encounter Details Date Type Department Care Team (Late st Contact Info) Description 02/09/2025 Refill [facility] MED[facility] [address] [place], [place] [phone] Puia, Keiko, PharmD [address] [place] [address] Social History Tobacco Use Types Packs/Day Years [...] intended per last CDTM plan) waiting for sampler pickup. This request for 2.5 mg was sent [...] documented as of this encounter Care Teams Monkey Trainer Relationship Specialty Start Date End Date Lorene Lugo DO [address] [place] [address] PCP - General Family Medicine 11/30/18 Keiko Bowman PharmD [address] [place] [address] Pharmacist Internal Medicine 06/19/23 04/09/25 documented as of this encounter
--- OUTSIDE RECORDS SUMMARY | 2025-09-25 11:21 | XMS_ITS | Encounter Summary ---
Author Organization [employer] Address 75 [facility] 7t [place] [address] Care Team Providers Care Landscape Supervisor Name Role Phone Lorene Lugo DO Primary Care Provider PuKeiko guzman PharmD Unavailable Reason for Visit * Reason Comments Med Refill Encounter Details Date Type Department Care Team (Late st Contact Info) Description 12/28/2024 Refill [facility] MEDICINE [address] [place], [place] [phone] Lorene Lugo DO [address] [place], [place] [phone] Social History Tobacco Use Types Packs/Day Years [...] documented as of this encounter Care Teams Landscape Supervisor Relationship Specialty Start Date End Date Lorene Lugo DO [address] [place] [address] PCP - General Family Medicine 11/30/18 Puia, Keiko, PharmD [address] [place] [address] Pharmacist Internal Medicine 06/19/23 04/09/25 documented as of this encounter
--- OUTSIDE RECORDS SUMMARY | 2025-09-25 11:21 | XMS_ITS | Data Portability ---
Author Organization [place] [facility], Allergy Address [address] [facility] [address] [place] [address] Care Team Providers Care Polysilicon Preparation Worker Name Role Phone GILBERT ANNA MARIE Primary Care Provider Assessment Encounter Date Assessment Date Assessment LastModified [...] Details Appointments Establish ed 15 2024 10:15A M Chapin Land, DO Not available Not available Not available Lab None recorded. Referral None recorded. Procedures None recorded. Surgeries None recorded. Imaging None recorded. Medication Orders None recorded. Patient TargetsNo targets recorded. Patient InstructionsNo instructions recorded. Reason for Referral None Reported. Problems Name Problem SNOMED Code Status Onset Date Resolution Date Notes Provider Name and Address Organization Details Recorded Time Tinnitus of vascular origin 344932327 Active 2019 Pulsatile tinnitus, left ear; Note: Date Diagnosed: 06/13/2020 10:12 AM (H93.A2) Not Available [facility] 4 03:24:42 Sensorine ural hearing loss of bilateral ears 701047436 Active 2019 Sensorineu ral hearing loss, bilateral; Note: Date Diagnosed: 06/13/2020 10:28 AM (H90.3) Not Available [facility] 4 03:24:42 Chronic cough 79861573 Active 2021 Chronic cough; Note: Date Diagnosed: 12/12/2021 12:01 PM (R05.3) Not Available [facility] 4 03:24:42 Bleeding from nose 685558837 Active 2021 Epistaxis; Note: Date Diagnosed: 03/10/2022 1:53 PM (R04.0) Not Available [facility] 4 03:24:42 Recurrent bleeding of nose Active 2024 Chapin aLnd, [address] [facility],[place] [address], [place], [address] , [facility] - [facility] 5 08:45:52 Problem Notes None recorded. Medical Equipment None Reported. Allergies Allergen ID Allergen Name Allergen Category Reaction Reaction Severity Criticality Documentation Date Start Date Code Code System Note Provider Name and Address Organization Details Recorded Time 59652 Motrin medicatio n other Not available Not available 04/12/202422250 8 RxNorm React ion: unkno wn, unspe cifie d;; Not Available [facility] 4 00:49:42 Medications Name Sig Start Date [...] mg capsule 09/22 completed Medicati on ID: [id number] B rand Name: doxycycl ine hyclate Send Method: E-Prescr ibed Sub s Allowed: subs OK Speci al Instruct ion: TAKE 1 CAPSULE BY MOUTH DAILY WITH FOOD Med icationG enericNa me: doxycycl ine hyclate Not Available Not Available Not Available Saline Mist 0.65 % nasal spray aerosol 09/22 completed Medicati on ID: [id number] D uration Value: 14 Prescri bed By Name: LAVONNE Hensley nd Name: Saline Mist Sen d Method: E-Prescr ibed Sub s Allowed: subs OK Speci al Instruct ion: [place] 2 sprays in each nostril TID x 14 days Med icationG enericNa me: Saline Mist Not Available Not Available Not Available cetirizin e 10 mg tablet TAKE 1 TABLET BY MOUTH EVERY MORNING active Not Available Not Available No t Available senna 8.6 mg tablet 02/12 completed Medicati on ID: [id number] D uration Value: 90 Brand Name: senna [...] mg tablet 03/10 completed Medicati on ID: [id number] B rand Name: meclizin e Send Method: E-Prescr ibed Sub s Allowed: subs OK Speci al Instruct ion: TAKE 1 TABLET BY MOUTH THREE TIMES DAILY NEEDED FOR DIZZINES S Medica tionGene ricName: meclizin e Not Available Not Available Not Available metronida zole 500 mg tablet 09/22 completed Medicati on ID: [id number] B rand Name: metronid azole Se nd [...] topical cream 03/10 completed Medicati on ID: [id number] B rand Name: metronid azole Se nd [...] aerosol inhaler 03/10 completed Medicati on ID: [id number] B rand Name: albutero l sulfate Send Method: E-Prescr ibed Sub s Allowed: subs CESARIO Kowalski al Instruct ion: INHALE 2 PUFFS BY [...] 24 hr 03/10 completed Medicati on ID: [id number] B rand Name: metformi n Send Method: E-Prescr ibed Sub s Allowed: subs OK Jayi al Instruct ion: TAKE 1 TABLET BY MOUTH EVERY EVENING WITH MEALS Me dication GenericN anisa: metformi n Not Available Not Available Not Available sertralin e 50 mg tablet active Not Available Not Available Not Available candesart an 8 mg tablet 12/12 completed Medicati on ID: [id number] D uration Value: 90 Brand Name: balwinder shelton Send Method: E-Prescr ibed Sub s Allowed: subs CESARIO Kowalski al Instruct ion: TK 1 T PO [...] topical gel 03/10 completed Medicati on ID: [id number] B rand Name: azelaic acid Sen d Method: E-Prescr ibed Sub s Allowed: subs CESARIO murray Instruct ion: APPLY TOPICALL Y TO FACE IN THE EVENING Medicati onGeneri cName: azelaic acid Not Available Not Available Not Available Alcohol Prep Pads USE TWICE DAILY 09/22 completed Not Available Not Available Not Available omega-3 acid ethyl esters 1 gram capsule 02/12 completed Medicati on ID: [id number] D uration Value: 90 Brand Name: omega-3 acid ethyl esters S end Method: E-Prescr ibed Sub s Allowed: subs CESARIO murray Instruct ion: TK 2 CS PO BID Medi cationGe nericNam e: omega-3 acid ethyl esters Not Available Not Available Not Available Essential Woman 50 Plus 0.4 mg-250 mcg tablet TAKE 1 TABLET BY MOUTH EVERY MORNING 09/22 completed Not Available Not Available Not Available FreeStyle Lite Meter kit 03/10 completed Medicati on ID: [id number] B rand Name: FreeStyl e Lite Meter Se nd Method: E-Prescr ibed Sub s Allowed: subs CSEARIO Kowalski al Instruct ion: TEST DIRECTED Medicat ionGener [...] mcg tablet 09/22 completed Medicati on ID: [id number] B rand Name: A Thru Z Advanced Formula Send Method: E-Prescr ibed Sub s Allowed: subs OK Speci al Instruct ion: TAKE 1 TABLET BY MOUTH EVERY DAY Medi cationGe nericNam e: A Thru Z Advanced Formula Not Available Not Available Not Available Breo Ellipta 200 mcg-25 mcg/dose powder for inhalatio n 03/10 completed Medicati on ID: [id number] B rand Name: Breo Ellipta Send Method: [...] History Nothing Reported. Medical History Condition Response GERD/Reflux Y High Cholesterol Y Gynecological HistoryNo gynecological history recorded. Obstetrics History GPAL:G 0 P 0 0 0 0 Past Encounters Encounter ID Performer Location Encounter Start Date Encounter Closed Date Diagnosis/Indication Diagnosis SNOMED-CT Code Diagnosis ICD10 Code Diagnosis IMO Codes Diagnosis Note [id number] Chapin Land, DO [facility] of [address] [address] 09/22/2025 13:27:19 09/22/2025 13:51:40 Recurrent bleeding of nose 0622677514 102 R04.0 [id number] We discussed the importance of nasal moisture [...] by Organization Details LastModified Time None Recorded Advance Directives Directive None Recorded Payers Insurance Date Sequence Insurance Name Policy Number Policy Mills Covered Member ID Mills Member ID Guarantor Name 09/22/2025 1 [facility] - DOS ON OR AFTER 2023 - ONE CARE (MEDICARE REPLACEMENT/AD VANTAGE - HMO) Cheryl Samson [id number] Cheryl Samson Notes Date Note Type Note [...] seen by our PA team Chapin Land, [address] [facility],[address], [address], [facility] - [facility] 09/22/2025 13:52:03 OBGyn Episode No OBEpisode recorded.
== END 2025-09-25 09:51 | disposition home or self-care (01) ==
LOC: HO.MRI 09:50
PROVIDERS: PCP Family Medicine; Visit Provider Family Medicine
DX: R26.89 Other abnormalities of gait and mobility (principal)
CPT/HCPCS: 70551

== ENCOUNTER → 2025-09-27 07:00 | Outpatient (BNV) | payer OTHER, SELFPAY | PROVIDERS: PCP Family Medicine; Visit Provider Internal Medicine | DX: I34.0 Nonrheumatic mitral (valve) insufficiency (principal); I51.7 Cardiomegaly | CPT/HCPCS: 93306 ==

== ENCOUNTER → 2025-09-27 07:53 | Outpatient (REF) | payer OTHER, SELFPAY ==
--- OUTSIDE RECORDS SUMMARY | 2024-04-22 05:10 | XMS_ITS ---
Author Organization [facility] Address [address] [place] [phone] Care Team Providers Care Telephone Information Supervisor Name Role Phone Brittney James, Anna Marie Primary Care Provider Lauro Lock Jr Unavailable [phone] REASON FOR VISIT POSITIVE COLOGUARD Encounters Encounter Location Date Provider Diagnosis [facility] Outpatient [address] [place] [id number] 04/22/2024 Lauro Paredes Jr Encounter for screening colonoscopy Z12.11 and Colon polyps K63.5 Assessments Encounter Date Diagnosis (ICD Code) Assessment Notes Treatment Notes Treatment Clinical Notes Section Notes 04/22/2024 Encounter for screening colonoscopy (ICD-10 - Z12.11) 04/22/2024 Colon polyps (ICD-10 - K63.5) Plan Of Treatment No Information Progress Notes * ALEXANDRA FUNEZ IDOB: 9 (64 yo F)Acc No.[id number]:04/22/2024 COLON WITH MAC Patient: ALEXANDRA SERRANO I Provider: Yaw Paredes MD :1960 A ge:63 Y S ex:Female Date:04/22/2024 Address:[address], [id number] Pcp:Anna Marie Lugo M.D. Subjective: * Chief Complaints: * 1 . POSITIVE COLOGUARD. * Medical History: Objective: * Vitals: Assessment: * Assessment: 1. E ncounter for screening colonoscopy - Z12.11 (Primary) 2 . C olon polyps - K63.5 Plan: * Treatment: * Procedure Codes: 4 5385 LESION REMOVAL COLONOSCOPY, 35298 COLONOSCOPY AND BIOPSY, Modifiers: 59 * * The named appointment provid er may or may not be the originator of this progress note, and it is not deemed complete until electronically signed by the appointment provider. Sign off status: Pending * Provider: Yaw Paredes MD Date: 0 04/22/2024 Generated for Mariano knox/Radha/Annitting on: 1 07:55 AM EDT
--- NOTE | 2025-09-27 07:00 | CA_ITS ---
Transthoracic Echocardiogram Patient (Last, First, Middle): Cheryl Samson I Gender: F Date of : 1960 Age: 64 Procedure Date: 09/27/2025 Procedure Type: Transthoracic Echocardiogram Location: OP Height: 152.4 cm Weight: 81.65 kg BSA: 1.78 m2 Heart Rate: bpm BP: 124 / 90 mmHg Cardiopulmonary Technician: Referring MD: Lorene Lugo DO Symptoms: R26.89 BALANCE DISORDER Study Quality: Adequate ECG Rhythm: Sinus Conclusions: - The left ventricular systolic function is normal. The calculated ejection fraction is 56% by biplane method. - No obvious valvular pathology seen on this study. Findings Left Ventricle Normal left ventricular cavity size. There is mildly increased left ventricular wall thickness. The left ventricular systolic function is normal. The calculated ejection fraction is 56% by biplane method. There is no evidence of regional wall motion abnormalities. Diastolic function is normal for age. Right Ventricle Normal right ventricular cavity size and systolic function. Atria The left atrium is moderately dilated. The right atrium is normal in size. Aortic Valve There is a normal trileaflet aortic valve. There is no aortic valve stenosis. There is no aortic valve regurgitation. Mitral Valve The mitral valve appears normal. There is mild mitral valve regurgitation. There is no mitral valve stenosis. Pulmonic Valve The pulmonic valve is likely normal. Tricuspid Valve Normal tricuspid valve structure. There is trace tricuspid valve regurgitation. There is no evidence of pulmonary hypertension. Great Vessels The asc aorta is normal in size. Venous The inferior vena cava is normal in size and collapses greater than 50% with inspiration. Pericardium/Pleural There is no evidence of pericardial effusion. Prior Study Comparison No significant change compared to prior study dated: 03/22/2024. Recommendations, Care & Conclusions No obvious valvular pathology seen on this study. Measurements 2D Linear Measurements IVSd: 1.23 0.6-0.9/0.6-1.0 cm LVIDd: 3.76 3.9-5.3/4.2-5.9 cm LVIDd Index: 2.11 2.4-3.2/2.2-3.1 cm/m2 LVIDs: 2.50 2.0-3.6 cm LVPWd: 1.22 0.7-1.1 cm Ao Root: 3.10 2.1-3.5 cm LA Diam: 3.60 2.7-3.8/3.0-4.0 cm LAIDs Index: 2.02 1.5-2.3 cm/m2 LV Mass: 193.78 67-162/88-224 g LV Mass Index: 108.86 43-95/49-115 g/m2 LVOT Diam: 2.10 3.0+(-)1.3 cm 2D Systolic Function EF 4C: 57.80 >55% EF 2C: 50.60 >55% EF BiP: 56.30 >55% Mitral Valve MV Pk E: 0.66 MV PK A: 0.73 MV Decel Time: 172.00 E/A: 0.90 E'Lateral: 6.85 E'Medial: 6.31 E/E' Med: 10.40 E/E' Lat: 9.60 PHT: 50.00 MVA PHT: 4.40 Decel [place]: 3.82 Aortic Valve AoV Pk Jared: 1.17 AoV Mn Jared: 0.80 AoV VTI: 0.28 AoV Pk Grad: 5.00 Aov Mn Grad: 3.00 KALEN Cont.VTI: 2.97 LVOT LVOT Pk Jared: 0.88 LVOT Mn Jared: 0.53 LVOT VTI: 0.24 LVOT Pk Grad: 3.00 LVOT Mn Grad: 1.00 LVOT Diam: 2.10 LVOT Area: 3.46 Diastolic Function MV Pk E: 0.66 MV Pk A: 0.73 E/A: 0.90 E'Medial: 6.31 E/E' Med: 10.40 E' Laterial: 6.85 E/E' Lat: 9.60 Right Ventricle TAPSE (mm): 29.00 Tricuspid Valve TR Pk Jared: 2.17 TR Pk Grad: 19.00 RA Press: 3.00 RVSP: 22.00 Great Vessels Aorta Ao Root-2D: 3.10 2.0-3.7 cm Ao Asc: 3.60 2.1-3.4 cm Pulmonary Valve PV Pk Jared: 0.94 Peak PV Grad: 4.00 Updated in Other Vendor System with Status of Final Yfn Kelly MD electronically signed on 09/28/2025 12:00:27 PM with status of Final
--- OUTSIDE RECORDS SUMMARY | 2025-09-27 07:54 | XMS_ITS | Encounter Summary ---
Author Organization [employer] Address [address] [facility] 7t [place] [address] Care Team Providers Care Security Developer Name Role Phone Lorene Lugo DO Primary Care Provider Puia, Keiko PharmD Unavailable Reason for Visit * Reason Comments Med Refill Encounter Details Date Type Department Care Team (Late st Contact Info) Description 02/09/2025 Refill [facility] MEDICINE [address] [place], [place] [phone] Puia, Keiko, PharmD [address] [place] [address] Social History Tobacco Use Types Packs/Day Years [...] intended per last CDTM plan) waiting for sisal picker. This request for 2.5 mg was [...] as of this encounter Care Teams Security Developer Relationship Specialty Start Date End Date Lorene Lugo DO [address] [place] [address] PCP - General Family Medicine 11/30/18 Keiko Bowman PharmD [address] [place] [address] Pharmacist Internal Medicine 06/19/23 04/09/25 documented as of this encounter
--- OUTSIDE RECORDS SUMMARY | 2025-09-27 07:54 | XMS_ITS | Encounter Summary ---
Author Organization [employer] Address [address] [facility] 7t [place] [address] Care Team Providers Care Spinning Room Worker Name Role Phone Lorene Lugo DO Primary Care Provider Keiko Bowman PharmD Unavailable [phone] Encounter Details Date Type Department Care Team (Late st Contact Info) Description 12/27/2024 Orders Only [facility] [address] [place] [address] Provider, MD Belinda Social History Tobacco Use [...] documented as of this encounter Care Teams Spinning Room Worker Relationship Specialty Start Date End Date Lorene Lugo DO [address] [place] [address] PCP - General Family Medicine 11/30/18 Keiko Bowman, Sumit [address] [place] [address] Pharmacist Internal Medicine 06/19/23 04/09/25 documented as of this encounter
--- OUTSIDE RECORDS SUMMARY | 2025-09-27 07:54 | XMS_ITS | Encounter Summary ---
Author Organization [employer] Address [address] [facility] 7t [place] [address] Care Team Providers Care Fundraising Manager Name Role Phone Lorene Lugo DO Primary Care Provider PuKeiko guzman PharmD Unavailable [phone] Reason for Visit * Reason Comments Med Refill Encounter Details Date Type Department Care Team (Late st Contact Info) Description 02/09/2025 Refill [facility] CH[facility] MED & PEDS [address] [place], [place] [phone] Lorene Lugo DO [address] [place] [address] Healthcare maintenance Social History Tobacco Use Types [...] documented as of this encounter Care Teams Fundraising Manager Relationship Specialty Start Date End Date Lorene Lugo DO [address] [place] [address] PCP - General Family Medicine 11/30/18 Puia, Keiko, PharmD [address] [place] [address] Pharmacist Internal Medicine 06/19/23 04/09/25 documented as of this encounter
--- OUTSIDE RECORDS SUMMARY | 2025-09-27 07:54 | XMS_ITS | Encounter Summary ---
Author Organization [employer] Address [address] [facility] [address]t [place] [address] Care Team Providers Care Piston Maker Name Role Phone Lorene Lugo DO Primary Care Provider PuKeiko guzman PharmD Unavailable Reason for Visit * Reason Comments Med Refill Encounter Details Date Type Department Care Team (Late st Contact Info) Description 09/24/2024 Refill [facility] CHC MED & PEDS [address] [place], [place] [phone] Lorene Lugo DO [address] [place] [address] Social History Tobacco Use Types Packs/Day Years [...] documented as of this encounter Care Teams Piston Maker Relationship Specialty Start Date End Date Lorene Lugo DO [address] [place] [address] PCP - General Family Medicine 11/30/18 Puia, Keiko, PharmD [address] [place] [address] Pharmacist Internal Medicine 06/19/23 04/09/25 documented as of this encounter
--- OUTSIDE RECORDS SUMMARY | 2025-09-27 07:54 | XMS_ITS | Encounter Summary ---
Author Organization [employer] Address [address] [facility] 7t [place] [address] Care Team Providers Care Field Clerk Name Role Phone Lorene Lugo DO Primary Care Provider PuKeiko guzman PharmD Unavailable Reason for Visit * Reason Onset Date Comments Request For Order(s) 02/22/2024 Encounter Details Date Type Department Care Team ([facility] st Contact Info) Description 02/22/2024 Telephone [facility] MEDICINE [address] [place], [place] [phone] Lorene Lugo DO [address] [place] [address] Request For Order(s) Social History Tobacco Use [...] 3:57 PM EDT TC placed to pt [phone] in regards to below message. Pt reports she has already called [facility] to cancel the colonoscopy. Pt informed [...] not feeling well. Please contact pt at [phone] documented in this encounter Plan of Treatment [...] documented as of this encounter Care Teams Field Clerk Relationship Specialty Start Date End Date Lorene Lugo DO [address] [place] [address] PCP - General Family Medicine 11/30/18 Keiko Bowman PharmD [address] [place] [address] Pharmacist Internal Medicine 06/19/23 04/09/25 documented as of this encounter
--- OUTSIDE RECORDS SUMMARY | 2025-09-27 07:54 | XMS_ITS | Encounter Summary ---
Author Organization [employer] Address [address] [facility] 7t [place] [address] Care Team Providers Care Refrigerator Glazier Name Role Phone Lorene Lugo DO Primary Care Provider Keiko Bowman PharmD Unavailable Reason for Visit * Reason Comments Med Refill Encounter Details Date Type Department Care Team ([facility] st Contact Info) Description 07/13/2024 Refill [facility] CHC MED & PEDS [address] [place], [place] [phone] Ximena Florez FNP [address] [place], [place] [phone] Social History Tobacco Use Types Packs/Day Years [...] documented as of this encounter Care Teams Refrigerator Glazier Relationship Specialty Start Date End Date Lorene Lugo DO [address] [place] [address] PCP - General Family Medicine 11/30/18 Puia, Keiko, PharmD [address] [place] [address] Pharmacist Internal Medicine 06/19/23 04/09/25 documented as of this encounter
--- OUTSIDE RECORDS SUMMARY | 2025-09-27 07:54 | XMS_ITS | Patient Health Record ---
Author Organization [facility] Address [address] [place] [address] Care Team Providers Care Blood Bank Specialist Name Role Phone Anna Marie Lugo M.D. Primary Care Provider Lauro Lock Jr Unavailable [phone] Allergies Allergen (clinical drug ingredient) Drug/Non Drug [...] Status W/U Status Risk Notes Problem Constipation (58195461) Constipation, unspecified constipation type (K59.00) Active confirmed Plan Of Treatment Future Test Test Name Order Date COLONOSCOPY 03/01/2014 COLONOSCOPY 12/28/2023 Insurance Providers Payer Name Payer Address Payer Phone Subscriber Number Group Number Insured Name Patient Relationship to Insured Coverage Start Date Coverage End Date [facility] [address] Attn Claims [place] [id number] ALEXANDRA FUNEZ Self - patient is the insured Medical (General) History Medical History History ICD Code Gastroesophageal reflux dise ase, EGD 07/07, no H. pylori or Davila's esophagus. Diabetes type 2 Nephrolithiasis Hyperlipidemia Mitral valve regurgitation Elevated body mass index Colonoscopy 12/14, hyperplastic polyps, t en-year followup Surgical History Surgery Date(Month/Year) tubal ligation
--- OUTSIDE RECORDS SUMMARY | 2025-09-27 07:54 | XMS_ITS | Encounter Summary ---
Author Organization [employer] Address [address] [facility] 7t [place] [address] Care Team Providers Care Physical Testing Supervisor Name Role Phone Lorene Lugo DO Primary Care Provider PuKeiko guzman PharmD Unavailable [phone] Reason for Visit * Reason Comments Med Refill Encounter Details Date Type Department Care Team (Late st Contact Info) Description 12/28/2024 Refill [facility] MEDICINE [address] [place], [place] [phone] Lorene Lugo DO [address] [place], [place] [phone] Social History Tobacco Use Types Packs/Day Years [...] documented as of this encounter Care Teams Physical Testing Supervisor Relationship Specialty Start Date End Date Lorene Lugo DO [address] [place] [address] PCP - General Family Medicine 11/30/18 Puia, Keiko, PharmD [address] [place] [address] Pharmacist Internal Medicine 06/19/23 04/09/25 documented as of this encounter
--- OUTSIDE RECORDS SUMMARY | 2025-09-27 07:54 | XMS_ITS | Encounter Summary ---
Author Organization [employer] Address [address] [facility] 7t [place] [address] Care Team Providers Care French Polisher Name Role Phone Lorene Lugo DO Primary Care Provider [phone] Keiko Bowman PharmD Unavailable [phone] Reason for Visit * Reason Comments Med Refill Encounter Details Date Type Department Care Team ([facility] st Contact Info) Description 08/14/2024 Refill [facility] CHC MED & PEDS [address] [place], [place] [phone] Ximena Florez FNP [address] [place], [place] [phone] Social History Tobacco Use Types Packs/Day Years Used Date Smoking Tobacco: Never Passive Smoke Exposure: Never Smokeless Tobacco: Never Alcohol Use Standard Drinks/Week Comments Never 0 (1 standard drink = 0.6 oz pur e alcohol) Depression Answer Date Recorded Patient Health Questionnaire-9 Score 0 08/25/2023 Housing Stability Answer Date Recorded What is your housing situation today? I have patrciia iraheta 09/14/[address] you [...] documented as of this encounter Care Teams French Polisher Relationship Specialty Start Date End Date Lorene Lugo DO [address] [place] [address] PCP - General Family Medicine 11/30/18 Puia, Keiko, PharmD [address] [place] [address] Pharmacist Internal Medicine 06/19/23 04/09/25 documented as of this encounter
--- OUTSIDE RECORDS SUMMARY | 2025-09-27 07:54 | XMS_ITS | Encounter Summary ---
Author Organization [employer] Address [address] [facility] 7t [place] [address] Care Team Providers Care Meteorologist Liaison Name Role Phone Lorene Lugo DO Primary Care Provider [phone] Encounter Details Date Type Department Care Team (Late st Contact Info) Description 09/21/2025 Orders Only [facility] MEDICINE [address] [place] [address] Lorene Lugo DO [address] [place], [place] [phone] Social History Tobacco Use Types Packs/Day Years [...] AM EDT Narrative 09/24/2025 6:02 PM EDT [facility] [address] [place] [address] Mammography Report Signed Patient: Cheryl Samson I MR#: [id number] 96 : 1960 Acct:[id number] Age/Sex: 64 / F ADM Date: 09/21/25 Loc: HO.MAMMO Attending Dr: Lorene Lugo DO Ordering Physician: Lorene Lugo DO Results: 1N egative Date of Service: 09/21/25 Follow Up: 1 Year From Orig ina Mammogram Procedure(s): MM tomosynthesis screening BI Accession Number(s): [id number] cc: Lorene Lugo DO Reason For Exam: [...] by Park Russo MD in OV> 09/24/25 8295 DD/ 1018 TD/TT: 09/21/25 1023 Inside Sales Engineer: Procedure Note Donotuseinterpreter, Image - 09/24/2025 [place] [facility]'s [address] [place] [address] Mammography Report Signed Patient: Cheryl Samson IMR#: [id number] 96 : 9Acct:[id number] Age/Sex: 64 / FADM Date: 09/21/25 Loc: HO.MAMMO Attending Dr: Lorene Lugo DO Ordering Physician: Lorene Lugoults: 1N egative Date of Service: 09/21/25Follow Up: 1 Year From Orig inal Mammogram Procedure(s): MM tomosynthesis screening BI Accession Number(s): [id number] cc: Lorene Lugo DO Reason For Exam: [...] 09/24/25 1759 DD/ 1018 TD/TT: 09/21/25 1023 Inside Sales Engineer: Lorene Lugo DO IMG BI PROCEDURES Edited Res ult - Final documented in this encounter Visit Diagnoses Not on filedocumented in this encounter Additional Health Concerns Assessment Noted Time PHQ-9 Depression Total Score: 0 08/29/20 25 2:16 PM EDT documented as of this encounter Care Teams Meteorologist Liaison Relationship Specialty Start Date End Date Lorene Lugo DO [address] [place] [address] PCP - General Family Medicine 11/30/18 documented as of this encounter
--- OUTSIDE RECORDS SUMMARY | 2025-09-27 07:54 | XMS_ITS | Encounter Summary ---
Author Organization [employer] Address [address] [facility] 7t [place] [address] Care Team Providers Care Communications Specialist Name Role Phone Lorene Lugo DO Primary Care Provider [phone] Reason for Visit * Reason Comments Med Refill Encounter Details Date Type Department Care Team (Late st Contact Info) Description 08/30/2025 Refill [facility] CHC MED & PEDS [address] [place] [address] Lorene Lugo DO [address] [place] [address] Type 2 diabetes mellitus with microalbuminuria, without [...] documented as of this encounter Care Teams Communications Specialist Relationship Specialty Start Date End Date Lorene Lugo DO [address] [place] [address] PCP - General Family Medicine 11/30/18 documented as of this encounter
--- OUTSIDE RECORDS SUMMARY | 2025-09-27 07:54 | XMS_ITS | Encounter Summary ---
Author Organization [employer] Address [address] [facility] 7t [place] [address] Care Team Providers Care Leather Leveler Name Role Phone Lorene Lugo DO Primary Care Provider Keiko Bowman PharmD Unavailable Reason for Visit * Reason Comments Med Refill Encounter Details Date Type Department Care Team ([facility] st Contact Info) Description 08/12/2024 Refill [facility] CHC MED & PEDS [address] [place], [place] [phone] Ximena Florez FNP [address] [place], [place] [phone] Social History Tobacco Use Types Packs/Day Years [...] documented as of this encounter Care Teams Leather Leveler Relationship Specialty Start Date End Date Lorene Lugo DO [address] [place] [address] PCP - General Family Medicine 11/30/18 Puia, Keiko, PharmD [address] [place] [address] Pharmacist Internal Medicine 06/19/23 04/09/25 documented as of this encounter
--- OUTSIDE RECORDS SUMMARY | 2025-09-27 07:54 | XMS_ITS | Encounter Summary ---
Author Organization [employer] Address [address] [facility] 7t [place] [address] Care Team Providers Care Vp Design Name Role Phone Lorene Lugo DO Primary Care Provider PuKeiko guzman PharmD Unavailable Reason for Visit * Reason Comments Med Refill Encounter Details Date Type Department Care Team (Late st Contact Info) Description 04/13/2024 Refill [facility] CHC MED & PEDS [address] [place], [place] [phone] Lorene Lugo DO [address] [place] [address] Social History Tobacco Use Types Packs/Day Years [...] documented as of this encounter Care Teams Vp Design Relationship Specialty Start Date End Date Lorene Lugo DO [address] [place] [address] PCP - General Family Medicine 11/30/18 Puia, Keiko, PharmD [address] [place] [address] Pharmacist Internal Medicine 06/19/23 04/09/25 documented as of this encounter
--- OUTSIDE RECORDS SUMMARY | 2025-09-27 07:55 | XMS_ITS | Clinical Summary ---
Author Organization [employer] Address [address] [facility] [address] [place] [address] Care Team Providers Care Combination Machine Tool Operator Name Role Phone Brittney Lorene Primary Care Provider [phone] Allergies Active Allergy Reactions Criticality Noted Date [...] % pads USE TWICE DAILY 100 each 12/29/19 25 Active docusate sodium (Colace) 100 MG capsule TAKE 1 CAPSULE(100 MG) BY MOUTH TWICE DAILY 180 capsule 3 01/04/20 25 Active sertraline (Zoloft) 50 MG tablet Take 1 tablet (50 mg) by mouth Once per day. 90 tablet 3 01/11/20 25 Active Multiple Vitamins-Minerals (Multi For Her 50+) tabletIndications:He althcare maintenance TAKE 1 TABLET BY MOUTH EVERY MORNING 90 tablet 3 02/10/20 25 Active FreeStyle lancetsIndications:T ype 2 diabetes mellitus with microalbuminuria, without long-term current use of insulin (HCC) USE TO TEST BLOOD SUGAR TWICE DAILY 200 each 11 02/29/20 25 Active famotidine (Pepcid) 20 MG tablet Take 1 tablet (20 mg) by mouth if needed at bedtime for heartburn. 30 tablet 04/05/20 25 026 Active sucralfate (Carafate) 1 g tablet Take 1 tablet by mouth 2 times daily. 03/30/20 25 Active aspirin (Aspirin Low Dose) 81 MG EC tabletIndications:Ty pe 2 diabetes mellitus with microalbuminuria, without long-term current use of insulin ([facility]),Other hyperlipidemia Take 1 tablet (81 mg) by mouth in the morning. 90 tablet 3 04/10/20 25 Active losartan (Cozaar) 50 MG tabletIndications:Ty pe 2 diabetes mellitus with microalbuminuria, without long-term current use of insulin ([facility]),Essential hypertension Take 1 tablet (50 mg) by mouth Once daily. 90 tablet 04/10/20 25 Active Tirzepatide (Mounjaro) 5 MG/0.5ML solution auto-injectorIndicat ions:Type 2 diabetes mellitus with microalbuminuria, without long-term current use of insulin ([facility]) Inject 5 mg under the skin 1 (one) time per week. 2 mL 04/10/20 25 Active Diclofenac Sodium 1 % gelIndications:Chron ic pain of left knee Apply topically to affected areas twice daily 150 g 04/15/20 25 Active cholecalciferol (Vitamin D-3) 50 MCG (1999 [...] MORNING 90 tablet 1 06/28/20 25 Active atorvastatin (Lipitor) 80 MG tabletIndications:Ty pe 2 diabetes mellitus with microalbuminuria, without long-term current use of insulin ([facility]),Other hyperlipidemia TAKE 1 TABLET(80 MG) BY MOUTH DAILY 90 tablet 3 08/09/20 25 Active glucose blood (FREESTYLE LITE) test stripIndications:Typ e 2 diabetes mellitus with microalbuminuria, without long-term current use of insulin (HCC) USE TO TEST BLOOD TWICE DAILY 100 strip 11 08/18/20 25 Active polycarbophil (Fibercon) 625 MG tablet Take 1 tablet (625 mg) by mouth 2 times daily. 180 tablet 3 08/28/20 Active gabapentin (Neurontin) 100 MG capsule Take 1 capsule (100 mg) by mouth at bedtime. 30 capsule 08/28/20 026 Active Active Problems Problem Noted Date Diagnosed [...] Department Care Team Description 09/21/2025 Orders Only [facility] [address] [place] [phone] Lorene Lugo DO 08/30/2025 Refill [facility] [address] [place] [address] Lorene Lugo DO Type 2 diabetes mellitus with microalbuminuria, without long-term current use of insulin (HCC) 08/28/2025 9:00 AM EDT Office Visit [facility] [address] [place] [phone] Lorene Lugo DO Type 2 diabetes mellitus with diabetic microalbuminuria, without long-term current use of insulin ([facility]) (Primary Dx); Essential hypertension; Other hyperlipidemia; Fatty liver; Anxiety; Mitral valve insufficiency, unspecified etiology; Chronic gastroesophageal reflux disease; Chronic constipation; History of nephrolithiasis; Left leg pain; Balance disorder; Healthcare maintenance; Dietary counseling; Exercise counseling; Encounter for immunization 08/28/2025 Travel 08/24/2025 Telephone [facility] [address] [place] [phone] Lorene Lugo DO Call back request 08/22/2025 Telephone [facility] [address] [place] [phone] Lorene Lugo DO Chart Prep 08/21/2025 Patient Outreach [address] [address] Lorene Lugo DO Pre-visit Planning ((Unable to reach for PVP screening, LVM) to be completed in office ) 08/17/2025 Refill [facility] [address] [place] [address] Lorene Lugo DO Type 2 diabetes mellitus with microalbuminuria, without long-term current use of insulin (CMS/HCC) 08/08/2025 Refill [facility] [address] [place] [phone] Lorene Lugo DO Type 2 diabetes mellitus with microalbuminuria, without long-term current use of insulin (CMS/[facility]); Other hyperlipidemia 08/02/2025 Telephone [facility] [address] [place] [address] Lorene Lugo DO Recall Appointment 08/02/2025 Travel 08/01/2025 Orders Only GENERIC EXTERNAL DATA DEPARTMENT Provider, Generic External Data 07/10/2025 Orders Only GENERIC EXTERNAL DATA DEPARTMENT Provider, Generic External Data 07/01/2025 Orders Only GENERIC EXTERNAL DATA DEPARTMENT Provider, Generic External Data 06/28/2025 Refill [facility] [address] [place] [address] Keiko Bowman PharmD Type 2 diabetes mellitus with microalbuminuria, without long-term current use of insulin ([facility]); Essential hypertension 06/28/2025 Refill [facility] [address] [place] [address] Lorene Lugo DO from Last 3 Months [...] microalbuminuria, without long-term current use of insulin ([facility]) POCT GLUCOSE Routine 08/28/2025 9:15 AM EDT Type 2 diabetes mellitus with diabetic microalbuminuria, without long-term current use of insulin ([facility]) XR KUB AND UPRIGHT 2 VIEWS Routine [...] AM EDT Narrative 09/25/2025 10:51 AM EDT [address] [address] Magnetic Resonance Report Signed Patient: Cheryl Samson I MR#: [id number] 96 : 1960 Acct:[id number] Age/Sex: 64 / F ADM Date: 09/25/25 Loc: HO.MRI Attending Dr: Lorene Lugo DO Ordering Physician: Lorene Lugo DO Date of Service: 09/25/25 Procedure(s): MR head/brain wo con Accession Number(s): [id number] cc: Lorene Lugo DO Reason for Exam: [...] 09/25/25 1048 DD/ 0953 TD/TT: 09/25/25 1030 Campground Hand: Procedure Note Donotuseinterpreter, Image - 09/25/2025 [place] [address] Magnetic Resonance Report Signed Patient: Cheryl Samson IMR#: [id number] 96 : 9Acct:[id number] Age/Sex: 64 / FADM Date: 09/25/25 Loc: HO.MRI Attending Dr: Lorene Lugo DO Ordering Physician: Lorene Lugo DO Date of Service: 09/25/25 Procedure(s): MR head/brain wo con Accession Number(s): [id number] cc: Lorene Lugo DO Reason for Exam: [...] 09/25/25 1048 DD/ 0953 TD/TT: 09/25/25 1030 Campground Hand: Lorene Lugo DO [facility] MRI PROCEDURES Edited Re sult - Final * BI Mammogram Screening Tomosynthesis Bilateral (09/21/2025 10:18 AM EDT) Anatomical Region Laterality Modality Breast Bilateral Mammography 09/21/2025 10:1 8 AM EDT Narrative 09/24/2025 6:02 PM EDT [facility] [address] [place], [place] [address] Mammography Report Signed Patient: Cheryl Samson I MR#: [id number] 96 : 1960 Acct:[id number] Age/Sex: 64 / F ADM Date: 09/21/25 Loc: HO.MAMMO Attending Dr: Lorene Lugo DO Ordering Physician: Lorene Lugo DO Results: 1N egative Date of Service: 09/21/25 Follow Up: 1 Year From Orig ina Mammogram Procedure(s): MM tomosynthesis screening BI Accession Number(s): [id number] cc: Lorene Lugo DO Reason For Exam: [...] 09/24/25 1759 DD/ 1018 TD/TT: 09/21/25 1023 Campground Hand: Procedure Note Donotuseinterpreter, Image - 09/24/2025 [facility] [address] [place], [place] [address] Mammography Report Signed Patient: Cheryl Samson IMR#: [id number] [birth year] : 9Acct:[id number] Age/Sex: 64 / FADM Date: 09/21/25 Loc: HO.MAMMO Attending Dr: Lorene Lugo DO Ordering Physician: Lorene Lugoults: 1N egative Date of Service: 09/21/25Follow Up: 1 Year From Orig ina Mammogram Procedure(s): MM tomosynthesis screening BI Accession Number(s): [id number] cc: Lorene Lugo DO Reason For Exam: [...] 09/24/25 1759 DD/ 1018 TD/TT: 09/21/25 1023 Campground Hand: Lorene Lugo DO IM BI PROCEDURES Edited Res ult - Final [...] AM EDT Narrative 08/01/2025 5:11 AM EDT [place] [address] XRay Report Signed Patient: Cheryl Samson I MR#: [id number] 96 : 1960 Acct:[id number] Age/Sex: 64 / F ADM Date: 08/01/25 Loc: .ED Attending Dr: Ordering Physician: Denise Garcia Date of Service: 08/01/25 Procedure(s): XR KUB Accession Number(s): [id number] cc: Denise Garcia; Lorene Lugo DO CLINICAL [...] in OV> 08/01/25509 DD/ 8 TD/TT: 08/01/25508 Campground Hand: Procedure Note Donotuseinterpreter, Image - 08/01/[address] [address] XRay Report Signed Patient: Cheryl Samson IMR#: [id number] 96 : 1960cct:[id number] Age/Sex: 64 / FADM Date: 08/01/25 Loc: HO.ED Attending Dr: Ordering Physician: Denise Garcia Date of Service: 08/01/25 Procedure(s): XR KUB Accession Number(s): [id number] cc: Denise Garcia; Lorene Lugo DO CLINICAL [...] in OV> 08/01/25509 DD/ 8 TD/TT: 08/01/25508 Campground Hand: [facility] External Provider IMG XR PROCEDURES Edited Result - Final * (ABNORMAL) Urinalysis, Complete, with Reflex to Culture (08/01/2025 4:32 AM EDT) Only the most recent of2 resultswithin the time period is included. Color Urine Yellow [facility] Appearance Urine Cloudy [facility] PH 6.5 5.0 - 9.0 [facility] Glucose Urine UA Negative Negative mg/dL [facility] Urine Blood Negative Negative [facility] Specific [place] - Urine 1.015 1.005 - 1.025 [facility] Urine Protein Negative Neg-Trace mg/dL [facility] Urine Ketones Negative Negative mg/dL [facility] Nitrite Urine Negative Negative [facility] Leukocyte Esterase Urine Large (3+)(A) Negative [facility] RBC Urine 0-2 0 - 2 /HPF [facility] Urine WBC >50(A) 0 - 5 /HPF [facility] Urine Squamous Epithelial Cell 6-10 0 - 2 /HPF [facility] Urine Bacteria None Seen None Seen [facility] Hyaline Casts, Urine 0-2 0 - 2 /LPF [facility] 08/01/2025 4:32 AM EDT 08/01/2025 4:36 AM EDT Narrative [facility] - 08/01/2025 4:45 AM EDT [id number], Clean Catch us Generic External Data Provider LAB URINE ORDERAB LES Final Result [facility] [address] [place] [phone] * (ABNORMAL) CBC auto differential (08/01/2025 4:32 AM EDT) Only the most recent of2 resultswithin the time period is included. White Blood Count 6.7 4.8 - 10.8 X10*3/uL [facility] Red Blood Count 4.00(L) 4.20 - 5.50 X10*6/uL [facility] Hemoglobin 11.3(L) 12.0 - 16.0 g/dl [facility] Hematocrit 33.9(L) 37.0 - 47.0 % [facility] Mean Corpuscular Volume 84.8 80.0 - 98.0 fL [facility] Mean Corpuscular Hemoglobin 28.3 27.0 - 33.0 pg [facility] Mean Corpuscular HGB Conc 33.3 31.0 - 35.0 g/dl [facility] Red Cell Distribution Width 13.3 11.0 - 16.0 % [facility] Platelet Count 189 160 - 400 X10*3/uL [facility] Mean Platelet Volume 10.2 9.4 - 12.3 fL [facility] Neutrophils Percent Auto 75.9(H) 45 - 73 % [facility] Imm Gran Pct Auto 0.3 0.0 - 0.4 % [facility] Lymphocytes Percent Auto 16.4(L) 20 - 40 % [facility] Monocytes Percent Auto 6.9 2 - 11 % [facility] Eosinophils Percent Auto 0.3 0 - 4 % [facility] Basophils Percent Auto 0.2 0 - 2 % [facility] NRBC Pct Auto 0.0 0.0 - 0.2 /100WBC [facility] Neutrophils Absolute Auto 5.1 2.0 - 8.3 x10*3/uL [facility] Imm Gran Abs Auto 0.02 0.00 - 0.03 X10*3/uL [facility] Lymphocytes Absolute Auto 1.1(L) 1.2 - 4.9 X10*3/uL [facility] Monocytes Absolute Auto 0.5 0.1 - 1.2 X10*3/uL [facility] Eosinophils Absolute Auto 0.0 0.0 - 0.4 X10*3/uL [facility] Basophils Absolute Auto 0.0 0.0 - 0.2 X10*3/uL [facility] NRBC Abs Auto 0.000 0.0 - 0.012 X10*3/uL [facility] 08/01/2025 4:32 AM EDT 08/01/2025 4:36 AM EDT us Generic External Data Provider LAB BLOOD ORDERAB LES Final Result [facility] [address] [place] [phone] * Magnesium (08/01/2025 4:32 AM EDT) [facility] Magnesium 1.7 1.6 - 2.6 mg/dL [facility] 08/01/2025 4:32 AM EDT 08/01/2025 4:36 AM EDT Generic External Data Provider LAB BLOOD ORDERAB LES Final Result Performing Organization Address City/[facility]/ZIP Co de Phone Number [facility] [address] [place] [phone] * Lipase (08/01/2025 4:32 AM EDT) Only the most recent of2 resultswithin the time period is included. [facility] Lipase 61 8 - 78 U/L [facility] 08/01/2025 4:32 AM EDT 08/01/2025 4:36 AM EDT Generic External Data Provider LAB BLOOD ORDERAB LES Final Result Performing Organization Address [facility] de Phone Number [facility] [address] [place] [phone] * (ABNORMAL) Comprehensive Metabolic Panel (08/01/2025 4:32 AM EDT) Only the most recent of2 resultswithin the time period is included. [facility] Sodium 143 135 - 145 mmol/L [facility] Potassium 4.4 3.3 - 5.1 mmol/L [facility] Chloride 108 96 - 108 mmol/L [facility] Carbon Dioxide 28 22 - 29 mmol/L [facility] Anion Gap 11(L) 12 - 20 [facility] Urea Nitrogen (BUN) 10 9 - 16 mg/dL [facility] Creatinine, Serum 0.56 0.5 - 1.4 mg/dL [facility] Creatinine Clr Calc Pharmacy 94.5 [facility] Comment:Provided height and weight: 152.4 cm,83.3 kg.eGFR (calculated from the MDRD study equation) and eCrCl(calculated from the Cockcroft-Gault equation) are based ondifferent parameters and may not yield comparable results.If eCrCl result is absurd, please check patient'sheight/weight. Estimated Glomerular Filt Rate >60 [facility] Comment:Chronic Kidney Disea se: Estimated GFR < 60 mL/min/1.55g5Dtrjpa Kidney Disease: Estimated GFR < 15 mL/min/1.73m2 Glucose 117(H) 60 - 115 mg/dL [facility] Calcium 8.7 8.4 - 10.2 mg/dL [facility] Bilirubin, Total 0.3 0.0 - 1.0 mg/dL [facility] Aspartate Amino Transferase 27 5 - 31 U/L [facility] Alanine Aminotransferase 20 0 - 31 U/L [facility] Total Protein 6.5 6.5 - 8.0 g/dL [facility] Albumin Level 3.7 3.5 - 5.0 g/dL [facility] Alkaline Phosphatase 80 39 - 117 U/L [facility] 08/01/2025 4:32 AM EDT 08/01/2025 4:36 AM EDT us Generic External Data Provider LAB BLOOD ORDERAB LES Final Result [facility] [address] [place] [phone] * Culture, Urine, Routine (08/01/2025 12:00 AM EDT) Only the most recent of2 resultswithin the time period is included. Urine Urine specimen obtained by clean catch procedure / Unknown 08/01/2025 08/01/2025 Comment:UACC Narrative [facility] - 08/02/2025 10:43 AM EDT Urine Culture Report Result Urine Culture < 10,000 cfu/ml Specimen Source: Urine clean catch us Generic External Data Provider LAB MICROBIOLOGY - GENERAL ORDERABLES Final Result Performing Organization Address [facility] de Phone Number [facility] [address] [place] [address] [phone] * (ABNORMAL) SARS-CoV-2 RNA, Influenza A/B, and RSV RNA, Ql NAAT (07/10/2025 10:40 AM EDT) Only the most recent of2 resultswithin the time period is included. Influenza A PCR NEGATIVE Negative [facility] Influenza B PCR NEGATIVE Negative [facility] Resp Syncy Virus RNA Qual PCR NEGATIVE Negative [facility] SARS COV2 PCR POSITIVE(A) Negative [facility] Comment:All test results mus t [...] use by authorized laboratories.Testing performed on the [employer] GeneXpert utilizingreal-time RT-PCR.All SARS CoV2 and positive influenza A/B results arereported to [facility]. 07/10/2025 10:4 0 AM EDT 07/10/2025 1:26 PM EDT us Generic External Data Provider LAB MICROBIOLOGY - GENERAL ORDERABLES Final Result Performing Organization Address [facility] Co de Phone Number [facility] [address] [place] [address] [phone] * (ABNORMAL) Lipid Panel, Standard (04/06/2025 10:19 AM EDT) Triglycerides 74 <150 mg/dL [facility] Comment:Desirable Triglyceri de: less than 150 mg/dLBorderline High Triglyceride 150-199 mg/dLHigh Triglyceride: 200-499 mg/dLVery High Triglyceride: greater than or equal to 5OO mg/dL Cholesterol 115 <200 mg/dL [facility] Comment:Desirable Cholestero l: less than 200 mg/dLBorderline High Cholesterol: 200-239 mg/dLHigh Cholesterol: greater than 239 mg/dL LDL Cholesterol Calculated 61 <100 mg/dL [facility] Comment:Desirable LDL: less than 100 mg/dLNear Optimal/Above Optimal LDL: 110- 129 mg/dLBorderline High LDL: 130-159 mg/dLHigh LDL: 160-189 mg/dLVery High LDL: greater than or equal to 190 mg/dL HDL Cholesterol 40(L) >40 mg/dL [facility] Comment:Desirable HDL: great er than 40 mg/dL Note: This HDL assay may give artificially low results in patients with liver disease. Blood Venous blood specimen / Unknown 04/06/2025 10:19 AM EDT 04/06/2025 11:05 AM EDT Lorene Lugo DO LAB BLOOD ORDERABLES Final R esult [facility] [address] [place] [phone] * (ABNORMAL) Cologuard?? colon cancer screening (03/04/2024 3:00 PM EDT) Cologuard Result Positive( A) Negative 03/10/2024 10:28 AM EDT [employer] (CLIA #:[id number]) Comment: POSITIVE TEST RESULT. A positive Cologuard [...] Rivers et al, N Engl J Med 2014;370(14):7752-1291.) Cologuard may produce a false negative or false positive result (no colorectal cancer or precancerous polyp present at colonoscopy follow up). A negative Cologuard test result does not guarantee the absence of CRC or advanced adenoma (pre-cancer). The current Cologuard screening interval is every 3 years. ([place] [employer] Society and U.S. Multi-Society Task Force). Cologuard performance data in a 10,000 patient pivotal study using colonoscopy as the reference method can be accessed at the following location: www.[email or web address]/results. Additional description of the Cologuard test process, warnings and precautions can be found at [email or web address].[email or web address]. Stool specimen (specimen) 03/04/2024 3:00 PM EDT 03/05/2024 11:39 AM EDT Lorene Lugo DO LAB MOLECULAR DIAGNOSTICS OR DERABLES Final Result [facility] (CLIA #:[id number]) [place] [address], * Hepatitis C Antibody with Reflex to HCV RNA,PCR w/Reflex to Genotype, LiPA (01/23/2023 8:47 AM EST) Hepatitis C Antibody NON-REACT MARCE NON-REACT MARCE [facility] [employer]) Diagnost Index <0.02 <1.00 [facility] [place] [facility] Comment: HCV antibody was non-reactive. There is no laboratory evidence of HCV infection. In most cases, no further action is required. However, if recent HCV exposure is suspected, a test for HCV RNA (test code 78371) is suggested. For additional information, please refer to http://education.connex.io/faq/GIX307 (This link is being provided for informational/ educational purposes only.) 01/23/2023 8:47 AM EST 01/23/2023 8:48 AM EST Narrative [facility] - 01/24/2023 6:35 PM EST FASTING:YES FASTING: YES Lorene Lugo DO LAB BLOOD ORDERABLES Final R esult [address], [place] [address] [facility] [place] [facility] [employer] [address] [place] [address] (Nl2) [place] [address] * Thinprep PAP, HPV mRNA E6/E7 RFX HPV 16,18/45, Chlamydia/N. Gonorrhoeae (01/16/2023 10:19 AM EST) Clinical Information: SREENIN PAP [facility] [place] [facility] LMP: NONE GIVEN [facility] [place] [facility] Prev. PAP: YES [facility] [place] [facility] Prev. BX: NO [facility] [place] [facility] SOURCE: Cervix [facility] [place] [facility] Statement Of Adequacy: SATISFACTORY FOR EVALUATION Partially obscuring inflammation [facility] [place] [facility] Interpretation/Re sult: [employer] Comment: Negative for intraepithelial lesion or malignancy. Atrophic pattern; predominantly parabasal cells Bathhouse Keeper: [facility] Comment: KR, CT(ASCP) CT screening location: [place] [address] (Always Message) [facility] [employer] Comment: EXPLANATORY NOTE: The Pap is a [...] HPV nRNA E6/E7 Not Detected Not Detected [facility] Comment: Methodology: Cultural Centre Manager-Mediated Amplification This assay detects E6/E7 viral messenger RNA (mRNA) from 14 high-risk HPV types (16,18,31,33,35,39,45,51,52,56,58,59,66,68). Cervical sources are required for HPV testing. If a vaginal source from a patient who has had a total hysterectomy with removal of cervix was submitted, please contact the testing laboratory for alternative testing options. For additional information, please refer to http://[employer] Medical Systems/faq/BEA227b8 (This link if provided for information/ educational purposes only.) Chlamydia trachomatis RNA, TMA, Urogenital NOT DETECTED NOT DETECTED [facility] Neisseria gonorrhoeae RNA, TMA, Urogenital NOT DETECTED NOT DETECTED [facility] Comment [facility] Comment: The analytical performance characteristics of this assay, when used to test SurePath(TM) specimens have been determined by [facility]. The modifications have not been cleared or approved by the FDA. This assay has been validated pursuant to the CLIA regulations and is used for clinical purposes. For additional information, please refer to https://[employer] Medical Systems/faq/DPV658 (This link is being provided for information/ educational purposes only.) Specimen from uterine cervix (specimen) 01/16/2023 10:19 AM EST 01/19/2023 12:52 AM EST us Lorene Lugo DO LAB PATHOLOGY ORDERABLES Fin al Result [facility] [address], [place] [address] [facility] [address] [facility], (Nl2) [place] [address] * Colonoscopy (12/13/2014) Colonoscopy Normal Normal Comment:Hyperplastic polyps 10yr 12/13/2014 Lauro Paredes MD HEALTH MAINTENANCE Final Res ult from Last 3 Months or Most Recently Relevant to Health Maintenance Insurance [facility] CUSTODIAL OPTIONS (O D-SNP) [place] [id number] Care Teams Combination Machine Tool Operator Relationship Specialty Start Date End Date Lorene Lugo DO [address] [place] [phone] PCP - General Family Medicine 11/30/18
--- OUTSIDE RECORDS SUMMARY | 2025-09-27 07:55 | XMS_ITS | Encounter Summary ---
Author Organization [facility] [employer] Address [address] [facility] 7t [place] [address] Care Team Providers Care Life Insurance Actuary Name Role Phone Lorene Lugo DO Primary Care Provider PuKekio guzman PharmD Unavailable Reason for Visit * Reason Comments Med Refill Encounter Details Date Type Department Care Team (Late st Contact Info) Description 03/30/2025 Refill [facility] MED[facility]INE 230 [place], [place] [phone] Lorene Lugo DO 230 [place], [place] [phone] Social History Tobacco Use Types Packs/Day Years [...] documented as of this encounter Care Teams Life Insurance Actuary Relationship Specialty Start Date End Date Lorene Lugo DO 230 [place] [address] PCP - General Family Medicine 11/30/18 Puia, Keiko, PharmD 230 [place] [address] Pharmacist Internal Medicine 06/19/23 04/09/25 documented as of this encounter
--- OUTSIDE RECORDS SUMMARY | 2025-09-27 07:55 | XMS_ITS | Encounter Summary ---
Author Organization [employer] Address [address] [facility] 7t [place] [address] Care Team Providers Care Grape Pruner Name Role Phone Lorene Lugo DO Primary Care Provider [phone] Reason for Visit * Reason Comments Med Refill Encounter Details Date Type Department Care Team (Late st Contact Info) Description 06/28/2025 Refill [facility] MED[facility]INE 230 [place], [place] [phone] Keiko Bowman, PharmD 230 [place] [address] Type 2 diabetes mellitus with microalbuminuria, without long-term current use of insulin ([facility]); Essential hypertension Social History Tobacco Use Types [...] documented as of this encounter Care Teams Grape Pruner Relationship Specialty Start Date End Date Lorene Lugo DO 230 [place] [address] PCP - General Family Medicine 11/30/18 documented as of this encounter
--- OUTSIDE RECORDS SUMMARY | 2025-09-27 07:55 | XMS_ITS | Clinical Summary ---
Author Organization 175 [facility] Address [address] [place] [address] Phone Care Team Providers Care Automotive Production Worker Name Role Phone Lorene Lugo DO Primary Care Provider [phone] Allergies Active Allergy Reactions Criticality Noted Date [...] - 09/06/2025 11:59 PM EDT Hospital Encounter [facility] MRI [address] [place] [id number] Disorder of ligament of right foot Discharge Disposition: Home or Self Care 08/31/2025 8:15 AM EDT Office Visit Orthopedic [place] [address] [phone] Eleuterio Santiago DPM Disorder of ligament of right foot (Primary Dx); Plantar fascial fibromatosis; Calcaneal spur, right foot; Neuritis 07/20/2025 10:45 AM EDT Office Visit Orthopedic [place] [address] [phone] Eleuterio Santiago DPM Disorder of ligament of [...] AM EST Office Visit Orthopedic Surgery - [place] [address] [place] [phone] Eleuterio Santiago, CHINTAN [address] [place] [phone] Health Maintenance Due Date Last Done Comments [...] Signed Date: 09/07/2025 04:25 ET Workstation ID: [id number] Transcribed By: Self Edit Transcribed Date: 09/07/2025 [...] Date: 09/07/2025 04:16 ET Assigned Physician: Mandi Fernadnez Reviewed and Electronically Signed By: Mandi Fernandez Signed Date: 09/07/2025 04:25 ET Workstation ID: [id number] Transcribed By: Self Edit Transcribed Date: 09/07/2025 [...] ID:[id number] Group ID:[id number] Type:Not on file Address: [place] [address] [address] [address] MEDICAID - [place] Care Teams Automotive Production Worker Relationship Specialty Start Date End Date Lorene Lugo DO 230 [place], [place] PCP - General Family Medicine 11/21/24
--- OUTSIDE RECORDS SUMMARY | 2025-09-27 07:55 | XMS_ITS | Encounter Summary ---
Author Organization [employer] Address 75 [facility] 7t [place] [address] Care Team Providers Care Fiber Technician Name Role Phone Lorene Lugo DO Primary Care Provider Keiko Bowman PharmD Unavailable [phone] Reason for Visit * Reason Onset Date Comments Appointment Request 02/01/2024 Encounter Details Date Type Department Care Team (Late st Contact Info) Description 02/01/2024 Telephone [facility] MEDICINE 230 [place], [place] [phone] Lorene Lugo DO 230 [place], [place] [phone] Appointment Request Social History Tobacco Use Types [...] a DM follow up appt with PCP. Second Time Worker verify notes from last visit on 08/25/2023 pcp put appt should be around 12/25 but we can't schedule [place] appts. Second Time Worker advised someone will be calling to schedule [...] documented as of this encounter Care Teams Fiber Technician Relationship Specialty Start Date End Date Lorene Lugo DO 230 [place] [address] PCP - General Family Medicine 11/30/18 Keiko Bowman PharmD 230 [place] [address] Pharmacist Internal Medicine 06/19/23 04/09/25 documented as of this encounter
--- OUTSIDE RECORDS SUMMARY | 2025-09-27 07:55 | XMS_ITS | Encounter Summary ---
Author Organization [employer] Address [address] [place] [address] 7t [place] [address] Care Team Providers Care Compensation Consulting Manager Name Role Phone Lorene Lugo DO Primary Care Provider Delloghenrietta Alo PharmD Unavailable Unavail able Keiko Bowman PharmD Unavailable [phone] Encounter Details Date Type Department Care Team (Late st Contact Info) Description 12/30/2022 Telephone [facility] MEDICINE 230 [place], [place] [phone] Lorene Lugo DO [address] [place], [place] [phone] Social History Tobacco Use Types Packs/Day Years [...] on filedocumented in this encounter Care Teams Compensation Consulting Manager Relationship Specialty Start Date End Date Lorene Lugo DO [address] [place], [place] [phone] PCP - General Family Medicine 11/30/18 Alo Freitas, PharmD [address] [place] [address] Pharmacist Internal Medicine 02/11/23 06/18/23 Keiko Bowman, Sumit [address] [place] [address] Pharmacist Internal Medicine 06/19/23 04/09/25 documented as of this encounter
--- OUTSIDE RECORDS SUMMARY | 2025-09-27 07:55 | XMS_ITS | Encounter Summary ---
Author Organization [employer] Address [address] [place] [address] 7t [place] [address] Care Team Providers Care Ticket Scheduler Name Role Phone Lorene Lugo DO Primary Care Provider Dellogono, Alo PharmD Unavailable Unavail able Pumegan Keiko PharmD Unavailable [phone] Encounter Details Date Type Department Care Team (Late st Contact Info) Description 01/06/2023 Orders Only [facility] & P[facility]S [address] [place] [address] Lorene Hollingsworth LPN Social History Tobacco Use [...] EDT 08/25/2023 6:40 PM EDT Comment:UACC Narrative [facility] - 08/27/2023 11:24 AM EDT Urine Culture Report Result Urine Culture 10,000 to 50,000 cfu/ml Urine Culture Mixed bacterial meenu characteristic of Urine Culture urogenital contamination. Specimen Source: Urine clean catch Lorene Lugo DO LAB MICROBIOLOGY - GENERAL O RDERABLES Final Result Performing Organization Address [facility] Co de Phone Number [facility] [address] [place] [address] [phone] * (ABNORMAL) Binax[facility] Covid-19 Ag (07/07/2023 1:04 PM EDT) [facility] Covid-19 Ag Positive (A) Negative [facility] Comment:Result reported to [facility].All test results must be correlated with clinical findings.This test has been authorized by the FDA under an EmergencyUse Authorization(EUA)for use by authorized laboratories.Testing performed on the BinaxCotyw Covid-19 Ag Card which eva lateral flow immunoassay. The test does not differentiatebetween the SARS-CoV and SARS-COV-2. 07/07/2023 1:04 PM EDT 07/07/2023 1:34 PM EDT [facility] Exter nal Provider LAB BODY FLUIDS AND STOOLS ORDERABLES Final Result Performing Organization Address [facility] de Phone Number [facility] [address] [place] [address] [phone] documented in this encounter Visit Diagnoses Not on filedocumented in this encounter Care Teams Ticket Scheduler Relationship Specialty Start Date End Date Lorene Lugo DO [address] [place] [address] PCP - General Family Medicine 11/30/18 Alo Freitas, PharmD 230 [place] [address] Pharmacist Internal Medicine 02/11/23 06/18/23 Keiko Bowman, Sumit [address] [place] [address] Pharmacist Internal Medicine 06/19/23 04/09/25 documented as of this encounter
--- OUTSIDE RECORDS SUMMARY | 2025-09-27 07:55 | XMS_ITS | Encounter Summary ---
Author Organization [facility] Address [address] [place] [address] Care Team Providers Care Revenue Audit Clerk Name Role Phone Lorene Lugo DO Primary Care Provider [phone] Encounter Details Date Type Department Care Team (Late Contact Info) Description 06/22/2025 Lab Requisition [facility] [address] [facility] [place] [phone] Shant Kohler, SETH [address] [place] [phone] Calculus of kidney Social History Tobacco Use Types Packs/Day Years Used Date Smoking Tobacco: Never Assessed Comments Unknown Sex and Gender Information Value Date Recorded Sex Assigned at Not on file Legal Sex Female 10:48 PM EST Gender Identity Not on file Sexual Orientation Not on file documented as of this encounter Plan of Treatment Upcoming Encounters Date Type Department Care Team ([facility] Contact Info) Description 10/02/2025 8:15 AM EST Office Visit Orthopedic Surgery - [place] 250 [address] [facility] [address] [place] [phone] Eleuterio Santiago, DPM [address] [place] [phone] documented as of this encounter Procedures Procedure [...] 6:13 PM EDT us Shant R Edita ANN LAB BLOOD ORDERABLES Final Res ult [facility] [address] [place] [address], documented in this encounter Visit Diagnoses Diagnosis Calculus of kidney documented in this encounter Care Teams Revenue Audit Clerk Relationship Specialty Start Date End Date Lorene Lugo DO [address] [place] [address] PCP - General Family Medicine 11/21/24 documented as of this encounter
== END ==
LOC: HO.CARD 07:53
PROVIDERS: PCP Family Medicine; Visit Provider Family Medicine
DX: R26.89 Other abnormalities of gait and mobility (principal)
CPT/HCPCS: 93306

== ENCOUNTER 2025-10-16 08:12 | Outpatient (REF) | payer OTHER, SELFPAY ==
--- NOTE | ~2025-10-16 | US_ITS ---
CLINICAL HISTORY: ABNORMAL GAIT MOBILITY US bilateral carotid duplex Comparison: None Provided Findings: Waveforms demonstrate normal pattern. Peak systolic velocities: Right CCA: 77 cm/s Right ICA: 93 cm/s ICA/CCA ratio: 1.2 Right ECA: Unremarkable Right vertebral artery flow antegrade. No significant plaque noted. Left CCA: 93 cm/s Left ICA: 101 cm/s ICA/CCA ratio: 1.1 Left ECA: Unremarkable Left vertebral artery flow antegrade. No significant plaque noted. Impression: No significant velocity altering stenosis This document has been electronically signed by: Miky Broussard MD on 10/17/2025 00:47:11
--- NOTE | ~2025-10-16 | US_ITS ---
CLINICAL HISTORY: f u fatty liver US abdomen complete Comparison: 10/02/2023 Findings: Gallbladder normal without stones or wall thickening. Common duct measures 1.8 mm. No sonographic Mcdowell sign. Liver is homogeneous and normal in size and echogenicity. Right lobe measures 14.9 cm in length. Main portal vein patent with normal direction of flow. Pancreas is unremarkable. Aorta and IVC patent and normal in caliber. The right kidney is normal, 10.6 cm in length. The left kidney is normal, 10.4 cm in length. Small nonobstructing bilateral renal stones. No hydronephrosis or significant focal abnormality. The spleen is normal, 10.0 cm in length. No focal abnormality. Impression: Small nonobstructing renal stones Otherwise unremarkable This document has been electronically signed by: Miky Broussard MD on 10/16/2025 20:18:19
== END 2025-10-16 08:13 | disposition home or self-care (01) ==
LOC: HO.HMGCX 08:12
PROVIDERS: PCP Family Medicine; Visit Provider Family Medicine
DX: K76.0 Fatty (change of) liver, not elsewhere classified (principal); R26.89 Other abnormalities of gait and mobility
CPT/HCPCS: 76700; 93880

== ENCOUNTER → 2025-10-16 08:16 | Outpatient (BNV) | payer OTHER, SELFPAY | PROVIDERS: PCP Family Medicine; Visit Provider Radiology Diagnostic Radiology | DX: K76.0 Fatty (change of) liver, not elsewhere classified (principal); N20.0 Calculus of kidney | CPT/HCPCS: 76700; 93880 ==

== ENCOUNTER 2025-11-01 00:47 | Emergency (ER) | payer OTHER, SELFPAY ==
--- NOTE | 2025-11-01 00:50 | ED.GENADULT ---
HPI - General Adult General Chief complaint: Nausea/Vomiting/Diarrhea Stated complaint: N/V Time Seen by Provider: 11/01/25 03:53 Source: patient Limitations: no limitations History of Present Illness ED Provider: Denise Garcia PA-C HPI narrative: 64-year-old female with a history of diabetes, hypertension, hyperlipidemia recurrent urinary tract infection, chronic pain, obesity, GERD, who presents with low blood sugar. Patient states she woke this evening with a blood sugar of 83 and she felt nauseous. Her symptoms have since resolved after receiving Zofran. She denies dysuria, hematuria, belly pain, back pain or fever. Related Data Home Medications ?Medication ?Instructions ?Recorded ?Confirmed aspirin 81 mg tablet,delayed 81 mg PO DAILY 03/15/21 06/15/24 release atorvastatin 40 mg tablet 40 mg PO BEDTIME 03/15/21 06/15/24 cholecalciferol (vitamin D3) 50 50 mcg PO DAILY 03/15/21 06/15/24 mcg (2,000 unit) tablet docusate sodium 100 mg capsule 100 mg PO DAILY 03/15/21 06/15/24 multivitamin-ferrous 1 tab PO DAILY 03/15/21 06/15/24 fumarate-folic acid 18 mg-400 mcg tablet omeprazole 20 mg capsule,delayed 20 mg PO DAILY 03/15/21 06/15/24 release sertraline 50 mg tablet 50 mg PO DAILY 03/15/21 06/15/24 losartan 50 mg tablet 50 mg PO DAILY 03/21/22 06/15/24 blood sugar diagnostic (FreeStyle #10 ea 05/22/22 06/15/24 Lite Strips) lancets 28 gauge (FreeStyle #100 ea 12/09/22 06/15/24 Lancets) cetirizine 10 mg tablet 10 mg PO DAILY 04/20/24 06/15/24 tirzepatide 5 mg/0.5 mL mg subcut 06/06/25 subcutaneous pen injector (Lalita) Previous Rx's ?Medication ?Instructions ?Recorded aluminum hydrox-magnesium carb 254 10 ml PO QID PRN dyspepsia #355 mL 03/17/25 mg-237.5 mg/5 mL oral suspension (Gaviscon Extra Strength) sucralfate 1 gram tablet (Carafate) 1 g PO BID #60 tabs 03/28/25 ondansetron 4 mg disintegrating 4 mg PO Q6H PRN nausea and 07/01/25 tablet vomiting #7 tabs cetirizine 5 mg-pseudoephedrine ER 1 tab PO BID 7 days #14 tabs 07/10/25 120 mg tablet,extended release,12hr fluticasone propionate 50 1 spray intranasal Q12H #16 grams 07/10/25 mcg/actuation nasal spray,suspension cephalexin 500 mg capsule 500 mg PO Q12H #13 caps 08/01/25 sucralfate 100 mg/mL oral 10 ml PO QID PRN indigestion #300 08/01/25 suspension (Carafate) mL nitrofurantoin 100 mg PO Q12H 7 days #13 caps 11/01/25 monohydrate/macrocrystals 100 mg capsule (Macrobid) ondansetron 4 mg disintegrating 4 mg PO Q8H PRN nausea and 11/01/25 tablet vomiting #10 tabs Allergies Allergy/AdvReac Type Severity Reaction Status Date / Time ibuprofen (From Motrin) Allergy Mild Rash Verified 11/01/25 00:53 Review of Systems Review of Systems: Yes all other systems are reviewed and are negative Constitutional: Constitutional: Denies fatigue and Denies fever(s) Cardiovascular: Cardiovascular: Denies chest pain and Denies dyspnea Respiratory: Respiratory: Denies cough and Denies dyspnea Gastrointestinal: Gastrointestinal: Denies abdominal pain, Reports nausea and Denies vomiting Genitourinary: Genitourinary: Denies dysuria and Denies flank pain Musculoskeletal: Musculoskeletal: Denies back pain Endocrine: Endocrine: Denies fatigue PMF Past Medical History Attestation statement: The following information was validated with the patient. 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 Physical Exam ED Vital Signs: Vital Signs - 24 hr 11/01/25 00:52 Temperature 98 F Pulse Rate 100 Respiratory Rate 16 Blood Pressure 146/72 H Pulse Oximetry 98 Oxygen Delivery Method Nasal Cannula BMI result Body Mass Index 35.3 Const Other: Alert Orientation/consciousness: patient oriented x3 Resp Effort & Inspection: normal respiratory effort Cardio Other: Normal peripheral perfusion General: Yes no CVA tenderness Back/Spine/Pelvis Back: no CVA tenderness Skin Other: Warm dry no rash Neuro General: patient oriented x3, gait normal, no focal motor deficits and CN's II-XI intact bilaterally Psych Other: Cooperative Course Course Course Narrative: Heidy Lees, 11/01/25 0054 Rapid medical screening exam performed. 64 yo F history of DM on Mounjaro, HTN presented to ED for signs of low blood sugar of 83. Patient complains of shakiness and nausea. She attempted to eat some food however had difficulty to nausea. Glucose check here shows 188. Basic labs CBC CMP and lipase ordered for patient. Medications Administered Discontinued Medications Generic Name Dose Route Start Last Admin Trade Name Freq PRN Reason Stop Dose Admin Ondansetron HCl 4 mg 11/01/25 00:59 11/01/25 01:00 Ondansetron Odt 4 Mg Tab.Rapdis TRANSLINGU 11/01/25 01:00 4 mg ONCE ONE Administration Medical Decision Making Medical Decision Making MDM Narrative: 64-year-old female with a history of diabetes, hypertension, hyperlipidemia recurrent urinary tract infection, chronic pain, obesity, GERD, who presents with low blood sugar. Patient states she woke this evening with a blood sugar of 83 and she felt nauseous. Her symptoms have since resolved after receiving Zofran. She denies dysuria, hematuria, belly pain, back pain or fever. Problem: Diabetes, recurrent urinary tract infection History: Per patient I have considered the following differential diagnoses: Hypoglycemia, insulin reaction, acute intra-abdominal pathology, UTI, pyelonephritis Plan: Screening labs including urinalysis were obtained from triage, it appears the patient has a urinary tract infection. She is not hypoglycemic, she is also not in DKA. Her sugars range from 188-227 here in the emergency room. She is not having any CVA tenderness to suggest pyelonephritis, and she is afebrile. I have independently reviewed the following tests: Labs: No leukocytosis, not anemic, no electrolyte abnormality, blood sugar 188, then 227, urine appears infected Differential Diagnosis Differential Diagnoses: The differential diagnosis associated with the presentation includes See medical decision-making Admission/Observation Consideration of admission/observation: Escalation of care including admission/observation considered Not applicable Lab Data MDM Lab Attestation statement: I reviewed the patient's lab results. 11/01/25 01:12 11/01/25 01:12 Labs: Lab Results 11/01/25 11/01/25 11/01/25 Range/Units 00:56 01:12 01:19 WBC 8.1 (4.8-10.8) X10*3/uL RBC 4.39 (4.20-5.50) X10*6/uL Hgb 12.4 (12.0-16.0) g/dl Hct 38.7 (37.0-47.0) % MCV 88.2 (80.0-98.0) fL MCH 28.2 (27.0-33.0) pg MCHC 32.0 (31.0-35.0) g/dl RDW 13.6 (11.0-16.0) % Plt Count 203 (160-400) X10*3/uL MPV 10.3 (9.4-12.3) fL Immature Gran % (Auto) 0.1 (0.0-0.4) % Neut % (Auto) 63.6 (45-73) % Lymph % (Auto) 27.2 (20-40) % Hockley % (Auto) 7.3 (2-11) % Eos % (Auto) 1.4 (0-4) % Baso % (Auto) 0.4 (0-2) % Lymph # (Auto) 2.2 (1.2-4.9) X10*3/uL Hockley # (Auto) 0.6 (0.1-1.2) X10*3/uL Eos # (Auto) 0.1 (0.0-0.4) X10*3/uL Baso # (Auto) 0.0 (0.0-0.2) X10*3/uL Abs Immat Gran (auto) 0.01 (0.00-0.03) X10*3/uL Absolute Neuts (auto) 5.2 (2.0-8.3) x10*3/uL Absolute Nucleated RBC 0.000 (0.0-0.012) X10*3/uL Nucleated RBC % (auto) 0.0 (0.0-0.2) /100WBC Sodium 142 (135-145) mmol/L Potassium 4.5 (3.3-5.1) mmol/L Chloride 106 (96-108) mmol/L Carbon Dioxide 27 (22-29) mmol/L Anion Gap 14 (12-20) BUN 14 (9-16) mg/dL Creatinine 0.64 (0.5-1.4) mg/dL Estim Creat Clear Calc 82.0 Estimated GFR > 60 POC Glucose 188 H (60-115) mg/dL Random Glucose 227 H (60-115) mg/dL Calcium 9.3 D (8.4-10.2) mg/dL Total Bilirubin 0.3 (0.0-1.0) mg/dL AST 26 (5-31) U/L ALT 30 (0-31) U/L Alkaline Phosphatase 89 (39-117) U/L Total Protein 7.0 (6.5-8.0) g/dL Albumin 4.1 (3.5-5.0) g/dL Lipase 32 (8-78) U/L Urine Color Yellow Urine Appearance Clear Urine pH 5.5 (5.0-9.0) Ur Specific [place] 1.015 (1.005-1.025) Urine Protein Negative (Neg-Trace) mg/dL Urine Glucose (UA) 100 H (Negative) mg/dL Urine Ketones Negative (Negative) mg/dL Urine Blood Negative (Negative) Urine Nitrite Negative (Negative) Ur Leukocyte Esterase Moderate (2+) H (Negative) Urine RBC 0-2 (0-2) /HPF Urine WBC >50 H (0-5) /HPF Ur Squamous Epith Cells 3-5 (0-2) /HPF Urine Bacteria None Seen (None Seen) Hyaline Casts 0-2 (0-2) /LPF Discharge Plan Discharge Clinical Impression: Urinary tract infection Qualifiers: Urinary tract infection type: acute cystitis Hematuria presence: without hematuria Qualified Code(s): N30.00 - Acute cystitis without hematuria Patient Disposition: Home, Self-Care Instructions: Urinary Tract Infection in Women (ED) Additional Instructions: Overall, your labs were normal, your blood sugar was not low, it was checked twice in the emergency room, your point of care was 188, your serum lab was 227. You do have a urinary tract infection. See home care instructions. Take the Macrobid as directed. Follow up with your primary care as needed. Uses Zofran as needed for nausea. Prescriptions: New nitrofurantoin monohyd/m-cryst [Macrobid] 100 mg capsule 100 mg PO Q12H 7 Days Qty: 13 0RF Rx Instructions: must administer with a meal/food ondansetron 4 mg tablet,disintegrating 4 mg PO Q8H PRN (Reason: nausea and vomiting) Qty: 10 0RF No Action Gaviscon Extra Strength 254-237.5 mg/5 mL suspension 10 ml PO QID PRN (Reason: dyspepsia) Qty: 355 0RF cetirizine 10 mg Tablet 10 mg PO DAILY sucralfate [Carafate] 1 gram tablet 1 g PO BID Qty: 60 0RF ondansetron 4 mg tablet,disintegrating 4 mg PO Q6H PRN (Reason: nausea and vomiting) Qty: 7 0RF sucralfate [Carafate] 100 mg/mL suspension 10 ml PO QID PRN (Reason: indigestion) Qty: 300 0RF Rx Instructions: swish in mouth and swallow; use after food/drink cephalexin 500 mg capsule 500 mg PO Q12H Qty: 13 0RF Centrum Women 18-400 mg-mcg tablet 1 tab PO DAILY cholecalciferol (vitamin D3) 50 mcg (2,000 unit) tablet 50 mcg PO DAILY sertraline 50 mg tablet 50 mg PO DAILY aspirin 81 mg tablet,delayed release (DR/EC) 81 mg PO DAILY omeprazole 20 mg capsule,delayed release(DR/EC) 20 mg PO DAILY atorvastatin 40 mg tablet 40 mg PO BEDTIME docusate sodium 100 mg capsule 100 mg PO DAILY (DME) lancets [FreeStyle Lancets] 28 gauge misc See Rx Instructions .ROUTE BID Qty: 100 Rx Instructions: As directed losartan 50 mg tablet 50 mg PO DAILY (DME) FreeStyle Lite Strips Strip See Rx Instructions Not Applicable BID Qty: 10 Rx Instructions: As directed Mounjaro 5 mg/0.5 mL pen injector subcut cetirizine-pseudoephedrine 5-120 mg tablet extended release 12 hr 1 tab PO BID 7 Days Qty: 14 0RF fluticasone propionate 50 mcg/actuation spray,suspension 1 spray intranasal Q12H Qty: 16 0RF Rx Instructions: administer into each nostril Print Language: Pashto
[2025-11-01 00:52] VITALS: BP 146/72; PULSE 100; RESP 16; TEMP 36.6; O2SAT 98; BMI 35.3
[2025-11-01 01:05] LABS: Glucose, Whole Blood 188 mg/dL (60-115)
[2025-11-01 01:25] LABS: Hematocrit 38.7 % (37.0-47.0); Hemoglobin 12.4 g/dl (12.0-16.0); Imm Gran Abs Auto 0.01 X10*3/uL (0.00-0.03); Imm Gran Pct Auto 0.1 % (0.0-0.4); Lymphocytes Absolute Auto 2.2 X10*3/uL (1.2-4.9); MANUAL DIFF FLAG NO; Mean Corpuscular HGB Conc 32.0 g/dl (31.0-35.0); Mean Corpuscular Hemoglobin 28.2 pg (27.0-33.0); Mean Corpuscular Volume 88.2 fL (80.0-98.0); NRBC Abs Auto 0.000 X10*3/uL (0.0-0.012); NRBC Pct Auto 0.0 /100WBC (0.0-0.2); Platelet Count 203 X10*3/uL (160-400); Red Blood Count 4.39 X10*6/uL (4.20-5.50); White Blood Count 8.1 X10*3/uL (4.8-10.8)
[2025-11-01 01:26] LABS: Appearance Urine Clear; Glucose Urine UA 100 mg/dL (Negative); PH 5.5 (5.0-9.0); Specific Gravity - Urine 1.015 (1.005-1.025); UMIC TRIGGER UA YES
[2025-11-01 01:40] LABS: Alanine Aminotransferase 30 U/L (0-31); Albumin Level 4.1 g/dL (3.5-5.0); Alkaline Phosphatase 89 U/L (39-117); Anion Gap 14 (12-20); Aspartate Amino Transferase 26 U/L (5-31); Blood Urea Nitrogen 14 mg/dL (9-16); Calcium 9.3 mg/dL (8.4-10.2); Carbon Dioxide 27 mmol/L (22-29); Chloride 106 mmol/L (96-108); Creatinine Clr Calc Pharmacy 82.0; Estimated Glomerular Filt Rate > 60; Lipase 32 U/L (8-78); Potassium 4.5 mmol/L (3.3-5.1); Sodium 142 mmol/L (135-145); Total Protein 7.0 g/dL (6.5-8.0)
--- OUTSIDE RECORDS SUMMARY | 2025-11-01 04:19 | XMS_ITS | Encounter Summary ---
Author Organization [employer] Address [address] [facility] 7t [place] [address] Care Team Providers Care Ceramics Machine Operator Name Role Phone Lorene Lugo DO Primary Care Provider Puia, Keiko PharmD Unavailable Reason for Visit * Reason Comments Med Refill Encounter Details Date Type Department Care Team (Late st Contact Info) Description 02/09/2025 Refill [facility] MED[facility]INE [address] [place], [place] [phone] Puia, Keiko, PharmD 230 [place] [address] Social History Tobacco Use Types Packs/Day Years [...] intended per last CDTM plan) waiting for picked edge sewing machine operator. This request for 2.5 mg [...] documented as of this encounter Care Teams Ceramics Machine Operator Relationship Specialty Start Date End Date Lorene Lugo DO [address] [place] [address] PCP - General Family Medicine 11/30/18 Keiko Bowman PharmD [address] [place] [address] Pharmacist Internal Medicine 06/19/23 04/09/25 documented as of this encounter
--- OUTSIDE RECORDS SUMMARY | 2025-11-01 04:19 | XMS_ITS | Encounter Summary ---
Author Organization [email or web address] Address [address] [facility] 7t [place] [address] Care Team Providers Care Paint Roller Cover Machine Setter Name Role Phone Lorene Lugo DO Primary Care Provider PuKeiko guzman PharmD Unavailable Reason for Visit * Reason Onset Date Comments Request For Order(s) 02/22/2024 Encounter Details Date Type Department Care Team ([facility] st Contact Info) Description 02/22/2024 Telephone [facility] MEDICINE [address] [place], [place] [phone] Lorene Lugo DO [address] [place] [address] Request For Order(s) Social History Tobacco Use [...] 3:57 PM EDT TC placed to pt [phone] in regards to below message. Pt reports she has already called [facility] to cancel the colonoscopy. Pt informed [...] not feeling well. Please contact pt at [phone] documented in this encounter Plan of Treatment [...] documented as of this encounter Care Teams Paint Roller Cover Machine Setter Relationship Specialty Start Date End Date Lorene Lugo DO [address] [place] [address] PCP - General Family Medicine 11/30/18 Keiko Bowman PharmD [address] [place] [address] Pharmacist Internal Medicine 06/19/23 04/09/25 documented as of this encounter
--- OUTSIDE RECORDS SUMMARY | 2025-11-01 04:19 | XMS_ITS | Encounter Summary ---
Author Organization [employer] Address [address] [facility] 7t [place] [address] Care Team Providers Care Artificial Cherry Maker Name Role Phone Lorene Lugo DO Primary Care Provider PuKeiko guzman PharmD Unavailable Reason for Visit * Reason Comments Med Refill Encounter Details Date Type Department Care Team (Late st Contact Info) Description 12/28/2024 Refill [facility] MEDICINE [address] [place], [place] [phone] Lorene Lugo DO [address] [place], [place] [phone] Social History Tobacco Use Types Packs/Day Years [...] documented as of this encounter Care Teams Artificial Cherry Maker Relationship Specialty Start Date End Date Lorene Lugo DO [address] [place] [address] PCP - General Family Medicine 11/30/18 Puia, Keiko, PharmD [address] [place] [address] Pharmacist Internal Medicine 06/19/23 04/09/25 documented as of this encounter
--- OUTSIDE RECORDS SUMMARY | 2025-11-01 04:19 | XMS_ITS | Encounter Summary ---
Author Organization [employer] Address [address] [facility] 7t [place] [address] Care Team Providers Care Lime Kiln Worker Name Role Phone Lorene Lugo DO Primary Care Provider Keiko Bowman PharmD Unavailable [phone] Encounter Details Date Type Department Care Team (Late st Contact Info) Description 12/27/2024 Orders Only [facility] [address] [place] [address] Provider, MD Belinda Social History Tobacco Use [...] On track( 023 9:44 AM EDT) No eKiko Bowman PharmD documented as of this encounter [...] documented as of this encounter Care Teams Lime Kiln Worker Relationship Specialty Start Date End Date Lorene Lugo DO [address] [place] [address] PCP - General Family Medicine 11/30/18 Keiko Bowman, Sumit [address] [place] [address] Pharmacist Internal Medicine 06/19/23 04/09/25 documented as of this encounter
--- OUTSIDE RECORDS SUMMARY | 2025-11-01 04:19 | XMS_ITS | Data Portability ---
Author Organization [place] [facility], Allergy Address [address] [facility] [address] [place] [address] Care Team Providers Care Instantizer Operator Name Role Phone GILBERT ANNA MARIE Primary [...] septal cautery [email or web address] Not available 09/22/2025 13:51:42 10/05/2025 10/05/2025 Evidence if left septal nasal nipple, dry at this time. No bleed since last visit. I offered cautery today, but She would like to hold off on cautery again. If she does have another bleed in the future would recommend left-sided nasal cautery with holding of aspirin the day before and the day of. Return visit as needed [email or web address] Not available 10/05/2025 10:22:40 Plan of Treatment Reminders Order Date Submit Date Provider Last Modified By Organization Details Last Modified Time Details Appointments Establish ed 15 2024 03:15P Dayana Land, DO Not available Not available [...] Details Recorded Time Tinnitus of vascular origin 244348443 Active 2019 Pulsatile tinnitus, left ear; Note: Date Diagnosed: 06/13/2020 10:12 AM (H93.A2) Not Available [facility] 4 03:24:42 Sensorine ural hearing loss of bilateral ears 161940156 Active 2019 Sensorineu ral hearing loss, bilateral; Note: Date Diagnosed: 06/13/2020 10:28 AM (H90.3) Not Available [facility] 4 03:24:42 Chronic cough 14281045 Active 2021 Chronic cough; Note: Date Diagnosed: 12/12/2021 12:01 PM (R05.3) Not Available [facility] 4 03:24:42 Bleeding from nose 524467117 Active 2021 Epistaxis; Note: Date Diagnosed: 03/10/2022 1:53 PM (R04.0) Not Available [facility] 4 03:24:42 Recurrent bleeding of nose Active 2024 Chapin Land, DO [address] [address], [place], [address] , [facility] - [facility] 5 08:45:52 Problem Notes None recorded. Medical Equipment None Reported. Allergies Allergen ID Allergen Name Allergen Category Reaction Reaction Severity Criticality Documentation Date Start Date Code Code System Note Provider Name and Address Organization Details Recorded Time 01921 Motrin medicatio n other Not available Not available 04/12/202437618 8 RxNorm React ion: unkno wn, unspe cifie d;; Not Available [facility] 4 00:49:42 Medications Name Sig Start Date [...] mg capsule 09/22 completed Medicati on ID: [id number] B rand Name: doxycycl ine hyclate Send Method: E-Prescr ibed Sub s Allowed: subs OK Speci al Instruct ion: TAKE 1 CAPSULE BY MOUTH DAILY WITH FOOD Med icationG enericNa me: doxycycl ine hyclate Not Available Not Available Not Available Saline Mist 0.65 % nasal spray aerosol 09/22 completed Medicati on ID: [id number] D uration Value: 14 Prescri bed By Name: LAVONNE Hensley nd Name: Saline Mist Sen d Method: E-Prescr ibed Sub s Allowed: subs OK Speci al Instruct ion: [place] 2 sprays in each nostril TID x 14 days Med icationG enericNa me: Saline Mist Not Available Not Available Not Available cetirizin e 10 mg tablet TAKE 1 TABLET BY MOUTH EVERY MORNING active Not Available Not Available No t Available senna 8.6 mg tablet 02/12 completed Medicati on ID: [id number] D uration Value: 90 Brand Name: senna [...] mg tablet 03/10 completed Medicati on ID: [id number] B rand Name: meclizin e Send Method: E-Prescr ibed Sub s Allowed: subs OK Speci al Instruct ion: TAKE 1 TABLET BY MOUTH THREE TIMES DAILY NEEDED FOR DIZZINES S Medica tionGene ricName: meclizin e Not Available Not Available Not Available metronida zole 500 mg tablet 09/22 completed Medicati on ID: [id number] B rand Name: metronid azole Se nd [...] topical cream 03/10 completed Medicati on ID: [id number] B rand Name: metronid azole Se nd [...] aerosol inhaler 03/10 completed Medicati on ID: [id number] B rand Name: albutero l sulfate Send Method: E-Prescr ibed Sub s Allowed: subs OK Speci al Instruct ion: INHALE 2 PUFFS BY MOUTH EVERY 4 TO 6 HOURS NEEDED FOR COUGH WHEEZE OR SHORTNES S OF BREATH M edicatio nGeneric Name: albutero l sulfate Not Available Not [...] 24 hr 03/10 completed Medicati on ID: [id number] B rand Name: homero townsend Send Method: E-Prescr ibed Sub s Allowed: subs OK Meghana al Instruct ion: TAKE 1 TABLET BY MOUTH EVERY EVENING WITH MEALS Me dication GenericN anisa: metformi n Not Available Not Available Not Available sertralin e 50 mg tablet active Not Available Not Available Not Available candesart an 8 mg tablet 12/12 completed Medicati on ID: [id number] D uration Value: 90 Brand Name: balwinder [...] topical gel 03/10 completed Medicati on ID: [id number] B rand Name: azelaic acid Sen d Method: E-Prescr ibed Sub s Allowed: subs CESARIO murray Instruct ion: APPLY TOPICALL Y TO FACE IN THE EVENING Medicati onGeneri cName: azelaic acid Not Available Not Available Not Available Alcohol Prep Pads USE TWICE DAILY 09/22 completed Not Available Not Available Not Available omega-3 acid ethyl esters 1 gram capsule 02/12 completed Medicati on ID: [id number] D uration Value: 90 Brand Name: omega-3 acid ethyl esters S end Method: E-Prescr ibed Sub s Allowed: subs CESARIO Kowalski al Instruct ion: TK 2 CS PO BID Medi cationGe nericNam e: omega-3 acid ethyl esters Not Available Not Available Not Available Essential Woman 50 Plus 0.4 mg-250 mcg tablet TAKE 1 TABLET BY MOUTH EVERY MORNING 09/22 completed Not Available Not Available Not Available FreeStyle Lite Meter kit 03/10 completed Medicati on ID: [id number] B rand Name: FreeStyl e Lite Meter Se nd Method: E-Prescr ibed Sub s Allowed: subs OK Speci al Instruct ion: TEST DIRECTED Medicat ionGener [...] mcg tablet 09/22 completed Medicati on ID: [id number] B rand Name: A Thru Z Advanced Formula Send Method: E-Prescr ibed Sub s Allowed: subs OK Speci al Instruct ion: TAKE 1 TABLET BY MOUTH EVERY DAY Medi cationGe nericNam e: A Thru Z Advanced Formula Not Available Not Available Not Available Breo Ellipta 200 mcg-25 mcg/dose powder for inhalatio n 03/10 completed Medicati on ID: [id number] B rand Name: Breo Ellipta Send Method: E-Prescr ibed Sub s Allowed: subs OK Medic ationGen ericName : Breo Ellipta Not Available Not Available Not Available Trulicity 3 mg/0.5 mL subcutane ous pen injector ADMINIST ER 3 MG UNDER THE SKIN 1 TIME EVERY WEEK 10/05 completed Not Available Not Available Not Available BinaxNOW COVID-19 Ag Self Test kit [...] Not Available Not Available Not Available Vitals Date Recorded Body height Body mass index (BMI) Body weight Provider Name and Address Organization Details Last Updated DateTime 10/05/2025 152.4 cm 35.2 kg/m2 64731.63 g Jenn Gonzalez [place] - [facility] 10/05/2025 09:52:00 Social History None recorded. Functional Status None recorded. Mental Status None recorded. Family History Nothing Reported. Medical History Condition Response High Cholesterol Y GERD/Reflux Y Gynecological HistoryNo gynecological history recorded. Obstetrics History GPAL:G 0 P 0 0 0 0 Past Encounters Encounter ID Performer Location Encounter Start Date Encounter Closed Date Diagnosis/Indication Diagnosis SNOMED-CT Code Diagnosis ICD10 Code Diagnosis IMO Codes Diagnosis Note [id number] Chapin Land, DO [facility] [address] [address] 09/22/2025 13:27:19 09/22/2025 13:51:40 Recurrent bleeding of nose 2895804119 102 R04.0 [id number] We discussed the importance of nasal moisture [...] they do not have an active bleed. [id number] Chapin Land, DO [facility] [address] [address] 10/05/2025 09:43:11 10/05/2025 10:21:20 Recurrent bleeding of nose 7678595813 102 R04.0 [id number] We discussed the importance of nasal moisture [...] Member ID Mills Member ID Guarantor Name 10/11/2025 1 [facility] - DOS ON OR AFTER 2023 - ONE C[employer] (MEDICARE REPLACEMENT/AD VANTAGE - HMO) Cheryl Samson [id number] Cheryl Samson Notes Date Note Type Note [...] seen by our PA team Chapin Land, [address], [address], [facility] - [facility] 09/22/2025 13:52:03 10/05/2025 text/html ROS as noted in the HPI Interval history: No bleeds since last visit. Has not been using any of recommended hydration products Previous visit: Recurring epistaxisLaterally : LeftDuration: Lasts minutesFrequency: DailyHx of Bleeding disorder: NoneBlood Thinners: Yes currently usingASAInterventi ons: NoneRecord/Referra l Review: Seen onPreviously seen in our clinic in December 2023 for recurrent epistaxis. At the time was always from the left for a few minutes. Tamponade works. She does not use an anticoagulant. No other bleeding disorders in the family. Was seen by our PA team Chapin Land, [address] [address], [place], [address], [facility] - [facility] 10/05/2025 10:22:55 OBGyn Episode No OBEpisode recorded.
--- OUTSIDE RECORDS SUMMARY | 2025-11-01 04:19 | XMS_ITS | Encounter Summary ---
Author Organization [employer] Address [address] [facility] 7t [place] [address] Care Team Providers Care Utility Worker Driver Name Role Phone Lorene Lugo DO Primary Care Provider [phone] PuKeiko guzman PharmD Unavailable [phone] Reason for Visit * Reason Comments Med Refill Encounter Details Date Type Department Care Team (Late st Contact Info) Description 09/24/2024 Refill [facility] MED & PEDS [address] [place], [place] [phone] Lorene Lugo DO [address] [place] [address] Social History Tobacco Use Types Packs/Day Years [...] documented as of this encounter Care Teams Utility Worker Driver Relationship Specialty Start Date End Date Lorene Lugo DO [address] [place] [address] PCP - General Family Medicine 11/30/18 Puia, Keiko, PharmD [address] [place] [address] Pharmacist Internal Medicine 06/19/23 04/09/25 documented as of this encounter
--- OUTSIDE RECORDS SUMMARY | 2025-11-01 04:19 | XMS_ITS | Encounter Summary ---
Author Organization [employer] Address [address] [facility] 7t [place] [address] Care Team Providers Care Petroleum Analyst Name Role Phone Lorene Lugo DO Primary Care Provider PuKeiko guzman PharmD Unavailable Reason for Visit * Reason Comments Med Refill Encounter Details Date Type Department Care Team (Late st Contact Info) Description 02/09/2025 Refill [facility] CHC MED & PEDS [address] [place], [place] [phone] Lorene Lugo DO [address] [place] [address] Healthcare maintenance Social History Tobacco Use Types [...] documented as of this encounter Care Teams Petroleum Analyst Relationship Specialty Start Date End Date Lorene Lugo DO [address] [place] [address] PCP - General Family Medicine 11/30/18 Puia, Keiko, PharmD [address] [place] [address] Pharmacist Internal Medicine 06/19/23 04/09/25 documented as of this encounter
--- OUTSIDE RECORDS SUMMARY | 2025-11-01 04:19 | XMS_ITS | Encounter Summary ---
Author Organization [employer] Address [address] [facility] 7t [place] [address] Care Team Providers Care Abstracter Name Role Phone Lorene Lugo DO Primary Care Provider [phone] Reason for Visit * Reason Comments Med Refill Encounter Details Date Type Department Care Team (Late st Contact Info) Description 08/30/[address] [facility] MED & PEDS [address] [place] [address] Lorene Lugo DO [address] [place] [address] Type 2 diabetes mellitus with microalbuminuria, without [...] documented as of this encounter Care Teams Abstracter Relationship Specialty Start Date End Date Lorene Lugo DO [address] [place] [address] PCP - General Family Medicine 11/30/18 documented as of this encounter
--- OUTSIDE RECORDS SUMMARY | 2025-11-01 04:19 | XMS_ITS | Encounter Summary ---
Author Organization [employer] Address [address] [facility] 7t [place] [address] Care Team Providers Care Staff Design Engineer Name Role Phone Lorene Lugo DO Primary Care Provider PuKeiko guzman PharmD Unavailable [phone] Reason for Visit * Reason Comments Med Refill Encounter Details Date Type Department Care Team (Late st Contact Info) Description 04/13/2024 Refill [facility] MED & PEDS [address] [place], [place] [phone] Lorene Lugo DO [address] [place] [address] Social History Tobacco Use Types Packs/Day Years [...] documented as of this encounter Care Teams Staff Design Engineer Relationship Specialty Start Date End Date Lorene Lugo DO [address] [place] [address] PCP - General Family Medicine 11/30/18 Puia, Keiko, PharmD [address] [place] [address] Pharmacist Internal Medicine 06/19/23 04/09/25 documented as of this encounter
--- OUTSIDE RECORDS SUMMARY | 2025-11-01 04:20 | XMS_ITS | Encounter Summary ---
Author Organization [employer] Address [address] [facility] 7t [place] [address] Care Team Providers Care Manual Arts Teacher Name Role Phone Lorene Lugo DO Primary Care Provider Keiko Bowman PharmD Unavailable Reason for Visit * Reason Comments Med Refill Encounter Details Date Type Department Care Team ([facility] st Contact Info) Description 08/12/2024 Refill [facility] CHC MED & PEDS [address] [place], [place] [phone] Ximena Florez FNP [address] [place], [place] [phone] Social History Tobacco Use Types Packs/Day Years [...] documented as of this encounter Care Teams Manual Arts Teacher Relationship Specialty Start Date End Date Lorene Lugo DO [address] [place] [address] PCP - General Family Medicine 11/30/18 Puia, Keiko, PharmD [address] [place] [address] Pharmacist Internal Medicine 06/19/23 04/09/25 documented as of this encounter
--- OUTSIDE RECORDS SUMMARY | 2025-11-01 04:20 | XMS_ITS | Encounter Summary ---
Author Organization [employer] Address [address] [place] [address] 7t [place] [address] Care Team Providers Care Ramp Agent Name Role Phone Lorene Lugo DO Primary Care Provider Delloghenrietta Alo PharmD Unavailable Unavail able Keiko Bowman PharmD Unavailable Encounter Details Date Type Department Care Team (Late st Contact Info) Description 12/30/2022 Telephone [facility] MEDICINE [address] [place], [place] [phone] Lorene Lugo DO [address] [place], [place] [phone] Social History Tobacco Use Types Packs/Day Years [...] on filedocumented in this encounter Care Teams Ramp Agent Relationship Specialty Start Date End Date Lorene Lugo DO [address] [place], [place] [phone] PCP - General Family Medicine 11/30/18 Alo Freitas, PharmD [address] [place] [address] Pharmacist Internal Medicine 02/11/23 06/18/23 Keiko Bowman, Sumit [address] [place] [address] Pharmacist Internal Medicine 06/19/23 04/09/25 documented as of this encounter
--- OUTSIDE RECORDS SUMMARY | 2025-11-01 04:20 | XMS_ITS | Continuity of Care Document ---
Author Organization [place] - [facility], [facility] Address [address] [place] [address] Care Team Providers Care Apartment Locator Name Role Phone GILBERT ANNA MARIE Primary Care Provider Assessment Encounter Date Assessment Date Assessment LastModified by Organization Details LastModified Time 10/05/2025 10/05/2025 Evidence if left septal nasal [...] Details Recorded Time Tinnitus of vascular origin 817430973 Active 2019 Pulsatile tinnitus, left ear; Note: Date Diagnosed: 06/13/2020 10:12 AM (H93.A2) Not Available [facility] 4 03:24:42 Sensorine ural hearing loss of bilateral ears 650001815 Active 2019 Sensorineu ral hearing loss, bilateral; Note: Date Diagnosed: 06/13/2020 10:28 AM (H90.3) Not Available [facility] 4 03:24:42 Chronic cough 33942010 Active 2021 Chronic cough; Note: Date Diagnosed: 12/12/2021 12:01 PM (R05.3) Not Available [facility] 4 03:24:42 Bleeding from nose 359890325 Active 2021 Epistaxis; Note: Date Diagnosed: 03/10/2022 1:53 PM (R04.0) Not Available [facility] 4 03:24:42 Recurrent bleeding of nose Active 2024 Chapin Land, [address],[place] [address], [place], [address] , [facility] - [facility] 5 08:45:52 Problem Notes None recorded. Medical Equipment None Reported. Allergies Allergen ID Allergen Name Allergen Category Reaction Reaction Severity Criticality Documentation Date Start Date Code Code System Note Provider Name and Address Organization Details Recorded Time 26832 Motrin medicatio n other Not available Not available 04/12/202459436 8 RxNorm React ion: unkno wn, unspe soila d;; Not Available [facility] 4 00:49:42 Medications Name Sig Start Date [...] mg capsule 09/22 completed Medicati on ID: [id number] B rand Name: doxycycl ine hyclate Send Method: E-Prescr ibed Sub s Allowed: subs OK Speci al Instruct ion: TAKE 1 CAPSULE BY MOUTH DAILY WITH FOOD Med icationG enericNa me: doxycycl ine hyclate Not Available Not Available Not Available Saline Mist 0.65 % nasal spray aerosol 09/22 completed Medicati on ID: [id number] D uration Value: 14 Prescri bed By Name: LAVONNE Hensley nd Name: Saline Mist Sen d Method: E-Prescr ibed Sub s Allowed: subs OK Speci al Instruct ion: Fontana 2 sprays in each nostril TID x 14 days Med icationG enericNa me: Saline Mist Not Available Not Available Not Available cetirizin e 10 mg tablet TAKE 1 TABLET BY MOUTH EVERY MORNING active Not Available Not Available No t Available senna 8.6 mg tablet 02/12 completed Medicati on ID: [id number] D uration Value: 90 Brand Name: senna [...] mg tablet 03/10 completed Medicati on ID: [id number] B rand Name: meclizin e Send Method: E-Prescr ibed Sub s Allowed: subs OK Speci al Instruct ion: TAKE 1 TABLET BY MOUTH THREE TIMES DAILY NEEDED FOR DIZZINES S Medica tionGene ricName: meclizin e Not Available Not Available Not Available metronida zole 500 mg tablet 09/22 completed Medicati on ID: [id number] B rand Name: metronid azole Se nd [...] topical cream 03/10 completed Medicati on ID: [id number] B rand Name: metronid azole Se nd Method: E-Prescr ibed Sub s Allowed: subs OK Speci al Instruct ion: APPLY TOPICALL Y TO FACE EVERY DAY IN THE MORNING NEEDED M mindajamesjono Flakito Name: metronid azole Not Available Not Available [...] aerosol inhaler 03/10 completed Medicati on ID: [id number] B rand Name: albutero l sulfate Send [...] 24 hr 03/10 completed Medicati on ID: [id number] B rand Name: metformi n Send Method: E-Prescr ibed Sub s Allowed: subs OK Specdevon al Instruct ion: TAKE 1 TABLET BY MOUTH EVERY EVENING WITH MEALS Me dication GenericN anisa: metformi n Not Available Not Available Not Available sertralin e 50 mg tablet active Not Available Not Available Not Available candesart an 8 mg tablet 12/12 completed Medicati on ID: [id number] D uration Value: 90 Brand Name: balwinder [...] topical gel 03/10 completed Medicati on ID: [id number] B rand Name: azelaic acid Sen d Method: E-Prescr ibed Sub s Allowed: subs CESARIO Kowalski al Instruct ion: APPLY TOPICALL Y TO FACE IN THE EVENING Medicati onGeneri cName: azelaic acid Not Available Not Available Not Available Alcohol Prep Pads USE TWICE DAILY 09/22 completed Not Available Not Available Not Available omega-3 acid ethyl esters 1 gram capsule 02/12 completed Medicati on ID: [id number] D uration Value: 90 Brand Name: omega-3 acid ethyl esters S end Method: E-Prescr ibed Sub s Allowed: subs OK Meghana murray Instruct ion: TK 2 CS PO BID Medi cationGe nericNam e: omega-3 acid ethyl esters Not Available Not Available Not Available Essential Woman 50 Plus 0.4 mg-250 mcg tablet TAKE 1 TABLET BY MOUTH EVERY MORNING 09/22 completed Not Available Not Available Not Available FreeStyle Lite Meter kit 03/10 completed Medicati on ID: [id number] B rand Name: FreeStyl e Lite Meter Se nd Method: E-Prescr ibed Sub s Allowed: subs OK Meghana al Instruct ion: TEST DIRECTED Medicat ionGener [...] mcg tablet 09/22 completed Medicati on ID: [id number] B rand Name: A Thru Z Advanced Formula Send Method: E-Prescr ibed Sub s Allowed: subs OK Speci al Instruct ion: TAKE 1 TABLET BY MOUTH EVERY DAY Medi cationGe nericNam e: A Thru Z Advanced Formula Not Available Not Available Not Available Breo Ellipta 200 mcg-25 mcg/dose powder for inhalatio n 03/10 completed Medicati on ID: [id number] B rand Name: Breo Ellipta Send Method: [...] Updated DateTime 10/05/2025 152.4 cm 35.2 kg/m2 69907.63 g Jenn Gonzalez [place] - [facility] 10/05/2025 09:52:00 Social History None recorded. [...] ICD10 Code Diagnosis IMO Codes Diagnosis Note [id number] Chapin Land, DO [facility] of [address] [address] 09/22/2025 13:27:19 09/22/2025 13:51:40 Recurrent bleeding of nose [id number] 102 R04.0 [id number] We discussed the importance of nasal moisture [...] they do not have an active bleed. [address] Chapin Land, DO [facility] of [address] [address] 10/05/2025 09:43:11 10/05/2025 10:21:20 Recurrent bleeding of nose [id number] 102 R04.0 [id number] We discussed the importance of nasal moisture [...] Member ID Mills Member ID Guarantor Name 10/05/2025 1 [facility] - DOS ON OR AFTER 2023 - ONE [employer] (MEDICARE REPLACEMENT/AD VANTAGE - HMO) Cheryl Samson [id number] Cheryl Samson Notes Date Note Type Note Provider Name and Address Organization Details Recorded Time 10/05/2025 text/html ROS as noted in the [...] seen by our PA team Chapin Land, [address],[place] [address], [place], [address], [facility] - [facility] 10/05/2025 10:22:55 OBGyn Episode No OBEpisode recorded.
--- OUTSIDE RECORDS SUMMARY | 2025-11-01 04:20 | XMS_ITS | Clinical Summary ---
Author Organization [facility] Address [address] [place] [address] Phone Care Team Providers Care Parking Enforcement Technician Name Role Phone Lorene Lugo DO Primary Care Provider [phone] Allergies Active Allergy Reactions Criticality Noted Date [...] time each day in the morning. Active Hospital, Clinic, or Other Facility Administered Medication Ordered Dose Route Frequency Start Date End Date Status lidocaine (PF) (XYLOCAINE-MPF) 1 % injection 0.5 mLIndications:Planta r fascial fibromatosis,Arthrit is of right ankle .5 mL Once PRN Procedure 10/02/2025 10/02/2025 Ended lidocaine (PF) (XYLOCAINE-MPF) 1 % injection 0.5 mLIndications:Planta r fascial fibromatosis,Arthrit is of right ankle .5 mL Once PRN Procedure 10/02/2025 10/02/2025 Ended triamcinolone acetonide (KENALOG-40) 40 mg/mL injection 20 mgIndications:Planta r fascial fibromatosis,Arthrit is of right ankle 20 mg Once PRN Procedure 10/02/2025 10/02/2025 Ended triamcinolone acetonide (KENALOG-40) 40 mg/mL injection 20 mgIndications:Planta r fascial fibromatosis,Arthrit is of right ankle 20 mg Once PRN Procedure 10/02/2025 10/02/2025 Ended Encounters Date Type Department Care Team Description 10/02/2025 8:15 AM EST Office Visit Orthopedic Surgery - [place] [address] [facility] [address] [place] [phone] Eleuterio Santiago, DPM Plantar fascial fibromatosis (Primary Dx); Disorder of ligament of right foot; Neuritis; Arthritis of right ankle 09/06/2025 8:28 AM EDT - 09/06/2025 11:59 PM EDT Hospital Encounter [facility] MRI [address] [place] [phone] Disorder of ligament of right foot Discharge Disposition: Home or Self Care 08/31/2025 8:15 AM EDT Office Visit Orthopedic Surgery [place] [address] [phone] Eleuterio Santiago DPM Disorder of ligament of right foot (Primary Dx); Plantar fascial fibromatosis; Calcaneal spur, right foot; Neuritis from Last 3 Months Social History Tobacco [...] Care Team (Late st Contact Info) Description 11/02/2025 8:15 AM EST Office Visit Orthopedic Surgery [facility] [address] [phone] Eleuterio Santiago DPM [address] [phone] Health Maintenance Due Date Last Done Comments [...] Procedure Name Priority Date/Time Associated Diagnosis Comments INJECTION TENDON OR LIGAMENT Routine 10/02/2025 8:15 AM EST Plantar fascial fibromatosis Arthritis of right ankle INJECTION TENDON OR LIGAMENT Routine 10/02/2025 8:15 AM EST Plantar fascial fibromatosis Arthritis of right ankle MR ANKLE WO CONTRAST RIGHT Routine 09/06/2025 9:14 AM EDT Disorder of ligament of right foot HEMOGLOBIN A1C Routine 04/22/1999 LIPID PANEL Routine 04/22/1999 from Last 3 Months or Most Recently Relevant to Health Maintenance Results * Injection tendon or ligament (10/02/2025 8:15 AM EST) Eleuterio Wright DPM - 10/02/2025 8:15 AM EST Eleuterio Santiago DPM 10/02/2025 12:57 PM Injection tendon or ligament Indications: pain Details: 25 G needle Medications: 0.5 mL lidocaine (PF) 1 %; 20 mg triamcinolone acetonide 40 mg/mL Informed Consent: Site: Foot ligament tendon Eleuterio Santiago DPM IN CLINIC/BEDSIDE ORDERAB LES Final Result * Injection tendon or ligament (10/02/2025 8:15 AM EST) Eleuterio Wright DPM - 10/02/2025 8:15 AM EST Eleuterio Santiago DPM 10/02/2025 12:57 PM Injection tendon or ligament Indications: pain Details: 25 G needle Medications: 0.5 mL lidocaine (PF) 1 %; 20 mg triamcinolone acetonide 40 mg/mL Informed Consent: Site: Foot ligament tendon Eleuterio Santiago DPM IN CLINIC/BEDSIDE ORDERAB LES Final Result * MR Ankle wo Contrast Right (09/06/2025 [...] Signed Date: 09/07/2025 04:25 ET Workstation ID: [id number] Transcribed By: Self Edit Transcribed Date: 09/07/2025 [...] Signed Date: 09/07/2025 04:25 ET Workstation ID: [id number] Transcribed By: Self Edit Transcribed Date: 09/07/2025 04:16 ET us Eleuterio Santiago DPM IMG MRI PROCEDURES Final [...] ID:[id number] Group ID:[id number] Type:Not on file Address: [facility] [address] [address] MEDICAID - [place] Care Teams Parking Enforcement Technician Relationship Specialty Start Date End Date Lorene Lugo DO [address] [place] [address] PCP - General Family Medicine 11/21/24
--- OUTSIDE RECORDS SUMMARY | 2025-11-01 04:20 | XMS_ITS | Encounter Summary ---
Author Organization [employer] Address [address] [facility] 7t [place] [address] Care Team Providers Care Echo Tech Name Role Phone Lorene Lugo DO Primary Care Provider Keiko Bowman PharmD Unavailable Reason for Visit * Reason Onset Date Comments Appointment Request 02/01/2024 Encounter Details Date Type Department Care Team (Late st Contact Info) Description 02/01/2024 Telephone [facility] MED[facility]INE [address] [place], [place] [phone] Lorene Lugo DO [address] [place], [place] [phone] Appointment Request Social History Tobacco Use Types [...] a DM follow up appt with PCP. Sound Engineer Audio Control verify notes from last visit on 08/25/2023 pcp put appt should be around 12/25 but we can't schedule [place] appts. Sound Engineer Audio Control advised someone will be calling to [...] documented as of this encounter Care Teams Echo Tech Relationship Specialty Start Date End Date Lorene Lugo DO [address] [place] [address] PCP - General Family Medicine 11/30/18 Keiko Bowman PharmD [address] [place] [address] Pharmacist Internal Medicine 06/19/23 04/09/25 documented as of this encounter
--- OUTSIDE RECORDS SUMMARY | 2025-11-01 04:20 | XMS_ITS | Encounter Summary ---
Author Organization [employer] Address [address] [facility] [address] [place] [address] Care Team Providers Care Mitigation Supervisor Name Role Phone Lorene Lugo DO Primary Care Provider [phone] Reason for Visit * Reason Comments Med Refill Encounter Details Date Type Department Care Team (Late st Contact Info) Description 10/27/2025 Refill [facility] MED[facility]INE [address] [place], [place] [phone] Lorene Lugo DO [address] [place], [place] [phone] Constipation, unspecified constipation type Social History Tobacco Use Types Packs/Day Years [...] 9:44 AM EDT) No Keiko Bowman, PharmD Help patients manage their type 2 diabetes Care Plan Help patients manage their type 2 diabetes No Royer Arita Weekly blood pressure task Care Plan Weekly blood pressure task No Royer Arita Help patients manage their type 2 diabetes Care Plan Help patients manage their type 2 diabetes No Royer Arita Patient has chronic kidney disease Care Plan Patient has chronic kidney disease No Royer Arita Weekly blood pressure task Care Plan Weekly blood pressure task No Royer Arita Patient has chronic kidney disease Care Plan Patient has chronic kidney disease No Royer Arita Weekly blood pressure task Care Plan Weekly blood pressure task No Yolis Woodruff RN Weekly blood pressure task Care Plan Weekly blood pressure task No Yolis Woodruff, RN Patient has chronic kidney disease Care Plan Patient has chronic kidney disease No Yolis Woodruff, RN Patient has chronic kidney disease Care Plan Patient has chronic kidney disease No Yolis Woodruff RN Weekly blood pressure task Care Plan Weekly blood pressure task No Benjie Soto Weekly blood pressure task Care Plan Weekly blood pressure task No Benjie Soto Patient has chronic kidney disease Care Plan Patient has chronic kidney disease No Benjie Soto Patient has chronic kidney disease Care Plan Patient has chronic kidney disease No Benjie Soto Weekly blood pressure task Care Plan Weekly blood pressure task No Benjie Soto Weekly blood pressure task Care Plan Weekly blood pressure task No Benjie Soto Patient has chronic kidney disease Care Plan Patient has chronic kidney disease No Benjie Soto Patient has chronic kidney disease Care Plan Patient has chronic kidney disease No Benjie Soto documented as of this encounter Visit Diagnoses Diagnosis Constipation, unspecified constipation type documented in this encounter Additional Health Concerns Active Problems Noted Date Diagnosed Date Help patients manage their type 2 diabetes 10/11 Weekly blood pressure task 10/11/2025 Help patients manage their type 2 diabetes 10/11 Patient has chronic kidney disease 10/11/2025 Weekly blood pressure task 10/11/2025 Patient has chronic kidney disease 10/11/2025 Weekly blood pressure task 10/12/2025 Weekly blood pressure task 10/12/2025 Patient has chronic kidney disease 10/12/2025 Patient has chronic kidney disease 10/12/2025 Weekly blood pressure task 10/19/2025 Weekly blood pressure task 10/19/2025 Patient has chronic kidney disease 10/19/2025 Patient has chronic kidney disease 10/19/2025 Weekly blood pressure task 10/19/2025 Weekly blood pressure task 10/19/2025 Patient has chronic kidney disease 10/19/2025 Patient has chronic kidney disease 10/19/2025 Assessment Noted Time PHQ-9 Depression Total Score: 0 08/29/20 25 2:16 PM EDT documented as of this encounter Care Teams Mitigation Supervisor Relationship Specialty Start Date End Date Lorene Lugo DO [address] [place] [id number] PCP - General Family Medicine 11/30/18 documented as of this encounter
--- OUTSIDE RECORDS SUMMARY | 2025-11-01 04:20 | XMS_ITS | Encounter Summary ---
Author Organization [employer] Address [address] [facility] [address]t [place] [address] Care Team Providers Care Interior Paneler Name Role Phone Lorene Lugo DO Primary Care Provider PuKeiko guzman PharmD Unavailable Reason for Visit * Reason Comments Med Refill Encounter Details Date Type Department Care Team (Late st Contact Info) Description 03/30/2025 Refill [facility] [address] [place], [place] [phone] Lorene Lugo DO [address] [place], [place] [phone] Social History Tobacco Use Types Packs/Day Years Used Date Smoking Tobacco: Never Passive Smoke Exposure: Never Smokeless Tobacco: Never Alcohol Use Standard Drinks/Week Comments Never 0 (1 standard drink = 0.6 oz pur e alcohol) Depression Answer Date Recorded Patient Health Questionnaire-9 Score 0 08/25/2023 Housing Stability Answer Date Recorded What is your housing situation today? I have patriica esequiel 09/14/[address] you [...] documented as of this encounter Care Teams Interior Paneler Relationship Specialty Start Date End Date Lorene Lugo DO [address] [place] [address] PCP - General Family Medicine 11/30/18 Puia, Keiko, PharmD [address] [place] [address] Pharmacist Internal Medicine 06/19/23 04/09/25 documented as of this encounter
--- OUTSIDE RECORDS SUMMARY | 2025-11-01 04:20 | XMS_ITS | Encounter Summary ---
Author Organization [employer] Address [address] [facility] [address]t [place] [address] Care Team Providers Care Horn Player Name Role Phone Lorene Lugo DO Primary Care Provider Keiko Bowman PharmD Unavailable Reason for Visit * Reason Comments Med Refill Encounter Details Date Type Department Care Team ([facility] st Contact Info) Description 08/14/2024 Refill [facility] [address] [place], [place] [phone] Ximena Florez FNP [address] [place], [place] [phone] Social History Tobacco Use Types Packs/Day Years [...] documented as of this encounter Care Teams Horn Player Relationship Specialty Start Date End Date Lorene Lugo DO [address] [place] [address] PCP - General Family Medicine 11/30/18 Puia, Keiko, PharmD [address] [place] [address] Pharmacist Internal Medicine 06/19/23 04/09/25 documented as of this encounter
--- OUTSIDE RECORDS SUMMARY | 2025-11-01 04:20 | XMS_ITS | Encounter Summary ---
Author Organization [facility] [facility] [employer] Address [address] [facility] [address] [place] [address] Care Team Providers Care Population Health Manager Name Role Phone Lorene Lugo DO Primary Care Provider [phone] Reason for Visit * Reason Comments Med Refill Encounter Details Date Type Department Care Team (Late st Contact Info) Description 06/28/2025 Refill [facility]INE [address] [place], [place] [phone] Keiko Bowman, PharmD [address] [place] [address] Type 2 diabetes mellitus with microalbuminuria, without long-term current use of insulin ([facility]); Essential hypertension Social History Tobacco Use [...] documented as of this encounter Care Teams Population Health Manager Relationship Specialty Start Date End Date Lorene Lugo DO [address] [place] [address] PCP - General Family Medicine 11/30/18 documented as of this encounter
--- OUTSIDE RECORDS SUMMARY | 2025-11-01 04:20 | XMS_ITS | Continuity of Care Document ---
Author Organization [place] - [facility], [facility] Address [address] [place] [address] Care Team Providers Care Night Time Nanny Name Role Phone ANNA MARIE HUNT Primary Care Provider Assessment Encounter Date Assessment [...] Details Recorded Time Tinnitus of vascular origin [id number] Active 2019 Pulsatile tinnitus, left ear; Note: Date Diagnosed: 06/13/2020 10:12 AM (H93.A2) Not Available [facility] 4 03:24:42 Sensorine ural hearing loss of bilateral ears 418093794 Active 2019 Sensorineu ral hearing loss, bilateral; Note: Date Diagnosed: 06/13/2020 10:28 AM (H90.3) Not Available [facility] 4 03:24:42 Chronic cough 51942481 Active 2021 Chronic cough; Note: Date Diagnosed: 12/12/2021 12:01 PM (R05.3) Not Available [facility] 4 03:24:42 Bleeding from nose 749424557 Active 2021 Epistaxis; Note: Date Diagnosed: 03/10/2022 1:53 PM (R04.0) Not Available [facility] 4 03:24:42 Recurrent bleeding of nose Active 2024 hCapin Land, [address],[place] [address], [place], [address] , [facility] - [facility] 5 08:45:52 Problem Notes None recorded. Medical Equipment None Reported. Allergies Allergen ID Allergen Name Allergen Category Reaction Reaction Severity Criticality Documentation Date Start Date Code Code System Note Provider Name and Address Organization Details Recorded Time 89353 Motrin medicatio n other Not available Not available 04/12/202474530 8 RxNorm React ion: unkno wn, unspe soila d;; Not Available [facility] 4 00:49:42 Medications Name Sig Start Date [...] mg capsule 09/22 completed Medicati on ID: [id number] B rand Name: doxycycl ine hyclate Send Method: E-Prescr ibed Sub s Allowed: subs OK Speci al Instruct ion: TAKE 1 CAPSULE BY MOUTH DAILY WITH FOOD Med icationG enericNa me: doxycycl ine hyclate Not Available Not Available Not Available Saline Mist 0.65 % nasal spray aerosol 09/22 completed Medicati on ID: [id number] D uration Value: 14 Prescri bed By Name: LAVONNE Hensley nd Name: Saline Mist Sen d Method: E-Prescr ibed Sub s Allowed: subs OK Speci al Instruct ion: [place] 2 sprays in each nostril TID x 14 days Med icationG enericNa me: Saline Mist Not Available Not Available Not Available cetirizin e 10 mg tablet TAKE 1 TABLET BY MOUTH EVERY MORNING active Not Available Not Available No t Available senna 8.6 mg tablet 02/12 completed Medicati on ID: [id number] D uration Value: 90 Brand Name: senna [...] mg tablet 03/10 completed Medicati on ID: [id number] B rand Name: meclizin e Send Method: E-Prescr ibed Sub s Allowed: subs OK Speci al Instruct ion: TAKE 1 TABLET BY MOUTH THREE TIMES DAILY NEEDED FOR DIZZINES S Medica tionGene ricName: meclizin e Not Available Not Available Not Available metronida zole 500 mg tablet 09/22 completed Medicati on ID: [id number] B rand Name: metronid azole Se nd [...] topical cream 03/10 completed Medicati on ID: [id number] B rand Name: metronid azole Se nd [...] aerosol inhaler 03/10 completed Medicati on ID: 536808 B rand Name: albutero l sulfate Send [...] 24 hr 03/10 completed Medicati on ID: [id number] B rand Name: metformi n Send Method: E-Prescr ibed Sub s Allowed: subs OK Speci al Instruct ion: TAKE 1 TABLET BY MOUTH EVERY EVENING WITH MEALS Me dication GenericN anisa: metformi n Not Available Not Available Not Available sertralin e 50 mg tablet active Not Available Not Available Not Available candesart an 8 mg tablet 12/12 completed Medicati on ID: [id number] D uration Value: 90 Brand Name: balwinder [...] topical gel 03/10 completed Medicati on ID: [id number] B rand Name: azelaic acid Sen d [...] gram capsule 02/12 completed Medicati on ID: [id number] D uration Value: 90 Brand Name: omega-3 [...] Meter kit 03/10 completed Medicati on ID: [id number] B rand Name: FreeStyl e Lite Meter [...] mcg tablet 09/22 completed Medicati on ID: [id number] B rand Name: A Thru Z Advanced Formula Send Method: E-Prescr ibed Sub s Allowed: subs OK Speci al Instruct ion: TAKE 1 TABLET BY MOUTH EVERY DAY Medi cationGe nericNam e: A Thru Z Advanced Formula Not Available Not Available Not Available Breo Ellipta 200 mcg-25 mcg/dose powder for inhalatio n 03/10 completed Medicati on ID: [id number] B rand Name: Breo Ellipta Send Method: [...] ICD10 Code Diagnosis IMO Codes Diagnosis Note [id number] Chapin Land DO [facility] [address] [address] 09/22/2025 13:27:19 09/22/2025 13:51:40 Recurrent bleeding of nose [id number] 102 R04.0 [id number] We discussed the importance of nasal moisture [...] Mills Member ID Guarantor Name 09/22/2025 1 [facility] - DOS ON OR AFTER 2023 - ONE CARE (MEDICARE REPLACEMENT/AD VANTAGE - HMO) Cheryl Samson [id number] Cheryl Samson Notes Date Note Type Note [...] seen by our PA team Chapin Land, DO [address] [facility],[place] [address], [place], [address], [facility] - [facility] 09/22/2025 13:52:03 OBGyn Episode No OBEpisode recorded.
--- OUTSIDE RECORDS SUMMARY | 2025-11-01 04:20 | XMS_ITS | Encounter Summary ---
Author Organization [facility] Address [address] [place] [address] Care Team Providers Care Chute Worker Name Role Phone Lorene Lugo DO Primary Care Provider [phone] Encounter Details Date Type Department Care Team (Late Contact Info) Description 06/22/2025 Lab Requisition [facility] - Main Lab [address] [facility] [place] [phone] Shant Kohler, SETH [address] [place] [phone] Calculus of kidney Social History Tobacco Use [...] Department Care Team (Late Contact Info) Description 11/02/2025 8:15 AM EST Office Visit Orthopedic Surgery - [place] [address] [phone] Eleuterio Santiago, DPM [address] [phone] documented as of this encounter Procedures Procedure Name Priority Date/Time Associated Diagnosis Comments PARATHYROID HORMONE INTACT Routine 06/22/2025 2:25 PM EDT Calculus of kidney documented in this encounter Results * Parathyroid hormone intact (06/22/2025 2:25 PM EDT) PTH 50.1 18.5 - 88.0 pcg/mL LAB CHEMISTRY METHOD 06/22/2025 6:46 PM EDT [facility] Blood Venous blood specimen / Unknown 06/22/2025 2:25 PM EDT 06/22/2025 6:13 PM EDT us Shant [facility] LAB BLOOD ORDERABLES Final Res ult [facility] [address] [place] [address], documented in this encounter Visit Diagnoses Diagnosis Calculus of kidney documented in this encounter Care Teams Chute Worker Relationship Specialty Start Date End Date Lorene Lugo DO [address] [place] [address] PCP - General Family Medicine 11/21/24 documented as of this encounter
--- OUTSIDE RECORDS SUMMARY | 2025-11-01 04:20 | XMS_ITS | Encounter Summary ---
Author Organization [employer] Address [address] [facility] [address] [place] [address] Care Team Providers Care Computed Tomography Technologist Name Role Phone Lorene Lugo DO Primary Care Provider Keiko Bowman PharmD Unavailable Reason for Visit * Reason Comments Med Refill Encounter Details Date Type Department Care Team ([facility] st Contact Info) Description 07/13/2024 Refill [facility] [address] [place], [place] [phone] Ximena Florez FNP [address] [place], [place] [phone] Social History Tobacco Use Types Packs/Day Years [...] documented as of this encounter Care Teams Computed Tomography Technologist Relationship Specialty Start Date End Date Lorene Lugo DO [address] [place] [address] PCP - General Family Medicine 11/30/18 Puia, Keiko, PharmD [address] [place] [address] Pharmacist Internal Medicine 06/19/23 04/09/25 documented as of this encounter
--- OUTSIDE RECORDS SUMMARY | 2025-11-01 04:20 | XMS_ITS | Encounter Summary ---
Author Organization [employer] Address [address] [place] [address] [address] [place] [address] Care Team Providers Care Roller Mechanic Name Role Phone Lorene Lugo DO Primary Care Provider Dellogono, Alo PharmD Unavailable Unavail able Pumegan Keiko PharmD Unavailable [phone] Encounter Details Date Type Department Care Team (Late st Contact Info) Description 01/06/2023 Orders Only [facility] [address] [place] [address] Lorene Hollingsworth LPN Social History Tobacco Use [...] EDT 08/25/2023 6:40 PM EDT Comment:UACC Narrative [facility] - 08/27/2023 11:24 AM EDT Urine Culture Report Result Urine Culture 10,000 to 50,000 cfu/ml Urine Culture Mixed bacterial meenu characteristic of Urine Culture urogenital contamination. Specimen Source: Urine clean catch Lorene Lugo DO LAB MICROBIOLOGY - GENERAL O RDERABLES Final Result Performing Organization Address [facility] Co de Phone Number [facility] [address] [place] [address] [phone] * (ABNORMAL) [employer] Covid-19 Ag (07/07/2023 1:04 PM EDT) [employer] Covid-19 Ag Positive (A) Negative [facility] Comment:Result reported to [facility], [facility].All test results must be correlated with clinical findings.This test has been authorized by the FDA under an EmergencyUse Authorization(EUA)for use by authorized laboratories.Testing performed on the [employer] Covid-19 Ag Card which eva lateral flow immunoassay. The test does not differentiatebetween the SARS-CoV and SARS-COV-2. 07/07/2023 1:04 PM EDT 07/07/2023 1:34 PM EDT [facility] Exter nal Provider LAB BODY FLUIDS AND STOOLS ORDERABLES Final Result Performing Organization Address [facility] de Phone Number [facility] [address] [place] [address] [phone] documented in this encounter Visit Diagnoses Not on filedocumented in this encounter Care Teams Roller Mechanic Relationship Specialty Start Date End Date Lorene Lugo DO [address] [place] [id number] PCP - General Family Medicine 11/30/18 Alo Freitas, PharmD [address] [place] [address] Pharmacist Internal Medicine 02/11/23 06/18/23 Keiok Bowman, Sumit [address] [place] [address] Pharmacist Internal Medicine 06/19/23 04/09/25 documented as of this encounter
--- OUTSIDE RECORDS SUMMARY | 2025-11-01 04:20 | XMS_ITS | Clinical Summary ---
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 Name Role Phone Brittney Lorene Primary Care Provider [phone] Allergies Active Allergy Reactions Criticality Noted Date Comments Goyo Inhibitors Cough Ibuprofen Rash Medium Other reaction(s): rash Other Reaction(s): Unknown Medications Alcohol Swabs (Alcohol Prep) 70 % pads [...] 90 tablet 3 02/10/20 25 Active FreeStyle lancetsIndications: Type 2 diabetes mellitus with microalbuminuria, without long-term current use of insulin (HCC) USE TO TEST BLOOD SUGAR TWICE DAILY 200 each 11 02/29/20 25 Active famotidine (Pepcid) 20 MG tablet Take 1 tablet (20 mg) by mouth if needed at bedtime for heartburn. 30 tablet 11 04/05/20 25 026 Active sucralfate (Carafate) 1 g tablet Take 1 tablet by mouth 2 times daily. 03/30/20 25 Active aspirin (Aspirin Low Dose) 81 MG EC tabletIndications:T ype 2 diabetes mellitus with microalbuminuria, without long-term current use of insulin ([facility]),Other hyperlipidemia Take 1 tablet (81 mg) by mouth in the morning. 90 tablet 3 04/10/20 25 Active losartan (Cozaar) 50 MG tabletIndications:T ype 2 diabetes mellitus with microalbuminuria, without long-term current use of insulin ([facility]),Essential hypertension Take 1 tablet (50 mg) by mouth Once daily. 90 tablet 3 04/10/20 25 Active Tirzepatide (Mounjaro) 5 MG/0.5ML solution auto-injectorIndica tions:Type 2 diabetes mellitus with microalbuminuria, without long-term current use of insulin ([facility]) Inject 5 mg under the skin 1 (one) time per week. 2 mL 04/10/20 25 Active Diclofenac Sodium 1 % gelIndications:Gang Boss kris pain of left knee Apply topically to [...] 25 Active omeprazole (PriLOSEC) [address] capsuleIndications: Chronic gastroesophageal reflux disease TAKE 1 CAPSULE BY MOUTH TWICE DAILY BEFORE BREAKFAST AND DINNER 180 capsule 06/15/20 25 Active cetirizine (ZyrTEC) 10 MG tablet TAKE 1 TABLET BY MOUTH EVERY MORNING 90 tablet 1 06/28/20 25 Active atorvastatin (Lipitor) 80 MG tabletIndications:T ype 2 diabetes mellitus with microalbuminuria, without long-term current use of insulin ([facility]),Other hyperlipidemia TAKE 1 TABLET(80 MG) BY MOUTH DAILY 90 tablet 3 08/09/20 25 Active glucose blood (FREESTYLE LITE) test stripIndications:Ty pe 2 diabetes mellitus with microalbuminuria, without long-term current use of insulin ([facility]) USE TO TEST BLOOD TWICE DAILY 100 strip 11 08/18/20 25 Active polycarbophil (Fibercon) 625 MG tablet Take 1 tablet (625 mg) by mouth 2 times daily. 180 tablet 3 08/28/20 25 026 Active gabapentin (Neurontin) 100 MG capsule Take 1 capsule (100 mg) by mouth at bedtime. 30 capsule 3 08/28/20 026 Active acetaminophen (Tylenol 8 Hour) 650 MG ER tablet Take 1 tablet (650 mg) by mouth every 8 (eight) hours if needed for mild pain. Do not crush, chew, or split. 60 tablet 2 10/21/20 24 025 Active Problems Problem Noted Date Diagnosed Date [...] Encounters Date Type Department Care Team Description 10/27/2025 Refill [facility] [address] [place] [address] Lorene Lugo DO Constipation, unspecified constipation type 10/19/2025 Telephone [facility] [address] [place] [address] Lorene Lugo DO Referral 10/19/[address] [address] Lorene Lugo DO Results 10/11/[address] [address] Lorene Lugo DO Results 10/08/[address] [address] Lorene Lugo DO Results 09/21/2025 Orders Only [address] [address] Lorene Lugo DO 08/30/2025 Refill [facility] [address] [place] [address] Lorene Lugo DO Type 2 diabetes mellitus with microalbuminuria, without long-term current use of insulin ([facility]) 08/28/2025 9:00 AM EDT Office Visit [address] [address] Lorene Lugo DO Type 2 diabetes mellitus with diabetic microalbuminuria, without long-term current use of insulin ([facility]) (Primary Dx); Essential hypertension; Other hyperlipidemia; Fatty liver; Anxiety; Mitral valve insufficiency, unspecified etiology; Chronic gastroesophageal reflux disease; Chronic constipation; History of nephrolithiasis; Left leg pain; Balance disorder; Healthcare maintenance; Dietary counseling; Exercise counseling; Encounter for immunization 08/28/2025 Travel 08/24/2025 Telephone [facility] [address] [place] [address] Lorene Lugo DO Call back request 08/22/2025 Telephone [facility] [address] [place] [address] Lorene Lugo DO Chart Prep 08/21/2025 Patient Outreach [facility] [address] [place] [address] Lorene Lugo DO Pre-visit Planning ((Unable to reach for PVP screening, LVM) to be completed in office ) 08/17/2025 Refill [facility] [address] [place] [address] Lorene Lugo DO Type 2 diabetes mellitus with microalbuminuria, without long-term current use of insulin ([facility]) 08/08/2025 Refill [facility] [address] [place] [address] Lorene Lugo DO Type 2 diabetes mellitus with microalbuminuria, without long-term current use of insulin ([facility]); Other hyperlipidemia 08/02/2025 Telephone [facility] [address] [place] [address] Lorene Lugo DO Recall Appointment 08/02/2025 Travel from Last 3 Months Immunizations Immunization Administration [...] 023 9:44 AM EDT) No Keiko Bowman, Sumit Help patients manage their type 2 diabetes [...] blood pressure task No Yolis Woodruff RN Patient has chronic kidney disease Care Plan Patient has chronic kidney disease No Yolis Woodruff RN Patient has chronic kidney disease Care [...] has chronic kidney disease No Benjie Soto Procedures Procedure Name Priority Date/Time Associated Diagnosis Comments VASC US CAROTID ARTERY DUPLEX BILATERAL Routine 10/17/2025 12:47 AM EST Balance disorder US ABDOMEN COMPLETE Routine 10/16/2025 8 :18 PM EST Fatty liver MR BRAIN WO CONTRAST Routine 09/25/2025 9:53 AM EDT Balance disorder BI MAMMOGRAM SCREENING TOMOSYNTHESIS BILATERAL Routine 09/21/2025 10:18 AM EDT POCT GLYCATED HEMOGLOBIN, TOTAL Routine 08/28/2025 9:15 AM EDT Type 2 diabetes mellitus with diabetic microalbuminuria, without long-term current use of insulin (CMS/HCC) POCT GLUCOSE Routine 08/28/2025 9:15 AM EDT [...] Recently Relevant to Health Maintenance Results * Vascular US carotid artery duplex bilateral (10/17/2025 12:47 AM EST) 10/17/2025 12:4 7 AM EST Narrative [facility] - 10/17/2025 12:48 AM EST [facility] Adult Primary Care [facility] [address] Ultrasound Report Signed Patient: Cheryl Samson I MR#: [id number] 96 : 1960 Acct:[id number] Age/Sex: 64 / F ADM Date: 10/16/25 Loc: HO.HMGCX Attending Dr: Lorene Lugo DO Ordering Physician: Lorene Lugo DO Date of Service: 10/16/25 Procedure(s): US carotid duplex BI Accession Number(s): [id number] cc: Lorene Lugo DO Reason for Exam: ABNORMAL GAIT MOBILITY CLINICAL HISTORY: ABNORMAL GAIT MOBILITY US bilateral carotid duplex Comparison: None Provided Findings: Waveforms demonstrate normal pattern. Peak systolic velocities: Right CCA: 77 cm/s Right ICA: 93 cm/s ICA/CCA ratio: 1.2 Right ECA: Unremarkable Right vertebral artery flow antegrade. No significant plaque noted. Left CCA: 93 cm/s Left ICA: 101 cm/s ICA/CCA ratio: 1.1 Left ECA: Unremarkable Left vertebral artery flow antegrade. No significant plaque noted. Impression: No significant velocity altering stenosis This document has been electronically signed by: Miky Broussard MD on 10/17/2025 00:47:11 Dictated By: Miky Broussard MD Signed By: <Electronically signed by Miky Broussard MD in OV> 10/17/2547 DD/ TD/TT: 10/17/2546 Customer Marketing Intern: Procedure Note Donotuseinterpreter, Image - 10/17/2025 [facility] Primary Care [facility] [address] Ultrasound Report Signed Patient: Cheryl Samson [facility]#: [id number] 96 : 9Acct:[id number] Age/Sex: 64 / FADM Date: 10/16/25 Loc: .HMGCX Attending Dr: Lorene Lugo DO Ordering Physician: Lorene Lugo DO Date of Service: 10/16/25 Procedure(s): US carotid duplex BI Accession Number(s): [id number] cc: Lorene Lugo DO Reason for Exam: ABNORMAL GAIT MOBILITY CLINICAL HISTORY: ABNORMAL GAIT MOBILITY US bilateral carotid duplex Comparison: None Provided Findings: Waveforms demonstrate normal pattern. Peak systolic velocities: Right CCA: 77 cm/s Right ICA: 93 cm/s ICA/CCA ratio: 1.2 Right ECA: Unremarkable Right vertebral artery flow antegrade. No significant plaque noted. Left CCA: 93 cm/s Left ICA: 101 cm/s ICA/CCA ratio: 1.1 Left ECA: Unremarkable Left vertebral artery flow antegrade. No significant plaque noted. Impression: No significant velocity altering stenosis This document has been electronically signed by: Miky Broussard MD on 10/17/2025 00:47:11 Dictated By: Miky Broussard MD Signed By: <Electronically signed by Miky Broussard MD in OV> 10/17/2547 DD/ TD/TT: 10/17/2546 Customer Marketing Intern: us Lorene Lugo DO CV VASCULAR PROCEDURES Final Result [facility] [address] [place] [address] [phone] * US Abdomen Complete (10/16/2025 8:18 PM EST) Anatomical Region Laterality Modality Abdomen Ultrasound 10/16/2025 8:18 PM EST Narrative 10/16/2025 8:19 PM EST [facility] Adult Primary Care [facility] [address] Ultrasound Report Signed Patient: Cheryl Samson I MR#: [id number] 96 : 1960 Acct:[id number] Age/Sex: 64 / F ADM Date: 10/16/25 Loc: HO.HMGCX Attending Dr: Lorene Lugo DO Ordering Physician: Lorene Lugo DO Date of Service: 10/16/25 Procedure(s): US abdomen complete Accession Number(s): [id number] cc: Lorene Lugo DO Reason for Exam: f/u fatty liver CLINICAL HISTORY: f u fatty liver US abdomen complete Comparison: 10/02/2023 Findings: Gallbladder normal without stones or wall thickening. Common duct measures 1.8 mm. No sonographic Mcdowell sign. Liver is homogeneous and normal in size and echogenicity. Right lobe measures 14.9 cm in length. Main portal vein patent with normal direction of flow. Pancreas is unremarkable. Aorta and IVC patent and normal in caliber. The right kidney is normal, 10.6 cm in length. The left kidney is normal, 10.4 cm in length. Small nonobstructing bilateral renal stones. No hydronephrosis or significant focal abnormality. The spleen is normal, 10.0 cm in length. No focal abnormality. Impression: Small nonobstructing renal stones Otherwise unremarkable This document has been electronically signed by: Miky Broussard MD on 10/16/2025 20:18:19 Dictated By: Miky Broussard MD Signed By: <Electronically signed by Miky Broussard MD in OV> 10/16/252018 DD/ 17 TD/TT: 10/16/252017 Customer Marketing Intern: Procedure Note Donotuseinterpreter, Image - 10/16/2025 [facility] Adult Primary Care [facility] [address] Ultrasound Report Signed Patient: Cheryl Samson [facility]#: [id number] 96 : 9Acct:[id number] Age/Sex: 64 / FADM Date: 10/16/25 [facility]: Lorene Lugo DO Ordering Physician: Lorene Lugo DO Date of Service: 10/16/25 Procedure(s): US abdomen complete Accession Number(s): [id number] cc: Lorene Lugo DO Reason for Exam: f/u fatty liver CLINICAL HISTORY: f u fatty liver US abdomen complete Comparison: 10/02/2023 Findings: Gallbladder normal without stones or wall thickening. Common duct measures 1.8 mm. No sonographic Mcdowell sign. Liver is homogeneous and normal in size and echogenicity. Right lobe measures 14.9 cm in length. Main portal vein patent with normal direction of flow. Pancreas is unremarkable. Aorta and IVC patent and normal in caliber. The right kidney is normal, 10.6 cm in length. The left kidney is normal, 10.4 cm in length. Small nonobstructing bilateral renal stones. No hydronephrosis or significant focal abnormality. The spleen is normal, 10.0 cm in length. No focal abnormality. Impression: Small nonobstructing renal stones Otherwise unremarkable This document has been electronically signed by: Miky Broussard MD on 10/16/2025 20:18:19 Dictated By: Miky Broussard MD Signed By: <Electronically signed by Miky Broussard MD in OV> 10/16/252018 DD/ 17 TD/TT: 10/16/252017 Customer Marketing Intern: us Lorene Lugo DO IMG US PROCEDURES Final Resu lt * MR Brain w/o Contrast (09/25/2025 9:53 AM EDT) Anatomical Region Laterality Modality Brain Magnetic Resonan ce 09/25/2025 9:53 AM EDT Narrative 09/25/2025 10:51 AM EDT [place] [address] Magnetic Resonance Report Signed Patient: Cheryl Samson I MR#: [id number] 96 : 1960 Acct:[id number] Age/Sex: 64 / F ADM Date: 09/25/25 Loc: HO.MRI Attending Dr: Lorene Lugo DO Ordering Physician: Lorene Lugo DO Date of Service: 09/25/25 Procedure(s): MR head/brain wo con Accession Number(s): [id number] cc: Lorene Lugo DO Reason for Exam: [...] 09/25/25 1048 DD/ 0953 TD/TT: 09/25/25 1030 Customer Marketing Intern: Procedure Note Donotuseinterpreter, Image - 09/25/[address] [address] Magnetic Resonance Report Signed Patient: Cheryl Samson IMR#: [id number] 96 : 1960cct:[id number] Age/Sex: 64 / FADM Date: 09/25/25 Loc: HO.MRI Attending Dr: Lorene Lugo DO Ordering Physician: Lorene Lugo DO Date of Service: 09/25/25 Procedure(s): MR head/brain wo con Accession Number(s): [id number] cc: Lorene Lugo DO Reason for Exam: [...] Jules Devries MD 09/25/2025 10:48 AM EDT RP Dictated By: Jules Frank MD Signed By: <Electronically signed by Jules Samson MDin OV> 09/25/25 1048 DD/ 0953 TD/TT: 09/25/25 1030 Customer Marketing Intern: Lorene Lugo DO IMG MRI PROCEDURES Edited Re sult - Final * BI Mammogram Screening Tomosynthesis Bilateral (09/21/2025 10:18 AM EDT) Anatomical Region Laterality Modality Breast Bilateral Mammography 09/21/2025 10:1 8 AM EDT Narrative 09/24/2025 6:02 PM EDT [facility] [place], [place] [address] Mammography Report Signed Patient: Cheryl Samson I MR#: [id number] 96 : 1960 Acct:[id number] Age/Sex: 64 / F ADM Date: 09/21/25 Loc: HO.MAMMO Attending Dr: Lorene Lugo DO Ordering Physician: Lorene Lugo DO Results: 1N egative Date of Service: 09/21/25 Follow Up: 1 Year From Orig [facility] Mammogram Procedure(s): MM tomosynthesis screening BI Accession Number(s): [id number] cc: Lorene Lugo DO Reason For Exam: [...] 09/24/25 1759 DD/ 1018 TD/TT: 09/21/25 1023 Customer Marketing Intern: Procedure Note Donotuseinterpreter, Image - 09/24/2025 [facility] [address] [place] [address] Mammography Report Signed Patient: Cheryl Samson IMR#: [id number] 96 : 9Acct:[id number] Age/Sex: 64 / FADM Date: 09/21/25 Loc: HO.MAMMO Attending Dr: Lorene Lugo DO Ordering Physician: Lorene Lugoults: 1N egative Date of Service: 09/21/25Follow Up: 1 Year From Orig ina Mammogram Procedure(s): MM tomosynthesis screening BI Accession Number(s): [id number] cc: Lorene Lugo DO Reason For Exam: [...] Park Russo MD 09/24/2025 05:59 PM EDT RP Dictated By: Park Russo MD Signed By: <Electronically signed by Park Russo MD in OV> 09/24/25 1759 DD/ 1018 TD/TT: 09/21/25 1023 Customer Marketing Intern: Lorene Lugo DO IMG BI PROCEDURES Edited [...] Final Result * (ABNORMAL) Lipid Panel, Standard (04/06/2025 10:19 AM EDT) Triglycerides 74 <150 mg/dL [facility] Comment:Desirable Triglyceri de: less than 150 mg/dLBorderline High Triglyceride 150-199 mg/dLHigh Triglyceride: 200-499 mg/dLVery High Triglyceride: greater than or equal to 5OO mg/dL Cholesterol 115 <200 mg/dL [facility] Comment:Desirable Cholestero l: less than 200 mg/dLBorderline High Cholesterol: 200-239 mg/dLHigh Cholesterol: greater than 239 mg/dL LDL Cholesterol Calculated 61 <100 mg/dL [facility] Comment:Desirable LDL: less than 100 mg/dLNear Optimal/Above Optimal LDL: 110- 129 mg/dLBorderline High LDL: 130-159 mg/dLHigh LDL: 160-189 mg/dLVery High LDL: greater than or equal to 190 mg/dL HDL Cholesterol 40(L) >40 mg/dL [facility] Comment:Desirable HDL: great er than 40 mg/dL Note: This HDL assay may give artificially low results in patients with liver disease. Blood Venous blood specimen / Unknown 04/06/2025 10:19 AM EDT 04/06/2025 11:05 AM EDT Lorene Lugo DO LAB BLOOD ORDERABLES Final R esult [facility] [address] [place] [address] [phone] * (ABNORMAL) Cologuard?? colon cancer screening (03/04/2024 3:00 PM EDT) Cologuard Result Positive( A) Negative 03/10/2024 10:28 AM EDT [employer] (CLIA #:[id number]) Comment: POSITIVE TEST RESULT. A positive Cologuard [...] Rivers et al, N Engl J Med 2014;370(14):1686-5929.) Cologuard may produce a false negative or [...] can be accessed at the following location: www.[email or web address]/results. Additional description of the Cologuard test process, warnings and precautions can be found at [email or web address].inrd.com. Stool specimen (specimen) 03/04/2024 3:00 PM EDT 03/05/2024 11:39 AM EDT Lorene Lugo DO LAB MOLECULAR DIAGNOSTICS OR DERABLES Final Result [employer] (CLIA #:[id number]) [place] [address], * Hepatitis C Antibody with Reflex to HCV RNA,PCR w/Reflex to Genotype, LiPA (01/23/2023 8:47 AM EST) Hepatitis C Antibody NON-REACT MARCE NON-REACT MARCE [facility] [employer] [place] [facility] Index <0.02 <1.00 [facility] [place] [facility] Comment: HCV antibody was non-reactive. There is no laboratory evidence of HCV infection. In most cases, no further action is required. However, if recent HCV exposure is suspected, a test for HCV RNA (test code 73914) is suggested. For additional information, please refer to http://education.[employer]/faq/MGC635 (This link is being provided for informational/ educational purposes only.) 01/23/2023 8:47 AM EST 01/23/2023 8:48 AM EST Narrative [facility] - 01/24/2023 6:35 PM EST FASTING:YES FASTING: YES Lorene Lugo DO LAB BLOOD ORDERABLES Final R esult [address] [place] [address] [facility] [employer] [place] [facility] [address] [facility], ([address]) [place] [address] * Thinprep PAP, HPV mRNA E6/E7 RFX HPV 16,18/45, Chlamydia/N. Gonorrhoeae (01/16/2023 10:19 AM EST) Pathologist [facility] Clinical Information: SREENIN PAP [facility] [place] [facility] LMP: NONE GIVEN Xamplified Prev. PAP: YES [employer] [facility] [employer] [place] Prev. BX: NO [facility] [employer] [place] [facility] SOURCE: [facility] Statement Of Adequacy: SATISFACTORY FOR EVALUATION Partially obscuring inflammation Xamplified Interpretation/Re sult: X[employer]ified Comment: Negative for intraepithelial lesion or malignancy. Atrophic pattern; predominantly parabasal cells Reception Specialist: [employer] [facility] [employer] Comment: KR, CT(ASCP) CT screening location: [address] [address] (Always Message) [facility] Comment: EXPLANATORY NOTE: The Pap is a [...] HPV nRNA E6/E7 Not Detected Not Detected [facility] [place] [facility] Comment: Methodology: Water Well Driller-Mediated Amplification This assay detects E6/E7 viral messenger RNA (mRNA) from 14 high-risk HPV types (16,18,31,33,35,39,45,51,52,56,58,59,66,68). Cervical sources are required for HPV testing. If a vaginal source from a patient who has had a total hysterectomy with removal of cervix was submitted, please contact the testing laboratory for alternative testing options. For additional information, please refer to http://[employer]/faq/IWU572i5 (This link if provided for information/ educational purposes only.) Chlamydia trachomatis RNA, TMA, Urogenital NOT DETECTED NOT DETECTED [facility] [place] [facility] Neisseria gonorrhoeae RNA, TMA, Urogenital NOT DETECTED NOT DETECTED Xamplified Comment [facility] [place] [facility] Comment: The analytical performance characteristics of this assay, when used to test SurePath(TM) specimens have been determined by [employer] [facility] [employer]. The modifications have not been cleared or approved by the FDA. This assay has been validated pursuant to the CLIA regulations and is used for clinical purposes. For additional information, please refer to https://[employer]/faq/CYT070 (This link is being provided for information/ educational purposes only.) Specimen from uterine cervix (specimen) 01/16/2023 10:19 AM EST 01/19/2023 12:52 AM EST us Lorene Lugo DO LAB PATHOLOGY ORDERABLES Fin al Result [address] [place] [address] [facility] [address], ([address]) [place] [address] * Colonoscopy (12/13/2014) Colonoscopy Normal Normal Comment:Hyperplastic polyps 10yr 12/13/2014 Lauro Paredes MD HEALTH MAINTENANCE Final Res ult from Last 3 Months or Most Recently Relevant to Health Maintenance Additional Health Concerns Active Problems Noted Date [...] 10/19/2025 Patient has chronic kidney disease 10/19/2025 Insurance [facility] CUSTODIAL OPTIONS (O D-SNP) [place] [id number] Care Teams Blasting Cap Assembler Relationship Specialty Start Date End Date Lorene Lugo DO [address] [place] [id number] PCP - General Family Medicine 11/30/18
[2025-11-01 04:40] VITALS: BP 123/44; PULSE 87; RESP 16; TEMP 36.6; O2SAT 98
== END 2025-11-01 04:41 | disposition home or self-care (01) ==
PROVIDERS: Student in an Organized Health Care Education/Training Program; Emergency Provider Emergency Medicine; PCP Family Medicine
DX: N30.00 Acute cystitis without hematuria (principal); R11.2 Nausea with vomiting, unspecified; R19.7 Diarrhea, unspecified; I10 Essential (primary) hypertension; E11.9 Type 2 diabetes mellitus without complications; E78.5 Hyperlipidemia, unspecified; K21.9 Gastro-esophageal reflux disease without esophagitis
CPT/HCPCS: 36415; 80053; 81001; 82947; 83690; 85025; 99282; 99283